=== PATIENT | female | born 1965 | race Caucasian/White ===

== ENCOUNTER → 2016-04-08 | Outpatient (CLI) | payer MEDICAID | LOC: RAD 12:34 | PROVIDERS: ATTEND Family Medicine | DX: M25.561 Pain in right knee (principal); M54.5 Low back pain | CPT/HCPCS: 72110 ==

== ENCOUNTER 2016-05-07 12:35 | Inpatient (IN) | payer MEDICAID ==
[2016-05-07] MEDS ORDERED: ASPIRIN 81 MG TABLET, CHEWABLE PO ONE (12:56)
[2016-05-07] MEDS ORDERED: DILTIAZEM HCL INJ 25 MG/5 ML VIAL IV ONE ×2 (13:10→14:11)
[2016-05-07] MEDS ORDERED: DILTIAZEM HCL/D5W 125 ML IV PRN (13:10)
[2016-05-07 13:40] LABS: HEMATOCRIT 40.9 % (36.0-47.0); HEMOGLOBIN 13.2 g/dL (12.0-15.5); HGB HCT DIFFERENCE -1.3; MEAN CORPUSCULAR HEMOGLOBIN 30.8 pg (27.0-33.4); MEAN CORPUSCULAR HGB CONC 32.4 g/dL (32.0-36.0); MEAN CORPUSCULAR VOLUME 95 fl (80-97); RED CELL DISTRIBUTION WIDTH 12.9 % (11.5-14.0); WHITE BLOOD COUNT 7.9 10^3/uL (4.0-10.5)
--- NOTE | 2016-05-07 13:47 | EKG REPORT ---
SEVERITY:- ABNORMAL ECG - ATRIAL FIBRILLATION WITH RVR. REPOLARIZATION ABNORMALITY, PROB RATE RELATED : Confirmed by: Jeramie Quevedo MD 07-May-2016 13:46:54
[2016-05-07 13:48] LABS: ALANINE AMINOTRANSFERASE 28 U/L (9-52); ALBUMIN 3.9 g/dL (3.5-5.0); ALKALINE PHOSPHATASE 105 U/L (38-126); ANION GAP 14 (5-19); ASPARTATE AMINO TRANSFERASE 31 U/L (14-36); BILIRUBIN,TOTAL 0.5 mg/dL (0.2-1.3); BLOOD UREA NITROGEN 6 mg/dL (7-20); CALCIUM 9.5 mg/dL (8.4-10.2); CARBON DIOXIDE 23 mmol/L (22-30); CHLORIDE 103 mmol/L (98-107); CREATINE KINASE 110 U/L (30-135); CREATININE RESULT 0.87 mg/dL (0.52-1.25); GLUCOSE 185 mg/dL (75-110); MAGNESIUM 1.4 mg/dL (1.6-2.3); POTASSIUM 3.9 mmol/L (3.6-5.0); SODIUM 139.9 mmol/L (137-145); TOTAL PROTEIN 7.1 g/dL (6.3-8.2)
[2016-05-07 14:04] LABS: CREATINE KINASE MB 0.56 ng/mL (<4.55)
[2016-05-07 14:05] LABS: BASOPHILS % (MANUAL) 0 % (0-2); EOSINOPHILS % (MANUAL) 0 % (0-6); HYPOCHROMASIA SLIGHT; LYMPHOCYTES % (MANUAL) 46 % (13-45); POLYCHROMASIA SLIGHT; TOTAL CELLS COUNTED 100
[2016-05-07 14:09] LABS: TROPONIN I < 0.012 ng/mL
[2016-05-07] MEDS ORDERED: NORMAL SALINE 1000 ML 1,000 ML IV ONE (14:17)
[2016-05-07 14:28] LABS: THYROID STIMULATING HORMONE 4.29 uIU/mL (0.47-4.68)
[2016-05-07] MEDS ORDERED: ENOXAPARIN SODIUM INJ 100 MG/1 ML DISP.SYRIN SUBCUT SCH (15:30)
[2016-05-07 16:36] LABS: APPEARANCE,URINE CLEAR; BILIRUBIN,URINE NEGATIVE (NEGATIVE); GLUCOSE, URINE NEGATIVE (NEGATIVE); KETONES,URINE NEGATIVE (NEGATIVE); LEUKOCYTE ESTERASE,URINE NEGATIVE (NEGATIVE); NITRITE,URINE NEGATIVE (NEGATIVE); PROTEIN,URINE NEGATIVE (NEGATIVE); URINE SPECIFIC GRAVITY 1.002; UROBILINOGEN,URINE NEGATIVE mg/dL (<2.0)
[2016-05-07 16:43] LABS: URINE BARBITURATES SCREEN NEGATIVE; URINE METHADONE SCREEN NEGATIVE; URINE OPIATES LOW NEGATIVE; URINE PHENCYCLIDINE SCREEN NEGATIVE
[2016-05-07] MEDS ORDERED: MAGNESIUM SULFATE/D5W 100 ML IV ONE (16:44)
--- NOTE | 2016-05-07 16:45 | ER Document Report ---
ED General - General Chief Complaint: Chest Pain Stated Complaint: CHEST PAIN TRAVEL OUTSIDE OF THE [place] IN LAST 30 DAYS: No - HPI Patient complains to provider of: chest pain palpitations weakness Notes: Patient coming in for evaluation of chest pain weakness ongoing for last 2 weeks. Patient also complains of right knee swelling and pain. Denies any trauma. Patient states no history diabetes states history of hypertension. Denies any recent travel denies any recent antibiotics. Upon triage patient was found to have a heart rate of 170. Patient denies any dizziness or blurred vision feeling faint denies any syncopal episode recently - Related Data Allergies/Adverse Reactions: tramadol Allergy (Intermediate, Verified 05/07/16 13:42) AMS Penicillins Allergy (Mild, Verified 05/07/16 13:42) rash Sulfa (Sulfonamide Antibiotics) Allergy (Mild, Verified 05/07/16 13:42) rash aspirin Allergy (Verified 05/07/16 13:42) Home Medications: Current Home Medications Albuterol Sulfate [Ventolin HFA MDI 18 GM] 2 puff IH TIDP PRN 05/07/16 [History] Alprazolam [Xanax] 1 mg PO TIDP PRN 05/07/16 [History] Amitriptyline HCl [Elavil 25 mg Tablet] 50 mg PO QHS 05/07/16 [History] Ammonium Lactate [Lac-Hydrin 12% Lotion 225Gm/Bottle] 1 applic TOP BIDP PRN 11/13 [History] Brexpiprazole [Rexulti] 3 mg PO QHS 05/07/16 [History] Clobetasol Propionate [Temovate 0.05% Cream 15 gm] 1 applic TOP BIDP PRN [History] Cyclobenzaprine HCl [Flexeril 10 mg Tablet] 10 mg PO TID 05/07/16 [History] Desvenlafaxine Succinate [Pristiq ER 100 mg Tab.sr] 100 mg PO DAILY 05/07/16 [ History] Dexlansoprazole [Dexilant 60 mg Capsule] 60 mg PO DAILY 05/07/16 [History] Diphenhydramine HCl [Benadryl 25 mg Capsule] 50 mg PO QHS 05/07/16 [History] Fluticasone/Salmeterol [Advair 250-50 Diskus 28 dose] 1 puff IH DAILY 05/07/16 [ History] Levothyroxine Sodium [Synthroid 0.05 mg Tablet] 50 mcg PO DAILY 05/07/16 [ History] Metformin HCl [Glucophage] 500 mg PO BID 05/07/16 [History] Simvastatin [Zocor 40 mg Tablet] 40 mg PO QPM 05/07/16 [History] Zolpidem Tartrate [Ambien] 10 mg PO QHS 05/07/16 [History] Past Medical History - Social History Smoking Status: Unknown if Ever Smoked Family History: CAD, CVA, DM, Hyperlipidemia, Hypertension, Malignancy, Thyroid Disfunction, Other - asthma Patient has suicidal ideation: No Patient has homicidal ideation: No - Past Medical History Cardiac Medical History: Reports: Hx Hypercholesterolemia Denies: Hx Coronary Artery Disease, Hx Heart Attack, Hx Hypertension Pulmonary Medical History: Reports: Hx Asthma, Hx Bronchitis Denies: Hx COPD, Hx Pneumonia Neurological Medical History: Denies: Hx Cerebrovascular Accident, Hx Seizures Endocrine Medical History: Reports: Hx Diabetes Mellitus Type 2 - borderline, Hx Hypothyroidism Renal/ Medical History: Denies: Hx Peritoneal Dialysis GI Medical History: Reports: Hx Gastritis, Hx Gastroesophageal Reflux Disease Musculoskeltal Medical History: Reports Hx Arthritis, Reports Hx Musculoskeletal Trauma Psychiatric Medical History: Reports: Hx Anxiety, Hx Depression - anxiety, Hx Schizophrenia Past Surgical History: Reports: Hx Cholecystectomy, Hx Tubal Ligation. Denies: Hx Hysterectomy - Immunizations Immunizations up to date: Yes Hx Diphtheria, Pertussis, Tetanus Vaccination: Yes Review of Systems - Review of Systems Constitutional: No symptoms reported EENT: No symptoms reported Cardiovascular: Chest pain Respiratory: Cough Gastrointestinal: No symptoms reported Genitourinary: No symptoms reported Female Genitourinary: No symptoms reported Musculoskeletal: No symptoms reported Skin: No symptoms reported Hematologic/Lymphatic: No symptoms reported Neurological/Psychological: No symptoms reported -: Yes All other systems reviewed and negative Physical Exam - Vital signs Vitals: Pulse Ox 98 05/07/16 13:05 Interpretation: Tachycardic - General General appearance: Appears well, Alert - HEENT Head: Normocephalic, Atraumatic Eyes: Normal Pupils: PERRL - Respiratory Respiratory status: No respiratory distress Chest status: Nontender Breath sounds: Normal Chest palpation: Normal - Cardiovascular Rhythm: Irregularly irregular, Tachycardia Heart sounds: Normal auscultation Murmur: No - Abdominal Inspection: Normal Distension: No distension Bowel sounds: Normal Tenderness: Nontender Organomegaly: No organomegaly - Back Back: Normal, Nontender - Extremities General upper extremity: Normal inspection, Nontender, Normal color, Normal ROM , Normal temperature General lower extremity: Normal inspection, Tender - Right knee, Edema - Right knee, Normal color, Normal ROM, Normal temperature, Normal weight bearing. No: Ysabel's sign - Neurological Neuro grossly intact: Yes Cognition: Normal Orientation: AAOx4 [place] Coma Scale Eye Opening: Spontaneous [place] Coma Scale Verbal: Oriented [place] Coma Scale Motor: Obeys Commands [place] Coma Scale Total: 15 Speech: Normal Motor strength normal: LUE, RUE, LLE, RLE Sensory: Normal - Psychological Associated symptoms: Normal affect, Normal mood - Skin Skin Temperature: Warm Skin Moisture: Dry Skin Color: Normal Course - Re-evaluation Re-evalutation: 05/07/16 19:06 Patient coming in for evaluation of atrial evaluation. Patient was started on Cardizem and did have a good response improve her A. fib with RVR. Patient also underwent a CTA no PE. Patient's lab work showed no acute etiology except for have a magnesium. Patient will be referred to hospitals for further evaluation and admission. - Vital Signs Vital signs: Temp Pulse Resp BP Pulse Ox 98.2 F 17 115/91 H 96 05/07/16 14:42 05/07/16 18:46 05/07/16 18:46 05/07/16 18:46 - Laboratory Result Diagrams: 05/07/16 13:10 05/07/16 13:10 Laboratory results interpreted by me: 05/07/16 05/07/16 05/07/16 13:10 13:10 13:10 Lymphocytes % (Manual) 46 H BUN 6 L Glucose 185 H Magnesium 1.4 L Free T4 0.64 L Critical Care Note - Critical Care Note Total time excluding time spent on procedures (mins): 35 Comments: Patient with A. fib RVR time spent managing drip Discharge - Discharge Clinical Impression: New onset a-fib, Hypomagnesemia Chest pain Qualifiers: Chest pain type: unspecified Qualified Code(s): R07.9 - Chest pain, unspecified Right knee pain Qualifiers: Chronicity: acute Qualified Code(s): M25.561 - Pain in right knee Diabetes Qualifiers: Diabetes mellitus type: type 2 Diabetes mellitus complication status: without complication Diabetes mellitus ferry terminal agent insulin use: without usp use Qualified Code(s): E11.9 - Type 2 diabetes mellitus without complications Disposition: ADMITTED INPATIENT Admitting Provider: Valeria Sousa Gregor Unit Admitted: [facility]
[2016-05-07] MEDS ORDERED: ACETAMINOPHEN 325 MG TABLET PO PRN (17:25)
[2016-05-07] MEDS ORDERED: ONDANSETRON HCL INJ/PF 4 MG/2 ML SDV IV PRN (17:35)
[2016-05-07] MEDS ORDERED: DEXTROSE 40% GEL 15 GM TUBE PO PRN ×2 (18:02)
[2016-05-07] MEDS ORDERED: DEXTROSE 50%-WATER 25 GM/50 ML DISP.SYRIN IV PRN ×2 (18:02)
[2016-05-07] MEDS ORDERED: GLUCAGON,HUMAN RECOMB 1 MG INJ IM PRN (18:02)
[2016-05-07] MEDS ORDERED: INSULIN LISPRO 100 UNIT/ML 3 ML VIAL SUBCUT PRN (18:02)
--- NOTE | 2016-05-07 18:13 | PDOC H&P ---
History of Present Illness Admission Date/PCP: 05/07/16 16:50 GEORGE SORTO MD Patient complains of: Chest pain History of Present Illness: SHOSHANA BOWMAN is a 50 year old female with several month history of palpitations/heart racing and associated chest and right arm pain. Patient has also noted over the same period of time swelling in her legs and weight gain. Patient drinks excessive amounts of fluids and seems to fixate on this when I talk about a fluid restriction. In addition patient complains of several day history of right knee pain. She has no injury to this area. She has no history of arthritis or gout. Medications have not been verified at the time of this dictation. Patient states that she gets medications filled at [facility] pharmacy on [address]. She states that she takes metformin, "a fluid pill", and other medications that she does not recall. Patient was noted to be in atrial fibrillation with rapid ventricular response in the emergency department. She has now converted to a sinus rhythm after being administer Cardizem. She is currently on Cardizem drip at 10 mg per hour. Past Medical History Cardiac Medical History: Reports: Hyperlipidema Denies: Coronary Artery Disease, Myocardial Infarction, Hypertension Pulmonary Medical History: Reports: Asthma, Bronchitis Denies: Chronic Obstructive Pulmonary Disease (COPD), Pneumonia Neurological Medical History: Denies: Seizures Endocrine Medical History: Reports: Diabetes Mellitus Type 2 - borderline, Hypothyroidism GI Medical History: Reports: Gastroesophageal Reflux Disease Musculoskeltal Medical History: Reports: Arthritis Psychiatric Medical History: Reports: Depression - anxiety Hematology: Denies: Anemia Past Surgical History Past Surgical History: Reports: Cholecystectomy, Tubal Ligation Denies: Hysterectomy Social History Information Source: Patient Smoking Status: Unknown if Ever Smoked Frequency of Alcohol Use: None Hx Recreational Drug Use: No Hx Prescription Drug Abuse: No - Advance Directive Resuscitation Status: Full Code Family History Family History: CAD, CVA, DM, Hyperlipidemia, Hypertension, Malignancy, Thyroid Disfunction, Other - asthma Parental Family History Reviewed: Yes Children Family History Reviewed: Yes Sibling(s) Family History Reviewed.: Yes Medication/Allergy Home Medications: Albuterol Sulfate [Ventolin HFA MDI 18 GM] 2 puff IH TIDP PRN 05/07/16 Alprazolam [Xanax] 1 mg PO TIDP PRN 05/07/16 Amitriptyline HCl [Elavil 25 mg Tablet] 50 mg PO QHS 05/07/16 Ammonium Lactate [Lac-Hydrin 12% Lotion 225Gm/Bottle] 1 applic TOP BIDP PRN 11/13 Brexpiprazole [Rexulti] 3 mg PO QHS 05/07/16 Clobetasol Propionate [Temovate 0.05% Cream 15 gm] 1 applic TOP BIDP PRN Cyclobenzaprine HCl [Flexeril 10 mg Tablet] 10 mg PO TID 05/07/16 Desvenlafaxine Succinate [Pristiq ER 100 mg Tab.sr] 100 mg PO DAILY 05/07/16 Dexlansoprazole [Dexilant 60 mg Capsule] 60 mg PO DAILY 05/07/16 Diphenhydramine HCl [Benadryl 25 mg Capsule] 50 mg PO QHS 05/07/16 Fluticasone/Salmeterol [Advair 250-50 Diskus 28 dose] 1 puff IH DAILY 05/07/16 Levothyroxine Sodium [Synthroid 0.05 mg Tablet] 50 mcg PO DAILY 05/07/16 Metformin HCl [Glucophage] 500 mg PO BID 05/07/16 Simvastatin [Zocor 40 mg Tablet] 40 mg PO QPM 05/07/16 Zolpidem Tartrate [Ambien] 10 mg PO QHS 05/07/16 Allergies/Adverse Reactions: tramadol Allergy (Intermediate, Verified 05/07/16 13:42) AMS Penicillins Allergy (Mild, Verified 05/07/16 13:42) rash Sulfa (Sulfonamide Antibiotics) Allergy (Mild, Verified 05/07/16 13:42) rash aspirin Allergy (Verified 05/07/16 13:42) Review of Systems Constitutional: PRESENT: fatigue, weight gain. ABSENT: chills, fever(s), headache(s), weight loss Eyes: ABSENT: visual disturbances Ears: ABSENT: hearing changes Cardiovascular: PRESENT: chest pain, edema. ABSENT: dyspnea on exertion, orthropnea, palpitations Respiratory: ABSENT: cough, hemoptysis Gastrointestinal: ABSENT: abdominal pain, constipation, diarrhea, hematemesis, hematochezia, nausea, vomiting Genitourinary: ABSENT: dysuria, hematuria Musculoskeletal: ABSENT: joint swelling Integumentary: ABSENT: rash, wounds Neurological: ABSENT: abnormal gait, abnormal speech, confusion, dizziness, focal weakness, syncope Psychiatric: ABSENT: anxiety, depression, homidical ideation, suicidal ideation Endocrine: PRESENT: polydipsia. ABSENT: cold intolerance, heat intolerance, polyuria Hematologic/Lymphatic: ABSENT: easy bleeding, easy bruising Physical Exam Vital Signs: Temp Pulse Resp BP Pulse Ox 98.2 F 21 H 138/80 H 99 05/07/16 14:42 05/07/16 16:31 05/07/16 16:31 05/07/16 16:31 PHYSICAL EXAM: GENERAL: Appears well, no acute distress HEENT: Normocephalic, no scleral icterus, conjunctiva clear, EOEM intact, PERRLA , moist mucous membranes, edentulous NECK: trachea midline, no thyromegally RESPIRATORY: Clear to auscultation, no wheezes/rhonchi CARDIAC: Regular rate and rhythm, no murmur/rakesh/rub ABDOMEN: Soft, no distension, no tenderness, no guarding, normal bowel sounds, negative Butler sign RECTAL: deferred : deferred EXTREMITIES: 1+ bilateral lower extremity edema MUSCULOSKELETAL: No joint swelling or deformity VASCULAR: normal peripheral pulses NEUROLOGIC: Alert, oriented to person/place/time, normal speech, cranial nerves grossly intact, 5/5 strength in all extremities, tactile sensation intact in all extremities SKIN: No rash, no wounds, no worrisome skin lesions PSYCHIATRIC: Normal mood, unusual affect Results Laboratory Results: Labs- All tests 24 hr 05/07/16 05/07/16 05/07/16 13:10 13:10 13:10 WBC 7.9 RBC 4.30 Hgb 13.2 Hct 40.9 MCV 95 MCH 30.8 MCHC 32.4 RDW 12.9 Plt Count 338 Total Counted 100 Seg Neutrophils % Not Reportable Seg Neuts % (Manual) 45 Lymphocytes % Not Reportable Lymphocytes % (Manual) 46 H Atypical Lymphs % 1 Monocytes % Not Reportable Monocytes % (Manual) 8 Eosinophils % Not Reportable Eosinophils % (Manual) 0 Basophils % Not Reportable Basophils % (Manual) 0 Absolute Neutrophils Not Reportable Abs Neuts (Manual) 3.6 Absolute Lymphocytes Not Reportable Abs Lymphs (Manual) 3.7 Absolute Monocytes Not Reportable Abs Monocytes (Manual) 0.6 Absolute Eosinophils Not Reportable Absolute Eos (Manual) 0.0 Absolute Basophils Not Reportable Abs Basophils (Manual) 0.0 Platelet Comment ADEQUATE Polychromasia SLIGHT Hypochromasia SLIGHT PT 12.0 INR 0.86 Sodium 139.9 Potassium 3.9 Chloride 103 Carbon Dioxide 23 Anion Gap 14 BUN 6 L Creatinine 0.87 Est GFR ( Amer) > 60 Est GFR (Non-Af Amer) > 60 Glucose 185 H Calcium 9.5 Magnesium 1.4 L Total Bilirubin 0.5 Direct Bilirubin 0.0 AST 31 ALT 28 Alkaline Phosphatase 105 Creatine Kinase 110 CK-MB (CK-2) Troponin I Total Protein 7.1 Albumin 3.9 TSH Free T4 Urine Color Urine Appearance Urine pH Ur Specific Chancellor Urine Protein Urine Glucose (UA) Urine Ketones Urine Blood Urine Nitrite Urine Bilirubin Urine Urobilinogen Ur Leukocyte Esterase Urine WBC (Auto) Urine Bacteria (Auto) Squamous Epi Cells Auto Urine Ascorbic Acid Urine Opiates Screen Urine Methadone Screen Ur Barbiturates Screen Ur Phencyclidine Scrn Ur Amphetamines Screen U Benzodiazepines Scrn Urine Cocaine Screen U Marijuana (THC) Screen 05/07/16 05/07/16 05/07/16 13:10 13:10 16:00 WBC RBC Hgb Hct MCV MCH MCHC RDW Plt Count Total Counted Seg Neutrophils % Seg Neuts % (Manual) Lymphocytes % Lymphocytes % (Manual) Atypical Lymphs % Monocytes % Monocytes % (Manual) Eosinophils % Eosinophils % (Manual) Basophils % Basophils % (Manual) Absolute Neutrophils Abs Neuts (Manual) Absolute Lymphocytes Abs Lymphs (Manual) Absolute Monocytes Abs Monocytes (Manual) Absolute Eosinophils Absolute Eos (Manual) Absolute Basophils Abs Basophils (Manual) Platelet Comment Polychromasia Hypochromasia PT INR Sodium Potassium Chloride Carbon Dioxide Anion Gap BUN Creatinine Est GFR ( Amer) Est GFR (Non-Af Amer) Glucose Calcium Magnesium Total Bilirubin Direct Bilirubin AST ALT Alkaline Phosphatase Creatine Kinase CK-MB (CK-2) 0.56 Troponin I < 0.012 Total Protein Albumin TSH 4.29 Free T4 0.64 L Urine Color STRAW Urine Appearance CLEAR Urine pH 6.0 Ur Specific Chancellor 1.002 Urine Protein NEGATIVE Urine Glucose (UA) NEGATIVE Urine Ketones NEGATIVE Urine Blood NEGATIVE Urine Nitrite NEGATIVE Urine Bilirubin NEGATIVE Urine Urobilinogen NEGATIVE Ur Leukocyte Esterase NEGATIVE Urine WBC (Auto) 1 Urine Bacteria (Auto) TRACE Squamous Epi Cells Auto 3 Urine Ascorbic Acid NEGATIVE Urine Opiates Screen Urine Methadone Screen Ur Barbiturates Screen Ur Phencyclidine Scrn Ur Amphetamines Screen U Benzodiazepines Scrn Urine Cocaine Screen U Marijuana (THC) Screen 05/07/16 16:00 WBC RBC Hgb Hct MCV MCH MCHC RDW Plt Count Total Counted Seg Neutrophils % Seg Neuts % (Manual) Lymphocytes % Lymphocytes % (Manual) Atypical Lymphs % Monocytes % Monocytes % (Manual) Eosinophils % Eosinophils % (Manual) Basophils % Basophils % (Manual) Absolute Neutrophils Abs Neuts (Manual) Absolute Lymphocytes Abs Lymphs (Manual) Absolute Monocytes Abs Monocytes (Manual) Absolute Eosinophils Absolute Eos (Manual) Absolute Basophils Abs Basophils (Manual) Platelet Comment Polychromasia Hypochromasia PT INR Sodium Potassium Chloride Carbon Dioxide Anion Gap BUN Creatinine Est GFR ( Amer) Est GFR (Non-Af Amer) Glucose Calcium Magnesium Total Bilirubin Direct Bilirubin AST ALT Alkaline Phosphatase Creatine Kinase CK-MB (CK-2) Troponin I Total Protein Albumin TSH Free T4 Urine Color Urine Appearance Urine pH Ur Specific Chancellor Urine Protein Urine Glucose (UA) Urine Ketones Urine Blood Urine Nitrite Urine Bilirubin Urine Urobilinogen Ur Leukocyte Esterase Urine WBC (Auto) Urine Bacteria (Auto) Squamous Epi Cells Auto Urine Ascorbic Acid Urine Opiates Screen NEGATIVE Urine Methadone Screen NEGATIVE Ur Barbiturates Screen NEGATIVE Ur Phencyclidine Scrn NEGATIVE Ur Amphetamines Screen NEGATIVE U Benzodiazepines Scrn UNCONFIRMED POSITIVE Urine Cocaine Screen NEGATIVE U Marijuana (THC) Screen NEGATIVE EKG Comments: Initial EKG showed atrial fibrillation with rapid ventricular response. Second EKG shows sinus rhythm. Impressions: Chest X-Ray 05/07/16 12:56 IMPRESSION: NO ACUTE RADIOGRAPHIC FINDING IN THE CHEST. Knee X-Ray 05/07/16 12:58 IMPRESSION: NEGATIVE STUDY OF THE RIGHT KNEE. NO EXPLANATION FOR PAIN. Chest/Abdomen CTA 05/07/16 14:17 IMPRESSION: No acute consolidations or pleural effusions are identified. NO PULMONARY EMBOLI. Other findings as noted above Assessment & Plan - Diagnosis (1) New onset a-fib Is this a current diagnosis for this admission?: YesPlan: Admit to the hospital on telemetry monitoring. Start Toprol-XL 25 mg twice daily. Discontinue Cardizem drip now the patient is in sinus rhythm. Check echocardiogram. Serial cardiac enzymes to rule out DC. CTA of chest negative for pulmonary embolism. Stress test in the morning. Consult Dr. Sweeney of cardiology. Continue Lovenox initiated in the emergency department. (2) Chest pain Qualifiers: Chest pain type: unspecified Qualified Code(s): R07.9 - Chest pain, unspecified Is this a current diagnosis for this admission?: YesPlan: Serial cardiac enzymes to rule out DC. Stress test in the morning. Consult cardiology. (3) Diabetes Qualifiers: Diabetes mellitus type: type 2 Diabetes mellitus complication status: without complication Diabetes mellitus chcf insulin use: without chcf use Qualified Code(s): E11.9 - Type 2 diabetes mellitus without complications Is this a current diagnosis for this admission?: YesPlan: Verify home dose of metformin and resume. Sliding scale insulin coverage. (4) Hypothyroidism Is this a current diagnosis for this admission?: YesPlan: Verify home medication. (5) Edema Is this a current diagnosis for this admission?: YesPlan: Check proBNP level and echocardiogram. Start Lasix 20 mg. Start 1500 mL fluid restriction. (6) Right knee pain Qualifiers: Chronicity: acute Qualified Code(s): M25.561 - Pain in right knee Is this a current diagnosis for this admission?: YesPlan: X-ray negative. Exam unremarkable with no inflammatory findings. (7) Schizoaffective disorder Is this a current diagnosis for this admission?: Yes (8) Anxiety Is this a current diagnosis for this admission?: Yes (9) Hypomagnesemia Is this a current diagnosis for this admission?: Yes - Time Time Spent: Greater than 70 Minutes - Inpatient Certification Based on my medical assessment, after consideration of the patient's comorbidities, presenting symptoms, or acuity I expect that the services needed warrant INPATIENT care.: Yes I certify that my determination is in accordance with my understanding of Medicare's requirements for reasonable and necessary INPATIENT services [42 CFR 412.3e].: Yes Medical Necessity: Need For Continuous Telemetry Monitoring
[2016-05-07] MEDS ORDERED: METOPROLOL SUCCINATE 25 MG TAB.SR.24H PO ONE (19:00)
--- NOTE | 2016-05-07 20:32 | PDOC CONSULTATION ---
Consultation Consult Date: 05/07/16 Attending physician:: RANJIT ECKERT Consult reason:: Atrial fibrillation, chest pain History of Present Illness Admission Date/PCP: 05/07/16 17:26 GEORGE SORTO MD Patient complains of: Palpitations and chest pains History of Present Illness: SHOSHANA BOWMAN is a 50 year old female with several month history of palpitations/heart racing and associated chest and right arm pain. Patient has also noted over the same period of time swelling in her legs and weight gain. In addition patient complains of several day history of right knee pain. She has no history of injury to this area. She has no history of arthritis or gout. Patient describes the chest discomfort as sharp, central chest, radiating to the right arm. The discomfort is rather constant. There is no aggravating factor that she has noted. There are no other associated symptoms such as nausea vomiting diaphoresis. Patient does feel palpitations when she has chest pain. The discomfort is acute in onset. The discomfort has improved since hospitalization. Patient was noted to be in atrial fibrillation with rapid ventricular response in the emergency department. She has now converted to a sinus rhythm after being administer Cardizem. She is currently on Cardizem drip at 10 mg per hour. Patient denied any history of prior heart problems but does give strong family history of premature coronary artery disease. Her mother apparently in hospital at the age of 53 of sudden cardiac . Patient does give history of loud snoring, daytime fatigue and sleepiness. Patient also has difficulty falling asleep and staying asleep. Past Medical History Cardiac Medical History: Reports: Hyperlipidema Denies: Coronary Artery Disease, Myocardial Infarction, Hypertension Pulmonary Medical History: Reports: Asthma, Bronchitis Denies: Chronic Obstructive Pulmonary Disease (COPD), Pneumonia Neurological Medical History: Denies: Seizures Endocrine Medical History: Reports: Diabetes Mellitus Type 2 - borderline, Hypothyroidism GI Medical History: Reports: Gastroesophageal Reflux Disease Musculoskeltal Medical History: Reports: Arthritis Psychiatric Medical History: Reports: Depression - anxiety Hematology: Denies: Anemia Past Surgical History Past Surgical History: Reports: Cholecystectomy, Tubal Ligation Denies: Hysterectomy Social History Information Source: Patient Smoking Status: Unknown if Ever Smoked Frequency of Alcohol Use: None Hx Recreational Drug Use: No Hx Prescription Drug Abuse: No - Advance Directive Resuscitation Status: Full Code Surrogate healthcare decision maker:: Patient eldest son by the name of [place] Family History Family History: CAD, CVA, DM, Hyperlipidemia, Hypertension, Malignancy, Thyroid Disfunction, Other - asthma Parental Family History Reviewed: Yes Children Family History Reviewed: Yes Sibling(s) Family History Reviewed.: Yes - Positive for premature CAD in the family Medication/Allergy Home Medications: Alprazolam [Xanax] 1 mg PO TIDP PRN 05/07/16 Amitriptyline HCl [Elavil 25 mg Tablet] 50 mg PO QHS 05/07/16 Ammonium Lactate [Lac-Hydrin 12% Lotion 225Gm/Bottle] 1 applic TOP BIDP PRN 11/13 Brexpiprazole [Rexulti] 3 mg PO QHS 05/07/16 Clobetasol Propionate [Temovate 0.05% Cream 15 gm] 1 applic TOP BIDP PRN Dexlansoprazole [Dexilant 60 mg Capsule] 60 mg PO DAILY 05/07/16 Diphenhydramine HCl [Benadryl 25 mg Capsule] 50 mg PO QHS 05/07/16 Fluticasone/Salmeterol [Advair 250-50 Diskus 28 dose] 1 puff IH BID 05/07/16 Levothyroxine Sodium [Synthroid 0.05 mg Tablet] 50 mcg PO QAM 05/07/16 Metformin HCl [Glucophage] 500 mg PO BID 05/07/16 Simvastatin [Zocor 40 mg Tablet] 40 mg PO QPM 05/07/16 Zolpidem Tartrate [Ambien] 10 mg PO QHS 05/07/16 Desvenlafaxine Succinate [Pristiq ER 100 mg Tab.sr] 100 mg PO DAILY 05/08/16 Allergies/Adverse Reactions: tramadol Allergy (Intermediate, Verified 05/07/16 13:42) AMS Penicillins Allergy (Mild, Verified 05/07/16 13:42) rash Sulfa (Sulfonamide Antibiotics) Allergy (Mild, Verified 05/07/16 13:42) rash aspirin Allergy (Verified 05/07/16 13:42) Review of Systems Review of Systems: Please see history of present illness and past medical history as wall. Constitutional: No fever or chills reported. Head : No recent chronic headaches, recent head injury. Eyes: No recent eye pain, diplopia, redness, discharge, acute visual changes. Ears: No recent chronic ear pain, acute hearing loss, ear discharge. Oral cavity: No recent ulcerations, bleeding, oral cavity discomfort. Neck: No recent acute neck pain reported. Hematologic: No recent easy bruising or bleeding or hematologic malignancy reported. Lymphatic: No recent lymphatic malignancy, chronic lymphadenopathy reported yet Cardiovascular system review: See history of present illness. Respiratory system review: No recent chronic cough, hemoptysis, blood clots in the lungs reported. Mild Shortness of breath on exertion Gastrointestinal system review: Negative for any recent acute or chronic abdominal pain, hematemesis, melena, recent change in bowel habits. Genitourinary system review: No recent acute or chronic hematuria, flank pain, UTI etc. reported. Skin system review: Negative for any recent abnormal bruising, no rash, no pruritus reported. Neurologic: No prior history of strokes, mini strokes, seizure disorder. Psychologic: No history of major psychosis or major depression reported. Patient gives history of minor depression Musculoskeletal: Minor aches and pains reported. No acute joint swelling reported. Endocrine: No recent polyuria, polydipsia, recent heat or cold intolerance. Physical Exam Vital Signs: Temp Pulse Resp BP Pulse Ox 98.2 F 17 115/91 H 96 05/07/16 14:42 05/07/16 18:46 05/07/16 18:46 05/07/16 18:46 Exam: GENERAL: well-nourished and in no acute distress. Alert and oriented x3 HEAD: Atraumatic, normocephalic. EYES: Pupils equal round and reactive to light, extraocular movements intact, sclera anicteric, conjunctiva are normal. ENT: TMs normal, nares patent, oropharynx clear without exudates. Moist mucous membranes. No oral ulcerations or bleeding gums noted NECK: supple without lymphadenopathy. Trachea is central. No cervical or axillary lymphadenopathy noted. Carotids are 2+, JVD WNL LUNGS: Respiration seems nonlabored, no significant accessory muscle action noted. Breath sounds clear to auscultation bilaterally and equal. No wheezes rales or rhonchi. No significant dullness noted on percussion. CHEST: Palpation of the chest wall shows no significant chest wall tenderness or abnormalities. HEART: [place] [employer], No PSH, 1/6 YA aortic area, 1/6 nguyen systolic murmur mitral area, no rubs, no gallops. ABDOMEN: Soft, no significant tenderness appreciated, normoactive bowel sounds. No guarding, no rebound. No rigidity noted . No masses appreciated. EXTREMITIES: Pedal pulses are 1-2+, no calf tenderness noted. No clubbing or cyanosis.trace to 1+ pedal edema noted NEUROLOGICAL: Focused neurological exam showed no significant neurologic deficit. Normal speech, no focal weakness appreciated. PSYCH: Normal mood, normal affect. Judgment and insight within normal limits. SKIN: No significant ecchymosis, rash, ulcerations or signs of pruritus noted. MUSCULOSKELETAL EXAM: No significant joint swelling noted. Results EKG Comments: Initial EKG showed atrial fibrillation with rapid ventricular response at 170 bpm. Subsequent EKG shows sinus rhythm and nonspecific T-wave inversion inferior and lateral chest leads. Impressions: Chest X-Ray 05/07/16 12:56 IMPRESSION: NO ACUTE RADIOGRAPHIC FINDING IN THE CHEST. Knee X-Ray 05/07/16 12:58 IMPRESSION: NEGATIVE STUDY OF THE RIGHT KNEE. NO EXPLANATION FOR PAIN. Chest/Abdomen CTA 05/07/16 14:17 IMPRESSION: No acute consolidations or pleural effusions are identified. NO PULMONARY EMBOLI. Other findings as noted above Assessment & Plan - Diagnosis (1) Paroxysmal atrial fibrillation Is this a current diagnosis for this admission?: Yes (2) Obesity Qualifiers: Obesity severity: unspecified obesity severity Is this a current diagnosis for this admission?: Yes (3) Sleep disorder breathing Is this a current diagnosis for this admission?: Yes (4) Chest pain Qualifiers: Chest pain type: unspecified Qualified Code(s): R07.9 - Chest pain, unspecified Is this a current diagnosis for this admission?: Yes (5) Diabetes Qualifiers: Diabetes mellitus type: type 2 Diabetes mellitus complication status: without complication Diabetes mellitus correction insulin use: without correction use Qualified Code(s): E11.9 - Type 2 diabetes mellitus without complications Is this a current diagnosis for this admission?: Yes - Notes Notes: Paroxysmal atrial fibrillation: Patient gives history of intermittent irregular heartbeat. This is most likely related to obesity, sleep apnea syndrome. Discussed association of both obesity and sleep apnea syndrome with atrial fibrillation. Patient encouraged in weight loss. Patient will also benefit from scheduling a sleep study. Do not feel chronic long-term anticoagulation is needed at this point but patient will be considered for ablation therapy should patient has recurrence of atrial fibrillation. Patient Aly score is noted to be 1. Obesity Discussed adverse effect of overweight/obesity on cardiovascular event rate, sleep apnea, diabetes and hypertension et cetera. Patient has been recommended weight loss. Sleep disordered breathing: Based on patient's symptoms, oropharyngeal exam, body habitus, comorbid diagnosis etc., there is high probability of underlying sleep apnea syndrome. Evaluation is recommended for sleep apnea as treatment of this condition if found is likely to benefit patient and reduce patient's future cardiovascular risk. Chest pain: Patient has some typical and atypical features of chest pain. Cardiac enzymes so far has been negative. Electrocardiogram did not show any definitive ST segment changes. Multiple differential diagnoses exist in this patient. In descending order of probability this includes underlying coronary artery disease, gastroesophageal reflux, musculoskeletal pain, referred pain from elsewhere, anxiety panic disorder etc.Patient has significant cardiac risk factors, which indicates that there is a intermediate probability of chest discomfort coming from underlying CAD. Feel that it would need to be evaluated further. Discussed evaluation to assess this. In this regard risk benefits of nuclear stress test and other alternative processes were discussed in detail. The patient prefers to undergo nuclear stress test. The small risk of radiation , myocardial infarction, , cardiac arrhythmias, respiratory distress etc. were discussed. Patient understood the risks and gave informed consent. Nuclear stress test was therefore scheduled. For risk evaluation, patient is also being scheduled for a 2-D echocardiogram. Patient questions were answered. Diabetes:Recommend good control of blood sugar. However should avoid any hypoglycemia. Patient being expertly managed by primary care M.D. - Time Time Spent: 30 to 50 Minutes - CODE STATUS was discussed, patient remains full code. Surrogate decision-maker patient's eldest son. Multiple medical problems were addressed.More than 50% of the time spent coordinating care, discussing management plans with involved caregivers. Management plans discussed with involved personnels. Medical decision making was of moderate complexity.
[2016-05-07 21:18] LABS: TROPONIN I < 0.012 ng/mL
[2016-05-08 02:08] LABS: TROPONIN I < 0.012 ng/mL
[2016-05-08 07:58] LABS: ABSOLUTE BASOPHILS # (AUTO) 0.1 10^3/uL (0.0-0.2); ABSOLUTE LYMPHOCYTES (AUTO) 2.8 10^3/uL (0.5-4.7); ABSOLUTE MONOCYTES (AUTO) 0.4 10^3/uL (0.1-1.4); ABSOLUTE NEUT (AUTO) 3.7 10^3/uL (1.7-8.2); BASOPHILS % (AUTO) 0.7 % (0-2); EOSINOPHILS % (AUTO) 0.4 % (0-6); HEMATOCRIT 37.9 % (36.0-47.0); HEMOGLOBIN 12.5 g/dL (12.0-15.5); HGB HCT DIFFERENCE -0.4; LYMPHOCYTES % (AUTO) 39.5 % (13-45); MEAN CORPUSCULAR HEMOGLOBIN 31.5 pg (27.0-33.4); MEAN CORPUSCULAR HGB CONC 32.9 g/dL (32.0-36.0); MEAN CORPUSCULAR VOLUME 96 fl (80-97); MONOCYTES % (AUTO) 6.3 % (3-13); RED BLOOD COUNT 3.96 10^6/uL (3.72-5.28); RED CELL DISTRIBUTION WIDTH 13.1 % (11.5-14.0); SEGMENTED NEUTROPHILS % (AUTO) 53.1 % (42-78)
--- NOTE | 2016-05-08 08:28 | EKG REPORT ---
SEVERITY:- ABNORMAL ECG - SINUS RHYTHM NONSPECIFIC T ABNORMALITIES, DIFFUSE LEADS BORDERLINE PROLONGED QT INTERVAL : Confirmed by: Jeramie Quevedo MD 08-May-2016 08:28:35
--- NOTE | 2016-05-08 08:28 | EKG REPORT ---
SEVERITY:- ABNORMAL ECG - SINUS RHYTHM NONSPECIFIC T ABNORMALITIES, DIFFUSE LEADS BORDERLINE PROLONGED QT INTERVAL : Confirmed by: Jeramie Quevedo MD 08-May-2016 08:28:27
--- NOTE | 2016-05-08 08:29 | EKG REPORT ---
SEVERITY:- ABNORMAL ECG - SINUS OR ECTOPIC ATRIAL RHYTHM NONSPECIFIC T ABNORMALITIES, DIFFUSE LEADS : Confirmed by: Jeramie Quevedo MD 08-May-2016 08:28:55
[2016-05-08] MEDS ORDERED: FUROSEMIDE 20 MG TABLET PO SCH (10:00)
[2016-05-08] MEDS ORDERED: METOPROLOL SUCCINATE 25 MG TAB.SR.24H PO SCH (10:00)
[2016-05-08] MEDS ORDERED: ASPIRIN 81 MG TABLET, ENT COATED PO SCH (10:00)
[2016-05-08] MEDS ORDERED: CLOPIDOGREL BISULFATE 75 MG TABLET PO SCH (10:00)
[2016-05-08 10:45] LABS: ANION GAP 13 (5-19); BLOOD UREA NITROGEN 6 mg/dL (7-20); CALCIUM 10.2 mg/dL (8.4-10.2); CARBON DIOXIDE 25 mmol/L (22-30); CHLORIDE 103 mmol/L (98-107); CHOLESTEROL 200.31 mg/dL (0-200); CREATINE KINASE 137 U/L (30-135); CREATININE RESULT 0.85 mg/dL (0.52-1.25); Direct HDL 56 mg/dL (>40); GLUCOSE 150 mg/dL (75-110); MAGNESIUM 1.7 mg/dL (1.6-2.3); POTASSIUM 4.5 mmol/L (3.6-5.0); SODIUM 141.4 mmol/L (137-145); TRIGLYCERIDES 344 mg/dL (<150)
[2016-05-08 10:55] LABS: DIRECT LDL 81 mg/dL (<100)
[2016-05-08 10:56] LABS: VLDL CHOLESTEROL 68.8 mg/dL (10-31)
[2016-05-08 10:59] LABS: CREATINE KINASE MB 0.93 ng/mL (<4.55)
[2016-05-08 11:00] LABS: TROPONIN I < 0.012 ng/mL
[2016-05-08] MEDS ORDERED: ALPRAZOLAM 0.5 MG TABLET PO PRN (13:05)
--- NOTE | 2016-05-08 14:33 | DRAGON STRESS TEST REPORT ---
INTRAVENOUS LEXISCAN CARDIOLITE STRESS TEST USING SINGLE PHOTON EMMISION COMPUTERIZED TOMOGRAPHIC. DATE OF PROCEDURE: May 08, 2016 INDICATION : Chest pain CARDIAC RISK FACTORS: Diabetes, hypertension, dyslipidemia, family history of CAD and CVA RESTING EKG: Chest pain STRESS EKG: No significant changes noted with LexiScan bolus REASON FOR TERMINATION: Protocol. PROCEDURE REPORT: Baseline heart rate 90 beats per minute with blood pressure of 133/68. Patient had no significant complaints. Heart rate at 2 minutes post bolus 115 with a blood pressure of 108/77. 3 minutes post bolus heart rate 98 with blood pressure of 110/60. No significant EKG changes were noted. Patient had no significant complaints during the procedure or postprocedure. CONCLUSIONS: Normal EKG and hemodynamic response to IV LexiScan. NUCLEAR DATA: At rest the patient was given 14.35 millicuries of technetium 99 sestamibi injected intravenously. As per protocol rest gated SPECT images were obtained. Subsequently the patient was given intravenous LexiScan at a dose of 0.4 mg in 5 mL intravenously, followed by flush with normal saline. Subsequently the stress dose of 43.4 millicuries of technetium 99 sestamibi was injected intravenously. As per protocol stress gated images were obtained. NUCLEAR INTERPRETATION: Both raw and processed data were used for interpretation. Visual, qualitative, computer-generated quantitative data was used. There was good myocardial uptake of technetium compound. Motion artifact and soft tissue attenuations were noted. Increased visceral uptake was noted. No definitive areas of transient perfusion defect noted. No definitive areas of fixed perfusion defect or scars noted. EKG gated imaging showed LV EF at 53 %, rest and stress gated EF similar visually. T. I D. ratio was 0.91. Lung heart ratio noted to be within normal limits 0.28. No significant extracardiac and abnormal radiotracer activities were noted. RV free wall uptake was noted to be borderline increased. IMPRESSION: Also refer to comments under nuclear interpretation. Also test results needs to be interpreted in the context of pretest probability. 1. There is no definitive scintigraphic evidence of LexiScan induced myocardial ischemia. 2. There is no definitive scintigraphic evidence of myocardial infarction/scar. 3. EKG gated imaging shows left ejection fraction of approximately 53 %. 4. Clinical correlation requested as occasionally single vessel disease or balanced ischemia could be missed. In approximately 10% of the cases Lexiscan may not cause adequate vasodilatory stress. RECOMMENDATIONS: Aggressive risk factor modification, medical therapy. Clinical correlation with echocardiogram derived ejection fraction. Inability to exercise by itself can lead to increased cardiovascular event risks. Consider cardiology consultation if clinically indicated. I AM AVAILABLE FOR CARDIOLOGY CONSULTATION AND FOLLOWUP IF REQUESTED BY PMD Randell Sweeney M.D., MRCP [employer] founder and chief executive officer, Board certified in cardiovascular diseases, Nuclear cardiology, Echocardiography Cardiac CT and cardiac MRI Ph. [phone] [facility]
[2016-05-08] MEDS ORDERED: REGADENOSON INJ 0.4 MG/5 ML DISP.SYRIN IV ONE (14:54)
--- NOTE | 2016-05-08 16:11 | PDOC DISCHARGE SUMMARY ---
General - Admit/Disc Date/PCP Admission Date/Primary Care Provider: 05/07/16 17:26 GEORGE SORTO MD Discharge Date: 05/08/16 - Discharge Diagnosis (1) New onset a-fib Is this a current diagnosis for this admission?: Yes (2) Chest pain Is this a current diagnosis for this admission?: Yes (3) Diabetes Is this a current diagnosis for this admission?: Yes (4) Hypothyroidism Is this a current diagnosis for this admission?: Yes (5) Edema Is this a current diagnosis for this admission?: Yes (6) Right knee pain Is this a current diagnosis for this admission?: Yes (7) Schizoaffective disorder Is this a current diagnosis for this admission?: Yes (8) Anxiety Is this a current diagnosis for this admission?: Yes (9) Hypomagnesemia Is this a current diagnosis for this admission?: Yes - Additional Information Resuscitation Status: Full Code Discharge Diet: Cardiac - 1500ml daily fluid restriction Discharge Activity: Activity As Tolerated Home Medications: Alprazolam [Xanax] 1 mg PO TIDP PRN 05/07/16 Amitriptyline HCl [Elavil 25 mg Tablet] 50 mg PO QHS 05/07/16 Ammonium Lactate [Lac-Hydrin 12% Lotion 225Gm/Bottle] 1 applic TOP BIDP PRN 11/13 Brexpiprazole [Rexulti] 3 mg PO QHS 05/07/16 Clobetasol Propionate [Temovate 0.05% Cream 15 gm] 1 applic TOP BIDP PRN Dexlansoprazole [Dexilant 60 mg Capsule] 60 mg PO DAILY 05/07/16 Diphenhydramine HCl [Benadryl 25 mg Capsule] 50 mg PO QHS 05/07/16 Fluticasone/Salmeterol [Advair 250-50 Diskus 28 dose] 1 puff IH BID 05/07/16 Levothyroxine Sodium [Synthroid 0.05 mg Tablet] 50 mcg PO QAM 05/07/16 Metformin HCl [Glucophage] 500 mg PO BID 05/07/16 Simvastatin [Zocor 40 mg Tablet] 40 mg PO QPM 05/07/16 Zolpidem Tartrate [Ambien] 10 mg PO QHS 05/07/16 Apixaban [Eliquis 5 mg Tablet] 5 mg PO BID #60 tablet 05/08/16 Desvenlafaxine Succinate [Pristiq ER 100 mg Tab.sr] 100 mg PO DAILY 05/08/16 Furosemide [Lasix] 20 mg PO DAILY #30 tablet 05/08/16 Metoprolol Succinate [Toprol Xl 25 mg Tab.sr] 25 mg PO Q12 #60 tab.sr.24h History of Present Illness Patient complains of: Chest pain History of Present Illness: SHOSHANA BOWMAN is a 50 year old female with several month history of palpitations/heart racing and associated chest and right arm pain. Patient has also noted over the same period of time swelling in her legs and weight gain. Patient drinks excessive amounts of fluids and seems to fixate on this when I talk about a fluid restriction. In addition patient complains of several day history of right knee pain. She has no injury to this area. She has no history of arthritis or gout. Medications have not been verified at the time of this dictation. Patient states that she gets medications filled at [facility] pharmacy on [facility]. She states that she takes metformin, "a fluid pill", and other medications that she does not recall. Patient was noted to be in atrial fibrillation with rapid ventricular response in the emergency department. She has now converted to a sinus rhythm after being administer Cardizem. She is currently on Cardizem drip at 10 mg per hour. Hospital Course Hospital Course: Patient was admitted for chest pain and new onset atrial fibrillation. She converted to sinus rhythm in the emergency department with Cardizem. She was started on Toprol-XL for heart rate control. She was initially started on Lovenox but will be transitioned to oral Eliquis on discharge. She was evaluated by Dr. Sweeney of cardiology. She underwent stress test that showed no evidence of ischemia. Echocardiogram was performed but results are pending at time of this dictation. Patient was in sinus rhythm at time of discharge. She was chest pain-free. She will need to follow-up with Dr. Sweeney as an outpatient. Patient does have some sleep apnea symptoms and these will be addressed by Dr. Sweeney as an outpatient as well. Physical Exam Vital Signs: Temp Pulse Resp BP Pulse Ox 97.9 F 91 20 136/56 H 97 05/08/16 13:04 05/08/16 14:00 05/08/16 13:04 05/08/16 13:04 05/08/16 13:04 Intake & Output 05/07/16 05/08/16 05/09/16 06:59 06:59 06:59 Intake Total 139 640 Output Total 400 400 Balance -261 240 Weight 103.4 kg GENERAL: No acute distress HEENT: Conjunctiva clear, nonicteric, moist mucous membranes, no JVD, midline trachea RESPIRATORY: Clear to auscultation bilaterally, no wheezes, no rhonchi CARDIAC: Regular rate and rhythm, no murmurs/gallops/rubs ABDOMEN: Soft, nondistended, nontender, positive bowel sounds, no rebound, no guarding EXTREMETIES: No edema, cyanosis, clubbing NEUROLOGIC: Alert, oriented to person/place/time, CN's grossly intact, no focal deficits SKIN: No rash, wounds PSYCH: Normal mood, unusual affect Results Laboratory Results: 05/08/16 07:38 05/08/16 10:05 05/08/16 05/08/16 05/08/16 07:38 07:38 10:05 WBC 7.0 RBC 3.96 Hgb 12.5 Hct 37.9 MCV 96 MCH 31.5 MCHC 32.9 RDW 13.1 Plt Count 287 Seg Neutrophils % 53.1 Lymphocytes % 39.5 Monocytes % 6.3 Eosinophils % 0.4 Basophils % 0.7 Absolute Neutrophils 3.7 Absolute Lymphocytes 2.8 Absolute Monocytes 0.4 Absolute Eosinophils 0.0 Absolute Basophils 0.1 Sodium Cancelled 141.4 Potassium Cancelled 4.5 Chloride Cancelled 103 Carbon Dioxide Cancelled 25 Anion Gap Cancelled 13 BUN Cancelled 6 L Creatinine Cancelled 0.85 Est GFR ( Amer) Cancelled > 60 Est GFR (Non-Af Amer) Cancelled > 60 Glucose Cancelled 150 H Calcium Cancelled 10.2 Magnesium Cancelled 1.7 Triglycerides Cancelled 344 H Cholesterol Cancelled 200.31 H LDL Cholesterol Direct Cancelled 81 VLDL Cholesterol Cancelled 68.8 H HDL Cholesterol Cancelled 56 05/07/16 05/07/16 05/08/16 19:00 19:00 01:07 Creatine Kinase 111 108 CK-MB (CK-2) 0.70 Troponin I < 0.012 05/08/16 05/08/16 05/08/16 01:07 05:17 07:38 Creatine Kinase Cancelled CK-MB (CK-2) 0.70 Troponin I < 0.012 < 0.012 05/08/16 05/08/16 05/08/16 07:38 10:05 10:05 Creatine Kinase 137 H CK-MB (CK-2) Cancelled 0.93 Troponin I Cancelled < 0.012 Labs- Last Values WBC 7.0 10^3/uL (4.0-10.5) 05/08/16 07:38 RBC 3.96 10^6/uL (3.72-5.28) 05/08/16 07:38 Hgb 12.5 g/dL (12.0-15.5) 05/08/16 07:38 Hct 37.9 % (36.0-47.0) 05/08/16 07:38 MCV 96 fl (80-97) 05/08/16 07:38 MCH 31.5 pg (27.0-33.4) 05/08/16 07:38 MCHC 32.9 g/dL (32.0-36.0) 05/08/16 07:38 RDW 13.1 % (11.5-14.0) 05/08/16 07:38 Plt Count 287 10^3/uL (150-450) 05/08/16 07:38 Total Counted 100 05/07/16 13:10 Seg Neutrophils % 53.1 % (42-78) 05/08/16 07:38 Seg Neuts % (Manual) 45 % (42-78) 05/07/16 13:10 Lymphocytes % 39.5 % (13-45) 05/08/16 07:38 Lymphocytes % (Manual) 46 % (13-45) H 05/07/16 13:10 Atypical Lymphs % 1 % (0) 05/07/16 13:10 Monocytes % 6.3 % (3-13) 05/08/16 07:38 Monocytes % (Manual) 8 % (3-13) 05/07/16 13:10 Eosinophils % 0.4 % (0-6) 05/08/16 07:38 Eosinophils % (Manual) 0 % (0-6) 05/07/16 13:10 Basophils % 0.7 % (0-2) 05/08/16 07:38 Basophils % (Manual) 0 % (0-2) 05/07/16 13:10 Absolute Neutrophils 3.7 10^3/uL (1.7-8.2) 05/08/16 07:38 Abs Neuts (Manual) 3.6 10^3/uL (1.7-8.2) 05/07/16 13:10 Absolute Lymphocytes 2.8 10^3/uL (0.5-4.7) 05/08/16 07:38 Abs Lymphs (Manual) 3.7 10^3/uL (0.5-4.7) 05/07/16 13:10 Absolute Monocytes 0.4 10^3/uL (0.1-1.4) 05/08/16 07:38 Abs Monocytes (Manual) 0.6 10^3/uL (0.1-1.4) 05/07/16 13:10 Absolute Eosinophils 0.0 10^3/uL (0.0-0.6) 05/08/16 07:38 Absolute Eos (Manual) 0.0 10^3/uL (0.0-0.6) 05/07/16 13:10 Absolute Basophils 0.1 10^3/uL (0.0-0.2) 05/08/16 07:38 Abs Basophils (Manual) 0.0 10^3/uL (0.0-0.2) 05/07/16 13:10 Platelet Comment ADEQUATE 05/07/16 13:10 Polychromasia SLIGHT 05/07/16 13:10 Hypochromasia SLIGHT 05/07/16 13:10 PT 12.0 SEC (11.4-15.4) 05/07/16 13:10 INR 0.86 05/07/16 13:10 Sodium 141.4 mmol/L (137-145) 05/08/16 10:05 Potassium 4.5 mmol/L (3.6-5.0) 05/08/16 10:05 Chloride 103 mmol/L (98-107) 05/08/16 10:05 Carbon Dioxide 25 mmol/L (22-30) 05/08/16 10:05 Anion Gap 13 (5-19) 05/08/16 10:05 BUN 6 mg/dL (7-20) L 05/08/16 10:05 Creatinine 0.85 mg/dL (0.52-1.25) 05/08/16 10:05 Est GFR ( Amer) > 60 (>60) 05/08/16 10:05 Est GFR (Non-Af Amer) > 60 (>60) 05/08/16 10:05 Glucose 150 mg/dL (75-110) H 05/08/16 10:05 POC Glucose 119 mg/dL (70-110) H 05/08/16 05:40 Hemoglobin A1c % 6.2 % (4.7-6.0) H 05/08/16 07:38 Calcium 10.2 mg/dL (8.4-10.2) 05/08/16 10:05 Magnesium 1.7 mg/dL (1.6-2.3) 05/08/16 10:05 Total Bilirubin 0.5 mg/dL (0.2-1.3) 05/07/16 13:10 Direct Bilirubin 0.0 mg/dL (0.0-0.3) 05/07/16 13:10 AST 31 U/L (14-36) 05/07/16 13:10 ALT 28 U/L (9-52) 05/07/16 13:10 Alkaline Phosphatase 105 U/L (38-126) 05/07/16 13:10 Creatine Kinase 137 U/L (30-135) H 05/08/16 10:05 CK-MB (CK-2) 0.93 ng/mL (<4.55) 05/08/16 10:05 Troponin I < 0.012 ng/mL 05/08/16 10:05 NT-Pro-B Natriuret Pep 625 pg/mL (5-900) 05/07/16 13:10 Total Protein 7.1 g/dL (6.3-8.2) 05/07/16 13:10 Albumin 3.9 g/dL (3.5-5.0) 05/07/16 13:10 Triglycerides 344 mg/dL (<150) H 05/08/16 10:05 Cholesterol 200.31 mg/dL (0-200) H 05/08/16 10:05 LDL Cholesterol Direct 81 mg/dL (<100) 05/08/16 10:05 VLDL Cholesterol 68.8 mg/dL (10-31) H 05/08/16 10:05 HDL Cholesterol 56 mg/dL (>40) 05/08/16 10:05 TSH 4.29 uIU/mL (0.47-4.68) 05/07/16 13:10 Free T4 0.64 ng/dL (0.78-2.19) L 05/07/16 13:10 Urine Color STRAW 05/07/16 16:00 Urine Appearance CLEAR 05/07/16 16:00 Urine pH 6.0 (5.0-9.0) 05/07/16 16:00 Ur Specific Chemult 1.002 05/07/16 16:00 Urine Protein NEGATIVE mg/dL (NEGATIVE) 05/07/16 16:00 Urine Glucose (UA) NEGATIVE mg/dL (NEGATIVE) 05/07/16 16:00 Urine Ketones NEGATIVE mg/dL (NEGATIVE) 05/07/16 16:00 Urine Blood NEGATIVE (NEGATIVE) 05/07/16 16:00 Urine Nitrite NEGATIVE (NEGATIVE) 05/07/16 16:00 Urine Bilirubin NEGATIVE (NEGATIVE) 05/07/16 16:00 Urine Urobilinogen NEGATIVE mg/dL (<2.0) 05/07/16 16:00 Ur Leukocyte Esterase NEGATIVE (NEGATIVE) 05/07/16 16:00 Urine WBC (Auto) 1 /HPF 05/07/16 16:00 Urine Bacteria (Auto) TRACE /HPF 05/07/16 16:00 Squamous Epi Cells Auto 3 /HPF 05/07/16 16:00 Urine Ascorbic Acid NEGATIVE (NEGATIVE) 05/07/16 16:00 Urine Opiates Screen NEGATIVE 05/07/16 16:00 Urine Methadone Screen NEGATIVE 05/07/16 16:00 Ur Barbiturates Screen NEGATIVE 05/07/16 16:00 Ur Phencyclidine Scrn NEGATIVE 05/07/16 16:00 Ur Amphetamines Screen NEGATIVE 05/07/16 16:00 U Benzodiazepines Scrn UNCONFIRMED POSITIVE 05/07/16 16:00 Urine Cocaine Screen NEGATIVE 05/07/16 16:00 U Marijuana (THC) Screen NEGATIVE 05/07/16 16:00 Impressions: Chest X-Ray 05/07/16 12:56 IMPRESSION: NO ACUTE RADIOGRAPHIC FINDING IN THE CHEST. Knee X-Ray 05/07/16 12:58 IMPRESSION: NEGATIVE STUDY OF THE RIGHT KNEE. NO EXPLANATION FOR PAIN. Chest/Abdomen CTA 05/07/16 14:17 IMPRESSION: No acute consolidations or pleural effusions are identified. NO PULMONARY EMBOLI. Other findings as noted above Qualifiers PATEINT BEING DISCHARGED WITH ANY OF THE FOLLOWING DIAGNOSIS?: No Plan Discharge Plan: Follow-up with primary care. Follow-up Dr. Sweeney of cardiology. Time Spent: Less than 30 Minutes
[2016-05-08 16:29] VITALS: BP 135/74
[2016-05-08] MEDS ORDERED: METFORMIN HCL 500 MG TABLET PO SCH (18:00)
--- NOTE | 2016-05-08 19:00 | XCELERA REPORT ---
[address] [address] Transthoracic Echocardiogram Report Name: SHOSHANA BOWMAN Age: 50 yrs Gender: Female : 1965 Patient Status: Inpatient Patient Location: [id number]\S\324\[id number]\A Study Date: 05/08/2016 08:56 AM Height: 63 in Weight: 216 lb BSA: 2.0 m2 Procedure: A complete two-dimensional transthoracic echocardiogram was performed (2D, M-mode, spectral and color flow Doppler). The study was technically adequate with some images being suboptimal in quality. Reason For Study: billy SPANGLER Ordering Physician: RANJIT ECKERT Performed By: Sandra Joiner Interpretation Summary The left ventricular ejection fraction is within normal limits. There is borderline concentric left ventricular hypertrophy. The left ventricle is grossly normal size. LV diastolic function could not be adequately assessed. No regional wall motion abnormalities noted. The right ventricular systolic function is normal. The left atrium is mildly dilated. The right atrium is normal. There is a trace amount of mitral regurgitation There is no mitral valve stenosis. No aortic regurgitation is present. There is no aortic valve stenosis There is a trace or physiologic amount of tricuspid regurgitation Right ventricular systolic pressure is at the upper limits of normal The aortic root is not well visualized but is probably normal size. The inferior vena cava appeared normal and decreased > 50% with respiration (RAP 5-10 mmHg) There is no pericardial effusion. MMode/2D Measurements \T\ Calculations RVDd: 3.0 cm LVIDd: 4.5 cm FS: 36.7 % Ao root diam: 2.7 cm IVSd: 1.0 cm LVIDs: 2.9 cm EDV(Teich): 94.1 ml LVPWd: 0.98 cm ESV(Teich): 31.4 ml Ao root area: 5.8 cm2 EF(Teich): 66.7 % LA dimension: 4.0 cm Doppler Measurements \T\ Calculations MV E max sergei: MV P1/2t max segrei: Ao V2 max: LV V1 max P.9 cm/sec 83.9 cm/sec 105.7 cm/sec 3.2 mmHg MV A max sergei: MV P1/2t: 58.4 msec Ao max PG: LV V1 max: 59.2 cm/sec 4.5 mmHg 88.8 cm/sec MV E/A: 1.4 MVA(P1/2t): 3.8 cm2 MV dec slope: 420.5 cm/sec2 MV dec time: 0.20 sec PA V2 max: TR max sergei: 81.9 cm/sec 270.1 cm/sec PA max PG: TR max P.2 mmHg 2.7 mmHg Left Ventricle The left ventricle is grossly normal size. There is borderline concentric left ventricular hypertrophy. The left ventricular ejection fraction is within normal limits. LV diastolic function could not be adequately assessed. No regional wall motion abnormalities noted. Right Ventricle The right ventricle is grossly normal size. The right ventricular free wall is thin. The right ventricular systolic function is normal. Atria The right atrium is normal. The left atrium is mildly dilated. Interarterial septum not well visualized and not well dopplered. Cannot comment on ASD/PFO presence. Mitral Valve The mitral valve is grossly normal. There is no mitral valve stenosis. There is a trace amount of mitral regurgitation. Aortic Valve The aortic valve is grossly normal. There is no aortic valve stenosis. No aortic regurgitation is present. Tricuspid Valve The tricuspid valve is not well visualized, but is grossly normal. There is no tricuspid stenosis. There is a trace or physiologic amount of tricuspid regurgitation. Right ventricular systolic pressure is at the upper limits of normal. Pulmonic Valve The pulmonic valve is not well visualized. Great Vessels The aortic root is not well visualized but is probably normal size. The inferior vena cava appeared normal and decreased > 50% with respiration (RAP 5-10 mmHg). Effusions There is no pericardial effusion. : RANJIT ECKERT > Randell Sweeney
--- NOTE | 2016-05-08 20:09 | PDOC PROGRESS REPORT ---
Subjective Progress Note for:: 05/08/16 Subjective:: Patient seems to be doing better with significant improvement. Pt is denying any chest arm or neck discomfort. Patient denying any PND, orthopnea. Patient denied any sustained palpitations, dizziness, syncope, near syncope. Patient denying any fever chills. Patient denying any other significant discomfort. Patient is maintaining sinus rhythm. Review of systems: Rest review of systems negative. Medications: Medications have been reviewed. Physical Exam Vital Signs: Temp Pulse Resp BP Pulse Ox 98.4 F 91 18 135/74 H 98 05/08/16 16:27 05/08/16 16:27 05/08/16 16:27 05/08/16 16:27 05/08/16 16:27 Intake & Output 05/07/16 05/08/16 05/09/16 06:59 06:59 06:59 Intake Total 139 640 Output Total 400 400 Balance -261 240 Weight 103.4 kg Exam: GENERAL: well-nourished and in no acute distress. Alert and oriented x3 HEAD: Atraumatic, normocephalic. EYES: Pupils equal round and reactive to light, extraocular movements intact, sclera anicteric, conjunctiva are normal. ENT: TMs normal, nares patent, oropharynx clear without exudates. Moist mucous membranes. No oral ulcerations or bleeding gums noted NECK: supple without lymphadenopathy. Trachea is central. No cervical or axillary lymphadenopathy noted. Carotids are 2+, JVD WNL LUNGS: Respiration seems nonlabored, no significant accessory muscle action noted. Breath sounds clear to auscultation bilaterally and equal. No wheezes rales or rhonchi. No significant dullness noted on percussion. CHEST: Palpation of the chest wall shows no significant chest wall tenderness or abnormalities. 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 ABDOMEN: Soft, no significant tenderness appreciated, normoactive bowel sounds. No guarding, no rebound. No rigidity noted . No masses appreciated. EXTREMITIES: Pedal pulses are 1-2+, no calf tenderness noted. No clubbing or cyanosis.trace to 1+ pedal edema noted NEUROLOGICAL: Focused neurological exam showed no significant neurologic deficit. Normal speech, no focal weakness appreciated. PSYCH: Normal mood, normal affect. Judgment and insight within normal limits. SKIN: No significant ecchymosis, rash, ulcerations or signs of pruritus noted. MUSCULOSKELETAL EXAM: No significant joint swelling noted. Results Laboratory Results: 05/08/16 07:38 05/08/16 10:05 05/08/16 05/08/16 05/08/16 07:38 07:38 10:05 WBC 7.0 RBC 3.96 Hgb 12.5 Hct 37.9 MCV 96 MCH 31.5 MCHC 32.9 RDW 13.1 Plt Count 287 Seg Neutrophils % 53.1 Lymphocytes % 39.5 Monocytes % 6.3 Eosinophils % 0.4 Basophils % 0.7 Absolute Neutrophils 3.7 Absolute Lymphocytes 2.8 Absolute Monocytes 0.4 Absolute Eosinophils 0.0 Absolute Basophils 0.1 Sodium Cancelled 141.4 Potassium Cancelled 4.5 Chloride Cancelled 103 Carbon Dioxide Cancelled 25 Anion Gap Cancelled 13 BUN Cancelled 6 L Creatinine Cancelled 0.85 Est GFR ( Amer) Cancelled > 60 Est GFR (Non-Af Amer) Cancelled > 60 Glucose Cancelled 150 H Calcium Cancelled 10.2 Magnesium Cancelled 1.7 Triglycerides Cancelled 344 H Cholesterol Cancelled 200.31 H LDL Cholesterol Direct Cancelled 81 VLDL Cholesterol Cancelled 68.8 H HDL Cholesterol Cancelled 56 05/07/16 05/07/16 05/08/16 19:00 19:00 01:07 Creatine Kinase 111 108 CK-MB (CK-2) 0.70 Troponin I < 0.012 05/08/16 05/08/16 05/08/16 01:07 05:17 07:38 Creatine Kinase Cancelled CK-MB (CK-2) 0.70 Troponin I < 0.012 < 0.012 05/08/16 05/08/16 05/08/16 07:38 10:05 10:05 Creatine Kinase 137 H CK-MB (CK-2) Cancelled 0.93 Troponin I Cancelled < 0.012 EKG Comments: Sinus rhythm with minor nonspecific T wave changes Impressions: Chest X-Ray 05/07/16 12:56 IMPRESSION: NO ACUTE RADIOGRAPHIC FINDING IN THE CHEST. Knee X-Ray 05/07/16 12:58 IMPRESSION: NEGATIVE STUDY OF THE RIGHT KNEE. NO EXPLANATION FOR PAIN. Chest/Abdomen CTA 05/07/16 14:17 IMPRESSION: No acute consolidations or pleural effusions are identified. NO PULMONARY EMBOLI. Other findings as noted above Assessment & Plan - Diagnosis (1) Paroxysmal atrial fibrillation Is this a current diagnosis for this admission?: Yes (2) Obesity Qualifiers: Obesity severity: unspecified obesity severity Is this a current diagnosis for this admission?: Yes (3) Sleep disorder breathing Is this a current diagnosis for this admission?: Yes (4) Chest pain Qualifiers: Chest pain type: unspecified Qualified Code(s): R07.9 - Chest pain, unspecified Is this a current diagnosis for this admission?: Yes (5) Diabetes Qualifiers: Diabetes mellitus type: type 2 Diabetes mellitus complication status: without complication 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 Discussed association of obesity and sleep apnea with atrial fibrillation. Patient's chads score is 1. Discussed anticoagulation. It may be worthwhile to consider her for one month of chronic anticoagulation and then decide whether to continue it or not. This was discussed with hospitalist. Obesity:Discussed adverse effect of overweight/obesity on cardiovascular event rate, sleep apnea, diabetes and hypertension et cetera. Patient has been recommended weight loss. Patient advised in weight loss. In this regard portion control, substitution, calorie restriction and regular exercise plan discussed. Patient informed that I would be happy to help for outpatient management of weight loss. Risk associated with being overweight and obesity discussed. This included both mechanical and metabolic complications. Sleep disorder: This is suspect that based on patient's symptoms of snoring, daytime fatigue and somnolence. Patient also has difficulty falling asleep and staying asleep. Patient has obesity and oropharyngeal exams suggest high probability of underlying sleep apnea syndrome. Have discussed this with the patient. Discussed increased risk of cardiovascular event rate, cerebrovascular accident, cardiac arrhythmias, uncontrolled hypertension etc. as being associated with untreated sleep apnea. Discussed that we'll be happy to schedule this as an outpatient. Patient has been recommended weight loss, sleep hygiene. Chest pain: Patient claims chest pain is improved. This was evaluated with a nuclear stress test. Nuclear stress test was negative for any significant areas of ischemia or any significant areas of scar. The nuclear stress test is felt to be relatively low risk. Patient informed that occasionally single- vessel disease and balanced ischemia could be missed. Patient advised aggressive risk factor modification and medical therapy. Patient informed that further evaluation may become necessary if symptoms worsens or there is a development of new symptoms indicative of angina or angina equivalent symptom. Diabetes:Recommend good control of blood sugar. However should avoid any hypoglycemia. Patient being expertly managed by primary care M.D. - Time Time with patient: Greater than 35 minutes - CODE STATUS was discussed, patient remains full code. Surrogate decision-maker unchanged. Multiple medical problems were addressed.More than 50% of the time spent coordinating care, discussing management plans with involved caregivers. Management plans discussed with involved personnels. Medical decision making was of moderate complexity.Patient was seen multiple times. Total time exceeds 40 minutes. In the morning nuclear stress test procedure, risks benefits, alternatives were discussed. Patient seen during the stress test. Patient also seen after stress test when results were discussed with the patient in detail. Patient's questions were answered. Nuclear stress test results were discussed with the patient. Patient was informed that no definitive evidence of pharmacologic stress-induced ischemia noted. No definite fixed defects were noted. Patient informed that occasionally significant single vessel disease or balanced ischemia could be missed. However based on the current study results, would recommend aggressive risk factor modification and medical therapy. It may also be worthwhile to consider evaluation or empiric management of other causes of chest pain. Should no other cause be found and if persistent in having chest pain, then cardiac catheterization should be considered. Right now, recommendations are for aggressive risk factor modification and medical management.
[2016-05-08] MEDS ORDERED: SIMVASTATIN 40 MG TABLET PO SCH (22:00)
[2016-05-08] MEDS ORDERED: AMITRIPTYLINE HCL 50 MG TABLET PO SCH (22:00)
[2016-05-08] MEDS ORDERED: ZOLPIDEM TARTRATE 5 MG TABLET PO SCH (22:00)
[2016-05-08] MEDS ORDERED: DIPHENHYDRAMINE HCL 25 MG CAPSULE PO SCH (22:00)
[2016-05-08] MEDS ORDERED: FLUTICASONE/SALMETEROL DISKUS 250-50 MCG/DOSE IH SCH (22:00)
[2016-05-08] MEDS ORDERED: (PENDING PHARMACY ID) (Zolpidem Tartrate [Ambien] 10 MG) PO SCH (22:00)
[2016-05-09] MEDS ORDERED: LEVOTHYROXINE SODIUM 0.05 MG TABLET PO SCH (06:00)
[2016-05-09] MEDS ORDERED: LANSOPRAZOLE 30 MG TAB.RAP.DR PO SCH (06:00)
[2016-05-09] MEDS ORDERED: (PENDING PHARMACY ID) (Desvenlafaxine Succinate 100 MG) PO SCH (10:00)
== END 2016-05-08 18:00 | disposition home or self-care (01) | DRG 309 ==
LOC: ER 12:35 → UNDOADMIN 16:50 → EH 16:50 → 3W 20:22
PROVIDERS: ADMIT Family Medicine; ATTEND Family Medicine
DX: I48.0 Paroxysmal atrial fibrillation (principal); Z68.41 Body mass index [BMI] 40.0-44.9, adult; E83.42 Hypomagnesemia; E03.9 Hypothyroidism, unspecified; R07.9 Chest pain, unspecified; E78.5 Hyperlipidemia, unspecified; E11.9 Type 2 diabetes mellitus without complications; K21.9 Gastro-esophageal reflux disease without esophagitis; F41.8 Other specified anxiety disorders; F20.9 Schizophrenia, unspecified; M25.561 Pain in right knee; G47.30 Sleep apnea, unspecified; E66.9 Obesity, unspecified; Z79.84 Long term (current) use of oral hypoglycemic drugs; Z79.51 Long term (current) use of inhaled steroids; Z79.899 Other long term (current) drug therapy; Z88.6 Allergy status to analgesic agent; Z88.0 Allergy status to penicillin; Z88.2 Allergy status to sulfonamides
CPT/HCPCS: 36415; 71010; 71275; 78452; 80048; 80053; 80061; 80307; 81001; 82550; 82553; 82962; 83036; 83735; 83880; 84439; 84443; 84484; 85025; 85610; 93005; 93010; 93017; 93306; 96365; 96366; 99291; A9500; J1650; J2785; J3475; J3490; J7030; Q9969

== ENCOUNTER 2016-07-03 18:57 | Emergency (ER) | payer MEDICAID ==
--- NOTE | 2016-07-03 21:58 | ER Document Report ---
ED Eye Complaint - General Chief Complaint: Eye Problem Stated Complaint: LEFT EYE PROBLEM Mode of Arrival: Ambulatory Information source: Patient Notes: 50 y/o F presents to ED c/o left eye redness, crusting with yellow-whitish drainage over the last 2 days. Pt reports had symptoms in right eye earlier this week and now has it in left eye. Denies fever, eye injury or foreign body, vision changes, or eye pain. TRAVEL OUTSIDE OF THE [place] IN LAST 30 DAYS: No - HPI Eye location: Left Injury: No Quality of pain: No pain Severity: Mild Contact lenses worn: No Associated symptoms: Redness, Matting. denies: Pain, Photophobia, Eyelid swelling, Orbital swelling, Foreign body sensation, Blurred vision, Double vision, Decreased vision, Loss of vision - Related Data Allergies/Adverse Reactions: tramadol Allergy (Intermediate, Verified 07/03/16 20:26) AMS Penicillins Allergy (Mild, Verified 07/03/16 20:26) rash Sulfa (Sulfonamide Antibiotics) Allergy (Mild, Verified 07/03/16 20:26) rash aspirin Allergy (Verified 07/03/16 20:26) Past Medical History - General Information source: Patient - Social History Smoking Status: Never Smoker Frequency of alcohol use: None Drug Abuse: None Lives with: Family Family History: CAD, CVA, DM, Hyperlipidemia, Hypertension, Malignancy, Thyroid Disfunction, Other - asthma Patient has suicidal ideation: No Patient has homicidal ideation: No - Past Medical History Cardiac Medical History: Reports: Hx Hypercholesterolemia Denies: Hx Coronary Artery Disease, Hx Heart Attack, Hx Hypertension Pulmonary Medical History: Reports: Hx Asthma, Hx Bronchitis Denies: Hx COPD, Hx Pneumonia Neurological Medical History: Denies: Hx Cerebrovascular Accident, Hx Seizures Endocrine Medical History: Reports: Hx Diabetes Mellitus Type 2 - borderline, Hx Hypothyroidism Renal/ Medical History: Denies: Hx Peritoneal Dialysis GI Medical History: Reports: Hx Gastritis, Hx Gastroesophageal Reflux Disease Musculoskeltal Medical History: Reports Hx Arthritis, Reports Hx Musculoskeletal Trauma Psychiatric Medical History: Reports: Hx Anxiety, Hx Depression - anxiety, Hx Schizophrenia Past Surgical History: Reports: Hx Cholecystectomy, Hx Tubal Ligation. Denies: Hx Hysterectomy - Immunizations Immunizations up to date: Yes Hx Diphtheria, Pertussis, Tetanus Vaccination: Yes Review of Systems - Review of Systems Constitutional: No symptoms reported EENT: See HPI Cardiovascular: No symptoms reported Respiratory: No symptoms reported Gastrointestinal: No symptoms reported Genitourinary: No symptoms reported Female Genitourinary: No symptoms reported Musculoskeletal: No symptoms reported Skin: No symptoms reported Hematologic/Lymphatic: No symptoms reported Neurological/Psychological: No symptoms reported -: Yes All other systems reviewed and negative Physical Exam - Vital signs Vitals: Temp Pulse Resp BP Pulse Ox 97.9 F 90 20 127/74 H 96 07/03/16 20:21 07/03/16 20:21 07/03/16 20:21 07/03/16 20:21 07/03/16 20:21 Interpretation: Normal - General General appearance: Appears well, Alert In distress: None - HEENT Head: Normocephalic, Atraumatic. No: Worrell's sign, Ecchymosis, Open wounds Eyes: Normal. No: Periorbital ecchymosis, Periorbital edema Conjunctiva: Injected - left. No: Purulent discharge Cornea: Normal. No: Corneal abrasion, Corneal ulcer, Dendrite, Embedded foreign body, Flourescein stain uptake, Opacified, Superficial foreign body Extraocular movements intact: Yes Eyelashes: Normal Pupils: PERRL Lids everted for exam: bilateral: Normal Anterior chamber: Normal Fundascopic: Normal Nerve palsy: No Visual metzger normal: Yes Ears: Normal External canal: Normal Tympanic membrane: Normal Sinus: Normal Nasal: Normal Mouth/Lips: Normal Mucous membranes: Normal, Moist Pharynx: Normal. No: Blood in hypopharynx, Erythema, Exudate, Peritonsillar abscess, Post nasal drainage, Retropharyngeal abscess, Tonsillar hypertrophy, Uvular edema, Potential airway comprom., Other Neck: Normal. No: Anterior cervical chain, Posterior cervical chain, Lymphadenopathy, Meningismus, Subcutaneous emphysema - Respiratory Respiratory status: No respiratory distress Chest status: Nontender Breath sounds: Normal Chest palpation: Normal - Cardiovascular Rhythm: Regular Heart sounds: Normal auscultation Murmur: No - Neurological Neuro grossly intact: Yes Cognition: Normal Orientation: AAOx4 [place]cca Coma Scale Eye Opening: Spontaneous [place] Coma Scale Verbal: Oriented [place] Coma Scale Motor: Obeys Commands [place] Coma Scale Total: 15 Speech: Normal Motor strength normal: LUE, RUE, LLE, RLE Sensory: Normal - Skin Skin Temperature: Warm Skin Moisture: Dry Skin Color: Normal Course - Re-evaluation Re-evalutation: 07/03/16 22:05 Patient hemodynamically stable, in no distress, afebrile. Physical exam unremarkable with findings suggestive of mild conjunctivitis at this time. Patient appears stable for discharge and agrees with home care, follow-up, and ED return precautions. - Vital Signs Vital signs: Temp Pulse Resp BP Pulse Ox 97.6 F 83 18 112/62 96 07/03/16 23:25 07/03/16 23:25 07/03/16 23:25 07/03/16 23:25 07/03/16 23:25 Discharge - Discharge Clinical Impression: Conjunctivitis Qualifiers: Conjunctivitis type: unspecified Laterality: left Qualified Code(s): H10.9 - Unspecified conjunctivitis Condition: Stable Disposition: HOME, SELF-CARE Additional Instructions: CONJUNCTIVITIS: You have an infection in your eye, commonly known as "pink eye." Conjunctivitis causes redness, mild discomfort, itching, and mattering on the eyelids. It is very contagious, so you must be careful to wash your hands after touching your face so you don't pass the infection on to others. Conjunctivitis is caused by both viruses and bacteria. It usually responds quickly to treatment with antibiotic drops. These should be placed in the eye as prescribed (usually every three to four hours while you're awake). If you wear contact lenses, don't put them in your eyes until the infection is cleared and you are no longer using the drops (unless your doctor advises you otherwise). Should you develop increasing eye pain, severe swelling, decreased vision, or fail to improve as expected, please return for re-examination. EYEDROP USE: Eyedrops are most easily applied by pulling down on the cheek just below the lower eyelid. The lower lid will pop out to form a pouch into which you can drop the medicine. A small brief sting is not unusual, especially if the eye is reddened and irritated already. Use the drops exactly as recommended. You should see the doctor at once if there is a decrease in vision, swelling of the eye, or an increase in discomfort. ANTIBIOTIC THERAPY: You have been given an antibiotic prescription. It's important that you take all the medication, unless instructed otherwise by your physician. Failure to complete the entire course can result in relapse of your condition. Common side effects of antibiotics include nausea, intestinal cramping, or diarrhea. Women may develop vaginal yeast infections, and babies can get yeast (thrush) in the mouth following the use of antibiotics. Contact your physician if you develop significant side effects from this medication. Allergy to this antibiotic can result in hives, wheezing, faintness, or itching. If symptoms of allergy occur, stop the medication and call the doctor. FOLLOW-UP CARE: Follow-up with your primary care provider and Ophthalmology this week. Return to the Emergency Department for any worsening symptoms or concerns. Prescriptions: Polymyxin B Sulf/Trimethoprim [Polytrim Eye Drops] 1 drop OS QID 7 Days Referrals: GEORGE SORTO MD [Primary Care Provider] - Follow up tomorrow SONDRA HORNE MD [ACTIVE STAFF] - Follow up tomorrow
[2016-07-04 01:04] VITALS: BP 112/62
== END 2016-07-03 23:50 | disposition home or self-care (01) ==
LOC: ER 18:57
DX: H10.9 Unspecified conjunctivitis (principal); J45.909 Unspecified asthma, uncomplicated; Z88.5 Allergy status to narcotic agent; Z88.0 Allergy status to penicillin; Z88.2 Allergy status to sulfonamides; Z88.6 Allergy status to analgesic agent
CPT/HCPCS: 99282

== ENCOUNTER 2016-09-06 16:12 | Emergency (ER) | payer MEDICAID ==
--- NOTE | 2016-09-06 16:39 | ER Document Report ---
ED Medical Screen (RME) - General Chief Complaint: Diarrhea Stated Complaint: DIARHHEA,LIGHTHEADED Time Seen by Provider: 09/06/16 16:30 Mode of Arrival: Wheelchair Information source: Patient Notes: This is a 51-year-old female with multiple medical problems (obesity, paroxysmal afib on Eliquis, hyperlipidemia, DM, GERD, schizoaffective DO) who presents with diarrhea for 2 days and also difficulty urinating. She states that she is not urinating very much in the past 24 hours. No vomiting but she has had nausea. No fevers or chills. She does report some upper abdominal discomfort but no chest pain. Of note she states that her primary care physician increase her Lasix to 80 mg once a day just a few days ago. Denies recent antibiotics. I have greeted and performed a rapid initial assessment of this patient. A comprehensive ED assessment and evaluation of the patient, analysis of test results and completion of the medical decision making process will be conducted by additional ED providers. TRAVEL OUTSIDE OF THE [place] IN LAST 30 DAYS: No - Related Data Allergies/Adverse Reactions: tramadol Allergy (Intermediate, Verified 09/06/16 16:17) AMS Penicillins Allergy (Mild, Verified 09/06/16 16:17) rash Sulfa (Sulfonamide Antibiotics) Allergy (Mild, Verified 09/06/16 16:17) rash aspirin Allergy (Verified 09/06/16 16:17) Past Medical History - Social History Chew tobacco use (# tins/day): No Frequency of alcohol use: None Drug Abuse: None - Past Medical History Cardiac Medical History: Reports: Hx Atrial Fibrillation, Hx Hypercholesterolemia Denies: Hx Coronary Artery Disease, Hx Heart Attack, Hx Hypertension Pulmonary Medical History: Reports: Hx Asthma, Hx Bronchitis Denies: Hx COPD, Hx Pneumonia Neurological Medical History: Denies: Hx Cerebrovascular Accident, Hx Seizures Endocrine Medical History: Reports: Hx Diabetes Mellitus Type 2 - borderline, Hx Hypothyroidism Renal/ Medical History: Denies: Hx Peritoneal Dialysis GI Medical History: Reports: Hx Gastritis, Hx Gastroesophageal Reflux Disease Musculoskeltal Medical History: Reports Hx Arthritis, Reports Hx Musculoskeletal Trauma Psychiatric Medical History: Reports: Hx Anxiety, Hx Depression - anxiety, Hx Schizophrenia Past Surgical History: Reports: Hx Cholecystectomy, Hx Tubal Ligation. Denies: Hx Hysterectomy - Immunizations Immunizations up to date: Yes Hx Diphtheria, Pertussis, Tetanus Vaccination: Yes Physical Exam - Vital signs Vitals: Temp Pulse Resp BP Pulse Ox 97.9 F 81 22 H 132/99 H 96 09/06/16 16:17 09/06/16 16:17 09/06/16 16:17 09/06/16 16:17 09/06/16 16:17 Course - Vital Signs Vital signs: Temp Pulse Resp BP Pulse Ox 97.9 F 81 22 H 132/99 H 96 09/06/16 16:17 09/06/16 16:17 09/06/16 16:17 09/06/16 16:17 09/06/16 16:17
[2016-09-06 17:16] LABS: ABSOLUTE BASOPHILS # (AUTO) 0.1 10^3/uL (0.0-0.2); ABSOLUTE LYMPHOCYTES (AUTO) 2.4 10^3/uL (0.5-4.7); ABSOLUTE MONOCYTES (AUTO) 0.6 10^3/uL (0.1-1.4); ABSOLUTE NEUT (AUTO) 5.9 10^3/uL (1.7-8.2); BASOPHILS % (AUTO) 0.9 % (0-2); EOSINOPHILS % (AUTO) 0.1 % (0-6); HEMATOCRIT 40.3 % (36.0-47.0); HEMOGLOBIN 13.4 g/dL (12.0-15.5); HGB HCT DIFFERENCE -0.1; LYMPHOCYTES % (AUTO) 26.8 % (13-45); MEAN CORPUSCULAR HEMOGLOBIN 31.3 pg (27.0-33.4); MEAN CORPUSCULAR HGB CONC 33.2 g/dL (32.0-36.0); MEAN CORPUSCULAR VOLUME 94 fl (80-97); MONOCYTES % (AUTO) 6.5 % (3-13); RED BLOOD COUNT 4.28 10^6/uL (3.72-5.28); RED CELL DISTRIBUTION WIDTH 13.4 % (11.5-14.0); SEGMENTED NEUTROPHILS % (AUTO) 65.7 % (42-78); WHITE BLOOD COUNT 8.9 10^3/uL (4.0-10.5)
--- NOTE | 2016-09-06 17:20 | ER Document Report ---
ED GI/ - General Mode of Arrival: Wheelchair Information source: Patient TRAVEL OUTSIDE OF THE [place] IN LAST 30 DAYS: No - HPI Patient complains to provider of: Diarrhea Associated symptoms: Other - See above <LEDA MOORE - Last Filed: 09/06/16 20:27> <IGLESIA ALVAREZ - Last Filed: 09/06/16 22:08> - General Chief Complaint: Diarrhea Stated Complaint: DIARHHEA,LIGHTHEADED Time Seen by Provider: 09/06/16 16:30 Notes: Patient is a 51 year old female, with a past medical history including diabetes and cholecystectomy, who presents to the emergency department complaining of diarrhea onset yesterday. Patient states that the diarrhea is green colored and has not been worsening or getting better. Patient also complains of upper abdominal pain. Patient denies vomiting, bad food, recent travel, recent antibiotic use, or eating fatty foods before the diarrhea began. Patient states she did eat pizza after it started. Patient had an endoscopy performed somewhat recently and was told she had diverticulitis. (LEDA MOORE) - Related Data Allergies/Adverse Reactions: tramadol Allergy (Intermediate, Verified 09/06/16 16:17) AMS Penicillins Allergy (Mild, Verified 09/06/16 16:17) rash Sulfa (Sulfonamide Antibiotics) Allergy (Mild, Verified 09/06/16 16:17) rash aspirin Allergy (Verified 09/06/16 16:17) Past Medical History - General Information source: Patient - Social History Smoking Status: Never Smoker Chew tobacco use (# tins/day): No Frequency of alcohol use: None Drug Abuse: None Family History: Reviewed & Not Pertinent, CAD, CVA, DM, Hyperlipidemia, Hypertension, Malignancy, Thyroid Disfunction, Other - asthma Patient has suicidal ideation: No Patient has homicidal ideation: No - Past Medical History Cardiac Medical History: Reports: Hx Atrial Fibrillation, Hx Hypercholesterolemia Pulmonary Medical History: Reports: Hx Asthma, Hx Bronchitis Endocrine Medical History: Reports: Hx Diabetes Mellitus Type 2 - borderline, Hx Hypothyroidism GI Medical History: Reports: Hx Gastritis, Hx Gastroesophageal Reflux Disease Musculoskeltal Medical History: Reports Hx Arthritis, Reports Hx Musculoskeletal Trauma Psychiatric Medical History: Reports: Hx Anxiety, Hx Depression - anxiety, Hx Schizophrenia Past Surgical History: Reports: Hx Cholecystectomy, Hx Tubal Ligation - Immunizations Immunizations up to date: Yes Hx Diphtheria, Pertussis, Tetanus Vaccination: Yes <TERESALEDA - Last Filed: 09/06/16 20:27> Review of Systems - Review of Systems Constitutional: No symptoms reported EENT: No symptoms reported Cardiovascular: No symptoms reported Respiratory: No symptoms reported Gastrointestinal: See HPI, Abdominal pain, Diarrhea. denies: Vomiting Genitourinary: No symptoms reported Female Genitourinary: No symptoms reported Musculoskeletal: No symptoms reported Skin: No symptoms reported Hematologic/Lymphatic: No symptoms reported Neurological/Psychological: No symptoms reported -: Yes All other systems reviewed and negative <MOORELEDA - Last Filed: 09/06/16 20:27> Physical Exam - Vital signs Interpretation: Normal - General General appearance: Alert In distress: None - appears uncomfortable - HEENT Head: Normocephalic, Atraumatic Eyes: Normal Pupils: PERRL - Respiratory Respiratory status: No respiratory distress Chest status: Nontender Breath sounds: Normal Chest palpation: Normal - Cardiovascular Rhythm: Regular Heart sounds: Normal auscultation Murmur: No - Abdominal Inspection: Normal Distension: Distended - Mild Bowel sounds: Normal Tenderness: Tender - Bilateral upper quadrant tenderness to palpation, Guarding. No: Rebound Organomegaly: No organomegaly - Back Back: Normal, Nontender - Extremities General upper extremity: Normal inspection, Nontender, Normal color, Normal ROM , Normal temperature General lower extremity: Normal inspection, Nontender, Normal color, Normal ROM , Normal temperature, Normal weight bearing. No: Ysabel's sign - Neurological Neuro grossly intact: Yes Cognition: Normal Orientation: AAOx4 [place] Coma Scale Eye Opening: Spontaneous [place] Coma Scale Verbal: Oriented [place] Coma Scale Motor: Obeys Commands Becca Coma Scale Total: 15 Speech: Normal Motor strength normal: LUE, RUE, LLE, RLE Sensory: Normal - Psychological Associated symptoms: Normal affect, Normal mood - Skin Skin Temperature: Warm Skin Moisture: Dry Skin Color: Normal <IGLESIA ALVAREZ - Last Filed: 09/06/16 22:08> - Vital signs Vitals: Temp Pulse Resp BP Pulse Ox 97.9 F 81 22 H 132/99 H 96 09/06/16 16:17 09/06/16 16:17 09/06/16 16:17 09/06/16 16:17 09/06/16 16:17 Course - Laboratory Result Diagrams: 09/06/16 16:40 09/06/16 16:40 <LEDA MOORE - Last Filed: 09/06/16 20:27> - Laboratory Result Diagrams: 09/06/16 16:40 09/06/16 16:40 - Diagnostic Test Radiology reviewed: Reports reviewed <IGLESIA ALVAREZ - Last Filed: 09/06/16 22:08> - Re-evaluation Re-evalutation: 09/06/16 18:35 No acute findings on blood work or CT. Patient is taking p.o. and is feeling better. She will be discharged home is to follow-up with her doctor. Stable for discharge. No further diarrhea in the emergency department. (IGLESIA ALVAREZ) - Vital Signs Vital signs: Temp Pulse Resp BP Pulse Ox 97.9 F 85 20 120/75 95 09/06/16 16:17 09/06/16 21:38 09/06/16 21:38 09/06/16 21:38 09/06/16 21:38 - Laboratory Laboratory results interpreted by me: 09/06/16 09/06/16 16:40 16:50 Chloride 97 L Glucose 203 H AST 39 H Alkaline Phosphatase 130 H Urine Blood SMALL H Discharge <LEDA MOORE - Last Filed: 09/06/16 20:27> <IGLESIA ALVAREZ - Last Filed: 09/06/16 22:08> - Discharge Clinical Impression: Diarrhea Qualifiers: Diarrhea type: unspecified type Qualified Code(s): R19.7 - Diarrhea, unspecified Abdominal pain Qualifiers: Abdominal location: unspecified location Qualified Code(s): R10.9 - Unspecified abdominal pain Condition: Stable Disposition: HOME, SELF-CARE Instructions: Abdominal Pain ([facility]), Diarrhea, Nonspecific ([facility]) Scribe Attestation: 09/06/16 22:08 I personally performed the services described in the documentation, reviewed and edited the documentation which was dictated to the scribe in my presence, and it accurately records my words and actions. (IGLESIA ALVAREZ) Scribe Documentation - Scribe Written by Scribe:: ani Beltran, 09/06/162026 acting as scribe for :: Elvira <LEDA MOORE - Last Filed: 09/06/16 20:27>
[2016-09-06] MEDS ORDERED: MORPHINE SULFATE 10 MG/ML INJ IV ONE (17:21)
[2016-09-06] MEDS ORDERED: NORMAL SALINE 1000 ML 1,000 ML IV ONE (17:21)
[2016-09-06] MEDS ORDERED: ONDANSETRON HCL INJ/PF 4 MG/2 ML SDV IV ONE (17:21)
[2016-09-06 17:26] LABS: ALANINE AMINOTRANSFERASE 38 U/L (9-52); ALBUMIN 4.4 g/dL (3.5-5.0); ALKALINE PHOSPHATASE 130 U/L (38-126); ANION GAP 17 (5-19); ASPARTATE AMINO TRANSFERASE 39 U/L (14-36); BILIRUBIN,DIRECT 0.3 mg/dL (0.0-0.4); BILIRUBIN,TOTAL 0.6 mg/dL (0.2-1.3); BLOOD UREA NITROGEN 8 mg/dL (7-20); CALCIUM 9.9 mg/dL (8.4-10.2); CARBON DIOXIDE 27 mmol/L (22-30); CHLORIDE 97 mmol/L (98-107); CREATININE RESULT 0.76 mg/dL (0.52-1.25); GLUCOSE 203 mg/dL (75-110); POTASSIUM 3.9 mmol/L (3.6-5.0); SODIUM 140.6 mmol/L (137-145); TOTAL PROTEIN 7.3 g/dL (6.3-8.2)
[2016-09-06 18:26] LABS: APPEARANCE,URINE SLIGHTLY-CLOUDY; BILIRUBIN,URINE NEGATIVE (NEGATIVE); GLUCOSE, URINE NEGATIVE (NEGATIVE); KETONES,URINE NEGATIVE (NEGATIVE); LEUKOCYTE ESTERASE,URINE NEGATIVE (NEGATIVE); NITRITE,URINE NEGATIVE (NEGATIVE); PROTEIN,URINE NEGATIVE (NEGATIVE); URINE SPECIFIC GRAVITY 1.004; UROBILINOGEN,URINE NEGATIVE mg/dL (<2.0)
--- NOTE | 2016-09-06 20:27 | RADIOLOGY REPORT (SQ) ---
EXAM DESCRIPTION: CT ABD/PELVIS WITH IV ORAL COMPLETED DATE/TIME: 09/06/2016 8:08 pm REASON FOR STUDY: abd pain, nausea, diarrhea COMPARISON: None. TECHNIQUE: CT scan of the abdomen and pelvis performed using helical scanning technique with dynamic intravenous contrast injection. No oral contrast. Images reviewed with lung, soft tissue, and bone windows. Reconstructed coronal and sagittal MPR images reviewed. Delayed images for evaluation of the urinary system also acquired. All images stored on PACS. All CT scanners at this facility use dose modulation, iterative reconstruction, and/or weight based d osing when appropriate to reduce radiation dose to as low as reasonably achievable (ALARA). [facility]: Dose Right [facility]: CareDose [facility]: Dose Right [facility]: Teradose 4D [facility]: Algolux CONTRAST TYPE AND DOSE: 100 mL Isovue 370- low osmolar. RENAL FUNCTION: BUN 8; creatinine 0.76 RADIATION DOSE: 41.00mGy. LIMITATIONS: None. FINDINGS: LOWER CHEST: No significant findings. No nodules or infiltrates. LIVER: Normal size and attenuation of the liver. Trace prominence of the central intrahepatic biliar y system. SPLEEN: Normal size. No focal lesions. PANCREAS: No masses. No significant calcifications. No adjacent inflammation or peripancreatic fluid collections. Pancreatic duct not dilated. GALLBLADDER: Status postcholecystectomy. The common bile duct is prominent, measuring on the order o f 8 to 9 mm; this is not an unexpected finding in the setting of cholecystectomy. ADRENAL GLANDS: No significant masses or asymmetry. RIGHT KIDNEY AND URETER: The right kidney is located within the pelvis ; the right renal artery arise s from the aortic bifurcation. No solid masses. No significant calcifications. No hydronephrosis or hydroureter. LEFT KIDNEY AND URETER: No solid masses. No significant calcifications. No hydronephrosis or hydr oureter. AORTA AND VESSELS: No aneurysm. No dissection. Renal arteries, SMA, celiac without stenosis. RETROPERITONEUM: No retroperitoneal adenopathy, hemorrhage or masses. BOWEL AND PERITONEAL CAVITY: The colon is largely decompressed; the appearance of circumferential mur al thickening is favored to be on the basis of nondistention. Enteric contrast is seen to the level of the terminal ileum. No masses or inflammatory changes. No free fluid or peritoneal masses. APPENDIX: Not visualized. PELVIS: No mass or free fluid. Normal bladder. ABDOMINAL WALL: No masses. No hernias. BONES: No significant or acute findings. OTHER: No other significant finding. IMPRESSION: 1. No overt infectious/ inflammatory abnormalities identified. 2. Incidental finding of renal ectopia. The right kidney is located within the bony pelvis, with th e right renal artery arising from the aortic bifurcation. 3. Status post cholecystectomy, noting mild central intrahepatic biliary dilatation and prominence o f the common bile duct. TECHNICAL DOCUMENTATION: JOB ID: [id number] Quality ID # [id number]: Final reports with documentation of one or more dose reduction techniques (e.g., Au tomated exposure control, adjustment of the mA and/or kV according to patient size, use of iterative reconstruction technique) 2010 [employer]- All Rights Reserved
[2016-09-06] MEDS ORDERED: ONDANSETRON ODT 4 MG TAB (6 TAB/DSPK) PO PRN (20:56)
[2016-09-06 21:40] VITALS: BP 120/75
== END 2016-09-06 21:38 | disposition home or self-care (01) ==
LOC: ER 16:12
DX: R19.7 Diarrhea, unspecified (principal); R19.5 Other fecal abnormalities; R10.10 Upper abdominal pain, unspecified; R14.0 Abdominal distension (gaseous); Z90.49 Acquired absence of other specified parts of digestive tract; Z87.19 Personal history of other diseases of the digestive system; Z98.890 Other specified postprocedural states; Z88.5 Allergy status to narcotic agent; Z88.0 Allergy status to penicillin; Z88.2 Allergy status to sulfonamides; Z88.6 Allergy status to analgesic agent; J45.909 Unspecified asthma, uncomplicated; Z98.51 Tubal ligation status
CPT/HCPCS: 99284; 96361; 96374; 96375; 36415; 85025; 80053; 81001; 74177; J2270; J2405; J7030

== ENCOUNTER 2017-01-17 14:44 | Emergency (ER) | payer SELFPAY ==
[2017-01-17 14:50] VITALS: BP 129/82
[2017-01-17] MEDS ORDERED: ONDANSETRON 4 MG TAB.RAPDIS PO ONE ×2 (15:24→16:42)
--- NOTE | 2017-01-17 15:31 | ER Document Report ---
ED Medical Screen (RME) - General Mode of Arrival: Ambulatory Information source: Patient TRAVEL OUTSIDE OF THE [place] IN LAST 30 DAYS: No - General Chief Complaint: Abdominal Pain Stated Complaint: ABDOMINAL PAIN Time Seen by Provider: 01/17/17 15:19 Notes: Patient is a 51-year-old female presented emergency department for abdominal pain. Patient's pain is still present for the past 2-3 days and is located in her left upper and lower quadrants. Patient states that she is also has some nausea and green diarrhea. Patient denies any vomiting, fever, hematemesis, or bloody stools. Patient states she previously had this abdominal pain one time in the past and received CT scan; this was 3-5 months ago. Patient has a history of a tubal ligation and a cholecystectomy. Patient denies any history of diverticulitis. (SEPIDEH HERRMANN) - Related Data Allergies/Adverse Reactions: tramadol Allergy (Intermediate, Verified 01/17/17 14:51) AMS Penicillins Allergy (Mild, Verified 01/17/17 14:51) rash Sulfa (Sulfonamide Antibiotics) Allergy (Mild, Verified 01/17/17 14:51) rash aspirin Allergy (Verified 01/17/17 14:51) Past Medical History - Social History Chew tobacco use (# tins/day): No Frequency of alcohol use: None Drug Abuse: None - Past Medical History Cardiac Medical History: Reports: Hx Atrial Fibrillation, Hx Hypercholesterolemia Denies: Hx Coronary Artery Disease, Hx Heart Attack, Hx Hypertension Pulmonary Medical History: Reports: Hx Asthma, Hx Bronchitis Denies: Hx COPD, Hx Pneumonia Neurological Medical History: Denies: Hx Cerebrovascular Accident, Hx Seizures Endocrine Medical History: Reports: Hx Diabetes Mellitus Type 2 - borderline, Hx Hypothyroidism Renal/ Medical History: Denies: Hx Peritoneal Dialysis GI Medical History: Reports: Hx Gastritis, Hx Gastroesophageal Reflux Disease Musculoskeltal Medical History: Reports Hx Arthritis, Reports Hx Musculoskeletal Trauma Psychiatric Medical History: Reports: Hx Anxiety, Hx Depression - anxiety, Hx Schizophrenia Past Surgical History: Reports: Hx Cholecystectomy, Hx Tubal Ligation. Denies: Hx Hysterectomy - Immunizations Immunizations up to date: Yes Hx Diphtheria, Pertussis, Tetanus Vaccination: Yes - 2012 Physical Exam - Vital signs Vitals: Temp Pulse Resp BP Pulse Ox 97.7 F 97 16 129/82 H 96 01/17/17 14:49 01/17/17 14:49 10/21/17 14:49 01/17/17 14:49 01/17/17 14:49 - Notes Notes: GENERAL: Alert, interacts well. No acute distress. LUNGS: Clear to auscultation bilaterally, no wheezes, rales, or rhonchi. No respiratory distress. HEART: Regular rate and rhythm. No murmurs, gallops, or rubs. ABDOMEN: Soft, tenderness to palpation over the epigastric, LLQ, and LUQ; pain is mostly located in the LUQ. Non-distended. Bowel sounds present in all 4 quadrants. (SEPIDEH HERRMANN) - Vital Signs Vital signs: Temp Pulse Resp BP Pulse Ox 97.7 F 97 16 129/82 H 96 01/17/17 14:49 01/17/17 14:49 01/17/17 14:49 01/17/17 14:49 01/17/17 14:49 Scribe Documentation - Scribe Written by Scribe:: Sepideh Herrmann, Mann, 01/17/2017 1530 acting as scribe for :: Jocelyn
[2017-01-17 16:03] LABS: ABSOLUTE BASOPHILS # (AUTO) 0.1 10^3/uL (0.0-0.2); ABSOLUTE LYMPHOCYTES (AUTO) 2.4 10^3/uL (0.5-4.7); ABSOLUTE MONOCYTES (AUTO) 0.5 10^3/uL (0.1-1.4); ABSOLUTE NEUT (AUTO) 5.1 10^3/uL (1.7-8.2); BASOPHILS % (AUTO) 0.8 % (0-2); EOSINOPHILS % (AUTO) 0.1 % (0-6); HEMATOCRIT 38.2 % (36.0-47.0); HEMOGLOBIN 13.2 g/dL (12.0-15.5); HGB HCT DIFFERENCE 1.4; LYMPHOCYTES % (AUTO) 29.4 % (13-45); MEAN CORPUSCULAR HEMOGLOBIN 31.7 pg (27.0-33.4); MEAN CORPUSCULAR HGB CONC 34.4 g/dL (32.0-36.0); MEAN CORPUSCULAR VOLUME 92 fl (80-97); MONOCYTES % (AUTO) 6.4 % (3-13); RED BLOOD COUNT 4.15 10^6/uL (3.72-5.28); RED CELL DISTRIBUTION WIDTH 13.3 % (11.5-14.0); SEGMENTED NEUTROPHILS % (AUTO) 63.3 % (42-78)
[2017-01-17 16:15] LABS: APPEARANCE,URINE SLIGHTLY-CLOUDY; BILIRUBIN,URINE NEGATIVE (NEGATIVE); GLUCOSE, URINE NEGATIVE (NEGATIVE); KETONES,URINE NEGATIVE (NEGATIVE); LEUKOCYTE ESTERASE,URINE MODERATE (NEGATIVE); NITRITE,URINE NEGATIVE (NEGATIVE); PROTEIN,URINE NEGATIVE (NEGATIVE); URINE SPECIFIC GRAVITY 1.013; UROBILINOGEN,URINE NEGATIVE mg/dL (<2.0)
[2017-01-17 16:17] LABS: ALANINE AMINOTRANSFERASE 44 U/L (9-52); ALBUMIN 4.8 g/dL (3.5-5.0); ALKALINE PHOSPHATASE 151 U/L (38-126); ANION GAP 18 (5-19); ASPARTATE AMINO TRANSFERASE 41 U/L (14-36); BILIRUBIN,DIRECT 0.4 mg/dL (0.0-0.4); BILIRUBIN,TOTAL 0.8 mg/dL (0.2-1.3); BLOOD UREA NITROGEN 15 mg/dL (7-20); CALCIUM 9.7 mg/dL (8.4-10.2); CARBON DIOXIDE 28 mmol/L (22-30); CHLORIDE 97 mmol/L (98-107); CREATININE RESULT 1.25 mg/dL (0.52-1.25); GLUCOSE 89 mg/dL (75-110); LIPASE 90.5 U/L (23-300); POTASSIUM 3.6 mmol/L (3.6-5.0); SODIUM 143.2 mmol/L (137-145); TOTAL PROTEIN 7.4 g/dL (6.3-8.2)
--- NOTE | 2017-01-17 16:36 | ER Document Report ---
ED General - General Chief Complaint: Abdominal Pain Stated Complaint: ABDOMINAL PAIN Time Seen by Provider: 01/17/17 15:19 Mode of Arrival: Ambulatory Information source: Patient Notes: Patient presents emergency department with complaints of abdominal pain left upper and lower quadrant for the past few days. Patient reports that her last good bowel movement was 1 week ago. She reports green diarrhea days ago and the last few days she has had chunky brown stools. Denies fever vomiting. Denies pain with void but reports urinary frequency. TRAVEL OUTSIDE OF THE [place] IN LAST 30 DAYS: No - HPI Onset: Other Onset/Duration: Persistent Quality of pain: Achy Pain Level: 5 Associated symptoms: Nausea Exacerbated by: Movement Relieved by: Denies Similar symptoms previously: No Recently seen / treated by doctor: No - Related Data Allergies/Adverse Reactions: tramadol Allergy (Intermediate, Verified 01/17/17 14:51) AMS Penicillins Allergy (Mild, Verified 01/17/17 14:51) rash Sulfa (Sulfonamide Antibiotics) Allergy (Mild, Verified 01/17/17 14:51) rash aspirin Allergy (Verified 01/17/17 14:51) Past Medical History - General Information source: Patient Last Menstrual Period: may - Social History Smoking Status: Former Smoker Cigarette use (# per day): No Chew tobacco use (# tins/day): No Frequency of alcohol use: None Drug Abuse: None Occupation: none Lives with: Family Family History: CAD, CVA, DM, Hyperlipidemia, Hypertension, Malignancy, Thyroid Disfunction, Other - Past Medical History Cardiac Medical History: Reports: Hx Atrial Fibrillation, Hx Hypercholesterolemia Denies: Hx Coronary Artery Disease, Hx Heart Attack, Hx Hypertension Pulmonary Medical History: Reports: Hx Asthma, Hx Bronchitis Denies: Hx COPD, Hx Pneumonia Neurological Medical History: Denies: Hx Cerebrovascular Accident, Hx Seizures Endocrine Medical History: Reports: Hx Diabetes Mellitus Type 2 - borderline, Hx Hypothyroidism Renal/ Medical History: Denies: Hx Peritoneal Dialysis GI Medical History: Reports: Hx Gastritis, Hx Gastroesophageal Reflux Disease Musculoskeltal Medical History: Reports Hx Arthritis, Reports Hx Musculoskeletal Trauma Psychiatric Medical History: Reports: Hx Anxiety, Hx Depression - anxiety, Hx Schizophrenia Past Surgical History: Reports: Hx Cholecystectomy, Hx Tubal Ligation. Denies: Hx Hysterectomy - Immunizations Immunizations up to date: Yes Hx Diphtheria, Pertussis, Tetanus Vaccination: Yes - 2013 Review of Systems - Review of Systems Notes: Review HPI for review of systems., All other systems negative Physical Exam - Vital signs Vitals: Temp Pulse Resp BP Pulse Ox 97.7 F 97 16 129/82 H 96 01/17/17 14:49 01/17/17 14:49 01/17/17 14:49 01/17/17 14:49 01/17/17 14:49 - Notes Notes: PHYSICAL EXAMINATION: GENERAL: Non toxic looking, in no acute distress HEAD: Atraumatic, normocephalic. EYES: Pupils equal round extraocular movements intact, sclera anicteric, conjunctiva are normal. ENT: nares patent, Moist mucous membranes. NECK: Normal range of motion, supple without lymphadenopathy LUNGS: CTAB and equal. No wheezes rales or rhonchi. HEART: Regular rate and rhythm without murmurs ABDOMEN: Soft, left upper/lower ttp, +[id number],No guarding, no rebound BACK: Denies pain EXTREMITIES: Normal range of motion, no pitting edema. No cyanosis. NEUROLOGICAL: Cranial nerves grossly intact. Normal sensory/motor exams. PSYCH: Normal mood, normal affect. SKIN: Warm, Dry, normal turgor, no rashes or lesions noted Course - Re-evaluation Re-evalutation: 01/17/17 17:44 Labs unremarkable KUB negative - Vital Signs Vital signs: Temp Pulse Resp BP Pulse Ox 97.7 F 97 16 129/82 H 96 01/17/17 14:49 01/17/17 14:49 01/17/17 14:49 01/17/17 14:49 01/17/17 14:49 - Laboratory Result Diagrams: 01/17/17 15:43 01/17/17 15:43 Laboratory results interpreted by me: 01/17/17 01/17/17 15:43 15:43 Chloride 97 L Est GFR ( Amer) 55 L Est GFR (Non-Af Amer) 45 L AST 41 H Alkaline Phosphatase 151 H Ur Leukocyte Esterase MODERATE H - Diagnostic Test Radiology reviewed: Image reviewed, Reports reviewed - neg KUB Discharge - Discharge Clinical Impression: Abdominal pain Qualifiers: Abdominal location: unspecified location Qualified Code(s): R10.9 - Unspecified abdominal pain Condition: Stable Disposition: HOME, SELF-CARE Instructions: Abdominal Pain ([facility]) Additional Instructions: *You have been evaluated for abdominal pain, nausea *Take medication as prescribed *Follow up with a primary care provider within 5 days *Return to ED for worsening condition, changes, needs *Return to ED if not better in 24 hours Monitor your blood pressure. Your blood pressure was elevated today. This may be because you were anxious, in pain or because you need medication. It is important to follow up with your primary care provider for full evaluation. Forms: Elevated Blood Pressure
--- NOTE | 2017-01-17 17:33 | RADIOLOGY REPORT (SQ) ---
EXAM DESCRIPTION: KUB/ABDOMEN (SINGLE VIEW) COMPLETED DATE/TIME: 01/17/2017 5:21 pm REASON FOR STUDY: abd pain COMPARISON: None. NUMBER OF VIEWS: One view. TECHNIQUE: Supine radiographic image of the abdomen acquired. LIMITATIONS: None. FINDINGS: BOWEL GAS PATTERN: Normal bowel gas pattern. No dilated loops. CALCIFICATIONS: No suspicious calcifications. SOFT TISSUES: No gross mass or suggestion of organomegaly. HARDWARE: Incidental note is made of cholecystectomy clips. BONES: No acute fracture. No worrisome bone lesions. OTHER: No other significant finding. IMPRESSION: NO RADIOGRAPHIC EVIDENCE FOR ACUTE ABDOMINAL DISEASE. TECHNICAL DOCUMENTATION: JOB ID: [id number] [employer]- All Rights Reserved
[2017-01-17] MEDS ORDERED: ONDANSETRON ODT 4 MG TAB (6 TAB/DSPK) PO PRN (17:59)
== END 2017-01-17 18:13 | disposition home or self-care (01) ==
LOC: ER 14:44
DX: R10.9 Unspecified abdominal pain (principal); R10.12 Left upper quadrant pain; R10.32 Left lower quadrant pain; R19.7 Diarrhea, unspecified; Z87.891 Personal history of nicotine dependence
CPT/HCPCS: 99284; 36415; 83690; 84703; 85025; 80053; 81001; 74000; S0119

== ENCOUNTER 2017-02-07 17:32 | Emergency (ER) | payer SELFPAY ==
[2017-02-07] MEDS ORDERED: ONDANSETRON HCL INJ/PF 4 MG/2 ML SDV IV ONE ×2 (18:03→20:38)
[2017-02-07] MEDS ORDERED: NORMAL SALINE 1000 ML 1,000 ML IV ONE (18:03)
--- NOTE | 2017-02-07 18:04 | ER Document Report ---
ED General - General Chief Complaint: Vomiting Stated Complaint: VOMITING Time Seen by Provider: 02/07/17 18:00 Mode of Arrival: Wheelchair Information source: Patient Notes: 51-year-old female presents with 3 day duration nausea vomiting diarrhea. Patient denies any fevers or chills notes she has had cramping in her abdomen Patient notes more vomiting rather than diarrhea. Patient has had partial hysterectomy and cholecystectomy TRAVEL OUTSIDE OF THE [place] IN LAST 30 DAYS: No - HPI Onset: Other Onset/Duration: Persistent Quality of pain: Cramping Severity: Mild Pain Level: 1 Associated symptoms: Diarrhea, Nausea, Vomiting Exacerbated by: Denies Relieved by: Denies Similar symptoms previously: No Recently seen / treated by doctor: No - Related Data Allergies/Adverse Reactions: tramadol Allergy (Intermediate, Verified 02/07/17 17:40) AMS Penicillins Allergy (Mild, Verified 02/07/17 17:40) rash Sulfa (Sulfonamide Antibiotics) Allergy (Mild, Verified 02/07/17 17:40) rash aspirin Allergy (Verified 02/07/17 17:40) Past Medical History - Social History Smoking Status: Current Every Day Smoker Cigarette use (# per day): Yes Chew tobacco use (# tins/day): No Smoking Education Provided: No Family History: CAD, CVA, DM, Hyperlipidemia, Hypertension, Malignancy, Thyroid Disfunction, Other Patient has suicidal ideation: No Patient has homicidal ideation: No - Past Medical History Cardiac Medical History: Reports: Hx Atrial Fibrillation, Hx Hypercholesterolemia Denies: Hx Coronary Artery Disease, Hx Heart Attack, Hx Hypertension Pulmonary Medical History: Reports: Hx Asthma, Hx Bronchitis Denies: Hx COPD, Hx Pneumonia Neurological Medical History: Denies: Hx Cerebrovascular Accident, Hx Seizures Endocrine Medical History: Reports: Hx Diabetes Mellitus Type 2 - borderline, Hx Hypothyroidism Renal/ Medical History: Denies: Hx Peritoneal Dialysis GI Medical History: Reports: Hx Gastritis, Hx Gastroesophageal Reflux Disease Musculoskeltal Medical History: Reports Hx Arthritis, Reports Hx Musculoskeletal Trauma Psychiatric Medical History: Reports: Hx Anxiety, Hx Depression - anxiety, Hx Schizophrenia Past Surgical History: Reports: Hx Cholecystectomy, Hx Tubal Ligation. Denies: Hx Hysterectomy - Immunizations Immunizations up to date: Yes Hx Diphtheria, Pertussis, Tetanus Vaccination: Yes - 2012 Review of Systems - Review of Systems Notes: REVIEW OF SYSTEMS: CONSTITUTIONAL : Denies fever, chills, or sweats. Denies recent illness. EENT: Denies eye, ear, throat, or mouth pain or symptoms. Denies nasal or sinus congestion or discharge. Denies throat, tongue, or mouth swelling or difficulty swallowing. CARDIOVASCULAR: Denies chest pain. Denies palpitations or racing or irregular heart beat. Denies ankle edema. RESPIRATORY: Denies cough, cold, or chest congestion. Denies shortness of breath, difficulty breathing, or wheezing. GASTROINTESTINAL: admits to nausea vomiting diarrhea GENITOURINARY: Denies difficulty urinating, painful urination, burning, frequency, blood in urine, or discharge. FEMALE GENITOURINARY: Denies vaginal bleeding, heavy or abnormal periods, irregular periods. Denies vaginal discharge or odor. MUSCULOSKELETAL: Denies back or neck pain or stiffness. Denies joint pain or swelling. SKIN: Denies rash, lesions or sores. HEMATOLOGIC : Denies easy bruising or bleeding. LYMPHATIC: Denies swollen, enlarged glands. NEUROLOGICAL: Denies confusion or altered mental status. Denies passing out or loss of consciousness. Denies dizziness or lightheadedness. Denies headache. Denies weakness or paralysis or loss of use of either side. Denies problems with gait or speech. Denies sensory loss, numbness, or tingling. Denies seizures. PSYCHIATRIC: Denies anxiety or stress. Denies depression, suicidal ideation, or homicidal ideation. ALL OTHER SYSTEMS REVIEWED AND NEGATIVE. PHYSICAL EXAMINATION: GENERAL: Well-appearing, well-nourished and in no acute distress. HEAD: Atraumatic, normocephalic. EYES: Pupils equal round and reactive to light, extraocular movements intact, conjunctiva are normal. ENT: Nares patent, oropharynx clear without exudates. Moist mucous membranes. NECK: Normal range of motion, supple without lymphadenopathy LUNGS: Breath sounds clear to auscultation bilaterally and equal. No wheezes rales or rhonchi. HEART: Regular rate and rhythm without murmurs ABDOMEN: Soft, nontender, nondistended abdomen. No guarding, no rebound. No masses appreciated. Female : deferred Musculoskeletal: Normal range of motion, no pitting or edema. No cyanosis. NEUROLOGICAL: Cranial nerves grossly intact. Normal speech, normal gait. Normal sensory, motor exams PSYCH: Normal mood, normal affect. SKIN: Warm, Dry, normal turgor, no rashes or lesions noted. Dictation was performed using [employer] voice recognition software Physical Exam - Vital signs Vitals: Temp Pulse Resp BP Pulse Ox 97.8 F 93 18 141/53 H 98 02/07/17 17:40 02/07/17 17:40 02/07/17 17:40 02/07/17 17:40 02/07/17 17:40 Course - Re-evaluation Re-evalutation: 02/07/17 18:43 pts exam was extremely benign, she will have lab work and iv fluids and nausea control 02/07/17 20:38 Patient wishes to be discharged prior to CMP resulting, she will be given another dose of Zofran here and given a dispensed pack for home She otherwise looks well is in no distress After performing a Medical Screening Examination, I estimate there is LOW risk for ACUTE APPENDICITIS, BOWEL OBSTRUCTION, ACUTE CHOLECYSTITIS, PERFORATED DIVERTICULITIS, INCARCERATED HERNIA, PANCREATITIS, PELVIC INFLAMMATORY DISEASE, PERFORATED ULCER, ECTOPIC , or TUBO-OVARIAN ABSCESS, thus I consider the discharge disposition reasonable. Also, there is no evidence or peritonitis , sepsis, or toxicity. I have reevaluated this patient multiple times and no significant life threatening changes are noted. The patient and I have discussed the diagnosis and risks, and we agree with discharging home with close follow-up with the understanding that symptoms and presentations can change. We also discussed returning to the Emergency Department immediately if new or worsening symptoms occur. We have discussed the symptoms which are most concerning (e.g., bloody stool, fever, changing or worsening pain, vomiting) that necessitate immediate return. - Vital Signs Vital signs: Temp Pulse Resp BP Pulse Ox 97.8 F 93 18 141/53 H 98 02/07/17 17:40 02/07/17 17:40 02/07/17 17:40 02/07/17 17:40 02/07/17 17:40 - Laboratory Result Diagrams: 02/07/17 18:40 02/07/17 18:40 Discharge - Discharge Clinical Impression: Nausea vomiting and diarrhea Condition: Stable Disposition: HOME, SELF-CARE Instructions: Vomiting ([facility]) Additional Instructions: Follow up with your physician tomorrow for further care or return to the ED IMMEDIATELY if symptoms worsen or new concerns occur. If you cannot afford to follow up with your primary care physician a list of low cost clinics have been provided at the end of your discharge papers as well.
[2017-02-07 19:11] LABS: ABSOLUTE BASOPHILS # (AUTO) 0.1 10^3/uL (0.0-0.2); ABSOLUTE LYMPHOCYTES (AUTO) 2.3 10^3/uL (0.5-4.7); ABSOLUTE MONOCYTES (AUTO) 0.6 10^3/uL (0.1-1.4); ABSOLUTE NEUT (AUTO) 6.4 10^3/uL (1.7-8.2); BASOPHILS % (AUTO) 1.1 % (0-2); EOSINOPHILS % (AUTO) 0.1 % (0-6); HEMATOCRIT 40.2 % (36.0-47.0); HEMOGLOBIN 13.8 g/dL (12.0-15.5); HGB HCT DIFFERENCE 1.2; LYMPHOCYTES % (AUTO) 24.7 % (13-45); MEAN CORPUSCULAR HEMOGLOBIN 31.4 pg (27.0-33.4); MEAN CORPUSCULAR HGB CONC 34.4 g/dL (32.0-36.0); MEAN CORPUSCULAR VOLUME 91 fl (80-97); MONOCYTES % (AUTO) 6.1 % (3-13); RED BLOOD COUNT 4.41 10^6/uL (3.72-5.28); RED CELL DISTRIBUTION WIDTH 13.2 % (11.5-14.0); WHITE BLOOD COUNT 9.5 10^3/uL (4.0-10.5)
[2017-02-07] MEDS ORDERED: ONDANSETRON ODT 4 MG TAB (6 TAB/DSPK) PO PRN (20:09)
[2017-02-07 20:45] LABS: ALANINE AMINOTRANSFERASE 37 U/L (9-52); ALBUMIN 4.5 g/dL (3.5-5.0); ALKALINE PHOSPHATASE 111 U/L (38-126); ANION GAP 18 (5-19); ASPARTATE AMINO TRANSFERASE 49 U/L (14-36); BILIRUBIN,DIRECT 0.6 mg/dL (0.0-0.4); BILIRUBIN,TOTAL 0.9 mg/dL (0.2-1.3); BLOOD UREA NITROGEN 37 mg/dL (7-20); CALCIUM 8.7 mg/dL (8.4-10.2); CARBON DIOXIDE 26 mmol/L (22-30); CHLORIDE 98 mmol/L (98-107); GLUCOSE 108 mg/dL (75-110); LIPASE 56.2 U/L (23-300); POTASSIUM 3.7 mmol/L (3.6-5.0); SODIUM 141.6 mmol/L (137-145); TOTAL PROTEIN 7.3 g/dL (6.3-8.2)
[2017-02-07 21:08] VITALS: BP 123/78
== END 2017-02-07 21:08 | disposition home or self-care (01) ==
LOC: ER 17:32
DX: R11.2 Nausea with vomiting, unspecified (principal); R19.7 Diarrhea, unspecified; N17.9 Acute kidney failure, unspecified; F17.210 Nicotine dependence, cigarettes, uncomplicated; Z90.49 Acquired absence of other specified parts of digestive tract; Z88.5 Allergy status to narcotic agent; Z88.0 Allergy status to penicillin; Z88.2 Allergy status to sulfonamides; Z88.6 Allergy status to analgesic agent; Z87.19 Personal history of other diseases of the digestive system
CPT/HCPCS: 96376; 99283; 96361; 96374; 36415; 84702; 83690; 85025; 80053; J2405; J7030

== ENCOUNTER 2017-02-08 11:37 | Inpatient (IN) | payer SELFPAY ==
--- NOTE | 2017-02-08 12:13 | ER Document Report ---
ED General - General Chief Complaint: Vomiting Stated Complaint: VOMITING Time Seen by Provider: 02/08/17 11:41 Mode of Arrival: Ambulatory Information source: Patient Notes: 51 yr old female presents with day 4 of nausea and vomtiing, pt was seen by myself yesterday, given iv fluids felt better and left before cmp result. pt noted on lab review this morning to have elevated creatinine. Pt was called multiple times and then boardmarker sent to do a well check. pt admits she has not drank since she left last night but does not want to be admitted TRAVEL OUTSIDE OF THE [place] IN LAST 30 DAYS: No - HPI Onset: Last week Onset/Duration: Persistent Quality of pain: Achy Severity: Mild Pain Level: 1 Associated symptoms: Diarrhea, Nausea, Vomiting Exacerbated by: Denies Relieved by: Denies Similar symptoms previously: Yes Recently seen / treated by doctor: Yes - Related Data Allergies/Adverse Reactions: tramadol Allergy (Intermediate, Verified 02/08/17 11:44) AMS Penicillins Allergy (Mild, Verified 02/08/17 11:44) rash Sulfa (Sulfonamide Antibiotics) Allergy (Mild, Verified 02/08/17 11:44) rash aspirin Allergy (Verified 02/08/17 11:44) Home Medications: Current Home Medications Amitriptyline HCl [Elavil 25 mg Tablet] 50 mg PO QHS 02/08/17 [History] Furosemide [Lasix 40 mg Tablet] 80 mg PO DAILY 02/08/17 [History] Metformin HCl [Glucophage] 1,000 mg PO BID 02/08/17 [History] Zolpidem Tartrate [Ambien] 10 mg PO QHS 02/08/17 [History] Past Medical History - Social History Smoking Status: Current Every Day Smoker Cigarette use (# per day): Yes Chew tobacco use (# tins/day): No Smoking Education Provided: No Family History: CAD, CVA, DM, Hyperlipidemia, Hypertension, Malignancy, Thyroid Disfunction, Other Patient has suicidal ideation: No Patient has homicidal ideation: No - Past Medical History Cardiac Medical History: Reports: Hx Atrial Fibrillation, Hx Hypercholesterolemia Denies: Hx Coronary Artery Disease, Hx Heart Attack, Hx Hypertension Pulmonary Medical History: Reports: Hx Asthma, Hx Bronchitis Denies: Hx COPD, Hx Pneumonia Neurological Medical History: Denies: Hx Cerebrovascular Accident, Hx Seizures Endocrine Medical History: Reports: Hx Diabetes Mellitus Type 2 - borderline, Hx Hypothyroidism Renal/ Medical History: Denies: Hx Peritoneal Dialysis GI Medical History: Reports: Hx Gastritis, Hx Gastroesophageal Reflux Disease Musculoskeltal Medical History: Reports Hx Arthritis, Reports Hx Musculoskeletal Trauma Psychiatric Medical History: Reports: Hx Anxiety, Hx Depression - anxiety, Hx Schizophrenia Past Surgical History: Reports: Hx Cholecystectomy, Hx Tubal Ligation. Denies: Hx Hysterectomy - Immunizations Immunizations up to date: Yes Hx Diphtheria, Pertussis, Tetanus Vaccination: Yes - 2012 Review of Systems - Review of Systems Notes: REVIEW OF SYSTEMS: CONSTITUTIONAL : Denies fever, chills, or sweats. Denies recent illness. EENT: Denies eye, ear, throat, or mouth pain or symptoms. Denies nasal or sinus congestion or discharge. Denies throat, tongue, or mouth swelling or difficulty swallowing. CARDIOVASCULAR: Denies chest pain. Denies palpitations or racing or irregular heart beat. Denies ankle edema. RESPIRATORY: Denies cough, cold, or chest congestion. Denies shortness of breath, difficulty breathing, or wheezing. GASTROINTESTINAL: Admits to nausea vomiting diarrhea GENITOURINARY: Denies difficulty urinating, painful urination, burning, frequency, blood in urine, or discharge. FEMALE GENITOURINARY: Denies vaginal bleeding, heavy or abnormal periods, irregular periods. Denies vaginal discharge or odor. MUSCULOSKELETAL: Denies back or neck pain or stiffness. Denies joint pain or swelling. SKIN: Denies rash, lesions or sores. HEMATOLOGIC : Denies easy bruising or bleeding. LYMPHATIC: Denies swollen, enlarged glands. NEUROLOGICAL: Denies confusion or altered mental status. Denies passing out or loss of consciousness. Denies dizziness or lightheadedness. Denies headache. Denies weakness or paralysis or loss of use of either side. Denies problems with gait or speech. Denies sensory loss, numbness, or tingling. Denies seizures. PSYCHIATRIC: Denies anxiety or stress. Denies depression, suicidal ideation, or homicidal ideation. ALL OTHER SYSTEMS REVIEWED AND NEGATIVE. PHYSICAL EXAMINATION: GENERAL: Well-appearing, well-nourished and in no acute distress. HEAD: Atraumatic, normocephalic. EYES: Pupils equal round and reactive to light, extraocular movements intact, conjunctiva are normal. ENT: Nares patent, oropharynx clear without exudates. Moist mucous membranes. NECK: Normal range of motion, supple without lymphadenopathy LUNGS: Breath sounds clear to auscultation bilaterally and equal. No wheezes rales or rhonchi. HEART: Regular rate and rhythm without murmurs ABDOMEN: Soft, nontender, nondistended abdomen. No guarding, no rebound. No masses appreciated. Female : deferred Musculoskeletal: Normal range of motion, no pitting or edema. No cyanosis. NEUROLOGICAL: Cranial nerves grossly intact. Normal speech, normal gait. Normal sensory, motor exams PSYCH: Normal mood, normal affect. SKIN: Warm, Dry, normal turgor, no rashes or lesions noted. Dictation was performed using [employer] voice recognition software Physical Exam - Vital signs Vitals: Temp Pulse Resp BP Pulse Ox 98.1 F 98 16 127/63 H 95 02/08/17 11:44 02/08/17 11:44 02/08/17 11:44 02/08/17 11:44 02/08/17 11:44 Course - Re-evaluation Re-evalutation: 02/08/17 12:12 Patient again overall looks quite well however her creatinine yesterday was 5.4 therefore I did request she come back for further evaluation IV fluids will be started 02/08/17 15:09 Creatinine today was 4.6, patient will be admitted for acute renal failure and will be given IV fluids, ultrasound-guided IV was placed in left antecubital 02/08/17 15:09 Patient is noted to have urinary tract infection IV antibiotics have been ordered - Vital Signs Vital signs: Temp Pulse Resp BP Pulse Ox 98.1 F 98 16 127/63 H 95 02/08/17 11:44 02/08/17 11:44 02/08/17 11:44 02/08/17 11:44 02/08/17 11:44 - Laboratory Result Diagrams: 02/08/17 13:03 02/08/17 13:03 Laboratory results interpreted by me: 02/08/17 02/08/17 02/08/17 13:03 13:03 13:15 Hct 35.9 L Potassium 3.2 L BUN 37 H Creatinine 4.60 H Est GFR ( Amer) 12 L Est GFR (Non-Af Amer) 10 L Urine Protein 30 H Urine Ketones TRACE H Urine Blood SMALL H Ur Leukocyte Esterase LARGE H Critical Care Note - Critical Care Note Total time excluding time spent on procedures (mins): 40 Comments: 40 minutes of critical care time spent in direct contact evaluating and reevaluating the patient, treating symptoms, reviewing labs and studies and speaking with family and consultants excluding any procedures Discharge - Discharge Clinical Impression: Nausea vomiting and diarrhea Acute renal failure Qualifiers: Acute renal failure type: unspecified Qualified Code(s): N17.9 - Acute kidney failure, unspecified UTI (urinary tract infection) Qualifiers: Urinary tract infection type: acute cystitis Hematuria presence: without hematuria Qualified Code(s): N30.00 - Acute cystitis without hematuria Condition: Fair Disposition: ADMITTED INPATIENT Admitting Provider: Hospitalist Unit Admitted: Telemetry
[2017-02-08] MEDS ORDERED: ONDANSETRON HCL INJ/PF 4 MG/2 ML SDV IV ONE (12:36)
[2017-02-08] MEDS: NORMAL SALINE 1000 ML 1,000 ML IV PRN ×2 (12:40→13:01)
[2017-02-08 13:14] LABS: ABSOLUTE BASOPHILS # (AUTO) 0.1 10^3/uL (0.0-0.2); ABSOLUTE LYMPHOCYTES (AUTO) 2.1 10^3/uL (0.5-4.7); ABSOLUTE MONOCYTES (AUTO) 0.5 10^3/uL (0.1-1.4); ABSOLUTE NEUT (AUTO) 3.5 10^3/uL (1.7-8.2); BASOPHILS % (AUTO) 1.2 % (0-2); EOSINOPHILS % (AUTO) 0.1 % (0-6); HEMATOCRIT 35.9 % (36.0-47.0); HEMOGLOBIN 12.1 g/dL (12.0-15.5); HGB HCT DIFFERENCE 0.4; LYMPHOCYTES % (AUTO) 33.8 % (13-45); MEAN CORPUSCULAR HGB CONC 33.8 g/dL (32.0-36.0); MEAN CORPUSCULAR VOLUME 92 fl (80-97); MONOCYTES % (AUTO) 7.7 % (3-13); RED CELL DISTRIBUTION WIDTH 13.1 % (11.5-14.0); SEGMENTED NEUTROPHILS % (AUTO) 57.2 % (42-78); WHITE BLOOD COUNT 6.1 10^3/uL (4.0-10.5)
[2017-02-08 13:26] LABS: ALANINE AMINOTRANSFERASE 37 U/L (9-52); ALBUMIN 4.4 g/dL (3.5-5.0); ALKALINE PHOSPHATASE 112 U/L (38-126); ANION GAP 18 (5-19); ASPARTATE AMINO TRANSFERASE 36 U/L (14-36); BILIRUBIN,DIRECT 0.4 mg/dL (0.0-0.4); BILIRUBIN,TOTAL 0.7 mg/dL (0.2-1.3); BLOOD UREA NITROGEN 37 mg/dL (7-20); CALCIUM 8.6 mg/dL (8.4-10.2); CARBON DIOXIDE 25 mmol/L (22-30); CHLORIDE 100 mmol/L (98-107); GLUCOSE 101 mg/dL (75-110); POTASSIUM 3.2 mmol/L (3.6-5.0); SODIUM 143.1 mmol/L (137-145); TOTAL PROTEIN 6.7 g/dL (6.3-8.2)
[2017-02-08 13:56] LABS: APPEARANCE,URINE CLOUDY; BILIRUBIN,URINE NEGATIVE (NEGATIVE); GLUCOSE, URINE NEGATIVE (NEGATIVE); KETONES,URINE TRACE mg/dL (NEGATIVE); LEUKOCYTE ESTERASE,URINE LARGE (NEGATIVE); NITRITE,URINE NEGATIVE (NEGATIVE); PROTEIN,URINE 30 mg/dL (NEGATIVE); URINE SPECIFIC GRAVITY 1.013; UROBILINOGEN,URINE NEGATIVE mg/dL (<2.0)
[2017-02-08] MEDS ORDERED: CEFTRIAXONE INJ 1000 MG VIAL IV ONE (13:58)
[2017-02-08] MEDS ORDERED: IPRATROPIUM/ALBUTEROL 0.5-2.5 MG/3 ML AMPUL NEB PRN (14:30)
[2017-02-08] MEDS ORDERED: NORMAL SALINE 1000 ML 1,000 ML IV PRN (14:30)
[2017-02-08] MEDS ORDERED: DEXTROSE 40% GEL 15 GM TUBE PO PRN ×2 (14:37)
[2017-02-08] MEDS ORDERED: INSULIN REG, HUMAN 100 UNIT/ML 3 ML VIAL (PYX) SUBCUT PRN (14:37)
[2017-02-08] MEDS ORDERED: GLUCAGON,HUMAN RECOMB 1 MG INJ IM PRN (14:37)
[2017-02-08] MEDS ORDERED: DEXTROSE 50%-WATER 25 GM/50 ML DISP.SYRIN IV PRN ×2 (14:37)
--- NOTE | 2017-02-08 15:04 | PDOC H&P ---
History of Present Illness Admission Date/PCP: 02/08/17 14:24 Patient complains of: Nausea vomiting and diarrhea for 4 days History of Present Illness: Patient is a 51-year-old woman with history of diabetes type 2, hypertension, COPD and hypertension presented to the hospital with complaint of nausea, vomiting and diarrhea that started since last week. She presented to the ER on 02/07/17 and she was given IV fluid, she left before the labs results. Her labs revealed BUN of 37 and creatinine of 5.4. Therefore she was called back today to be admitted. She reports having 4-5 episodes of non- bloody loose diarrhea along with 4 episodes of vomiting, and crampy mid abdominal pain. She takes Lasix 40 mg twice a day and states to have not been able to keep anything down. She denies having any fever but reports chills. No recent antibiotic use, no sick contact and no changes in diet either. She has not had any diarrhea no vomiting since yesterday but feeling nauseous. She has not been able to eat and she denies having any similar episodes. She has no evidence of leukocytosis. Hospitalist consulted for admission for acute kidney injury. Past Medical History Cardiac Medical History: Reports: Atrial Fibrillation, Hyperlipidema Denies: Coronary Artery Disease, Myocardial Infarction, Hypertension Pulmonary Medical History: Reports: Asthma, Bronchitis Denies: Chronic Obstructive Pulmonary Disease (COPD), Pneumonia Neurological Medical History: Denies: Seizures Endocrine Medical History: Reports: Diabetes Mellitus Type 2 - borderline, Hypothyroidism GI Medical History: Reports: Gastroesophageal Reflux Disease Musculoskeltal Medical History: Reports: Arthritis Psychiatric Medical History: Reports: Depression - anxiety Hematology: Denies: Anemia Past Surgical History Past Surgical History: Reports: Cholecystectomy, Tubal Ligation Denies: Hysterectomy Social History Information Source: Patient Smoking Status: Former Smoker Frequency of Alcohol Use: None Hx Recreational Drug Use: No Drugs: None Hx Prescription Drug Abuse: No - Advance Directive Resuscitation Status: Full Code Family History Family History: CAD, CVA, DM, Hyperlipidemia, Hypertension, Malignancy, Thyroid Disfunction, Other Parental Family History Reviewed: Yes Children Family History Reviewed: Yes Sibling(s) Family History Reviewed.: Yes Medication/Allergy Home Medications: Amitriptyline HCl [Elavil 25 mg Tablet] 50 mg PO QHS 02/08/17 Furosemide [Lasix 40 mg Tablet] 80 mg PO DAILY 02/08/17 Metformin HCl [Glucophage] 1,000 mg PO BID 02/08/17 Zolpidem Tartrate [Ambien] 10 mg PO QHS 02/08/17 Allergies/Adverse Reactions: tramadol Allergy (Intermediate, Verified 02/08/17 11:44) AMS Penicillins Allergy (Mild, Verified 02/08/17 11:44) rash Sulfa (Sulfonamide Antibiotics) Allergy (Mild, Verified 02/08/17 11:44) rash aspirin Allergy (Verified 02/08/17 11:44) Review of Systems Constitutional: PRESENT: chills. ABSENT: fever(s), headache(s), weight gain, weight loss Eyes: ABSENT: visual disturbances Ears: ABSENT: hearing changes Cardiovascular: ABSENT: chest pain, dyspnea on exertion, edema, orthropnea, palpitations Respiratory: ABSENT: cough, hemoptysis Gastrointestinal: PRESENT: as per HPI, abdominal pain, nausea, vomiting. ABSENT : constipation, diarrhea, hematemesis, hematochezia Genitourinary: ABSENT: dysuria, hematuria Musculoskeletal: ABSENT: joint swelling Integumentary: ABSENT: rash, wounds Neurological: ABSENT: abnormal gait, abnormal speech, confusion, dizziness, focal weakness, syncope Psychiatric: ABSENT: anxiety, depression, homidical ideation, suicidal ideation Endocrine: ABSENT: cold intolerance, heat intolerance, polydipsia, polyuria Hematologic/Lymphatic: ABSENT: easy bleeding, easy bruising Physical Exam Vital Signs: Temp Pulse Resp BP Pulse Ox 98.1 F 98 16 127/63 H 95 02/08/17 11:44 02/08/17 11:44 02/08/17 11:44 02/08/17 11:44 02/08/17 11:44 General appearance: PRESENT: no acute distress, morbidly obese, other - Looks older than stated age Head exam: PRESENT: atraumatic, normocephalic Eye exam: PRESENT: conjunctiva pink, EOMI, PERRLA. ABSENT: scleral icterus Mouth exam: PRESENT: dry mucosa, tongue midline Neck exam: ABSENT: JVD, lymphadenopathy, thyromegaly Respiratory exam: PRESENT: clear to auscultation denis. ABSENT: rales, rhonchi, wheezes Cardiovascular exam: PRESENT: RRR. ABSENT: diastolic murmur, rubs, systolic murmur Vascular exam: PRESENT: normal capillary refill GI/Abdominal exam: PRESENT: normal bowel sounds, soft, tenderness - mid abdomen. ABSENT: distended, guarding, mass, organolmegaly, rebound Rectal exam: PRESENT: deferred Extremities exam: PRESENT: full ROM. ABSENT: calf tenderness, clubbing, pedal edema Neurological exam: PRESENT: alert, awake, oriented to person, oriented to place , oriented to time, oriented to situation. ABSENT: motor sensory deficit Psychiatric exam: PRESENT: appropriate affect, normal mood. ABSENT: homicidal ideation, suicidal ideation Skin exam: PRESENT: dry, intact, warm. ABSENT: cyanosis, rash Results Laboratory Results: 02/08/17 02/08/17 13:03 13:03 WBC 6.1 RBC 3.90 Hgb 12.1 Hct 35.9 L MCV 92 Plt Count 279 Sodium 143.1 Potassium 3.2 L Chloride 100 Carbon Dioxide 25 Anion Gap 18 BUN 37 H Creatinine 4.60 H Est GFR ( Amer) 12 L Est GFR (Non-Af Amer) 10 L Glucose 101 Calcium 8.6 Assessment & Plan - Diagnosis (1) Acute kidney injury Is this a current diagnosis for this admission?: Yes Plan: This is likely secondary to dehydration exacerbated by diuretics Hold Lasix Creatinine 5.4 and BUN 37 on the day prior She was given some IV fluid with improvement Therefore at this time continue IV fluid and will hold on renal imaging (2) Gastroenteritis Is this a current diagnosis for this admission?: Yes Plan: Likely viral No evidence of fever no leukocytosis Supportive care If any further episode of diarrhea will culture stools (3) Nausea vomiting and diarrhea Is this a current diagnosis for this admission?: Yes Plan: Antiemetics as needed IV fluid hydration (4) Hypokalemia Is this a current diagnosis for this admission?: Yes Plan: Add potassium supplement and check mag level (5) Hypertension Is this a current diagnosis for this admission?: Yes Plan: Hold diuretics (6) Type 2 diabetes mellitus Qualifiers: Chronic kidney disease stage: unspecified stage Is this a current diagnosis for this admission?: Yes Plan: Hold metformin Monitor blood sugar and add sliding scale (7) Possible urinary tract infection Is this a current diagnosis for this admission?: Yes Plan: Given ceftriaxone in the ED and urine culture sent Continue antibiotics pending cultures (8) DVT prophylaxis Is this a current diagnosis for this admission?: Yes Plan: Heparin SQ - Time Time Spent: 50 to 70 Minutes Within: Other - Per improvement of her renal function - Inpatient Certification Medical Necessity: Need For IV Fluids
[2017-02-08] MEDS: ONDANSETRON HCL INJ/PF 4 MG/2 ML SDV IV PRN (19:21)
[2017-02-08] MEDS ORDERED: POTASSIUM CHLORIDE 10 MEQ TABLET.SA PO ONE (20:15)
[2017-02-08] MEDS: CIPROFLOXACIN HCL 500 MG TABLET PO SCH (21:25)
[2017-02-08] MEDS: AMITRIPTYLINE HCL 25 MG TABLET PO SCH (21:25)
[2017-02-08] MEDS: MAGNESIUM SULFATE/D5W 1 GM/100 ML RTUPB IV SCH ×3 (21:25→23:54)
[2017-02-08] MEDS: FAMOTIDINE 20 MG TABLET PO SCH (21:25)
[2017-02-08] MEDS: ZOLPIDEM TARTRATE 5 MG TABLET PO PRN (21:25)
[2017-02-08] MEDS: HEPARIN SOD (PORCINE) 5,000 UNIT/ML 1 ML SYRINGE SUBCUT SCH (21:26)
[2017-02-09] MEDS: HEPARIN SOD (PORCINE) 5,000 UNIT/ML 1 ML SYRINGE SUBCUT SCH ×3 (06:10→21:17)
[2017-02-09] MEDS: ONDANSETRON HCL INJ/PF 4 MG/2 ML SDV IV PRN (06:13)
[2017-02-09] MEDS: FAMOTIDINE 20 MG TABLET PO SCH ×2 (09:27→21:17)
[2017-02-09] MEDS: CIPROFLOXACIN HCL 500 MG TABLET PO SCH ×2 (09:27→21:17)
[2017-02-09 11:21] LABS: ABSOLUTE LYMPHOCYTES (AUTO) 1.6 10^3/uL (0.5-4.7); ABSOLUTE MONOCYTES (AUTO) 0.4 10^3/uL (0.1-1.4); ABSOLUTE NEUT (AUTO) 2.7 10^3/uL (1.7-8.2); EOSINOPHILS % (AUTO) 0.2 % (0-6); HEMATOCRIT 30.7 % (36.0-47.0); HEMOGLOBIN 10.3 g/dL (12.0-15.5); HGB HCT DIFFERENCE 0.2; LYMPHOCYTES % (AUTO) 34.5 % (13-45); MEAN CORPUSCULAR HEMOGLOBIN 30.8 pg (27.0-33.4); MEAN CORPUSCULAR HGB CONC 33.4 g/dL (32.0-36.0); MEAN CORPUSCULAR VOLUME 92 fl (80-97); MONOCYTES % (AUTO) 8.4 % (3-13); RED BLOOD COUNT 3.33 10^6/uL (3.72-5.28); RED CELL DISTRIBUTION WIDTH 13.3 % (11.5-14.0); SEGMENTED NEUTROPHILS % (AUTO) 55.9 % (42-78); WHITE BLOOD COUNT 4.7 10^3/uL (4.0-10.5)
[2017-02-09 11:44] LABS: ANION GAP 12 (5-19); BLOOD UREA NITROGEN 22 mg/dL (7-20); CALCIUM 8.2 mg/dL (8.4-10.2); CARBON DIOXIDE 22 mmol/L (22-30); CHLORIDE 110 mmol/L (98-107); CREATININE RESULT 2.18 mg/dL (0.52-1.25); GLUCOSE 96 mg/dL (75-110); MAGNESIUM 1.7 mg/dL (1.6-2.3)
[2017-02-09 11:56] LABS: POTASSIUM 4.3 mmol/L (3.6-5.0)
--- NOTE | 2017-02-09 13:14 | PDOC PROGRESS REPORT ---
Subjective Progress Note for:: 02/09/17 Subjective:: Patient is a 51-year-old woman with history of diabetes type 2, hypertension, COPD and hypertension presented to the hospital with complaint of nausea, vomiting and diarrhea that started since last week. She presented to the ER on 02/07/17 and she was given IV fluid, she left before the labs results. Her labs revealed BUN of 37 and creatinine of 5.4. Therefore she was called back on 02/08/17 to be admitted. She reports having 4-5 episodes of non-bloody loose diarrhea along with 4 episodes of vomiting, and crampy mid abdominal pain. She takes Lasix 40 mg twice a day and states to have not been able to keep anything down. She denies having any fever but reports chills. No recent antibiotic use, no sick contact and no changes in diet either. She has not had any diarrhea no vomiting since the day before admission but feeling nauseous. She has not been able to eat and she denies having any similar episodes. She has no evidence of leukocytosis. Hospitalist consulted for admission for acute kidney injury. Seen and examined this am, she reports feeling better no reports of vomiting no diarrhea. Abdominal pain much better. She was sitting eating breakfast. Physical Exam Vital Signs: Temp Pulse Resp BP Pulse Ox 98.1 F 82 20 104/50 L 96 02/09/17 07:26 02/09/17 07:26 02/09/17 07:26 02/09/17 07:26 02/09/17 07:26 Intake & Output 02/08/17 02/09/17 02/10/17 06:59 06:59 06:59 Intake Total 2824 Output Total 600 Balance 2224 Weight 104.5 kg General appearance: PRESENT: no acute distress, obese, other - looks older than stated Head exam: PRESENT: atraumatic, normocephalic Eye exam: PRESENT: conjunctiva pink, EOMI. ABSENT: scleral icterus Mouth exam: PRESENT: moist, tongue midline Teeth exam: PRESENT: edentulous Neck exam: ABSENT: JVD Respiratory exam: PRESENT: clear to auscultation denis. ABSENT: rales, rhonchi, wheezes Cardiovascular exam: PRESENT: RRR. ABSENT: diastolic murmur, rubs, systolic murmur Vascular exam: PRESENT: normal capillary refill GI/Abdominal exam: PRESENT: normal bowel sounds, soft. ABSENT: distended, guarding, mass, organolmegaly, rebound, tenderness Rectal exam: PRESENT: deferred Extremities exam: PRESENT: full ROM. ABSENT: calf tenderness, clubbing, pedal edema Neurological exam: PRESENT: alert, awake, oriented to person, oriented to place , oriented to time, oriented to situation. ABSENT: motor sensory deficit Psychiatric exam: PRESENT: appropriate affect, normal mood. ABSENT: homicidal ideation, suicidal ideation Skin exam: PRESENT: dry, intact, warm. ABSENT: cyanosis, rash Results Laboratory Results: 02/09/17 10:41 02/09/17 10:41 02/09/17 02/09/17 02/09/17 08:31 08:31 10:41 WBC Cancelled RBC Cancelled Hgb Cancelled Hct Cancelled MCV Cancelled MCH Cancelled MCHC Cancelled RDW Cancelled Plt Count Cancelled Seg Neutrophils % Cancelled Lymphocytes % Cancelled Monocytes % Cancelled Eosinophils % Cancelled Basophils % Cancelled Absolute Neutrophils Cancelled Absolute Lymphocytes Cancelled Absolute Monocytes Cancelled Absolute Eosinophils Cancelled Absolute Basophils Cancelled Sodium Cancelled 144.0 Potassium Cancelled 4.3 D Chloride Cancelled 110 H Carbon Dioxide Cancelled 22 Anion Gap Cancelled 12 BUN Cancelled 22 H Creatinine Cancelled 2.18 H Est GFR ( Amer) Cancelled 29 L Est GFR (Non-Af Amer) Cancelled 24 L Glucose Cancelled 96 Calcium Cancelled 8.2 L Magnesium Cancelled 1.7 02/09/17 10:41 WBC 4.7 RBC 3.33 L Hgb 10.3 L Hct 30.7 L MCV 92 MCH 30.8 MCHC 33.4 RDW 13.3 Plt Count 240 Seg Neutrophils % 55.9 Lymphocytes % 34.5 Monocytes % 8.4 Eosinophils % 0.2 Basophils % 1.0 Absolute Neutrophils 2.7 Absolute Lymphocytes 1.6 Absolute Monocytes 0.4 Absolute Eosinophils 0.0 Absolute Basophils 0.0 Sodium Potassium Chloride Carbon Dioxide Anion Gap BUN Creatinine Est GFR ( Amer) Est GFR (Non-Af Amer) Glucose Calcium Magnesium Assessment & Plan - Diagnosis (1) Acute kidney injury Is this a current diagnosis for this admission?: Yes Plan: This is likely secondary to dehydration exacerbated by diuretics Continue to hold Lasix Creatinine 2.2 and BUN 22 Continue IV fluid hydration and strict intake and output Renally dosed all medications (2) Gastroenteritis Is this a current diagnosis for this admission?: Yes Plan: Likely viral IV fluid and supportive care (3) Nausea vomiting and diarrhea Is this a current diagnosis for this admission?: Yes Plan: Antiemetics as needed IV fluid hydration (4) Hypokalemia Is this a current diagnosis for this admission?: Yes Plan: Resolved (5) Hypertension Is this a current diagnosis for this admission?: Yes Plan: Hold diuretics (6) Type 2 diabetes mellitus Qualifiers: Chronic kidney disease stage: unspecified stage Is this a current diagnosis for this admission?: Yes Plan: Hold metformin BS at goal Monitor blood sugar and add sliding scale (7) Possible urinary tract infection Is this a current diagnosis for this admission?: Yes Plan: Given ceftriaxone in the ED and urine culture sent and pending Continue antibiotics pending cultures. On PO cipro (8) Paroxysmal A-fib Is this a current diagnosis for this admission?: Yes Plan: Seen cards last month Commended sleep study and anticoagulation She states that she could not afford Currently NSR on monitor technician (9) Hypomagnesemia Is this a current diagnosis for this admission?: Yes Plan: Resolved (10) DVT prophylaxis Is this a current diagnosis for this admission?: Yes Plan: Heparin SQ - Time Time Spent with patient: 25-34 minutes Within: Other - Depending on her renal function
[2017-02-09] MEDS: ZOLPIDEM TARTRATE 5 MG TABLET PO PRN (21:17)
[2017-02-09] MEDS: AMITRIPTYLINE HCL 25 MG TABLET PO SCH (21:17)
[2017-02-10] MEDS: HEPARIN SOD (PORCINE) 5,000 UNIT/ML 1 ML SYRINGE SUBCUT SCH ×3 (05:12→22:39)
[2017-02-10 07:39] LABS: HEMATOCRIT 28.4 % (36.0-47.0); HEMOGLOBIN 9.5 g/dL (12.0-15.5); HGB HCT DIFFERENCE 0.1; MEAN CORPUSCULAR HEMOGLOBIN 31.2 pg (27.0-33.4); MEAN CORPUSCULAR HGB CONC 33.4 g/dL (32.0-36.0); MEAN CORPUSCULAR VOLUME 94 fl (80-97); RED BLOOD COUNT 3.04 10^6/uL (3.72-5.28); RED CELL DISTRIBUTION WIDTH 13.4 % (11.5-14.0); WHITE BLOOD COUNT 5.2 10^3/uL (4.0-10.5)
[2017-02-10 07:48] LABS: ANION GAP 11 (5-19); BLOOD UREA NITROGEN 12 mg/dL (7-20); CALCIUM 8.4 mg/dL (8.4-10.2); CARBON DIOXIDE 22 mmol/L (22-30); CHLORIDE 112 mmol/L (98-107); CREATININE RESULT 1.45 mg/dL (0.52-1.25); GLUCOSE 83 mg/dL (75-110); MAGNESIUM 1.3 mg/dL (1.6-2.3); POTASSIUM 3.8 mmol/L (3.6-5.0); SODIUM 144.9 mmol/L (137-145)
[2017-02-10] MEDS: ONDANSETRON HCL INJ/PF 4 MG/2 ML SDV IV PRN (09:45)
[2017-02-10] MEDS: FAMOTIDINE 20 MG TABLET PO SCH ×2 (09:45→22:39)
[2017-02-10] MEDS: CIPROFLOXACIN HCL 500 MG TABLET PO SCH ×2 (09:46→22:39)
[2017-02-10] MEDS ORDERED: ACETAMINOPHEN 325 MG TABLET PO PRN (10:34)
[2017-02-10] MEDS: POLYETHYLENE GLYCOL 3350 POWDER 17 GM/1 PACKET PO PRN (11:41)
--- NOTE | 2017-02-10 16:03 | PDOC PROGRESS REPORT ---
Subjective Subjective:: 51-year-old female who presented to the ED with nausea, vomiting, diarrhea found to have acute renal failure. She is doing much better. Appetite is better and she is drinking well. She is making lots of urine and would like trial of discontinuing IV fluid. No further nausea or vomiting, no abdominal pain, denies fever or chills, no chest pain or shortness of breath or palpitations. Physical Exam Vital Signs: Temp Pulse Resp BP Pulse Ox 98.0 F 88 18 124/73 96 02/10/17 11:21 02/10/17 11:21 02/10/17 11:21 02/10/17 11:21 02/10/17 11:21 Intake & Output 02/09/17 02/10/17 02/11/17 06:59 06:59 06:59 Intake Total 2824 3295 Output Total 600 150 Balance 2224 3145 Weight 104.5 kg 107 kg 107 kg Exam: GENERAL: Well-developed, no acute distress CARDIOVASCULAR: RRR, normal S1-S2 LUNGS: CTA bilaterally ABDOMEN: Soft, NT, NL bowel sounds EXTREMITIES: No edema, clubbing, cyanosis NEUROLOGICAL: Alert, oriented x 3 Results Laboratory Results: 02/10/17 06:25 02/10/17 07:04 02/10/17 02/10/17 06:25 07:04 WBC 5.2 RBC 3.04 L Hgb 9.5 L Hct 28.4 L MCV 94 MCH 31.2 MCHC 33.4 RDW 13.4 Plt Count 200 Sodium 144.9 Potassium 3.8 Chloride 112 H Carbon Dioxide 22 Anion Gap 11 BUN 12 Creatinine 1.45 H Est GFR ( Amer) 46 L Est GFR (Non-Af Amer) 38 L Glucose 83 Calcium 8.4 Magnesium 1.3 L Assessment & Plan - Plan Summary Plan Summary: (1) Acute kidney injury Significantly improved. Likely secondary to dehydration and exacerbated by diuretics Will continue to hold Lasix DC IV fluid and encourage good fluid intake Follow-up Chem-7 in a.m. Likely DC home if continues to improve/normalize. (2) Gastroenteritis Likely viral. Improved. (3) Nausea vomiting and diarrhea Improved Continue antiemetics as needed Advance diet as tolerated (4) Hypokalemia Resolved (5) Hypertension Hold diuretics (6) Type 2 diabetes mellitus Hold metformin BS at goal Monitor blood sugar, sliding scale insulin as needed (7) Possible urinary tract infection Plan: Given ceftriaxone and Cipro Follow urine culture results (8) Paroxysmal A-fib Saw cards last month Recommended sleep study and anticoagulation She states that she could not afford Currently NSR on wellness rn (9) Hypomagnesemia Resolved (10) DVT prophylaxis Heparin SQ
[2017-02-10] MEDS: ZOLPIDEM TARTRATE 5 MG TABLET PO PRN (22:39)
[2017-02-10] MEDS: AMITRIPTYLINE HCL 25 MG TABLET PO SCH (22:40)
[2017-02-11] MEDS: HEPARIN SOD (PORCINE) 5,000 UNIT/ML 1 ML SYRINGE SUBCUT SCH ×3 (06:40→22:03)
[2017-02-11 07:33] LABS: ABSOLUTE BASOPHILS # (AUTO) 0.1 10^3/uL (0.0-0.2); ABSOLUTE LYMPHOCYTES (AUTO) 2.4 10^3/uL (0.5-4.7); ABSOLUTE MONOCYTES (AUTO) 0.4 10^3/uL (0.1-1.4); ABSOLUTE NEUT (AUTO) 3.4 10^3/uL (1.7-8.2); BASOPHILS % (AUTO) 1.8 % (0-2); EOSINOPHILS % (AUTO) 0.3 % (0-6); HEMOGLOBIN 9.6 g/dL (12.0-15.5); HGB HCT DIFFERENCE -0.2; LYMPHOCYTES % (AUTO) 38.9 % (13-45); MEAN CORPUSCULAR HEMOGLOBIN 30.9 pg (27.0-33.4); MEAN CORPUSCULAR HGB CONC 33.3 g/dL (32.0-36.0); MEAN CORPUSCULAR VOLUME 93 fl (80-97); MONOCYTES % (AUTO) 5.7 % (3-13); RED BLOOD COUNT 3.12 10^6/uL (3.72-5.28); RED CELL DISTRIBUTION WIDTH 13.2 % (11.5-14.0); SEGMENTED NEUTROPHILS % (AUTO) 53.3 % (42-78); WHITE BLOOD COUNT 6.3 10^3/uL (4.0-10.5)
[2017-02-11 08:17] LABS: ANION GAP 13 (5-19); BLOOD UREA NITROGEN 12 mg/dL (7-20); CALCIUM 9.5 mg/dL (8.4-10.2); CARBON DIOXIDE 22 mmol/L (22-30); CHLORIDE 112 mmol/L (98-107); CREATININE RESULT 1.37 mg/dL (0.52-1.25); GLUCOSE 94 mg/dL (75-110); POTASSIUM 3.7 mmol/L (3.6-5.0); SODIUM 147.3 mmol/L (137-145)
[2017-02-11] MEDS: FAMOTIDINE 20 MG TABLET PO SCH ×2 (10:24→22:04)
[2017-02-11] MEDS: CIPROFLOXACIN HCL 500 MG TABLET PO SCH ×2 (10:24→22:04)
--- NOTE | 2017-02-11 16:32 | PDOC PROGRESS REPORT ---
Subjective Progress Note for:: 02/11/17 Subjective:: Follow-up visit for acute kidney injury due to gastroenteritis with significant nausea vomiting and diarrhea, in the patient with history of hypertension diabetes mellitus type 2 and A. fibrillation The patient is a 51-year-old lady with history of diabetes mellitus type 2, hypertension, COPD who presented to the hospital with complaints of nausea vomiting and diarrhea that started 1 week before. She was initially seen on the emergency room on 02/07/17 and was given IV fluids and left the ER before the lab results. She noted to have significant acute kidney injury on admission with a BUN of 37 and creatinine of 5.4. She was called back on 2016 to be admitted of note the patient had been having 4-5 episodes of nonbloody loose stools with about 4 episodes of vomiting associated with crampy mid abdominal pain. Additionally she was on Lasix 40 mg twice daily. She was admitted and started on IV fluids. Stool for C. difficile was negative. Renal function has improved significantly. Overnight events noted. She reports significant improvement. She still has some loose stools. Denies chest pain, shortness of breath. She has been afebrile. Physical Exam Vital Signs: Temp Pulse Resp BP Pulse Ox 98.1 F 91 18 135/72 H 98 02/11/17 07:37 02/11/17 07:37 02/11/17 07:37 02/11/17 07:37 02/11/17 07:37 Intake & Output 02/10/17 02/11/17 02/12/17 06:59 06:59 06:59 Intake Total 3295 1080 Output Total 150 1770 Balance 3145 -690 Weight 107 kg 110.1 kg General appearance: PRESENT: no acute distress, cooperative, morbidly obese Head exam: PRESENT: atraumatic, normocephalic Respiratory exam: PRESENT: clear to auscultation denis, symmetrical, unlabored Cardiovascular exam: PRESENT: RRR, +S1, +S2 GI/Abdominal exam: PRESENT: normal bowel sounds, soft Neurological exam: PRESENT: alert, awake, oriented to person, oriented to place , oriented to time, oriented to situation Results Laboratory Results: 02/11/17 06:43 02/11/17 06:43 02/11/17 02/11/17 06:43 06:43 WBC 6.3 RBC 3.12 L Hgb 9.6 L Hct 29.0 L MCV 93 MCH 30.9 MCHC 33.3 RDW 13.2 Plt Count 216 Seg Neutrophils % 53.3 Lymphocytes % 38.9 Monocytes % 5.7 Eosinophils % 0.3 Basophils % 1.8 Absolute Neutrophils 3.4 Absolute Lymphocytes 2.4 Absolute Monocytes 0.4 Absolute Eosinophils 0.0 Absolute Basophils 0.1 Sodium 147.3 H Potassium 3.7 Chloride 112 H Carbon Dioxide 22 Anion Gap 13 BUN 12 Creatinine 1.37 H Est GFR ( Amer) 49 L Est GFR (Non-Af Amer) 41 L Glucose 94 Calcium 9.5 02/10/17 02/11/17 02/11/17 07:04 06:43 06:43 WBC 6.3 Hgb 9.6 L Plt Count 216 Sodium 144.9 147.3 H Chloride 112 H 112 H Creatinine 1.45 H 1.37 H Magnesium 1.3 L Assessment & Plan - Diagnosis (1) Acute kidney injury Is this a current diagnosis for this admission?: Yes Plan: Due to dehydration secondary to gastroenteritis, and furosemide usage. Continue to hold furosemide. Continue IV fluids, D5 water, follow BMP. (2) Gastroenteritis Is this a current diagnosis for this admission?: Yes Plan: Possibly viral. C. difficile negative. Continue IV fluids as above, continue supportive care (3) Hypertension Qualifiers: Hypertension type: essential hypertension Qualified Code(s): I10 - Essential (primary) hypertension Is this a current diagnosis for this admission?: Yes Plan: Blood pressure at goal. Continue holding Lasix (4) Hypokalemia Is this a current diagnosis for this admission?: Yes Plan: Replete and recheck (5) Hypomagnesemia Is this a current diagnosis for this admission?: Yes Plan: Replete and recheck (6) Paroxysmal A-fib Is this a current diagnosis for this admission?: Yes Plan: Has not been taking Apixaban due to lack of insurance. [employer] utility worker consulted for financial assistance (7) Possible urinary tract infection Is this a current diagnosis for this admission?: Yes Plan: Improved. Remains afebrile. Continue oral ciprofloxacin (8) Type 2 diabetes mellitus Qualifiers: Chronic kidney disease stage: unspecified stage Is this a current diagnosis for this admission?: Yes Plan: Not requiring insulin for control. Home Metformin held. Capillary glucose stable. Continue sliding scale Novolog - Time Time Spent with patient: 35 or more minutes Anticipated discharge: Home with Homehealth - Inpatient Certification Medical Necessity: Risk of Complication if Not Cared For in Hospital
[2017-02-11] MEDS: DEXTROSE 5%-WATER 1000 ML 1,000 ML IV PRN (16:35)
[2017-02-11] MEDS: POLYETHYLENE GLYCOL 3350 POWDER 17 GM/1 PACKET PO PRN (16:35)
[2017-02-11] MEDS: AMITRIPTYLINE HCL 25 MG TABLET PO SCH (22:04)
[2017-02-11] MEDS: ZOLPIDEM TARTRATE 5 MG TABLET PO PRN (22:05)
[2017-02-12 05:57] LABS: HEMATOCRIT 31.4 % (36.0-47.0); HEMOGLOBIN 10.7 g/dL (12.0-15.5); HGB HCT DIFFERENCE 0.7; MEAN CORPUSCULAR HEMOGLOBIN 31.4 pg (27.0-33.4); MEAN CORPUSCULAR VOLUME 92 fl (80-97); RED CELL DISTRIBUTION WIDTH 13.7 % (11.5-14.0); WHITE BLOOD COUNT 5.8 10^3/uL (4.0-10.5)
[2017-02-12] MEDS: HEPARIN SOD (PORCINE) 5,000 UNIT/ML 1 ML SYRINGE SUBCUT SCH ×3 (06:04→22:07)
[2017-02-12] MEDS: DEXTROSE 5%-WATER 1000 ML 1,000 ML IV PRN (06:05)
[2017-02-12 06:16] LABS: ALANINE AMINOTRANSFERASE 41 U/L (9-52); ALBUMIN 3.9 g/dL (3.5-5.0); ALKALINE PHOSPHATASE 98 U/L (38-126); ASPARTATE AMINO TRANSFERASE 40 U/L (14-36); BILIRUBIN,DIRECT 0.3 mg/dL (0.0-0.4); BILIRUBIN,TOTAL 0.6 mg/dL (0.2-1.3); BLOOD UREA NITROGEN 10 mg/dL (7-20); CALCIUM 9.7 mg/dL (8.4-10.2); CARBON DIOXIDE 23 mmol/L (22-30); CHLORIDE 108 mmol/L (98-107); CREATININE RESULT 1.27 mg/dL (0.52-1.25); GLUCOSE 93 mg/dL (75-110); POTASSIUM 3.8 mmol/L (3.6-5.0)
[2017-02-12 06:18] LABS: ANION GAP 14 (5-19); SODIUM 145.2 mmol/L (137-145)
[2017-02-12 06:23] LABS: MAGNESIUM 1.1 mg/dL (1.6-2.3)
[2017-02-12] MEDS: MAGNESIUM SULFATE/D5W 1 GM/100 ML RTUPB IV SCH ×3 (08:01→12:12)
[2017-02-12] MEDS ORDERED: MAGNESIUM SULFATE/D5W 1 GM/100 ML RTUPB IV SCH (09:00)
[2017-02-12] MEDS: CIPROFLOXACIN HCL 500 MG TABLET PO SCH ×2 (09:47→22:07)
[2017-02-12] MEDS: FAMOTIDINE 20 MG TABLET PO SCH ×2 (09:47→22:08)
[2017-02-12] MEDS ORDERED: ZOLPIDEM TARTRATE 5 MG TABLET PO PRN (10:30)
[2017-02-12] MEDS ORDERED: ONDANSETRON HCL INJ/PF 4 MG/2 ML SDV IV PRN (10:30)
--- NOTE | 2017-02-12 12:47 | PDOC PROGRESS REPORT ---
Subjective Progress Note for:: 02/12/17 Subjective:: Follow-up visit for acute kidney injury due to gastroenteritis with significant nausea vomiting and diarrhea, in the patient with history of hypertension diabetes mellitus type 2 and A. fibrillation The patient is a 51-year-old lady with history of diabetes mellitus type 2, hypertension, COPD who presented to the hospital with complaints of nausea vomiting and diarrhea that started 1 week before. She was initially seen on the emergency room on 02/07/17 and was given IV fluids and left the ER before the lab results. She noted to have significant acute kidney injury on admission with a BUN of 37 and creatinine of 5.4. She was called back on 2016 to be admitted of note the patient had been having 4-5 episodes of nonbloody loose stools with about 4 episodes of vomiting associated with crampy mid abdominal pain. Additionally she was on Lasix 40 mg twice daily. She was admitted and started on IV fluids. Stool for C. difficile was negative. Renal function has improved significantly. Overnight events noted. She reports significant improvement. She still has some loose stools. Denies chest pain, shortness of breath. She has been afebrile. Physical Exam Vital Signs: Temp Pulse Resp BP Pulse Ox 98.3 F 84 20 116/69 95 02/12/17 07:50 02/12/17 07:50 02/12/17 07:50 02/12/17 07:50 02/12/17 07:50 Intake & Output 02/11/17 02/12/17 02/13/17 06:59 06:59 06:59 Intake Total 1080 3450 Output Total 1770 3400 Balance -690 50 Weight 110.1 kg 110.3 kg General appearance: PRESENT: no acute distress, cooperative, morbidly obese Head exam: PRESENT: atraumatic, normocephalic Respiratory exam: PRESENT: clear to auscultation denis, symmetrical, unlabored. ABSENT: accessory muscle use, chest wall tenderness, crackles, decreased breath sounds, prolonged expiratory phas, rales, retraction, rhonchi, stridor, tachypnea, wheezes, other Cardiovascular exam: PRESENT: RRR, +S1, +S2. ABSENT: bradycardia, clicks, diastolic murmur, gallop, irregular rhythm, rubs, systolic murmur, tachycardia, other GI/Abdominal exam: PRESENT: normal bowel sounds, soft. ABSENT: ascites, diminished bowel sounds, distended, firm, guarding, hernia, hyperactive bowel sounds, hypoactive bowel sounds, mass, Butler's sign, organolmegaly, rebound, rigid, tenderness, other Extremities exam: PRESENT: pedal edema, +2 edema Musculoskeletal exam: PRESENT: ambulatory, full ROM. ABSENT: deformity, dislocation, normal inspection, tenderness, other Neurological exam: PRESENT: alert, awake, oriented to person, oriented to place , oriented to time, oriented to situation, reflexes normal, CN II-XII grossly intact Psychiatric exam: PRESENT: depressed, flat affect Results Laboratory Results: 02/12/17 05:28 02/12/17 05:28 02/12/17 02/12/17 05:28 05:28 WBC 5.8 RBC 3.40 L Hgb 10.7 L Hct 31.4 L MCV 92 MCH 31.4 MCHC 34.0 RDW 13.7 Plt Count 263 Sodium 145.2 H Potassium 3.8 Chloride 108 H Carbon Dioxide 23 Anion Gap 14 BUN 10 Creatinine 1.27 H Est GFR ( Amer) 54 L Est GFR (Non-Af Amer) 44 L Glucose 93 Calcium 9.7 Magnesium 1.1 L* Total Bilirubin 0.6 AST 40 H ALT 41 Alkaline Phosphatase 98 Total Protein 6.0 L Albumin 3.9 02/08/17 02/12/17 13:03 05:28 Creatinine 4.60 H 1.27 H Assessment & Plan - Diagnosis (1) Acute kidney injury Is this a current diagnosis for this admission?: Yes Plan: Due to dehydration secondary to gastroenteritis, and furosemide usage. Significantly improved with IV fluids. Will discontinue IV fluids and restart home furosemide (2) Gastroenteritis Is this a current diagnosis for this admission?: Yes Plan: Possibly viral. C. difficile negative. Improved with supportive care (3) Hypertension Qualifiers: Hypertension type: essential hypertension Qualified Code(s): I10 - Essential (primary) hypertension Is this a current diagnosis for this admission?: Yes (4) Paroxysmal A-fib Is this a current diagnosis for this admission?: Yes Plan: Currently normal sinus rhythm. She follows with Dr. Sweeney as an outpatient. Has not been taking Apixaban due to lack of insurance. utility service worker consulted for financial assistance (5) Hypomagnesemia Is this a current diagnosis for this admission?: Yes Plan: Replete and recheck (6) Possible urinary tract infection Is this a current diagnosis for this admission?: Yes Plan: Improved. Remains afebrile. Continue oral ciprofloxacin (7) Type 2 diabetes mellitus Qualifiers: Chronic kidney disease stage: unspecified stage Is this a current diagnosis for this admission?: Yes Plan: Not requiring insulin for control. Home Metformin held. Capillary glucose stable. Continue sliding scale Novolog (8) Hypokalemia Is this a current diagnosis for this admission?: Yes Plan: Repleted - Time Time Spent with patient: 35 or more minutes Anticipated discharge: Home - Inpatient Certification Medical Necessity: Risk of Complication if Not Cared For in Hospital - Plan for discharge home in a.m.
[2017-02-12] MEDS ORDERED: FUROSEMIDE INJ/PF 40 MG/4 ML SDV IV ONE (13:30)
[2017-02-12] MEDS ORDERED: AMITRIPTYLINE HCL 50 MG TABLET PO SCH (22:00)
[2017-02-13] MEDS: HEPARIN SOD (PORCINE) 5,000 UNIT/ML 1 ML SYRINGE SUBCUT SCH ×2 (05:55→14:17)
[2017-02-13 06:11] LABS: HEMATOCRIT 31.1 % (36.0-47.0); HEMOGLOBIN 10.4 g/dL (12.0-15.5); HGB HCT DIFFERENCE 0.1; MEAN CORPUSCULAR HEMOGLOBIN 30.9 pg (27.0-33.4); MEAN CORPUSCULAR HGB CONC 33.4 g/dL (32.0-36.0); MEAN CORPUSCULAR VOLUME 92 fl (80-97); RED BLOOD COUNT 3.37 10^6/uL (3.72-5.28); RED CELL DISTRIBUTION WIDTH 13.4 % (11.5-14.0); WHITE BLOOD COUNT 5.9 10^3/uL (4.0-10.5)
[2017-02-13 06:36] LABS: ANION GAP 12 (5-19); BLOOD UREA NITROGEN 13 mg/dL (7-20); CALCIUM 9.7 mg/dL (8.4-10.2); CARBON DIOXIDE 26 mmol/L (22-30); CHLORIDE 105 mmol/L (98-107); GLUCOSE 105 mg/dL (75-110); MAGNESIUM 1.6 mg/dL (1.6-2.3); POTASSIUM 3.5 mmol/L (3.6-5.0); SODIUM 142.5 mmol/L (137-145)
[2017-02-13] MEDS: FAMOTIDINE 20 MG TABLET PO SCH (09:49)
[2017-02-13] MEDS: CIPROFLOXACIN HCL 500 MG TABLET PO SCH (09:49)
--- NOTE | 2017-02-13 14:50 | PDOC DISCHARGE SUMMARY ---
General - Admit/Disc Date/PCP Admission Date/Primary Care Provider: 02/08/17 14:31 Discharge Date: 02/13/17 - Discharge Diagnosis (1) Acute kidney injury Is this a current diagnosis for this admission?: Yes (2) Gastroenteritis Is this a current diagnosis for this admission?: Yes (3) Hypertension Is this a current diagnosis for this admission?: Yes (4) Paroxysmal A-fib Is this a current diagnosis for this admission?: Yes (5) Hypomagnesemia Is this a current diagnosis for this admission?: Yes (6) Possible urinary tract infection Is this a current diagnosis for this admission?: Yes (7) Type 2 diabetes mellitus Is this a current diagnosis for this admission?: Yes (8) Hypokalemia Is this a current diagnosis for this admission?: Yes - Additional Information Resuscitation Status: Full Code Discharge Diet: As Tolerated, Cardiac Discharge Activity: Activity As Tolerated Home Medications: Amitriptyline HCl [Elavil 25 mg Tablet] 50 mg PO QHS 02/08/17 Furosemide [Lasix 40 mg Tablet] 80 mg PO DAILY 02/08/17 Metformin HCl [Glucophage] 1,000 mg PO BID 02/08/17 Zolpidem Tartrate [Ambien] 10 mg PO QHS 02/08/17 History of Present Illness Patient complains of: Abnormal labs History of Present Illness: SHOSHANA BOWMAN is a 51 year old female with history of diabetes mellitus type 2 , hypertension, COPD who presented to the hospital with complaints of nausea vomiting and diarrhea that started 1 week before. She was initially seen in the emergency room on 02/07/2017 and was given IV fluids and then left the ER for the lab results. She was noted to have significant acute kidney injury with a BUN of 37 and creatinine of 5.4. She was called back on 02/08/2017 and was admitted. Of note the patient reports having been getting about 4-5 episodes of nonbloody loose stools with about 4 episodes of nausea and vomiting associated with crampy mid abdominal pain. Additionally she was on Lasix. Hospital Course Hospital Course: She was admitted and started on IV fluids. Stool for C. difficile was negative. Renal function has improved significantly. Creatinine on admission was 5.7, creatinine on discharge is 1.3. At this point patient is requesting to be discharged home to follow up as an outpatient. Of note the patient does not have a primary care physician and does not have private insurance. [employer] worker was consulted and arranged [facility] Additionally a coupon for 1 months treatment with Eliquis was given to the patient Physical Exam Vital Signs: Temp Pulse Resp BP Pulse Ox 97.3 F 90 12 108/74 97 02/13/17 11:16 02/13/17 11:16 02/13/17 11:16 02/13/17 11:16 02/13/17 11:16 Intake & Output 02/12/17 02/13/17 02/14/17 06:59 06:59 06:59 Intake Total 3450 1030 Output Total 3400 1700 Balance 50 -670 Weight 110.3 kg 110.6 kg General appearance: PRESENT: no acute distress, cooperative, morbidly obese Head exam: PRESENT: atraumatic, normocephalic Eye exam: PRESENT: conjunctiva pink, EOMI Respiratory exam: PRESENT: clear to auscultation denis, symmetrical, unlabored Cardiovascular exam: PRESENT: RRR, +S1, +S2 GI/Abdominal exam: PRESENT: normal bowel sounds, soft. ABSENT: ascites, diminished bowel sounds, distended, firm, guarding, hernia, hyperactive bowel sounds, hypoactive bowel sounds, mass, Butler's sign, organolmegaly, rebound, rigid, tenderness, other Extremities exam: PRESENT: +1 edema Neurological exam: PRESENT: alert, awake, oriented to person, oriented to place , oriented to time, oriented to situation, reflexes normal, CN II-XII grossly intact Psychiatric exam: PRESENT: depressed Results Laboratory Results: 02/13/17 05:40 02/13/17 05:40 02/13/17 02/13/17 05:40 05:40 WBC 5.9 RBC 3.37 L Hgb 10.4 L Hct 31.1 L MCV 92 MCH 30.9 MCHC 33.4 RDW 13.4 Plt Count 254 Sodium 142.5 Potassium 3.5 L Chloride 105 Carbon Dioxide 26 Anion Gap 12 BUN 13 Creatinine 1.30 H Est GFR ( Amer) 52 L Est GFR (Non-Af Amer) 43 L Glucose 105 Calcium 9.7 Magnesium 1.6 02/10/17 14:30 Stool - Stool - Final 02/10/17 14:30 Stool - Stool Stool Culture - Final Qualifiers PATEINT BEING DISCHARGED WITH ANY OF THE FOLLOWING DIAGNOSIS?: No Plan Time Spent: Greater than 30 Minutes
[2017-02-13 16:57] VITALS: BP 129/69
== END 2017-02-13 17:25 | disposition home or self-care (01) | DRG 683 ==
LOC: ER 11:37 → EH 14:24 → UNDOADMIN 14:24 → EH 14:31 → 5 15:15
PROVIDERS: ADMIT Internal Medicine; ATTEND Internal Medicine
PROC: 3E0F73Z Introduction of Anti-inflammatory into Respiratory Tract, Via Natural or Artificial Opening (ICD-10-PCS; principal; 2017-02-08)
DX: N17.9 Acute kidney failure, unspecified (principal); Z68.41 Body mass index [BMI] 40.0-44.9, adult; N39.0 Urinary tract infection, site not specified; E83.42 Hypomagnesemia; A08.4 Viral intestinal infection, unspecified; I48.91 Unspecified atrial fibrillation; E66.01 Morbid (severe) obesity due to excess calories; E11.9 Type 2 diabetes mellitus without complications; I10 Essential (primary) hypertension; M19.90 Unspecified osteoarthritis, unspecified site; I48.0 Paroxysmal atrial fibrillation; F41.9 Anxiety disorder, unspecified; J44.9 Chronic obstructive pulmonary disease, unspecified; E86.0 Dehydration; F17.210 Nicotine dependence, cigarettes, uncomplicated; E87.6 Hypokalemia; E78.5 Hyperlipidemia, unspecified; E03.9 Hypothyroidism, unspecified; Z90.49 Acquired absence of other specified parts of digestive tract; Z98.51 Tubal ligation status; Z79.899 Other long term (current) drug therapy; Z87.891 Personal history of nicotine dependence; Z83.3 Family history of diabetes mellitus; Z79.84 Long term (current) use of oral hypoglycemic drugs; Z88.0 Allergy status to penicillin; Z88.2 Allergy status to sulfonamides; Z88.6 Allergy status to analgesic agent; Z59.7 Insufficient social insurance and welfare support; Z79.02 Long term (current) use of antithrombotics/antiplatelets
CPT/HCPCS: 36415; 80048; 80053; 81001; 82962; 83735; 85025; 85027; 87040; 87045; 87086; 87205; 96361; 96374; 99291; J1644; J1940; J2405; J3475; J3490; J7030; J7060

== ENCOUNTER 2017-03-17 22:59 | Inpatient (IN) | payer SELFPAY ==
[2017-03-18] MEDS ORDERED: NORMAL SALINE 1000 ML 1,000 ML IV ONE ×2 (00:26→03:42)
[2017-03-18] MEDS ORDERED: ONDANSETRON HCL INJ/PF 4 MG/2 ML SDV IV ONE ×2 (00:27→04:51)
[2017-03-18 01:17] LABS: APPEARANCE,URINE CLOUDY; BILIRUBIN,URINE NEGATIVE (NEGATIVE); GLUCOSE, URINE NEGATIVE (NEGATIVE); KETONES,URINE NEGATIVE (NEGATIVE); LEUKOCYTE ESTERASE,URINE LARGE (NEGATIVE); NITRITE,URINE NEGATIVE (NEGATIVE); PROTEIN,URINE 30 mg/dL (NEGATIVE); URINE SPECIFIC GRAVITY 1.005; UROBILINOGEN,URINE NEGATIVE mg/dL (<2.0)
[2017-03-18 01:32] LABS: ABSOLUTE BASOPHILS # (AUTO) 0.1 10^3/uL (0.0-0.2); ABSOLUTE EOSINOPHILS # (AUTO) 0.1 10^3/uL (0.0-0.6); ABSOLUTE LYMPHOCYTES (AUTO) 3.3 10^3/uL (0.5-4.7); ABSOLUTE MONOCYTES (AUTO) 0.5 10^3/uL (0.1-1.4); ABSOLUTE NEUT (AUTO) 5.9 10^3/uL (1.7-8.2); BASOPHILS % (AUTO) 0.9 % (0-2); EOSINOPHILS % (AUTO) 0.6 % (0-6); HEMATOCRIT 32.3 % (36.0-47.0); HEMOGLOBIN 11.4 g/dL (12.0-15.5); HGB HCT DIFFERENCE 1.9; LYMPHOCYTES % (AUTO) 33.5 % (13-45); MEAN CORPUSCULAR HEMOGLOBIN 32.6 pg (27.0-33.4); MEAN CORPUSCULAR HGB CONC 35.2 g/dL (32.0-36.0); MEAN CORPUSCULAR VOLUME 93 fl (80-97); MONOCYTES % (AUTO) 5.1 % (3-13); RED BLOOD COUNT 3.49 10^6/uL (3.72-5.28); RED CELL DISTRIBUTION WIDTH 13.7 % (11.5-14.0); SEGMENTED NEUTROPHILS % (AUTO) 59.9 % (42-78); WHITE BLOOD COUNT 9.8 10^3/uL (4.0-10.5)
--- NOTE | 2017-03-18 02:00 | ER Document Report ---
ED General - General Chief Complaint: Nausea/Vomiting/Diarrhea Stated Complaint: VOMITING Time Seen by Provider: 03/18/17 00:19 Notes: Patient is 51-year-old female with a history of vomiting and diarrhea. She was admitted just over a month ago for vomiting diarrhea and dehydration acute kidney injury. Creatinine returned back to normal and she was discharged home. She said for last several weeks she has had no issues but then over last 3 days she is having vomiting diarrhea again. She says that she is making very small amounts of urine. No fevers. No blood in her stool. No blood or emesis. No associated pain. No pain in her abdomen. No other complaints this time. During her last admission her C. difficile test was negative. She has not been on any recent antibiotics. TRAVEL OUTSIDE OF THE [place] IN LAST 30 DAYS: No - Related Data Allergies/Adverse Reactions: tramadol Allergy (Intermediate, Verified 03/18/17 01:09) AMS Penicillins Allergy (Mild, Verified 03/18/17 01:09) rash Sulfa (Sulfonamide Antibiotics) Allergy (Mild, Verified 03/18/17 01:09) rash aspirin Allergy (Verified 03/18/17 01:09) Home Medications: Current Home Medications Alprazolam [Xanax Xr 1 mg Tablet Extended Release] 1 tab PO TID 03/18/17 [ History] Levothyroxine Sodium [Synthroid 50 Mcg Tablet] 1 tab PO DAILY 03/18/17 [History] Past Medical History - Social History Smoking Status: Unknown if Ever Smoked Frequency of alcohol use: None Drug Abuse: None Family History: CAD, CVA, DM, Hyperlipidemia, Hypertension, Malignancy, Thyroid Disfunction, Other Patient has suicidal ideation: No Patient has homicidal ideation: No - Past Medical History Cardiac Medical History: Reports: Hx Atrial Fibrillation, Hx Hypercholesterolemia Denies: Hx Coronary Artery Disease, Hx Heart Attack, Hx Hypertension Pulmonary Medical History: Reports: Hx Asthma, Hx Bronchitis Denies: Hx COPD, Hx Pneumonia Neurological Medical History: Denies: Hx Cerebrovascular Accident, Hx Seizures Endocrine Medical History: Reports: Hx Diabetes Mellitus Type 2 - borderline, Hx Hypothyroidism Renal/ Medical History: Denies: Hx Peritoneal Dialysis GI Medical History: Reports: Hx Gastritis, Hx Gastroesophageal Reflux Disease Musculoskeltal Medical History: Reports Hx Arthritis, Reports Hx Musculoskeletal Trauma Psychiatric Medical History: Reports: Hx Anxiety, Hx Depression, Hx Schizophrenia Past Surgical History: Reports: Hx Cholecystectomy, Hx Tubal Ligation. Denies: Hx Hysterectomy - Immunizations Immunizations up to date: Yes Hx Diphtheria, Pertussis, Tetanus Vaccination: Yes - 2012 Review of Systems - Review of Systems Notes: My Normal Review Basic REVIEW OF SYSTEMS: CONSTITUTIONAL : Denies fever, chills, or sweats. Denies recent illness. EENT: Denies eye, ear, throat, or mouth pain or symptoms. Denies nasal or sinus congestion. CARDIOVASCULAR: Denies chest pain. RESPIRATORY: Denies cough, cold, or chest congestion. Denies shortness of breath, difficulty breathing, or wheezing. GASTROINTESTINAL: Denies abdominal pain. Vomiting and diarrhea GENITOURINARY: Decreased urination MUSCULOSKELETAL: Denies neck or back pain or joint pain or swelling. SKIN: Denies rash or skin lesions. NEUROLOGICAL: Denies altered mental status or loss of consciousness. Denies headache. Denies weakness or paralysis or loss of use of either side. Denies problems with gait or speech. Denies sensory or motor loss. ALL OTHER SYSTEMS REVIEWED AND NEGATIVE. Physical Exam - Vital signs Vitals: Temp Pulse Resp BP Pulse Ox 97.7 F 108 H 16 136/78 H 108 H 03/17/17 23:10 03/17/17 23:10 03/17/17 23:10 03/17/17 23:10 03/17/17 23:10 - Notes Notes: General Appearance: Well nourished, alert, cooperative, no acute distress, no obvious discomfort. Vitals: reviewed, See vital signs table. Head: no swelling or tenderness to the head Eyes: PERRL, EOMI, Conjuctiva clear Mouth: No decreasd moisture Throat: No tonsillar inflammation, No airway obstruction, No lymphadenopathy Lungs: No wheezing, No rales, No rhonci, No accessory muscle use, good air exchange bilaterally. Heart: Normal rate, Regular rythm, No murmur, no rub Abdomen: Normal BS, soft, No rigidity, No abdominal tenderness, No guarding, no rebound, no abdominal masses, no organomegaly Extremities: strength 5/5 in all extremities, good pulses in all extremities, no swelling or tenderness in the extremities, no edema. Skin: warm, dry, appropriate color, no rash Neuro: speech clear, oriented x 3, normal affect, responds appropriately to questions. Course - Re-evaluation Re-evalutation: 03/18/17 05:12 Patient does have recurrent nausea. I did speak with Dr. Aly, hospitalist, who requested CT scan. CT scan shows diffuse colitis. She does have acute renal failure. She does need admission. She has no leukocytosis and no fevers. I do not see indication for antibiotics at this time. I do not quite understand why the patient is having this happen as a second time with such significant increase in her creatinine. I have ordered more IV fluids and also order replacement potassium and magnesium. Jermain agrees to accept the patient for further workup and treatment of her vomiting diarrhea and acute renal failure. Dictation of this chart was performed using voice recognition software; therefore, there may be some unintended grammatical errors. - Vital Signs Vital signs: Temp Pulse Resp BP Pulse Ox 98.5 F 108 H 16 125/72 99 03/18/17 03:00 03/17/17 23:10 03/18/17 05:00 03/18/17 05:00 03/18/17 05:01 - Laboratory Result Diagrams: 03/18/17 01:15 03/18/17 02:15 Laboratory results interpreted by me: 03/18/17 03/18/17 03/18/17 01:00 01:15 02:15 RBC 3.49 L Hgb 11.4 L Hct 32.3 L Potassium 3.3 L Chloride 97 L BUN 28 H Creatinine 6.03 H Est GFR ( Amer) 9 L Est GFR (Non-Af Amer) 7 L Glucose 111 H Magnesium 1.0 L* Urine Protein 30 H Urine Blood MODERATE H Ur Leukocyte Esterase LARGE H Discharge - Discharge Clinical Impression: Hypomagnesemia, Hypokalemia, Nausea vomiting and diarrhea Acute renal failure Qualifiers: Acute renal failure type: unspecified Qualified Code(s): N17.9 - Acute kidney failure, unspecified Condition: Stable Disposition: ADMITTED OBSERVATION Admitting Provider: Hospitalist Unit Admitted: Telemetry
[2017-03-18 02:43] LABS: ALANINE AMINOTRANSFERASE 41 U/L (9-52); ALBUMIN 4.2 g/dL (3.5-5.0); ALKALINE PHOSPHATASE 96 U/L (38-126); ANION GAP 18 (5-19); ASPARTATE AMINO TRANSFERASE 32 U/L (14-36); BILIRUBIN,DIRECT 0.2 mg/dL (0.0-0.4); BILIRUBIN,TOTAL 0.7 mg/dL (0.2-1.3); BLOOD UREA NITROGEN 28 mg/dL (7-20); CALCIUM 8.9 mg/dL (8.4-10.2); CARBON DIOXIDE 23 mmol/L (22-30); CHLORIDE 97 mmol/L (98-107); CREATININE RESULT 6.03 mg/dL (0.52-1.25); GLUCOSE 111 mg/dL (75-110); POTASSIUM 3.3 mmol/L (3.6-5.0); SODIUM 137.5 mmol/L (137-145); TOTAL PROTEIN 6.3 g/dL (6.3-8.2)
[2017-03-18] MEDS ORDERED: PROMETHAZINE HCL INJ 25 MG/1 ML VIAL IM ONE (02:43)
[2017-03-18] MEDS ORDERED: POTASSIUM CHLORIDE 10 MEQ TABLET.SA PO ONE (03:42)
[2017-03-18] MEDS: MAGNESIUM SULFATE/D5W 1 GM/100 ML RTUPB IV SCH ×2 (03:54→05:08)
--- NOTE | 2017-03-18 04:06 | RADIOLOGY REPORT (SQ) ---
EXAM DESCRIPTION: ACUTE ABDOMEN SERIES CLINICAL HISTORY: 51 years, Female, recurrent vomiting COMPARISON: None. FINDINGS: Adequate lung volumes, clear parenchyma, normal cardiac silhouette, right upper abdominal clips, paucity of bowel gas, no obstruction, and intact bony structures. IMPRESSION: No acute findings. 2011 [employer]- All Rights Reserved
--- NOTE | 2017-03-18 04:53 | RADIOLOGY REPORT (SQ) ---
EXAM DESCRIPTION: CT ABD/PELVIS NO ORAL OR IV CLINICAL HISTORY: 51 years Female, vomiting, diarrhea COMPARISON: 09/06/2016. CR, same day. TECHNIQUE: No contrast. This exam was performed according to our departmental dose-optimization program, which includes automated exposure control, adjustment of the mA and/or kV according to patient size and/or use of iterative reconstruction technique. FINDINGS: Moderate diffuse bowel wall thickening and nondistention extends from the hepatic flexure to the proximal sigmoid consistent with moderate colitis. No significant free fluid. Cholecystectomy clips. Right pelvic kidney. No evidence of appendicitis; appendix is not discerned. Lung bases, unenhanced [id number] structures, and musculoskeletal appear otherwise grossly intact. IMPRESSION: Moderate diffuse colitis pattern. Infectious, inflammatory, neoplastic processes are in the differential diagnosis.
[2017-03-18] MEDS ORDERED: PROMETHAZINE HCL 25 MG TABLET PO PRN (05:14)
[2017-03-18] MEDS ORDERED: ACETAMINOPHEN 325 MG TABLET PO PRN (05:14)
[2017-03-18] MEDS ORDERED: LEVOTHYROXINE SODIUM 0.05 MG TABLET PO SCH (06:00)
[2017-03-18] MEDS ORDERED: METRONIDAZOLE 500 MG TABLET PO ONE (07:00)
--- NOTE | 2017-03-18 07:21 | PDOC H&P ---
History of Present Illness Admission Date/PCP: 03/18/17 05:20 Patient complains of: Abdominal pain and diarrhea History of Present Illness: SHOSHANA BOWMAN is a 51 year old female with a past medical history of schizophrenia, diabetes, hypertension and recent acute renal failure with gastroenteritis 1 month ago. She presents with abdominal pain and nonbloody diarrhea similar to previous presentation. She denies fever chills but has had nausea without vomiting. She believes she returned to baseline when was hydrated and taken off of Lasix and metformin. In the emergency room she is found to have a creatinine of [address] of the abdomen pelvis with pancolitis. She receives IV fluids, symptomatic management and referred to the hospitalist for admission. Past Medical History Cardiac Medical History: Reports: Atrial Fibrillation, Hyperlipidema Denies: Coronary Artery Disease, Myocardial Infarction, Hypertension Pulmonary Medical History: Reports: Asthma, Bronchitis Denies: Chronic Obstructive Pulmonary Disease (COPD), Pneumonia Neurological Medical History: Denies: Seizures Endocrine Medical History: Reports: Diabetes Mellitus Type 2 - borderline, Hypothyroidism GI Medical History: Reports: Gastroesophageal Reflux Disease Musculoskeltal Medical History: Reports: Arthritis Psychiatric Medical History: Reports: Depression, Schizoaffective Disorder Hematology: Denies: Anemia Past Surgical History Past Surgical History: Reports: Cholecystectomy, Tubal Ligation Denies: Hysterectomy Social History Information Source: Patient, [facility] Records Lives with: Family Smoking Status: Unknown if Ever Smoked Frequency of Alcohol Use: None Hx Recreational Drug Use: No Drugs: None Hx Prescription Drug Abuse: No - Advance Directive Resuscitation Status: Full Code Family History Family History: CAD, CVA, DM, Hyperlipidemia, Hypertension, Malignancy, Thyroid Disfunction, Other Parental Family History Reviewed: Yes Children Family History Reviewed: Yes Sibling(s) Family History Reviewed.: Yes Medication/Allergy Home Medications: Amitriptyline HCl [Elavil 25 mg Tablet] 2 tab PO QHS 02/08/17 Furosemide [Lasix 40 mg Tablet] 1 tab PO DAILY 02/08/17 Metformin HCl [Glucophage] 1 tab PO BID 02/08/17 Zolpidem Tartrate [Ambien] 1 tab PO QHS 02/08/17 Alprazolam [Xanax Xr 1 mg Tablet Extended Release] 1 tab PO TID 03/18/17 Levothyroxine Sodium [Synthroid 50 Mcg Tablet] 1 tab PO DAILY 12/20/17 Allergies/Adverse Reactions: tramadol Allergy (Intermediate, Verified 03/18/17 01:09) AMS Penicillins Allergy (Mild, Verified 03/18/17 01:09) rash Sulfa (Sulfonamide Antibiotics) Allergy (Mild, Verified 03/18/17 01:09) rash aspirin Allergy (Verified 03/18/17 01:09) Review of Systems Constitutional: PRESENT: as per HPI, anorexia, fatigue. ABSENT: fever(s), headache(s), night sweats, weakness Eyes: ABSENT: visual disturbances Ears: ABSENT: hearing changes Cardiovascular: ABSENT: chest pain, dyspnea on exertion, edema, orthropnea, palpitations Respiratory: ABSENT: cough, hemoptysis Gastrointestinal: PRESENT: as per HPI, abdominal pain, bloating, diarrhea, nausea. ABSENT: coffee ground emesis, constipation, heartburn, hematemesis, hematochezia, melena, vomiting Genitourinary: ABSENT: dysuria, hematuria Musculoskeletal: ABSENT: joint swelling Integumentary: ABSENT: rash, wounds Neurological: ABSENT: abnormal gait, abnormal speech, confusion, dizziness, focal weakness, syncope Psychiatric: ABSENT: anxiety, depression, homidical ideation, suicidal ideation Endocrine: ABSENT: cold intolerance, heat intolerance, polydipsia, polyuria Hematologic/Lymphatic: ABSENT: easy bleeding, easy bruising Physical Exam Vital Signs: Temp Pulse Resp BP Pulse Ox 97.3 F 90 16 131/70 H 95 03/18/17 06:00 03/18/17 06:00 03/18/17 06:00 03/18/17 06:00 03/18/17 06:00 Intake & Output 03/16/17 03/17/17 03/18/17 11:59 11:59 11:59 Weight 100 kg General appearance: PRESENT: mild distress, obese, well-developed, well- nourished Head exam: PRESENT: atraumatic, normocephalic Eye exam: PRESENT: conjunctiva pink, EOMI, PERRLA. ABSENT: scleral icterus Ear exam: PRESENT: normal external ear exam Mouth exam: PRESENT: moist, tongue midline Neck exam: ABSENT: carotid bruit, JVD, lymphadenopathy, thyromegaly Respiratory exam: PRESENT: clear to auscultation denis. ABSENT: rales, rhonchi, wheezes Cardiovascular exam: PRESENT: RRR. ABSENT: diastolic murmur, rubs, systolic murmur Pulses: PRESENT: normal dorsalis pedis pul Vascular exam: PRESENT: normal capillary refill GI/Abdominal exam: PRESENT: distended, hyperactive bowel sounds, normal bowel sounds, soft, tenderness. ABSENT: ascites, firm, guarding, mass, organolmegaly , rebound Rectal exam: PRESENT: deferred Extremities exam: PRESENT: full ROM. ABSENT: calf tenderness, clubbing, pedal edema Neurological exam: PRESENT: alert, awake, oriented to person, oriented to place , oriented to time, oriented to situation, CN II-XII grossly intact. ABSENT: motor sensory deficit Psychiatric exam: PRESENT: appropriate affect, normal mood. ABSENT: homicidal ideation, suicidal ideation Skin exam: PRESENT: dry, intact, warm. ABSENT: cyanosis, rash Results Laboratory Results: 03/18/17 05:30 Creatine Kinase 595 H Impressions: Acute Abdomen Series 03/18/17 00:27 IMPRESSION: No acute findings. 2010 [employer]- All Rights Reserved Abdomen/Pelvis CT 03/18/17 03:59 IMPRESSION: Moderate diffuse colitis pattern. Infectious, inflammatory, neoplastic processes are in the differential diagnosis. Assessment & Plan - Diagnosis (1) Colitis Is this a current diagnosis for this admission?: Yes Plan: Malignant versus infectious versus ulcerative. Empiric Flagyl consider inpatient GI consult. Follow-up CBC and ESR (2) Acute renal failure Qualifiers: Acute renal failure type: unspecified Qualified Code(s): N17.9 - Acute kidney failure, unspecified Is this a current diagnosis for this admission?: Yes Plan: Nonoliguric, complicated hypovolemia with diarrhea, diuretic and metformin. Patient responded previously to volume resuscitation and discontinuation of Lasix and metformin. IV fluid challenge initiated , avoiding nephrotoxic meds and doses. No evidence for obstruction consider nephrology consult (3) Hypokalemia Is this a current diagnosis for this admission?: Yes Plan: Secondary to diarrhea repletion and reevaluation of chemistry (4) Hypomagnesemia Is this a current diagnosis for this admission?: Yes Plan: Secondary to diarrhea repletion and reevaluation chemistry (5) Nausea vomiting and diarrhea Is this a current diagnosis for this admission?: Yes Plan: Secondary to colitis, symptomatic management (6) Diabetes Qualifiers: Is this a current diagnosis for this admission?: Yes Plan: Hold metformin sliding scale insulin - Time Time Spent: 50 to 70 Minutes - Inpatient Certification Medical Necessity: Need Close Monitoring Due to Risk of Patient Decompensation
[2017-03-18] MEDS: HEPARIN SOD (PORCINE) 5,000 UNIT/ML 1 ML SYRINGE SUBCUT SCH ×3 (08:53→21:32)
[2017-03-18] MEDS ORDERED: (PENDING PHARMACY ID) (Alprazolam [Xanax Xr 1 Mg Tablet Extended Release] 1 TAB) PO SCH (10:00)
--- NOTE | 2017-03-18 12:31 | PDOC PROGRESS REPORT ---
Subjective Progress Note for:: 03/18/17 Subjective:: Complains of some nausea. Reason For Visit: ARF, COLITIS Physical Exam Vital Signs: Temp Pulse Resp BP Pulse Ox 98.4 F 87 18 116/52 L 97 03/18/17 11:51 03/18/17 11:51 03/18/17 11:51 03/18/17 11:51 03/18/17 11:51 Intake & Output 03/17/17 03/18/17 03/19/17 06:59 06:59 06:59 Weight 100 kg General appearance: PRESENT: no acute distress Eye exam: PRESENT: conjunctiva pink. ABSENT: scleral icterus Mouth exam: PRESENT: moist, tongue midline Neck exam: ABSENT: JVD Respiratory exam: PRESENT: clear to auscultation denis. ABSENT: rales, rhonchi, wheezes Cardiovascular exam: PRESENT: RRR. ABSENT: diastolic murmur, rubs, systolic murmur GI/Abdominal exam: PRESENT: normal bowel sounds, soft, tenderness - Mild diffuse tenderness.. ABSENT: distended, guarding, mass, organolmegaly, rebound Extremities exam: ABSENT: calf tenderness, clubbing, pedal edema Neurological exam: PRESENT: alert, awake, oriented to person, oriented to place , oriented to time, oriented to situation, CN II-XII grossly intact. ABSENT: motor sensory deficit Psychiatric exam: PRESENT: appropriate affect Skin exam: PRESENT: dry, intact, warm. ABSENT: cyanosis, rash Results Laboratory Results: 03/18/17 05:30 Creatine Kinase 595 H Impressions: Acute Abdomen Series 03/18/17 00:27 IMPRESSION: No acute findings. 2010 [employer]- All Rights Reserved Abdomen/Pelvis CT 03/18/17 03:59 IMPRESSION: Moderate diffuse colitis pattern. Infectious, inflammatory, neoplastic processes are in the differential diagnosis. Assessment & Plan - Diagnosis (1) Acute renal failure Qualifiers: Acute renal failure type: unspecified Qualified Code(s): N17.9 - Acute kidney failure, unspecified Is this a current diagnosis for this admission?: Yes Plan: Most likely secondary to decreased p.o. intake related to her abdominal symptoms. We will continue with IV fluids. (2) Colitis Is this a current diagnosis for this admission?: Yes Plan: Has been started on Flagyl. (3) Anxiety Is this a current diagnosis for this admission?: Yes Plan: Continue with Elavil and Xanax. (4) Hypertension Qualifiers: Hypertension type: essential hypertension Qualified Code(s): I10 - Essential (primary) hypertension Is this a current diagnosis for this admission?: Yes (5) Hypothyroidism Is this a current diagnosis for this admission?: Yes Plan: Patient has not been compliant with her Synthroid. It has been restarted. (6) Paroxysmal atrial fibrillation Is this a current diagnosis for this admission?: Yes Plan: Patient is currently in a normal sinus rhythm. (7) Schizoaffective disorder Is this a current diagnosis for this admission?: Yes Plan: Continue with Xanax and Elavil. (8) Type 2 diabetes mellitus Qualifiers: Chronic kidney disease stage: unspecified stage Is this a current diagnosis for this admission?: Yes Plan: Cover with sliding scale insulin. - Time Time Spent with patient: 25-34 minutes - Inpatient Certification Medical Necessity: Need For IV Fluids
[2017-03-18] MEDS: METRONIDAZOLE 500 MG TABLET PO SCH ×3 (16:06→23:45)
[2017-03-18] MEDS: NORMAL SALINE 1000 ML 1,000 ML IV SCH ×3 (16:07→23:42)
[2017-03-18] MEDS ORDERED: ONDANSETRON HCL INJ/PF 4 MG/2 ML SDV IV PRN (18:33)
[2017-03-18] MEDS ORDERED: ALBUTEROL SULFATE HFA (90 MCG/PUFF) 8 GM MDI (1 MDI/ER DISP) IH PRN (18:36)
[2017-03-18] MEDS ORDERED: ALBUTEROL SULFATE HFA (90 MCG/PUFF) 200 PUFF/8.5 GM MDI IH PRN (18:43)
[2017-03-18] MEDS: ZOLPIDEM TARTRATE 5 MG TABLET PO SCH (21:22)
[2017-03-18] MEDS: METOPROLOL SUCCINATE 25 MG TAB.SR.24H PO SCH (21:23)
[2017-03-18] MEDS: ALPRAZOLAM 0.5 MG TABLET PO SCH (21:23)
[2017-03-18] MEDS: AMITRIPTYLINE HCL 25 MG TABLET PO SCH (21:24)
[2017-03-18] MEDS: TIZANIDINE HCL 4 MG TABLET PO SCH (21:25)
[2017-03-18] MEDS: FLUTICASONE/SALMETEROL DISKUS 250-50 MCG/DOSE IH SCH (21:33)
[2017-03-18] MEDS ORDERED: AMITRIPTYLINE HCL 25 MG TABLET PO SCH (22:00)
[2017-03-18] MEDS ORDERED: APIXABAN 5 MG TABLET PO SCH (22:00)
[2017-03-18] MEDS ORDERED: (PENDING PHARMACY ID) (Zolpidem Tartrate [Ambien] 10 MG) PO SCH (22:00)
[2017-03-19] MEDS: TIZANIDINE HCL 4 MG TABLET PO SCH ×3 (05:34→21:44)
[2017-03-19] MEDS: ALPRAZOLAM 0.5 MG TABLET PO SCH ×3 (05:34→21:44)
[2017-03-19] MEDS: METRONIDAZOLE 500 MG TABLET PO SCH ×4 (05:35→23:50)
[2017-03-19] MEDS: LEVOTHYROXINE SODIUM 0.112 MG TABLET PO SCH (05:35)
[2017-03-19] MEDS: LEVOTHYROXINE SODIUM 0.025 MG TABLET PO SCH (05:35)
[2017-03-19] MEDS: HEPARIN SOD (PORCINE) 5,000 UNIT/ML 1 ML SYRINGE SUBCUT SCH ×3 (05:43→21:39)
[2017-03-19] MEDS ORDERED: LEVOTHYROXINE SODIUM 137 MCG PO SCH (06:00)
[2017-03-19 06:06] LABS: ABSOLUTE BASOPHILS # (AUTO) 0.1 10^3/uL (0.0-0.2); ABSOLUTE LYMPHOCYTES (AUTO) 2.1 10^3/uL (0.5-4.7); ABSOLUTE MONOCYTES (AUTO) 0.3 10^3/uL (0.1-1.4); ABSOLUTE NEUT (AUTO) 2.4 10^3/uL (1.7-8.2); BASOPHILS % (AUTO) 1.2 % (0-2); EOSINOPHILS % (AUTO) 0.4 % (0-6); HEMATOCRIT 30.9 % (36.0-47.0); HEMOGLOBIN 10.3 g/dL (12.0-15.5); LYMPHOCYTES % (AUTO) 42.3 % (13-45); MEAN CORPUSCULAR HEMOGLOBIN 31.6 pg (27.0-33.4); MEAN CORPUSCULAR HGB CONC 33.4 g/dL (32.0-36.0); MEAN CORPUSCULAR VOLUME 94 fl (80-97); MONOCYTES % (AUTO) 6.5 % (3-13); RED BLOOD COUNT 3.28 10^6/uL (3.72-5.28); SEGMENTED NEUTROPHILS % (AUTO) 49.6 % (42-78); WHITE BLOOD COUNT 4.9 10^3/uL (4.0-10.5)
[2017-03-19 06:11] LABS: ANION GAP 10 (5-19); BLOOD UREA NITROGEN 21 mg/dL (7-20); CALCIUM 8.2 mg/dL (8.4-10.2); CARBON DIOXIDE 24 mmol/L (22-30); CHLORIDE 106 mmol/L (98-107); CREATININE RESULT 3.68 mg/dL (0.52-1.25); GLUCOSE 104 mg/dL (75-110); POTASSIUM 3.6 mmol/L (3.6-5.0)
[2017-03-19] MEDS ORDERED: FUROSEMIDE 40 MG TABLET PO SCH (08:00)
[2017-03-19] MEDS ORDERED: NORMAL SALINE 1000 ML 1,000 ML IV PRN (09:37)
[2017-03-19] MEDS ORDERED: METFORMIN HCL 500 MG TABLET PO SCH (10:00)
[2017-03-19] MEDS ORDERED: SPIRONOLACTONE 25 MG TABLET PO SCH (10:00)
[2017-03-19] MEDS ORDERED: METOPROLOL SUCCINATE 25 MG TAB.SR.24H PO SCH (10:00)
[2017-03-19] MEDS ORDERED: (PENDING PHARMACY ID) (Desvenlafaxine Succinate 100 MG) PO SCH (10:00)
[2017-03-19] MEDS ORDERED: (PENDING PHARMACY ID) (Tizanidine Hcl [Zanaflex] 6 MG) PO SCH (10:00)
[2017-03-19] MEDS: METOPROLOL SUCCINATE 25 MG TAB.SR.24H PO SCH ×2 (10:35→21:44)
[2017-03-19] MEDS: FLUTICASONE/SALMETEROL DISKUS 250-50 MCG/DOSE IH SCH ×2 (10:46→21:40)
[2017-03-19] MEDS: LAMOTRIGINE 25 MG TAB.CHEW PO SCH (10:46)
[2017-03-19] MEDS: NORMAL SALINE 1000 ML 1,000 ML IV PRN ×2 (10:46→17:15)
--- NOTE | 2017-03-19 13:16 | PDOC PROGRESS REPORT ---
Subjective Progress Note for:: 03/19/17 Subjective:: Denies any complaints. Reason For Visit: ARF, COLITIS Physical Exam Vital Signs: Temp Pulse Resp BP Pulse Ox 97.8 F 72 16 100/52 L 94 03/19/17 08:00 03/19/17 08:00 03/19/17 08:00 03/19/17 08:00 03/19/17 08:00 Intake & Output 03/18/17 03/19/17 03/20/17 06:59 06:59 06:59 Intake Total 4900 Output Total 2350 Balance 2550 Weight 100 kg 105 kg General appearance: PRESENT: no acute distress Eye exam: PRESENT: conjunctiva pink. ABSENT: scleral icterus Mouth exam: PRESENT: moist, tongue midline Neck exam: ABSENT: JVD Respiratory exam: PRESENT: clear to auscultation denis. ABSENT: rales, rhonchi, wheezes Cardiovascular exam: PRESENT: RRR. ABSENT: diastolic murmur, rubs, systolic murmur GI/Abdominal exam: PRESENT: normal bowel sounds, soft. ABSENT: distended, guarding, mass, organolmegaly, rebound, tenderness Extremities exam: ABSENT: calf tenderness, clubbing, pedal edema Neurological exam: PRESENT: alert, awake, oriented to person, oriented to place , oriented to time, oriented to situation, CN II-XII grossly intact. ABSENT: motor sensory deficit Psychiatric exam: PRESENT: appropriate affect Skin exam: PRESENT: dry, intact, warm. ABSENT: cyanosis, rash Results Laboratory Results: 03/19/17 04:53 03/19/17 04:58 03/19/17 03/19/17 04:53 04:58 WBC 4.9 RBC 3.28 L Hgb 10.3 L Hct 30.9 L MCV 94 MCH 31.6 MCHC 33.4 RDW 14.0 Plt Count 246 Seg Neutrophils % 49.6 Lymphocytes % 42.3 Monocytes % 6.5 Eosinophils % 0.4 Basophils % 1.2 Absolute Neutrophils 2.4 Absolute Lymphocytes 2.1 Absolute Monocytes 0.3 Absolute Eosinophils 0.0 Absolute Basophils 0.1 Sodium 140.0 Potassium 3.6 Chloride 106 Carbon Dioxide 24 Anion Gap 10 BUN 21 H Creatinine 3.68 H Est GFR ( Amer) 16 L Est GFR (Non-Af Amer) 13 L Glucose 104 Calcium 8.2 L 03/18/17 05:30 Creatine Kinase 595 H Impressions: Acute Abdomen Series 03/18/17 00:27 IMPRESSION: No acute findings. 2010 [employer]- All Rights Reserved Abdomen/Pelvis CT 03/18/17 03:59 IMPRESSION: Moderate diffuse colitis pattern. Infectious, inflammatory, neoplastic processes are in the differential diagnosis. Assessment & Plan - Diagnosis (1) Acute renal failure Qualifiers: Acute renal failure type: unspecified Qualified Code(s): N17.9 - Acute kidney failure, unspecified Is this a current diagnosis for this admission?: Yes Plan: Creatinine continues to improve. Most likely secondary to decreased p.o. intake related to her abdominal symptoms. We will continue with IV fluids. (2) Colitis Is this a current diagnosis for this admission?: Yes Plan: Continue with Flagyl. Will advance her diet today. (3) Anxiety Is this a current diagnosis for this admission?: Yes Plan: Continue with Elavil and Xanax. (4) Hypertension Qualifiers: Hypertension type: essential hypertension Qualified Code(s): I10 - Essential (primary) hypertension Is this a current diagnosis for this admission?: Yes (5) Hypothyroidism Is this a current diagnosis for this admission?: Yes Plan: Patient has not been compliant with her Synthroid. It has been restarted. (6) Paroxysmal atrial fibrillation Is this a current diagnosis for this admission?: Yes Plan: Patient is currently in a normal sinus rhythm. (7) Schizoaffective disorder Is this a current diagnosis for this admission?: Yes Plan: Continue with Xanax and Elavil. (8) Type 2 diabetes mellitus Qualifiers: Chronic kidney disease stage: unspecified stage Is this a current diagnosis for this admission?: Yes Plan: Cover with sliding scale insulin. - Time Time Spent with patient: 25-34 minutes - Inpatient Certification Medical Necessity: Need Close Monitoring Due to Risk of Patient Decompensation
[2017-03-19] MEDS: SIMVASTATIN 40 MG TABLET PO SCH (17:18)
[2017-03-19] MEDS: ZOLPIDEM TARTRATE 5 MG TABLET PO SCH (21:44)
[2017-03-19] MEDS: AMITRIPTYLINE HCL 25 MG TABLET PO SCH (21:44)
[2017-03-20] MEDS ORDERED: NORMAL SALINE 1000 ML 1,000 ML IV ONE (02:45)
[2017-03-20 05:09] LABS: HEMATOCRIT 25.1 % (36.0-47.0); HEMOGLOBIN 8.6 g/dL (12.0-15.5); HGB HCT DIFFERENCE 0.7; MEAN CORPUSCULAR HGB CONC 34.2 g/dL (32.0-36.0); MEAN CORPUSCULAR VOLUME 94 fl (80-97); RED BLOOD COUNT 2.69 10^6/uL (3.72-5.28); RED CELL DISTRIBUTION WIDTH 13.9 % (11.5-14.0); WHITE BLOOD COUNT 4.5 10^3/uL (4.0-10.5)
[2017-03-20 05:18] LABS: ANION GAP 10 (5-19); BLOOD UREA NITROGEN 23 mg/dL (7-20); CALCIUM 8.6 mg/dL (8.4-10.2); CARBON DIOXIDE 22 mmol/L (22-30); CHLORIDE 109 mmol/L (98-107); CREATININE RESULT 2.35 mg/dL (0.52-1.25); GLUCOSE 104 mg/dL (75-110); POTASSIUM 3.7 mmol/L (3.6-5.0); SODIUM 141.3 mmol/L (137-145)
[2017-03-20] MEDS: TIZANIDINE HCL 4 MG TABLET PO SCH ×3 (05:23→21:10)
[2017-03-20] MEDS: HEPARIN SOD (PORCINE) 5,000 UNIT/ML 1 ML SYRINGE SUBCUT SCH ×3 (05:29→21:10)
[2017-03-20] MEDS: METRONIDAZOLE 500 MG TABLET PO SCH ×4 (05:29→23:44)
[2017-03-20] MEDS: ALPRAZOLAM 0.5 MG TABLET PO SCH ×3 (05:29→21:11)
[2017-03-20] MEDS: LEVOTHYROXINE SODIUM 0.112 MG TABLET PO SCH (05:29)
[2017-03-20] MEDS: LEVOTHYROXINE SODIUM 0.025 MG TABLET PO SCH (05:29)
[2017-03-20 05:39] LABS: BASOPHILS % (MANUAL) 0 % (0-2); EOSINOPHILS % (MANUAL) 1 % (0-6); LYMPHOCYTES % (MANUAL) 33 % (13-45); RBC MORPHOLOGY COMMENT NORMO-CYTIC/CHROMIC; TOTAL CELLS COUNTED 100; TOXIC GRANULATION SLIGHT
[2017-03-20] MEDS: LAMOTRIGINE 25 MG TAB.CHEW PO SCH (10:10)
[2017-03-20] MEDS: FLUTICASONE/SALMETEROL DISKUS 250-50 MCG/DOSE IH SCH ×2 (10:11→21:11)
[2017-03-20] MEDS: METOPROLOL SUCCINATE 25 MG TAB.SR.24H PO SCH ×2 (10:12→21:14)
--- NOTE | 2017-03-20 10:29 | PDOC PROGRESS REPORT ---
Subjective Progress Note for:: 03/20/17 Subjective:: Denies any complaints. Had some urinary incontinence earlier this morning Reason For Visit: ARF, COLITIS Physical Exam Vital Signs: Temp Pulse Resp BP Pulse Ox 98.1 F 67 17 103/48 L 97 03/20/17 04:30 03/20/17 07:00 03/20/17 04:30 03/20/17 04:30 03/20/17 04:30 Intake & Output 03/19/17 03/20/17 03/21/17 06:59 06:59 06:59 Intake Total 4900 8712 Output Total 2350 2510 Balance 2550 6202 Weight 105 kg 105 kg General appearance: PRESENT: no acute distress Eye exam: PRESENT: conjunctiva pink. ABSENT: scleral icterus Mouth exam: PRESENT: moist, tongue midline Neck exam: ABSENT: JVD Respiratory exam: PRESENT: clear to auscultation denis. ABSENT: rales, rhonchi, wheezes Cardiovascular exam: PRESENT: RRR. ABSENT: diastolic murmur, rubs, systolic murmur GI/Abdominal exam: PRESENT: normal bowel sounds, soft. ABSENT: distended, guarding, mass, organolmegaly, rebound, tenderness Extremities exam: ABSENT: calf tenderness, clubbing, pedal edema Neurological exam: PRESENT: alert, awake, oriented to person, oriented to place , oriented to time, oriented to situation, CN II-XII grossly intact. ABSENT: motor sensory deficit Psychiatric exam: PRESENT: flat affect Skin exam: PRESENT: dry, intact, warm. ABSENT: cyanosis, rash Results Laboratory Results: 03/20/17 04:48 03/20/17 04:48 03/20/17 03/20/17 04:48 04:48 WBC 4.5 RBC 2.69 L Hgb 8.6 L Hct 25.1 L MCV 94 MCH 32.0 MCHC 34.2 RDW 13.9 Plt Count 220 Seg Neutrophils % Not Reportable Lymphocytes % Not Reportable Monocytes % Not Reportable Eosinophils % Not Reportable Basophils % Not Reportable Absolute Neutrophils Not Reportable Absolute Lymphocytes Not Reportable Absolute Monocytes Not Reportable Absolute Eosinophils Not Reportable Absolute Basophils Not Reportable Sodium 141.3 Potassium 3.7 Chloride 109 H Carbon Dioxide 22 Anion Gap 10 BUN 23 H Creatinine 2.35 H Est GFR ( Amer) 26 L Est GFR (Non-Af Amer) 22 L Glucose 104 Calcium 8.6 03/18/17 05:30 Creatine Kinase 595 H Impressions: Acute Abdomen Series 03/18/17 00:27 IMPRESSION: No acute findings. 2010 [email or web address]- All Rights Reserved Abdomen/Pelvis CT 03/18/17 03:59 IMPRESSION: Moderate diffuse colitis pattern. Infectious, inflammatory, neoplastic processes are in the differential diagnosis. Assessment & Plan - Diagnosis (1) Acute renal failure Qualifiers: Acute renal failure type: unspecified Qualified Code(s): N17.9 - Acute kidney failure, unspecified Is this a current diagnosis for this admission?: Yes Plan: Creatinine continues to improve. Most likely secondary to decreased p.o. intake related to her abdominal symptoms. We will continue with IV fluids. (2) Colitis Is this a current diagnosis for this admission?: Yes Plan: Continue with Flagyl. (3) Anxiety Is this a current diagnosis for this admission?: Yes Plan: Continue with Elavil and Xanax. (4) Hypertension Qualifiers: Hypertension type: essential hypertension Qualified Code(s): I10 - Essential (primary) hypertension Is this a current diagnosis for this admission?: Yes (5) Hypothyroidism Is this a current diagnosis for this admission?: Yes Plan: Continue Synthroid (6) Paroxysmal atrial fibrillation Is this a current diagnosis for this admission?: Yes Plan: Patient is currently in a normal sinus rhythm. (7) Schizoaffective disorder Is this a current diagnosis for this admission?: Yes Plan: Continue with Xanax and Elavil. (8) Type 2 diabetes mellitus Qualifiers: Chronic kidney disease stage: unspecified stage Is this a current diagnosis for this admission?: Yes Plan: Cover with sliding scale insulin. - Time Time Spent with patient: 15-24 minutes - Inpatient Certification Medical Necessity: Need For IV Fluids
[2017-03-20] MEDS: SIMVASTATIN 40 MG TABLET PO SCH (17:02)
[2017-03-20] MEDS: AMITRIPTYLINE HCL 25 MG TABLET PO SCH (21:11)
[2017-03-20] MEDS: ZOLPIDEM TARTRATE 5 MG TABLET PO SCH (21:12)
[2017-03-21] MEDS: METRONIDAZOLE 500 MG TABLET PO SCH ×2 (05:00→11:18)
[2017-03-21] MEDS: LEVOTHYROXINE SODIUM 0.025 MG TABLET PO SCH (05:00)
[2017-03-21] MEDS: HEPARIN SOD (PORCINE) 5,000 UNIT/ML 1 ML SYRINGE SUBCUT SCH (05:00)
[2017-03-21] MEDS: LEVOTHYROXINE SODIUM 0.112 MG TABLET PO SCH (05:00)
[2017-03-21] MEDS: ALPRAZOLAM 0.5 MG TABLET PO SCH (05:00)
[2017-03-21] MEDS: TIZANIDINE HCL 4 MG TABLET PO SCH (05:01)
[2017-03-21 06:25] LABS: ANION GAP 10 (5-19); BLOOD UREA NITROGEN 17 mg/dL (7-20); CALCIUM 8.9 mg/dL (8.4-10.2); CARBON DIOXIDE 20 mmol/L (22-30); CHLORIDE 111 mmol/L (98-107); CREATININE RESULT 1.61 mg/dL (0.52-1.25); GLUCOSE 97 mg/dL (75-110); POTASSIUM 3.7 mmol/L (3.6-5.0); SODIUM 141.2 mmol/L (137-145)
[2017-03-21] MEDS: FLUTICASONE/SALMETEROL DISKUS 250-50 MCG/DOSE IH SCH (10:44)
[2017-03-21] MEDS: LAMOTRIGINE 25 MG TAB.CHEW PO SCH (10:45)
[2017-03-21] MEDS: METOPROLOL SUCCINATE 25 MG TAB.SR.24H PO SCH (10:46)
[2017-03-21 11:59] VITALS: BP 111/65
--- NOTE | 2017-03-21 13:40 | PDOC DISCHARGE SUMMARY ---
General - Admit/Disc Date/PCP Admission Date/Primary Care Provider: 03/18/17 05:20 Discharge Date: 03/21/17 - Discharge Diagnosis (1) Acute renal failure Is this a current diagnosis for this admission?: Yes Summary: Most likely secondary to dehydration. (2) Colitis Is this a current diagnosis for this admission?: Yes Summary: Resolving with Flagyl. (3) Anxiety Is this a current diagnosis for this admission?: Yes (4) Hypertension Is this a current diagnosis for this admission?: Yes (5) Hypothyroidism Is this a current diagnosis for this admission?: Yes (6) Paroxysmal atrial fibrillation Is this a current diagnosis for this admission?: Yes (7) Schizoaffective disorder Is this a current diagnosis for this admission?: Yes (8) Type 2 diabetes mellitus Is this a current diagnosis for this admission?: Yes - Additional Information Resuscitation Status: Full Code Discharge Diet: Cardiac Discharge Activity: Activity As Tolerated Prescriptions: Metronidazole [Flagyl 500 mg Tablet] 500 mg PO Q6 #20 tablet Home Medications: Albuterol Sulfate [Ventolin Hfa] 1 puff IH Q4HP PRN 03/18/17 Alprazolam [Xanax] 1 mg PO TID 03/18/17 Amitriptyline HCl [Elavil 25 mg Tablet] 50 mg PO QHS 03/18/17 Apixaban [Eliquis 5 mg Tablet] 5 mg PO Q12 03/18/17 Desvenlafaxine Succinate [Pristiq ER 100 mg Tab.sr] 100 mg PO DAILY 03/18/17 Fluticasone/Salmeterol [Advair 250-50 Diskus 14 Dose/Diskus] 1 puff IH Q12 03/18 Lamotrigine [Lamictal] 75 mg PO DAILY 03/18/17 Levothyroxine Sodium [Tirosint] 137 mcg PO Q6AM 03/18/17 Metformin HCl [Glucophage 500 mg Tablet] 1,000 mg PO BID 03/18/17 Metoprolol Succinate [Toprol Xl 25 mg Tab.sr] 25 mg PO BID 03/18/17 Simvastatin [Zocor 40 mg Tablet] 40 mg PO QPM 03/18/17 Spironolactone [Aldactone 25 mg Tablet] 25 mg PO DAILY 03/18/17 Tizanidine HCl [Zanaflex] 6 mg PO TID 03/18/17 Zolpidem Tartrate [Ambien] 10 mg PO QHS 03/18/17 Metronidazole [Flagyl 500 mg Tablet] 500 mg PO Q6 #20 tablet 03/21/17 History of Present Illness History of Present Illness: SHOSHANA BOWMAN is a 51 year old female who has a history of diabetes, hypertension and recent acute renal failure after gastroenteritis who presented with abdominal pain and nonbloody diarrhea that was similar to her previous presentation. The patient had a CT scan which showed findings suggestive of acute colitis. The patient also was found to have an elevated creatinine of 6. The patient did not have any fevers or chills. Patient is admitted for treatment of acute renal failure. Hospital Course Hospital Course: 51-year-old female who presented with acute renal failure felt to be secondary to decreased p.o. intake with dehydration. The patient had evidence for colitis and was started on Flagyl. The patient's creatinine when she presented with 6. With IV fluids it was down to 1.6 on the day of discharge. She was started on Flagyl for treatment of her colitis and she tolerated this well and had resolution of her abdominal pain. The patient also has diabetes and had been on metformin. Metformin was stopped because of her elevated creatinine. She may be able to go up on that again once her renal failure has completely resolved. The patient was tolerating a diet without difficulty and was felt that she was stable for discharge home. Physical Exam Vital Signs: Temp Pulse Resp BP Pulse Ox 97.7 F 97 16 111/65 93 03/21/17 11:09 03/21/17 11:58 03/21/17 11:09 03/21/17 11:58 03/21/17 11:09 Intake & Output 03/20/17 03/21/17 03/22/17 06:59 06:59 06:59 Intake Total 8712 5130 Output Total 2510 3000 Balance 6202 2130 Weight 105 kg 105 kg General appearance: PRESENT: no acute distress Eye exam: PRESENT: conjunctiva pink. ABSENT: scleral icterus Mouth exam: PRESENT: moist, tongue midline Neck exam: ABSENT: JVD Respiratory exam: PRESENT: clear to auscultation denis. ABSENT: rales, rhonchi, wheezes Cardiovascular exam: PRESENT: RRR. ABSENT: diastolic murmur, rubs, systolic murmur GI/Abdominal exam: PRESENT: normal bowel sounds, soft. ABSENT: distended, guarding, mass, organolmegaly, rebound, tenderness Extremities exam: ABSENT: calf tenderness, clubbing, pedal edema Neurological exam: PRESENT: alert, awake, oriented to person, oriented to place , oriented to time, oriented to situation, CN II-XII grossly intact. ABSENT: motor sensory deficit Psychiatric exam: PRESENT: appropriate affect Skin exam: PRESENT: dry, intact, warm. ABSENT: cyanosis, rash Results Laboratory Results: 03/20/17 04:48 03/21/17 05:15 03/21/17 05:15 Sodium 141.2 Potassium 3.7 Chloride 111 H Carbon Dioxide 20 L Anion Gap 10 BUN 17 Creatinine 1.61 H Est GFR ( Amer) 41 L Est GFR (Non-Af Amer) 34 L Glucose 97 Calcium 8.9 03/18/17 05:30 Creatine Kinase 595 H Impressions: Acute Abdomen Series 03/18/17 00:27 IMPRESSION: No acute findings. 2010 [employer]- All Rights Reserved Abdomen/Pelvis CT 03/18/17 03:59 IMPRESSION: Moderate diffuse colitis pattern. Infectious, inflammatory, neoplastic processes are in the differential diagnosis. Qualifiers PATEINT BEING DISCHARGED WITH ANY OF THE FOLLOWING DIAGNOSIS?: No Plan Discharge Plan: Patient is discharged to home. Follow-up with primary care in 2 weeks. She is instructed to hold metformin until she has follow-up blood work shows resolution of her renal failure. Time Spent: Greater than 30 Minutes
== END 2017-03-21 12:38 | disposition home or self-care (01) | DRG 684 ==
LOC: ER 22:59 → EH 03-18 05:20 → OBSVTOIN 03-18 05:20 → 4S 03-18 06:16
PROVIDERS: ADMIT Internal Medicine; ATTEND Internal Medicine
DX: N17.9 Acute kidney failure, unspecified (principal); E86.0 Dehydration; K52.9 Noninfective gastroenteritis and colitis, unspecified; F41.9 Anxiety disorder, unspecified; I10 Essential (primary) hypertension; E03.9 Hypothyroidism, unspecified; I48.0 Paroxysmal atrial fibrillation; F25.9 Schizoaffective disorder, unspecified; E11.9 Type 2 diabetes mellitus without complications; J45.909 Unspecified asthma, uncomplicated; K21.9 Gastro-esophageal reflux disease without esophagitis; M19.90 Unspecified osteoarthritis, unspecified site; F32.9 Major depressive disorder, single episode, unspecified; E87.6 Hypokalemia; E78.00 Pure hypercholesterolemia, unspecified; E83.42 Hypomagnesemia; Z79.899 Other long term (current) drug therapy; Z90.49 Acquired absence of other specified parts of digestive tract; Z82.3 Family history of stroke; Z83.3 Family history of diabetes mellitus; Z80.9 Family history of malignant neoplasm, unspecified; Z82.49 Family history of ischemic heart disease and other diseases of the circulatory system; Z88.6 Allergy status to analgesic agent; Z88.0 Allergy status to penicillin; Z88.2 Allergy status to sulfonamides
CPT/HCPCS: 36415; 74022; 74176; 80048; 80053; 81001; 82550; 82962; 83735; 84443; 85025; 85652; 87086; 87088; 87186; 96361; 96374; 96375; 99285; J1644; J2405; J2550; J3475; J3490; J7030

== ENCOUNTER → 2017-04-01 | Outpatient (CLI) | payer OTHER ==
[2017-04-01 12:45] LABS: ANION GAP 12 (5-19); BLOOD UREA NITROGEN 8 mg/dL (7-20); CALCIUM 10.2 mg/dL (8.4-10.2); CARBON DIOXIDE 28 mmol/L (22-30); CHLORIDE 101 mmol/L (98-107); CHOLESTEROL 219.75 mg/dL (0-200); GLUCOSE 110 mg/dL (75-110); POTASSIUM 4.1 mmol/L (3.6-5.0); TRIGLYCERIDES 189 mg/dL (<150)
[2017-04-01 12:56] LABS: DIRECT LDL 115 mg/dL (<100)
[2017-04-01 12:59] LABS: VLDL CHOLESTEROL 37.8 mg/dL (10-31)
== END ==
LOC: CCC 11:25
DX: I48.91 Unspecified atrial fibrillation (principal); E11.8 Type 2 diabetes mellitus with unspecified complications; E03.9 Hypothyroidism, unspecified
CPT/HCPCS: 36415; 80048; 80061; 83036; 84443

== ENCOUNTER → 2017-04-28 | Outpatient (CLI) | payer OTHER ==
--- NOTE | 2017-04-28 20:43 | XCELERA REPORT ---
[address] [address] Transthoracic Echocardiogram Report Name: SHOSHANA BOWMAN Age: 51 yrs Gender: Female : 1965 Patient Status: Outpatient Patient Location: Study Date: 04/28/2017 11:05 AM Height: 63 in Weight: 222 lb BSA: 2.0 m2 Reason For Study: AFIB Ordering Physician: RO CHEN Performed By: Elsy Beth Interpretation Summary Min post. pericardial effusion AV sclerosis mild, no , no AR. Mild Mild annular calcification, no MS, no MVP, no MR, but mild/mod LA enlargement, ANNE not measured. LV grossly normal LVEF, may be mild Inferoseptal hypokinesis, stage I LV diastolic dysfunction. Mild TR with RVSP 24 and normal. No R heart enlargement. No ASD MMode/2D Measurements & Calculations RVDd: 2.8 cm LVIDd: 5.1 cm FS: 38.0 % Ao root diam: 2.6 cm IVSd: 0.93 cm LVIDs: 3.1 cm EDV(Teich): 122.2 ml LVPWd: 0.94 cmESV(Teich): 39.3 ml Ao root area: 5.2 cm2 EF(Teich): 67.9 % LA dimension: 4.0 cm LVOT diam: 2.3 cm LVOT area: 4.0 cm2 Doppler Measurements & Calculations MV E max sergei: MV P1/2t max sergei: Ao V2 max: LV V1 max P.4 cm/sec 87.9 cm/sec 97.7 cm/sec 1.9 mmHg MV A max sergei: MV P1/2t: 51.1 msec Ao max PG: LV V1 max: 72.6 cm/sec MVA(P1/2t): 4.3 cm2 3.8 mmHg 68.6 cm/sec MV E/A: 1.2 MV dec slope: KODI(V,D): 2.8 cm2 503.5 cm/sec2 TV V2 max: PA V2 max: PI end-d sergei: TR max sergei: 207.7 cm/sec 78.0 cm/sec 93.7 cm/sec 228.0 cm/sec TV max PG: PA max P.4 mmHg TR max P.3 mmHg 20.8 mmHg Left Ventricle The left ventricle is normal in size. There is normal left ventricular wall thickness. LV EF is 65%. Doppler measurements suggest normal left ventricular diastolic function. There is inferoseptal wall moderate hypokinesis. There is no thrombus. Right Ventricle The right ventricle is grossly normal size. The right ventricular systolic function is normal. Atria The right atrium is normal. The left atrium is moderately dilated. The interatrial septum is intact with no evidence for an atrial septal defect. Mitral Valve The mitral valve is grossly normal. There is no evidence of mitral valve prolapse. There is no mitral valve stenosis. There is no mitral regurgitation noted. Aortic Valve The aortic valve is sclerotic and shows some degree of functional abnormality. The aortic valve is trileaflet. The aortic valve opens well. There is no aortic valvular vegetation. There is no aortic valve stenosis. No aortic regurgitation is present. Tricuspid Valve There is a mild amount of tricuspid regurgitation. Best estimated RVSP is approximately 24 mm/Hg. Pulmonic Valve There is a trace or physiologic amount of pulmonic regurgitation. Great Vessels The aortic root is normal size. Effusions Minimal pericardial effusion. I WMSI = 1.13 % Normal = 88 Segments Size X - Cannot 1 - Normal 2 - 3 - Akinetic4 - 1-2 small Interpret Hypokinetic Dyskinetic 3-5 moderate 5 - 6-14 large Aneurysmal 15-16 diffuse : RO CHEN > Jeramie Quevedo
== END ==
LOC: SP 10:50
PROVIDERS: ATTEND Family Medicine
DX: I48.91 Unspecified atrial fibrillation (principal)
CPT/HCPCS: 93306

== ENCOUNTER 2017-08-19 20:31 | Emergency (ER) | payer OTHER ==
[2017-08-19 22:50] LABS: ABSOLUTE BASOPHILS # (AUTO) 0.1 10^3/uL (0.0-0.2); ABSOLUTE EOSINOPHILS # (AUTO) 0.1 10^3/uL (0.0-0.6); ABSOLUTE LYMPHOCYTES (AUTO) 3.4 10^3/uL (0.5-4.7); ABSOLUTE MONOCYTES (AUTO) 0.4 10^3/uL (0.1-1.4); ABSOLUTE NEUT (AUTO) 4.9 10^3/uL (1.7-8.2); EOSINOPHILS % (AUTO) 0.7 % (0-6); HEMATOCRIT 36.1 % (36.0-47.0); HEMOGLOBIN 11.9 g/dL (12.0-15.5); LYMPHOCYTES % (AUTO) 38.8 % (13-45); MEAN CORPUSCULAR HEMOGLOBIN 31.7 pg (27.0-33.4); MEAN CORPUSCULAR HGB CONC 32.9 g/dL (32.0-36.0); MEAN CORPUSCULAR VOLUME 97 fl (80-97); MONOCYTES % (AUTO) 4.5 % (3-13); PLATELET COUNT 312 10^3/uL (150-450); RED BLOOD COUNT 3.74 10^6/uL (3.72-5.28); RED CELL DISTRIBUTION WIDTH 14.2 % (11.5-14.0); TOTAL CELLS COUNTED % (AUTO) 100 %; WHITE BLOOD COUNT 8.9 10^3/uL (4.0-10.5)
[2017-08-19 23:01] LABS: APPEARANCE,URINE CLEAR; BILIRUBIN,URINE NEGATIVE (NEGATIVE); COLOR,URINE STRAW; GLUCOSE, URINE 50 mg/dL (NEGATIVE); KETONES,URINE NEGATIVE (NEGATIVE); LEUKOCYTE ESTERASE,URINE NEGATIVE (NEGATIVE); NITRITE,URINE NEGATIVE (NEGATIVE); PROTEIN,URINE NEGATIVE (NEGATIVE); URINE SPECIFIC GRAVITY 1.006; UROBILINOGEN,URINE NEGATIVE mg/dL (<2.0)
[2017-08-19 23:12] LABS: ALANINE AMINOTRANSFERASE 24 U/L (9-52); ALBUMIN 4.4 g/dL (3.5-5.0); ALKALINE PHOSPHATASE 106 U/L (38-126); ANION GAP 14 (5-19); ASPARTATE AMINO TRANSFERASE 21 U/L (14-36); BILIRUBIN,DIRECT 0.3 mg/dL (0.0-0.4); BILIRUBIN,TOTAL 0.4 mg/dL (0.2-1.3); BLOOD UREA NITROGEN 14 mg/dL (7-20); CARBON DIOXIDE 26 mmol/L (22-30); CHLORIDE 103 mmol/L (98-107); GLUCOSE 185 mg/dL (75-110); LIPASE 105.8 U/L (23-300); POTASSIUM 4.1 mmol/L (3.6-5.0); SODIUM 142.5 mmol/L (137-145)
--- NOTE | 2017-08-20 00:47 | ER Document Report ---
ED GI/ - General Chief Complaint: Urinary Problem Stated Complaint: URINARY PROBLEM Time Seen by Provider: 08/19/17 23:58 Notes: Patient is a 52-year-old female that comes emergency department for chief complaint of possible problem with her kidneys and bladder. She states that she always gets no warning and when she has to urinate she urinates very quickly and at times has not even made it across the house to get into the bathroom and has urinated on herself. She states she has had worsening problems with this at least over the past couple of weeks. She denies fever chills, nausea or vomiting, dysuria. She states she does have some pain in her lower back, she denies injury. TRAVEL OUTSIDE OF THE [place] IN LAST 30 DAYS: No - Related Data Allergies/Adverse Reactions: tramadol Allergy (Intermediate, Verified 03/18/17 01:09) AMS Penicillins Allergy (Mild, Verified 03/18/17 01:09) rash Sulfa (Sulfonamide Antibiotics) Allergy (Mild, Verified 03/18/17 01:09) rash aspirin Allergy (Verified 03/18/17 01:09) Past Medical History - General Information source: Patient - Social History Smoking Status: Former Smoker Chew tobacco use (# tins/day): No Frequency of alcohol use: Occasional Drug Abuse: None Family History: CAD, CVA, DM, Hyperlipidemia, Hypertension, Malignancy, Thyroid Disfunction, Other Patient has suicidal ideation: No Patient has homicidal ideation: No - Past Medical History Cardiac Medical History: Reports: Hx Atrial Fibrillation, Hx Hypercholesterolemia Denies: Hx Coronary Artery Disease, Hx Heart Attack, Hx Hypertension Pulmonary Medical History: Reports: Hx Asthma, Hx Bronchitis Denies: Hx COPD, Hx Pneumonia Neurological Medical History: Denies: Hx Cerebrovascular Accident, Hx Seizures Endocrine Medical History: Reports: Hx Diabetes Mellitus Type 2 - borderline, Hx Hypothyroidism Renal/ Medical History: Denies: Hx Peritoneal Dialysis GI Medical History: Reports: Hx Gastritis, Hx Gastroesophageal Reflux Disease Musculoskeltal Medical History: Reports Hx Arthritis, Reports Hx Musculoskeletal Trauma Psychiatric Medical History: Reports: Hx Anxiety, Hx Depression, Hx Schizoaffective Disorder, Hx Schizophrenia Past Surgical History: Reports: Hx Cholecystectomy, Hx Tubal Ligation. Denies: Hx Hysterectomy - Immunizations Immunizations up to date: Yes Hx Diphtheria, Pertussis, Tetanus Vaccination: Yes - 2013 Review of Systems - Review of Systems Constitutional: No symptoms reported EENT: No symptoms reported Cardiovascular: No symptoms reported Respiratory: No symptoms reported Gastrointestinal: No symptoms reported Genitourinary: See HPI Female Genitourinary: No symptoms reported Musculoskeletal: No symptoms reported Skin: No symptoms reported Hematologic/Lymphatic: No symptoms reported Neurological/Psychological: No symptoms reported Physical Exam - Vital signs Vitals: Temp Pulse Resp BP Pulse Ox 98.1 F 89 22 H 138/80 H 97 08/19/17 21:01 08/19/17 21:01 08/19/17 21:01 08/19/17 21:01 08/19/17 21:01 Interpretation: Normal - General General appearance: Appears well, Alert - HEENT Head: Normocephalic, Atraumatic Eyes: Normal Pupils: PERRL - Respiratory Respiratory status: No respiratory distress Chest status: Nontender Breath sounds: Normal Chest palpation: Normal - Cardiovascular Rhythm: Regular Heart sounds: Normal auscultation Murmur: No - Abdominal Inspection: Normal Distension: No distension Bowel sounds: Normal Tenderness: Nontender. No: Tender, Guarding Organomegaly: No organomegaly - Back Back: Normal, Nontender - Extremities General upper extremity: Normal inspection, Nontender, Normal color, Normal ROM , Normal temperature General lower extremity: Normal inspection, Nontender, Normal color, Normal ROM , Normal temperature, Normal weight bearing. No: Ysabel's sign - Neurological Neuro grossly intact: Yes Cognition: Normal Orientation: AAOx4 Becca Coma Scale Eye Opening: Spontaneous [place] Coma Scale Verbal: Oriented [place] Coma Scale Motor: Obeys Commands Becca Coma Scale Total: 15 Speech: Normal Motor strength normal: LUE, RUE, LLE, RLE Sensory: Normal - Psychological Associated symptoms: Normal affect, Normal mood - Skin Skin Temperature: Warm Skin Moisture: Dry Skin Color: Normal Course - Re-evaluation Re-evalutation: Patient with no CVA tenderness, soft abdomen, CBC unremarkable, chemistry unremarkable including renal functioning, urinalysis unremarkable. Patient with description of symptoms consistent with urge incontinence. Patient is on multiple psychiatric medications including Aime, Trental X, Latuda, multiple ones of these are new. Concerned that she might have symptoms secondary to this , she has also had multiple children. No concerning symptoms reported otherwise. Discussed workup with patient. After discussion patient requests both Vistaril and oxybutynin which had been discussed, I discussed medication adjustments with her provider, Jack cummins, and she was provided with handout description of recommendations and instructions regarding urge incontinence. Discussed with patient and family in detail, discussed follow-up and return precautions, they state understanding and agreement. - Vital Signs Vital signs: Temp Pulse Resp BP Pulse Ox 97.4 F 89 22 H 124/67 98 08/20/17 01:32 08/20/17 01:32 08/19/17 21:01 08/20/17 01:32 08/20/17 01:32 - Laboratory Result Diagrams: 08/19/17 22:25 08/19/17 22:25 Laboratory results interpreted by me: 08/19/17 08/19/17 08/19/17 22:25 22:25 22:25 Hgb 11.9 L RDW 14.2 H Est GFR (Non-Af Amer) 50 L Glucose 185 H Urine Glucose (UA) 50 H Discharge - Discharge Clinical Impression: Urge incontinence Condition: Stable Disposition: HOME, SELF-CARE Additional Instructions: Your workup does not show any concerning a normality's. Your symptoms are consistent with urge incontinence. Because of your worsening symptoms and recent medication change, please talk to your provider for possible adjustments of your medications for improvement. You have been prescribed Vistaril and oxybutynin, both of these can help reduce your urinary symptoms. Return for any concerning symptoms including fever, vomiting, abdominal pain, or any other concerning or worsening symptoms. Prescriptions: Hydroxyzine Pamoate [Vistaril 25 mg Capsule] 1 - 2 cap PO Q6 PRN #30 capsule PRN Reason: Oxybutynin Chloride 5 mg PO ASDIR PRN #30 tablet PRN Reason: Referrals: CHLOÉ CAMPBELL MD [Primary Care Provider] - Follow up as needed
[2017-08-20] MEDS ORDERED: HYDROXYZINE PAMOATE 25 MG CAPSULE PO ONE (01:03)
[2017-08-20] MEDS ORDERED: HYDROXYZINE PAMOATE 25 MG CAPSULE (4 CAP/ER DISP) PO PRN (01:08)
[2017-08-20 01:38] VITALS: BP 124/67
== END 2017-08-20 02:11 | disposition home or self-care (01) ==
LOC: ER 20:31
DX: N39.41 Urge incontinence (principal); R39.198 Other difficulties with micturition; Z87.891 Personal history of nicotine dependence; J45.909 Unspecified asthma, uncomplicated; E11.9 Type 2 diabetes mellitus without complications
CPT/HCPCS: 99283; 36415; 83690; 85025; 80053; 81001; J3490

== ENCOUNTER → 2017-08-19 | Outpatient (CLI) | payer OTHER ==
[2017-08-19 13:36] LABS: HEMATOCRIT 34.8 % (36.0-47.0); HEMOGLOBIN 11.7 g/dL (12.0-15.5); MEAN CORPUSCULAR HGB CONC 33.5 g/dL (32.0-36.0); MEAN CORPUSCULAR VOLUME 95 fl (80-97); PLATELET COUNT 300 10^3/uL (150-450); RED BLOOD COUNT 3.65 10^6/uL (3.72-5.28); RED CELL DISTRIBUTION WIDTH 14.2 % (11.5-14.0); WHITE BLOOD COUNT 5.3 10^3/uL (4.0-10.5)
[2017-08-19 13:55] LABS: ANION GAP 11 (5-19); BLOOD UREA NITROGEN 13 mg/dL (7-20); CALCIUM 9.8 mg/dL (8.4-10.2); CARBON DIOXIDE 26 mmol/L (22-30); CHLORIDE 104 mmol/L (98-107); GLUCOSE 84 mg/dL (75-110); POTASSIUM 4.4 mmol/L (3.6-5.0); SODIUM 141.3 mmol/L (137-145)
[2017-08-19 14:09] LABS: CHOLESTEROL 215.38 mg/dL (0-200); DIRECT LDL 87 mg/dL (<100); TRIGLYCERIDES 300 mg/dL (<150)
[2017-08-19 15:01] LABS: APPEARANCE,URINE CLEAR; BILIRUBIN,URINE NEGATIVE (NEGATIVE); COLOR,URINE COLORLESS; GLUCOSE, URINE NEGATIVE (NEGATIVE); KETONES,URINE NEGATIVE (NEGATIVE); LEUKOCYTE ESTERASE,URINE NEGATIVE (NEGATIVE); NITRITE,URINE NEGATIVE (NEGATIVE); PROTEIN,URINE NEGATIVE (NEGATIVE); URINE SPECIFIC GRAVITY 1.002; UROBILINOGEN,URINE NEGATIVE mg/dL (<2.0)
== END ==
LOC: OD 12:05
PROVIDERS: ATTEND Obstetrics & Gynecology Gynecology
DX: F33.1 Major depressive disorder, recurrent, moderate (principal)
CPT/HCPCS: 36415; 80048; 80061; 81001; 83036; 84443; 85027

== ENCOUNTER → 2017-08-19 | Outpatient (CLI) | payer OTHER ==
[2017-08-19 13:15] LABS: ABSOLUTE EOSINOPHILS # (AUTO) 0.1 10^3/uL (0.0-0.6); ABSOLUTE LYMPHOCYTES (AUTO) 2.4 10^3/uL (0.5-4.7); ABSOLUTE MONOCYTES (AUTO) 0.3 10^3/uL (0.1-1.4); ABSOLUTE NEUT (AUTO) 2.6 10^3/uL (1.7-8.2); BASOPHILS % (AUTO) 0.6 % (0-2); EOSINOPHILS % (AUTO) 1.2 % (0-6); HEMATOCRIT 34.8 % (36.0-47.0); HEMOGLOBIN 11.7 g/dL (12.0-15.5); LYMPHOCYTES % (AUTO) 44.4 % (13-45); MEAN CORPUSCULAR HGB CONC 33.5 g/dL (32.0-36.0); MEAN CORPUSCULAR VOLUME 95 fl (80-97); MONOCYTES % (AUTO) 5.3 % (3-13); PLATELET COUNT 300 10^3/uL (150-450); RED BLOOD COUNT 3.65 10^6/uL (3.72-5.28); RED CELL DISTRIBUTION WIDTH 14.2 % (11.5-14.0); SEGMENTED NEUTROPHILS % (AUTO) 48.5 % (42-78); TOTAL CELLS COUNTED % (AUTO) 100 %; WHITE BLOOD COUNT 5.3 10^3/uL (4.0-10.5)
[2017-08-19 13:19] LABS: APPEARANCE,URINE CLEAR; BILIRUBIN,URINE NEGATIVE (NEGATIVE); COLOR,URINE COLORLESS; GLUCOSE, URINE NEGATIVE (NEGATIVE); KETONES,URINE NEGATIVE (NEGATIVE); LEUKOCYTE ESTERASE,URINE NEGATIVE (NEGATIVE); NITRITE,URINE NEGATIVE (NEGATIVE); PROTEIN,URINE NEGATIVE (NEGATIVE); URINE SPECIFIC GRAVITY 1.002; UROBILINOGEN,URINE NEGATIVE mg/dL (<2.0)
[2017-08-19 13:34] LABS: ALANINE AMINOTRANSFERASE 25 U/L (9-52); ALBUMIN 4.1 g/dL (3.5-5.0); ALKALINE PHOSPHATASE 98 U/L (38-126); ANION GAP 11 (5-19); ASPARTATE AMINO TRANSFERASE 21 U/L (14-36); BILIRUBIN,DIRECT 0.3 mg/dL (0.0-0.4); BILIRUBIN,TOTAL 0.6 mg/dL (0.2-1.3); BLOOD UREA NITROGEN 13 mg/dL (7-20); CALCIUM 9.8 mg/dL (8.4-10.2); CARBON DIOXIDE 26 mmol/L (22-30); CHLORIDE 104 mmol/L (98-107); GLUCOSE 84 mg/dL (75-110); POTASSIUM 4.4 mmol/L (3.6-5.0); SODIUM 141.3 mmol/L (137-145); TOTAL PROTEIN 6.7 g/dL (6.3-8.2)
== END ==
LOC: CCC 11:46
DX: Z00.00 Encounter for general adult medical examination without abnormal findings (principal)
CPT/HCPCS: 36415; 80053; 81001; 83036; 84443; 85025; 87086

== ENCOUNTER 2017-12-15 00:29 | Emergency (ER) | payer MEDICAID, OTHER ==
[2017-12-15 01:28] LABS: ABSOLUTE EOSINOPHILS # (AUTO) 0.2 10^3/uL (0.0-0.6); ABSOLUTE LYMPHOCYTES (AUTO) 3.2 10^3/uL (0.5-4.7); ABSOLUTE MONOCYTES (AUTO) 0.4 10^3/uL (0.1-1.4); ABSOLUTE NEUT (AUTO) 4.8 10^3/uL (1.7-8.2); BASOPHILS % (AUTO) 0.1 % (0-2); HEMATOCRIT 35.9 % (36.0-47.0); HEMOGLOBIN 11.9 g/dL (12.0-15.5); LYMPHOCYTES % (AUTO) 37.4 % (13-45); MEAN CORPUSCULAR HEMOGLOBIN 31.2 pg (27.0-33.4); MEAN CORPUSCULAR HGB CONC 33.2 g/dL (32.0-36.0); MEAN CORPUSCULAR VOLUME 94 fl (80-97); MONOCYTES % (AUTO) 4.7 % (3-13); PLATELET COUNT 312 10^3/uL (150-450); RED BLOOD COUNT 3.82 10^6/uL (3.72-5.28); SEGMENTED NEUTROPHILS % (AUTO) 55.8 % (42-78); TOTAL CELLS COUNTED % (AUTO) 100 %; WHITE BLOOD COUNT 8.6 10^3/uL (4.0-10.5)
[2017-12-15 01:34] LABS: INTERNATIONAL RATION (INR) 0.85
[2017-12-15 02:47] LABS: ALANINE AMINOTRANSFERASE 13 U/L (9-52); ALKALINE PHOSPHATASE 121 U/L (38-126); ANION GAP 10 (5-19); ASPARTATE AMINO TRANSFERASE 29 U/L (14-36); BILIRUBIN,DIRECT 0.6 mg/dL (0.0-0.4); BILIRUBIN,TOTAL 0.6 mg/dL (0.2-1.3); BLOOD UREA NITROGEN 15 mg/dL (7-20); CALCIUM 9.4 mg/dL (8.4-10.2); CARBON DIOXIDE 24 mmol/L (22-30); CHLORIDE 106 mmol/L (98-107); CREATINE KINASE 190 U/L (30-135); GLUCOSE 173 mg/dL (75-110); POTASSIUM 4.3 mmol/L (3.6-5.0); SODIUM 139.9 mmol/L (137-145)
[2017-12-15 03:11] LABS: CREATINE KINASE MB 1.69 ng/mL (<4.55)
[2017-12-15 03:12] LABS: TROPONIN I < 0.012 ng/mL
[2017-12-15] MEDS ORDERED: MORPHINE SULFATE 10 MG/ML INJ IV ONE (03:25)
--- NOTE | 2017-12-15 03:25 | ER Document Report ---
ED Cardiac - General Chief Complaint: Chest Pain Stated Complaint: CHEST PAIN Time Seen by Provider: 12/15/17 03:12 Notes: Patient is a 52-year-old female comes emergency department for chief complaint of chest pain, she states the pain is a sharp pain across her chest on both sides that goes down into her ribs. Pain is reproducible by movement. No cough , injury, fever, nausea, vomiting reported. She comes by EMS, declined aspirin in route, again declines it here, states that she takes Eliquis and she refuses to mix them. She is on Eliquis for atrial fibrillation, history of history of hyperlipidemia, anxiety, depression, bipolar. She denies smoking, alcohol, recreational drugs. TRAVEL OUTSIDE OF THE [place] IN LAST 30 DAYS: No - Related Data Allergies/Adverse Reactions: tramadol Allergy (Intermediate, Verified 03/18/17 01:09) AMS Penicillins Allergy (Mild, Verified 03/18/17 01:09) rash Sulfa (Sulfonamide Antibiotics) Allergy (Mild, Verified 03/18/17 01:09) rash aspirin Allergy (Verified 03/18/17 01:09) Past Medical History - General Information source: Patient - Social History Smoking Status: Never Smoker Frequency of alcohol use: None Drug Abuse: None Lives with: Family Family History: CAD, CVA, DM, Hyperlipidemia, Hypertension, Malignancy, Thyroid Disfunction, Other Patient has suicidal ideation: No Patient has homicidal ideation: No - Past Medical History Cardiac Medical History: Reports: Hx Atrial Fibrillation, Hx Hypercholesterolemia Denies: Hx Coronary Artery Disease, Hx Heart Attack, Hx Hypertension Pulmonary Medical History: Reports: Hx Asthma, Hx Bronchitis Denies: Hx COPD, Hx Pneumonia Neurological Medical History: Denies: Hx Cerebrovascular Accident, Hx Seizures Endocrine Medical History: Reports: Hx Diabetes Mellitus Type 2 - borderline, Hx Hypothyroidism Renal/ Medical History: Denies: Hx Peritoneal Dialysis GI Medical History: Reports: Hx Gastritis, Hx Gastroesophageal Reflux Disease Musculoskeletal Medical History: Reports Hx Arthritis, Reports Hx Musculoskeletal Trauma Psychiatric Medical History: Reports: Hx Anxiety, Hx Depression, Hx Schizoaffective Disorder, Hx Schizophrenia Past Surgical History: Reports: Hx Cholecystectomy, Hx Tubal Ligation. Denies: Hx Hysterectomy - Immunizations Immunizations up to date: Yes Hx Diphtheria, Pertussis, Tetanus Vaccination: Yes - 2012 Review of Systems - Review of Systems Constitutional: No symptoms reported EENT: No symptoms reported Cardiovascular: See HPI Respiratory: No symptoms reported Gastrointestinal: No symptoms reported Genitourinary: No symptoms reported Female Genitourinary: No symptoms reported Musculoskeletal: See HPI Skin: No symptoms reported Hematologic/Lymphatic: No symptoms reported Neurological/Psychological: No symptoms reported Physical Exam - Vital signs Vitals: Temp Pulse Resp BP Pulse Ox 98.0 F 94 18 108/54 L 96 12/15/17 00:42 12/15/17 00:42 12/15/17 00:42 12/15/17 00:42 12/15/17 00:42 - Notes Notes: GENERAL: Alert, interacts well. No acute distress. HEAD: Normocephalic, atraumatic. EYES: Pupils equal, round, and reactive to light. Extraocular movements intact. ENT: Oral mucosa moist, tongue midline. NECK: Full range of motion. Supple. Trachea midline. LUNGS: Clear to auscultation bilaterally, no wheezes, rales, or rhonchi. No respiratory distress. Specific and reproducible bilateral parasternal chest pain specifically in between the ribs. Pain with movement. HEART: Regular rate and rhythm. No murmur ABDOMEN: Soft, non-tender. Non-distended. Bowel sounds present in all 4 quadrants. EXTREMITIES: Moves all 4 extremities spontaneously. No edema, normal radial and dorsalis pedis pulses bilaterally. No cyanosis. BACK: no cervical, thoracic, lumbar midline tenderness. No saddle anesthesia, normal distal neurovascular exam. NEUROLOGICAL: Alert and oriented x3. Normal speech. [cranial nerves II through XII grossly intact]. PSYCH: Normal affect, normal mood. SKIN: Warm, dry, normal turgor. No rashes or lesions noted. Course - Re-evaluation Re-evalutation: EKG shows sinus rhythm at a rate of 94, QTc 461, NC 164. No T-wave inversions or ST segment changes some artifact noted. Normal axis. Chest x-ray unremarkable. CBC, chemistry unremarkable. Initial troponin is negative. We will cycle. Patient continues to have very specific reproducible chest wall pain on evaluation. Second troponin cycled and negative. I discussed with patient. Patient states she actually gets "this pain a lot", states she has discussed this with her primary provider. She has had a negative stress test in the past. She is not tachycardic, has no shortness of breath, no lower extremity swelling, no previous blood clot, and she is on Eliquis. Low suspicion of ACS, pulmonary embolism, aortic dissection. Appears to be chest wall pain specifically. Discussed with patient. Provided her with dexamethasone for treatment of this, discussed follow-up with primary care, discussed return precautions. Patient states satisfaction and agreement with plan. - Vital Signs Vital signs: Temp Pulse Resp BP Pulse Ox 98.0 F 94 20 107/59 L 100 12/15/17 00:42 12/15/17 00:42 12/15/17 05:01 12/15/17 05:01 12/15/17 05:01 - Laboratory Result Diagrams: 12/15/17 01:15 12/15/17 02:10 Laboratory results interpreted by me: 12/15/17 12/15/17 01:15 02:10 Hgb 11.9 L Hct 35.9 L Est GFR (Non-Af Amer) 53 L Glucose 173 H Direct Bilirubin 0.6 H Creatine Kinase 190 H Discharge - Discharge Clinical Impression: Chest wall pain Chest pain Qualifiers: Chest pain type: unspecified Qualified Code(s): R07.9 - Chest pain, unspecified Condition: Stable Disposition: HOME, SELF-CARE Additional Instructions: You have been medicated tonight for chest wall pain. Apply heat to the area, rest, follow-up with your primary care for additional management. Return for any concerning symptoms including difficulty breathing, severe pain, fever of 100.4 or greater, vomiting, passing out, or any other concerning symptoms. Referrals: CHLOÉ CAMPBELL MD [Primary Care Provider] - Follow up as needed
--- NOTE | 2017-12-15 05:28 | RADIOLOGY REPORT (SQ) ---
EXAM DESCRIPTION: X-ray single view chest CLINICAL HISTORY: 52 years Female, chest pain COMPARISON: Prior chest x-ray performed on 05/10/2015. TECHNIQUE: Single portable view of the chest performed on 12/15/2017 at 5:07 AM FINDINGS: The lungs are well expanded and are clear. There is no evidence of a pneumothorax. The cardiac silhouette is normal in size and configuration. The mediastinal contours are normal. No acute osseous abnormality is identified. No focal soft tissue abnormalities are seen. There are multiple overlying phone operator leads. IMPRESSION: No evidence of acute intrathoracic disease.
[2017-12-15 05:31] VITALS: BP 107/59
[2017-12-15] MEDS ORDERED: DEXAMETHASONE SOD PHOS INJ 10 MG/1 ML VIAL IM ONE (06:35)
--- NOTE | 2017-12-15 15:31 | EKG REPORT ---
SEVERITY:- BORDERLINE ECG - SINUS RHYTHM ABERRANT COMPLEX, POSSIBLY SUPRAVENTRICULAR BORDERLINE T ABNORMALITIES, DIFFUSE LEADS : Confirmed by: Lesley Jacome MD 15-Dec-2017 15:30:48
== END 2017-12-15 05:01 | disposition home or self-care (01) ==
LOC: ER 00:29
DX: R07.89 Other chest pain (principal); J45.909 Unspecified asthma, uncomplicated; I48.91 Unspecified atrial fibrillation; Z79.01 Long term (current) use of anticoagulants; Z88.5 Allergy status to narcotic agent; Z88.0 Allergy status to penicillin; Z88.2 Allergy status to sulfonamides; Z88.6 Allergy status to analgesic agent
CPT/HCPCS: 93005; 99285; 96372; 96374; 36415; 82553; 82550; 85025; 85610; 80053; 84484; 71045; 93010; J2270; J1100

== ENCOUNTER 2018-01-12 15:43 | Emergency (ER) | payer MEDICAID, OTHER ==
[2018-01-12] MEDS ORDERED: DEXAMETHASONE SOD PHOS INJ 10 MG/1 ML VIAL IM ONE (16:27)
--- NOTE | 2018-01-12 16:31 | ER Document Report ---
HPI - HPI Pain Level: 5 Notes: Patient is a 52-year-old female who presents to the ED complaining of acute on chronic left shoulder pain over the last week. Patient states that she has chronic intermittent pain to her left shoulders from a previous injury. She has not been seen by a specialist. Patient is not sure if she reaggravated it with an overhead activity or not, but is having more pain with overhead activities. Pain does not radiate. She is eating and drinking without difficulties. No other concerns or complaints. Denies any headache, fever, neck pain, URI, sore throat, chest pain, palpitations, syncope, cough, shortness of breath, wheeze, dyspnea, abdominal pain, nausea/vomiting/diarrhea, urinary retention, dysuria, hematuria, numbness/tingling, muscle paralysis/ weakness, or rash. - ROS Systems Reviewed and Negative: Yes All other systems reviewed and negative - REPRODUCTIVE Reproductive: DENIES: : Past Medical History - Social History Smoking Status: Unknown if Ever Smoked Family History: CAD, CVA, DM, Hyperlipidemia, Hypertension, Malignancy, Thyroid Disfunction, Other - Past Medical History Cardiac Medical History: Reports: Hx Atrial Fibrillation, Hx Hypercholesterolemia Denies: Hx Coronary Artery Disease, Hx Heart Attack, Hx Hypertension Pulmonary Medical History: Reports: Hx Asthma, Hx Bronchitis Denies: Hx COPD, Hx Pneumonia Neurological Medical History: Denies: Hx Cerebrovascular Accident, Hx Seizures Endocrine Medical History: Reports: Hx Diabetes Mellitus Type 2 - borderline, Hx Hypothyroidism Renal/ Medical History: Denies: Hx Peritoneal Dialysis GI Medical History: Reports: Hx Gastritis, Hx Gastroesophageal Reflux Disease Musculoskeletal Medical History: Reports Hx Arthritis, Reports Hx Musculoskeletal Trauma Psychiatric Medical History: Reports: Hx Anxiety, Hx Depression, Hx Schizoaffective Disorder, Hx Schizophrenia Past Surgical History: Reports: Hx Cholecystectomy, Hx Tubal Ligation. Denies: Hx Hysterectomy - Immunizations Immunizations up to date: Yes Hx Diphtheria, Pertussis, Tetanus Vaccination: Yes - 2012 [facility] Provider Document - CONSTITUTIONAL Agree With Documented VS: Yes Notes: PHYSICAL EXAMINATION: GENERAL: Well-appearing, well-nourished and in no acute distress. NECK: Normal range of motion, supple without lymphadenopathy. Non-tender. Spurling negative. No rigidity/meningismus. LUNGS: Breath sounds clear to auscultation bilaterally and equal. No wheezes rales or rhonchi. HEART: Regular rate and rhythm without murmurs, rubs, gallops. Musculoskeletal: Lt shoulder: FROM to passive. LROM to active due to pain. Strength 4+/5 due to pain. + impingement test. Neg speed test. No crepitus. No erythema or warmth. No deformity or ecchymosis. RC intact 5+/5 strength. Extremities: No cyanosis, clubbing, or edema b/l. Peripheral pulses 2+. Capillary refill less than 3 seconds. NEUROLOGICAL: Normal speech, normal gait. Normal sensory, motor exams PSYCH: Normal mood, normal affect. SKIN: Warm, Dry, normal turgor, no rashes or lesions noted. - INFECTION CONTROL TRAVEL OUTSIDE OF THE [place] IN LAST 30 DAYS: No Course - Re-evaluation Re-evalutation: 01/12/18 16:30 Patient is an afebrile, well-hydrated, 52-year-old female who presents to the ED with left shoulder pain which I suspect to be impingement/inflammatory. Vitals are acceptable without any significant tachycardia, tachypnea, or hypoxia. PE is otherwise unremarkable for any neurovascular compromise, obvious tendon/ligament rupture, obvious fracture/dislocation, septic joint. Patient declined any Tylenol or ice. Decadron given IM. Patient is nontoxic- appearing. No other labs or imaging warranted at this time based on H&P. Conservative measures otherwise for symptoms. Recheck with your PCM in 3-5 days. Consider consult orthopedics. Return to the ED with any worsening/ concerning symptoms otherwise as reviewed in discharge. Patient is in agreement. - Vital Signs Vital signs: Temp Pulse Resp BP Pulse Ox 98.6 F 94 20 138/73 H 97 01/12/18 15:57 01/12/18 15:57 01/12/18 15:57 01/12/18 15:57 01/12/18 15:57 Discharge - Discharge Clinical Impression: Left shoulder pain Qualifiers: Chronicity: acute Qualified Code(s): M25.512 - Pain in left shoulder Condition: Stable Disposition: HOME, SELF-CARE Instructions: Exercise Program for the Shoulder ([facility]) Additional Instructions: Rest, Ice, Compression, Elevation Tylenol as needed Light stretches daily Strength exercises as able Moist heat and massage may help F/u with your PCP in 3-5 days for a recheck Consider consult(s) with Orthopedics/physical therapy for ongoing/worsening symptoms Return to the ED with any worsening symptoms and/or development of fever, headache, chest pain, palpitations, syncope, shortness of breath, trouble breathing, abdominal pain, n/v/d, muscle weakness/paralysis, numbness/tingling, swelling, redness, or other worsening symptoms that are concerning to you. Forms: Elevated Blood Pressure Referrals: CHLOÉ CAMPBELL MD [Primary Care Provider] - Follow up as needed [facility] [Provider Group] - Follow up in 1 week
[2018-01-12 16:55] VITALS: BP 114/60
== END 2018-01-12 17:12 | disposition home or self-care (01) ==
LOC: ER 15:43
DX: M25.512 Pain in left shoulder (principal); J45.909 Unspecified asthma, uncomplicated
CPT/HCPCS: 99283; J1100

== ENCOUNTER 2018-02-15 09:30 | Day surgery (SDC) | payer MEDICAID, OTHER ==
[~2018-02-15 09:30] MED LIST: PROPOFOL INJ 200 MG/20 ML VIAL IV ONE
[2018-02-15] MEDS ORDERED: METOPROLOL SUCCINATE 25 MG TAB.SR.24H PO ONE (11:28)
[2018-02-15] MEDS ORDERED: RINGERS SOLUTION,LACTATED 1,000 ML IV PRN (11:34)
[2018-02-15] MEDS ORDERED: PROPOFOL INJ 200 MG/20 ML VIAL IV ONE ×2 (12:39→12:54)
--- NOTE | 2018-02-15 13:51 | Operative Report ---
Operative Report DATE OF SURGERY: 02/15/18 Operative Report: The risks, benefits and alternatives of the procedure including the risks of bleeding, perforation requiring surgery are explained to the patient in detail and informed consent is obtained. The patient is brought back to the endoscopy suite and placed in the left, lateral decubital position. Timeout was called. Propofol medication is administered. A rectal examination is done which did not reveal any masses, tears or fissures. An Olympus videoscope was introduced into the patient's rectum. The scope was then carefully advanced all the way to the cecum. Deep intubation of the cecum could not be done. Prep is relatively good. The scope was then sequentially pulled back via the various segments of the colon including the ascending colon, hepatic flexure, transverse colon, splenic flexure, descending colon and finally into the rectosigmoid portions of the colon. Retroflexion maneuver is performed. The risks benefits and alternatives of the procedure explained to the patient in detail and informed consent is obtained.A GIF Olympus video scope was inserted into the patient's mouth and hypopharynx, the esophagus is identified intubated and insufflated ,the scope was then advanced through the esophagus stomach and duodenum, retroflexion maneuver is done the esophagus stomach and first and second portions of the duodenum examined PREOPERATIVE DIAGNOSIS: Rectal bleeding. Epigastric pain POSTOPERATIVE DIAGNOSIS: Right side colon inflammation status post biopsy. Gastritis status post biopsy rule out Helicobacter pylori. Internal hemorrhoids OPERATION: Colonoscopy with biopsy. EGD with biopsy SURGEON: HEATHER DAN ANESTHESIA: LMAC TISSUE REMOVED OR ALTERED: As noted above. COMPLICATIONS: None. ESTIMATED BLOOD LOSS: None. INTRAOPERATIVE FINDINGS: As noted above. PROCEDURE: Patient tolerated the procedure well. No immediate postprocedure complications are noted. Patient discharged in good condition. Discharge date 02/15/2018. Discharge diet: Regular. Discharge activity: Regular. 2-3-week follow-up to discuss findings. Patient is instructed to call the office or proceed to the emergency room should there be any further problems or questions. Wait on the pathology.
[2018-02-15 14:04] VITALS: BP 112/56
--- NOTE | 2018-02-15 21:59 | EKG REPORT ---
SEVERITY:- ABNORMAL ECG - ATRIAL FIBRILLATION WITH RAPID V-RATE REPOLARIZATION ABNORMALITY, PROB RATE RELATED : Confirmed by: Lesley Jacome MD 15-Feb-2018 21:58:34
== END 2018-02-15 13:40 | disposition home or self-care (01) ==
LOC: END 09:30
PROVIDERS: ATTEND Internal Medicine Gastroenterology
DX: K29.50 Unspecified chronic gastritis without bleeding (principal); K52.9 Noninfective gastroenteritis and colitis, unspecified; K64.8 Other hemorrhoids; K62.5 Hemorrhage of anus and rectum; J45.909 Unspecified asthma, uncomplicated; Z87.891 Personal history of nicotine dependence; Z79.899 Other long term (current) drug therapy; Z79.01 Long term (current) use of anticoagulants; Z79.51 Long term (current) use of inhaled steroids; Z88.2 Allergy status to sulfonamides; R73.03 Prediabetes
CPT/HCPCS: 43239; 45380; 88342 ×2; 88305 ×2; 93005; 93010; J3490; J2704; 813

== ENCOUNTER 2018-02-17 14:23 | Emergency (ER) | payer MEDICAID, OTHER ==
[2018-02-17] MEDS ORDERED: ALBUTEROL SULFATE 0.083% NEB 2.5 MG/3 ML AMPUL NEB ONE (15:04)
[2018-02-17] MEDS ORDERED: IPRATROPIUM/ALBUTEROL 0.5-2.5 MG/3 ML AMPUL NEB ONE (15:04)
--- NOTE | 2018-02-17 15:15 | ER Document Report ---
ED Medical Screen (RME) - General Chief Complaint: Breathing Difficulty Stated Complaint: DIFFICULTY BREATHING Time Seen by Provider: 02/17/18 15:01 TRAVEL OUTSIDE OF THE [place] IN LAST 30 DAYS: No - HPI Notes: 02/17/18 15:14 Patient is a 52-year-old female that presents to the emergency department for chief complaint of shortness of breath and cough. Patient has been coughing, wheezing and short of breath for the last week. Her symptoms are getting worse. She states she should be getting Ventolin but the pharmacy will only give her a generic which does not work as well. She also reports a chest pain across the front of her chest.. ROS: GENERAL: Denies fever of chills CV: chest pain PHYSICAL EXAMINATION: GENERAL: Well-appearing, well-nourished and in no acute distress. HEAD: Atraumatic, normocephalic. EYES: Pupils equal round extraocular movements intact, conjunctiva are normal. ENT: Nares patent NECK: Normal range of motion LUNGS: No respiratory distress, diffuse wheezing Musculoskeletal: Normal range of motion NEUROLOGICAL: Normal speech, normal gait. PSYCH: Normal mood, normal affect. MDM: Patient seen and examined for rapid initial assessment. Vital signs reviewed. A comprehensive ED assessment and evaluation of the patient, analysis of test results and completion of the medical decision making process will be conducted by additional ED providers. - Related Data Allergies/Adverse Reactions: tramadol Allergy (Intermediate, Verified 02/17/18 14:26) AMS Penicillins Allergy (Mild, Verified 02/17/18 14:26) rash Sulfa (Sulfonamide Antibiotics) Allergy (Mild, Verified 02/17/18 14:26) rash aspirin Allergy (Verified 02/17/18 14:26) NO ASA Past Medical History - Social History Chew tobacco use (# tins/day): No Frequency of alcohol use: Occasional Drug Abuse: None - Past Medical History Cardiac Medical History: Reports: Hx Atrial Fibrillation, Hx Heart Attack - A- FIB, Hx Hypercholesterolemia, Hx Hypertension Denies: Hx Coronary Artery Disease Pulmonary Medical History: Reports: Hx Asthma, Hx Bronchitis Denies: Hx COPD, Hx Pneumonia Neurological Medical History: Denies: Hx Cerebrovascular Accident, Hx Seizures Endocrine Medical History: Reports: Hx Diabetes Mellitus Type 2, Hx Hypothyroidism Renal/ Medical History: Denies: Hx Peritoneal Dialysis GI Medical History: Reports: Hx Gastritis, Hx Gastroesophageal Reflux Disease Musculoskeltal Medical History: Reports Hx Arthritis, Reports Hx Musculoskeletal Trauma Psychiatric Medical History: Reports: Hx Anxiety, Hx Depression, Hx Schizoaffective Disorder, Hx Schizophrenia - schizo affective Past Surgical History: Reports: Hx Cholecystectomy, Hx Tubal Ligation. Denies: Hx Hysterectomy - Immunizations Immunizations up to date: Yes Hx Diphtheria, Pertussis, Tetanus Vaccination: Yes - 2012 History of Influenza Vaccine for 12/2016 - 05/2017 Season: Refused Physical Exam - Vital signs Vitals: Temp Pulse Resp BP Pulse Ox 98.2 F 86 22 H 111/55 L 96 02/17/18 14:36 02/17/18 14:36 02/17/18 14:36 02/17/18 14:36 02/17/18 14:36 Course - Vital Signs Vital signs: Temp Pulse Resp BP Pulse Ox 98.2 F 86 22 H 111/55 L 96 02/17/18 14:36 02/17/18 14:36 02/17/18 14:36 02/17/18 14:36 02/17/18 14:36 Doctor's Discharge - Discharge Referrals: CHLOÉ CAMPBELL MD [Primary Care Provider] - Follow up as needed
--- NOTE | 2018-02-17 15:48 | EKG REPORT ---
SEVERITY:- BORDERLINE ECG - SINUS RHYTHM BORDERLINE T WAVE ABNORMALITIES : Confirmed by: Lesley Jacome MD 17-Feb-2018 15:47:25
[2018-02-17 15:53] LABS: ABSOLUTE EOSINOPHILS # (AUTO) 0.3 10^3/uL (0.0-0.6); ABSOLUTE LYMPHOCYTES (AUTO) 1.9 10^3/uL (0.5-4.7); ABSOLUTE MONOCYTES (AUTO) 0.7 10^3/uL (0.1-1.4); ABSOLUTE NEUT (AUTO) 8.2 10^3/uL (1.7-8.2); BASOPHILS % (AUTO) 0.4 % (0-2); EOSINOPHILS % (AUTO) 2.9 % (0-6); HEMATOCRIT 37.9 % (36.0-47.0); HEMOGLOBIN 12.4 g/dL (12.0-15.5); LYMPHOCYTES % (AUTO) 17.3 % (13-45); MEAN CORPUSCULAR HEMOGLOBIN 30.5 pg (27.0-33.4); MEAN CORPUSCULAR HGB CONC 32.6 g/dL (32.0-36.0); MEAN CORPUSCULAR VOLUME 94 fl (80-97); MONOCYTES % (AUTO) 6.1 % (3-13); PLATELET COUNT 312 10^3/uL (150-450); RED BLOOD COUNT 4.05 10^6/uL (3.72-5.28); SEGMENTED NEUTROPHILS % (AUTO) 73.3 % (42-78); TOTAL CELLS COUNTED % (AUTO) 100 %; WHITE BLOOD COUNT 11.2 10^3/uL (4.0-10.5)
[2018-02-17 16:09] LABS: ANION GAP 12 (5-19); BLOOD UREA NITROGEN 12 mg/dL (7-20); CALCIUM 9.8 mg/dL (8.4-10.2); CARBON DIOXIDE 27 mmol/L (22-30); CHLORIDE 102 mmol/L (98-107); GLUCOSE 101 mg/dL (75-110); SODIUM 140.8 mmol/L (137-145)
--- NOTE | 2018-02-17 16:14 | RADIOLOGY REPORT (SQ) ---
EXAM DESCRIPTION: CHEST SINGLE VIEW COMPLETED DATE/TIME: 02/17/2018 4:06 pm REASON FOR STUDY: chest pain COMPARISON: 05/10/2015 EXAM PARAMETERS: NUMBER OF VIEWS: One view. TECHNIQUE: Single frontal radiographic view of the chest acquired. RADIATION DOSE: NA LIMITATIONS: None. FINDINGS: LUNGS AND PLEURA: No opacities, masses or pneumothorax. No pleural effusion. MEDIASTINUM AND HILAR STRUCTURES: No masses. Contour normal. HEART AND VASCULAR STRUCTURES: Heart normal in size. Normal vasculature. BONES: No acute findings. HARDWARE: None in the chest. OTHER: No other significant finding. IMPRESSION: NO ACUTE RADIOGRAPHIC FINDING IN THE CHEST. TECHNICAL DOCUMENTATION: JOB ID: [id number] [employer]- All Rights Reserved Reading location - IP/workstation name: [email or web address]
[2018-02-17] MEDS ORDERED: LORAZEPAM INJ 2 MG/1 ML VIAL IV ONE ×2 (16:21→19:02)
[2018-02-17] MEDS ORDERED: METHYLPREDNISOLONE INJ 125 MG/2 ML SDV IV ONE (17:47)
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
[2018-02-17] MEDS ORDERED: NORMAL SALINE 500 ML IV ONE (19:00)
[2018-02-17 19:16] LABS: APPEARANCE,URINE SLIGHTLY-CLOUDY; BILIRUBIN,URINE NEGATIVE (NEGATIVE); COLOR,URINE YELLOW; GLUCOSE, URINE NEGATIVE (NEGATIVE); KETONES,URINE NEGATIVE (NEGATIVE); LEUKOCYTE ESTERASE,URINE MODERATE (NEGATIVE); NITRITE,URINE NEGATIVE (NEGATIVE); PROTEIN,URINE 30 mg/dL (NEGATIVE); URINE SPECIFIC GRAVITY 1.021
--- NOTE | 2018-02-17 20:32 | RADIOLOGY REPORT (SQ) ---
EXAM DESCRIPTION: CTA CHEST COMPLETED DATE/TIME: 02/17/2018 8:04 pm REASON FOR STUDY: Rule out PE PERC score of 4 and Wells of 7.5 COMPARISON: Chest x-ray 02/17/2018 TECHNIQUE: CT scan of the chest performed using helical scanning technique with dynamic intravenous contrast injection. Images reviewed with lung, soft tissue and bone windows. Reconstructed coronal and sagittal MPR images reviewed. Additional 3 dimensional post-processing performed to develop Maximal Intensity Projection images (UT P). All images stored on PACS. All CT scanners at this facility use dose modulation, iterative reconstruction, and/or weight based d osing when appropriate to reduce radiation dose to as low as reasonably achievable (ALARA). [facility]: Dose Right [facility]: CareDose [facility]: Dose Right [facility]: Teradose 4D [facility]: Work[employer] CONTRAST TYPE AND DOSE: contrast/concentration: Isovue 350.00 mg/ml; Total Contrast Delivered: 85.0 ml; Total Saline Delivered: 110.0 ml Contrast bolus optimized for the pulmonary arteries. Not diagnostic for the aorta. RENAL FUNCTION: BUN 12 creatinine 1 RADIATION DOSE: CT Rad equipment meets quality standard of care and radiation dose reduction techniq ues were employed. CTDIvol: 38.0 - 56.2 mGy. DLP: 1341 mGy-cm. . LIMITATIONS: None. FINDINGS: LUNGS AND PLEURA: There is limited opacification in the lingula and in the right middle lo be. Likely atelectatic. Ground-glass infiltrates present in both lungs. AORTA AND GREAT VESSELS: No aneurysm. Contrast bolus not optimized for the aorta. HEART: No pericardial effusion. No significant coronary artery calcifications. PULMONARY ARTERIES: No emboli visualized in the main pulmonary arteries or the segmental branches. HILAR AND MEDIASTINAL STRUCTURES: No identified masses or abnormal nodes. HARDWARE: None in the chest. UPPER ABDOMEN: No significant findings. Limited exam. THYROID AND OTHER SOFT TISSUES: No masses. No adenopathy. BONES: No acute or significant finding. 3D MIPS: Confirm above findings. OTHER: No other significant finding. IMPRESSION: 1. There is no evidence of pulmonary embolus. 2. Ground-glass infiltrates in both lungs may relate to chronic interstitial changes or mild interst itial edema. Seems less likely to relate to atypical infectious process. 3. There is limited opacification in the right middle lobe and in the lingula likely related to atel ectasis. Cannot entirely lateral multicentric pneumonia. COMMENT: Quality ID # [id number]: Final reports with documentation of one or more dose reduction techniques (e.g., Automated exposure control, adjustment of the mA and/or kV according to patient size, use of iterative reconstruction technique) TECHNICAL DOCUMENTATION: JOB ID: [id number] [employer]- All Rights Reserved Reading location - IP/workstation name: [email or web address]
[2018-02-17] MEDS ORDERED: DOXYCYCLINE HYCLATE 100 MG TABLET PO ONE (21:03)
[2018-02-17] MEDS ORDERED: ALBUTEROL SULFATE HFA (90 MCG/PUFF) 8 GM MDI (1 MDI/ER DISP) IH ONE (21:03)
[2018-02-17 21:39] VITALS: BP 151/68
== END 2018-02-17 21:39 | disposition home or self-care (01) ==
LOC: ER 14:23
DX: J45.21 Mild intermittent asthma with (acute) exacerbation (principal); R06.02 Shortness of breath; R05 Cough; R09.81 Nasal congestion; J34.89 Other specified disorders of nose and nasal sinuses; R07.1 Chest pain on breathing; I48.91 Unspecified atrial fibrillation; E66.01 Morbid (severe) obesity due to excess calories; I10 Essential (primary) hypertension; E11.9 Type 2 diabetes mellitus without complications; Z98.890 Other specified postprocedural states; Z88.5 Allergy status to narcotic agent; Z88.0 Allergy status to penicillin; Z88.2 Allergy status to sulfonamides; Z87.891 Personal history of nicotine dependence
CPT/HCPCS: 93005; 96376; 94640 ×2; 99285; 96361; 96374; 96375; 36415; 85025; 80048; 81001; 84484; 85379; 71045; 71275; 93010; J3490 ×2; J2930; J2060; J7040; J7620

== ENCOUNTER 2018-03-08 10:37 | Emergency (ER) | payer MEDICAID, OTHER ==
[2018-03-08] MEDS ORDERED: ONDANSETRON HCL INJ/PF 4 MG/2 ML SDV IV ONE (11:10)
[2018-03-08] MEDS ORDERED: PROCHLORPERAZINE EDISYLATE INJ 10 MG/2 ML VIAL IV ONE (11:10)
[2018-03-08] MEDS ORDERED: NORMAL SALINE 1000 ML 1,000 ML IV ONE (11:10)
--- NOTE | 2018-03-08 11:15 | ER Document Report ---
ED General - General Chief Complaint: Headache Stated Complaint: HEADACHE Time Seen by Provider: 03/08/18 11:03 TRAVEL OUTSIDE OF THE [place] IN LAST 30 DAYS: No - HPI Patient complains to provider of: Headache Notes: Patient coming in for complaint of frontal headache with photophobia ongoing for approximately 1 month states she saw her PCP was started on a headache medication however no relief therefore came to the ER today is that her PCP was unavailable. Patient denies any fever chills nausea vomiting diarrhea denies any trauma. Patient otherwise is wearing sunglasses upon my evaluation looks to be no obvious distress. - Related Data Allergies/Adverse Reactions: tramadol Allergy (Intermediate, Verified 03/08/18 10:39) AMS Penicillins Allergy (Mild, Verified 03/08/18 10:39) rash Sulfa (Sulfonamide Antibiotics) Allergy (Mild, Verified 03/08/18 10:39) rash aspirin Allergy (Verified 03/08/18 10:39) NO ASA Past Medical History - Social History Smoking Status: Former Smoker Family History: Reviewed & Not Pertinent, CAD, CVA, DM, Hyperlipidemia, Hypertension, Malignancy, Thyroid Disfunction, Other Patient has suicidal ideation: No Patient has homicidal ideation: No - Past Medical History Cardiac Medical History: Reports: Hx Atrial Fibrillation, Hx Heart Attack - A- FIB, Hx Hypercholesterolemia, Hx Hypertension Denies: Hx Coronary Artery Disease Pulmonary Medical History: Reports: Hx Asthma, Hx Bronchitis Denies: Hx COPD, Hx Pneumonia Neurological Medical History: Denies: Hx Cerebrovascular Accident, Hx Seizures Endocrine Medical History: Reports: Hx Diabetes Mellitus Type 2, Hx Hypothyroidism Renal/ Medical History: Denies: Hx Peritoneal Dialysis GI Medical History: Reports: Hx Gastritis, Hx Gastroesophageal Reflux Disease Musculoskeletal Medical History: Reports Hx Arthritis, Reports Hx Musculoskeletal Trauma Psychiatric Medical History: Reports: Hx Anxiety, Hx Depression, Hx Schizoaffective Disorder, Hx Schizophrenia - schizo affective Past Surgical History: Reports: Hx Cholecystectomy, Hx Tubal Ligation. Denies: Hx Hysterectomy - Immunizations Immunizations up to date: Yes Hx Diphtheria, Pertussis, Tetanus Vaccination: Yes - 2012 Review of Systems - Review of Systems Constitutional: No symptoms reported EENT: No symptoms reported Cardiovascular: No symptoms reported Respiratory: No symptoms reported Gastrointestinal: No symptoms reported Genitourinary: No symptoms reported Female Genitourinary: No symptoms reported Musculoskeletal: No symptoms reported Skin: No symptoms reported Hematologic/Lymphatic: No symptoms reported Neurological/Psychological: Headaches -: Yes All other systems reviewed and negative Physical Exam - Vital signs Vitals: Temp Pulse Resp BP Pulse Ox 97.4 F 90 16 127/67 H 99 03/08/18 10:42 03/08/18 10:42 03/08/18 10:42 03/08/18 10:42 03/08/18 10:42 Interpretation: Normal - General General appearance: Appears well, Alert - HEENT Head: Normocephalic, Atraumatic Eyes: Normal Conjunctiva: Normal Cornea: Normal Extraocular movements intact: Yes Eyelashes: Normal Pupils: PERRL Neck: Normal - Respiratory Respiratory status: No respiratory distress Chest status: Nontender Breath sounds: Normal Chest palpation: Normal - Cardiovascular Rhythm: Regular Heart sounds: Normal auscultation Murmur: No - Abdominal Inspection: Normal Distension: No distension Bowel sounds: Normal Tenderness: Nontender Organomegaly: No organomegaly - Back Back: Normal, Nontender - Extremities General upper extremity: Normal inspection, Nontender, Normal color, Normal ROM , Normal temperature General lower extremity: Normal inspection, Nontender, Normal color, Normal ROM , Normal temperature, Normal weight bearing. No: Ysabel's sign - Neurological Neuro grossly intact: Yes Cognition: Normal Orientation: AAOx4 Franklin Coma Scale Eye Opening: Spontaneous Becca Coma Scale Verbal: Oriented Franklin Coma Scale Motor: Obeys Commands Becca Coma Scale Total: 15 Speech: Normal Motor strength normal: LUE, RUE, LLE, RLE Sensory: Normal - Psychological Associated symptoms: Normal affect, Normal mood - Skin Skin Temperature: Warm Skin Moisture: Dry Skin Color: Normal Course - Re-evaluation Re-evalutation: 03/08/18 20:27 The patient presents with headache without signs of STAFF DEVELOPER bleed, stroke, infection , or other serious etiology. The patient is neurologically intact. Given the extremely low risk of these diagnoses further testing and evaluation for these possibilities does not appear to be indicated at this time. The patient has been instructed to return if the symptoms worsen or change in any way.. Sinus disease seen on CT scan we will start the patient on Z-Joselito encouraged patient to continue with Tylenol Motrin Compazine Zofran therapy for headache to follow- up with her primary care physician in 5-7 days for reevaluation. - Vital Signs Vital signs: Temp Pulse Resp BP Pulse Ox 98.2 F 78 18 119/68 98 03/08/18 14:05 03/08/18 14:05 03/08/18 14:05 03/08/18 14:05 03/08/18 14:05 Discharge - Discharge Clinical Impression: Sinusitis Qualifiers: Chronicity: unspecified Headache Qualifiers: Headache type: unspecified Headache chronicity pattern: unspecified pattern Intractability: not intractable Qualified Code(s): R51 - Headache Condition: Good Disposition: HOME, SELF-CARE Instructions: Headache ([facility]), Sinusitis ([facility]) Additional Instructions: CAT scan shows signs of sinus disease we will start you on antibiotic azithromycin. I will highly recommend she follow-up with your primary care physician approximate 5-7 days. Take the Compazine Zofran as provided to see if this would aid in your headache you may also take [id number] anti- inflammatories along with Tylenol. Return to ER symptoms worsen. Prescriptions: Azithromycin [Zithromax] 250 mg PO DAILY #4 tablet Ondansetron HCl [Zofran 4 mg Tablet] 1 - 2 tab PO Q6 #30 tablet Prochlorperazine Maleate [Compazine] 5 mg PO Q6 #30 tablet Referrals: GEORGE SORTO MD [Primary Care Provider] - Follow up in 3-5 days
--- NOTE | 2018-03-08 11:46 | RADIOLOGY REPORT (SQ) ---
EXAM DESCRIPTION: CT HEAD WITHOUT COMPLETED DATE/TIME: 03/08/2018 11:34 am REASON FOR STUDY: frontal pain COMPARISON: None. TECHNIQUE: Axial images acquired through the brain without intravenous contrast. Images reviewed wi th bone, brain and subdural windows. Additional sagittal and coronal reconstructions were generated. Images stored on PACS. All CT scanners at this facility use dose modulation, iterative reconstruction, and/or weight based d osing when appropriate to reduce radiation dose to as low as reasonably achievable (ALARA). [facility]: Dose Right [facility]: CareDose [facility]: Dose Right [facility]: Teradose 4D [facility]: [employer] RADIATION DOSE: CT Rad equipment meets quality standard of care and radiation dose reduction techniq ues were employed. CTDIvol: 53.2 mGy. DLP: 937 mGy-cm. mGy. LIMITATIONS: None. FINDINGS: VENTRICLES: Normal size and contour. CEREBRUM: No masses. No hemorrhage. No midline shift. No evidence for acute infarction. Normal gra y/white matter differentiation. No areas of low density in the white matter. CEREBELLUM: No masses. No hemorrhage. No alteration of density. No evidence for acute infarction. EXTRAAXIAL SPACES: No fluid collections. No masses. ORBITS AND GLOBE: No intra- or extraconal masses. Normal contour of globe without masses. CALVARIUM: No fracture. PARANASAL SINUSES: There is fluid opacification of the unicameral sphenoid sinus. SOFT TISSUES: No mass or hematoma. OTHER: No other significant finding. IMPRESSION: 1. No acute intracranial pathology. 2. Sphenoid sinus disease. EVIDENCE OF ACUTE STROKE: NO. COMMENT: Quality ID # [id number]: Final reports with documentation of one or more dose reduction techniques (e.g., Automated exposure control, adjustment of the mA and/or kV according to patient size, use of iterative reconstruction technique) TECHNICAL DOCUMENTATION: JOB ID: [id number] [employer]- All Rights Reserved Reading location - IP/workstation name: [email or web address]
[2018-03-08] MEDS ORDERED: AZITHROMYCIN 250 MG TABLET PO ONE (12:15)
[2018-03-08] MEDS ORDERED: ACETAMINOPHEN 325 MG TABLET PO ONE (13:41)
[2018-03-08 14:06] VITALS: BP 119/68
== END 2018-03-08 14:08 | disposition home or self-care (01) ==
LOC: ER 10:37
DX: J32.9 Chronic sinusitis, unspecified (principal); R51 Headache; I48.91 Unspecified atrial fibrillation; E78.00 Pure hypercholesterolemia, unspecified; I10 Essential (primary) hypertension; Z88.0 Allergy status to penicillin; Z88.2 Allergy status to sulfonamides; Z88.6 Allergy status to analgesic agent; Z87.891 Personal history of nicotine dependence; Z98.51 Tubal ligation status; Z90.49 Acquired absence of other specified parts of digestive tract; I25.2 Old myocardial infarction
CPT/HCPCS: 99284; 96361; 96374; 96375; 70450; J3490; Q0144; J0780; J2405; J7030

== ENCOUNTER 2018-03-12 18:09 | Emergency (ER) | payer MEDICAID, OTHER ==
[2018-03-12] MEDS ORDERED: HYDROCODONE/ACETAMINOPHEN 5-325 MG TABLET PO ONE (18:23)
--- NOTE | 2018-03-12 18:24 | ER Document Report ---
ED Medical Screen (RME) - General Chief Complaint: Headache Stated Complaint: HEADACHE Time Seen by Provider: 03/12/18 18:19 Notes: 52 years old female who is on Eliquis due to A. fib, presents today with left- sided headache for the last few days. Persistent pain nauseous no vomiting. Has neck pain but no neck stiffness. Diffuse paraspinal muscular tenderness noted over the neck. TRAVEL OUTSIDE OF THE [place] IN LAST 30 DAYS: No - Related Data Allergies/Adverse Reactions: tramadol Allergy (Intermediate, Verified 03/12/18 18:11) AMS Penicillins Allergy (Mild, Verified 03/12/18 18:11) rash Sulfa (Sulfonamide Antibiotics) Allergy (Mild, Verified 03/12/18 18:11) rash aspirin Allergy (Verified 03/12/18 18:11) NO ASA Past Medical History - Social History Frequency of alcohol use: None Drug Abuse: None - Past Medical History Cardiac Medical History: Reports: Hx Atrial Fibrillation, Hx Heart Attack - A- FIB, Hx Hypercholesterolemia, Hx Hypertension Denies: Hx Coronary Artery Disease Pulmonary Medical History: Reports: Hx Asthma, Hx Bronchitis Denies: Hx COPD, Hx Pneumonia Neurological Medical History: Reports: Hx Migraine. Denies: Hx Cerebrovascular Accident, Hx Seizures Endocrine Medical History: Reports: Hx Diabetes Mellitus Type 2, Hx Hypothyroidism Renal/ Medical History: Denies: Hx Peritoneal Dialysis GI Medical History: Reports: Hx Gastritis, Hx Gastroesophageal Reflux Disease Musculoskeltal Medical History: Reports Hx Arthritis, Reports Hx Musculoskeletal Trauma Psychiatric Medical History: Reports: Hx Anxiety, Hx Depression, Hx Schizoaffective Disorder, Hx Schizophrenia - schizo affective Past Surgical History: Reports: Hx Cholecystectomy, Hx Tubal Ligation. Denies: Hx Hysterectomy - Immunizations Immunizations up to date: Yes Hx Diphtheria, Pertussis, Tetanus Vaccination: Yes - 2013 History of Influenza Vaccine for 12/2016 - 05/2017 Season: Refused Physical Exam - Vital signs Vitals: Temp Pulse BP Pulse Ox 98.9 F 85 119/88 H 96 03/12/18 18:12 03/12/18 18:12 03/12/18 18:12 03/12/18 18:12 Course - Vital Signs Vital signs: Temp Pulse Resp BP Pulse Ox 98.9 F 85 119/88 H 96 03/12/18 18:12 03/12/18 18:12 03/12/18 18:12 03/12/18 18:12 Doctor's Discharge - Discharge Referrals: GEORGE SORTO MD [Primary Care Provider] - Follow up as needed
[2018-03-12] MEDS ORDERED: PROCHLORPERAZINE EDISYLATE INJ 10 MG/2 ML VIAL IV ONE (18:34)
[2018-03-12] MEDS ORDERED: DIPHENHYDRAMINE HCL 50 MG/ML VIAL IV ONE (18:34)
[2018-03-12] MEDS ORDERED: KETOROLAC TROMETHAMINE INJ/PF 30 MG/1 ML SDV IV ONE (18:51)
--- NOTE | 2018-03-12 18:57 | ER Document Report ---
HPI - HPI Time Seen by Provider: 03/12/18 18:19 Pain Level: 5 Notes: Patient is a 52-year-old female with a history of hypertension, type 2 diabetes , hypothyroidism, anxiety, depression, migraine headaches, A. fib (on Eliquis) who presents to the ED complaining of a continued left-sided frontal headache that will wrap around to the right side of the forehead x1mo. patient states that she did have a fall initially in the grass and hit the left side of her head which precipitated the headache. Patient states that this headache does mimic previous migraine headaches, but is lasting longer than usual. Patient states that the headache is the same as it has been since initial onset. Patient states that pushing on her head does make the pain worse. She is still eating and drinking without any difficulties. She is urinating normally and having normal bowel movements. Patient is accompanied by her significant other who states that she is otherwise at baseline with mentation, speech, and behavior. Patient states that she was here 4 days ago as well and did have some improvement in her headache, but was placed on antibiotic for sinus infection which she does not believe that she had. Patient states that she has not been able to get in with her primary care doctor so she presented here as her Topamax has not been working well for her. She has no other concerns or complaints. Denies any fever, head injury, neck stiffness, changes in vision/ speech/mentation/hearing, URI, sore throat, chest pain, palpitations, syncope, cough, shortness of breath, wheeze, dyspnea, abdominal pain, nausea/vomiting/ diarrhea, urinary retention, dysuria, hematuria, loss of control of bowel or bladder, numbness/tingling, saddle anesthesia, muscle paralysis/weakness, or rash. - ROS Systems Reviewed and Negative: Yes All other systems reviewed and negative - REPRODUCTIVE Reproductive: DENIES: : - DERM Skin Color: Normal Past Medical History - Social History Smoking Status: Never Smoker Frequency of alcohol use: None Drug Abuse: None Family History: Reviewed & Not Pertinent, CAD, CVA, DM, Hyperlipidemia, Hypertension, Malignancy, Thyroid Disfunction, Other Patient has suicidal ideation: No Patient has homicidal ideation: No - Past Medical History Cardiac Medical History: Reports: Hx Atrial Fibrillation, Hx Heart Attack - A- FIB, Hx Hypercholesterolemia, Hx Hypertension Denies: Hx Coronary Artery Disease Pulmonary Medical History: Reports: Hx Asthma, Hx Bronchitis Denies: Hx COPD, Hx Pneumonia Neurological Medical History: Reports: Hx Migraine. Denies: Hx Cerebrovascular Accident, Hx Seizures Endocrine Medical History: Reports: Hx Diabetes Mellitus Type 2, Hx Hypothyroidism Renal/ Medical History: Denies: Hx Peritoneal Dialysis GI Medical History: Reports: Hx Gastritis, Hx Gastroesophageal Reflux Disease Musculoskeletal Medical History: Reports Hx Arthritis, Reports Hx Musculoskeletal Trauma Psychiatric Medical History: Reports: Hx Anxiety, Hx Depression, Hx Schizoaffective Disorder, Hx Schizophrenia - schizo affective Past Surgical History: Reports: Hx Cholecystectomy, Hx Tubal Ligation. Denies: Hx Hysterectomy - Immunizations Immunizations up to date: Yes Hx Diphtheria, Pertussis, Tetanus Vaccination: Yes - 2012 Vertical Provider Document - CONSTITUTIONAL Agree With Documented VS: Yes Notes: PHYSICAL EXAMINATION: GENERAL: Well-appearing, well-nourished and in no acute distress. A&Ox4. Answers questions appropriately. HEAD: Atraumatic, normocephalic. + mild tenderness to the temporalis muscles b/ l and to the forehead w/o ecchymosis, hematoma, or step-offs. EYES: Pupils equal round and reactive to light, extraocular movements intact, sclera anicteric, conjunctiva are normal. No nystagmus. vis metzger intact. ENT: EAC clear b/l. TM's intact b/l without erythema, fluid, or perforation. Nares patent and without discharge. oropharynx clear without exudates. No tonsilar hypertrophy or erythema. Moist mucous membranes. No sinus tenderness. NECK: Normal range of motion, supple without lymphadenopathy. No rigidity/ meningismus. No midline tenderness. LUNGS: Breath sounds clear to auscultation bilaterally and equal. No wheezes rales or rhonchi. HEART: Regular rate and rhythm without murmurs, rubs, gallops. ABDOMEN: Soft, nontender, nondistended abdomen. No guarding, no rebound. Normal bowel sounds present. No CVA tenderness bilaterally. Musculoskeletal: Ext's b/l: FROM to passive/active. Strength 5+/5. No deficits noted. No bony tenderness of extremities. Extremities: No cyanosis, clubbing, or edema b/l. Peripheral pulses 2+. Capillary refill less than 2 seconds. NEUROLOGICAL: NIH 0. GCS 15. Cranial nerves grossly intact. Normal speech, normal gait. Normal sensory, motor exams. Reflexes 2+ b/l. MICHAEL's negative. Pronator drift negative. Heel/tom, finger/nose wnl. Rhomberg neg. PSYCH: Normal mood, normal affect. SKIN: Warm, Dry, normal turgor, no rashes or lesions noted. - INFECTION CONTROL TRAVEL OUTSIDE OF THE [place] IN LAST 30 DAYS: No Course - Re-evaluation Re-evalutation: 03/12/18 18:55 Patient is currently neurologically intact with acceptable vital signs. Patient had a negative CT scan 4 days ago[address] Reviewed with Dr. Pope that another CT scan is not warranted at this time. Pt has not had any acute changes since that last visit. 03/12/18 21:25 Patient is an afebrile, well-hydrated, 52-year-old female who presents to the ED with a headache, suspect migrainous. Vitals are acceptable without any significant tachycardia, tachypnea, or hypoxia. PE is otherwise unremarkable for any focal neurological deficits. NIH 0, GCS 15, cranial nerves grossly intact. Patient has had headaches like this in the past. No labs or imaging warranted at this time based on H&P. Neg CT scan 4 days ago. Patient was given Toradol, Compazine, and benadryl which has resolved her headache. Patient states that she is feeling much better and would like to go home. She is nontoxic-appearing and is tolerating p.o. without any difficulties. Low suspicion for any sepsis, acute glaucoma, temporal arteritis, meningitis, intracranial hemorrhage, ischemic stroke, or fracture at this time. Patient is aware that this condition can change from initial presentation and that she needs to monitor symptoms closely for any acute changes. Recheck with your PCM/ neurologist in 3-5 days. Return to the ED with any worsening/concerning symptoms otherwise as reviewed in discharge. Patient is in agreement. - Vital Signs Vital signs: Temp Pulse Resp BP Pulse Ox 98.9 F 85 119/88 H 96 03/12/18 18:12 03/12/18 18:12 03/12/18 18:12 03/12/18 18:12 Discharge - Discharge Clinical Impression: Headache Qualifiers: Headache type: unspecified Headache chronicity pattern: acute headache Intractability: not intractable Qualified Code(s): R51 - Headache Condition: Stable Disposition: HOME, SELF-CARE Instructions: Headache ([facility]) Additional Instructions: Rest, Ice/cool compress Tylenol/ibuprofen as needed Light stretches daily Strength exercises as able Moist heat and massage may help F/u with your PCP in 3-5 days for a recheck Consider consult(s) with Neurology for ongoing/worsening symptoms Return to the ED with any worsening symptoms and/or development of fever, headache, changes in behavior/mentation/vision/speech, chest pain, palpitations , syncope, shortness of breath, trouble breathing, abdominal pain, n/v/d, blood in stool/urine, loss of control of bowel/bladder, urinary retention, muscle weakness/paralysis, saddle anesthesia, numbness/tingling, or other worsening symptoms that are concerning to you. Forms: Elevated Blood Pressure Referrals: GEORGE SORTO MD [Primary Care Provider] - Follow up in 3-5 days ANGELA MARIA MD [NO LOCAL MD] - Follow up as needed
[2018-03-12 23:05] VITALS: BP 111/65
== END 2018-03-12 22:30 | disposition home or self-care (01) ==
LOC: ER 18:09
DX: R51 Headache (principal); E11.9 Type 2 diabetes mellitus without complications; E03.9 Hypothyroidism, unspecified; I10 Essential (primary) hypertension; I48.91 Unspecified atrial fibrillation; I25.2 Old myocardial infarction; E78.00 Pure hypercholesterolemia, unspecified; Z90.49 Acquired absence of other specified parts of digestive tract; Z98.51 Tubal ligation status
CPT/HCPCS: 99283; 96374; 96375; J1200; J1885; J0780

== ENCOUNTER 2018-07-04 21:54 | Emergency (ER) | payer MEDICAID ==
[2018-07-05 00:34] VITALS: BP 129/49
[2018-07-05] MEDS ORDERED: KETOROLAC TROMETHAMINE INJ/PF 30 MG/1 ML SDV IM ONE (00:41)
[2018-07-05] MEDS ORDERED: DIPHENHYDRAMINE HCL 50 MG/ML VIAL IM ONE (00:41)
[2018-07-05] MEDS ORDERED: METOCLOPRAMIDE HCL INJ/PF 10 MG/2 ML SDV IM ONE (00:41)
--- NOTE | 2018-07-05 00:47 | ER Document Report ---
ED Headache - General Chief Complaint: Headache Stated Complaint: HEADACHE Time Seen by Provider: 07/05/18 00:35 Primary Care Provider: GEORGE SORTO MD [Primary Care Provider] - Follow up as needed Mode of Arrival: Ambulatory TRAVEL OUTSIDE OF THE [place] IN LAST 30 DAYS: No - HPI Patient complains to provider of: Headache, "Migraine" Notes: Patient is here with complaints of headache. The patient has a long history of chronic migraines. She states that she has been having this headache for 6-10 months. Headache is been intermittent, feels like her typical migraine type headaches, but her Imitrex has not been helping. She is in the process of getting referred to pain management due to her chronic headaches. She denies this being a sudden onset, thunderclap headache. It was not due to head injury. She denies any fevers or neck stiffness. No blurred or loss vision. No numbness, tingling, weakness. No chest pain or shortness of breath. She does complain of nausea, but denies any vomiting or diarrhea. Patient also states she has had left eye irritation and drainage for the last 2 days. She denies any severe pain. No injury. She does not wear contacts. She denies any blurred or loss vision to the eye. She denies any pain surrounding the eye. She denies any known specific sick contacts. No rashes. No other specific complaints at this time. - Related Data Allergies/Adverse Reactions: tramadol Allergy (Intermediate, Verified 07/05/18 00:26) AMS Penicillins Allergy (Mild, Verified 07/05/18 00:26) rash Sulfa (Sulfonamide Antibiotics) Allergy (Mild, Verified 07/05/18 00:26) rash aspirin Allergy (Verified 07/05/18 00:26) NO ASA Past Medical History - Social History Smoking Status: Former Smoker Frequency of alcohol use: None Drug Abuse: None Family History: Reviewed & Not Pertinent, CAD, CVA, DM, Hyperlipidemia, Hypertension, Malignancy, Thyroid Disfunction, Other Patient has suicidal ideation: No Patient has homicidal ideation: No - Past Medical History Cardiac Medical History: Reports: Hx Atrial Fibrillation, Hx Heart Attack - A- FIB, Hx Hypercholesterolemia, Hx Hypertension Denies: Hx Coronary Artery Disease Pulmonary Medical History: Reports: Hx Asthma, Hx Bronchitis Denies: Hx COPD, Hx Pneumonia Neurological Medical History: Reports: Hx Migraine. Denies: Hx Cerebrovascular Accident, Hx Seizures Endocrine Medical History: Reports: Hx Diabetes Mellitus Type 2, Hx Hypothyroidism Renal/ Medical History: Denies: Hx Peritoneal Dialysis GI Medical History: Reports: Hx Gastritis, Hx Gastroesophageal Reflux Disease Musculoskeletal Medical History: Reports Hx Arthritis, Reports Hx Musculoskeletal Trauma Psychiatric Medical History: Reports: Hx Anxiety, Hx Depression, Hx Schizoaffective Disorder, Hx Schizophrenia - schizo affective Past Surgical History: Reports: Hx Cholecystectomy, Hx Tubal Ligation. Denies: Hx Hysterectomy - Immunizations Immunizations up to date: Yes Hx Diphtheria, Pertussis, Tetanus Vaccination: Yes - 2012 Review of Systems - Review of Systems -: Yes All other systems reviewed and negative Physical Exam - Vital signs Vitals: Temp Pulse Resp BP Pulse Ox 98.2 F 81 18 122/78 94 07/04/18 22:02 07/04/18 22:02 07/04/18 22:02 07/04/18 22:02 07/04/18 22:02 - Notes Notes: GENERAL: alert, cooperative, nontoxic, no distress. HEAD: normocephalic, atraumatic EYES: Left conjunctive with mild injection and yellow drainage present. No external redness or swelling. Pupils are equal, round, reactive to light. Extraocular muscles are intact bilaterally. EARS: no external swelling, no external redness NOSE: atraumatic, no external swelling MOUTH/THROAT: mucous membranes moist and pink, posterior pharynx without erythema, swelling, exudate. No trismus or drooling. NECK: soft, supple, full range of motion, no meningismus. CHEST: no distress, lungs clear and equal throughout. No wheezing, rales, rhonchi. CARDIAC: regular rate and rhythm, no murmur, normal capillary refill, normal pulses. No peripheral edema noted. BACK: full range of motion, no CVA tenderness. EXTREMITIES: full range of motion of all extremities. No redness, no swelling. NEURO: alert and oriented x 3, cranial nerves II through XII are grossly intact. Upper and lower extremities are equal throughout. Normal sensation. No focal deficits, full range of motion of all extremities. normal finger to nose. PYSCH: appropriate mood, affect. Patient is cooperative. SKIN: pink, warm, dry, no rash. Course - Re-evaluation Re-evalutation: 07/05/18 00:43 Patient is nontoxic-appearing with stable vitals. Patient is here with complaints of headache for the last 6-10 months. She has a history of chronic migraines, sees neurology is in the process of being referred to pain management. This is the same headache that she always has. She states that it actually feels better now than it was earlier today. She denies any head injury. No fevers. She has no neck stiffness. She has no signs of meningitis. No concern for subarachnoid hemorrhage or intracranial hemorrhage. Headache was not sudden onset in nature. She also noted to have some left eye redness and drainage consistent with conjunctivitis. She denies any injury to this area. She does not wear contacts. She denies any visual complaints. She is no signs of periorbital cellulitis. At this point the patient will be given a dose of Toradol, Benadryl, Reglan in the emergency department and can be discharged home with instructions to follow-up with her neurologist. She will be given a prescription for Ciloxan to take for her conjunctivitis with a referral to ophthalmology if this does not improve in the next few days. She should follow- up sooner if she develops any worsening pain, high fever, neck stiffness, persistent vomiting, numbness, tingling, weakness, any further concerns. The patient's emergency department workup and current diagnosis were explained to the patient and or family. Follow-up instructions were provided. Medications if prescribed were discussed. Instructions for when to return to the emergency department including specific worrisome symptoms were discussed with the patient and/or family. - Vital Signs Vital signs: Temp Pulse Resp BP Pulse Ox 98.2 F 52 L 17 129/49 H 99 07/04/18 22:02 07/05/18 00:26 07/05/18 00:26 07/05/18 00:26 07/05/18 00:26 Discharge - Discharge Clinical Impression: Migraine Qualifiers: Migraine type: unspecified Status migrainosus presence: without status migrainosus Intractability: not intractable Qualified Code(s): G43.909 - Migraine, unspecified, not intractable, without status migrainosus Conjunctivitis, left eye Qualifiers: Conjunctivitis type: acute Acute conjunctivitis type: unspecified Qualified Code(s): H10.32 - Unspecified acute conjunctivitis, left eye Condition: Stable Disposition: HOME, SELF-CARE Instructions: Headache ([facility]), Conjunctivitis ([facility]) Additional Instructions: Take medications as prescribed. Wash hands frequently. Follow-up with your doctor at the next available appointment. Follow-up with ophthalmology if your eyes not better in the next 2-3 days, sooner for worsening symptoms, high fever, persistent vomiting, numbness, tingling, weakness, persistent vomiting, or for any further concerns. Prescriptions: Ciprofloxacin HCl [Ciloxan 0.3% Oph Soln 2.5 ml] 1 drop OP Q4H 7 Days #1 bottle Forms: Smoking Cessation Education Referrals: GEORGE SORTO MD [Primary Care Provider] - Follow up as needed RANJIT ZHANG MD [ACTIVE STAFF] - Follow up as needed NATALY MOSLEY OT [OPTHALMIC VASCULAR ULTRASOUND TECHNOLOGIST] - Follow up as needed HENOK RAMIREZ DO [ACTIVE STAFF] - Follow up as needed ALLYSON BRO MD [NO LOCAL MD] - Follow up as needed HEATHER HUFFMAN MD [NO LOCAL MD] - Follow up as needed SLOAN KING MD [NO LOCAL MD] - Follow up as needed RINA MASSEY MD [NO LOCAL MD] - Follow up as needed
== END 2018-07-05 01:13 | disposition home or self-care (01) ==
LOC: ER 21:54
DX: G43.909 Migraine, unspecified, not intractable, without status migrainosus (principal); H10.32 Unspecified acute conjunctivitis, left eye; R11.0 Nausea; I48.91 Unspecified atrial fibrillation; E78.00 Pure hypercholesterolemia, unspecified; I10 Essential (primary) hypertension; E11.9 Type 2 diabetes mellitus without complications; Z88.6 Allergy status to analgesic agent; Z88.0 Allergy status to penicillin; Z88.2 Allergy status to sulfonamides; Z90.49 Acquired absence of other specified parts of digestive tract; Z98.51 Tubal ligation status; I25.2 Old myocardial infarction
CPT/HCPCS: 99283; 96372; J1200; J1885; J2765

== ENCOUNTER → 2018-07-08 | Outpatient (CLI) | payer MEDICAID ==
[2018-07-08 12:54] LABS: FREE T3 3.31 pg/mL (2.77-5.27); FREE T4 (FREE THYROXINE) 1.23 ng/dL (0.78-2.19)
--- NOTE | 2018-07-08 12:57 | RADIOLOGY REPORT (SQ) ---
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 NUMBER OF VIEWS: Five views including obliques. TECHNIQUE: AP, lateral, oblique, and sacral radiographic images acquired of the lumbar spine. LIMITATIONS: None. FINDINGS: MINERALIZATION: Normal. SEGMENTATION: Normal. No transitional anatomy. ALIGNMENT: Normal. VERTEBRAE: Maintained height. No fracture or worrisome bone lesion. DISCS: Preserved height. No significant osteophytes or end plate irregularity. POSTERIOR ELEMENTS: Pedicles and facets are intact. No pars defect or posterior arch defects. HARDWARE: None in the spine. PARASPINAL SOFT TISSUES: Normal. PELVIS: Intact as visualized. No fractures or worrisome bone lesions. SI joints intact. OTHER: No other significant finding. IMPRESSION: NORMAL 5 VIEW LUMBAR SPINE. TECHNICAL DOCUMENTATION: JOB ID: [id number] [employer]- All Rights Reserved Reading location - IP/workstation name: [email or web address]
[2018-07-08 13:11] LABS: THYROID STIMULATING HORMONE < 0.01 uIU/mL (0.47-4.68)
== END ==
LOC: OD 11:04
PROVIDERS: ATTEND Family Medicine
DX: E03.9 Hypothyroidism, unspecified (principal); M54.5 Low back pain; R68.2 Dry mouth, unspecified
CPT/HCPCS: 36415; 72110; 84439; 84443; 84481; 86235

== ENCOUNTER 2018-09-26 22:32 | Emergency (ER) | payer MEDICAID ==
[2018-09-26 23:03] VITALS: BP 145/60
[2018-09-26 23:03] LABS: APPEARANCE,URINE CLOUDY; BILIRUBIN,URINE NEGATIVE (NEGATIVE); COLOR,URINE AMBER; GLUCOSE, URINE 50 mg/dL (NEGATIVE); KETONES,URINE NEGATIVE (NEGATIVE); LEUKOCYTE ESTERASE,URINE LARGE (NEGATIVE); NITRITE,URINE NEGATIVE (NEGATIVE); PROTEIN,URINE 100 mg/dL (NEGATIVE); URINE SPECIFIC GRAVITY 1.003; UROBILINOGEN,URINE NEGATIVE mg/dL (<2.0)
[2018-09-26] MEDS ORDERED: OXYCODONE-ACETAMINOPHEN 5-325 MG TABLET PO ONE (23:32)
[2018-09-26] MEDS ORDERED: PHENAZOPYRIDINE HCL 200 MG TABLET PO ONE (23:32)
--- NOTE | 2018-09-26 23:35 | ER Document Report ---
ED Medical Screen (RME) - General Chief Complaint: Urinary Problem Stated Complaint: URINARY PROBLEM Time Seen by Provider: 09/26/18 23:31 Primary Care Provider: RENALDO DAMON DO [Primary Care Provider] - Follow up as needed Mode of Arrival: Ambulatory Information source: Patient Notes: 53-year-old female coming in today with suprapubic pressure, frequency of urination, dysuria, and hesitancy. Symptoms started this evening. No fevers or chills. No flank pain. I have treated and performed a rapid initial assessment of this patient. A comprehensive ED assessment and evaluation of the patient, analysis of test results and completion of medical decision making process will be conducted by additional ED providers. PHYSICAL EXAMINATION: GENERAL: Well-appearing, well-nourished and in no acute distress. A&Ox4. Answers questions appropriately. LUNGS: Breath sounds clear to auscultation bilaterally and equal. No wheezes rales or rhonchi. HEART: Regular rate and rhythm without murmurs, rubs, gallops. Abdomen: Suprapubic tenderness Extremities: No cyanosis, clubbing, or edema b/l. NEUROLOGICAL: Normal speech, normal gait. PSYCH: Normal mood, normal affect. TRAVEL OUTSIDE OF THE [place] IN LAST 30 DAYS: No - Related Data Allergies/Adverse Reactions: tramadol Allergy (Intermediate, Verified 07/05/18 00:26) AMS Penicillins Allergy (Mild, Verified 07/05/18 00:26) rash Sulfa (Sulfonamide Antibiotics) Allergy (Mild, Verified 07/05/18 00:26) rash aspirin Allergy (Verified 07/05/18 00:26) NO ASA Past Medical History - Past Medical History Cardiac Medical History: Reports: Hx Atrial Fibrillation, Hx Heart Attack - A- FIB, Hx Hypercholesterolemia, Hx Hypertension Denies: Hx Coronary Artery Disease Pulmonary Medical History: Reports: Hx Asthma, Hx Bronchitis Denies: Hx COPD, Hx Pneumonia Neurological Medical History: Reports: Hx Migraine. Denies: Hx Cerebrovascular Accident, Hx Seizures Endocrine Medical History: Reports: Hx Diabetes Mellitus Type 2, Hx Hypothyroidism Renal/ Medical History: Denies: Hx Peritoneal Dialysis GI Medical History: Reports: Hx Gastritis, Hx Gastroesophageal Reflux Disease Musculoskeltal Medical History: Reports Hx Arthritis, Reports Hx Musculoskeletal Trauma Psychiatric Medical History: Reports: Hx Anxiety, Hx Depression, Hx Schizoaffective Disorder, Hx Schizophrenia - schizo affective Past Surgical History: Reports: Hx Cholecystectomy, Hx Tubal Ligation. Denies: Hx Hysterectomy - Immunizations Immunizations up to date: Yes Hx Diphtheria, Pertussis, Tetanus Vaccination: Yes - 2012 History of Influenza Vaccine for 12/2016 - 05/2017 Season: Refused Physical Exam - Vital signs Vitals: Temp Pulse Resp BP Pulse Ox 98.2 F 86 16 145/60 H 96 09/26/18 22:47 09/26/18 22:47 09/26/18 22:47 09/26/18 22:47 09/26/18 22:47 Course - Vital Signs Vital signs: Temp Pulse Resp BP Pulse Ox 98.2 F 86 16 145/60 H 96 09/26/18 22:47 09/26/18 22:47 09/26/18 22:47 09/26/18 22:47 09/26/18 22:47 - Laboratory Laboratory results interpreted by me: 09/26/18 22:45 Urine Protein 100 H Urine Glucose (UA) 50 H Urine Blood LARGE H Ur Leukocyte Esterase LARGE H Doctor's Discharge - Discharge Referrals: RENALDO DAMON DO [Primary Care Provider] - Follow up as needed
--- NOTE | 2018-09-26 23:57 | ER Document Report ---
Addendum entered and electronically signed by CORNELIUS YAN PA-C 09/27/18 00:08: Discharge - Discharge Clinical Impression: UTI (urinary tract infection) Qualifiers: Urinary tract infection type: site unspecified Hematuria presence: without hematuria Qualified Code(s): N39.0 - Urinary tract infection, site not specified Condition: Good Disposition: HOME, SELF-CARE Instructions: Nitrofurantoin ([facility]), Urinary Tract Infection ([facility]) Prescriptions: Nitrofurantoin Macrocrystal [Macrodantin] 100 mg PO BID #14 capsule Referrals: RENALDO DAMON DO [Primary Care Provider] - Follow up as needed Original Note: ED General - General Chief Complaint: Urinary Problem Stated Complaint: URINARY PROBLEM Time Seen by Provider: 09/26/18 23:31 Primary Care Provider: RENALDO DAMON DO [Primary Care Provider] - Follow up as needed Mode of Arrival: Ambulatory Information source: Patient TRAVEL OUTSIDE OF THE [place] IN LAST 30 DAYS: No - HPI Patient complains to provider of: Dysuria, frequency of urination Onset: This evening Onset/Duration: Sudden Quality of pain: Burning Severity: Moderate Pain Level: 4 Associated symptoms: denies: Chills, Fever Exacerbated by: Denies Relieved by: Denies Similar symptoms previously: No Recently seen / treated by doctor: No - Related Data Allergies/Adverse Reactions: tramadol Allergy (Intermediate, Verified 07/05/18 00:26) AMS Penicillins Allergy (Mild, Verified 07/05/18 00:26) rash Sulfa (Sulfonamide Antibiotics) Allergy (Mild, Verified 07/05/18 00:26) rash aspirin Allergy (Verified 07/05/18 00:26) NO ASA Past Medical History - General Information source: Patient - Social History Smoking Status: Never Smoker Drug Abuse: None Lives with: Alone Family History: Reviewed & Not Pertinent, CAD, CVA, DM, Hyperlipidemia, Hypertension, Malignancy, Thyroid Disfunction, Other - Past Medical History Cardiac Medical History: Reports: Hx Atrial Fibrillation, Hx Heart Attack - A- FIB, Hx Hypercholesterolemia, Hx Hypertension Denies: Hx Coronary Artery Disease Pulmonary Medical History: Reports: Hx Asthma, Hx Bronchitis Denies: Hx COPD, Hx Pneumonia Neurological Medical History: Reports: Hx Migraine. Denies: Hx Cerebrovascular Accident, Hx Seizures Endocrine Medical History: Reports: Hx Diabetes Mellitus Type 2, Hx Hypothyroidism Renal/ Medical History: Denies: Hx Peritoneal Dialysis GI Medical History: Reports: Hx Gastritis, Hx Gastroesophageal Reflux Disease Musculoskeletal Medical History: Reports Hx Arthritis, Reports Hx Musculoskeletal Trauma Psychiatric Medical History: Reports: Hx Anxiety, Hx Depression, Hx Schizoaffective Disorder, Hx Schizophrenia - schizo affective Past Surgical History: Reports: Hx Cholecystectomy, Hx Tubal Ligation. Denies: Hx Hysterectomy - Immunizations Immunizations up to date: Yes Hx Diphtheria, Pertussis, Tetanus Vaccination: Yes - 2012 Review of Systems - Review of Systems Notes: Constitutional: No fevers. No chills. EENT: No eye redness. No eye pain. No ear pain. No sore throat. Cardiovascular: No chest pain. No palpitations. Respiratory: No cough. No shortness of breath. No respiratory distress. Gastrointestinal: No abdominal pain. No nausea, vomiting, or diarrhea. Genitourinary: Positive for dysuria and frequency of urination Musculoskeletal: Atraumatic. No swelling. No deformities. Skin: No rash or lesions. Lymphatic: No swollen lymph nodes. Neurologic: No headache. No syncope. Psychiatric: No suicidal or homicidal ideation. Physical Exam - Vital signs Vitals: Temp Pulse Resp BP Pulse Ox 98.2 F 86 16 145/60 H 96 09/26/18 22:47 09/26/18 22:47 09/26/18 22:47 09/26/18 22:47 09/26/18 22:47 - Notes Notes: General: Well-developed, well-nourished. In no acute distress. Non-toxic appearing. Cardiac: Well-perfused. Regular rate and rhythm. No murmurs, rubs, or gallops. Pulmonary: No respiratory distress. No cyanosis. Bilateral lung fiels are clear to auscultation. Abdominal: Suprapubic tenderness to palpation. Negative for CVA tenderness bilaterally.. HEENT: Head is atraumatic. Conjunctivae not reddened. No tearing. PERRL. EOMI. Orbits atraumatic. No periorbital swelling or erythema. Oropharynx is without erythema, swelling, or exudates. Neck: Supple. No adenopathy. No meningismus. Dermatologic: Warm with good turgor. No rash. Atraumatic. Chest: Atraumatic. No chest wall tenderness to palpation. Musculoskeletal: Moves all extremities well. No range of motion deficits. no muscular or joint tenderness. No paraspinal muscle tenderness. no midline spinal tenderness or step-off. Genitourinary: Examination deferred Neurologic: No gross neurologic deficits. Psychiatric: Normal mood. Course - Re-evaluation Re-evalutation: 09/26/18 23:55 UA shows UTI. Will discharge with antibiotics - Vital Signs Vital signs: Temp Pulse Resp BP Pulse Ox 98.2 F 86 16 145/60 H 96 09/26/18 22:47 09/26/18 22:47 09/26/18 22:47 09/26/18 22:47 09/26/18 22:47 - Laboratory Laboratory results interpreted by me: 09/26/18 22:45 Urine Protein 100 H Urine Glucose (UA) 50 H Urine Blood LARGE H Ur Leukocyte Esterase LARGE H Discharge - Discharge Clinical Impression: UTI (urinary tract infection) Qualifiers: Urinary tract infection type: site unspecified Hematuria presence: without hematuria Qualified Code(s): N39.0 - Urinary tract infection, site not specified Condition: Good Disposition: HOME, SELF-CARE Instructions: Urinary Tract Infection ([facility]), Nitrofurantoin ([facility]) Prescriptions: Nitrofurantoin Macrocrystal [Macrodantin] 100 mg PO BID #14 capsule Referrals: RENALDO DAMON DO [Primary Care Provider] - Follow up as needed
== END 2018-09-27 00:16 | disposition home or self-care (01) ==
LOC: ER 22:32
DX: N39.0 Urinary tract infection, site not specified (principal); I10 Essential (primary) hypertension; J45.909 Unspecified asthma, uncomplicated; E11.9 Type 2 diabetes mellitus without complications; Z88.5 Allergy status to narcotic agent; Z88.0 Allergy status to penicillin; Z88.2 Allergy status to sulfonamides; Z88.8 Allergy status to other drugs, medicaments and biological substances
CPT/HCPCS: 99283; 81001; J3490

== ENCOUNTER 2018-12-25 20:35 | Emergency (ER) | payer MEDICAID ==
[2018-12-25] MEDS ORDERED: ACETAMINOPHEN 325 MG TABLET ONE (22:57)
[2018-12-25] MEDS ORDERED: ACETAMINOPHEN 325 MG TABLET PO ONE (22:57)
--- NOTE | 2018-12-25 23:40 | RADIOLOGY REPORT (SQ) ---
EXAM DESCRIPTION: Left hand RadLex: XR HAND 3 OR MORE VIEWS Views: 3 CLINICAL HISTORY: 53 years Female, pain and swelling COMPARISON: None. FINDINGS: No acute fracture or dislocation. Ring is noted on the 3rd finger. No lytic bone changes or periosteal reaction. No soft tissue air. IMPRESSION: 1. No acute findings.
--- NOTE | 2018-12-26 00:59 | ER Document Report ---
ED Hand/Wrist Injury - General Chief Complaint: Hand Swelling Stated Complaint: LEFT HAND NUMBNESS Time Seen by Provider: 12/26/18 00:29 Primary Care Provider: RENALDO DAMON DO [Primary Care Provider] - Follow up as needed TRAVEL OUTSIDE OF THE [place] IN LAST 30 DAYS: No - HPI Notes: This is a 53-year-old female who presents to the complaint of left hand swelling and pain that started today. She denies any trauma. She describes arthralgias of her left and joints. Pain is worse with palpation. No cardiopulmonary symptoms. No trauma. Describes symptoms as mild. She denies any rash. - Related Data Allergies/Adverse Reactions: tramadol Allergy (Intermediate, Verified 10/18/18 14:36) AMS Penicillins Allergy (Mild, Verified 10/18/18 14:36) rash Sulfa (Sulfonamide Antibiotics) Allergy (Mild, Verified 10/18/18 14:36) rash aspirin Allergy (Verified 10/18/18 14:36) NO ASA Past Medical History - Social History Smoking Status: Unknown if Ever Smoked Family History: Reviewed & Not Pertinent, CAD, CVA, DM, Hyperlipidemia, Hypertension, Malignancy, Thyroid Disfunction, Other Patient has suicidal ideation: No Patient has homicidal ideation: No - Past Medical History Cardiac Medical History: Reports: Hx Atrial Fibrillation, Hx Heart Attack - A- FIB, Hx Hypercholesterolemia, Hx Hypertension Denies: Hx Coronary Artery Disease Pulmonary Medical History: Reports: Hx Asthma, Hx Bronchitis Denies: Hx COPD, Hx Pneumonia Neurological Medical History: Reports: Hx Migraine. Denies: Hx Cerebrovascular Accident, Hx Seizures Endocrine Medical History: Reports: Hx Diabetes Mellitus Type 2, Hx Hypothyroidism Renal/ Medical History: Denies: Hx Peritoneal Dialysis GI Medical History: Reports: Hx Gastritis, Hx Gastroesophageal Reflux Disease Musculoskeletal Medical History: Reports Hx Arthritis, Reports Hx Musculoskeletal Trauma Psychiatric Medical History: Reports: Hx Anxiety, Hx Depression, Hx Schizoaffective Disorder, Hx Schizophrenia - schizo affective Past Surgical History: Reports: Hx Cholecystectomy, Hx Tubal Ligation. Denies: Hx Hysterectomy - Immunizations Immunizations up to date: Yes Hx Diphtheria, Pertussis, Tetanus Vaccination: Yes - 2012 Review of Systems - Review of Systems Musculoskeletal: Joint swelling, Muscle pain. denies: Muscle stiffness, Deformity -: Yes All other systems reviewed and negative Physical Exam - Vital signs Vitals: Temp Pulse Resp BP Pulse Ox 97.9 F 78 16 140/86 H 95 12/25/18 20:54 12/25/18 20:54 12/25/18 20:54 12/25/18 20:54 12/25/18 20:54 - HEENT Head: Normocephalic, Atraumatic Eyes: Normal Pupils: PERRL - Respiratory Respiratory status: No respiratory distress Chest status: Nontender Breath sounds: Normal Chest palpation: Normal - Cardiovascular Rhythm: Regular Heart sounds: Normal auscultation Murmur: No - Extremities General upper extremity: Nontender, Normal color, Normal ROM, Normal temperature General lower extremity: Normal inspection, Nontender, Normal color, Normal ROM, Normal temperature, Normal weight bearing. No: Ysabel's sign Hand: Other - There is slight soft tissue tenderness of the dorsum of the hand. I do not appreciate any significant swelling. There is maybe slight nonpitting edema. Both hands appear the same to me but patient thinks the left hand is swollen. Normal distal neurovascular exam of the left upper extremity. No erythema. No pitting edema.. No: Deformity - Skin Skin Temperature: Warm Skin Moisture: Dry Skin Color: Normal Course - Re-evaluation Re-evalutation: 12/26/18 00:56 Differential diagnosis includes arthritis versus nonspecific arthralgia versus inflammation. X-ray done in triage reviewed and is unremarkable. There is no clinical suspicion for infection. There is no indication for further work-up. Patient has multiple drug allergies. Will give her Tylenol for her pain. She is stable for discharge. - Vital Signs Vital signs: Temp Pulse Resp BP Pulse Ox 97.9 F 78 16 140/86 H 95 12/25/18 20:54 12/25/18 20:54 12/25/18 20:54 12/25/18 20:54 12/25/18 20:54 - Diagnostic Test Radiology reviewed: Reports reviewed Discharge - Discharge Clinical Impression: Arthralgia Qualifiers: Joint pain location: hand Laterality: left Qualified Code(s): M25.542 - Pain in joints of left hand Condition: Good Disposition: HOME, SELF-CARE Instructions: Arthralgia ([facility]) Additional Instructions: Take Tylenol as needed for pain. Referrals: RENALDO DAMON DO [Primary Care Provider] - Follow up tomorrow
[2018-12-26 01:30] VITALS: BP 148/79
== END 2018-12-26 01:30 | disposition home or self-care (01) ==
LOC: ER 20:35
DX: M25.542 Pain in joints of left hand (principal); M79.10 Myalgia, unspecified site; M25.40 Effusion, unspecified joint; I10 Essential (primary) hypertension; J45.909 Unspecified asthma, uncomplicated; E11.9 Type 2 diabetes mellitus without complications; Z88.5 Allergy status to narcotic agent; Z88.0 Allergy status to penicillin; Z88.2 Allergy status to sulfonamides; Z88.8 Allergy status to other drugs, medicaments and biological substances
CPT/HCPCS: 99283; 73130; J3490

== ENCOUNTER 2019-01-17 17:51 | Emergency (ER) | payer MEDICAID ==
--- NOTE | 2019-01-17 18:19 | ER Document Report ---
ED Medical Screen (RME) - General Chief Complaint: Toe Injury Stated Complaint: HEADACHE Time Seen by Provider: 01/17/19 18:16 Primary Care Provider: RENALDO DAMON DO [Primary Care Provider] - Follow up as needed Mode of Arrival: Ambulatory Information source: Patient Notes: 53-year-old female presented to ED for complaint of headache for 2 weeks and with nausea. She also is here for a toe injury. She states she hit her toe on a rolling chair metal just before she came during her great toe just behind the toenail. Patient is alert oriented respirations regular and unlabored. She has a history of high blood pressure cholesterol diabetes A. fib. States is been a while since she had a menstrual cycle. I have greeted and performed a rapid initial assessment of this patient. A comprehensive ED assessment and evaluation of the patient, analysis of test results and completion of medical decision making process will be conducted by an additional ED providers. TRAVEL OUTSIDE OF THE [place] IN LAST 30 DAYS: No - Related Data Allergies/Adverse Reactions: tramadol Allergy (Intermediate, Verified 10/18/18 14:36) AMS Penicillins Allergy (Mild, Verified 10/18/18 14:36) rash Sulfa (Sulfonamide Antibiotics) Allergy (Mild, Verified 10/18/18 14:36) rash aspirin Allergy (Verified 10/18/18 14:36) NO ASA Past Medical History - Past Medical History Cardiac Medical History: Reports: Hx Atrial Fibrillation, Hx Heart Attack - A- FIB, Hx Hypercholesterolemia, Hx Hypertension Denies: Hx Coronary Artery Disease Pulmonary Medical History: Reports: Hx Asthma, Hx Bronchitis Denies: Hx COPD, Hx Pneumonia Neurological Medical History: Reports: Hx Migraine. Denies: Hx Cerebrovascular Accident, Hx Seizures Endocrine Medical History: Reports: Hx Diabetes Mellitus Type 2, Hx Hypothyroidism Renal/ Medical History: Denies: Hx Peritoneal Dialysis GI Medical History: Reports: Hx Gastritis, Hx Gastroesophageal Reflux Disease Musculoskeltal Medical History: Reports Hx Arthritis, Reports Hx Musculoskeletal Trauma Psychiatric Medical History: Reports: Hx Anxiety, Hx Depression, Hx Schizoaffective Disorder, Hx Schizophrenia - schizo affective Past Surgical History: Reports: Hx Cholecystectomy, Hx Tubal Ligation. Denies: Hx Hysterectomy - Immunizations Immunizations up to date: Yes Hx Diphtheria, Pertussis, Tetanus Vaccination: Yes - 2012 Physical Exam - Vital signs Vitals: Temp Pulse Resp BP Pulse Ox 98.0 F 115 H 17 156/92 H 95 01/17/19 17:56 01/17/19 17:56 01/17/19 17:56 01/17/19 17:56 01/17/19 17:56 Course - Vital Signs Vital signs: Temp Pulse Resp BP Pulse Ox 98.0 F 115 H 17 156/92 H 95 01/17/19 17:56 01/17/19 17:56 01/17/19 17:56 01/17/19 17:56 01/17/19 17:56 Doctor's Discharge - Discharge Referrals: RENALDO DAMON DO [Primary Care Provider] - Follow up as needed
[2019-01-17] MEDS ORDERED: ACETAMINOPHEN 325 MG TABLET PO ONE (18:20)
--- NOTE | 2019-01-17 19:35 | RADIOLOGY REPORT (SQ) ---
EXAM DESCRIPTION: FOOT LEFT COMPLETE COMPLETED DATE/TIME: 01/17/2019 6:54 pm REASON FOR STUDY: pain and injury COMPARISON: None. NUMBER OF VIEWS: Three views. TECHNIQUE: AP, lateral and oblique radiographic images acquired of the left foot. LIMITATIONS: None. FINDINGS: MINERALIZATION: Normal. BONES: No acute fracture or dislocation. No worrisome bone lesions. JOINTS: No effusions. SOFT TISSUES: No soft tissue swelling. No foreign body. OTHER: No other significant finding. IMPRESSION: NO RADIOGRAPHIC EVIDENCE OF ACUTE INJURY. TECHNICAL DOCUMENTATION: JOB ID: [id number] [employer]- All Rights Reserved Reading location - IP/workstation name: [email or web address]
[2019-01-17] MEDS ORDERED: BUTALB/ACETAMINOPHEN/CAFFEINE 1 TAB EACH PO ONE (19:36)
--- NOTE | 2019-01-17 19:37 | ER Document Report ---
ED Extremity Problem, Lower - General Chief Complaint: Headache <24 hrs old Stated Complaint: HEADACHE Time Seen by Provider: 01/17/19 18:16 Primary Care Provider: RENALDO DAMON DO [Primary Care Provider] - Follow up as needed Mode of Arrival: Ambulatory Information source: Patient TRAVEL OUTSIDE OF THE [place] IN LAST 30 DAYS: No - HPI Notes: Patient presents with 2 complaints. She states she has had a headache for 2 to 3 days. It is diffuse and throbbing. It feels like her previous migraine headaches. No trauma. No fever. No cough cold or congestion. This headache is described as moderate to severe. It is throbbing. It is constant. She states she just takes Tylenol Motrin for the pain but this is not relieved it. The pain does radiate throughout her head. No sinus congestion. She also states that approximately 3 hours before arrival she hit her left toe on a chair and it is now throbbing and painful. - Related Data Allergies/Adverse Reactions: tramadol Allergy (Intermediate, Verified 10/18/18 14:36) AMS Penicillins Allergy (Mild, Verified 10/18/18 14:36) rash Sulfa (Sulfonamide Antibiotics) Allergy (Mild, Verified 10/18/18 14:36) rash aspirin Allergy (Verified 10/18/18 14:36) NO ASA Home Medications: diabetes, cholesterol, and others "hard to recall" Past Medical History - General Information source: Patient - Social History Smoking Status: Former Smoker Frequency of alcohol use: Occasional Drug Abuse: None Family History: Reviewed & Not Pertinent, CAD, CVA, DM, Hyperlipidemia, Hypertension, Malignancy, Thyroid Disfunction, Other Patient has suicidal ideation: No Patient has homicidal ideation: No - Past Medical History Cardiac Medical History: Reports: Hx Atrial Fibrillation, Hx Heart Attack - A- FIB, Hx Hypercholesterolemia, Hx Hypertension Denies: Hx Coronary Artery Disease Pulmonary Medical History: Reports: Hx Asthma, Hx Bronchitis Denies: Hx COPD, Hx Pneumonia Neurological Medical History: Reports: Hx Migraine. Denies: Hx Cerebrovascular Accident, Hx Seizures Endocrine Medical History: Reports: Hx Diabetes Mellitus Type 2, Hx Hypothyroidism Renal/ Medical History: Denies: Hx Peritoneal Dialysis GI Medical History: Reports: Hx Gastritis, Hx Gastroesophageal Reflux Disease Musculoskeletal Medical History: Reports Hx Arthritis, Reports Hx Musculoskeletal Trauma Psychiatric Medical History: Reports: Hx Anxiety, Hx Depression, Hx Schizoaffective Disorder, Hx Schizophrenia - schizo affective Past Surgical History: Reports: Hx Cholecystectomy, Hx Tubal Ligation. Denies: Hx Hysterectomy - Immunizations Immunizations up to date: Yes Hx Diphtheria, Pertussis, Tetanus Vaccination: Yes - 2012 Review of Systems - Review of Systems Constitutional: denies: Chills, Fever Cardiovascular: denies: Chest pain, Palpitations Respiratory: denies: Cough, Short of breath -: Yes All other systems reviewed and negative Physical Exam - Vital signs Vitals: Temp Pulse Resp BP Pulse Ox 98.0 F 115 H 17 156/92 H 95 01/17/19 17:56 01/17/19 17:56 01/17/19 17:56 01/17/19 17:56 01/17/19 17:56 Interpretation: Tachycardic - General General appearance: Appears well, Alert - HEENT Head: Normocephalic, Atraumatic Eyes: Normal Pupils: PERRL - Respiratory Respiratory status: No respiratory distress Chest status: Nontender Breath sounds: Normal Chest palpation: Normal - Cardiovascular Rhythm: Tachycardia Heart sounds: Normal auscultation Murmur: No - Abdominal Inspection: Normal Distension: No distension Bowel sounds: Normal Tenderness: Nontender Organomegaly: No organomegaly - Back Back: Normal, Nontender - Extremities General upper extremity: Normal inspection, Nontender, Normal color, Normal ROM, Normal temperature General lower extremity: Tender - Left great toe is erythematous and diffusely tender., Normal temperature. No: Ysabel's sign - Neurological Neuro grossly intact: Yes Cognition: Normal Orientation: AAOx4 [place] Coma Scale Eye Opening: Spontaneous Becca Coma Scale Verbal: Oriented [place] Coma Scale Motor: Obeys Commands Becca Coma Scale Total: 15 Speech: Normal Cranial nerves: Normal Cerebellar coordination: No: Finger-nose rhombey Motor strength normal: LUE, RUE, LLE, RLE Additional motor exam normals: Equal clinical nursing assistant. No: Pronator drift Sensory: Normal - Psychological Associated symptoms: Normal affect, Normal mood - Skin Skin Temperature: Warm Skin Moisture: Dry Skin Color: Normal Course - Re-evaluation Re-evalutation: 01/17/19 21:10 Patient presents with 2 complaints. She presents with toe pain after an injury. She has no evidence of fracture. Patient also presents with headache neurological exam is unremarkable and this is consistent with patient's usual migraine headache. She received relief with Fioricet and will be discharged home without medication. Upon discharge her heart rate is 90, she is no longer tachycardic. - Vital Signs Vital signs: Temp Pulse Resp BP Pulse Ox 98.0 F 115 H 17 156/92 H 95 01/17/19 17:56 01/17/19 17:56 01/17/19 17:56 01/17/19 17:56 01/17/19 17:56 - Diagnostic Test Radiology reviewed: Image reviewed, Reports reviewed Discharge - Discharge Clinical Impression: Headache Qualifiers: Headache type: unspecified Headache chronicity pattern: acute headache Intractability: intractable Qualified Code(s): R51 - Headache Contusion of great toe, left Qualifiers: Encounter type: initial encounter Damage to nail status: without damage Qualified Code(s): S90.112A - Contusion of left great toe without damage to nail, initial encounter Condition: Stable Disposition: HOME, SELF-CARE Instructions: Headache ([facility]), Contusion ([facility]) Prescriptions: Butalb/Acetaminophen/Caffeine [Fioricet (50-325-40 mg) Tablet] 1 tab PO Q4HP PRN #30 tab PRN Reason: Referrals: RENALDO DAMON DO [Primary Care Provider] - Follow up as needed
[2019-01-17 21:19] VITALS: BP 148/71
== END 2019-01-17 21:20 | disposition home or self-care (01) ==
LOC: ER 17:51
DX: R51 Headache (principal); S90.112A Contusion of left great toe without damage to nail, initial encounter; W22.03XA Walked into furniture, initial encounter; R00.0 Tachycardia, unspecified; J45.909 Unspecified asthma, uncomplicated; E78.00 Pure hypercholesterolemia, unspecified; I10 Essential (primary) hypertension; E11.9 Type 2 diabetes mellitus without complications; Z79.899 Other long term (current) drug therapy; Z87.891 Personal history of nicotine dependence; Z88.5 Allergy status to narcotic agent; Z88.0 Allergy status to penicillin; Z88.2 Allergy status to sulfonamides; Z88.8 Allergy status to other drugs, medicaments and biological substances
CPT/HCPCS: 73630; J3490 ×2; 99284

== ENCOUNTER 2019-01-22 21:06 | Emergency (ER) | payer MEDICAID ==
[2019-01-22] MEDS ORDERED: ACETAMINOPHEN 325 MG TABLET PO ONE (21:49)
[2019-01-22] MEDS ORDERED: DOXYCYCLINE HYCLATE 100 MG TABLET PO ONE (21:51)
--- NOTE | 2019-01-22 21:55 | ER Document Report ---
ED General - General Chief Complaint: infected toe Stated Complaint: LEFT TOE PAIN Time Seen by Provider: 01/22/19 21:43 Primary Care Provider: RENALDO DAMON DO [Primary Care Provider] - Follow up in 3-5 days TRAVEL OUTSIDE OF THE [place] IN LAST 30 DAYS: No - HPI Notes: Patient is a 53-year-old female that presents to the emergency department for chief complaint of toe infection. Patient reports redness and swelling around her left big toe for the last 2 days. She denies spontaneous drainage from the area. She has not been putting anything on the area. She states she has not taken any medicine at home for pain. States the pain is worse with movement and ambulation. She does report stopping that toe and having negative x-rays about 1 week ago. Past Medical History: Diabetes Past Surgical History: Reviewed in chart Social History: Reviewed in chart Family History: Reviewed and noncontributory for presenting illness Allergies: Reviewed, see documented allergy list. REVIEW OF SYSTEMS: CONSTITUTIONAL : No fever No chills No diaphoresis No recent illness EENT: No vision changes No congestion No sore throat CARDIOVASCULAR: No chest pain No palpitations RESPIRATORY: No shortness of breath No cough No difficulty breathing GASTROINTESTINAL: No abdominal pain No nausea No vomiting No diarrhea GENITOURINARY: No dysuria No hematuria No difficulty urinating MUSCULOSKELETAL: No back pain No leg pain No arm pain SKIN: No rashes toe lesions LYMPHATIC: No swollen, enlarged glands. NEUROLOGICAL: No lightheadedness No headache No weakness No paresthesias PSYCHIATRIC: No anxiety No depression PHYSICAL EXAMINATION: Vital signs reviewed, nursing noted reviewed. GENERAL: Well-appearing, overweight and in no acute distress. HEAD: Atraumatic, normocephalic. EYES: Eyes appear normal, extraocular movements intact, sclera anicteric, conjunctiva are normal. ENT: nares patent, oropharynx clear without exudates. Moist mucous membranes. NECK: Normal range of motion, supple without lymphadenopathy LUNGS: Breath sounds clear to auscultation bilaterally and equal. No wheezes rales or rhonchi. HEART: Regular rate and rhythm without murmurs ABDOMEN: Soft, nontender, normoactive bowel sounds. No rebound, guarding, or rigidity. No masses appreciated. EXTREMITIES: Nontender, good range of motion, no pitting or edema. NEUROLOGICAL: No focal neurological deficits. Moves all extremities spontaneously Motor and sensory grossly intact on exam. PSYCH: Normal mood, normal affect. SKIN: Warm, Dry, normal turgor, left great toe paronychia with mild surrounding erythema and no spontaneous drainage - Related Data Allergies/Adverse Reactions: tramadol Allergy (Intermediate, Verified 10/18/18 14:36) AMS Penicillins Allergy (Mild, Verified 10/18/18 14:36) rash Sulfa (Sulfonamide Antibiotics) Allergy (Mild, Verified 10/18/18 14:36) rash aspirin Allergy (Verified 10/18/18 14:36) NO ASA Home Medications: do not have meds with pt Past Medical History - Social History Smoking Status: Never Smoker Frequency of alcohol use: Occasional Drug Abuse: None Family History: Reviewed & Not Pertinent, CAD, CVA, DM, Hyperlipidemia, Hypertension, Malignancy, Thyroid Disfunction, Other Patient has suicidal ideation: No Patient has homicidal ideation: No - Past Medical History Cardiac Medical History: Reports: Hx Atrial Fibrillation, Hx Heart Attack - A- FIB, Hx Hypercholesterolemia, Hx Hypertension Denies: Hx Coronary Artery Disease Pulmonary Medical History: Reports: Hx Asthma, Hx Bronchitis Denies: Hx COPD, Hx Pneumonia Neurological Medical History: Reports: Hx Migraine. Denies: Hx Cerebrovascular Accident, Hx Seizures Endocrine Medical History: Reports: Hx Diabetes Mellitus Type 2, Hx Hypothyroidism Renal/ Medical History: Denies: Hx Peritoneal Dialysis GI Medical History: Reports: Hx Gastritis, Hx Gastroesophageal Reflux Disease Musculoskeletal Medical History: Reports Hx Arthritis, Reports Hx Musculoskeletal Trauma Psychiatric Medical History: Reports: Hx Anxiety, Hx Depression, Hx Schizoaffective Disorder, Hx Schizophrenia - schizo affective Past Surgical History: Reports: Hx Cholecystectomy, Hx Tubal Ligation. Denies: Hx Hysterectomy - Immunizations Immunizations up to date: Yes Hx Diphtheria, Pertussis, Tetanus Vaccination: Yes - 2012 Physical Exam - Vital signs Vitals: Temp Pulse Resp BP Pulse Ox 98.8 F 97 20 143/86 H 95 01/22/19 21:24 01/22/19 21:24 01/22/19 21:24 01/22/19 21:24 01/22/19 21:24 Course - Re-evaluation Re-evalutation: 01/22/19 22:27 Vitals reviewed. Nursing notes reviewed. Patient has a small paronychia on her right great toe. She soaked her foot in warm water with Shur-Clens for 20 minutes. The paronychia was drained with moderate amount of purulent discharge. Patient does have surrounding erythema it is diabetic. She will be started on doxycycline. She will follow early next week at her primary care doctors for wound reevaluation. She will return for new or worsening symptoms. - Vital Signs Vital signs: Temp Pulse Resp BP Pulse Ox 98.8 F 97 20 143/86 H 95 01/22/19 21:24 01/22/19 21:24 01/22/19 21:24 01/22/19 21:24 01/22/19 21:24 Procedures - Incision and Drainage Left Great toe Time completed: 22:28 Type: Simple Needle Size: 18 Incision Method: Incision made with needle Notes: 01/22/19 22:28 Left great toe soaked in Shur-Clens and warm water for 20 minutes. An 18-gauge needle was used to gently lift and separate skin surrounding the nail to allow for drainage. Moderate amount of purulent drainage was expressed. Patient tolerated well without immediate complication. Discharge - Discharge Clinical Impression: Paronychia of toe of left foot Condition: Stable Disposition: HOME, SELF-CARE Instructions: Paronychia ([facility]) Additional Instructions: Please return to the emergency department if you have any worsening, or concern of your symptoms. Please return to the emergency department if you develop crease redness swelling or pain at the affected site or fevers. Please follow-up with your primary care physician in 2-3 days and any other recommended physicians. If prescribed, take all medications as directed. If you have any questions or concerns do not hesitate to return the emergency department for evaluation. Soak your foot in warm water for 15 minutes at a time twice a day to help with drainage of your paronychia Prescriptions: Doxycycline Hyclate 100 mg PO BID #10 capsule Referrals: RENALDO DAMON DO [Primary Care Provider] - Follow up in 3-5 days
[2019-01-22 23:12] VITALS: BP 163/82
== END 2019-01-22 23:11 | disposition home or self-care (01) ==
LOC: ER 21:06
PROC: 0H9NXZZ Drainage of Left Foot Skin, External Approach (ICD-10-PCS; principal; 2019-01-22)
DX: L03.032 Cellulitis of left toe (principal); M79.675 Pain in left toe(s); L08.9 Local infection of the skin and subcutaneous tissue, unspecified; E11.9 Type 2 diabetes mellitus without complications; I25.2 Old myocardial infarction; I10 Essential (primary) hypertension; J45.909 Unspecified asthma, uncomplicated
CPT/HCPCS: 99283; 10060; J3490 ×2

== ENCOUNTER 2019-01-31 19:41 | Emergency (ER) | payer MEDICAID ==
--- NOTE | 2019-01-31 20:02 | ER Document Report ---
HPI - HPI Patient complains to provider of: sprained ankle Time Seen by Provider: 01/31/19 19:51 Context: 53-year-old female with diabetes presents to the emergency department with chief complaint of a sprained left ankle sustained last week. Patient states that she sprained her ankle 2 months ago and came here and had a negative x-ray. Patient states that she twisted her foot last week and "was able to catch her ride with my daughter" to the emergency department because she is being seen for another reason. That is what prompted the patient to seek emergency care. Patient has not seen her primary doctor about this. Patient is able to bear weight on it. Patient does complain of pain radiates up to her proximal fibula, denies any loss of sensation, denies any color changes in her skin. - REPRODUCTIVE Reproductive: DENIES: : Past Medical History - Social History Smoking Status: Unknown if Ever Smoked Family History: Reviewed & Not Pertinent, CAD, CVA, DM, Hyperlipidemia, Hypertension, Malignancy, Thyroid Disfunction, Other - Past Medical History Cardiac Medical History: Reports: Hx Atrial Fibrillation, Hx Heart Attack - A- FIB, Hx Hypercholesterolemia, Hx Hypertension Denies: Hx Coronary Artery Disease Pulmonary Medical History: Reports: Hx Asthma, Hx Bronchitis Denies: Hx COPD, Hx Pneumonia Neurological Medical History: Reports: Hx Migraine. Denies: Hx Cerebrovascular Accident, Hx Seizures Endocrine Medical History: Reports: Hx Diabetes Mellitus Type 2, Hx Hypothyroidism Renal/ Medical History: Denies: Hx Peritoneal Dialysis GI Medical History: Reports: Hx Gastritis, Hx Gastroesophageal Reflux Disease Musculoskeletal Medical History: Reports Hx Arthritis, Reports Hx Musculoskeletal Trauma Psychiatric Medical History: Reports: Hx Anxiety, Hx Depression, Hx Schizoaffective Disorder, Hx Schizophrenia - schizo affective Past Surgical History: Reports: Hx Cholecystectomy, Hx Tubal Ligation. Denies: Hx Hysterectomy - Immunizations Immunizations up to date: Yes Hx Diphtheria, Pertussis, Tetanus Vaccination: Yes - 2012 Vertical Provider Document - CONSTITUTIONAL Notes: PHYSICAL EXAMINATION: Reviewed vital signs and charting by RN GENERAL: Alert, interacts well. No acute distress. HEAD: Normocephalic, atraumatic. EYES: Pupils equal and round. Extraocular movements intact. ENT: Oral mucosa moist, tongue midline. NECK: Full range of motion. Trachea midline. EXTREMITIES: Moves all 4 extremities spontaneously. Mild edema over the anterior left lateral malleolus, DP pulse palpated, normal range of motion, tenderness to palpation over the anterior talofibular ligament, No cyanosis. PSYCH: Normal affect, normal mood. SKIN: Warm, dry, normal turgor. No rashes or lesions noted. - INFECTION CONTROL TRAVEL OUTSIDE OF THE [place] IN LAST 30 DAYS: No Course - Re-evaluation Re-evalutation: 01/31/19 20:04 Well-appearing in no acute distress. I am going to obtain imaging because patient does have proximal fibula pain and I want to ensure we are not missing a fracture.. 01/31/19 20:16 01/31/19 21:36 X-rays were negative for any fracture to include the proximal fibula and the lateral malleolus. Patient again with a recurrent sprain and she will be placed in an Jairo wrap and discharged with follow-up. - Vital Signs Vital signs: Temp Pulse Resp BP Pulse Ox 98.3 F 81 16 151/87 H 91 L 01/31/19 19:46 01/31/19 19:46 01/31/19 19:46 01/31/19 19:46 01/31/19 19:46 Discharge - Discharge Clinical Impression: Left ankle sprain Qualifiers: Encounter type: subsequent encounter Involved ligament of ankle: anterior talofibular ligament Qualified Code(s): S93.492D - Sprain of other ligament of left ankle, subsequent encounter Condition: Good Disposition: HOME, SELF-CARE Additional Instructions: You have a recurrent sprain ankle of your right foot. Keep your foot elevated, apply ice 20 minutes every 2 hours, and use the Jairo wrap to help reduce the swelling. You should take Tylenol 1000 mg every 6 hours as needed for pain. Please return if you have worsening pain and swelling, fever greater than 101, you notice spreading redness from the area, or have any other symptoms that are concerning to you. Please follow-up with orthopedic surgery if your symptoms have not improved in the next 2-3 weeks. Referrals: RENALDO DAMON, [Primary Care Provider] - Follow up as needed
--- NOTE | 2019-01-31 21:26 | RADIOLOGY REPORT (SQ) ---
2 VIEWS OF LEFT LEG EXAM DATE: 01/31/2019 8:10 PM [employer] HISTORY: fall, pain proximal fibula. COMPARISON: None. FINDINGS: No acute fracture or dislocation is seen. The joint spaces are preserved. No radiopaque foreign body is identified. IMPRESSION: No acute fracture or malalignment.
[2019-01-31] MEDS ORDERED: ACETAMINOPHEN 325 MG TABLET PO ONE (21:42)
[2019-01-31 22:15] VITALS: BP 143/69
== END 2019-01-31 22:14 | disposition home or self-care (01) ==
LOC: ER 19:41
DX: S93.402A Sprain of unspecified ligament of left ankle, initial encounter (principal); M89.8X6 Other specified disorders of bone, lower leg; X50.1XXA Overexertion from prolonged static or awkward postures, initial encounter; E11.9 Type 2 diabetes mellitus without complications; I10 Essential (primary) hypertension; J45.909 Unspecified asthma, uncomplicated
CPT/HCPCS: 73590; J3490; 99283

== ENCOUNTER 2019-03-13 16:51 | Emergency (ER) | payer MEDICAID ==
[2019-03-13] MEDS ORDERED: ONDANSETRON 4 MG TAB.RAPDIS PO ONE (17:08)
[2019-03-13] MEDS ORDERED: MORPHINE SULFATE 10 MG/ML INJ IV ONE (17:08)
[2019-03-13] MEDS ORDERED: NORMAL SALINE 1000 ML 1,000 ML IV ONE (17:08)
--- NOTE | 2019-03-13 17:12 | ER Document Report ---
ED Medical Screen (RME) - General Chief Complaint: Flank Pain Stated Complaint: LEFT FLANK PAIN,VOMITING Time Seen by Provider: 03/13/19 17:06 Primary Care Provider: RENALDO DAMON DO [Primary Care Provider] - Follow up as needed TRAVEL OUTSIDE OF THE [place] IN LAST 30 DAYS: No - HPI Notes: 03/13/19 17:11 53 year old female to the ED with C/O left flank pain that began this morning. She admits to associated NV. Admits to chills. Denies hx of kidney stones. Denies any urinary frequency or dysuria. She has not taken anything for her pain. I performed a brief medical screening exam on the patient and determined that the patient will need further management by mainside provider. I have placed initial orders to help expedite the patient's care today. - Related Data Allergies/Adverse Reactions: tramadol Allergy (Intermediate, Verified 03/13/19 17:06) AMS Penicillins Allergy (Mild, Verified 03/13/19 17:06) rash Sulfa (Sulfonamide Antibiotics) Allergy (Mild, Verified 03/13/19 17:06) rash aspirin Allergy (Verified 03/13/19 17:06) NO ASA Past Medical History - Past Medical History Cardiac Medical History: Reports: Hx Atrial Fibrillation, Hx Heart Attack - A- FIB, Hx Hypercholesterolemia, Hx Hypertension Denies: Hx Coronary Artery Disease Pulmonary Medical History: Reports: Hx Asthma, Hx Bronchitis Denies: Hx COPD, Hx Pneumonia Neurological Medical History: Reports: Hx Migraine. Denies: Hx Cerebrovascular Accident, Hx Seizures Endocrine Medical History: Reports: Hx Diabetes Mellitus Type 2, Hx Hypothyroidism Renal/ Medical History: Denies: Hx Peritoneal Dialysis GI Medical History: Reports: Hx Gastritis, Hx Gastroesophageal Reflux Disease Musculoskeltal Medical History: Reports Hx Arthritis, Reports Hx Musculoskeletal Trauma Psychiatric Medical History: Reports: Hx Anxiety, Hx Depression, Hx Schizoaffective Disorder, Hx Schizophrenia - schizo affective Past Surgical History: Reports: Hx Cholecystectomy, Hx Tubal Ligation. Denies: Hx Hysterectomy - Immunizations Immunizations up to date: Yes Hx Diphtheria, Pertussis, Tetanus Vaccination: Yes - 2012 Physical Exam - Vital signs Vitals: Temp Pulse Resp BP Pulse Ox 98.5 F 95 18 151/94 H 96 03/13/19 16:57 03/13/19 16:57 03/13/19 16:57 03/13/19 16:57 03/13/19 16:57 Course - Vital Signs Vital signs: Temp Pulse Resp BP Pulse Ox 98.5 F 95 18 151/94 H 96 03/13/19 16:57 03/13/19 16:57 03/13/19 16:57 03/13/19 16:57 03/13/19 16:57 Doctor's Discharge - Discharge Referrals: RENALDO DAMON DO [Primary Care Provider] - Follow up as needed
--- NOTE | 2019-03-13 18:08 | RADIOLOGY REPORT (SQ) ---
EXAM DESCRIPTION: CT ABD/PELVIS NO ORAL OR IV COMPLETED DATE/TIME: 03/13/2019 5:34 pm REASON FOR STUDY: flank pain COMPARISON: 03/18/2017 TECHNIQUE: CT scan of the abdomen and pelvis performed without intravenous or oral contrast. Images reviewed with lung, soft tissue, and bone windows. Reconstructed coronal and sagittal MPR images revi ewed. All images stored on PACS. All CT scanners at this facility use dose modulation, iterative reconstruction, and/or weight based d osing when appropriate to reduce radiation dose to as low as reasonably achievable (ALARA). [facility]: Dose Right [facility]: CareDose [facility]: Dose Right [facility]: Teradose 4D [facility]: ViaBill RADIATION DOSE: CT Rad equipment meets quality standard of care and radiation dose reduction techniq ues were employed. CTDIvol: 19.8 mGy. DLP: 1041 mGy-cm.mGy. LIMITATIONS: None. FINDINGS: LOWER CHEST: No significant findings. No nodules or infiltrates. NON-CONTRASTED LIVER, SPLEEN, ADRENALS: Evaluation limited by lack of IV contrast. No identified sign ificant masses. PANCREAS: No masses. No peripancreatic inflammatory changes. GALLBLADDER: Surgically absent. RIGHT KIDNEY AND URETER: Pelvic location. No cysts identified. No solid masses. No calcified stones . No hydronephrosis or hydroureter. LEFT KIDNEY AND URETER: No cysts identified. No solid masses. No calcified stones. No hydronephrosis or hydroureter. AORTA AND RETROPERITONEUM: No aneurysm. No retroperitoneal masses or adenopathy. BOWEL AND PERITONEAL CAVITY: No obvious masses or inflammatory changes. No free fluid. APPENDIX: Normal. PELVIS, BLADDER, AND ABDOMINAL WALL:No abnormal masses. No free fluid. Unremarkable bladder. BONES: No acute findings. OTHER: No other significant finding. IMPRESSION: NO ACUTE FINDINGS. TECHNICAL DOCUMENTATION: JOB ID: [id number] [id number] Quality ID # [id number]: Final reports with documentation of one or more dose reduction techniques (e.g., Au tomated exposure control, adjustment of the mA and/or kV according to patient size, use of iterative reconstruction technique) 2010 [employer]- All Rights Reserved Reading location - IP/workstation name: [email or web address]
[2019-03-13 18:34] LABS: ABSOLUTE BASOPHILS # (AUTO) 0.1 10^3/uL (0.0-0.2); ABSOLUTE EOSINOPHILS # (AUTO) 0.1 10^3/uL (0.0-0.6); ABSOLUTE LYMPHOCYTES (AUTO) 2.2 10^3/uL (0.5-4.7); ABSOLUTE MONOCYTES (AUTO) 0.5 10^3/uL (0.1-1.4); ABSOLUTE NEUT (AUTO) 5.9 10^3/uL (1.7-8.2); HEMATOCRIT 44.5 % (36.0-47.0); HEMOGLOBIN 14.5 g/dL (12.0-15.5); MEAN CORPUSCULAR HEMOGLOBIN 31.5 pg (27.0-33.4); MEAN CORPUSCULAR HGB CONC 32.7 g/dL (32.0-36.0); MEAN CORPUSCULAR VOLUME 96 fl (80-97); MONOCYTES % (AUTO) 5.2 % (3-13); PLATELET COUNT 322 10^3/uL (150-450); RED BLOOD COUNT 4.61 10^6/uL (3.72-5.28); RED CELL DISTRIBUTION WIDTH 13.7 % (11.5-14.0); SEGMENTED NEUTROPHILS % (AUTO) 67.8 % (42-78); TOTAL CELLS COUNTED % (AUTO) 100 %; WHITE BLOOD COUNT 8.7 10^3/uL (4.0-10.5)
[2019-03-13 18:37] LABS: APPEARANCE,URINE SLIGHTLY-CLOUDY; BILIRUBIN,URINE NEGATIVE (NEGATIVE); COLOR,URINE YELLOW; GLUCOSE, URINE NEGATIVE (NEGATIVE); KETONES,URINE TRACE mg/dL (NEGATIVE); LEUKOCYTE ESTERASE,URINE TRACE (NEGATIVE); NITRITE,URINE NEGATIVE (NEGATIVE); PROTEIN,URINE NEGATIVE (NEGATIVE); URINE SPECIFIC GRAVITY 1.012; UROBILINOGEN,URINE NEGATIVE mg/dL (<2.0)
[2019-03-13 18:52] LABS: ALBUMIN 4.6 g/dL (3.5-5.0); ALKALINE PHOSPHATASE 160 U/L (38-126); ANION GAP 18 (5-19); ASPARTATE AMINO TRANSFERASE 41 U/L (14-36); BILIRUBIN,DIRECT 0.2 mg/dL (0.0-0.4); BILIRUBIN,TOTAL 0.8 mg/dL (0.2-1.3); BLOOD UREA NITROGEN 6 mg/dL (7-20); CALCIUM 10.4 mg/dL (8.4-10.2); CARBON DIOXIDE 23 mmol/L (22-30); CHLORIDE 99 mmol/L (98-107); GLUCOSE 194 mg/dL (75-110); POTASSIUM 4.7 mmol/L (3.6-5.0); TOTAL PROTEIN 7.8 g/dL (6.3-8.2)
--- NOTE | 2019-03-13 21:05 | ER Document Report ---
ED General - General Chief Complaint: Flank Pain Stated Complaint: LEFT FLANK PAIN,VOMITING Time Seen by Provider: 03/13/19 17:06 Primary Care Provider: RENALDO DAMON DO [Primary Care Provider] - Follow up as needed Notes: 53-year-old female with past medical history of kidney failure, UTI, pyelonephritis presents with left flank pain nausea/vomiting, and chills that started this morning. Patient also states she has been having some urinary frequency. Patient states she does get UTIs pretty often. Patient states that the left flank pain comes and goes. Nothing seems to make it better, nothing seems to make it worse. Patient denies any fevers, chest pain, diarrhea, abdominal pain. TRAVEL OUTSIDE OF THE [place] IN LAST 30 DAYS: No - Related Data Allergies/Adverse Reactions: tramadol Allergy (Intermediate, Verified 03/13/19 17:06) AMS Penicillins Allergy (Mild, Verified 03/13/19 17:06) rash Sulfa (Sulfonamide Antibiotics) Allergy (Mild, Verified 03/13/19 17:06) rash aspirin Allergy (Verified 03/13/19 17:06) NO ASA Past Medical History - Social History Smoking Status: Never Smoker Family History: Reviewed & Not Pertinent, CAD, CVA, DM, Hyperlipidemia, Hypertension, Malignancy, Thyroid Disfunction, Other Patient has suicidal ideation: No Patient has homicidal ideation: No - Past Medical History Cardiac Medical History: Reports: Hx Atrial Fibrillation, Hx Heart Attack - A- FIB, Hx Hypercholesterolemia, Hx Hypertension Denies: Hx Coronary Artery Disease Pulmonary Medical History: Reports: Hx Asthma, Hx Bronchitis Denies: Hx COPD, Hx Pneumonia Neurological Medical History: Reports: Hx Migraine. Denies: Hx Cerebrovascular Accident, Hx Seizures Endocrine Medical History: Reports: Hx Diabetes Mellitus Type 2, Hx Hypothyroidism Renal/ Medical History: Denies: Hx Peritoneal Dialysis GI Medical History: Reports: Hx Gastritis, Hx Gastroesophageal Reflux Disease Musculoskeletal Medical History: Reports Hx Arthritis, Reports Hx Musculoskeletal Trauma Psychiatric Medical History: Reports: Hx Anxiety, Hx Depression, Hx Schizoaffective Disorder, Hx Schizophrenia - schizo affective Past Surgical History: Reports: Hx Cholecystectomy, Hx Tubal Ligation. Denies: Hx Hysterectomy - Immunizations Immunizations up to date: Yes Hx Diphtheria, Pertussis, Tetanus Vaccination: Yes - 2012 Review of Systems - Review of Systems Notes: Constitutional: Positive for chills. Negative for fever. HENT: Negative for sore throat. Eyes: Negative for visual changes. Cardiovascular: Negative for chest pain. Respiratory: Negative for shortness of breath. Gastrointestinal: Positive for left flank pain. Negative for abdominal pain, vomiting or diarrhea. Genitourinary: Positive for frequency. Negative for dysuria. Musculoskeletal: Negative for back pain. Skin: Negative for rash. Neurological: Negative for headaches, weakness or numbness. 10 point ROS negative except as marked above and in HPI. Physical Exam - Vital signs Vitals: Temp Pulse Resp BP Pulse Ox 98.5 F 95 18 151/94 H 96 03/13/19 16:57 03/13/19 16:57 03/13/19 16:57 03/13/19 16:57 03/13/19 16:57 - Notes Notes: GENERAL: Well-appearing, well-nourished and in no acute distress. HEAD: Atraumatic, normocephalic. EYES: Extraocular movements intact, sclera anicteric, conjunctiva are normal. NECK: Normal range of motion, supple without lymphadenopathy or JVD. LUNGS: Breath sounds clear to auscultation bilaterally and equal. No wheezes rales or rhonchi. HEART: Regular rate and rhythm without murmurs, rubs or gallops. ABDOMEN: Soft, nontender. Mild left CVA tenderness. No guarding, no rebound. No masses appreciated. EXTREMITIES: Normal range of motion, no pitting or edema. No clubbing or cyanosis. NEUROLOGICAL: Cranial nerves II through XII grossly intact. Normal speech, normal gait. PSYCH: Normal mood, normal affect. SKIN: Warm, Dry, normal turgor, no rashes or lesions noted. Course - Re-evaluation Re-evalutation: 03/13/19 53-year-old female presents with left flank pain, nausea/vomiting, chills, urinary frequency since this morning. Patient has a history of kidney failure, kidney infection, UTIs. Patient denies any history of kidney stones. UA does show trace ketones and trace leukocyte Estrace. Lab work is otherwise unremarkable, AST is mildly elevated as is alk phos. CT abdomen/pelvis without contrast shows no acute findings. Discussed all results with patient. Printed out copy of CT results and discussed them with the patient. We will treat patient for possible UTI/possible pyelo with Keflex. Patient sent home with Zofrasha and Pyridium for pain control. Patient instructed that Pyridium will make urine red/orange. Strict return precautions given. All questions/concerns addressed prior to discharge. - Vital Signs Vital signs: Temp Pulse Resp BP Pulse Ox 98.5 F 95 18 151/94 H 96 03/13/19 17:06 03/13/19 17:06 03/13/19 17:06 03/13/19 17:06 03/13/19 17:06 - Laboratory Result Diagrams: 03/13/19 18:05 03/13/19 18:05 Laboratory results interpreted by me: 03/13/19 03/13/19 18:00 18:05 BUN 6 L Glucose 194 H Calcium 10.4 H AST 41 H Alkaline Phosphatase 160 H Urine Ketones TRACE H Ur Leukocyte Esterase TRACE H Discharge - Discharge Clinical Impression: Left flank pain UTI (urinary tract infection) Qualifiers: Urinary tract infection type: acute cystitis Hematuria presence: without hematuria Qualified Code(s): N30.00 - Acute cystitis without hematuria Nausea & vomiting Qualifiers: Vomiting type: unspecified Vomiting Intractability: unspecified Qualified Code(s): R11.2 - Nausea with vomiting, unspecified Condition: Stable Disposition: HOME, SELF-CARE Instructions: Antinausea Medication ([facility]), Urinary Tract Infection ([facility]) Additional Instructions: Please take Keflex as prescribed and finish all doses unless we call you to change the antibiotic based off your urine culture. Please take Pyridium as prescribed. Please note that it will turn your urine red/orange. Please take Zofran as needed for nausea/vomiting. Please follow-up with your primary care doctors in 3 to 5 days. Return to ER immediately if you start having any worsening symptoms, including vomiting not controlled by medication, fever, abdominal pain, worsening pain, burning with pain, difficulty with urinating, or any other symptoms that are concerning to you. Prescriptions: Cephalexin Monohydrate [Keflex 500 mg Capsule] 500 mg PO Q6H 10 Days #40 capsule Phenazopyridine HCl [Pyridium 200 mg Tablet] 200 mg PO TID #15 tablet Referrals: RENALDO DAMON DO [Primary Care Provider] - Follow up in 3-5 days
[2019-03-13] MEDS ORDERED: ONDANSETRON ODT 4 MG TAB (6 TAB/ER DISP) PO PRN (21:14)
[2019-03-13 21:28] VITALS: BP 149/83
== END 2019-03-13 21:40 | disposition home or self-care (01) ==
LOC: ER 16:51
DX: N30.00 Acute cystitis without hematuria (principal); R10.9 Unspecified abdominal pain; R11.2 Nausea with vomiting, unspecified; R35.0 Frequency of micturition; I48.91 Unspecified atrial fibrillation; I25.2 Old myocardial infarction; I10 Essential (primary) hypertension; J45.909 Unspecified asthma, uncomplicated; E11.9 Type 2 diabetes mellitus without complications
CPT/HCPCS: 99284; 96361; 96374; 36415; 87086; 85025; 87088; 80053; 81001; 74176; S0119; J2270; J7030

== ENCOUNTER 2019-06-18 21:09 | Inpatient (IN) | payer MEDICAID ==
[2019-06-18] MEDS ORDERED: METOPROLOL TARTRATE PF/INJ 5 MG/5 ML SDV IV ONE ×2 (21:21→21:53)
[2019-06-18 21:33] LABS: INTERNATIONAL RATION (INR) 0.99; PROTHROMBIN TIME 13.1 SEC (11.4-15.4)
[2019-06-18 21:34] LABS: ABSOLUTE EOSINOPHILS # (AUTO) 0.2 10^3/uL (0.0-0.6); ABSOLUTE LYMPHOCYTES (AUTO) 2.2 10^3/uL (0.5-4.7); ABSOLUTE MONOCYTES (AUTO) 0.8 10^3/uL (0.1-1.4); ABSOLUTE NEUT (AUTO) 10.7 10^3/uL (1.7-8.2); BASOPHILS % (AUTO) 0.3 % (0-2); EOSINOPHILS % (AUTO) 1.6 % (0-6); HEMATOCRIT 43.4 % (36.0-47.0); HEMOGLOBIN 14.4 g/dL (12.0-15.5); LYMPHOCYTES % (AUTO) 15.7 % (13-45); MEAN CORPUSCULAR HEMOGLOBIN 32.3 pg (27.0-33.4); MEAN CORPUSCULAR HGB CONC 33.2 g/dL (32.0-36.0); MEAN CORPUSCULAR VOLUME 97 fl (80-97); MONOCYTES % (AUTO) 5.5 % (3-13); PLATELET COUNT 316 10^3/uL (150-450); RED BLOOD COUNT 4.47 10^6/uL (3.72-5.28); RED CELL DISTRIBUTION WIDTH 13.9 % (11.5-14.0); SEGMENTED NEUTROPHILS % (AUTO) 76.9 % (42-78); TOTAL CELLS COUNTED % (AUTO) 100 %; WHITE BLOOD COUNT 13.9 10^3/uL (4.0-10.5)
--- NOTE | 2019-06-18 21:51 | RADIOLOGY REPORT (SQ) ---
EXAM DESCRIPTION: X-RAY CHEST- One View CLINICAL HISTORY: Shortness of breath COMPARISON: February 17, 2018 TECHNIQUE: Single view of the chest. FINDINGS: There are overlying EKG leads. There are mild patchy bibasilar opacities, similar to prior study. The pulmonary vascularity is prominent in appearance. The cardiomediastinal silhouette is stable in size. Osseous structures are stable. IMPRESSION: Mild patchy basilar opacities are similar in appearance to prior study. Clinical correlation is advised. The possibility of infection is not excluded.
--- NOTE | 2019-06-18 21:54 | ER Document Report ---
Entered by PAOLA KINGSLEY SCRIBE 06/18/192116 Acting as scribe for:BYRON PAGE IV, MD ED General - General Chief Complaint: Breathing Difficulty Stated Complaint: DIFFICULTY BREATHING Time Seen by Provider: 06/18/19 21:17 Primary Care Provider: RENALDO DAMON DO [Primary Care Provider] - Follow up as needed Mode of Arrival: Medic Information source: Patient Notes: This 53 year old female patient with a history of A fib with RVR brought in by EMS presents to the ED today with complaints of dyspnea and cough that started prior to arrival. Patient states that her chest started hurting around 1700 today because she was coughing so hard. Patient reports a "rattling" sound in her chest and swelling to her face, hands, and feet. Patient states that "I think my ribs are inflamed too." Patient notes that she has had flu exposure fro m someone who was admitted x3-4 days ago. TRAVEL OUTSIDE OF THE [place] IN LAST 30 DAYS: No - Related Data Allergies/Adverse Reactions: tramadol Allergy (Intermediate, Verified 03/13/19 17:06) AMS Penicillins Allergy (Mild, Verified 03/13/19 17:06) rash Sulfa (Sulfonamide Antibiotics) Allergy (Mild, Verified 03/13/19 17:06) rash aspirin Allergy (Verified 03/13/19 17:06) NO ASA Past Medical History - General Information source: Patient, [facility] Records - Social History Smoking Status: Former Smoker Cigarette use (# per day): No Chew tobacco use (# tins/day): No Smoking Education Provided: No Frequency of alcohol use: Occasional Drug Abuse: None Family History: Reviewed & Not Pertinent, CAD, CVA, DM, Hyperlipidemia, Hypertension, Malignancy, Thyroid Disfunction, Other Patient has suicidal ideation: No Patient has homicidal ideation: No - Past Medical History Cardiac Medical History: Reports: Hx Atrial Fibrillation, Hx Heart Attack - A- FIB, Hx Hypercholesterolemia, Hx Hypertension Pulmonary Medical History: Reports: Hx Asthma, Hx Bronchitis Neurological Medical History: Reports: Hx Migraine Endocrine Medical History: Reports: Hx Diabetes Mellitus Type 2, Hx Hypothyroidism GI Medical History: Reports: Hx Gastritis, Hx Gastroesophageal Reflux Disease Musculoskeletal Medical History: Reports Hx Arthritis, Reports Hx Musculoskeletal Trauma Psychiatric Medical History: Reports: Hx Anxiety, Hx Depression, Hx Schizoaffective Disorder, Hx Schizophrenia - schizo affective Past Surgical History: Reports: Hx Cholecystectomy, Hx Tubal Ligation - Immunizations Immunizations up to date: Yes Hx Diphtheria, Pertussis, Tetanus Vaccination: Yes - 2012 Review of Systems - Review of Systems Constitutional: See HPI. denies: Fever EENT: No symptoms reported Cardiovascular: See HPI, Chest pain - reproducible, Dyspnea Respiratory: See HPI, Cough Gastrointestinal: No symptoms reported Genitourinary: No symptoms reported Female Genitourinary: No symptoms reported Musculoskeletal: See HPI, Leg swelling, Other - Face and hand swelling Skin: No symptoms reported Hematologic/Lymphatic: No symptoms reported Neurological/Psychological: No symptoms reported -: Yes All other systems reviewed and negative Physical Exam - Vital signs Vitals: Temp Pulse Resp Pulse Ox 98.3 F 147 H 29 H 91 L 06/18/19 21:09 06/18/19 21:09 06/18/19 21:09 06/18/19 21:09 - General General appearance: Alert - HEENT Head: Normocephalic, Atraumatic Eyes: Normal Pupils: PERRL - Respiratory Respiratory status: No respiratory distress Chest status: Nontender Breath sounds: Rhonchi - Diffusely rhonchorous Chest palpation: Normal - Cardiovascular Rhythm: Regular, Tachycardia. No: Irregularly irregular Heart sounds: Normal auscultation Murmur: No Friction rub: No Gallop: None auscultated - Abdominal Inspection: Normal Distension: No distension Bowel sounds: Normal Tenderness: Nontender - Abdomen soft Organomegaly: No organomegaly - Back Back: Normal, Nontender - Extremities General upper extremity: Normal inspection General lower extremity: Normal inspection. No: Edema - Neurological Neuro grossly intact: Yes - Psychological Associated symptoms: Normal affect, Normal mood - Skin Skin Temperature: Warm Skin Moisture: Dry Skin Color: Normal Course - Re-evaluation Re-evalutation: 06/19/19 02:03 Results of ED MSE discussed with patient. All questions were answered. - Vital Signs Vital signs: Temp Pulse Resp BP Pulse Ox 99.2 F 147 H 29 H 97 06/19/19 02:03 06/18/19 21:09 06/18/19 21:09 06/18/19 21:14 - Laboratory Result Diagrams: 06/18/19 21:18 06/18/19 22:48 Laboratory results interpreted by me: 06/18/19 06/18/19 06/18/19 21:18 21:42 22:48 WBC 13.9 H Absolute Neuts (auto) 10.7 H Sodium 135.0 L Chloride 97 L Glucose 247 H Lactic Acid 2.5 H Magnesium 1.4 L Alkaline Phosphatase 146 H NT-Pro-B Natriuret Pep TSH Urine Protein Urine Glucose (UA) Urine Blood Leukocyte Esterase Rfl 06/18/19 06/18/19 06/19/19 22:48 22:48 01:21 WBC Absolute Neuts (auto) Sodium Chloride Glucose Lactic Acid Magnesium Alkaline Phosphatase NT-Pro-B Natriuret Pep 831 H TSH 7.75 H Urine Protein 100 H Urine Glucose (UA) 150 H Urine Blood SMALL H Leukocyte Esterase Rfl MODERATE H - Diagnostic Test Radiology reviewed: Reports reviewed - EKG Interpretation by Me Additional EKG results interpreted by me: 06/19/19 02:04 EKG obtained on 06/18/2019 at 2107 hrs. was interpreted by this MD. Findings: Atrial fibrillation with a rate of 155, no obvious P waves are seen, QRScomplex l appears narrow, there are no obvious visible patterns of ST segment elevation or depression to suggest acute myocardial ischemia or infarction. Impression A. fib with RVR - Consults Dr. Kota Velásquez Time consulted: 02:00 Reason for consultation: 06/19/19 02:06 a fib with rvr, leukocytosis Consulted provider: will see as inpatient Critical Care Note - Critical Care Note Total time excluding time spent on procedures (mins): 120 - a fib with rvr Discharge - Discharge Clinical Impression: Atrial fibrillation with RVR Leukocytosis, unspecified Qualifiers: Leukocytosis type: unspecified Qualified Code(s): D72.829 - Elevated white blood cell count, unspecified Condition: Good Disposition: ADMITTED INPATIENT Unit Admitted: Medical Floor Referrals: RENALDO DAMON DO [Primary Care Provider] - Follow up as needed I personally performed the services described in the documentation, reviewed and edited the documentation which was dictated to the scribe in my presence, and it accurately records my words and actions.
[2019-06-18 22:06] LABS: CREATINE KINASE MB 1.61 ng/mL (<4.55); TROPONIN I < 0.012 ng/mL
[2019-06-18 22:06] LABS: A TYPE INFLUENZA AG NEGATIVE (NEGATIVE); B INFLUENZA AG NEGATIVE (NEGATIVE)
[2019-06-18] MEDS ORDERED: DILTIAZEM HCL INJ 25 MG/5 ML VIAL IV ONE (22:32)
[2019-06-18] MEDS ORDERED: DILTIAZEM HCL/D5W 125 MG/125 ML RTUINJ IV PRN (23:17)
[2019-06-18 23:27] LABS: VENOUS BLOOD BASE EXCESS -2.3 mmol/L; VENOUS BLOOD HCO3 24.5 mmol/L (20-32); VENOUS BLOOD PH 7.31 (7.30-7.42)
[2019-06-18 23:29] LABS: ALBUMIN 4.1 g/dL (3.5-5.0); ALKALINE PHOSPHATASE 146 U/L (38-126); ANION GAP 11 (5-19); ASPARTATE AMINO TRANSFERASE 29 U/L (14-36); BILIRUBIN,DIRECT 0.3 mg/dL (0.0-0.4); BILIRUBIN,TOTAL 0.5 mg/dL (0.2-1.3); BLOOD UREA NITROGEN 11 mg/dL (7-20); CALCIUM 9.1 mg/dL (8.4-10.2); CARBON DIOXIDE 27 mmol/L (22-30); CHLORIDE 97 mmol/L (98-107); CREATINE KINASE 120 U/L (30-135); GLUCOSE 247 mg/dL (75-110); POTASSIUM 4.8 mmol/L (3.6-5.0)
--- NOTE | 2019-06-19 00:25 | RADIOLOGY REPORT (SQ) ---
CLINICAL HISTORY: a fib with rvr, dyspnea, chest pain COMPARISON: 02/17/2018. TECHNIQUE: CT CHEST ANGIOGRAPHY WITHOUT THEN WITH IV CONTRAST on 06/18/2019 10:09 PM CDT. MIPS reconstructions were generated. This exam was performed according to our departmental dose-optimization program, which includes automated exposure control, adjustment of the mA and/or kV according to patient size and/or use of iterative reconstruction technique. MIP images were generated. FINDINGS: Thoracic aorta is normal in course and caliber without aneurysm or dissection. Pulmonary arteries are adequately opacified without acute or chronic filling defects. The heart is enlarged. There is no pericardial effusion. Intrathoracic lymph nodes are not enlarged. There is no pleural effusion, pleural thickening or pneumothorax. Central airways are patent. There is mild atelectasis and scarring in the right middle lobe, lingula and anterior left lower lobe. There are no acute abnormalities within the limited images of the upper abdomen. There are no acute osseous findings. No suspicious bony lesions. IMPRESSION: No aortic dissection or aneurysm. No pulmonary embolus. No definite pneumonia.
[2019-06-19] MEDS: MAGNESIUM SULFATE/D5W 1 GM/100 ML RTUPB IV SCH ×2 (00:52→01:34)
[2019-06-19] MEDS ORDERED: NORMAL SALINE IV ONE (01:52)
[2019-06-19 01:54] LABS: APPEARANCE,URINE SLIGHTLY-CLOUDY; BILIRUBIN,URINE NEGATIVE (NEGATIVE); COLOR,URINE YELLOW; GLUCOSE, URINE 150 mg/dL (NEGATIVE); KETONES,URINE NEGATIVE (NEGATIVE); PROTEIN,URINE 100 mg/dL (NEGATIVE); UROBILINOGEN,URINE NEGATIVE mg/dL (<2.0)
[2019-06-19 01:57] LABS: URINE SPECIFIC GRAVITY > 1.060
[2019-06-19] MEDS ORDERED: AZITHROMYCIN INJ 500 MG VIAL IV ONE (01:58)
[2019-06-19] MEDS ORDERED: LEVOFLOXACIN 750 MG/D5W RTU 750 MG/150 ML RTUPB IV ONE (02:30)
[2019-06-19] MEDS ORDERED: MAGNESIUM HYDROXIDE SUSP 30 ML UDCUP PO PRN (03:47)
[2019-06-19] MEDS ORDERED: PROMETHAZINE HCL INJ 25 MG/1 ML VIAL IV PRN (03:47)
[2019-06-19] MEDS ORDERED: MAG HYDROX/AL HYDROX/SIMETH SUSP 30 ML UDCUP PO PRN (03:47)
[2019-06-19] MEDS ORDERED: GLUCAGON,HUMAN RECOMB 1 MG INJ IM PRN (03:54)
[2019-06-19] MEDS ORDERED: DEXTROSE 40% GEL 15 GM TUBE PO PRN ×2 (03:54)
[2019-06-19] MEDS ORDERED: DEXTROSE 50%-WATER 25 GM/50 ML DISP.SYRIN IV PRN ×2 (03:54)
[2019-06-19] MEDS ORDERED: DIGOXIN INJ 0.5 MG/2 ML AMPULE IV ONE (04:30)
--- NOTE | 2019-06-19 05:34 | PDOC H&P ---
History of Present Illness Admission Date/PCP: 06/19/19 02:20 RENALDO DAMON DO Patient complains of: Cough History of Present Illness: SHOSHANA BOWMAN is a 53 year old female who presented to the emergency room with an acute cough. She admits the sudden development of a severe paroxysmal cough at approximately 5 PM on the day prior to admission. Her cough caused her to have severe pain in her ribs/chest bilaterally. Her cough was accompanied by moderate to severe dyspnea and associated with mild swelling in her hands and feet. She denies other associated or accompanying signs and symptoms. She denies prior similar episodes. She admits exposure to a person who had active influenza 72 to 96 hours prior to her presentation. She has not identified any aggravating or ameliorating factors for her cough. In the emergency room she was found to have an elevated white blood count at 13,900 and a elevated lactic acid of 2.5. She was noted to be tachypneic, tachycardic (A. fib with RVR) and hypoxic on evaluation. She was treated with IV diltiazem using a bolus and continuous infusion for her tachycardia without significant improvement. He was subsequently given IV metoprolol also with a less than desired response. She also received initial antibiotic therapy in the emergency room for a possible pneumonia although no pneumonia was noted on her pulmonary evaluations including a CT scan. A coronavirus screening was administered in the ER. Patient was subsequently admitted to the hospital for further evaluation and treatment. Past Medical History Cardiac Medical History: Reports: Atrial Fibrillation, Hyperlipidema, Hypertension Denies: Congestive Heart Failure, Coronary Artery Disease, DVT, Myocardial Infarction, Pulmonary Embolism Pulmonary Medical History: Reports: Asthma, Bronchitis Denies: Chronic Obstructive Pulmonary Disease (COPD), Pneumonia EENT Medical History: Denies: Cataracts, Ears - Hearing aids Neurological Medical History: Reports: Migraine Denies: Hemorrhagic CVA, Ischemic CVA, Seizures Endocrine Medical History: Reports: Diabetes Mellitus Type 2, Hypothyroidism, Obesity Denies: Diabetes Mellitus Type 1, Hyperthyroidism Renal/ Medical History: Denies: Chronic Kidney Disease, Nephrolithiasis Malignancy Medical History: Reports: None GI Medical History: Reports: Gastroesophageal Reflux Disease Denies: Cirrhosis, Crohn's Disease, Hepatitis, Ulcerative Colitis Musculoskeltal Medical History: Reports: Arthritis Denies: Gout Skin Medical History: Denies: Eczema, Psoriasis Psychiatric Medical History: Reports: Depression, General Anxiety Disorder, Schizoaffective Disorder Denies: Alcohol Dependency, Substance Abuse, Tobacco Dependency Traumatic Medical History: Reports: None Hematology: Denies: Anemia, Bleeding Tendencies Infectious Medical History: Reports: None Past Surgical History Past Surgical History: Reports: Cholecystectomy, Tubal Ligation Social History Information Source: Patient Lives with: Spouse/Significant other Smoking Status: Former Smoker Electronic Cigarette use?: No Frequency of Alcohol Use: None Hx Recreational Drug Use: No Drugs: None Hx Prescription Drug Abuse: No - Advance Directive Resuscitation Status: Full Code Surrogate healthcare decision maker:: Salvador Campbell Family History Family History: CAD, CVA, DM, Hyperlipidemia, Hypertension, Malignancy, Thyroid Disfunction, Other - Asthma Parental Family History Reviewed: Yes Children Family History Reviewed: No Sibling(s) Family History Reviewed.: Yes Medication/Allergy Home Medications: Albuterol Sulfate [Ventolin Hfa] 1 puff IH Q4HP PRN 03/18/17 Alprazolam [Xanax] 1 mg PO TID PRN 03/18/17 Amitriptyline HCl [Elavil 25 mg Tablet] 50 mg PO QHS 03/18/17 Apixaban [Eliquis 5 mg Tablet] 5 mg PO Q12 03/18/17 Levothyroxine Sodium [Tirosint] 125 mcg PO DAILY 03/18/17 Metoprolol Succinate [Toprol Xl 25 mg Tab.sr] 25 mg PO BID 03/18/17 Tizanidine HCl [Zanaflex] 6 mg PO QID 03/18/17 Zolpidem Tartrate [Ambien] 10 mg PO QHS 03/18/17 Atorvastatin Calcium [Lipitor 40 mg Tablet] 40 mg PO DAILY 02/12/18 Brexpiprazole [Rexulti] 1 mg PO DAILY 02/12/18 Desvenlafaxine [Desvenlafaxine ER] 50 mg PO DAILY 02/12/18 Diphenhydramine HCl [Benadryl 50 mg Capsule] 50 mg PO QHS 02/12/18 Glyburide [Diabeta 2.5 Mg Tablet] 2.5 mg PO DAILY 02/12/18 Pregabalin [Lyrica 75 mg Capsule] 2 cap PO DAILY 02/12/18 Solifenacin Succinate [Vesicare] 5 mg PO DAILY 02/12/18 Dexlansoprazole [Dexilant 60 mg Capsule] 60 mg PO DAILY 02/15/18 Albuterol Sulfate [Proventil 0.5% Neb 2.5 mg/0.5 ml Vial.neb] 2.5 mg NEB Q4HP PRN #30 vial.neb 02/17/18 Doxycycline Hyclate 100 mg PO BID #14 capsule 02/17/18 Prednisone [Deltasone 20 mg Tablet] 2 tab PO DAILY 5 Days #10 tablet 02/17/18 Azithromycin [Zithromax] 250 mg PO DAILY #4 tablet 03/08/18 Ondansetron HCl [Zofran 4 mg Tablet] 1 - 2 tab PO Q6 #30 tablet 03/08/18 Prochlorperazine Maleate [Compazine] 5 mg PO Q6 #30 tablet 03/08/18 Ciprofloxacin HCl [Ciloxan 0.3% Oph Soln 2.5 ml] 1 drop OP Q4H 7 Days #1 bottle 07/05/18 Nitrofurantoin Macrocrystal [Macrodantin] 100 mg PO BID #14 capsule 09/26/18 Prochlorperazine Maleate [Compazine 10 mg Tablet] 10 mg PO Q6HP PRN #10 tablet 10/18/18 Butalb/Acetaminophen/Caffeine [Fioricet (50-325-40 mg) Tablet] 1 tab PO Q4HP PRN #30 tab 01/17/19 Doxycycline Hyclate 100 mg PO BID #10 capsule 01/22/19 Cephalexin Monohydrate [Keflex 500 mg Capsule] 500 mg PO Q6H 10 Days #40 capsule 03/13/19 Phenazopyridine HCl [Pyridium 200 mg Tablet] 200 mg PO TID #15 tablet 03/13/19 Allergies/Adverse Reactions: tramadol Allergy (Intermediate, Verified 03/13/19 17:06) AMS Penicillins Allergy (Mild, Verified 03/13/19 17:06) rash Sulfa (Sulfonamide Antibiotics) Allergy (Mild, Verified 03/13/19 17:06) rash aspirin Allergy (Verified 03/13/19 17:06) NO ASA Review of Systems Constitutional: ABSENT: chills, fever(s) Eyes: ABSENT: visual disturbances, other - Eye pain Ears: ABSENT: hearing changes, other - Ear pain Nose, Mouth, and Throat: ABSENT: headache(s), sore throat Cardiovascular: PRESENT: as per HPI, chest pain - Severe pleuritic chest pain bilaterally with cough, dyspnea on exertion, edema - Face, hands and feet. ABSENT: orthropnea, palpitations Respiratory: PRESENT: as per HPI, cough - Severe paroxysmal cough, dyspnea. ABSENT: sputum Gastrointestinal: ABSENT: abdominal pain, constipation, diarrhea, nausea, vomiting Genitourinary: ABSENT: dysuria, hematuria Musculoskeletal: ABSENT: back pain, joint swelling Integumentary: ABSENT: pruritus, rash Neurological: ABSENT: confusion, convulsions, focal weakness, memory loss, syncope Endocrine: ABSENT: cold intolerance, heat intolerance, polydipsia, polyphagia, polyuria Hematologic/Lymphatic: ABSENT: easy bleeding, easy bruising Allergic/Immunologic: ABSENT: seasonal rhinorrhea Physical Exam Vital Signs: Temp Pulse Resp BP Pulse Ox 99.2 F 147 H 38 H 133/101 H 93 06/19/19 02:03 06/18/19 21:09 06/19/19 02:46 06/19/19 02:46 06/19/19 02:46 Intake & Output 06/17/19 06/18/19 06/19/19 23:59 23:59 23:59 Intake Total 182 Balance 182 Weight 113.398 kg General appearance: PRESENT: cooperative, mild distress - Secondary to cough, obese Head exam: PRESENT: atraumatic, normocephalic Eye exam: PRESENT: conjunctiva pink. ABSENT: conjunctival injection, scleral icterus Ear exam: PRESENT: normal external ear exam. ABSENT: bleeding, drainage Mouth exam: PRESENT: dry mucosa, neck supple Neck exam: ABSENT: thyromegaly, tracheal deviation Respiratory exam: PRESENT: clear to auscultation denis, symmetrical, unlabored Cardiovascular exam: PRESENT: irregular rhythm - Irregularly irregular rate and rhythm, tachycardia. ABSENT: clicks, gallop, rubs Pulses: PRESENT: normal radial pulses, normal dorsalis pedis pul Vascular exam: PRESENT: normal capillary refill. ABSENT: pallor GI/Abdominal exam: PRESENT: normal bowel sounds, soft. ABSENT: tenderness Rectal exam: PRESENT: deferred Extremities exam: PRESENT: pedal edema - Trace to 1+ bilaterally. ABSENT: joint swelling Musculoskeletal exam: ABSENT: deformity, dislocation Neurological exam: PRESENT: alert, oriented to person, oriented to place, oriented to time, oriented to situation, CN II-XII grossly intact. ABSENT: motor sensory deficit Psychiatric exam: PRESENT: anxious, normal mood Skin exam: PRESENT: dry, intact, warm. ABSENT: jaundice, rash, urticaria Results Laboratory Results: 06/18/19 21:18 06/18/19 22:48 06/18/19 06/18/19 06/18/19 21:18 21:18 21:42 WBC 13.9 H RBC 4.47 Hgb 14.4 Hct 43.4 MCV 97 MCH 32.3 MCHC 33.2 RDW 13.9 Plt Count 316 Seg Neutrophils % 76.9 VBG pH VBG pCO2 VBG HCO3 VBG Base Excess Sodium Cancelled Potassium Cancelled Chloride Cancelled Carbon Dioxide Cancelled Anion Gap Cancelled BUN Cancelled Creatinine Cancelled Est GFR ( Amer) Cancelled Est GFR (Non-Af Amer) Cancelled Glucose Cancelled Lactic Acid 2.5 H Calcium Cancelled Magnesium Cancelled Total Bilirubin Cancelled AST Cancelled Alkaline Phosphatase Cancelled Total Protein Cancelled Albumin Cancelled TSH Urine Color Urine Appearance Urine pH Ur Specific [place] Urine Protein Urine Glucose (UA) Urine Ketones Urine Blood Urine RBC (Auto) 06/18/19 06/18/19 06/18/19 21:42 22:48 22:48 WBC RBC Hgb Hct MCV MCH MCHC RDW Plt Count Seg Neutrophils % VBG pH Cancelled VBG pCO2 Cancelled VBG HCO3 Cancelled VBG Base Excess Cancelled Sodium 135.0 L Potassium 4.8 Chloride 97 L Carbon Dioxide 27 Anion Gap 11 BUN 11 Creatinine 0.90 Est GFR ( Amer) > 60 Est GFR (Non-Af Amer) Glucose 247 H Lactic Acid Calcium 9.1 Magnesium 1.4 L Total Bilirubin 0.5 AST 29 Alkaline Phosphatase 146 H Total Protein 7.0 Albumin 4.1 TSH 7.75 H Urine Color Urine Appearance Urine pH Ur Specific [place] Urine Protein Urine Glucose (UA) Urine Ketones Urine Blood Urine RBC (Auto) 06/18/19 06/19/19 23:25 01:21 WBC RBC Hgb Hct MCV MCH MCHC RDW Plt Count Seg Neutrophils % VBG pH 7.31 VBG pCO2 50.0 VBG HCO3 24.5 VBG Base Excess -2.3 Sodium Potassium Chloride Carbon Dioxide Anion Gap BUN Creatinine Est GFR ( Amer) Est GFR (Non-Af Amer) Glucose Lactic Acid Calcium Magnesium Total Bilirubin AST Alkaline Phosphatase Total Protein Albumin TSH Urine Color YELLOW Urine Appearance SLIGHTLY-CLOUDY Urine pH 5.0 Ur Specific [place] > 1.060 Urine Protein 100 H Urine Glucose (UA) 150 H Urine Ketones NEGATIVE Urine Blood SMALL H Urine RBC (Auto) 34 06/18/19 06/18/19 06/18/19 21:18 21:18 22:48 Creatine Kinase Cancelled 120 CK-MB (CK-2) 1.61 Troponin I < 0.012 NT-Pro-B Natriuret Pep 06/18/19 06/19/19 22:48 00:35 Creatine Kinase CK-MB (CK-2) Troponin I < 0.012 NT-Pro-B Natriuret Pep 831 H Impressions: Chest X-Ray 06/18/19 21:15 IMPRESSION: Mild patchy basilar opacities are similar in appearance to prior study. Clinical correlation is advised. The possibility of infection is not excluded. Chest/Abdomen CTA 06/18/19 22:09 IMPRESSION: No aortic dissection or aneurysm. No pulmonary embolus. No definite pneumonia. Assessment and Plan - Diagnosis (1) Paroxysmal cough Is this a current diagnosis for this admission?: Yes (2) Acute respiratory failure with hypoxia Is this a current diagnosis for this admission?: Yes (3) Pleuritic chest pain Is this a current diagnosis for this admission?: Yes (4) Hypothyroidism Qualifiers: Hypothyroidism type: unspecified Qualified Code(s): E03.9 - Hypothyroidism, unspecified Is this a current diagnosis for this admission?: Yes (5) Paroxysmal A-fib Is this a current diagnosis for this admission?: Yes (6) Atrial fibrillation with RVR Is this a current diagnosis for this admission?: Yes (7) Leukocytosis, unspecified Qualifiers: Leukocytosis type: unspecified Qualified Code(s): D72.829 - Elevated white blood cell count, unspecified Is this a current diagnosis for this admission?: Yes (8) Diabetes mellitus type 2 in obese Is this a current diagnosis for this admission?: Yes (9) Hypertension Qualifiers: Hypertension type: essential hypertension Qualified Code(s): I10 - [place] l (primary) hypertension Is this a current diagnosis for this admission?: Yes (10) Schizoaffective disorder Qualifiers: Schizoaffective disorder type: unspecified Qualified Code(s): F25.9 - Schizoaffective disorder, unspecified Is this a current diagnosis for this admission?: Yes (11) Obesity Is this a current diagnosis for this admission?: Yes - Plan Summary Summary: Patient is admitted to the medical floor in a telemetry bed where she will receive routine supportive and symptomatic cares. She will be treated with IV fluids and supplemental oxygen via nasal cannula and/or BiPAP if required to maintain adequate oxygen saturation. She will also receive adequate analgesia for her chest pain using both nonnarcotic and narcotic treatments. A cardiology consultation will be obtained if her atrial fibrillation cannot be controlled with conversion to oral medications. Patient was placed on Rocephin and Zithromax prophylactically/empirically in the emergency room though no obvious source of infection was noted. Serial lactic acids will be obtained. Serial troponin I levels will also be obtained. A hemoglobin A1c, lipid profile and thyroid profile will be obtained. CBCs, metabolic profiles and magnesium levels will be obtained as appropriate. Patient will use morphine sulfate 2 to 4 mg IV every 2 hours as needed for severe pain. An effort will be made to withdraw the patient from the diltiazem infusion as soon as possible. Before meals and at bedtime Accu-Cheks to be obtained with sliding scale insulin available for hyperglycemia and a hypoglycemic protocol in place. Patient be continued on her usual medications as appropriate once her medication list has been verified and reconciled. Physical Security Engineer consultation will be obtained for dietary evaluation and treatment of her obesity and diabetes. - Time Time Spent with patient: 15-24 minutes Medications reviewed and adjusted accordingly: Yes Anticipated discharge: Home - Inpatient Certification Based on my medical assessment, after consideration of the patient's comorbidities, presenting symptoms, or acuity I expect that the services needed warrant INPATIENT care.: Yes I certify that my determination is in accordance with my understanding of Medicare's requirements for reasonable and necessary INPATIENT services [42 CFR 412.3e].: Yes Medical Necessity: Significant Comorbidiites Make Outpatient Treatment Too Risky, Need Close Monitoring Due to Risk of Patient Decompensation, Need For IV Fluids, Need For Continuous Telemetry Monitoring, Need for Pain Control, Risk of Complication if Not Cared For in Hospital
[2019-06-19] MEDS: PANTOPRAZOLE SODIUM 40 MG TABLET.DR PO SCH ×2 (05:48→17:08)
[2019-06-19] MEDS: RINGERS SOLUTION,LACTATED 1,000 ML IV PRN ×2 (05:51→08:36)
[2019-06-19] MEDS: INSULIN REG, HUMAN 100 UNIT/ML 3 ML VIAL (PYX) SUBCUT SCH ×4 (08:40→21:20)
[2019-06-19] MEDS ORDERED: MAGNESIUM SULFATE/D5W 1 GM/100 ML RTUPB IV ONE (09:00)
[2019-06-19] MEDS: MAGNESIUM OXIDE 400 MG TABLET PO SCH ×2 (09:13→17:08)
[2019-06-19] MEDS: DOCUSATE SODIUM 100 MG CAPSULE PO SCH ×2 (09:13→17:08)
[2019-06-19] MEDS: APIXABAN 5 MG TABLET PO SCH ×2 (09:13→17:08)
[2019-06-19] MEDS: DIGOXIN 0.25 MG TABLET PO SCH (10:14)
[2019-06-19] MEDS: METOPROLOL SUCCINATE 25 MG TAB.SR.24H PO SCH ×2 (10:14→21:13)
[2019-06-19] MEDS ORDERED: LEVALBUTEROL HCL NEB 1.25 MG/3 ML AMPUL NEB PRN (12:11)
[2019-06-19] MEDS ORDERED: IPRATROPIUM BROMIDE 0.02% NEB 0.5 MG/2.5 ML AMPUL NEB PRN (12:11)
--- NOTE | 2019-06-19 12:19 | PDOC PROGRESS REPORT ---
Subjective Progress Note for:: 06/19/19 Subjective:: The patient is short of breath. She feels gurgling breath sounds. She looks quite uncomfortable. Reason For Visit: PAROXYSMAL AFIB WITH RVR,PAROXYSMAL COUGH,SEVERE Physical Exam Vital Signs: Temp Pulse Resp BP Pulse Ox 98.7 F 95 20 147/65 H 93 06/19/19 07:44 06/19/19 10:00 06/19/19 07:44 06/19/19 10:00 06/19/19 07:44 Intake & Output 06/18/19 06/19/19 06/20/19 06:59 06:59 06:59 Intake Total 1708 1609 Balance 1708 1609 Weight 112.3 kg General appearance: PRESENT: cooperative, morbidly obese, well-developed Exam: Morbidly obese 53-year-old female sitting in the chair. Clearly with respiratory distress. Breath sounds are gurgling. Head exam: PRESENT: atraumatic, normocephalic Ear exam: PRESENT: normal external ear exam. ABSENT: bleeding, drainage Respiratory exam: PRESENT: prolonged expiratory phas, rhonchi, symmetrical, tachypnea. ABSENT: accessory muscle use, wheezes Cardiovascular exam: PRESENT: irregular rhythm, +S1, +S2 GI/Abdominal exam: PRESENT: normal bowel sounds, soft, other - Protuberant abdomen. ABSENT: guarding, tenderness Rectal exam: PRESENT: deferred Gentrourinary exam: ABSENT: indwelling catheter Extremities exam: PRESENT: pedal edema Musculoskeletal exam: PRESENT: ambulatory. ABSENT: deformity Neurological exam: PRESENT: alert, awake, oriented to person, oriented to place, oriented to time, oriented to situation, CN II-XII grossly intact Psychiatric exam: PRESENT: flat affect. ABSENT: agitated, anxious Focused psych exam: ABSENT: delusional, paranoid, restlessness Skin exam: PRESENT: dry, normal color, warm. ABSENT: rash Results Laboratory Results: 06/18/19 21:18 06/18/19 22:48 06/18/19 06/18/19 06/18/19 21:18 21:18 21:42 WBC 13.9 H RBC 4.47 Hgb 14.4 Hct 43.4 MCV 97 MCH 32.3 MCHC 33.2 RDW 13.9 Plt Count 316 Seg Neutrophils % 76.9 VBG pH VBG pCO2 VBG HCO3 VBG Base Excess Sodium Cancelled Potassium Cancelled Chloride Cancelled Carbon Dioxide Cancelled Anion Gap Cancelled BUN Cancelled Creatinine Cancelled Est GFR ( Amer) Cancelled Est GFR (Non-Af Amer) Cancelled Glucose Cancelled Lactic Acid 2.5 H Calcium Cancelled Magnesium Cancelled Total Bilirubin Cancelled AST Cancelled Alkaline Phosphatase Cancelled Total Protein Cancelled Albumin Cancelled TSH Urine Color Urine Appearance Urine pH Ur Specific [place] Urine Protein Urine Glucose (UA) Urine Ketones Urine Blood Urine RBC (Auto) 06/18/19 06/18/19 06/18/19 21:42 22:48 22:48 WBC RBC Hgb Hct MCV MCH MCHC RDW Plt Count Seg Neutrophils % VBG pH Cancelled VBG pCO2 Cancelled VBG HCO3 Cancelled VBG Base Excess Cancelled Sodium 135.0 L Potassium 4.8 Chloride 97 L Carbon Dioxide 27 Anion Gap 11 BUN 11 Creatinine 0.90 Est GFR ( Amer) > 60 Est GFR (Non-Af Amer) Glucose 247 H Lactic Acid Calcium 9.1 Magnesium 1.4 L Total Bilirubin 0.5 AST 29 Alkaline Phosphatase 146 H Total Protein 7.0 Albumin 4.1 TSH 7.75 H Urine Color Urine Appearance Urine pH Ur Specific [place] Urine Protein Urine Glucose (UA) Urine Ketones Urine Blood Urine RBC (Auto) 06/18/19 06/19/19 06/19/19 23:25 01:21 04:31 WBC RBC Hgb Hct MCV MCH MCHC RDW Plt Count Seg Neutrophils % VBG pH 7.31 VBG pCO2 50.0 VBG HCO3 24.5 VBG Base Excess -2.3 Sodium Potassium Chloride Carbon Dioxide Anion Gap BUN Creatinine Est GFR ( Amer) Est GFR (Non-Af Amer) Glucose Lactic Acid 1.8 Calcium Magnesium Total Bilirubin AST Alkaline Phosphatase Total Protein Albumin TSH Urine Color YELLOW Urine Appearance SLIGHTLY-CLOUDY Urine pH 5.0 Ur Specific [place] > 1.060 Urine Protein 100 H Urine Glucose (UA) 150 H Urine Ketones NEGATIVE Urine Blood SMALL H Urine RBC (Auto) 34 06/19/19 08:23 WBC RBC Hgb Hct MCV MCH MCHC RDW Plt Count Seg Neutrophils % VBG pH VBG pCO2 VBG HCO3 VBG Base Excess Sodium Potassium Chloride Carbon Dioxide Anion Gap BUN Creatinine Est GFR ( Amer) Est GFR (Non-Af Amer) Glucose Lactic Acid 1.9 Calcium Magnesium Total Bilirubin AST Alkaline Phosphatase Total Protein Albumin TSH Urine Color Urine Appearance Urine pH Ur Specific [place] Urine Protein Urine Glucose (UA) Urine Ketones Urine Blood Urine RBC (Auto) 06/18/19 06/18/19 06/18/19 21:18 21:18 22:48 Creatine Kinase Cancelled 120 CK-MB (CK-2) 1.61 Troponin I < 0.012 NT-Pro-B Natriuret Pep 06/18/19 06/19/19 06/19/19 22:48 00:35 04:31 Creatine Kinase CK-MB (CK-2) Troponin I < 0.012 < 0.012 NT-Pro-B Natriuret Pep 831 H 06/19/19 08:23 Creatine Kinase CK-MB (CK-2) Troponin I < 0.012 NT-Pro-B Natriuret Pep Impressions: Chest X-Ray 06/18/19 21:15 IMPRESSION: Mild patchy basilar opacities are similar in appearance to prior study. Clinical correlation is advised. The possibility of infection is not excluded. Chest/Abdomen CTA 06/18/19 22:09 IMPRESSION: No aortic dissection or aneurysm. No pulmonary embolus. No definite pneumonia. Assessment and Plan - Diagnosis (1) Acute respiratory failure with hypoxia Is this a current diagnosis for this admission?: Yes Plan: 06/19/2019 Currently requiring 6 L nasal cannula. Normally she does not wear oxygen at home. Likely combination of chronic diastolic heart failure exacerbated by the atrial fibrillation. (2) Paroxysmal atrial fibrillation Is this a current diagnosis for this admission?: Yes Plan: 06/19/2019 Patient has a history of paroxysmal atrial fibrillation. She has been on metoprolol with reasonable control. It is possible that pneumonia has caused a burst of rapid ventricular rate. She was on diltiazem infusion. Digoxin seems to be most effective. I will add this to her metoprolol regimen. Continue monitoring on telemetry. (3) Atrial fibrillation with RVR Is this a current diagnosis for this admission?: Yes Plan: 06/19/2019 See above (4) Acute on chronic diastolic heart failure Is this a current diagnosis for this admission?: Yes Plan: 06/19/2019 The patient likely has acute on chronic heart failure due to a 3.3 L net positive fluid balance, the rapid atrial fibrillation and her furosemide is listed as dosing as needed. I will give her 40 mg of IV Lasix today and start 40 mg p.o. daily tomorrow. We will need to monitor electrolytes as well as intake and output. I expect when her heart failure improves her oxygen requirements will decrease. (5) Pneumonia Qualifiers: Pneumonia type: due to unspecified organism Laterality: bilateral Lung location: lower lobe of lung Qualified Code(s): J18.9 - Pneumonia, unspecified organism Is this a current diagnosis for this admission?: Yes Plan: 06/19/2019 The patient has bilateral lower lobe opacities. It is similar to previous exam. It is difficult to know if this is part of her heart failure, atelectatic changes or infection. She did have an elevated white blood cell count. She will be treated with empiric antibiotic therapy in addition to treating her comorbidities of heart failure and atrial fibrillation as well as a history of asthma (6) Paroxysmal cough Is this a current diagnosis for this admission?: Yes Plan: 06/19/2019 Still with cough (7) Diabetes mellitus type 2 in obese Is this a current diagnosis for this admission?: Yes Plan: 06/19/2019 We will continue home diabetic regimen. Accu-Cheks with sliding scale coverage as well. Hemoglobin A1c was 11. She does not exhibit good control at this ti me. We will try and keep Accu-Cheks less than 150. (8) Leukocytosis, unspecified Qualifiers: Leukocytosis type: unspecified Qualified Code(s): D72.829 - Elevated white blood cell count, unspecified Is this a current diagnosis for this admission?: Yes Plan: 06/19/2019 Likely secondary to infection and stress of current exacerbation of heart failure and atrial fibrillation. Continue to monitor white blood cell count. (9) Hypothyroidism Qualifiers: Hypothyroidism type: unspecified Qualified Code(s): E03.9 - Hypothyroidism, unspecified Is this a current diagnosis for this admission?: Yes Plan: 06/19/2019 Currently not on thyroid replacement therapy. Once atrial fibrillation is under better control consider adding levothyroxine. This certainly can be followed up as an outpatient. (10) Pleuritic chest pain Is this a current diagnosis for this admission?: Yes Plan: 06/19/2019 Conservative symptom management (11) Hypertension Qualifiers: Hypertension type: essential hypertension Qualified Code(s): I10 - Essential (primary) hypertension Is this a current diagnosis for this admission?: Yes Plan: 06/19/2019 Will be on metoprolol and furosemide. Monitor on telemetry and monitor with regular vital signs. (12) Schizoaffective disorder Qualifiers: Schizoaffective disorder type: unspecified Qualified Code(s): F25.9 - Schizoaffective disorder, unspecified Is this a current diagnosis for this admission?: Yes Plan: 06/19/2019 Continue home medication regimen (13) Morbid obesity with BMI of 40.0-44.9, adult Is this a current diagnosis for this admission?: Yes Plan: 06/19/2019 BMI is 43.9. It is my believe that a good cardiac diabetic diet as well as correction of her hypothyroidism will help. She will still need aggressive weight management by diet and exercise. - Plan Summary Summary: Patient is admitted to the medical floor in a telemetry bed where she will receive routine supportive and symptomatic cares. She will be treated with IV fluids and supplemental oxygen via nasal cannula and/or BiPAP if required to maintain adequate oxygen saturation. She will also receive adequate analgesia f or her chest pain using both nonnarcotic and narcotic treatments. A cardiology consultation will be obtained if her atrial fibrillation cannot be controlled with conversion to oral medications. Patient was placed on Rocephin and Zithromax prophylactically/empirically in the emergency room though no obvious source of infection was noted. Serial lactic acids will be obtained. Serial troponin I levels will also be obtained. A hemoglobin A1c, lipid profile and thyroid profile will be obtained. CBCs, metabolic profiles and magnesium levels will be obtained as appropriate. Patient will use morphine sulfate 2 to 4 mg IV every 2 hours as needed for severe pain. An effort will be made to withdraw the patient from the diltiazem infusion as soon as possible. Before meals and at bedtime Accu-Cheks to be obtained with sliding scale insulin available for hyperglycemia and a hypoglycemic protocol in place. Patient be continued on her usual medications as appropriate once her medication list has been verified and reconciled. [employer] consultation will be obtained for dietary evaluation and treatment of her obesity and diabetes.
[2019-06-19] MEDS ORDERED: FUROSEMIDE INJ/PF 40 MG/4 ML SDV IV ONE (12:30)
--- NOTE | 2019-06-19 12:34 | EKG REPORT ---
SEVERITY:- ABNORMAL ECG - ATRIAL FILUTTER NONSPECIFIC T ABNORMALITIES, DIFFUSE LEADS BORDERLINE PROLONGED QT INTERVAL : Confirmed by: Lesley Jacome MD 19-Jun-2019 12:33:11
[2019-06-19] MEDS: IPRATROPIUM BROMIDE 0.02% NEB 0.5 MG/2.5 ML AMPUL NEB SCH ×2 (14:07→20:24)
[2019-06-19] MEDS: LEVALBUTEROL HCL NEB 1.25 MG/3 ML AMPUL NEB SCH ×2 (14:07→20:24)
[2019-06-19] MEDS ORDERED: GLYBURIDE 2.5 MG TABLET PO SCH (18:00)
[2019-06-19] MEDS: HYDROCODONE/ACETAMINOPHEN 5-325 MG TABLET PO PRN (20:16)
[2019-06-19] MEDS: BUDESONIDE NEB 0.5 MG/2 ML AMPUL NEB SCH (20:23)
[2019-06-19] MEDS: TOLTERODINE TARTRATE 1 MG TABLET PO SCH (21:14)
[2019-06-19] MEDS ORDERED: DIPHENHYDRAMINE HCL 25 MG CAPSULE PO SCH (22:00)
[2019-06-19] MEDS ORDERED: ZOLPIDEM TARTRATE 5 MG TABLET PO SCH (22:00)
[2019-06-19] MEDS ORDERED: AMITRIPTYLINE HCL 25 MG TABLET PO SCH (22:00)
[2019-06-19] MEDS ORDERED: (PENDING PHARMACY ID) (Brexpiprazole [Rexulti] 2 MG) PO SCH (22:00)
[2019-06-19] MEDS ORDERED: (PENDING PHARMACY ID) (Zolpidem Tartrate [Ambien] 10 MG) PO SCH (22:00)
[2019-06-19] MEDS ORDERED: (PENDING PHARMACY ID) (Prazosin Hcl [Minipress] 2 MG) PO SCH (22:00)
[2019-06-19] MEDS ORDERED: METOPROLOL TARTRATE 25 MG TABLET PO ONE (23:45)
[2019-06-20] MEDS ORDERED: MEROPENEM 1 GM in NORMAL SALINE 50 ML IV SCH (01:00)
[2019-06-20] MEDS: LEVALBUTEROL HCL NEB 1.25 MG/3 ML AMPUL NEB SCH ×3 (02:11→14:00)
[2019-06-20] MEDS: IPRATROPIUM BROMIDE 0.02% NEB 0.5 MG/2.5 ML AMPUL NEB SCH ×3 (02:11→14:00)
[2019-06-20] MEDS ORDERED: MEROPENEM 1 GM VIAL ONE (02:15)
[2019-06-20] MEDS: PANTOPRAZOLE SODIUM 40 MG TABLET.DR PO SCH ×2 (05:33→17:07)
[2019-06-20 06:13] LABS: ABSOLUTE EOSINOPHILS # (AUTO) 0.2 10^3/uL (0.0-0.6); ABSOLUTE LYMPHOCYTES (AUTO) 1.5 10^3/uL (0.5-4.7); ABSOLUTE MONOCYTES (AUTO) 0.5 10^3/uL (0.1-1.4); ABSOLUTE NEUT (AUTO) 2.9 10^3/uL (1.7-8.2); BASOPHILS % (AUTO) 0.9 % (0-2); HEMATOCRIT 38.8 % (36.0-47.0); HEMOGLOBIN 12.9 g/dL (12.0-15.5); LYMPHOCYTES % (AUTO) 29.4 % (13-45); MEAN CORPUSCULAR HEMOGLOBIN 32.1 pg (27.0-33.4); MEAN CORPUSCULAR HGB CONC 33.3 g/dL (32.0-36.0); MEAN CORPUSCULAR VOLUME 96 fl (80-97); MONOCYTES % (AUTO) 10.3 % (3-13); PLATELET COUNT 252 10^3/uL (150-450); RED BLOOD COUNT 4.03 10^6/uL (3.72-5.28); RED CELL DISTRIBUTION WIDTH 13.9 % (11.5-14.0); SEGMENTED NEUTROPHILS % (AUTO) 56.4 % (42-78); TOTAL CELLS COUNTED % (AUTO) 100 %; WHITE BLOOD COUNT 5.1 10^3/uL (4.0-10.5)
[2019-06-20 07:38] LABS: ANION GAP 5 (5-19); BLOOD UREA NITROGEN 8 mg/dL (7-20); CALCIUM 8.4 mg/dL (8.4-10.2); CARBON DIOXIDE 30 mmol/L (22-30); CHLORIDE 100 mmol/L (98-107); DIGOXIN 0.97 ng/mL (0.8-2.0); GLUCOSE 174 mg/dL (75-110); POTASSIUM 4.2 mmol/L (3.6-5.0)
[2019-06-20 07:51] LABS: FREE T3 2.68 pg/mL (2.77-5.27)
[2019-06-20 08:05] LABS: THYROID STIMULATING HORMONE 12.2 uIU/mL (0.47-4.68)
[2019-06-20] MEDS: INSULIN REG, HUMAN 100 UNIT/ML 3 ML VIAL (PYX) SUBCUT SCH ×4 (08:18→22:01)
[2019-06-20] MEDS: SITAGLIPTIN PHOSPHATE 50 MG TABLET PO SCH (09:11)
[2019-06-20] MEDS: APIXABAN 5 MG TABLET PO SCH ×2 (09:11→17:07)
[2019-06-20] MEDS: DOCUSATE SODIUM 100 MG CAPSULE PO SCH ×2 (09:11→17:07)
[2019-06-20] MEDS: VENLAFAXINE HCL 75 MG CAP.SR.24H PO SCH (09:11)
[2019-06-20] MEDS: TOLTERODINE TARTRATE 1 MG TABLET PO SCH ×2 (09:11→21:16)
[2019-06-20] MEDS: GLIPIZIDE XL 5 MG TAB.ER.24 PO SCH (09:11)
[2019-06-20] MEDS: MAGNESIUM OXIDE 400 MG TABLET PO SCH ×2 (09:12→17:07)
[2019-06-20] MEDS: FUROSEMIDE 40 MG TABLET PO SCH (09:12)
[2019-06-20] MEDS: MEROPENEM 1 GM in NORMAL SALINE 50 ML IV SCH ×2 (09:12→17:07)
[2019-06-20] MEDS: DIGOXIN 0.25 MG TABLET PO SCH (09:12)
[2019-06-20] MEDS: HYDROCODONE/ACETAMINOPHEN 5-325 MG TABLET PO PRN ×3 (09:13→20:03)
[2019-06-20] MEDS: METOPROLOL SUCCINATE 25 MG TAB.SR.24H PO SCH (09:13)
[2019-06-20] MEDS: BUDESONIDE NEB 0.5 MG/2 ML AMPUL NEB SCH (09:32)
[2019-06-20] MEDS ORDERED: (PENDING PHARMACY ID) (Solifenacin Succinate [Vesicare] 5 MG) PO SCH (10:00)
[2019-06-20] MEDS ORDERED: DESVENLAFAXINE 50 MG PO SCH (10:00)
[2019-06-20] MEDS ORDERED: DIGOXIN 0.25 MG TABLET PO SCH (10:00)
[2019-06-20] MEDS ORDERED: PROMETHAZINE HCL INJ 25 MG/1 ML VIAL IV PRN (11:30)
--- NOTE | 2019-06-20 14:29 | PDOC PROGRESS REPORT ---
Subjective Progress Note for:: 06/20/19 Reason For Visit: PAROXYSMAL AFIB WITH RVR,PAROXYSMAL COUGH,SEVERE Physical Exam Vital Signs: Temp Pulse Resp BP Pulse Ox 98.0 F 97 18 132/56 H 92 06/20/19 11:17 06/20/19 14:01 06/20/19 14:01 06/20/19 11:17 06/20/19 14:01 Intake & Output 06/19/19 06/20/19 06/21/19 06:59 06:59 06:59 Intake Total 1708 2429 100 Output Total 1000 Balance 1708 1429 100 Weight 112.3 kg 112.3 kg Results Laboratory Results: 06/20/19 05:40 06/20/19 06:45 06/20/19 06/20/19 06/20/19 05:40 05:40 05:40 WBC 5.1 RBC 4.03 Hgb 12.9 Hct 38.8 MCV 96 MCH 32.1 MCHC 33.3 RDW 13.9 Plt Count 252 Seg Neutrophils % 56.4 Sodium Cancelled Potassium Cancelled Chloride Cancelled Carbon Dioxide Cancelled Anion Gap Cancelled BUN Cancelled Creatinine Cancelled Est GFR ( Amer) Cancelled Est GFR (Non-Af Amer) Cancelled Glucose Cancelled Calcium Cancelled Magnesium Cancelled TSH Cancelled Free T3 pg/mL Cancelled 06/20/19 06/20/19 06:45 06:45 WBC RBC Hgb Hct MCV MCH MCHC RDW Plt Count Seg Neutrophils % Sodium 135.2 L Potassium 4.2 Chloride 100 Carbon Dioxide 30 Anion Gap 5 BUN 8 Creatinine 0.78 Est GFR ( Amer) > 60 Est GFR (Non-Af Amer) Glucose 174 H Calcium 8.4 Magnesium 1.9 TSH 12.20 H Free T3 pg/mL 2.68 L 06/18/19 06/18/19 06/18/19 21:18 21:18 22:48 Creatine Kinase Cancelled 120 CK-MB (CK-2) 1.61 Troponin I < 0.012 NT-Pro-B Natriuret Pep 06/18/19 06/19/19 06/19/19 22:48 00:35 04:31 Creatine Kinase CK-MB (CK-2) Troponin I < 0.012 < 0.012 NT-Pro-B Natriuret Pep 831 H 03/06/19/19 06/19/19 08:23 12:30 16:00 Creatine Kinase CK-MB (CK-2) Troponin I < 0.012 < 0.012 < 0.012 NT-Pro-B Natriuret Pep 06/19/19 20:20 Creatine Kinase CK-MB (CK-2) Troponin I < 0.012 NT-Pro-B Natriuret Pep Impressions: Chest X-Ray 06/18/19 21:15 IMPRESSION: Mild patchy basilar opacities are similar in appearance to prior study. Clinical correlation is advised. The possibility of infection is not excluded. Chest/Abdomen CTA 06/18/19 22:09 IMPRESSION: No aortic dissection or aneurysm. No pulmonary embolus. No definite pneumonia. Assessment and Plan - Diagnosis (1) Acute respiratory failure with hypoxia Is this a current diagnosis for this admission?: Yes Plan: 06/19/2019 Currently requiring 6 L nasal cannula. Normally she does not wear oxygen at home. Likely combination of chronic diastolic heart failure exacerbated by the atrial fibrillation. 06/20/2019 Currently down to 4 L nasal cannula. Have initiated diuresis. She still is gurgly. There is a significant drop in her net fluid balance today. This shoul d help. (2) Paroxysmal atrial fibrillation Is this a current diagnosis for this admission?: Yes Plan: 06/19/2019 Patient has a history of paroxysmal atrial fibrillation. She has been on metoprolol with reasonable control. It is possible that pneumonia has caused a burst of rapid ventricular rate. She was on diltiazem infusion. Digoxin seems to be most effective. I will add this to her metoprolol regimen. Continue monitoring on telemetry. 06/20/2019 Still sees pulse rates greater than 100 with exertion. I will increase the metoprolol to 50 mg twice daily. Continue digoxin. (3) Atrial fibrillation with RVR Is this a current diagnosis for this admission?: Yes Plan: 06/19/2019 See above (4) Acute on chronic diastolic heart failure Is this a current diagnosis for this admission?: Yes Plan: 06/19/2019 The patient likely has acute on chronic heart failure due to a 3.3 L net positive fluid balance, the rapid atrial fibrillation and her furosemide is listed as dosing as needed. I will give her 40 mg of IV Lasix today and start 40 mg p.o. daily tomorrow. We will need to monitor electrolytes as well as intake and output. I expect when her heart failure improves her oxygen requir ements will decrease. 06/20/2019 Continue current treatment plan as outlined above (5) Pneumonia Qualifiers: Pneumonia type: due to unspecified organism Laterality: bilateral Lung location: lower lobe of lung Qualified Code(s): J18.9 - Pneumonia, unspecified organism Is this a current diagnosis for this admission?: Yes Plan: 06/19/2019 The patient has bilateral lower lobe opacities. It is similar to previous exam. It is difficult to know if this is part of her heart failure, atelectatic changes or infection. She did have an elevated white blood cell count. She will be treated with empiric antibiotic therapy in addition to treating her comorbidities of heart failure and atrial fibrillation as well as a history of asthma 06/20/2019 We will continue antibiotics. Added vancomycin for reasons outlined above. Covid-19 testing results still unavailable. (6) Paroxysmal cough Is this a current diagnosis for this admission?: Yes Plan: 06/19/2019 Still with cough 06/20/2019 Coughing is definitely less. Continue regimen outlined above. (7) Diabetes mellitus type 2 in obese Is this a current diagnosis for this admission?: Yes Plan: 06/19/2019 We will continue home diabetic regimen. Accu-Cheks with sliding scale coverage as well. Hemoglobin A1c was 11. She does not exhibit good control at this time. We will try and keep Accu-Cheks less than 150. 06/20/2019 Unfortunately Accu-Cheks are usually greater than 150. If this continues through tomorrow then I will make adjustments in her regimen. (8) Hypothyroidism Qualifiers: Hypothyroidism type: unspecified Qualified Code(s): E03.9 - Hypothyroidism, unspecified Is this a current diagnosis for this admission?: Yes Plan: 06/19/2019 Currently not on thyroid replacement therapy. Once atrial fibrillation is under better control consider adding levothyroxine. This certainly can be followed up as an outpatient. 06/20/2019 Due to the patient's presentation (decreased energy and morbid obesity) I am going to initiate a trial of levothyroxine. This may cause a problem with her heart rate. We will monitor on telemetry. (9) Pleuritic chest pain Is this a current diagnosis for this admission?: Yes Plan: 06/19/2019 Conservative symptom management 06/20/2019 Improved (10) Hypertension Qualifiers: Hypertension type: essential hypertension Qualified Code(s): I10 - Essential (primary) hypertension Is this a current diagnosis for this admission?: Yes Plan: 06/19/2019 Will be on metoprolol and furosemide. Monitor on telemetry and monitor with regular vital signs. 06/20/2019 I will increase the metoprolol today. Blood pressures are improved. We will continue to monitor. (11) Schizoaffective disorder Qualifiers: Schizoaffective disorder type: unspecified Qualified Code(s): F25.9 - Schizoaffective disorder, unspecified Is this a current diagnosis for this admission?: Yes Plan: 06/19/2019 Continue home medication regimen 06/20/2019 The patient is on multiple medications. If her somnolence continues I will consult with psychiatry and consider decreasing some of her medications. I have decreased her Ambien already. (12) Morbid obesity with BMI of 40.0-44.9, adult Is this a current diagnosis for this admission?: Yes Plan: 06/19/2019 BMI is 43.9. It is my believe that a good cardiac diabetic diet as well as correction of her hypothyroidism will help. She will still need aggressive weight management by diet and exercise. (13) Cystitis Is this a current diagnosis for this admission?: Yes Plan: 06/20/2019 Gram-negative bacilli isolated in the urine. Sensitivity and identification pending. Beta-hemolytic strep group B also isolated. The patient is on's imipenem which will cover the gram-negative's. There is also gram-positive cocci in clusters and one blood culture bottle. If this confirms as a coagulase-negative staph then I will discontinue the vancomycin and use something milder for the group B strep. The group B strep in the urine may not even be pathologic. (14) Group B streptococcal infection Is this a current diagnosis for this admission?: Yes Plan: 06/20/2019 I have added vancomycin more for the gram-positive cocci in clusters in the blood culture. If the gram-positive cocci in clusters is a coagulase-negative staph then it is likely a contaminant. The patient is allergic to penicillins and sulfa antibiotics and so I will need to decide if the group B strep is pathologic or just present. (15) Leukocytosis, unspecified Qualifiers: Leukocytosis type: unspecified Qualified Code(s): D72.829 - Elevated white blood cell count, unspecified Is this a current diagnosis for this admission?: Yes Plan: 06/19/2019 Likely secondary to infection and stress of current exacerbation of heart failure and atrial fibrillation. Continue to monitor white blood cell count. 06/20/2019 Resolved - Plan Summary Summary: Patient is admitted in a imcu/telemetry bed where she will receive routine supportive and symptomatic cares. She will be treated with IV fluids and s upplemental oxygen via nasal cannula and/or BiPAP if required to maintain adequate oxygen saturation. She will also receive adequate analgesia for her chest pain using both nonnarcotic and narcotic treatments. A cardiology consultation will be obtained if her atrial fibrillation cannot be controlled with conversion to oral medications. Patient was placed on Rocephin and Zithromax prophylactically/empirically in the emergency room though no obvious source of infection was noted. Serial lactic acids will be obtained. Serial troponin I levels will also be obtained. A hemoglobin A1c, lipid profile and thyroid profile will be obtained. CBCs, metabolic profiles and magnesium levels will be obtained as appropriate. Patient will use morphine sulfate 2 to 4 mg IV every 2 hours as needed for severe pain. An effort will be made to withdraw the patient from the diltiazem infusion as soon as possible. Before meals and at bedtime Accu-Cheks to be obtained with sliding scale insulin available for hyperglycemia and a hypoglycemic protocol in place. Patient be continued on her usual medications as appropriate once her medication list has been verified and reconciled. [employer] consultation will be obtained for dietary evaluation and treatment of her obesity and diabetes. - Time Time Spent with patient: 15-24 minutes Medications reviewed and adjusted accordingly: Yes
[2019-06-20] MEDS ORDERED: VANCOMYCIN HCL 0 MG in DEXTROSE 5%-WATER 250 ML IV NR (14:30)
[2019-06-20] MEDS: VANCOMYCIN HCL 750 MG in DEXTROSE 5%-WATER 250 ML IV SCH ×2 (15:48→21:17)
[2019-06-20] MEDS: FLUTICASONE/UMECLIDIN/VILANTER 100-62.5-25 MCG/DOSE IH SCH (17:07)
[2019-06-20] MEDS: AMITRIPTYLINE HCL 50 MG TABLET PO SCH (21:16)
[2019-06-20] MEDS: METOPROLOL SUCCINATE 50 MG TAB.SR.24H PO SCH (21:17)
[2019-06-20] MEDS: ZOLPIDEM TARTRATE 5 MG TABLET PO SCH (21:19)
[2019-06-21] MEDS: HYDROCODONE/ACETAMINOPHEN 5-325 MG TABLET PO PRN ×5 (01:15→23:32)
[2019-06-21] MEDS: MEROPENEM 1 GM in NORMAL SALINE 50 ML IV SCH ×3 (01:16→17:40)
[2019-06-21] MEDS: ALPRAZOLAM 0.5 MG TABLET PO PRN ×2 (01:41→14:49)
[2019-06-21] MEDS: LEVOTHYROXINE SODIUM 0.05 MG TABLET PO SCH (05:32)
[2019-06-21] MEDS: PANTOPRAZOLE SODIUM 40 MG TABLET.DR PO SCH ×2 (05:32→17:41)
[2019-06-21] MEDS: VANCOMYCIN HCL 750 MG in DEXTROSE 5%-WATER 250 ML IV SCH ×2 (05:32→13:20)
[2019-06-21 06:47] LABS: VANCOMYCIN,TROUGH 10.3 ug/mL (5.0-20.0)
[2019-06-21] MEDS: SITAGLIPTIN PHOSPHATE 50 MG TABLET PO SCH (09:39)
[2019-06-21] MEDS: INSULIN REG, HUMAN 100 UNIT/ML 3 ML VIAL (PYX) SUBCUT SCH ×4 (09:39→23:49)
[2019-06-21] MEDS: DIGOXIN 0.25 MG TABLET PO SCH (09:40)
[2019-06-21] MEDS: FLUTICASONE/UMECLIDIN/VILANTER 100-62.5-25 MCG/DOSE IH SCH (09:40)
[2019-06-21] MEDS: METOPROLOL SUCCINATE 50 MG TAB.SR.24H PO SCH ×2 (09:40→23:34)
[2019-06-21] MEDS: APIXABAN 5 MG TABLET PO SCH ×2 (09:42→17:41)
[2019-06-21] MEDS: FUROSEMIDE 40 MG TABLET PO SCH (09:42)
[2019-06-21] MEDS: VENLAFAXINE HCL 75 MG CAP.SR.24H PO SCH (09:42)
[2019-06-21] MEDS: DOCUSATE SODIUM 100 MG CAPSULE PO SCH ×2 (09:42→17:41)
[2019-06-21] MEDS: MAGNESIUM OXIDE 400 MG TABLET PO SCH ×2 (09:42→17:41)
[2019-06-21] MEDS: TOLTERODINE TARTRATE 1 MG TABLET PO SCH ×2 (09:43→23:33)
[2019-06-21] MEDS: GLIPIZIDE XL 5 MG TAB.ER.24 PO SCH (09:43)
--- NOTE | 2019-06-21 16:36 | PDOC PROGRESS REPORT ---
Subjective Progress Note for:: 06/21/19 Subjective:: No adverse events overnight. Feels fatigued. Not short of breath at rest but has not tried to get up and walk. No cough. No fevers. Heart rate is in the 80s in the 90s on monitor. Reason For Visit: PAROXYSMAL AFIB WITH RVR,PAROXYSMAL COUGH,SEVERE Physical Exam Vital Signs: Temp Pulse Resp BP Pulse Ox 98.6 F 97 16 149/64 H 94 06/21/19 12:47 06/21/19 14:00 06/21/19 12:47 06/21/19 12:47 06/21/19 12:47 Intake & Output 06/20/19 06/21/19 06/22/19 06:59 06:59 06:59 Intake Total 2429 1626 790 Output Total 1000 6000 Balance 1429 -9584 790 Weight 112.3 kg 112.3 kg General appearance: PRESENT: no acute distress, cooperative, disheveled, morbidly obese, other - Looks very fatigued Respiratory exam: PRESENT: crackles - Bibasilar, symmetrical, unlabored. ABSENT: accessory muscle use, chest wall tenderness, prolonged expiratory phas, retraction, rhonchi, tachypnea, wheezes Cardiovascular exam: PRESENT: irregular rhythm - Regular rate Pulses: PRESENT: normal carotid pulses Vascular exam: PRESENT: normal capillary refill GI/Abdominal exam: PRESENT: normal bowel sounds, soft. ABSENT: distended, guarding, rebound, tenderness Extremities exam: PRESENT: +1 edema - Bilateral lower extremities. ABSENT: clubbing, pedal edema Musculoskeletal exam: PRESENT: normal inspection. ABSENT: deformity Neurological exam: PRESENT: awake, oriented to person, oriented to place, oriented to situation Psychiatric exam: PRESENT: flat affect Skin exam: PRESENT: dry, warm Results Laboratory Results: 06/20/19 05:40 06/21/19 04:47 06/21/19 04:47 Creatinine 0.87 Est GFR ( Amer) > 60 06/19/19 00:35 Blood Blood Culture - Final Staphylococcus Epidermidis 06/18/19 06/18/19 06/18/19 21:18 21:18 22:48 Creatine Kinase Cancelled 120 CK-MB (CK-2) 1.61 Troponin I < 0.012 NT-Pro-B Natriuret Pep 06/18/19 06/19/19 06/19/19 22:48 00:35 04:31 Creatine Kinase CK-MB (CK-2) Troponin I < 0.012 < 0.012 NT-Pro-B Natriuret Pep 831 H 06/19/19 06/19/19 06/19/19 08:23 12:30 16:00 Creatine Kinase CK-MB (CK-2) Troponin I < 0.012 < 0.012 < 0.012 NT-Pro-B Natriuret Pep 06/19/19 20:20 Creatine Kinase CK-MB (CK-2) Troponin I < 0.012 NT-Pro-B Natriuret Pep Impressions: Chest X-Ray 06/18/19 21:15 IMPRESSION: Mild patchy basilar opacities are similar in appearance to prior study. Clinical correlation is advised. The possibility of infection is not excluded. Chest/Abdomen CTA 06/18/19 22:09 IMPRESSION: No aortic dissection or aneurysm. No pulmonary embolus. No definite pneumonia. Assessment and Plan - Diagnosis (1) Acute on chronic diastolic heart failure Is this a current diagnosis for this admission?: Yes Plan: She is getting oral Lasix once a day, but she still sounds a little fluid overloaded someone give her an extra dose of IV Lasix today (2) Acute respiratory failure with hypoxia Is this a current diagnosis for this admission?: Yes Plan: Currently stable on oxygen per nasal cannula, breathing comfortably. She was also on vancomycin but I think that the edema is from heart failure and fluid overload and not from a pneumonia. (3) Atrial fibrillation with RVR Is this a current diagnosis for this admission?: Yes Plan: Rate is controlled with metoprolol and digoxin, appears like it might be a flutter pattern on the monitor, she is anticoagulated (4) Cystitis Is this a current diagnosis for this admission?: Yes Plan: She is growing a Citrobacter out of the urine. Currently on meropenem, will consider switching to an oral agent (5) Diabetes mellitus type 2 in obese Is this a current diagnosis for this admission?: Yes Plan: We will continue a consistent carbohydrate diet and insulin sliding scale (6) Morbid obesity with BMI of 40.0-44.9, adult Is this a current diagnosis for this admission?: Yes Plan: Strongly encouraged lifestyle modification - Plan Summary Summary: Patient is admitted in a imcu/telemetry bed where she will receive routine supportive and symptomatic cares. She will be treated with IV fluids and supplemental oxygen via nasal cannula and/or BiPAP if required to maintain adequate oxygen saturation. She will also receive adequate analgesia for her chest pain using both nonnarcotic and narcotic treatments. A cardiology consultation will be obtained if her atrial fibrillation cannot be controlled with conversion to oral medications. Patient was placed on Rocephin and Zithromax prophylactically/empirically in the emergency room though no obvious source of infection was noted. Serial lactic acids will be obtained. Serial troponin I levels will also be obtained. A hemoglobin A1c, lipid profile and thyroid profile will be obtained. CBCs, metabolic profiles and magnesium levels will be obtained as appropriate. Patient will use morphine sulfate 2 to 4 mg IV every 2 hours as needed for severe pain. An effort will be made to withdraw the patient from the diltiazem infusion as soon as possible. Before meals and at bedtime Accu-Cheks to be obtained with sliding scale insulin available for hyperglycemia and a hypoglycemic protocol in place. Patient be continued on her usual medications as appropriate once her medication list has been verified and reconciled. Department Coordinator consultation will be obtained for dietary evaluation and treatment of her obesity and diabetes. - Time Time Spent with patient: 15-24 minutes
[2019-06-21] MEDS ORDERED: FUROSEMIDE INJ/PF 40 MG/4 ML SDV IV ONE (17:30)
[2019-06-21] MEDS: AMITRIPTYLINE HCL 50 MG TABLET PO SCH (23:34)
[2019-06-21] MEDS: ZOLPIDEM TARTRATE 5 MG TABLET PO SCH (23:34)
[2019-06-22] MEDS: MEROPENEM 1 GM in NORMAL SALINE 50 ML IV SCH ×3 (02:34→17:34)
[2019-06-22] MEDS: PANTOPRAZOLE SODIUM 40 MG TABLET.DR PO SCH ×2 (05:51→17:34)
[2019-06-22] MEDS: LEVOTHYROXINE SODIUM 0.05 MG TABLET PO SCH (05:52)
[2019-06-22 09:09] LABS: ANION GAP 11 (5-19); BLOOD UREA NITROGEN 14 mg/dL (7-20); CALCIUM 8.9 mg/dL (8.4-10.2); CARBON DIOXIDE 28 mmol/L (22-30); CHLORIDE 94 mmol/L (98-107); GLUCOSE 173 mg/dL (75-110); POTASSIUM 4.7 mmol/L (3.6-5.0)
[2019-06-22] MEDS: SITAGLIPTIN PHOSPHATE 50 MG TABLET PO SCH (09:48)
[2019-06-22] MEDS: INSULIN REG, HUMAN 100 UNIT/ML 3 ML VIAL (PYX) SUBCUT SCH ×4 (09:48→21:30)
[2019-06-22] MEDS: FUROSEMIDE 40 MG TABLET PO SCH (09:49)
[2019-06-22] MEDS: TOLTERODINE TARTRATE 1 MG TABLET PO SCH ×2 (09:49→21:10)
[2019-06-22] MEDS: METOPROLOL SUCCINATE 50 MG TAB.SR.24H PO SCH ×2 (09:49→21:10)
[2019-06-22] MEDS: APIXABAN 5 MG TABLET PO SCH ×2 (09:49→17:34)
[2019-06-22] MEDS: GLIPIZIDE XL 5 MG TAB.ER.24 PO SCH (09:49)
[2019-06-22] MEDS: MAGNESIUM OXIDE 400 MG TABLET PO SCH ×2 (09:49→17:34)
[2019-06-22] MEDS: DOCUSATE SODIUM 100 MG CAPSULE PO SCH ×2 (09:49→17:34)
[2019-06-22] MEDS: DIGOXIN 0.25 MG TABLET PO SCH (09:49)
[2019-06-22] MEDS: VENLAFAXINE HCL 75 MG CAP.SR.24H PO SCH (09:49)
[2019-06-22] MEDS: FLUTICASONE/UMECLIDIN/VILANTER 100-62.5-25 MCG/DOSE IH SCH (09:50)
--- NOTE | 2019-06-22 16:34 | PDOC PROGRESS REPORT ---
Subjective Progress Note for:: 06/22/19 Subjective:: No adverse events overnight. Good urine output yesterday. Breathing feels better. Heart rate is in a good range. Reason For Visit: PAROXYSMAL AFIB WITH RVR,PAROXYSMAL COUGH,SEVERE Physical Exam Vital Signs: Temp Pulse Resp BP Pulse Ox 97.7 F 73 20 114/55 L 95 06/22/19 12:23 06/22/19 14:00 06/22/19 12:23 06/22/19 12:23 06/22/19 12:23 Intake & Output 06/21/19 06/22/19 06/23/19 06:59 06:59 06:59 Intake Total 1626 1850 50 Output Total 6000 1200 Balance -4374 650 50 Weight 112.3 kg General appearance: PRESENT: no acute distress, cooperative, disheveled, morbidly obese Respiratory exam: PRESENT: Decreased breath sounds, symmetrical, unlabored. ABSENT: accessory muscle use, chest wall tenderness, prolonged expiratory phas, retraction, rhonchi, tachypnea, wheezes, crackles Cardiovascular exam: PRESENT: irregular rhythm - Regular rate Pulses: PRESENT: normal carotid pulses Vascular exam: PRESENT: normal capillary refill GI/Abdominal exam: PRESENT: normal bowel sounds, soft. ABSENT: distended, guarding, rebound, tenderness Extremities exam: PRESENT: +1 edema - Bilateral lower extremities. ABSENT: clubbing, pedal edema Musculoskeletal exam: PRESENT: normal inspection. ABSENT: deformity Neurological exam: PRESENT: awake, oriented to person, oriented to place, oriented to situation Psychiatric exam: PRESENT: flat affect Skin exam: PRESENT: dry, warm Results Laboratory Results: 06/20/19 05:40 06/22/19 07:07 06/22/19 07:07 Sodium 132.9 L Potassium 4.7 Chloride 94 L Carbon Dioxide 28 Anion Gap 11 BUN 14 Creatinine 0.92 Est GFR ( Amer) > 60 Glucose 173 H Calcium 8.9 06/19/19 12:50 Clean Catch Midstream Urine Culture - Final Citrobacter Freundii Streptococcus Bovis Grp Group B Beta Streptococcus 06/18/19 06/18/19 06/18/19 21:18 21:18 22:48 Creatine Kinase Cancelled 120 CK-MB (CK-2) 1.61 Troponin I < 0.012 NT-Pro-B Natriuret Pep 06/18/19 06/19/19 06/19/19 22:48 00:35 04:31 Creatine Kinase CK-MB (CK-2) Troponin I < 0.012 < 0.012 NT-Pro-B Natriuret Pep 831 H 06/19/19 06/19/19 06/19/19 08:23 12:30 16:00 Creatine Kinase CK-MB (CK-2) Troponin I < 0.012 < 0.012 < 0.012 NT-Pro-B Natriuret Pep 06/19/19 20:20 Creatine Kinase CK-MB (CK-2) Troponin I < 0.012 NT-Pro-B Natriuret Pep Impressions: Chest X-Ray 06/18/19 21:15 IMPRESSION: Mild patchy basilar opacities are similar in appearance to prior study. Clinical correlation is advised. The possibility of infection is not excluded. Chest/Abdomen CTA 06/18/19 22:09 IMPRESSION: No aortic dissection or aneurysm. No pulmonary embolus. No definite pneumonia. Assessment and Plan - Diagnosis (1) Acute on chronic diastolic heart failure Is this a current diagnosis for this admission?: Yes Plan: She is getting oral Lasix once a day, responding well to fluid restriction. She got a single dose of IV Lasix yesterday and that has removed a lot of the excess fluid. (2) Acute respiratory failure with hypoxia Is this a current diagnosis for this admission?: Yes Plan: Currently stable on oxygen per nasal cannula, breathing comfortably. She was also on vancomycin but I think that the edema is from heart failure and fluid overload and not from a pneumonia. (3) Atrial fibrillation with RVR Is this a current diagnosis for this admission?: Yes Plan: Rate is controlled with metoprolol and digoxin, appears like it might be a flutter pattern on the monitor, she is anticoagulated (4) Cystitis Is this a current diagnosis for this admission?: Yes Plan: She is growing a Citrobacter out of the urine. Currently on meropenem, will consider switching to an oral agent at discharge (5) Diabetes mellitus type 2 in obese Is this a current diagnosis for this admission?: Yes Plan: We will continue a consistent carbohydrate diet and insulin sliding scale (6) Morbid obesity with BMI of 40.0-44.9, adult Is this a current diagnosis for this admission?: Yes Plan: Strongly encouraged lifestyle modification - Plan Summary Summary: Patient is admitted in a imcu/telemetry bed where she will receive routine supportive and symptomatic cares. She will be treated with IV fluids and supplemental oxygen via nasal cannula and/or BiPAP if required to maintain adequate oxygen saturation. She will also receive adequate analgesia for her chest pain using both nonnarcotic and narcotic treatments. A cardiology consultation will be obtained if her atrial fibrillation cannot be controlled with conversion to oral medications. Patient was placed on Rocephin and Zithromax prophylactically/empirically in the emergency room though no obvious source of infection was noted. Serial lactic acids will be obtained. Serial troponin I levels will also be obtained. A hemoglobin A1c, lipid profile and thyroid profile will be obtained. CBCs, metabolic profiles and magnesium levels will be obtained as appropriate. Patient will use morphine sulfate 2 to 4 mg IV every 2 hours as needed for severe pain. An effort will be made to withdraw the patient from the diltiazem infusion as soon as possible. Before meals and at bedtime Accu-Cheks to be obtained with sliding scale insulin available for hyperglycemia and a hypoglycemic protocol in place. Patient be continued on her usual medications as appropriate once her medication list has been verified and reconciled. Frozen Yogurt Maker consultation will be obtained for dietary evaluation and treatment of her obesity and diabetes. - Time Time Spent with patient: 15-24 minutes
[2019-06-22] MEDS: ALPRAZOLAM 0.5 MG TABLET PO PRN (21:10)
[2019-06-22] MEDS: AMITRIPTYLINE HCL 50 MG TABLET PO SCH (21:10)
[2019-06-22] MEDS: ZOLPIDEM TARTRATE 5 MG TABLET PO SCH (21:10)
[2019-06-23] MEDS: MEROPENEM 1 GM in NORMAL SALINE 50 ML IV SCH ×3 (02:39→18:00)
[2019-06-23] MEDS: LEVOTHYROXINE SODIUM 0.05 MG TABLET PO SCH (06:15)
[2019-06-23] MEDS: PANTOPRAZOLE SODIUM 40 MG TABLET.DR PO SCH (06:15)
[2019-06-23 06:21] LABS: ANION GAP 7 (5-19); BLOOD UREA NITROGEN 13 mg/dL (7-20); CALCIUM 8.8 mg/dL (8.4-10.2); CARBON DIOXIDE 33 mmol/L (22-30); CHLORIDE 95 mmol/L (98-107); GLUCOSE 141 mg/dL (75-110); POTASSIUM 4.2 mmol/L (3.6-5.0)
[2019-06-23] MEDS: FUROSEMIDE 40 MG TABLET PO SCH (10:58)
[2019-06-23] MEDS: GLIPIZIDE XL 5 MG TAB.ER.24 PO SCH (10:58)
[2019-06-23] MEDS: DOCUSATE SODIUM 100 MG CAPSULE PO SCH ×2 (10:59→18:01)
[2019-06-23] MEDS: SITAGLIPTIN PHOSPHATE 50 MG TABLET PO SCH (10:59)
[2019-06-23] MEDS: VENLAFAXINE HCL 75 MG CAP.SR.24H PO SCH (10:59)
[2019-06-23] MEDS: TOLTERODINE TARTRATE 1 MG TABLET PO SCH ×2 (11:00→21:35)
[2019-06-23] MEDS: MAGNESIUM OXIDE 400 MG TABLET PO SCH ×2 (11:00→18:01)
[2019-06-23] MEDS: METOPROLOL SUCCINATE 50 MG TAB.SR.24H PO SCH ×2 (11:00→21:34)
[2019-06-23] MEDS: INSULIN REG, HUMAN 100 UNIT/ML 3 ML VIAL (PYX) SUBCUT SCH ×3 (11:01→21:36)
[2019-06-23] MEDS: DIGOXIN 0.25 MG TABLET PO SCH (11:01)
[2019-06-23] MEDS: APIXABAN 5 MG TABLET PO SCH ×2 (11:09→18:01)
[2019-06-23] MEDS: FLUTICASONE/UMECLIDIN/VILANTER 100-62.5-25 MCG/DOSE IH SCH (11:10)
--- NOTE | 2019-06-23 11:53 | PDOC PROGRESS REPORT ---
Subjective Progress Note for:: 06/23/19 Subjective:: 53 year old female who presented to the emergency room with an acute cough. She admits the sudden development of a severe paroxysmal cough at approximately 5 PM on the day prior to admission. Her cough caused her to have severe pain in her ribs/chest bilaterally. Her cough was accompanied by moderate to severe dyspnea and associated with mild swelling in her hands and feet. She denies other associated or accompanying signs and symptoms. She denies prior similar episodes. She admits exposure to a person who had active influenza 72 to 96 hours prior to her presentation. She has not identified any aggravating or ameliorating factors for her cough. In the emergency room she was found to have an elevated white blood count at 13,900 and a elevated lactic acid of 2.5. She was noted to be tachypneic, tachycardic (A. fib with RVR) and hypoxic on evaluation. She was treated with IV diltiazem using a bolus and continuous infusion for her tachycardia without significant improvement. He was subsequently given IV metoprolol also with a less than desired response. She also received initial antibiotic therapy in the emergency room for a possible pneumonia although no pneumonia was noted on her pulmonary evaluations including a CT scan. A coronavirus screening was administered in the ER. Patient was subsequently admitted to the hospital for further evaluation and treatment. 06/18/19-The patient is short of breath. She feels gurgling breath sounds. She looks quite uncomfortable. 06/20/19-No adverse events overnight. Feels fatigued. Not short of breath at rest but has not tried to get up and walk. No cough. No fevers. Heart rate is in the 80s in the 90s on monitor. 06/22/19-No adverse events overnight. Good urine output yesterday. Breathing feels better. Heart rate is in a good range. 06/23/2019-patient is comfortable in the bed denies any problems. No acute events in the last 24 hours. Pulse ox is 95% 2 L. Flu is negative. Urine culture is positive for Citrobacter on meropenem. For A. fib she is on metoprolol and digoxin. Reason For Visit: PAROXYSMAL AFIB WITH RVR,PAROXYSMAL COUGH,SEVERE Physical Exam Vital Signs: Temp Pulse Resp BP Pulse Ox 97.8 F 68 20 125/57 L 98 06/23/19 07:52 06/23/19 07:52 06/23/19 07:52 06/23/19 07:52 06/23/19 07:52 Intake & Output 06/22/19 06/23/19 06/24/19 06:59 06:59 06:59 Intake Total 1850 660 Output Total 1200 1000 Balance 650 -340 Weight 109.5 kg General appearance: PRESENT: no acute distress, obese, well-developed Head exam: PRESENT: atraumatic Eye exam: PRESENT: PERRLA Mouth exam: PRESENT: moist, tongue midline Neck exam: ABSENT: carotid bruit, JVD, lymphadenopathy, thyromegaly Respiratory exam: PRESENT: decreased breath sounds Cardiovascular exam: PRESENT: RRR. ABSENT: diastolic murmur, rubs, systolic murmur Pulses: PRESENT: normal dorsalis pedis pul GI/Abdominal exam: PRESENT: normal bowel sounds, soft. ABSENT: distended, guarding, mass, organolmegaly, rebound, tenderness Rectal exam: PRESENT: deferred Extremities exam: PRESENT: full ROM. ABSENT: calf tenderness, clubbing, pedal edema Neurological exam: PRESENT: alert, awake, oriented to person, oriented to place, oriented to time, oriented to situation, CN II-XII grossly intact. ABSENT: motor sensory deficit Psychiatric exam: PRESENT: appropriate affect, normal mood. ABSENT: homicidal ideation, suicidal ideation Results Laboratory Results: 06/20/19 05:40 06/23/19 05:28 06/23/19 05:28 Sodium 134.5 L Potassium 4.2 Chloride 95 L Carbon Dioxide 33 H Anion Gap 7 BUN 13 Creatinine 0.83 Est GFR ( Amer) > 60 Glucose 141 H Calcium 8.8 06/19/19 12:50 Clean Catch Midstream Urine Culture - Final Citrobacter Freundii Streptococcus Bovis Grp Group B Beta Streptococcus 06/18/19 06/18/19 06/18/19 21:18 21:18 22:48 Creatine Kinase Cancelled 120 CK-MB (CK-2) 1.61 Troponin I < 0.012 NT-Pro-B Natriuret Pep 06/18/19 06/19/19 06/19/19 22:48 00:35 04:31 Creatine Kinase CK-MB (CK-2) Troponin I < 0.012 < 0.012 NT-Pro-B Natriuret Pep 831 H 06/19/19 06/19/19 06/19/19 08:23 12:30 16:00 Creatine Kinase CK-MB (CK-2) Troponin I < 0.012 < 0.012 < 0.012 NT-Pro-B Natriuret Pep 06/19/19 20:20 Creatine Kinase CK-MB (CK-2) Troponin I < 0.012 NT-Pro-B Natriuret Pep Impressions: Chest X-Ray 06/18/19 21:15 IMPRESSION: Mild patchy basilar opacities are similar in appearance to prior study. Clinical correlation is advised. The possibility of infection is not excluded. Chest/Abdomen CTA 06/18/19 22:09 IMPRESSION: No aortic dissection or aneurysm. No pulmonary embolus. No definite pneumonia. Assessment and Plan - Diagnosis (1) Acute on chronic diastolic heart failure Is this a current diagnosis for this admission?: Yes Plan: She is getting oral Lasix once a day, responding well to fluid restriction. She got a single dose of IV Lasix yesterday and that has removed a lot of the excess fluid. 06/23/2019-on examination patient is euvolemic. Receiving p.o. Lasix 40 mg d aily.. (2) Acute respiratory failure with hypoxia Is this a current diagnosis for this admission?: Yes Plan: Currently stable on oxygen per nasal cannula, breathing comfortably. She was also on vancomycin but I think that the edema is from heart failure and fluid overload and not from a pneumonia. 06/23/2019-pulse ox is 95% on 2 L. Comfortable in the bed communicating well. On examination bilateral entry was decreased no wheezing no crepitations present. covid testing is pending. Flu is negative. (3) Atrial fibrillation with RVR Is this a current diagnosis for this admission?: Yes Plan: Rate is controlled with metoprolol and digoxin, appears like it might be a flutter pattern on the monitor, she is anticoagulated 06/23/2019-patient is on a fixed band for atrial fibrillation and for rate control she is on digoxin and metoprolol. Heart rates in the 90s. In sinus rhythm. (4) Cystitis Is this a current diagnosis for this admission?: Yes Plan: She is growing a Citrobacter out of the urine. Currently on meropenem, will consider switching to an oral agent at discharge 06/23/2019-urine culture is growing Citrobacter, Streptococcus bovis group, group B streptococcus. Presently on meropenem. Afebrile. Plan is to continue the present management. (5) Diabetes mellitus type 2 in obese Is this a current diagnosis for this admission?: No Plan: We will continue a consistent carbohydrate diet and insulin sliding scale 06/23/2019-latest blood sugar is 143. hemoGlobin A1c is 11.3. Diet exercise weight loss lifestyle modifications discussed with the patient. (6) Morbid obesity with BMI of 40.0-44.9, adult Is this a current diagnosis for this admission?: No Plan: Strongly encouraged lifestyle modification - Plan Summary Summary: Patient is admitted in a imcu/telemetry bed where she will receive routine supportive and symptomatic cares. She will be treated with IV fluids and supplemental oxygen via nasal cannula and/or BiPAP if required to maintain adequate oxygen saturation. She will also receive adequate analgesia for her chest pain using both nonnarcotic and narcotic treatments. A cardiology consultation will be obtained if her atrial fibrillation cannot be controlled with conversion to oral medications. Patient was placed on Rocephin and Zithromax prophylactically/empirically in the emergency room though no obvious source of infection was noted. Serial lactic acids will be obtained. Serial troponin I levels will also be obtained. A hemoglobin A1c, lipid profile and t hyroid profile will be obtained. CBCs, metabolic profiles and magnesium levels will be obtained as appropriate. Patient will use morphine sulfate 2 to 4 mg IV every 2 hours as needed for severe pain. An effort will be made to withdraw the patient from the diltiazem infusion as soon as possible. Before meals and at bedtime Accu-Cheks to be obtained with sliding scale insulin available for hyper glycemia and a hypoglycemic protocol in place. Patient be continued on her usual medications as appropriate once her medication list has been verified and reconciled. Panel Machine Operator consultation will be obtained for dietary evaluation and treatment of her obesity and diabetes.
[2019-06-23] MEDS: ZOLPIDEM TARTRATE 5 MG TABLET PO SCH (21:34)
[2019-06-23] MEDS: AMITRIPTYLINE HCL 50 MG TABLET PO SCH (21:34)
[2019-06-23] MEDS: ALPRAZOLAM 0.5 MG TABLET PO PRN (21:34)
[2019-06-24] MEDS: MEROPENEM 1 GM in NORMAL SALINE 50 ML IV SCH ×3 (02:36→17:56)
[2019-06-24] MEDS: HYDROCODONE/ACETAMINOPHEN 5-325 MG TABLET PO PRN ×2 (02:36→09:46)
[2019-06-24] MEDS ORDERED: PANTOPRAZOLE SODIUM 40 MG TABLET.DR PO ONE (04:56)
[2019-06-24] MEDS: PANTOPRAZOLE SODIUM 40 MG TABLET.DR PO SCH (05:07)
[2019-06-24] MEDS: LEVOTHYROXINE SODIUM 0.05 MG TABLET PO SCH (05:08)
[2019-06-24 06:04] LABS: ABSOLUTE BASOPHILS # (AUTO) 0.1 10^3/uL (0.0-0.2); ABSOLUTE EOSINOPHILS # (AUTO) 0.2 10^3/uL (0.0-0.6); ABSOLUTE LYMPHOCYTES (AUTO) 2.7 10^3/uL (0.5-4.7); ABSOLUTE MONOCYTES (AUTO) 0.4 10^3/uL (0.1-1.4); ABSOLUTE NEUT (AUTO) 4.3 10^3/uL (1.7-8.2); BASOPHILS % (AUTO) 0.9 % (0-2); EOSINOPHILS % (AUTO) 2.3 % (0-6); HEMATOCRIT 39.9 % (36.0-47.0); HEMOGLOBIN 13.3 g/dL (12.0-15.5); LYMPHOCYTES % (AUTO) 35.1 % (13-45); MEAN CORPUSCULAR HGB CONC 33.4 g/dL (32.0-36.0); MEAN CORPUSCULAR VOLUME 96 fl (80-97); MONOCYTES % (AUTO) 5.8 % (3-13); PLATELET COUNT 306 10^3/uL (150-450); RED BLOOD COUNT 4.17 10^6/uL (3.72-5.28); RED CELL DISTRIBUTION WIDTH 13.7 % (11.5-14.0); SEGMENTED NEUTROPHILS % (AUTO) 55.9 % (42-78); TOTAL CELLS COUNTED % (AUTO) 100 %; WHITE BLOOD COUNT 7.6 10^3/uL (4.0-10.5)
[2019-06-24 06:19] LABS: ANION GAP 7 (5-19); BLOOD UREA NITROGEN 11 mg/dL (7-20); CALCIUM 9.1 mg/dL (8.4-10.2); CARBON DIOXIDE 32 mmol/L (22-30); CHLORIDE 96 mmol/L (98-107); GLUCOSE 141 mg/dL (75-110); POTASSIUM 4.2 mmol/L (3.6-5.0)
[2019-06-24] MEDS: INSULIN REG, HUMAN 100 UNIT/ML 3 ML VIAL (PYX) SUBCUT SCH ×4 (08:51→21:24)
[2019-06-24] MEDS: FUROSEMIDE 40 MG TABLET PO SCH (09:39)
[2019-06-24] MEDS: DOCUSATE SODIUM 100 MG CAPSULE PO SCH ×2 (09:39→17:55)
[2019-06-24] MEDS: APIXABAN 5 MG TABLET PO SCH ×2 (09:39→17:55)
[2019-06-24] MEDS: MAGNESIUM OXIDE 400 MG TABLET PO SCH ×2 (09:39→17:55)
[2019-06-24] MEDS: VENLAFAXINE HCL 75 MG CAP.SR.24H PO SCH (09:40)
[2019-06-24] MEDS: GLIPIZIDE XL 5 MG TAB.ER.24 PO SCH (09:40)
[2019-06-24] MEDS: TOLTERODINE TARTRATE 1 MG TABLET PO SCH ×2 (09:40→21:22)
[2019-06-24] MEDS: SITAGLIPTIN PHOSPHATE 50 MG TABLET PO SCH (09:40)
[2019-06-24] MEDS: METOPROLOL SUCCINATE 50 MG TAB.SR.24H PO SCH ×2 (09:40→21:23)
[2019-06-24] MEDS: DIGOXIN 0.25 MG TABLET PO SCH (09:41)
[2019-06-24] MEDS: FLUTICASONE/UMECLIDIN/VILANTER 100-62.5-25 MCG/DOSE IH SCH (09:44)
--- NOTE | 2019-06-24 10:04 | PDOC PROGRESS REPORT ---
Subjective Progress Note for:: 06/24/19 Subjective:: 53 year old female who presented to the emergency room with an acute cough. She admits the sudden development of a severe paroxysmal cough at approximately 5 PM on the day prior to admission. Her cough caused her to have severe pain in her ribs/chest bilaterally. Her cough was accompanied by moderate to severe dyspnea and associated with mild swelling in her hands and feet. She denies other associated or accompanying signs and symptoms. She denies prior similar episodes. She admits exposure to a person who had active influenza 72 to 96 hours prior to her presentation. She has not identified any aggravating or ameliorating factors for her cough. In the emergency room she was found to have an elevated white blood count at 13,900 and a elevated lactic acid of 2.5. She was noted to be tachypneic, tachycardic (A. fib with RVR) and hypoxic on evaluation. She was treated with IV diltiazem using a bolus and continuous infusion for her tachycardia without significant improvement. He was subsequently given IV metoprolol also with a less than desired response. She also received initial antibiotic therapy in the emergency room for a possible pneumonia although no pneumonia was noted on her pulmonary evaluations including a CT scan. A coronavirus screening was administered in the ER. Patient was subsequently admitted to the hospital for further evaluation and treatment. 06/18/19-The patient is short of breath. She feels gurgling breath sounds. She looks quite uncomfortable. 06/20/19-No adverse events overnight. Feels fatigued. Not short of breath at rest but has not tried to get up and walk. No cough. No fevers. Heart rate is in the 80s in the 90s on monitor. 06/22/19-No adverse events overnight. Good urine output yesterday. Breathing feels better. Heart rate is in a good range. 06/23/2019-patient is comfortable in the bed denies any problems. No acute events in the last 24 hours. Pulse ox is 95% 2 L. Flu is negative. Urine culture is positive for Citrobacter on meropenem. For A. fib she is on metoprolol and digoxin. 06/24/2019-comfortably in the bed communicating well. Not in distress. Receiving meropenem IV for Citrobacter in the urine. Plan is to switch the antibiotics to p.o. from today if possible and possible discharge tomorrow. Reason For Visit: PAROXYSMAL AFIB WITH RVR,PAROXYSMAL COUGH,SEVERE Physical Exam Vital Signs: Temp Pulse Resp BP Pulse Ox 98.7 F 71 18 133/96 H 90 L 06/24/19 06:07 06/24/19 06:07 06/24/19 06:07 06/24/19 06:07 06/24/19 06:07 Intake & Output 06/23/19 06/24/19 06/25/19 06:59 06:59 06:59 Intake Total 660 1720 Output Total 1000 2875 Balance -340 -1155 Weight 109.5 kg 108.5 kg General appearance: PRESENT: no acute distress, morbidly obese Head exam: PRESENT: atraumatic Eye exam: PRESENT: PERRLA Mouth exam: PRESENT: moist, tongue midline Teeth exam: PRESENT: poor dentation Neck exam: ABSENT: carotid bruit, JVD, lymphadenopathy, thyromegaly Respiratory exam: PRESENT: decreased breath sounds Cardiovascular exam: PRESENT: tachycardia GI/Abdominal exam: PRESENT: normal bowel sounds, soft. ABSENT: distended, guarding, mass, organolmegaly, rebound, tenderness Rectal exam: PRESENT: deferred Extremities exam: PRESENT: full ROM. ABSENT: calf tenderness, clubbing, pedal edema Neurological exam: PRESENT: alert, awake, oriented to person, oriented to place, oriented to time, oriented to situation, CN II-XII grossly intact. ABSENT: motor sensory deficit Psychiatric exam: PRESENT: appropriate affect, normal mood. ABSENT: homicidal ideation, suicidal ideation Results Laboratory Results: 06/24/19 05:27 06/24/19 05:27 06/24/19 06/24/19 05:27 05:27 WBC 7.6 RBC 4.17 Hgb 13.3 Hct 39.9 MCV 96 MCH 32.0 MCHC 33.4 RDW 13.7 Plt Count 306 Seg Neutrophils % 55.9 Sodium 135.1 L Potassium 4.2 Chloride 96 L Carbon Dioxide 32 H Anion Gap 7 BUN 11 Creatinine 0.76 Est GFR ( Amer) > 60 Glucose 141 H Calcium 9.1 Magnesium 1.8 06/18/19 21:42 Blood Blood Culture - Final NO GROWTH IN 5 DAYS 06/18/19 06/18/19 06/18/19 21:18 21:18 22:48 Creatine Kinase Cancelled 120 CK-MB (CK-2) 1.61 Troponin I < 0.012 NT-Pro-B Natriuret Pep 06/18/19 06/19/19 06/19/19 22:48 00:35 04:31 Creatine Kinase CK-MB (CK-2) Troponin I < 0.012 < 0.012 NT-Pro-B Natriuret Pep 831 H 06/19/19 06/19/19 06/19/19 08:23 12:30 16:00 Creatine Kinase CK-MB (CK-2) Troponin I < 0.012 < 0.012 < 0.012 NT-Pro-B Natriuret Pep 06/19/19 20:20 Creatine Kinase CK-MB (CK-2) Troponin I < 0.012 NT-Pro-B Natriuret Pep Impressions: Chest X-Ray 06/18/19 21:15 IMPRESSION: Mild patchy basilar opacities are similar in appearance to prior study. Clinical correlation is advised. The possibility of infection is not excluded. Chest/Abdomen CTA 06/18/19 22:09 IMPRESSION: No aortic dissection or aneurysm. No pulmonary embolus. No definite pneumonia. Assessment and Plan - Diagnosis (1) Acute on chronic diastolic heart failure Is this a current diagnosis for this admission?: Yes Plan: She is getting oral Lasix once a day, responding well to fluid restriction. She got a single dose of IV Lasix yesterday and that has removed a lot of the excess fluid. 06/23/2019-on examination patient is euvolemic. Receiving p.o. Lasix 40 mg daily.. 06/24/2019-patient has history of chronic diastolic heart failure not in fluid overload. Plan is to continue Lasix 40 mg p.o. daily. (2) Acute respiratory failure with hypoxia Is this a current diagnosis for this admission?: Yes Plan: Currently stable on oxygen per nasal cannula, breathing comfortably. She was also on vancomycin but I think that the edema is from heart failure and fluid overload and not from a pneumonia. 06/23/2019-pulse ox is 95% on 2 L. Comfortable in the bed communicating well. On examination bilateral entry was decreased no wheezing no crepitations present. covid testing is pending. Flu is negative. 06/24/2019-ox is 90% on room air this morning. Comfortable in the bed communicating well. On examination chest bilateral entry was decreased no wheezing no crepitations. Coronavirus testing is pending. (3) Atrial fibrillation with RVR Is this a current diagnosis for this admission?: Yes Plan: Rate is controlled with metoprolol and digoxin, appears like it might be a flu tter pattern on the monitor, she is anticoagulated 06/23/2019-patient is on a aphixaban for atrial fibrillation and for rate control she is on digoxin and metoprolol. Heart rates in the 90s. In sinus rhythm. 06/24/19-patient has history of chronic atrial fibrillation on apixaban. Heart is controlled and presently on digoxin and metoprolol. The heart rate this morning 72. (4) Cystitis Is this a current diagnosis for this admission?: Yes Plan: She is growing a Citrobacter out of the urine. Currently on meropenem, will consider switching to an oral agent at discharge 06/23/2019-urine culture is growing Citrobacter, Streptococcus bovis group, group B streptococcus. Presently on meropenem. Afebrile. Plan is to continue the present management. (5) Diabetes mellitus type 2 in obese Is this a current diagnosis for this admission?: No Plan: We will continue a consistent carbohydrate diet and insulin sliding scale 06/23/2019-latest blood sugar is 143. hemoGlobin A1c is 11.3. Diet exercise weight loss lifestyle modifications discussed with the patient. 06/24/2019-blood sugar today 141. Stable. Plan is to continue insulin sliding scale. (6) Morbid obesity with BMI of 40.0-44.9, adult Is this a current diagnosis for this admission?: No - Plan Summary Summary: Patient is admitted in a imcu/telemetry bed where she will receive routine supportive and symptomatic cares. She will be treated with IV fluids and supplemental oxygen via nasal cannula and/or BiPAP if required to maintain adequate oxygen saturation. She will also receive adequate analgesia for her chest pain using both nonnarcotic and narcotic treatments. A cardiology consultation will be obtained if her atrial fibrillation cannot be controlled with conversion to oral medications. Patient was placed on Rocephin and Zithromax prophylactically/empirically in the emergency room though no obvious source of infection was noted. Serial lactic acids will be obtained. Serial troponin I levels will also be obtained. A hemoglobin A1c, lipid profile and thyroid profile will be obtained. CBCs, metabolic profiles and magnesium levels will be obtained as appropriate. Patient will use morphine sulfate 2 to 4 mg IV every 2 hours as needed for severe pain. An effort will be made to withdraw the patient from the diltiazem infusion as soon as possible. Before meals and at bedtime Accu-Cheks to be obtained with sliding scale insulin available for hyperglycemia and a hypoglycemic protocol in place. Patient be continued on her usual medications as appropriate once her medication list has been verified and reconciled. Tile Trimmer consultation will be obtained for dietary evaluation and treatment of her obesity and diabetes.
[2019-06-24] MEDS: AMITRIPTYLINE HCL 50 MG TABLET PO SCH (21:22)
[2019-06-24] MEDS: ALPRAZOLAM 0.5 MG TABLET PO PRN (21:23)
[2019-06-24] MEDS: ZOLPIDEM TARTRATE 5 MG TABLET PO SCH (21:23)
[2019-06-25] MEDS: MEROPENEM 1 GM in NORMAL SALINE 50 ML IV SCH ×2 (01:23→09:28)
[2019-06-25] MEDS: PANTOPRAZOLE SODIUM 40 MG TABLET.DR PO SCH (05:42)
[2019-06-25] MEDS: LEVOTHYROXINE SODIUM 0.05 MG TABLET PO SCH (05:43)
[2019-06-25 06:26] LABS: ANION GAP 9 (5-19); BLOOD UREA NITROGEN 10 mg/dL (7-20); CALCIUM 9.4 mg/dL (8.4-10.2); CARBON DIOXIDE 29 mmol/L (22-30); CHLORIDE 97 mmol/L (98-107); GLUCOSE 143 mg/dL (75-110); POTASSIUM 4.3 mmol/L (3.6-5.0)
[2019-06-25] MEDS: INSULIN REG, HUMAN 100 UNIT/ML 3 ML VIAL (PYX) SUBCUT SCH ×4 (08:54→21:39)
[2019-06-25] MEDS: MAGNESIUM OXIDE 400 MG TABLET PO SCH ×2 (09:28→17:06)
[2019-06-25] MEDS: FUROSEMIDE 40 MG TABLET PO SCH (09:28)
[2019-06-25] MEDS: SITAGLIPTIN PHOSPHATE 50 MG TABLET PO SCH (09:28)
[2019-06-25] MEDS: VENLAFAXINE HCL 75 MG CAP.SR.24H PO SCH (09:28)
[2019-06-25] MEDS: TOLTERODINE TARTRATE 1 MG TABLET PO SCH ×2 (09:28→21:39)
[2019-06-25] MEDS: APIXABAN 5 MG TABLET PO SCH ×2 (09:28→17:06)
[2019-06-25] MEDS: METOPROLOL SUCCINATE 50 MG TAB.SR.24H PO SCH ×2 (09:28→21:38)
[2019-06-25] MEDS: GLIPIZIDE XL 5 MG TAB.ER.24 PO SCH (09:28)
[2019-06-25] MEDS: DOCUSATE SODIUM 100 MG CAPSULE PO SCH ×2 (09:28→17:06)
[2019-06-25] MEDS: DIGOXIN 0.25 MG TABLET PO SCH (09:28)
[2019-06-25] MEDS: FLUTICASONE/UMECLIDIN/VILANTER 100-62.5-25 MCG/DOSE IH SCH (09:29)
--- NOTE | 2019-06-25 12:56 | PDOC PROGRESS REPORT ---
Subjective Progress Note for:: 06/25/19 Subjective:: 53 year old female who presented to the emergency room with an acute cough. She admits the sudden development of a severe paroxysmal cough at approximately 5 PM on the day prior to admission. Her cough caused her to have severe pain in her ribs/chest bilaterally. Her cough was accompanied by moderate to severe dyspnea and associated with mild swelling in her hands and feet. She denies other associated or accompanying signs and symptoms. She denies prior similar episodes. She admits exposure to a person who had active influenza 72 to 96 hours prior to her presentation. She has not identified any aggravating or ameliorating factors for her cough. In the emergency room she was found to have an elevated white blood count at 13,900 and a elevated lactic acid of 2.5. She was noted to be tachypneic, tachycardic (A. fib with RVR) and hypoxic on evaluation. She was treated with IV diltiazem using a bolus and continuous infusion for her tachycardia without significant improvement. He was subsequently given IV metoprolol also with a less than desired response. She also received initial antibiotic therapy in the emergency room for a possible pneumonia although no pneumonia was noted on her pulmonary evaluations including a CT scan. A coronavirus screening was administered in the ER. Patient was subsequently admitted to the hospital for further evaluation and treatment. 06/18/19-The patient is short of breath. She feels gurgling breath sounds. She looks quite uncomfortable. 06/20/19-No adverse events overnight. Feels fatigued. Not short of breath at rest but has not tried to get up and walk. No cough. No fevers. Heart rate is in the 80s in the 90s on monitor. 06/22/19-No adverse events overnight. Good urine output yesterday. Breathing feels better. Heart rate is in a good range. 06/23/2019-patient is comfortable in the bed denies any problems. No acute events in the last 24 hours. Pulse ox is 95% 2 L. Flu is negative. Urine culture is positive for Citrobacter on meropenem. For A. fib she is on metoprolol and digoxin. 06/24/2019-comfortably in the bed communicating well. Not in distress. Receiving meropenem IV for Citrobacter in the urine. Plan is to switch the antibiotics to p.o. from today if possible and possible discharge tomorrow. 06/25/2019-no acute events in the last 24 hours. Patient is receiving IV meropenem for Citrobacter in the urine. Afebrile. I called pharmacy to discuss about changing the antibiotics to p.o. version. Pharmacy is going to call me back. Patient agreed to stay until tomorrow waiting for coronavirus test results. Reason For Visit: PAROXYSMAL AFIB WITH RVR,PAROXYSMAL COUGH,SEVERE Physical Exam Vital Signs: Temp Pulse Resp BP Pulse Ox 99.1 F 68 17 132/57 H 93 06/25/19 11:18 06/25/19 11:18 06/25/19 11:18 06/25/19 11:18 06/25/19 11:18 Intake & Output 06/24/19 06/25/19 06/26/19 06:59 06:59 06:59 Intake Total 1720 1336 170 Output Total 2875 Balance -1155 1336 170 Weight 108.5 kg 108.8 kg General appearance: PRESENT: no acute distress, obese Head exam: PRESENT: atraumatic Eye exam: PRESENT: PERRLA Mouth exam: PRESENT: moist, tongue midline Teeth exam: PRESENT: poor dentation Neck exam: ABSENT: carotid bruit, JVD, lymphadenopathy, thyromegaly Respiratory exam: PRESENT: decreased breath sounds Cardiovascular exam: PRESENT: RRR. ABSENT: diastolic murmur, rubs, systolic murmur GI/Abdominal exam: PRESENT: normal bowel sounds, soft. ABSENT: distended, guarding, mass, organolmegaly, rebound, tenderness Rectal exam: PRESENT: deferred Extremities exam: PRESENT: full ROM. ABSENT: calf tenderness, clubbing, pedal edema Neurological exam: PRESENT: alert, awake, oriented to person, oriented to place, oriented to time, oriented to situation, CN II-XII grossly intact. ABSENT: motor sensory deficit Psychiatric exam: PRESENT: appropriate affect, normal mood. ABSENT: homicidal ideation, suicidal ideation Results Laboratory Results: 06/24/19 05:27 06/25/19 05:55 06/25/19 05:55 Sodium 134.8 L Potassium 4.3 Chloride 97 L Carbon Dioxide 29 Anion Gap 9 BUN 10 Creatinine 0.79 Est GFR ( Amer) > 60 Glucose 143 H Calcium 9.4 06/18/19 06/18/19 06/18/19 21:18 21:18 22:48 Creatine Kinase Cancelled 120 CK-MB (CK-2) 1.61 Troponin I < 0.012 NT-Pro-B Natriuret Pep 06/18/19 06/19/19 06/19/19 22:48 00:35 04:31 Creatine Kinase CK-MB (CK-2) Troponin I < 0.012 < 0.012 NT-Pro-B Natriuret Pep 831 H 06/19/19 06/19/19 06/19/19 08:23 12:30 16:00 Creatine Kinase CK-MB (CK-2) Troponin I < 0.012 < 0.012 < 0.012 NT-Pro-B Natriuret Pep 06/19/19 20:20 Creatine Kinase CK-MB (CK-2) Troponin I < 0.012 NT-Pro-B Natriuret Pep Impressions: Chest X-Ray 06/18/19 21:15 IMPRESSION: Mild patchy basilar opacities are similar in appearance to prior study. Clinical correlation is advised. The possibility of infection is not excluded. Chest/Abdomen CTA 06/18/19 22:09 IMPRESSION: No aortic dissection or aneurysm. No pulmonary embolus. No definite pneumonia. Assessment and Plan - Diagnosis (1) Acute on chronic diastolic heart failure Is this a current diagnosis for this admission?: Yes Plan: She is getting oral Lasix once a day, responding well to fluid restriction. She got a single dose of IV Lasix yesterday and that has removed a lot of the excess fluid. 06/23/2019-on examination patient is euvolemic. Receiving p.o. Lasix 40 mg daily.. 06/24/2019-patient has history of chronic diastolic heart failure not in fluid overload. Plan is to continue Lasix 40 mg p.o. daily. 06/25/2019-patient has history of acute on chronic heart failure, diastolic heart failure plan is to continue Lasix 40 mg p.o. daily.3 (2) Acute respiratory failure with hypoxia Is this a current diagnosis for this admission?: Yes Plan: Currently stable on oxygen per nasal cannula, breathing comfortably. She was also on vancomycin but I think that the edema is from heart failure and fluid overload and not from a pneumonia. 06/23/2019-pulse ox is 95% on 2 L. Comfortable in the bed communicating well. On examination bilateral entry was decreased no wheezing no crepitations pr esent. covid testing is pending. Flu is negative. 06/24/2019-ox is 90% on room air this morning. Comfortable in the bed communicating well. On examination chest bilateral entry was decreased no wh eezing no crepitations. Coronavirus testing is pending. 06/25/19-pulse ox is 92 % on 1 1/2 lt oxygen .. not in distress (3) Atrial fibrillation with RVR Is this a current diagnosis for this admission?: Yes Plan: Rate is controlled with metoprolol and digoxin, appears like it might be a flutter pattern on the monitor, she is anticoagulated 06/23/2019-patient is on a aphixaban for atrial fibrillation and for rate control she is on digoxin and metoprolol. Heart rates in the 90s. In sinus rhythm. 06/24/19-patient has history of chronic atrial fibrillation on apixaban. Heart is controlled and presently on digoxin and metoprolol. The heart rate this morning 72. 06/25/2019-patient has history of chronic atrial fibrillation on aphiban. For rate control she is on digoxin and metoprolol. The heart rate today is 66 in sinus rhythm. (4) Cystitis Is this a current diagnosis for this admission?: Yes Plan: She is growing a Citrobacter out of the urine. Currently on meropenem, will consider switching to an oral agent at discharge 06/23/2019-urine culture is growing Citrobacter, Streptococcus bovis group, group B streptococcus. Presently on meropenem. Afebrile. Plan is to continue the present management. 06/25/2019-urine culture is positive for Citrobacter on meropenem I spoke to the pharmacy the recommendation is to change the antibiotic Cipro 250 twice daily. (5) Diabetes mellitus type 2 in obese Is this a current diagnosis for this admission?: No (6) Morbid obesity with BMI of 40.0-44.9, adult Is this a current diagnosis for this admission?: No - Plan Summary Summary: Patient is admitted in a imcu/telemetry bed where she will receive routine supportive and symptomatic cares. She will be treated with IV fluids and supplemental oxygen via nasal cannula and/or BiPAP if required to maintain adequate oxygen saturation. She will also receive adequate analgesia for her chest pain using both nonnarcotic and narcotic treatments. A cardiology consultation will be obtained if her atrial fibrillation cannot be controlled with conversion to oral medications. Patient was placed on Rocephin and Zithromax prophylactically/empirically in the emergency room though no obvious source of infection was noted. Serial lactic acids will be obtained. Serial troponin I levels will also be obtained. A hemoglobin A1c, lipid profile and thyroid profile will be obtained. CBCs, metabolic profiles and magnesium levels will be obtained as appropriate. Patient will use morphine sulfate 2 to 4 mg IV every 2 hours as needed for severe pain. An effort will be made to withdraw the patient from the diltiazem infusion as soon as possible. Before meals and at bedtime Accu-Cheks to be obtained with sliding scale insulin available for hyperglycemia and a hypoglycemic protocol in place. Patient be continued on her usual medications as appropriate once her medication list has been verified and reconciled. [employer] Missile [employer]man consultation will be obtained for dietary evaluation and treatment of her obesity and diabetes.
[2019-06-25] MEDS: TIZANIDINE HCL 4 MG TABLET PO SCH ×2 (14:06→21:39)
[2019-06-25] MEDS: NITROFURANTOIN MONOHYD/M-CRYST 100 MG CAPSULE PO SCH (17:06)
[2019-06-25] MEDS: ZOLPIDEM TARTRATE 5 MG TABLET PO SCH (21:39)
[2019-06-25] MEDS: AMITRIPTYLINE HCL 50 MG TABLET PO SCH (21:39)
[2019-06-25] MEDS ORDERED: (PENDING PHARMACY ID) (Fluticasone/Salmeterol 1 INH) IH SCH (22:00)
[2019-06-25] MEDS ORDERED: CIPROFLOXACIN HCL 500 MG TABLET PO SCH (22:00)
[2019-06-26] MEDS: TIZANIDINE HCL 4 MG TABLET PO SCH ×3 (05:54→21:22)
[2019-06-26] MEDS: LEVOTHYROXINE SODIUM 0.05 MG TABLET PO SCH (05:54)
[2019-06-26] MEDS: PANTOPRAZOLE SODIUM 40 MG TABLET.DR PO SCH (05:54)
[2019-06-26 06:23] LABS: ABSOLUTE BASOPHILS # (AUTO) 0.1 10^3/uL (0.0-0.2); ABSOLUTE EOSINOPHILS # (AUTO) 0.2 10^3/uL (0.0-0.6); ABSOLUTE LYMPHOCYTES (AUTO) 2.7 10^3/uL (0.5-4.7); ABSOLUTE MONOCYTES (AUTO) 0.5 10^3/uL (0.1-1.4); TOTAL CELLS COUNTED % (AUTO) 100 %
[2019-06-26 06:33] LABS: ABSOLUTE NEUT (AUTO) 5.3 10^3/uL (1.7-8.2); BASOPHILS % (AUTO) 1.1 % (0-2); EOSINOPHILS % (AUTO) 2.3 % (0-6); HEMATOCRIT 40.9 % (36.0-47.0); HEMOGLOBIN 13.9 g/dL (12.0-15.5); LYMPHOCYTES % (AUTO) 31.2 % (13-45); MEAN CORPUSCULAR HEMOGLOBIN 32.3 pg (27.0-33.4); MEAN CORPUSCULAR HGB CONC 33.9 g/dL (32.0-36.0); MEAN CORPUSCULAR VOLUME 95 fl (80-97); MONOCYTES % (AUTO) 5.6 % (3-13); PLATELET COUNT 335 10^3/uL (150-450); RED BLOOD COUNT 4.29 10^6/uL (3.72-5.28); RED CELL DISTRIBUTION WIDTH 13.8 % (11.5-14.0); SEGMENTED NEUTROPHILS % (AUTO) 59.8 % (42-78); WHITE BLOOD COUNT 8.8 10^3/uL (4.0-10.5)
[2019-06-26 06:44] LABS: ALBUMIN 3.7 g/dL (3.5-5.0); ALKALINE PHOSPHATASE 136 U/L (38-126); ANION GAP 9 (5-19); ASPARTATE AMINO TRANSFERASE 38 U/L (14-36); BILIRUBIN,TOTAL 0.7 mg/dL (0.2-1.3); BLOOD UREA NITROGEN 10 mg/dL (7-20); CALCIUM 9.3 mg/dL (8.4-10.2); CARBON DIOXIDE 29 mmol/L (22-30); CHLORIDE 96 mmol/L (98-107); GLUCOSE 137 mg/dL (75-110); POTASSIUM 4.2 mmol/L (3.6-5.0); TOTAL PROTEIN 6.4 g/dL (6.3-8.2)
[2019-06-26] MEDS: INSULIN REG, HUMAN 100 UNIT/ML 3 ML VIAL (PYX) SUBCUT SCH ×4 (07:59→21:22)
[2019-06-26] MEDS: GLIPIZIDE XL 5 MG TAB.ER.24 PO SCH (07:59)
[2019-06-26] MEDS: SITAGLIPTIN PHOSPHATE 50 MG TABLET PO SCH (09:22)
[2019-06-26] MEDS: DIGOXIN 0.25 MG TABLET PO SCH (09:22)
[2019-06-26] MEDS: TOLTERODINE TARTRATE 1 MG TABLET PO SCH ×2 (09:22→21:22)
[2019-06-26] MEDS: DOCUSATE SODIUM 100 MG CAPSULE PO SCH ×2 (09:22→17:00)
[2019-06-26] MEDS: MAGNESIUM OXIDE 400 MG TABLET PO SCH ×2 (09:22→17:00)
[2019-06-26] MEDS: VENLAFAXINE HCL 75 MG CAP.SR.24H PO SCH (09:22)
[2019-06-26] MEDS: NITROFURANTOIN MONOHYD/M-CRYST 100 MG CAPSULE PO SCH ×2 (09:23→17:00)
[2019-06-26] MEDS: FLUTICASONE/UMECLIDIN/VILANTER 100-62.5-25 MCG/DOSE IH SCH (09:23)
[2019-06-26] MEDS: FUROSEMIDE 40 MG TABLET PO SCH (09:23)
[2019-06-26] MEDS: METOPROLOL SUCCINATE 50 MG TAB.SR.24H PO SCH ×2 (09:23→21:22)
[2019-06-26] MEDS: APIXABAN 5 MG TABLET PO SCH ×2 (09:23→17:01)
--- NOTE | 2019-06-26 09:26 | PDOC PROGRESS REPORT ---
Subjective Progress Note for:: 06/26/19 Subjective:: 53 year old female who presented to the emergency room with an acute cough. She admits the sudden development of a severe paroxysmal cough at approximately 5 PM on the day prior to admission. Her cough caused her to have severe pain in her ribs/chest bilaterally. Her cough was accompanied by moderate to severe dyspnea and associated with mild swelling in her hands and feet. She denies other associated or accompanying signs and symptoms. She denies prior similar episodes. She admits exposure to a person who had active influenza 72 to 96 hours prior to her presentation. She has not identified any aggravating or ameliorating factors for her cough. In the emergency room she was found to have an elevated white blood count at 13,900 and a elevated lactic acid of 2.5. She was noted to be tachypneic, tachycardic (A. fib with RVR) and hypoxic on evaluation. She was treated with IV diltiazem using a bolus and continuous infusion for her tachycardia without significant improvement. He was subsequently given IV metoprolol also with a less than desired response. She also received initial antibiotic therapy in the emergency room for a possible pneumonia although no pneumonia was noted on her pulmonary evaluations including a CT scan. A coronavirus screening was administered in the ER. Patient was subsequently admitted to the hospital for further evaluation and treatment. 06/18/19-The patient is short of breath. She feels gurgling breath sounds. She looks quite uncomfortable. 06/20/19-No adverse events overnight. Feels fatigued. Not short of breath at rest but has not tried to get up and walk. No cough. No fevers. Heart rate is in the 80s in the 90s on monitor. 06/22/19-No adverse events overnight. Good urine output yesterday. Breathing feels better. Heart rate is in a good range. 06/23/2019-patient is comfortable in the bed denies any problems. No acute events in the last 24 hours. Pulse ox is 95% 2 L. Flu is negative. Urine culture is positive for Citrobacter on meropenem. For A. fib she is on metoprolol and digoxin. 06/24/2019-comfortably in the bed communicating well. Not in distress. Receiving meropenem IV for Citrobacter in the urine. Plan is to switch the antibiotics to p.o. from today if possible and possible discharge tomorrow. 06/25/2019-no acute events in the last 24 hours. Patient is receiving IV meropenem for Citrobacter in the urine. Afebrile. I called pharmacy to discuss about changing the antibiotics to p.o. version. Pharmacy is going to call me back. Patient agreed to stay until tomorrow waiting for coronavirus test results. 06/26/19-no acute events in the last 24 hours. Patient become hypoxic this morning with oxygen supplementation pulse ox is back to 98%. Denies any chest pains denies any palpitations. Covid testing is still pending. Reason For Visit: PAROXYSMAL AFIB WITH RVR,PAROXYSMAL COUGH,SEVERE Physical Exam Vital Signs: Temp Pulse Resp BP Pulse Ox 98.6 F 60 15 131/46 H 95 06/26/19 07:31 06/26/19 07:31 06/26/19 07:31 06/26/19 07:31 06/26/19 07:31 Intake & Output 06/25/19 06/26/19 06/27/19 06:59 06:59 06:59 Intake Total 1336 1570 Balance 1336 1570 Weight 108.8 kg 104.9 kg General appearance: PRESENT: no acute distress, obese Head exam: PRESENT: atraumatic Eye exam: PRESENT: PERRLA Mouth exam: PRESENT: neck supple Teeth exam: PRESENT: poor dentation Neck exam: ABSENT: carotid bruit, JVD, lymphadenopathy, thyromegaly Respiratory exam: PRESENT: decreased breath sounds Pulses: PRESENT: normal dorsalis pedis pul GI/Abdominal exam: PRESENT: normal bowel sounds, soft. ABSENT: distended, guarding, mass, organolmegaly, rebound, tenderness Rectal exam: PRESENT: deferred Extremities exam: PRESENT: full ROM. ABSENT: calf tenderness, clubbing, pedal edema Neurological exam: PRESENT: alert, awake, oriented to person, oriented to place, oriented to time, oriented to situation, CN II-XII grossly intact. ABSENT: motor sensory deficit Psychiatric exam: PRESENT: appropriate affect, normal mood. ABSENT: homicidal ideation, suicidal ideation Results Laboratory Results: 06/26/19 06:04 06/26/19 06:04 06/26/19 06/26/19 06:04 06:04 WBC 8.8 RBC 4.29 Hgb 13.9 Hct 40.9 MCV 95 MCH 32.3 MCHC 33.9 RDW 13.8 Plt Count 335 Seg Neutrophils % 59.8 Sodium 134.2 L Potassium 4.2 Chloride 96 L Carbon Dioxide 29 Anion Gap 9 BUN 10 Creatinine 0.83 Est GFR ( Amer) > 60 Glucose 137 H Calcium 9.3 Magnesium 1.9 Total Bilirubin 0.7 AST 38 H Alkaline Phosphatase 136 H Total Protein 6.4 Albumin 3.7 06/18/19 06/18/19 06/18/19 21:18 21:18 22:48 Creatine Kinase Cancelled 120 CK-MB (CK-2) 1.61 Troponin I < 0.012 NT-Pro-B Natriuret Pep 06/18/19 06/19/19 06/19/19 22:48 00:35 04:31 Creatine Kinase CK-MB (CK-2) Troponin I < 0.012 < 0.012 NT-Pro-B Natriuret Pep 831 H 06/19/19 06/19/19 06/19/19 08:23 12:30 16:00 Creatine Kinase CK-MB (CK-2) Troponin I < 0.012 < 0.012 < 0.012 NT-Pro-B Natriuret Pep 06/19/19 20:20 Creatine Kinase CK-MB (CK-2) Troponin I < 0.012 NT-Pro-B Natriuret Pep Impressions: Chest X-Ray 06/18/19 21:15 IMPRESSION: Mild patchy basilar opacities are similar in appearance to prior study. Clinical correlation is advised. The possibility of infection is not excluded. Chest/Abdomen CTA 06/18/19 22:09 IMPRESSION: No aortic dissection or aneurysm. No pulmonary embolus. No definite pneumonia. Assessment and Plan - Diagnosis (1) Acute on chronic diastolic heart failure Is this a current diagnosis for this admission?: Yes Plan: She is getting oral Lasix once a day, responding well to fluid restriction. She got a single dose of IV Lasix yesterday and that has removed a lot of the excess fluid. 06/23/2019-on examination patient is euvolemic. Receiving p.o. Lasix 40 mg daily.. 06/24/2019-patient has history of chronic diastolic heart failure not in fluid overload. Plan is to continue Lasix 40 mg p.o. daily. 06/25/2019-patient has history of acute on chronic heart failure, diastolic heart failure plan is to continue Lasix 40 mg p.o. daily.3 06/26/2019-patient is on Lasix 40 mg p.o. daily euvolemic. Patient has history of chronic diastolic heart failure. (2) Acute respiratory failure with hypoxia Is this a current diagnosis for this admission?: Yes Plan: Currently stable on oxygen per nasal cannula, breathing comfortably. She was also on vancomycin but I think that the edema is from heart failure and fluid overload and not from a pneumonia. 06/23/2019-pulse ox is 95% on 2 L. Comfortable in the bed communicating well. On examination bilateral entry was decreased no wheezing no crepitations present. covid testing is pending. Flu is negative. 06/24/2019-ox is 90% on room air this morning. Comfortable in the bed communicating well. On examination chest bilateral entry was decreased no wheezing no crepitations. Coronavirus testing is pending. 06/25/19-pulse ox is 92 % on 1 1/2 lt oxygen .. not in distress 06/26/2019-pulse ox is 98% on 2 L today. Stable. No complaints of shortness of breath no wheezing. covid testing is pending. (3) Atrial fibrillation with RVR Is this a current diagnosis for this admission?: Yes Plan: Rate is controlled with metoprolol and digoxin, appears like it might be a flutter pattern on the monitor, she is anticoagulated 06/23/2019-patient is on a aphixaban for atrial fibrillation and for rate control she is on digoxin and metoprolol. Heart rates in the 90s. In sinus rhythm. 06/24/19-patient has history of chronic atrial fibrillation on apixaban. Heart is controlled and presently on digoxin and metoprolol. The heart rate this morning 72. 06/25/2019-patient has history of chronic atrial fibrillation on apixaban. For rate control she is on digoxin and metoprolol. The heart rate today is 66 in sinus rhythm. 06/26/2019 heart rate today is 60. Patient is on aphixaban. Plan is to continue digoxin and metoprolol. (4) Cystitis Is this a current diagnosis for this admission?: Yes Plan: She is growing a Citrobacter out of the urine. Currently on meropenem, will consider switching to an oral agent at discharge 06/23/2019-urine culture is growing Citrobacter, Streptococcus bovis group, group B streptococcus. Presently on meropenem. Afebrile. Plan is to continue the present management. 06/25/2019-urine culture is positive for Citrobacter on meropenem I spoke to the pharmacy the recommendation is to change the antibiotic Cipro 250 twice daily. 06/26/2019-urine culture is positive for Citrobacter and Cipro floxacillin. Afebrile. Plan is to continue the present management. (5) Diabetes mellitus type 2 in obese Is this a current diagnosis for this admission?: No (6) Morbid obesity with BMI of 40.0-44.9, adult Is this a current diagnosis for this admission?: No - Plan Summary Summary: Patient is admitted in a imcu/telemetry bed where she will receive routine supportive and symptomatic cares. She will be treated with IV fluids and supplemental oxygen via nasal cannula and/or BiPAP if required to maintain a dequate oxygen saturation. She will also receive adequate analgesia for her chest pain using both nonnarcotic and narcotic treatments. A cardiology consultation will be obtained if her atrial fibrillation cannot be controlled with conversion to oral medications. Patient was placed on Rocephin and Zithromax prophylactically/empirically in the emergency room though no obvious source of infection was noted. Serial lactic acids will be obtained. Serial troponin I levels will also be obtained. A hemoglobin A1c, lipid profile and thyroid profile will be obtained. CBCs, metabolic profiles and magnesium levels will be obtained as appropriate. Patient will use morphine sulfate 2 to 4 mg IV every 2 hours as needed for severe pain. An effort will be made to withdraw the patient from the diltiazem infusion as soon as possible. Before meals and at bedtime Accu-Cheks to be obtained with sliding scale insulin available for hyperglycemia and a hypoglycemic protocol in place. Patient be continued on her usual medications as appropriate once her medication list has been verified and reconciled. [employer] consultation will be obtained for dietary evaluation and treatment of her obesity and diabetes.
[2019-06-26] MEDS ORDERED: FLUTICASONE/VILANTEROL 200-25 MCG/DOSE IH SCH (10:00)
[2019-06-26] MEDS ORDERED: GUAIFENESIN 600 MG TABLET.SA PO PRN (10:22)
[2019-06-26] MEDS: AMITRIPTYLINE HCL 50 MG TABLET PO SCH (21:21)
[2019-06-26] MEDS: ZOLPIDEM TARTRATE 5 MG TABLET PO SCH (22:05)
[2019-06-26] MEDS: ALPRAZOLAM 0.5 MG TABLET PO PRN (23:16)
[2019-06-27] MEDS: TIZANIDINE HCL 4 MG TABLET PO SCH ×3 (05:25→22:02)
[2019-06-27] MEDS: PANTOPRAZOLE SODIUM 40 MG TABLET.DR PO SCH (05:25)
[2019-06-27] MEDS: LEVOTHYROXINE SODIUM 0.05 MG TABLET PO SCH (05:25)
[2019-06-27 06:20] LABS: ABSOLUTE BASOPHILS # (AUTO) 0.1 10^3/uL (0.0-0.2); ABSOLUTE EOSINOPHILS # (AUTO) 0.2 10^3/uL (0.0-0.6); ABSOLUTE LYMPHOCYTES (AUTO) 2.8 10^3/uL (0.5-4.7); ABSOLUTE MONOCYTES (AUTO) 0.6 10^3/uL (0.1-1.4); ABSOLUTE NEUT (AUTO) 5.1 10^3/uL (1.7-8.2); BASOPHILS % (AUTO) 0.9 % (0-2); EOSINOPHILS % (AUTO) 2.3 % (0-6); HEMATOCRIT 42.8 % (36.0-47.0); HEMOGLOBIN 14.4 g/dL (12.0-15.5); LYMPHOCYTES % (AUTO) 31.6 % (13-45); MEAN CORPUSCULAR HEMOGLOBIN 32.1 pg (27.0-33.4); MEAN CORPUSCULAR HGB CONC 33.6 g/dL (32.0-36.0); MEAN CORPUSCULAR VOLUME 96 fl (80-97); MONOCYTES % (AUTO) 7.2 % (3-13); PLATELET COUNT 337 10^3/uL (150-450); RED BLOOD COUNT 4.48 10^6/uL (3.72-5.28); RED CELL DISTRIBUTION WIDTH 13.5 % (11.5-14.0); TOTAL CELLS COUNTED % (AUTO) 100 %; WHITE BLOOD COUNT 8.8 10^3/uL (4.0-10.5)
[2019-06-27 06:39] LABS: ALBUMIN 3.9 g/dL (3.5-5.0); ALKALINE PHOSPHATASE 142 U/L (38-126); ANION GAP 9 (5-19); ASPARTATE AMINO TRANSFERASE 41 U/L (14-36); BILIRUBIN,TOTAL 0.9 mg/dL (0.2-1.3); BLOOD UREA NITROGEN 12 mg/dL (7-20); CALCIUM 9.4 mg/dL (8.4-10.2); CARBON DIOXIDE 29 mmol/L (22-30); CHLORIDE 96 mmol/L (98-107); GLUCOSE 142 mg/dL (75-110); POTASSIUM 4.2 mmol/L (3.6-5.0); TOTAL PROTEIN 6.6 g/dL (6.3-8.2)
[2019-06-27] MEDS: DIGOXIN 0.25 MG TABLET PO SCH (09:47)
[2019-06-27] MEDS: GLIPIZIDE XL 5 MG TAB.ER.24 PO SCH (09:50)
[2019-06-27] MEDS: DOCUSATE SODIUM 100 MG CAPSULE PO SCH ×2 (09:51→18:00)
[2019-06-27] MEDS: INSULIN REG, HUMAN 100 UNIT/ML 3 ML VIAL (PYX) SUBCUT SCH ×4 (09:51→21:14)
[2019-06-27] MEDS: FUROSEMIDE 40 MG TABLET PO SCH (09:51)
[2019-06-27] MEDS: APIXABAN 5 MG TABLET PO SCH ×2 (09:52→17:33)
[2019-06-27] MEDS: NITROFURANTOIN MONOHYD/M-CRYST 100 MG CAPSULE PO SCH ×2 (09:52→18:02)
--- NOTE | 2019-06-27 09:54 | PDOC PROGRESS REPORT ---
Subjective Progress Note for:: 06/27/19 Subjective:: 53 year old female who presented to the emergency room with an acute cough. She admits the sudden development of a severe paroxysmal cough at approximately 5 PM on the day prior to admission. Her cough caused her to have severe pain in her ribs/chest bilaterally. Her cough was accompanied by moderate to severe dyspnea and associated with mild swelling in her hands and feet. She denies other associated or accompanying signs and symptoms. She denies prior similar episodes. She admits exposure to a person who had active influenza 72 to 96 hours prior to her presentation. She has not identified any aggravating or ameliorating factors for her cough. In the emergency room she was found to have an elevated white blood count at 13,900 and a elevated lactic acid of 2.5. She was noted to be tachypneic, tachycardic (A. fib with RVR) and hypoxic on evaluation. She was treated with IV diltiazem using a bolus and continuous infusion for her tachycardia without significant improvement. He was subsequently given IV metoprolol also with a less than desired response. She also received initial antibiotic therapy in the emergency room for a possible pneumonia although no pneumonia was noted on her pulmonary evaluations including a CT scan. A coronavirus screening was administered in the ER. Patient was subsequently admitted to the hospital for further evaluation and treatment. 06/18/19-The patient is short of breath. She feels gurgling breath sounds. She looks quite uncomfortable. 06/20/19-No adverse events overnight. Feels fatigued. Not short of breath at rest but has not tried to get up and walk. No cough. No fevers. Heart rate is in the 80s in the 90s on monitor. 06/22/19-No adverse events overnight. Good urine output yesterday. Breathing feels better. Heart rate is in a good range. 06/23/2019-patient is comfortable in the bed denies any problems. No acute events in the last 24 hours. Pulse ox is 95% 2 L. Flu is negative. Urine culture is positive for Citrobacter on meropenem. For A. fib she is on metoprolol and digoxin. 06/24/2019-comfortably in the bed communicating well. Not in distress. Receiving meropenem IV for Citrobacter in the urine. Plan is to switch the antibiotics to p.o. from today if possible and possible discharge tomorrow. 06/25/2019-no acute events in the last 24 hours. Patient is receiving IV meropenem for Citrobacter in the urine. Afebrile. I called pharmacy to discuss about changing the antibiotics to p.o. version. Pharmacy is going to call me back. Patient agreed to stay until tomorrow waiting for coronavirus test results. 06/26/19-no acute events in the last 24 hours. Patient become hypoxic this morning with oxygen supplementation pulse ox is back to 98%. Denies any chest pains denies any palpitations. Covid testing is still pending. 06/27/2019-rhinovirus test is still pending. Hopefully we get the report today. No acute events in the last 24 hours. Afebrile. Plan is to continue the present management. Reason For Visit: PAROXYSMAL AFIB WITH RVR,PAROXYSMAL COUGH,SEVERE Physical Exam Vital Signs: Temp Pulse Resp BP Pulse Ox 98.6 F 59 L 15 125/55 L 90 L 06/27/19 07:41 06/27/19 07:41 06/27/19 07:41 06/27/19 07:41 06/27/19 07:41 Intake & Output 06/26/19 06/27/19 06/28/19 06:59 06:59 06:59 Intake Total 1570 1030 Output Total 1450 Balance 1570 -420 Weight 104.9 kg 109.1 kg General appearance: PRESENT: no acute distress, obese Head exam: PRESENT: atraumatic Eye exam: PRESENT: PERRLA Mouth exam: PRESENT: neck supple Teeth exam: PRESENT: poor dentation Neck exam: ABSENT: carotid bruit, JVD, lymphadenopathy, thyromegaly Respiratory exam: PRESENT: decreased breath sounds Cardiovascular exam: PRESENT: RRR. ABSENT: diastolic murmur, rubs, systolic murmur Vascular exam: PRESENT: normal capillary refill GI/Abdominal exam: PRESENT: normal bowel sounds, soft. ABSENT: distended, guarding, mass, organolmegaly, rebound, tenderness Rectal exam: PRESENT: deferred Extremities exam: PRESENT: full ROM. ABSENT: calf tenderness, clubbing, pedal edema Neurological exam: PRESENT: alert, awake, oriented to person, oriented to place, oriented to time, oriented to situation, CN II-XII grossly intact. ABSENT: motor sensory deficit Psychiatric exam: PRESENT: appropriate affect, normal mood. ABSENT: homicidal ideation, suicidal ideation Results Laboratory Results: 06/27/19 06:00 06/27/19 06:00 06/27/19 06/27/19 06:00 06:00 WBC 8.8 RBC 4.48 Hgb 14.4 Hct 42.8 MCV 96 MCH 32.1 MCHC 33.6 RDW 13.5 Plt Count 337 Seg Neutrophils % 58.0 Sodium 133.7 L Potassium 4.2 Chloride 96 L Carbon Dioxide 29 Anion Gap 9 BUN 12 Creatinine 0.89 Est GFR ( Amer) > 60 Glucose 142 H Calcium 9.4 Magnesium 2.0 Total Bilirubin 0.9 AST 41 H Alkaline Phosphatase 142 H Total Protein 6.6 Albumin 3.9 06/18/19 06/18/19 06/18/19 21:18 21:18 22:48 Creatine Kinase Cancelled 120 CK-MB (CK-2) 1.61 Troponin I < 0.012 NT-Pro-B Natriuret Pep 06/18/19 06/19/19 06/19/19 22:48 00:35 04:31 Creatine Kinase CK-MB (CK-2) Troponin I < 0.012 < 0.012 NT-Pro-B Natriuret Pep 831 H 06/19/19 06/19/19 06/19/19 08:23 12:30 16:00 Creatine Kinase CK-MB (CK-2) Troponin I < 0.012 < 0.012 < 0.012 NT-Pro-B Natriuret Pep 06/19/19 20:20 Creatine Kinase CK-MB (CK-2) Troponin I < 0.012 NT-Pro-B Natriuret Pep Impressions: Chest X-Ray 06/18/19 21:15 IMPRESSION: Mild patchy basilar opacities are similar in appearance to prior study. Clinical correlation is advised. The possibility of infection is not excluded. Chest/Abdomen CTA 06/18/19 22:09 IMPRESSION: No aortic dissection or aneurysm. No pulmonary embolus. No definite pneumonia. Assessment and Plan - Diagnosis (1) Acute on chronic diastolic heart failure Is this a current diagnosis for this admission?: Yes Plan: She is getting oral Lasix once a day, responding well to fluid restriction. She got a single dose of IV Lasix yesterday and that has removed a lot of the excess fluid. 06/23/2019-on examination patient is euvolemic. Receiving p.o. Lasix 40 mg daily.. 06/24/2019-patient has history of chronic diastolic heart failure not in fluid overload. Plan is to continue Lasix 40 mg p.o. daily. 06/25/2019-patient has history of acute on chronic heart failure, diastolic heart failure plan is to continue Lasix 40 mg p.o. daily.3 06/26/2019-patient is on Lasix 40 mg p.o. daily euvolemic. Patient has history of chronic diastolic heart failure. 06/27/2019-plan is to continue Lasix 40 mg p.o. daily. Patient has history of chronic diastolic heart failure. On examination today patient is euvolemic. (2) Acute respiratory failure with hypoxia Is this a current diagnosis for this admission?: Yes Plan: Currently stable on oxygen per nasal cannula, breathing comfortably. She was also on vancomycin but I think that the edema is from heart failure and fluid overload and not from a pneumonia. 06/23/2019-pulse ox is 95% on 2 L. Comfortable in the bed communicating well. On examination bilateral entry was decreased no wheezing no crepitations present. covid testing is pending. Flu is negative. 06/24/2019-ox is 90% on room air this morning. Comfortable in the bed communicating well. On examination chest bilateral entry was decreased no wheezing no crepitations. Coronavirus testing is pending. 06/25/19-pulse ox is 92 % on 1 1/2 lt oxygen .. not in distress 06/26/2019-pulse ox is 98% on 2 L today. Stable. No complaints of shortness of breath no wheezing. covid testing is pending. 06/27/2019-covid test done 06/17/2019-waiting for the report. Pulse ox today's 94% on room air. Acute respiratory failure with hypoxia resolved. (3) Atrial fibrillation with RVR Is this a current diagnosis for this admission?: Yes Plan: Rate is controlled with metoprolol and digoxin, appears like it might be a flutter pattern on the monitor, she is anticoagulated 06/23/2019-patient is on a aphixaban for atrial fibrillation and for rate control she is on digoxin and metoprolol. Heart rates in the 90s. In sinus rhythm. 06/24/19-patient has history of chronic atrial fibrillation on apixaban. Heart is controlled and presently on digoxin and metoprolol. The heart rate this morning 72. 06/25/2019-patient has history of chronic atrial fibrillation on apixaban. For rate control she is on digoxin and metoprolol. The heart rate today is 66 in sinus rhythm. 06/26/2019 heart rate today is 60. Patient is on aphixaban. Plan is to continue digoxin and metoprolol. (4) Cystitis Is this a current diagnosis for this admission?: Yes Plan: She is growing a Citrobacter out of the urine. Currently on meropenem, will consider switching to an oral agent at discharge 06/23/2019-urine culture is growing Citrobacter, Streptococcus bovis group, group B streptococcus. Presently on meropenem. Afebrile. Plan is to continue the present management. 06/25/2019-urine culture is positive for Citrobacter on meropenem I spoke to the pharmacy the recommendation is to change the antibiotic Cipro 250 twice daily. 06/26/2019-urine culture is positive for Citrobacter and Ciprofloxacillin. Afe brile. Plan is to continue the present management. 06/27/2019-urine culture is positive for Citrobacter on Cipro floxacillin afebrile. Plan is to continue the antibiotic therapy. (5) Diabetes mellitus type 2 in obese Is this a current diagnosis for this admission?: No Plan: We will continue a consistent carbohydrate diet and insulin sliding scale 06/23/2019-latest blood sugar is 143. hemoGlobin A1c is 11.3. Diet exercise we ight loss lifestyle modifications discussed with the patient. 06/24/2019-blood sugar today 141. Stable. Plan is to continue insulin sliding scale. (6) Morbid obesity with BMI of 40.0-44.9, adult Is this a current diagnosis for this admission?: No - Plan Summary Summary: Patient is admitted in a imcu/telemetry bed where she will receive routine supportive and symptomatic cares. She will be treated with IV fluids and supplemental oxygen via nasal cannula and/or BiPAP if required to maintain adequate oxygen saturation. She will also receive adequate analgesia for her chest pain using both nonnarcotic and narcotic treatments. A cardiology consultation will be obtained if her atrial fibrillation cannot be controlled with conversion to oral medications. Patient was placed on Rocephin and Zithromax prophylactically/empirically in the emergency room though no obvious source of infection was noted. Serial lactic acids will be obtained. Serial troponin I levels will also be obtained. A hemoglobin A1c, lipid profile and thyroid profile will be obtained. CBCs, metabolic profiles and magnesium levels will be obtained as appropriate. Patient will use morphine sulfate 2 to 4 mg IV every 2 hours as needed for severe pain. An effort will be made to withdraw the patient from the diltiazem infusion as soon as possible. Before meals and at bedtime Accu-Cheks to be obtained with sliding scale insulin available for hyperglycemia and a hypoglycemic protocol in place. Patient be continued on her usual medications as appropriate once her medication list has been verified and reconciled. [employer] consultation will be obtained for dietary evaluation and treatment of her obesity and diabetes.
[2019-06-27] MEDS: MAGNESIUM OXIDE 400 MG TABLET PO SCH ×2 (09:56→17:33)
[2019-06-27] MEDS: METOPROLOL SUCCINATE 50 MG TAB.SR.24H PO SCH ×2 (09:56→22:03)
[2019-06-27] MEDS: VENLAFAXINE HCL 75 MG CAP.SR.24H PO SCH (09:57)
[2019-06-27] MEDS: SITAGLIPTIN PHOSPHATE 50 MG TABLET PO SCH (09:57)
[2019-06-27] MEDS: TOLTERODINE TARTRATE 1 MG TABLET PO SCH ×2 (09:59→22:02)
[2019-06-27] MEDS: FLUTICASONE/UMECLIDIN/VILANTER 100-62.5-25 MCG/DOSE IH SCH (13:22)
[2019-06-27] MEDS: ALPRAZOLAM 0.5 MG TABLET PO PRN (22:02)
[2019-06-27] MEDS: ZOLPIDEM TARTRATE 5 MG TABLET PO SCH (22:03)
[2019-06-27] MEDS: AMITRIPTYLINE HCL 50 MG TABLET PO SCH (22:03)
[2019-06-28] MEDS: LEVOTHYROXINE SODIUM 0.05 MG TABLET PO SCH (06:21)
[2019-06-28] MEDS: TIZANIDINE HCL 4 MG TABLET PO SCH (06:21)
[2019-06-28] MEDS: PANTOPRAZOLE SODIUM 40 MG TABLET.DR PO SCH (06:21)
[2019-06-28] MEDS: DOCUSATE SODIUM 100 MG CAPSULE PO SCH (09:00)
[2019-06-28] MEDS: INSULIN REG, HUMAN 100 UNIT/ML 3 ML VIAL (PYX) SUBCUT SCH ×2 (09:00→11:56)
[2019-06-28] MEDS: GLIPIZIDE XL 5 MG TAB.ER.24 PO SCH (09:09)
[2019-06-28] MEDS: VENLAFAXINE HCL 75 MG CAP.SR.24H PO SCH (09:10)
[2019-06-28] MEDS: NITROFURANTOIN MONOHYD/M-CRYST 100 MG CAPSULE PO SCH (09:10)
[2019-06-28] MEDS: MAGNESIUM OXIDE 400 MG TABLET PO SCH (09:10)
[2019-06-28] MEDS: SITAGLIPTIN PHOSPHATE 50 MG TABLET PO SCH (09:10)
[2019-06-28] MEDS: DIGOXIN 0.25 MG TABLET PO SCH (09:10)
[2019-06-28] MEDS: FUROSEMIDE 40 MG TABLET PO SCH (09:10)
[2019-06-28] MEDS: APIXABAN 5 MG TABLET PO SCH (09:10)
[2019-06-28] MEDS: TOLTERODINE TARTRATE 1 MG TABLET PO SCH (09:10)
[2019-06-28] MEDS: METOPROLOL SUCCINATE 50 MG TAB.SR.24H PO SCH (09:10)
[2019-06-28] MEDS: FLUTICASONE/UMECLIDIN/VILANTER 100-62.5-25 MCG/DOSE IH SCH (11:26)
--- NOTE | 2019-06-28 12:19 | PDOC DISCHARGE SUMMARY ---
Impression - Admit/DC Date/PCP Admission Date/Primary Care Provider: 06/19/19 02:20 RENALDO DAMON DO Discharge Date: 06/28/19 - Discharge Diagnosis (1) Acute respiratory failure with hypoxia Is this a current diagnosis for this admission?: Yes (2) Acute on chronic diastolic heart failure Is this a current diagnosis for this admission?: Yes (3) Atrial fibrillation with RVR Is this a current diagnosis for this admission?: Yes (4) Cystitis Is this a current diagnosis for this admission?: Yes (5) Diabetes mellitus type 2 in obese Is this a current diagnosis for this admission?: No (6) Morbid obesity with BMI of 40.0-44.9, adult Is this a current diagnosis for this admission?: No (7) Pleuritic chest pain Is this a current diagnosis for this admission?: Yes (8) Hypothyroidism Is this a current diagnosis for this admission?: Yes - Additional Information Resuscitation Status: Full Code Discharge Diet: Cardiac, Diabetic Discharge Activity: Activity As Tolerated, Balance Activity w/Rest, Weigh Daily Referrals: [facility] [Outside] (PATIENT TO BE FOLLOWED BY HEALTH DEPT. ON SELF QUARANTINE AT HOME. ONCE THE HEALTH DEPT. RELEASES PATIENT THEN PATIENT MAY SCHEDULE A FOLLOW UP APPT. WITH PCP.) RENALDO DAMON DO [Primary Care Provider] - Prescriptions: Furosemide [Lasix 40 mg Tablet] 40 mg PO DAILY #30 tablet Magnesium Oxide [Mag-Ox 400 mg Tablet] 400 mg PO DAILY 15 Days tablet Levothyroxine Sodium [Synthroid 0.15 mg Tablet] 0.15 mg PO DAILY #30 tablet Metoprolol Succinate [Toprol Xl 25 mg Tab.sr] 50 mg PO Q12 30 Days Home Medications: Alprazolam [Xanax] 1 mg PO TIDP PRN MDD 4 MG 03/18/17 Amitriptyline HCl [Elavil 25 mg Tablet] 50 mg PO QHS 03/18/17 Apixaban [Eliquis 5 mg Tablet] 5 mg PO Q12 03/18/17 Zolpidem Tartrate [Ambien] 10 mg PO QHS 03/18/17 Brexpiprazole [Rexulti] 2 mg PO QHS 02/12/18 Desvenlafaxine [Desvenlafaxine ER] 50 mg PO DAILY 02/12/18 Solifenacin Succinate [Vesicare] 5 mg PO DAILY 02/12/18 Fluticasone Propionate [Flovent Hfa] 1 puff IH Q12 06/19/19 Fluticasone/Salmeterol [Advair 250-50 Diskus 14 Dose/Diskus] 1 inh IH Q12 06/19/19 Glipizide [Glipizide Xl] 10 mg PO [id number] 06/19/19 Oxycodone HCl/Acetaminophen [Percocet 5-325 mg Tablet] 1 tab PO Q8HP PRN 06/19/19 Prazosin HCl [Minipress] 2 mg PO QHS 06/19/19 Sitagliptin Phosphate [Januvia 50 mg Tablet] 100 mg PO DAILY 06/19/19 Tizanidine HCl 4 mg PO Q8 06/19/19 Furosemide [Lasix 40 mg Tablet] 40 mg PO DAILY #30 tablet 06/28/19 Levothyroxine Sodium [Synthroid 0.15 mg Tablet] 0.15 mg PO DAILY #30 tablet 06/28/19 Magnesium Oxide [Mag-Ox 400 mg Tablet] 400 mg PO DAILY 15 Days tablet 06/28/19 Metoprolol Succinate [Toprol Xl 25 mg Tab.sr] 50 mg PO Q12 30 Days 06/28/19 History of Present Illiness History of Present Illness: SHOSHANA BOWMAN is a 53 year old female who presented to the emergency room with an acute cough. She admits the sudden development of a severe paroxysmal cough at approximately 5 PM on the day prior to admission. Her cough caused her to have severe pain in her ribs/chest bilaterally. Her cough was accompanied by moderate to severe dyspnea and associated with mild swelling in her hands and feet. She denies other associated or accompanying signs and symptoms. She denies prior similar episodes. She admits exposure to a person who had active influenza 72 to 96 hours prior to her presentation. She has not identified any aggravating or ameliorating factors for her cough. In the emergency room she was found to have an elevated white blood count at 13,900 and a elevated lactic acid of 2.5. She was noted to be tachypneic, tachycardic (A. fib with RVR) and hypoxic on evaluation. She was treated with IV diltiazem using a bolus and continuous infusion for her tachycardia without significant improvement. He was subsequently given IV metoprolol also with a less than desired response. She also received initial antibiotic therapy in the emergency room for a possible pneumonia although no pneumonia was noted on her pulmonary evaluations including a CT scan. A coronavirus screening was administered in the ER. Patient was subsequently admitted to the hospital for further evaluation and treatment. Hospital Course Hospital Course: Patient was admitted for acute hypoxic respiratory failure requiring 6 L nasal cannula. BNP on admission was 831. CTA of the chest was done which showed no PE, no dissection, no definite pneumonia. Patient was suspected to be having acute on chronic diastolic heart failure and was started on IV diuretics. Patient was also noted to have paroxysmal atrial fibrillation with rapid ventricular response. She was started on treatment with beta-cesar. Her Top rol-XL dose was increased. Patient's hypoxia improved and was gradually able to be weaned off all oxygen and has been tolerating with SPO2 in the low 90s to mid 90s on room air. Of note, given patient's respiratory symptoms and hypoxic respiratory failure, patient was tested for COVID-19 on admission. Unfortunately, at the time of discharge today, the results of this test are still pending. Patient has been advised to self isolate at home and that she will be contacted by Department of Health for the results of her coronavirus test. Patient has been stable for the past few days from a respiratory standpoint and is safe for discharge at this time. Patient is being discharged on Lasix and an increased dose of Toprol-XL. Of note thyroid function studies revealed patient is hypothyroid but patient is not on thyroid replacement therapy. As a result I have started patient on Synthroid 0.15 mg daily given her weight and recommended repeat thyroid function test in 4 to 6 weeks. Also c ompleted antibiotic treatment for urinary tract infection/acute cystitis. Physical Exam Vital Signs: Temp Pulse Resp BP Pulse Ox 97.3 F 61 21 H 111/47 L 91 L 06/28/19 03:17 06/28/19 07:00 06/28/19 03:17 06/28/19 03:17 06/28/19 03:17 Intake & Output 06/27/19 06/28/19 06/29/19 06:59 06:59 06:59 Intake Total 1030 600 Output Total 1450 1100 Balance -420 -500 Weight 109.1 kg 106.6 kg General appearance: PRESENT: no acute distress, cooperative, morbidly obese. ABSENT: mild distress, severe distress Neck exam: ABSENT: JVD Respiratory exam: PRESENT: clear to auscultation denis, symmetrical, unlabored. ABSENT: accessory muscle use, chest wall tenderness, decreased breath sounds, retraction, stridor Neurological exam: PRESENT: alert, awake, oriented to person, oriented to place, oriented to time Results Laboratory Results: WBC 8.8 10^3/uL (4.0-10.5) 06/27/19 06:00 RBC 4.48 10^6/uL (3.72-5.28) 06/27/19 06:00 Hgb 14.4 g/dL (12.0-15.5) 06/27/19 06:00 Hct 42.8 % (36.0-47.0) 06/27/19 06:00 MCV 96 fl (80-97) 06/27/19 06:00 MCH 32.1 pg (27.0-33.4) 06/27/19 06:00 MCHC 33.6 g/dL (32.0-36.0) 06/27/19 06:00 RDW 13.5 % (11.5-14.0) 06/27/19 06:00 Plt Count 337 10^3/uL (150-450) 06/27/19 06:00 Lymph % (Auto) 31.6 % (13-45) 06/27/19 06:00 [place] % (Auto) 7.2 % (3-13) 06/27/19 06:00 Eos % (Auto) 2.3 % (0-6) 06/27/19 06:00 Baso % (Auto) 0.9 % (0-2) 06/27/19 06:00 Absolute Neuts (auto) 5.1 10^3/uL (1.7-8.2) 06/27/19 06:00 Absolute Lymphs (auto) 2.8 10^3/uL (0.5-4.7) 06/27/19 06:00 Absolute Monos (auto) 0.6 10^3/uL (0.1-1.4) 06/27/19 06:00 Absolute Eos (auto) 0.2 10^3/uL (0.0-0.6) 06/27/19 06:00 Absolute Basos (auto) 0.1 10^3/uL (0.0-0.2) 06/27/19 06:00 Seg Neutrophils % 58.0 % (42-78) 06/27/19 06:00 PT 13.1 SEC (11.4-15.4) 06/18/19 21:18 PT Cancelled 06/18/19 21:18 INR 0.99 06/18/19 21:18 INR Cancelled 06/18/19 21:18 INR (Anticoag Therapy) Cancelled 06/18/19 21:18 APTT 28.2 SEC (23.5-35.8) 06/18/19 21:18 VBG pH 7.31 (7.30-7.42) 06/18/19 23:25 VBG pCO2 50.0 mmHg (35-63) 06/18/19 23:25 VBG HCO3 24.5 mmol/L (20-32) 06/18/19 23:25 VBG Base Excess -2.3 mmol/L 06/18/19 23:25 Sodium 133.7 mmol/L (137-145) L 06/27/19 06:00 Potassium 4.2 mmol/L (3.6-5.0) 06/27/19 06:00 Chloride 96 mmol/L (98-107) L 06/27/19 06:00 Carbon Dioxide 29 mmol/L (22-30) 06/27/19 06:00 Anion Gap 9 (5-19) 06/27/19 06:00 BUN 12 mg/dL (7-20) 06/27/19 06:00 Creatinine 0.89 mg/dL (0.52-1.25) 06/27/19 06:00 Est GFR ( Amer) > 60 (>60) 06/27/19 06:00 Est GFR (Non-Af Amer) Cancelled 06/20/19 05:40 Est GFR (MDRD) Non-Af > 60 (>60) 06/27/19 06:00 Glucose 142 mg/dL (75-110) H 06/27/19 06:00 POC Glucose 236 mg/dL (70-110) H 06/28/19 11:28 Hemoglobin A1c % 11.3 % (4.7-6.0) H 06/19/19 04:31 Lactic Acid 1.6 mmol/L (0.7-2.1) 06/19/19 12:30 Calcium 9.4 mg/dL (8.4-10.2) 06/27/19 06:00 Magnesium 2.0 mg/dL (1.6-2.3) 06/27/19 06:00 Total Bilirubin 0.9 mg/dL (0.2-1.3) 06/27/19 06:00 Direct Bilirubin 0.0 mg/dL (0.0-0.4) 06/27/19 06:00 Neonat Total Bilirubin Not Reportable 06/27/19 06:00 Neonat Direct Bilirubin Not Reportable 06/27/19 06:00 Neonat Indirect Bili Not Reportable 06/27/19 06:00 AST 41 U/L (14-36) H 06/27/19 06:00 ALT 26 U/L (<35) 06/27/19 06:00 Alkaline Phosphatase 142 U/L (38-126) H 06/27/19 06:00 Creatine Kinase 120 U/L (30-135) 06/18/19 22:48 CK-MB (CK-2) 1.61 ng/mL (<4.55) 06/18/19 21:18 Troponin I < 0.012 ng/mL 06/19/19 20:20 NT-Pro-B Natriuret Pep 831 pg/mL (<125) H 06/18/19 22:48 Total Protein 6.6 g/dL (6.3-8.2) 06/27/19 06:00 Albumin 3.9 g/dL (3.5-5.0) 06/27/19 06:00 EGFR Cancelled 06/20/19 05:40 TSH 12.20 uIU/mL (0.47-4.68) H 06/20/19 06:45 Free T3 pg/mL 2.68 pg/mL (2.77-5.27) L 06/20/19 06:45 Urine Color YELLOW 06/19/19 01:21 Urine Appearance SLIGHTLY-CLOUDY 06/19/19 01:21 Urine pH 5.0 (5.0-9.0) 06/19/19 01:21 Ur Specific [place] > 1.060 06/19/19 01:21 Urine Protein 100 mg/dL (NEGATIVE) H 06/19/19 01:21 Urine Glucose (UA) 150 mg/dL (NEGATIVE) H 06/19/19 01:21 Urine Ketones NEGATIVE mg/dL (NEGATIVE) 06/19/19 01:21 Urine Blood SMALL (NEGATIVE) H 06/19/19 01:21 Urine Nitrite (Reflex) NEGATIVE (NEGATIVE) 06/19/19 01:21 Urine Bilirubin NEGATIVE (NEGATIVE) 06/19/19 01:21 Urine Urobilinogen NEGATIVE mg/dL (<2.0) 06/19/19 01:21 Leukocyte Esterase Rfl MODERATE (NEGATIVE) H 06/19/19 01:21 Urine RBC (Auto) 34 /HPF 06/19/19 01:21 Urine Bacteria (Auto) TRACE /HPF 06/19/19 01:21 Urine WBC (Reflex) 21 /HPF 06/19/19 01:21 Squamous Epi Cells Auto 28 /HPF 06/19/19 01:21 Urine Mucus (Auto) RARE /LPF 06/19/19 01:21 Urine Ascorbic Acid NEGATIVE (NEGATIVE) 06/19/19 01:21 Time Trough Drawn 0447 06/21/19 04:47 Vancomycin Trough 10.3 ug/mL (5.0-20.0) 06/21/19 04:47 Digoxin 1.33 ng/mL (0.8-2.0) 06/22/19 07:07 COVID-19 Source NASAL WASHING 06/18/19 21:15 Influenza A (Rapid) NEGATIVE (NEGATIVE) 06/18/19 21:15 Influenza B (Rapid) NEGATIVE (NEGATIVE) 06/18/19 21:15 06/18/19 06/18/19 06/19/19 21:18 22:48 00:35 CK-MB (CK-2) 1.61 Troponin I < 0.012 < 0.012 NT-Pro-B Natriuret Pep 831 H 06/19/19 06/19/19 06/19/19 04:31 08:23 12:30 CK-MB (CK-2) Troponin I < 0.012 < 0.012 < 0.012 NT-Pro-B Natriuret Pep 06/19/19 06/19/19 16:00 20:20 CK-MB (CK-2) Troponin I < 0.012 < 0.012 NT-Pro-B Natriuret Pep Impressions: Chest X-Ray 06/18/19 21:15 IMPRESSION: Mild patchy basilar opacities are similar in appearance to prior study. Clinical correlation is advised. The possibility of infection is not excluded. Chest/Abdomen CTA 06/18/19 22:09 IMPRESSION: No aortic dissection or aneurysm. No pulmonary embolus. No definite pneumonia. Plan Time Spent: Greater than 30 Minutes Stroke Is this a Stroke Patient?: No Acute Heart Failure - Is this a Heart Failure Patient?: Yes Documentation of LVEF assessment?: Planned for after discharge LVEF < 40%?: No- if no continue to question #3 3. Anticoagulant therapy for permanect/persistent/paraoxysmal Afib or Aflutter: Yes
[2019-06-28 12:41] VITALS: BP 110/59
== END 2019-06-28 14:00 | disposition home or self-care (01) | DRG 189 ==
LOC: ER 21:09 → EH 06-19 02:20 → 5 06-19 03:13
PROVIDERS: ADMIT Emergency Medicine; ATTEND Internal Medicine
PROC: 5A09557 Assistance with Respiratory Ventilation, Greater than 96 Consecutive Hours, Continuous Positive Airway Pressure (ICD-10-PCS; principal; 2019-06-19)
DX: J96.01 Acute respiratory failure with hypoxia (principal); I50.33 Acute on chronic diastolic (congestive) heart failure; Z68.41 Body mass index [BMI] 40.0-44.9, adult; N30.00 Acute cystitis without hematuria; E78.5 Hyperlipidemia, unspecified; I11.0 Hypertensive heart disease with heart failure; I48.0 Paroxysmal atrial fibrillation; E11.9 Type 2 diabetes mellitus without complications; E66.01 Morbid (severe) obesity due to excess calories; R07.81 Pleurodynia; K21.9 Gastro-esophageal reflux disease without esophagitis; F32.9 Major depressive disorder, single episode, unspecified; F41.1 Generalized anxiety disorder; F25.9 Schizoaffective disorder, unspecified; E03.9 Hypothyroidism, unspecified; B95.1 Streptococcus, group B, as the cause of diseases classified elsewhere; I25.2 Old myocardial infarction; E78.00 Pure hypercholesterolemia, unspecified; Z79.01 Long term (current) use of anticoagulants; Z79.890 Hormone replacement therapy; Z79.899 Other long term (current) drug therapy; Z87.891 Personal history of nicotine dependence; Z83.3 Family history of diabetes mellitus; Z82.3 Family history of stroke; Z80.9 Family history of malignant neoplasm, unspecified; Z88.6 Allergy status to analgesic agent; Z88.0 Allergy status to penicillin; Z88.2 Allergy status to sulfonamides; Z03.818 Encounter for observation for suspected exposure to other biological agents ruled out
CPT/HCPCS: 36415; 71045; 71275; 80048; 80053; 80162; 80202; 81001; 82550; 82553; 82565; 82803; 82962; 83036; 83605; 83735; 83880; 84443; 84481; 84484; 85025; 85610; 85730; 87040; 87070; 87077; 87086; 87088; 87186; 87635; 87804; 93005; 93010; 94660; 96365; 96375; 96376; 99291; 99292; J0456; J1160; J1815; J1940; J2185; J2550; J3370; J3475; J3490; J7030; J7060; J7120; J8499

== ENCOUNTER 2019-08-09 20:25 | Emergency (ER) | payer MEDICAID ==
[2019-08-09] MEDS ORDERED: NORMAL SALINE IV ONE (21:34)
[2019-08-09 22:02] LABS: ABSOLUTE BASOPHILS # (AUTO) 0.2 10^3/uL (0.0-0.2); ABSOLUTE EOSINOPHILS # (AUTO) 0.1 10^3/uL (0.0-0.6); ABSOLUTE LYMPHOCYTES (AUTO) 2.9 10^3/uL (0.5-4.7); ABSOLUTE MONOCYTES (AUTO) 0.6 10^3/uL (0.1-1.4); ABSOLUTE NEUT (AUTO) 10.6 10^3/uL (1.7-8.2); BASOPHILS % (AUTO) 1.1 % (0-2); EOSINOPHILS % (AUTO) 0.4 % (0-6); HEMATOCRIT 43.3 % (36.0-47.0); HEMOGLOBIN 14.5 g/dL (12.0-15.5); LYMPHOCYTES % (AUTO) 20.5 % (13-45); MEAN CORPUSCULAR HEMOGLOBIN 31.9 pg (27.0-33.4); MEAN CORPUSCULAR HGB CONC 33.6 g/dL (32.0-36.0); MEAN CORPUSCULAR VOLUME 95 fl (80-97); MONOCYTES % (AUTO) 4.2 % (3-13); PLATELET COUNT 388 10^3/uL (150-450); RED BLOOD COUNT 4.56 10^6/uL (3.72-5.28); RED CELL DISTRIBUTION WIDTH 13.7 % (11.5-14.0); SEGMENTED NEUTROPHILS % (AUTO) 73.8 % (42-78); TOTAL CELLS COUNTED % (AUTO) 100 %; WHITE BLOOD COUNT 14.3 10^3/uL (4.0-10.5)
[2019-08-09 22:05] LABS: VENOUS BLOOD HCO3 25.4 mmol/L (20-32); VENOUS BLOOD PH 7.42 (7.30-7.42)
[2019-08-09 22:23] LABS: ALKALINE PHOSPHATASE 177 U/L (38-126); ANION GAP 10 (5-19); ASPARTATE AMINO TRANSFERASE 21 U/L (14-36); BILIRUBIN,TOTAL 0.8 mg/dL (0.2-1.3); BLOOD UREA NITROGEN 17 mg/dL (7-20); CALCIUM 9.4 mg/dL (8.4-10.2); CARBON DIOXIDE 26 mmol/L (22-30); CHLORIDE 95 mmol/L (98-107); GLUCOSE 343 mg/dL (75-110); POTASSIUM 4.2 mmol/L (3.6-5.0); TOTAL PROTEIN 6.6 g/dL (6.3-8.2)
[2019-08-09 22:27] LABS: INTERNATIONAL RATION (INR) 1.16; PROTHROMBIN TIME 14.9 SEC (11.4-15.4)
[2019-08-09] MEDS ORDERED: ONDANSETRON HCL INJ/PF 4 MG/2 ML SDV IV ONE (22:33)
--- NOTE | 2019-08-09 22:35 | RADIOLOGY REPORT (SQ) ---
EXAM DESCRIPTION: XR CHEST 1 VIEW COMPLETED DATE/TME: 08/09/2019 21:34 CLINICAL HISTORY: 53 years Female shortness of breath COMPARISON: 06/18/2019. FINDINGS: Cardiac size appears prominent but unchanged. No acute consolidation. No pneumothorax. No pleural fluid. Overlying monitoring devices are present. IMPRESSION: No acute abnormality is identified.
[2019-08-09 22:50] LABS: APPEARANCE,URINE CLEAR; BILIRUBIN,URINE NEGATIVE (NEGATIVE); COLOR,URINE ORANGE; GLUCOSE, URINE 500 mg/dL (NEGATIVE); KETONES,URINE NEGATIVE (NEGATIVE); PROTEIN,URINE NEGATIVE (NEGATIVE); URINE SPECIFIC GRAVITY 1.024
[2019-08-09 22:51] LABS: BACTERIA,URINE TRACE /HPF
[2019-08-09 23:47] VITALS: BP 134/78
[2019-08-10] MEDS ORDERED: LEVOFLOXACIN 750 MG TABLET PO ONE (00:14)
--- NOTE | 2019-08-10 01:16 | ER Document Report ---
ED General - General Chief Complaint: Nausea/Vomiting Stated Complaint: VOMITING Primary Care Provider: RENALDO DAMON DO [Primary Care Provider] - Follow up as needed TRAVEL OUTSIDE OF THE [place] IN LAST 30 DAYS: No - HPI Notes: 53-year-old female history of diabetes, hypertension, A. fib, CHF presents with approximately 3 days of bilateral flank pain and suprapubic discomfort associated with subjective fever, dysuria, frequency, and several episodes of nonbloody nonbilious emesis. Patient denies any INDUSTRIAL HYGIENIST symptoms, measured fever, other abdominal pain other than mild suprapubic discomfort, diarrhea, constipation, melena/bright red blood per rectum, recent antibiotics - Related Data Allergies/Adverse Reactions: tramadol Allergy (Intermediate, Verified 03/13/19 17:06) AMS Penicillins Allergy (Mild, Verified 03/13/19 17:06) rash Sulfa (Sulfonamide Antibiotics) Allergy (Mild, Verified 03/13/19 17:06) rash aspirin Allergy (Verified 03/13/19 17:06) NO ASA Past Medical History - General Information source: Patient - Social History Smoking Status: Former Smoker Family History: CAD, CVA, DM, Hyperlipidemia, Hypertension, Malignancy, Thyroid Disfunction, Other - Asthma Patient has homicidal ideation: No - Past Medical History Cardiac Medical History: Reports: Hx Atrial Fibrillation, Hx Congestive Heart Failure, Hx Hypercholesterolemia, Hx Hypertension Denies: Hx Coronary Artery Disease, Hx DVT, Hx Heart Attack, Hx Pulmonary Embolism Pulmonary Medical History: Reports: Hx Asthma, Hx Bronchitis Denies: Hx COPD, Hx Pneumonia Neurological Medical History: Reports: Hx Migraine. Denies: Hx Cerebrovascular Accident, Hx Seizures Endocrine Medical History: Reports: Hx Diabetes Mellitus Type 2, Hx Hypothyroidism. Denies: Hx Diabetes Mellitus Type 1, Hx Hyperthyroidism Renal/ Medical History: Denies: Hx Peritoneal Dialysis GI Medical History: Reports: Hx Gastritis, Hx Gastroesophageal Reflux Disease. Denies: Hx Cirrhosis, Hx Crohn's Disease, Hx Hepatitis, Hx Ulcerative Colitis Musculoskeletal Medical History: Reports Hx Arthritis, Denies Hx Gout, Reports Hx Musculoskeletal Trauma Skin Medical History: Denies Hx Eczema, Denies Hx Psoriasis Psychiatric Medical History: Reports: Hx Anxiety, Hx Depression, Hx Schizoaffective Disorder, Hx Schizophrenia - schizo affective Infectious Medical History: Denies: Hx Hepatitis Past Surgical History: Reports: Hx Cholecystectomy, Hx Tubal Ligation. Denies: Hx Hysterectomy - Immunizations Immunizations up to date: Yes Hx Diphtheria, Pertussis, Tetanus Vaccination: Yes - 2012 Review of Systems - Review of Systems Notes: REVIEW OF SYSTEMS: CONSTITUTIONAL : +fever, +chills EENT: Denies recent cold/sinus symptoms, denies throat pain CARDIOVASCULAR: Denies chest pain, OSMAR RESPIRATORY: Denies cough, denies shortness of breath. GASTROINTESTINAL: Denies abdominal pain, +nausea/vomiting. GENITOURINARY: Denies difficulty urinating, painful urination. FEMALE GENITOURINARY: Denies abnormal vaginal bleeding, vaginal discharge. MUSCULOSKELETAL: Denies neck pain, back pain. SKIN: Denies rash or skin lesions. HEMATOLOGIC : Denies easy bruising or bleeding. LYMPHATIC: Denies swollen, enlarged glands. NEUROLOGICAL: Denies headache, denies change in gait. PSYCHIATRIC: Denies anxiety or stress or depression. Physical Exam - Vital signs Vitals: Temp 98.7 F 08/09/19 20:25 - Notes Notes: PHYSICAL EXAMINATION: GENERAL: Well-appearing and in no acute distress. HEAD: Atraumatic, normocephalic. EYES: Pupils equal round and appropriate constriction, sclera anicteric, conjunctiva are normal. ENT: nares patent, moist mucous membranes. NECK: Normal range of motion, supple without lymphadenopathy LUNGS: Breath sounds clear to auscultation bilaterally and equal. No wheezes rales or rhonchi. HEART: Regular rate and rhythm without murmurs ABDOMEN: Soft, nontender, no guarding, no masses, +CVAT b/l EXTREMITIES: Normal range of motion, no pitting or edema. No cyanosis. NEUROLOGICAL: Awake, alert, conversing appropriately, moves all extremities spontaneously. PSYCH: Normal mood, normal affect. SKIN: Warm, Dry, normal turgor, no rashes or lesions noted. Course - Re-evaluation Re-evalutation: 08/10/19 01:12 Patient with symptoms consistent with pyelonephritis. No signs symptoms or physical exam findings suggestive of kidney stones or INDUSTRIAL HYGIENIST etiology. Patient with several episodes of vomiting but intermittently tolerating p.o. for many hours. Hyperglycemic with no anion gap, not consistent with DKA or HONK. After Zofran patient tolerating p.o. in ED without any difficulty, feels improved, gave first dose of Levaquin as patient's insurance unlikely to cover secondary third-generation p.o. cephalosporin and concern for patient noncompliance with schedule for penicillin. Patient's lactate borderline likely secondary to mild dehydration from vomiting and hyperglycemia, will discharge if repeat lactate has normalized. Given that patient tolerating p.o., symptoms controlled, samantha goodson appropriate for outpatient treatment trial but gave extensive return to ED precautions which patient demonstrated understanding of. 08/10/19 01:45 Lactate normalized on repeat, hyperglycemia has improved, patient feels improved, patient ready for discharge on p.o. antibiotics with close outpatient PCP follow-up. - Vital Signs Vital signs: Temp Pulse Resp BP Pulse Ox 98.7 F 21 H 134/78 H 95 08/09/19 20:25 08/09/19 22:01 08/09/19 22:00 08/09/19 23:00 - Laboratory Result Diagrams: 08/09/19 21:47 08/09/19 21:47 Laboratory results interpreted by me: 08/09/19 08/09/19 08/09/19 21:18 21:47 21:47 WBC 14.3 H Absolute Neuts (auto) 10.6 H Sodium 131.3 L Chloride 95 L Est GFR (MDRD) Non-Af 55 L Glucose 343 H POC Glucose Alkaline Phosphatase 177 H Urine Glucose (UA) 500 H Urine Blood SMALL H Urine Nitrite (Reflex) POSITIVE H Urine Urobilinogen 4.0 H Leukocyte Esterase Rfl TRACE H 08/10/19 00:55 WBC Absolute Neuts (auto) Sodium Chloride Est GFR (MDRD) Non-Af Glucose POC Glucose 309 H Alkaline Phosphatase Urine Glucose (UA) Urine Blood Urine Nitrite (Reflex) Urine Urobilinogen Leukocyte Esterase Rfl Discharge - Discharge Clinical Impression: Pyelonephritis Type 2 diabetes mellitus Qualifiers: Diabetes mellitus detention insulin use: with detention use Diabetes mellitus complication status: without complication Qualified Code(s): E11.9 - Type 2 diabetes mellitus without complications; Z79.4 - intermediate manager (current) use of insulin Condition: Good Disposition: HOME, SELF-CARE Additional Instructions: Pyelonephritis Your evaluation shows evidence of pyelonephritis. This is an infection in the kidney. Typical symptoms are fever, pain in the flank, pain on urination, and frequent urination. Many cases of pyelonephritis can be treated at home. Hospital care may be necessary for patients who are very ill, or elderly or . Pyelonephritis is treated with antibiotics. Be sure to take all the medication as prescribed. Drink plenty of liquids (about three quarts per day). You may take acetaminophen for fever. You should feel significantly improved w ithin two days. Return for a re-examination if your symptoms worsen in any way -- such as high fever, shaking chills, severe weakness or dizziness, severe pain, or inability to pass your urine. Hyperglycemia (High Blood Sugar) You have an abnormally high blood sugar. Uncontrolled high blood sugar leads to early heart disease, strokes, nerve damage, eye damage, and kidney damage. Call the physician if there is faintness, excess sleepiness, or very rapid breathing. Follow-up with primary doctor within 1 week. Prescriptions: Levofloxacin [Levaquin 750 mg Tablet] 750 mg PO DAILY #4 tablet Referrals: RENALDO DAMON DO [Primary Care Provider] - Follow up as needed
--- NOTE | 2019-08-10 08:39 | EKG REPORT ---
SEVERITY:- ABNORMAL ECG - SINUS RHYTHM LEFT ATRIAL ABNORMALITY NONSPECIFIC T ABNORMALITIES, DIFFUSE LEADS : Confirmed by: Randell Sweeney 10-Aug-2019 08:38:49
== END 2019-08-10 02:39 | disposition home or self-care (01) ==
LOC: ER 20:25
DX: N12 Tubulo-interstitial nephritis, not specified as acute or chronic (principal); R11.2 Nausea with vomiting, unspecified; R10.30 Lower abdominal pain, unspecified; R10.9 Unspecified abdominal pain; R30.0 Dysuria; R35.0 Frequency of micturition; E11.9 Type 2 diabetes mellitus without complications; I48.91 Unspecified atrial fibrillation; I50.9 Heart failure, unspecified; I11.0 Hypertensive heart disease with heart failure; R50.9 Fever, unspecified; Z88.0 Allergy status to penicillin; Z88.2 Allergy status to sulfonamides; Z88.8 Allergy status to other drugs, medicaments and biological substances; Z79.4 Long term (current) use of insulin
CPT/HCPCS: 93005; 99284; 96361; 96374; 36415; 87040; 82962; 83605; 85025; 85610; 80053; 81001; 84484; 82803; 71045; 93010; J2405; J7030; J3490

== ENCOUNTER 2019-08-31 20:25 | Emergency (ER) | payer MEDICAID ==
[2019-08-31] MEDS ORDERED: APIXABAN 5 MG TABLET PO ONE (21:39)
[2019-08-31] MEDS ORDERED: HYDROCODONE/ACETAMINOPHEN 5-325 MG TABLET PO ONE (21:39)
--- NOTE | 2019-08-31 21:41 | ER Document Report ---
ED Medical Screen (RME) - General TRAVEL OUTSIDE OF THE [place] IN LAST 30 DAYS: No - General Chief Complaint: Knee Pain Stated Complaint: RIGHT KNEE PAIN Time Seen by Provider: 08/31/19 21:34 Primary Care Provider: RENALDO DAMON DO [Primary Care Provider] - Follow up as needed Notes: HPI: 54-year-old female who is on Eliquis for atrial fibrillation history presenting with right knee pain in the anterior and posterior knee for 3 days. No trauma. Hurts to walk and move. Patient states she also missed a dose of Eliquis this morning. PHYSICAL EXAMINATION: There is no visible effusion over the anterior right knee. There is tenderness on palpation of the anterior and posterior right knee. No visible bruising. There is tenderness midline through the right calf on palpat ion. I have greeted and performed a rapid initial assessment of this patient. A comprehensive ED assessment and evaluation of the patient, analysis of test results and completion of medical decision making process will be conducted by an additional ED providers. (HECTOR PA) - Related Data Allergies/Adverse Reactions: tramadol Allergy (Intermediate, Verified 03/13/19 17:06) AMS Penicillins Allergy (Mild, Verified 03/13/19 17:06) rash Sulfa (Sulfonamide Antibiotics) Allergy (Mild, Verified 03/13/19 17:06) rash aspirin Allergy (Verified 03/13/19 17:06) NO ASA Past Medical History - Past Medical History Cardiac Medical History: Reports: Hx Atrial Fibrillation, Hx Congestive Heart Failure, Hx Hypercholesterolemia, Hx Hypertension Denies: Hx Coronary Artery Disease, Hx DVT, Hx Heart Attack, Hx Pulmonary Embolism Pulmonary Medical History: Reports: Hx Asthma, Hx Bronchitis Denies: Hx COPD, Hx Pneumonia Neurological Medical History: Reports: Hx Migraine. Denies: Hx Cerebrovascular Accident, Hx Seizures Endocrine Medical History: Reports: Hx Diabetes Mellitus Type 2, Hx Hypothyroidism. Denies: Hx Diabetes Mellitus Type 1, Hx Hyperthyroidism Renal/ Medical History: Denies: Hx Peritoneal Dialysis GI Medical History: Reports: Hx Gastritis, Hx Gastroesophageal Reflux Disease. Denies: Hx Cirrhosis, Hx Crohn's Disease, Hx Hepatitis, Hx Ulcerative Colitis Musculoskeltal Medical History: Reports Hx Arthritis, Denies Hx Gout, Reports Hx Musculoskeletal Trauma Skin Medical History: Denies Hx Eczema, Denies Hx Psoriasis Psychiatric Medical History: Reports: Hx Anxiety, Hx Depression, Hx Schizoaffective Disorder, Hx Schizophrenia - schizo affective Infectious Medical History: Denies: Hx Hepatitis Past Surgical History: Reports: Hx Cholecystectomy, Hx Tubal Ligation. Denies: Hx Hysterectomy - Immunizations Immunizations up to date: Yes Hx Diphtheria, Pertussis, Tetanus Vaccination: Yes - 2012 Physical Exam - Vital signs Vitals: Temp Pulse Resp BP Pulse Ox 98.7 F 109 H 16 129/67 H 94 08/31/19 20:29 08/31/19 20:29 08/31/19 20:29 08/31/19 20:29 08/31/19 20:29 Course - Vital Signs Vital signs: Temp Pulse Resp BP Pulse Ox 98.7 F 109 H 16 129/67 H 94 08/31/19 21:31 08/31/19 20:29 08/31/19 20:29 08/31/19 20:29 08/31/19 20:29 Doctor's Discharge - Discharge Referrals: RENALDO DAMON DO [Primary Care Provider] - Follow up as needed
--- NOTE | 2019-08-31 22:11 | RADIOLOGY REPORT (SQ) ---
EXAM DESCRIPTION: X-rays, four views of the right knee CLINICAL HISTORY: 54 years Female, pain 3 days COMPARISON: None. FINDINGS: Medial joint space compartment narrowing is identified. A small knee effusion is seen. No osteophyte formation. No erosions or periostitis. No fracture. IMPRESSION: Medial joint space compartment narrowing. No fracture.
--- NOTE | 2019-08-31 23:11 | RADIOLOGY REPORT (SQ) ---
INDICATION: right knee/calf pain. PROCEDURE: Real-time grayscale, color, and pulse Doppler ultrasound imaging of the right lower extremity deep venous system was performed. 37 images. COMPARISON: None FINDINGS: The common femoral, superficial femoral, and popliteal veins demonstrate normal compressibility, phasic flow, augmentation and kat scale evaluation. There is no evidence of intraluminal thrombus . The visualized deep calf veins appear patent. IMPRESSION: No evidence for acute deep venous thrombus from the common femoral to the popliteal veins.
--- NOTE | 2019-09-01 00:09 | ER Document Report ---
ED General - General Chief Complaint: Knee Pain Stated Complaint: RIGHT KNEE PAIN Time Seen by Provider: 08/31/19 21:34 Primary Care Provider: RENALDO DAMON DO [Primary Care Provider] - Follow up as needed Mode of Arrival: Ambulatory Information source: Patient Notes: triage notes 08/31/19 21:40 - ED Nursing Note by DOMINGA RODRIGUEZ Accsnow Num: [id number] : 1965 Patient Age: 54 pt w/pain in rt knee for 3 days. denies injury/trauma to area. pt also w/pain in rt calf. cms to foot good. Initialized on 08/31/19 21:40 - END OF NOTE DIGITAL ASSISTANT Michele notes HPI: 54-year-old female who is on Eliquis for atrial fibrillation history presenting with right knee pain in the anterior and posterior knee for 3 days. No trauma. Hurts to walk and move. Patient states she also missed a dose of Eliquis this morning. PHYSICAL EXAMINATION: There is no visible effusion over the anterior right knee. There is tenderness on palpation of the anterior and posterior right knee. No visible bruising. There is tenderness midline through the right calf on palpation. my notes 54-year-old female arrives with 3-day history of right knee pain in both the anterior and posterior knee. Patient reports it hurts to walk and move her right knee. Patient missed her 1 dose of Eliquis this morning. Ultrasound for DVT were negative today and x-ray was positive for no he is got dialysis on a right space narrowing. Patient reports she had a clot in her left brain which caused a problem.. But says she does not have a stroke around 6 months ago. She has weakness of her right knee and is able to use her right hand. She has some problems with speech. She denies any headache at this time. She reports she tried to move her right knee up on the bed and it was quite painful today. TRAVEL OUTSIDE OF THE [place] IN LAST 30 DAYS: No - HPI Onset: This morning Onset/Duration: Sudden, Persistent, Worse Quality of pain: Achy Severity: Moderate Pain Level: 2 Associated symptoms: None Exacerbated by: Movement, Walking Relieved by: Denies Similar symptoms previously: No Recently seen / treated by doctor: No - Related Data Allergies/Adverse Reactions: tramadol Allergy (Intermediate, Verified 03/13/19 17:06) AMS Penicillins Allergy (Mild, Verified 03/13/19 17:06) rash Sulfa (Sulfonamide Antibiotics) Allergy (Mild, Verified 03/13/19 17:06) rash aspirin Allergy (Verified 03/13/19 17:06) NO ASA Home Medications: pt doesn't have list Past Medical History - General Information source: Patient - Social History Smoking Status: Never Smoker Cigarette use (# per day): No Chew tobacco use (# tins/day): No Smoking Education Provided: No Frequency of alcohol use: None Drug Abuse: None Lives with: Family Family History: CAD, CVA, DM, Hyperlipidemia, Hypertension, Malignancy, Thyroid Disfunction, Other - Asthma Patient has homicidal ideation: No - Past Medical History Cardiac Medical History: Reports: Hx Atrial Fibrillation, Hx Congestive Heart Failure, Hx Hypercholesterolemia, Hx Hypertension Denies: Hx Coronary Artery Disease, Hx DVT, Hx Heart Attack, Hx Pulmonary Embolism Pulmonary Medical History: Reports: Hx Asthma, Hx Bronchitis Denies: Hx COPD, Hx Pneumonia Neurological Medical History: Reports: Hx Migraine. Denies: Hx Cerebrovascular Accident, Hx Seizures Endocrine Medical History: Reports: Hx Diabetes Mellitus Type 2, Hx Hypothyroidism. Denies: Hx Diabetes Mellitus Type 1, Hx Hyperthyroidism Renal/ Medical History: Denies: Hx Peritoneal Dialysis GI Medical History: Reports: Hx Gastritis, Hx Gastroesophageal Reflux Disease. Denies: Hx Cirrhosis, Hx Crohn's Disease, Hx Hepatitis, Hx Ulcerative Colitis Musculoskeletal Medical History: Reports Hx Arthritis, Denies Hx Gout, Reports Hx Musculoskeletal Trauma Skin Medical History: Denies Hx Eczema, Denies Hx Psoriasis Psychiatric Medical History: Reports: Hx Anxiety, Hx Depression, Hx Schizoaffective Disorder, Hx Schizophrenia - schizo affective Infectious Medical History: Denies: Hx Hepatitis Past Surgical History: Reports: Hx Cholecystectomy, Hx Tubal Ligation. Denies: Hx Hysterectomy - Immunizations Immunizations up to date: Yes Hx Diphtheria, Pertussis, Tetanus Vaccination: Yes - 2012 Review of Systems - Review of Systems Constitutional: No symptoms reported EENT: No symptoms reported Cardiovascular: No symptoms reported Respiratory: No symptoms reported Gastrointestinal: No symptoms reported Genitourinary: No symptoms reported Female Genitourinary: No symptoms reported Musculoskeletal: See HPI, Joint pain - right knee only, Joint swelling, Muscle stiffness Skin: No symptoms reported Hematologic/Lymphatic: No symptoms reported Neurological/Psychological: No symptoms reported Physical Exam - Vital signs Vitals: Temp Pulse Resp BP Pulse Ox 98.7 F 109 H 16 129/67 H 94 08/31/19 20:29 08/31/19 20:29 08/31/19 20:29 08/31/19 20:29 08/31/19 20:29 Interpretation: Tachycardic - General General appearance: Alert - HEENT Head: Normocephalic, Atraumatic Eyes: Normal Pupils: PERRL - Respiratory Respiratory status: No respiratory distress Chest status: Nontender Breath sounds: Normal Chest palpation: Normal - Cardiovascular Rhythm: Regular Heart sounds: Normal auscultation Murmur: No - Abdominal Inspection: Normal Distension: No distension Bowel sounds: Normal Tenderness: Nontender Organomegaly: No organomegaly - Rectal Hemorrhoids: Other - deferred - Genitourinary Speculum exam: Other - deferred - Back Back: Normal - Extremities General upper extremity: Normal inspection General lower extremity: Tender - right knee - Neurological Neuro grossly intact: Yes Cognition: Normal Orientation: AAOx4 Becca Coma Scale Eye Opening: Spontaneous Forsyth Coma Scale Verbal: Oriented Forsyth Coma Scale Motor: Obeys Commands Becca Coma Scale Total: 15 Speech: Normal Motor strength normal: LUE, LLE. No: RUE - RLE with pain on rom right knee;pos edema no cellulitis pos dp pulses denis, RLE Sensory: Normal - Psychological Associated symptoms: Normal affect - Skin Skin Temperature: Warm Skin Moisture: Dry Course - Vital Signs Vital signs: Temp Pulse Resp BP Pulse Ox 98.7 F 109 H 16 129/67 H 94 08/31/19 21:31 08/31/19 20:29 08/31/19 20:29 08/31/19 20:29 08/31/19 20:29 - Laboratory Result Diagrams: 09/01/19 00:05 09/01/19 00:05 - Diagnostic Test Radiology reviewed: Reports reviewed Critical Care Note - Critical Care Note Total time excluding time spent on procedures (mins): 90 Discharge - Discharge Clinical Impression: Knee pain, right Qualifiers: Chronicity: acute Qualified Code(s): M25.561 - Pain in right knee Condition: Good Disposition: HOME, SELF-CARE Additional Instructions: Follow-up with orthopedics Dr. Amrik Hernandez. Call his office tomorrow take medicines as directed encourage fluids Prescriptions: Dexamethasone [Decadron 4 Mg Tablet] 4 mg PO DAILY #3 tablet Lidocaine [Lidoderm 5% (700 mg) Transdermal Patch] 1 patch TP DAILY #30 adh..patch Referrals: RENALDO DAMON DO [Primary Care Provider] - Follow up as needed
[2019-09-01] MEDS ORDERED: APIXABAN 5 MG TABLET PO ONE (00:30)
[2019-09-01] MEDS ORDERED: HYDROCODONE/ACETAMINOPHEN 5-325 MG TABLET PO ONE (00:30)
[2019-09-01 00:36] LABS: ABSOLUTE BASOPHILS # (AUTO) 0.1 10^3/uL (0.0-0.2); ABSOLUTE EOSINOPHILS # (AUTO) 0.2 10^3/uL (0.0-0.6); ABSOLUTE LYMPHOCYTES (AUTO) 3.3 10^3/uL (0.5-4.7); ABSOLUTE MONOCYTES (AUTO) 0.5 10^3/uL (0.1-1.4); BASOPHILS % (AUTO) 1.2 % (0-2); EOSINOPHILS % (AUTO) 1.9 % (0-6); HEMATOCRIT 41.9 % (36.0-47.0); HEMOGLOBIN 13.6 g/dL (12.0-15.5); LYMPHOCYTES % (AUTO) 29.3 % (13-45); MEAN CORPUSCULAR HEMOGLOBIN 30.8 pg (27.0-33.4); MEAN CORPUSCULAR HGB CONC 32.4 g/dL (32.0-36.0); MEAN CORPUSCULAR VOLUME 95 fl (80-97); MONOCYTES % (AUTO) 4.3 % (3-13); PLATELET COUNT 371 10^3/uL (150-450); RED BLOOD COUNT 4.41 10^6/uL (3.72-5.28); RED CELL DISTRIBUTION WIDTH 14.4 % (11.5-14.0); SEGMENTED NEUTROPHILS % (AUTO) 63.3 % (42-78); TOTAL CELLS COUNTED % (AUTO) 100 %; WHITE BLOOD COUNT 11.1 10^3/uL (4.0-10.5)
[2019-09-01] MEDS ORDERED: HYDROCODONE/ACETAMINOPHEN 5-325 MG (6 TAB/ER DISP) PO PRN (00:40)
[2019-09-01 00:51] LABS: ALKALINE PHOSPHATASE 186 U/L (38-126); ANION GAP 11 (5-19); ASPARTATE AMINO TRANSFERASE 18 U/L (14-36); BILIRUBIN,TOTAL 0.3 mg/dL (0.2-1.3); BLOOD UREA NITROGEN 15 mg/dL (7-20); CALCIUM 9.5 mg/dL (8.4-10.2); CARBON DIOXIDE 25 mmol/L (22-30); CHLORIDE 96 mmol/L (98-107); GLUCOSE 324 mg/dL (75-110); POTASSIUM 4.5 mmol/L (3.6-5.0); TOTAL PROTEIN 6.7 g/dL (6.3-8.2)
[2019-09-01 02:09] VITALS: BP 126/88
== END 2019-09-01 00:50 | disposition home or self-care (01) ==
LOC: ER 20:25
DX: M25.561 Pain in right knee (principal); I48.91 Unspecified atrial fibrillation; I50.9 Heart failure, unspecified; I11.0 Hypertensive heart disease with heart failure; E78.00 Pure hypercholesterolemia, unspecified; E11.9 Type 2 diabetes mellitus without complications; Z90.49 Acquired absence of other specified parts of digestive tract; Z98.51 Tubal ligation status; Z88.0 Allergy status to penicillin; Z88.6 Allergy status to analgesic agent; Z79.02 Long term (current) use of antithrombotics/antiplatelets
CPT/HCPCS: 36415; 80053; 85025; 93971; 99285

== ENCOUNTER 2019-09-15 21:14 | Emergency (ER) | payer MEDICAID ==
[2019-09-15 21:24] VITALS: BP 143/72
[2019-09-15] MEDS ORDERED: ACETAMINOPHEN 325 MG TABLET PO ONE (22:29)
--- NOTE | 2019-09-15 22:29 | ER Document Report ---
ED Medical Screen (RME) - General Chief Complaint: Skin Problem Stated Complaint: SKIN GROWTHS Time Seen by Provider: 09/15/19 22:23 Primary Care Provider: RNEALDO DAMON DO [Primary Care Provider] - Follow up as needed Mode of Arrival: Ambulatory Information source: Patient Notes: HPI; 54-year-old female presents to the emergency room with multiple lesions noted today. States she has one on her left wrist, left axillary region and vaginal area. Unsure how long she is on the ones in the vagina. States the one on her left wrist started draining some yellow pus earlier today. She denies any fevers. No history of previous abscesses. No medications for symptoms. PE: Alert and oriented x3. Lungs clear to auscultation without rales, rhonchi, wheezes. Heart regular rate rhythm without murmurs, rubs, gallops. She has a 1/2 cm lesion on her left dorsal wrist that is erythematous and tender to palpation no active discharge or draining noted. Unable to do full exam in triage. I have greeted and performed a rapid initial assessment of this patient. A comprehensive ED assessment and evaluation of the patient, analysis of test results and completion of the medical decision making process will be conducted by additional ED providers. I have specifically instructed the patient or family members with the patient to immediately return to any nursing staff should anything change in the patient's condition or with their chief complaint. TRAVEL OUTSIDE OF THE [place] IN LAST 30 DAYS: No - Related Data Allergies/Adverse Reactions: tramadol Allergy (Intermediate, Verified 03/13/19 17:06) AMS Penicillins Allergy (Mild, Verified 03/13/19 17:06) rash Sulfa (Sulfonamide Antibiotics) Allergy (Mild, Verified 03/13/19 17:06) rash aspirin Allergy (Verified 03/13/19 17:06) NO ASA Past Medical History - Past Medical History Cardiac Medical History: Reports: Hx Atrial Fibrillation, Hx Congestive Heart Failure, Hx Hypercholesterolemia, Hx Hypertension Denies: Hx Coronary Artery Disease, Hx DVT, Hx Heart Attack, Hx Pulmonary Embolism Pulmonary Medical History: Reports: Hx Asthma, Hx Bronchitis Denies: Hx COPD, Hx Pneumonia Neurological Medical History: Reports: Hx Migraine. Denies: Hx Cerebrovascular Accident, Hx Seizures Endocrine Medical History: Reports: Hx Diabetes Mellitus Type 2, Hx Hypothyroidism. Denies: Hx Diabetes Mellitus Type 1, Hx Hyperthyroidism Renal/ Medical History: Denies: Hx Peritoneal Dialysis GI Medical History: Reports: Hx Gastritis, Hx Gastroesophageal Reflux Disease. Denies: Hx Cirrhosis, Hx Crohn's Disease, Hx Hepatitis, Hx Ulcerative Colitis Musculoskeltal Medical History: Reports Hx Arthritis, Denies Hx Gout, Reports Hx Musculoskeletal Trauma Skin Medical History: Denies Hx Eczema, Denies Hx Psoriasis Psychiatric Medical History: Reports: Hx Anxiety, Hx Depression, Hx Schizoaffective Disorder, Hx Schizophrenia - schizo affective Infectious Medical History: Denies: Hx Hepatitis Past Surgical History: Reports: Hx Cholecystectomy, Hx Tubal Ligation. Denies: Hx Hysterectomy - Immunizations Immunizations up to date: Yes Hx Diphtheria, Pertussis, Tetanus Vaccination: Yes - 2012 Physical Exam - Vital signs Vitals: Temp Pulse Resp BP Pulse Ox 97.6 F 60 16 143/72 H 99 09/15/19 21:20 09/15/19 21:20 09/15/19 21:20 09/15/19 21:20 09/15/19 21:20 Course - Vital Signs Vital signs: Temp Pulse Resp BP Pulse Ox 97.6 F 60 16 143/72 H 99 09/15/19 21:20 09/15/19 21:20 09/15/19 21:20 09/15/19 21:20 09/15/19 21:20 Doctor's Discharge - Discharge Referrals: RENALDO DAMON DO [Primary Care Provider] - Follow up as needed
[2019-09-15 23:38] LABS: APPEARANCE,URINE CLEAR; BILIRUBIN,URINE NEGATIVE (NEGATIVE); COLOR,URINE COLORLESS; GLUCOSE, URINE >=500 mg/dL (NEGATIVE); KETONES,URINE NEGATIVE (NEGATIVE); LEUKOCYTE ESTERASE,URINE TRACE (NEGATIVE); NITRITE,URINE NEGATIVE (NEGATIVE); PROTEIN,URINE NEGATIVE (NEGATIVE); URINE SPECIFIC GRAVITY 1.003; UROBILINOGEN,URINE NEGATIVE mg/dL (<2.0)
== END 2019-09-16 00:50 | disposition left against medical advice (07) ==
LOC: ER 21:14
DX: L98.9 Disorder of the skin and subcutaneous tissue, unspecified (principal); E11.9 Type 2 diabetes mellitus without complications; J45.909 Unspecified asthma, uncomplicated; I10 Essential (primary) hypertension; Z88.8 Allergy status to other drugs, medicaments and biological substances; Z88.6 Allergy status to analgesic agent; Z88.0 Allergy status to penicillin; Z88.2 Allergy status to sulfonamides; Z53.20 Procedure and treatment not carried out because of patient's decision for unspecified reasons
CPT/HCPCS: 81001; 99281

== ENCOUNTER 2019-09-17 15:07 | Inpatient (IN) | payer MEDICAID ==
[2019-09-17] MEDS ORDERED: ACETAMINOPHEN 325 MG TABLET PO ONE (15:27)
--- NOTE | 2019-09-17 15:30 | ER Document Report ---
ED Medical Screen (RME) - General Chief Complaint: Skin Problem Stated Complaint: SKIN SORES Time Seen by Provider: 09/17/19 15:15 Primary Care Provider: RENALDO DAMON DO [Primary Care Provider] - Follow up as needed Notes: Patient is a 54-year-old female who presents emergency department with a chief complaint of abscesses. Patient reports a couple days ago developing an abscess to the abdomen, left forearm as well as underneath her left arm. Patient denies a history of MRSA. Patient reports she is a diabetic but is not currently checking her blood sugars at home and is not currently on any medication. Emerson goodson reports over the past few days she is also felt very unsteady when she walks and off balance. Patient denies fall or head injury. TRAVEL OUTSIDE OF THE [place] IN LAST 30 DAYS: No - Related Data Allergies/Adverse Reactions: tramadol Allergy (Intermediate, Verified 03/13/19 17:06) AMS Penicillins Allergy (Mild, Verified 03/13/19 17:06) rash Sulfa (Sulfonamide Antibiotics) Allergy (Mild, Verified 03/13/19 17:06) rash aspirin Allergy (Verified 03/13/19 17:06) NO ASA Past Medical History - Past Medical History Cardiac Medical History: Reports: Hx Atrial Fibrillation, Hx Congestive Heart Failure, Hx Hypercholesterolemia, Hx Hypertension Denies: Hx Coronary Artery Disease, Hx DVT, Hx Heart Attack, Hx Pulmonary Embolism Pulmonary Medical History: Reports: Hx Asthma, Hx Bronchitis Denies: Hx COPD, Hx Pneumonia Neurological Medical History: Reports: Hx Migraine. Denies: Hx Cerebrovascular Accident, Hx Seizures Endocrine Medical History: Reports: Hx Diabetes Mellitus Type 2, Hx Hypothyroidism. Denies: Hx Diabetes Mellitus Type 1, Hx Hyperthyroidism Renal/ Medical History: Denies: Hx Peritoneal Dialysis GI Medical History: Reports: Hx Gastritis, Hx Gastroesophageal Reflux Disease. Denies: Hx Cirrhosis, Hx Crohn's Disease, Hx Hepatitis, Hx Ulcerative Colitis Musculoskeltal Medical History: Reports Hx Arthritis, Denies Hx Gout, Reports Hx Musculoskeletal Trauma Skin Medical History: Denies Hx Eczema, Denies Hx Psoriasis Psychiatric Medical History: Reports: Hx Anxiety, Hx Depression, Hx Schizoaffective Disorder, Hx Schizophrenia - schizo affective Infectious Medical History: Denies: Hx Hepatitis Past Surgical History: Reports: Hx Cholecystectomy, Hx Tubal Ligation. Denies: Hx Hysterectomy - Immunizations Immunizations up to date: Yes Hx Diphtheria, Pertussis, Tetanus Vaccination: Yes - 2012 Physical Exam - Vital signs Vitals: Temp Pulse Resp BP Pulse Ox 98.5 F 92 16 102/48 L 95 09/17/19 15:12 09/17/19 15:12 09/17/19 15:12 09/17/19 15:12 09/17/19 15:12 Course - Re-evaluation Re-evalutation: 09/17/19 15:29 Patient has an abscess to the abdomen and underneath the left axilla. The left axilla will require incision and drainage. Will obtain basic labs as well as a urinalysis as the patient reports feeling off balance over the past few days. This will include a glucose as the patient reports being diabetic but not currently checking or taking medication. I have greeted and performed a rapid initial assessment of this patient. A comprehensive ED assessment and evaluation of the patient, analysis of test results and completion of the medical decision making process will be conducted by additional ED providers. - Vital Signs Vital signs: Temp Pulse Resp BP Pulse Ox 98.5 F 92 16 102/48 L 95 09/17/19 15:12 09/17/19 15:12 09/17/19 15:12 09/17/19 15:12 09/17/19 15:12 Doctor's Discharge - Discharge Referrals: RENALDO DAMON DO [Primary Care Provider] - Follow up as needed
[2019-09-17 15:54] LABS: ABSOLUTE EOSINOPHILS # (AUTO) 0.1 10^3/uL (0.0-0.6); ABSOLUTE LYMPHOCYTES (AUTO) 2.1 10^3/uL (0.5-4.7); ABSOLUTE MONOCYTES (AUTO) 0.6 10^3/uL (0.1-1.4); ABSOLUTE NEUT (AUTO) 10.5 10^3/uL (1.7-8.2); BASOPHILS % (AUTO) 0.2 % (0-2); EOSINOPHILS % (AUTO) 0.9 % (0-6); HEMATOCRIT 41.9 % (36.0-47.0); HEMOGLOBIN 13.4 g/dL (12.0-15.5); LYMPHOCYTES % (AUTO) 15.9 % (13-45); MEAN CORPUSCULAR VOLUME 97 fl (80-97); MONOCYTES % (AUTO) 4.3 % (3-13); PLATELET COUNT 352 10^3/uL (150-450); RED BLOOD COUNT 4.33 10^6/uL (3.72-5.28); RED CELL DISTRIBUTION WIDTH 14.4 % (11.5-14.0); SEGMENTED NEUTROPHILS % (AUTO) 78.7 % (42-78); TOTAL CELLS COUNTED % (AUTO) 100 %; WHITE BLOOD COUNT 13.3 10^3/uL (4.0-10.5)
[2019-09-17 16:10] LABS: ALBUMIN 3.6 g/dL (3.5-5.0); ALKALINE PHOSPHATASE 167 U/L (38-126); ANION GAP 11 (5-19); ASPARTATE AMINO TRANSFERASE 23 U/L (14-36); BILIRUBIN,DIRECT 0.1 mg/dL (0.0-0.4); BILIRUBIN,TOTAL 1.1 mg/dL (0.2-1.3); BLOOD UREA NITROGEN 30 mg/dL (7-20); CALCIUM 9.2 mg/dL (8.4-10.2); CARBON DIOXIDE 24 mmol/L (22-30); CHLORIDE 95 mmol/L (98-107); POTASSIUM 4.2 mmol/L (3.6-5.0); TOTAL PROTEIN 6.3 g/dL (6.3-8.2)
[2019-09-17 16:18] LABS: GLUCOSE 449 mg/dL (75-110)
[2019-09-17 16:50] LABS: APPEARANCE,URINE SLIGHTLY-CLOUDY; BILIRUBIN,URINE NEGATIVE (NEGATIVE); COLOR,URINE YELLOW; GLUCOSE, URINE >=500 mg/dL (NEGATIVE); KETONES,URINE NEGATIVE (NEGATIVE); LEUKOCYTE ESTERASE,URINE MODERATE (NEGATIVE); NITRITE,URINE NEGATIVE (NEGATIVE); PROTEIN,URINE NEGATIVE (NEGATIVE); URINE SPECIFIC GRAVITY 1.014; UROBILINOGEN,URINE NEGATIVE mg/dL (<2.0)
[2019-09-17] MEDS ORDERED: LIDOCAINE 2% INJ (20 MG/ML) 20 ML MDV INJ ONE (17:00)
[2019-09-17] MEDS ORDERED: NORMAL SALINE 1000 ML 1,000 ML IV ONE ×2 (17:01→18:41)
[2019-09-17] MEDS ORDERED: INSULIN REG, HUMAN 100 UNIT/ML 3 ML VIAL (PYX) IV ONE (17:02)
[2019-09-17] MEDS ORDERED: CLINDAMYCIN PHOSPHATE INJ 300 MG/2 ML SDV IV ONE (17:03)
--- NOTE | 2019-09-17 18:46 | ER Document Report ---
ED Skin Rash/Insect Bite/Abscs - General Chief Complaint: Skin Problem Stated Complaint: SKIN SORES Time Seen by Provider: 09/17/19 15:15 Primary Care Provider: RENALDO DAMON DO [Primary Care Provider] - Follow up as needed Notes: This 54-year-old woman presents to the emergency department with complaint of areas of skin lesions which have become more painful and swollen. She has an area on the left lower abdominal abdominal wall fold with a center which is firm and indurated and a surrounding large area of redness and tenderness. She also has an open lesion on the right medial thigh which is firm and draining purulent material. She also has erythema and irritation in the inguinal area with redness which extends into the medial thigh and onto the labia bilaterally. She is a diabetic, denies fever, has been poorly compliant with medications. She states that she had been on metformin at one point but it caused some problems with her kidneys. She is not sure which medication she is taking at this time. TRAVEL OUTSIDE OF THE [place] IN LAST 30 DAYS: No - Related Data Allergies/Adverse Reactions: tramadol Allergy (Intermediate, Verified 03/13/19 17:06) AMS Penicillins Allergy (Mild, Verified 03/13/19 17:06) rash Sulfa (Sulfonamide Antibiotics) Allergy (Mild, Verified 03/13/19 17:06) rash aspirin Allergy (Verified 03/13/19 17:06) NO ASA Past Medical History - Social History Smoking Status: Former Smoker Family History: CAD, CVA, DM, Hyperlipidemia, Hypertension, Malignancy, Thyroid Disfunction, Other - Asthma - Past Medical History Cardiac Medical History: Reports: Hx Atrial Fibrillation, Hx Congestive Heart Failure, Hx Hypercholesterolemia, Hx Hypertension Denies: Hx Coronary Artery Disease, Hx DVT, Hx Heart Attack, Hx Pulmonary Embolism Pulmonary Medical History: Reports: Hx Asthma, Hx Bronchitis Denies: Hx COPD, Hx Pneumonia Neurological Medical History: Reports: Hx Migraine. Denies: Hx Cerebrovascular Accident, Hx Seizures Endocrine Medical History: Reports: Hx Diabetes Mellitus Type 2, Hx Hypothyro idism. Denies: Hx Diabetes Mellitus Type 1, Hx Hyperthyroidism Renal/ Medical History: Denies: Hx Peritoneal Dialysis GI Medical History: Reports: Hx Gastritis, Hx Gastroesophageal Reflux Disease. Denies: Hx Cirrhosis, Hx Crohn's Disease, Hx Hepatitis, Hx Ulcerative Colitis Musculoskeletal Medical History: Reports Hx Arthritis, Denies Hx Gout, Reports Hx Musculoskeletal Trauma Skin Medical History: Denies Hx Eczema, Denies Hx Psoriasis Psychiatric Medical History: Reports: Hx Anxiety, Hx Depression, Hx Schizoaffective Disorder, Hx Schizophrenia - schizo affective Infectious Medical History: Denies: Hx Hepatitis Past Surgical History: Reports: Hx Cholecystectomy, Hx Tubal Ligation. Denies: Hx Hysterectomy - Immunizations Immunizations up to date: Yes Hx Diphtheria, Pertussis, Tetanus Vaccination: Yes - 2012 Review of Systems - Review of Systems Notes: Constitutional: Negative for fever. HENT: Negative for sore throat. Eyes: Negative for visual changes. Cardiovascular: Negative for chest pain. Respiratory: Negative for shortness of breath. Gastrointestinal: Negative for abdominal pain, vomiting or diarrhea. Genitourinary: Negative for dysuria. Musculoskeletal: Negative for back pain. Skin: + Skin sores Neurological: Negative for headaches, weakness or numbness. 10 point ROS negative except as marked above and in HPI. Physical Exam - Vital signs Vitals: Temp Pulse Resp BP Pulse Ox 98.5 F 92 16 102/48 L 95 09/17/19 15:12 09/17/19 15:12 09/17/19 15:12 09/17/19 15:12 09/17/19 15:12 - Notes Notes: PHYSICAL EXAMINATION: Physical Exam: General: Well-nourished well-developed 54-year-old woman complaining of pain in the abdomen and right thigh. HEENT: NC/AT, pupils equal round and reactive to light, MM moist,nares clear, oropharynx clear, airway patent Neck: supple, no adenopathy, no masses. Good range of motion Lungs: Cear, no wheezing, no rales no rhonchi CVS: Regular rate and rhythm no murmur gallop or rub Abdomen: Soft, active, nontender, no masses, no hepatosplenomegaly, left lower abdominal wall skin infection (see below) Ext: No edema, clubbing or cyanosis. Neuro: Alert and responsive, moving all 4 extremities on command, cranial nerves intact, no focal findings Skin: Left lower abdominal wall with a 12 x 6 cm area of erythema with a central area of firmness and tenderness., Right thigh with an open 3 x 3 cm area of firmness with purulent drainage noted. PSYCH: Normal mood, normal affect. Course - Re-evaluation Re-evalutation: 09/17/19 18:49 An incision and drainage procedure was performed on the abdominal wall abscess, cultures were obtained and quarter-inch packing was placed in the wound site. A CT of the abdomen and pelvis noncontrast was performed. Blood cultures x2, IV clindamycin, fluids x2 L, regular Humulin 10 units IV was given in the emergency department. 09/17/19 19:30 I have discussed the patient with the hospitalist, , he has agreed to bring the patient in as an obvious for continued IV antibiotics and closer monitoring of her cellulitis. Given the poor control of diabetes and poor compliance with medications it is felt to be in the patient's best interest to be treated with IV antibiotics and then switch to orals with clear education on treatment. - Vital Signs Vital signs: Temp Pulse Resp BP Pulse Ox 98.5 F 92 16 102/48 L 95 09/17/19 15:12 09/17/19 15:12 09/17/19 15:12 09/17/19 15:12 09/17/19 15:12 - Laboratory Result Diagrams: 09/17/19 15:35 09/17/19 15:35 Laboratory results interpreted by me: 09/17/19 09/17/19 09/17/19 15:35 15:35 16:29 WBC 13.3 H RDW 14.4 H Absolute Neuts (auto) 10.5 H Seg Neutrophils % 78.7 H Sodium 130.0 L Chloride 95 L BUN 30 H Creatinine 1.64 H Est GFR ( Amer) 40 L Est GFR (MDRD) Non-Af 33 L Glucose 449 H* Alkaline Phosphatase 167 H Urine Glucose (UA) >=500 H Urine Blood LARGE H Ur Leukocyte Esterase MODERATE H 09/17/19 18:50 I have reviewed laboratory data and used this information for the treatment decisions regarding the patient. - Diagnostic Test Radiology reviewed: Image reviewed, Reports reviewed Radiology results interpreted by me: 09/17/19 19:33 CT abdomen and pelvis without contrast. Left pannus soft tissue lesion with subcutaneous fat stranding and hyperdense material noted within the soft tissue area of inflammation without abscess. Discharge - Discharge Clinical Impression: Cutaneous abscess of abdominal wall, Cellulitis of left abdominal wall, Abscess of right thigh, Intertrigo labialis, Poorly controlled diabetes mellitus, Non- compliant behavior Obesity Qualifiers: Obesity type: unspecified obesity type Obesity classification: adult class 3 (BMI >= 40) Serious obesity comorbidity presence: with serious comorbidity Body mass index: BMI 40.0-44.9 Qualified Code(s): E66.01 - Morbid (severe) obesity due to excess calories UTI (urinary tract infection) Qualifiers: Urinary tract infection type: site unspecified Hematuria presence: without hematuria Qualified Code(s): N39.0 - Urinary tract infection, site not specified Condition: Good Disposition: ADMITTED OBSERVATION Admitting Provider: Christen (Hospitalist) Unit Admitted: Medical Floor Referrals: RENALDO DAMON DO [Primary Care Provider] - Follow up as needed
--- NOTE | 2019-09-17 18:51 | EKG REPORT ---
SEVERITY:- ABNORMAL ECG - SINUS RHYTHM PROBABLE LEFT ATRIAL ABNORMALITY NONSPECIFIC ST-T CHANGES- INFERIOR LEADS : Confirmed by: Jeramie Quevedo MD 17-Sep-2019 18:51:13
--- NOTE | 2019-09-17 19:15 | RADIOLOGY REPORT (SQ) ---
EXAM DESCRIPTION: CT ABD/PELVIS NO ORAL OR IV IMAGES COMPLETED DATE/TIME: 09/17/2019 6:57 pm REASON FOR STUDY: abscess inguinal/abdominal wall COMPARISON: 03/13/2019 TECHNIQUE: CT scan of the abdomen and pelvis performed without intravenous or oral contrast. Images reviewed with lung, soft tissue, and bone windows. Reconstructed coronal and sagittal MPR images revi ewed. All images stored on PACS. All CT scanners at this facility use dose modulation, iterative reconstruction, and/or weight based d osing when appropriate to reduce radiation dose to as low as reasonably achievable (ALARA). [facility]: Dose Right [facility]: CareDose [facility]: Dose Right [facility]: Teradose 4D [facility]: Smart [email or web address] RADIATION DOSE: CT Rad equipment meets quality standard of care and radiation dose reduction techniq ues were employed. CTDIvol: 18.3 mGy. DLP: 1044 mGy-cm.mGy. LIMITATIONS: None. FINDINGS: LOWER CHEST: No significant findings. No nodules or infiltrates. NON-CONTRASTED LIVER, SPLEEN, ADRENALS: Evaluation limited by lack of IV contrast. No identified sign ificant masses. PANCREAS: Fatty atrophy of the pancreatic head. No masses. No peripancreatic inflammatory changes. GALLBLADDER: Surgically absent. RIGHT KIDNEY AND URETER: Ectopic position within the pelvis. No suspicious masses. Assessment limite d by lack of IV contrast. No significant calcifications. No hydronephrosis or hydroureter. LEFT KIDNEY AND URETER: No suspicious masses. Assessment limited by lack of IV contrast. No signifi cant calcifications. No hydronephrosis or hydroureter. AORTA AND RETROPERITONEUM: No aneurysm. No retroperitoneal masses or adenopathy. BOWEL AND PERITONEAL CAVITY: No obvious masses or inflammatory changes. No free fluid. APPENDIX: Normal. PELVIS, BLADDER, AND ABDOMINAL WALL:No abnormal masses. No free fluid. Bladder normal. BONES: No significant findings. OTHER: A small soft tissue defect is seen of the left pannus noting hyperdense material at the defect which is of uncertain etiology or significance, may represent hyperdense ointment or other wound eleazar atment. Subcutaneous fat stranding is seen associated with this finding. There is no focal fluid co llection or abscess. IMPRESSION: Left pannus soft tissue injury with nonspecific radiodense material seen at the defect s ite. Surrounding inflammatory changes without abscess. Chronic and incidental intra-abdominal findi ngs as above. COMMENT: Quality ID # [id number]: Final reports with documentation of one or more dose reduction techniques (e.g., Automated exposure control, adjustment of the mA and/or kV according to patient size, use of iterative reconstruction technique) TECHNICAL DOCUMENTATION: JOB ID: [id number] 2010 [employer]- All Rights Reserved Reading location - IP/workstation name: [email or web address]
[2019-09-17] MEDS ORDERED: HYDROCODONE/ACETAMINOPHEN 5-325 MG TABLET PO ONE (19:54)
[2019-09-17] MEDS ORDERED: MAGNESIUM HYDROXIDE SUSP 30 ML UDCUP PO PRN (20:06)
[2019-09-17] MEDS ORDERED: GUAIFENESIN SYRP 200 MG/10 ML UDC PO PRN (20:06)
[2019-09-17] MEDS ORDERED: MAG HYDROX/AL HYDROX/SIMETH SUSP 30 ML UDCUP PO PRN (20:06)
[2019-09-17] MEDS ORDERED: ACETAMINOPHEN 325 MG TABLET PO PRN (20:06)
[2019-09-17] MEDS ORDERED: LORAZEPAM INJ 2 MG/1 ML VIAL IV PRN (20:06)
[2019-09-17] MEDS ORDERED: HYDRALAZINE HCL INJ/PF 20 MG/1 ML SDV IV PRN (20:06)
[2019-09-17] MEDS ORDERED: MORPHINE SULFATE 10 MG/ML INJ IV PRN ×3 (20:06→20:59)
[2019-09-17] MEDS ORDERED: PROMETHAZINE HCL INJ 25 MG/1 ML VIAL IV PRN (20:06)
[2019-09-17] MEDS ORDERED: DEXTROSE 50%-WATER 25 GM/50 ML DISP.SYRIN IV PRN ×2 (20:12)
[2019-09-17] MEDS ORDERED: DEXTROSE 40% GEL 15 GM TUBE PO PRN ×2 (20:12)
[2019-09-17] MEDS ORDERED: GLUCAGON,HUMAN RECOMB 1 MG INJ IM PRN (20:12)
[2019-09-17] MEDS ORDERED: APIXABAN 5 MG TABLET PO ONE (21:00)
[2019-09-17] MEDS ORDERED: LEVOFLOXACIN 750 MG TABLET PO ONE (21:00)
[2019-09-17] MEDS: RINGERS SOLUTION,LACTATED 1,000 ML IV PRN (22:29)
[2019-09-17] MEDS: INSULIN REG, HUMAN 100 UNIT/ML 3 ML VIAL (PYX) SUBCUT SCH (22:32)
[2019-09-17] MEDS ORDERED: LINEZOLID 600 MG TABLET ONE (22:36)
--- NOTE | 2019-09-17 22:42 | PDOC H&P ---
History of Present Illness Admission Date/PCP: 09/17/2019 19:30 RENALDO DAMON DO Patient complains of: Skin sores History of Present Illness: SHOSHANA BOWMAN is a 54 year old female who presented to the emergency room with a 2-week history of "skin sores". She admits to the gradual development of 3 areas of "skin sores" over the last 2 weeks. The first area erupted on her right thigh with redness being present constantly and gradually spreading becoming more tender and eventually opening to drain pus. The second area began on her left abdominal pannus region 1 week ago and has gradually increased in redness and tenderness. The third area is in her jean-labial groin and has been gradually developing over the last 2 days. She denies associated or accompanying signs and symptoms. She admits prior similar episodes of lesser degree. She has not identified any aggravating or ameliorating factors for her "skin sores". In the emergency room she was found to have a draining abscess of the right thigh and a new abscess of the left abdominal pannus which was incised and drained with packing placed. Her groin was evaluated and no abscess or obvious cellulitis was found, however intertrigo was noted. Patient's white blood count was 13,000 and her blood sugar was 449. She was started on IV antibiotic therapy with clindamycin and treated with insulin. She was subsequently admitted observation status for further evaluation and treatment. Past Medical History Cardiac Medical History: Reports: Atrial Fibrillation, Congestive Heart Failure, Hyperlipidema, Hypertension Denies: Coronary Artery Disease, DVT, Myocardial Infarction, Pulmonary Embolism Pulmonary Medical History: Reports: Asthma, Bronchitis Denies: Chronic Obstructive Pulmonary Disease (COPD), Pneumonia EENT Medical History: Denies: Cataracts, Ears - Hearing aids Neurological Medical History: Reports: Migraine Denies: Seizures Endocrine Medical History: Reports: Diabetes Mellitus Type 2 - Poorly compliant with medications and diet, Hypothyroidism, Obesity Denies: Diabetes Mellitus Type 1, Hyperthyroidism Renal/ Medical History: Reports: Chronic Kidney Disease Denies: Nephrolithiasis Malignancy Medical History: Reports: None GI Medical History: Reports: Gastroesophageal Reflux Disease Denies: Cirrhosis, Crohn's Disease, Hepatitis, Peptic Ulcer Disease, Ulcerative Colitis Musculoskeltal Medical History: Reports: Arthritis Denies: Gout Skin Medical History: Denies: Eczema, Psoriasis Psychiatric Medical History: Reports: Depression, Schizoaffective Disorder Denies: Alcohol Dependency, Substance Abuse, Tobacco Dependency Traumatic Medical History: Reports: None Hematology: Denies: Anemia, Bleeding Tendencies Infectious Medical History: Reports: None Past Surgical History Past Surgical History: Reports: Cholecystectomy, Tubal Ligation Social History Information Source: Patient Lives with: Spouse/Significant other Smoking Status: Former Smoker Electronic Cigarette use?: No Frequency of Alcohol Use: None Hx Recreational Drug Use: No Drugs: None Hx Prescription Drug Abuse: No - Advance Directive Resuscitation Status: Full Code Surrogate healthcare decision maker:: Salvador Campbell Family History Family History: CAD, CVA, DM, Hyperlipidemia, Hypertension, Malignancy, Thyroid Disfunction, Other - Asthma Parental Family History Reviewed: Yes Children Family History Reviewed: No Sibling(s) Family History Reviewed.: Yes Medication/Allergy Home Medications: Alprazolam [Xanax] 1 mg PO TIDP PRN MDD 4 MG 03/18/17 Amitriptyline HCl [Elavil 25 mg Tablet] 50 mg PO QHS 03/18/17 Apixaban [Eliquis 5 mg Tablet] 5 mg PO Q12 03/18/17 Zolpidem Tartrate [Ambien] 10 mg PO QHS 03/18/17 Brexpiprazole [Rexulti] 2 mg PO QHS 02/12/18 Desvenlafaxine [Desvenlafaxine ER] 50 mg PO DAILY 02/12/18 Solifenacin Succinate [Vesicare] 5 mg PO DAILY 02/12/18 Fluticasone Propionate [Flovent Hfa] 1 puff IH Q12 06/19/19 Fluticasone/Salmeterol [Advair 250-50 Diskus 14 Dose/Diskus] 1 inh IH Q12 06/19/19 Glipizide [Glipizide Xl] 10 mg PO [id number] 06/19/19 Oxycodone HCl/Acetaminophen [Percocet 5-325 mg Tablet] 1 tab PO Q8HP PRN 06/19/19 Prazosin HCl [Minipress] 2 mg PO QHS 06/19/19 Sitagliptin Phosphate [Januvia 50 mg Tablet] 100 mg PO DAILY 06/19/19 Tizanidine HCl 4 mg PO Q8 06/19/19 Furosemide [Lasix 40 mg Tablet] 40 mg PO DAILY #30 tablet 06/28/19 Levothyroxine Sodium [Synthroid 0.15 mg Tablet] 0.15 mg PO DAILY #30 tablet 06/28/19 Magnesium Oxide [Mag-Ox 400 mg Tablet] 400 mg PO DAILY 15 Days tablet 06/28/19 Metoprolol Succinate [Toprol Xl 25 mg Tab.sr] 50 mg PO Q12 30 Days 06/28/19 Levofloxacin [Levaquin 750 mg Tablet] 750 mg PO DAILY #4 tablet 08/10/19 Dexamethasone [Decadron 4 Mg Tablet] 4 mg PO DAILY #3 tablet 09/01/19 Lidocaine [Lidoderm 5% (700 mg) Transdermal Patch] 1 patch TP DAILY #30 adh..patch 09/01/19 Allergies/Adverse Reactions: tramadol Allergy (Intermediate, Verified 03/13/19 17:06) AMS Penicillins Allergy (Mild, Verified 03/13/19 17:06) rash Sulfa (Sulfonamide Antibiotics) Allergy (Mild, Verified 03/13/19 17:06) rash aspirin Allergy (Verified 03/13/19 17:06) NO ASA Review of Systems Constitutional: ABSENT: chills, fever(s) Eyes: ABSENT: visual disturbances, other - Eye pain Ears: ABSENT: hearing changes, other - Ear pain Nose, Mouth, and Throat: ABSENT: headache(s), sore throat Cardiovascular: ABSENT: chest pain, palpitations Respiratory: ABSENT: cough, dyspnea Gastrointestinal: ABSENT: abdominal pain, constipation, diarrhea, nausea, vomiting Genitourinary: ABSENT: dysuria, hematuria Musculoskeletal: ABSENT: back pain, joint swelling Integumentary: PRESENT: as per HPI, erythema, wounds. ABSENT: pruritus, rash Neurological: PRESENT: other - Feels off balance or unsteady with walking at times. ABSENT: confusion, convulsions, focal weakness, memory loss, syncope Psychiatric: ABSENT: anxiety, depression Endocrine: ABSENT: cold intolerance, heat intolerance, polydipsia, polyphagia, polyuria Hematologic/Lymphatic: ABSENT: easy bleeding, easy bruising Allergic/Immunologic: ABSENT: seasonal rhinorrhea Physical Exam Vital Signs: Temp Pulse Resp BP Pulse Ox 98.5 F 92 16 102/48 L 95 09/17/19 15:12 09/17/19 15:12 09/17/19 15:12 09/17/19 15:12 09/17/19 15:12 Intake & Output 09/15/19 09/16/19 09/17/19 23:59 23:59 23:59 Intake Total 1000 Balance 1000 Weight 113.398 kg General appearance: PRESENT: cooperative, mild distress - Secondary to pain in her left abdominal pannus, morbidly obese Head exam: PRESENT: atraumatic, normocephalic Eye exam: PRESENT: conjunctiva pink. ABSENT: conjunctival injection, scleral icterus Ear exam: PRESENT: normal external ear exam. ABSENT: bleeding, drainage Mouth exam: PRESENT: dry mucosa, neck supple Neck exam: ABSENT: thyromegaly, tracheal deviation Respiratory exam: PRESENT: clear to auscultation denis, symmetrical, unlabored Cardiovascular exam: PRESENT: RRR. ABSENT: clicks, gallop, rubs Pulses: PRESENT: normal radial pulses, normal dorsalis pedis pul Vascular exam: PRESENT: normal capillary refill. ABSENT: pallor GI/Abdominal exam: PRESENT: normal bowel sounds, soft, tenderness - Moderate tenderness in the left lower abdomen superficial area of the pannus at site of cellulitis with abscess and recent incision and drainage with packing and dressing in place. Torso Front/Back Image: 1 - Cellulitis with abscess 2 - Cellulitis with purulent drainage Rectal exam: PRESENT: deferred Extremities exam: ABSENT: joint swelling, pedal edema Musculoskeletal exam: ABSENT: deformity, dislocation Neurological exam: PRESENT: alert, oriented to person, oriented to place, oriented to time, oriented to situation, CN II-XII grossly intact. ABSENT: motor sensory deficit Psychiatric exam: PRESENT: appropriate affect, normal mood Skin exam: PRESENT: dry, erythema - Erythema and edema with induration noted on the left abdominal pannus with a 8 x 15 cm area of erythema noted. Erythema and edema with mild induration of the right medial thigh with a 5 x 5 cm area of erythema., rash - There is an erythematous intertriginous rash in the bilateral groins involving the external genitalia consistent with intertrigo., warm. ABSENT: jaundice, urticaria Results Laboratory Results: 09/17/19 15:35 09/17/19 15:35 09/17/19 09/17/19 09/17/19 15:35 15:35 16:29 WBC 13.3 H RBC 4.33 Hgb 13.4 Hct 41.9 MCV 97 MCH 31.0 MCHC 32.0 RDW 14.4 H Plt Count 352 Seg Neutrophils % 78.7 H Sodium 130.0 L Potassium 4.2 Chloride 95 L Carbon Dioxide 24 Anion Gap 11 BUN 30 H Creatinine 1.64 H Est GFR ( Amer) 40 L Glucose 449 H* Calcium 9.2 Total Bilirubin 1.1 AST 23 Alkaline Phosphatase 167 H Total Protein 6.3 Albumin 3.6 Urine Color YELLOW Urine Appearance SLIGHTLY-CLOUDY Urine pH 5.0 Ur Specific [place] 1.014 Urine Protein NEGATIVE Urine Glucose (UA) >=500 H Urine Ketones NEGATIVE Urine Blood LARGE H Urine Nitrite NEGATIVE Ur Leukocyte Esterase MODERATE H Urine WBC (Auto) 3 Urine RBC (Auto) 10 09/17/19 15:35 Troponin I < 0.012 Impressions: Abdomen/Pelvis CT 09/17/19 18:43 IMPRESSION: Left pannus soft tissue injury with nonspecific radiodense material seen at the defect site. Surrounding inflammatory changes without abscess. Chronic and incidental intra-abdominal findings as above. Assessment and Plan - Diagnosis (1) Acute kidney injury (nontraumatic) Is this a current diagnosis for this admission?: Yes (2) Cutaneous abscess of abdominal wall Is this a current diagnosis for this admission?: Yes (3) Abscess of right thigh Is this a current diagnosis for this admission?: Yes (4) Intertrigo labialis Is this a current diagnosis for this admission?: Yes (5) Leukocytosis, unspecified Qualifiers: Leukocytosis type: unspecified Qualified Code(s): D72.829 - Elevated white blood cell count, unspecified Is this a current diagnosis for this admission?: Yes (6) Diabetes mellitus type 2 in obese Is this a current diagnosis for this admission?: Yes (7) Morbid obesity with BMI of 40.0-44.9, adult Is this a current diagnosis for this admission?: Yes (8) Hypertension Qualifiers: Hypertension type: essential hypertension Qualified Code(s): I10 - Essential (primary) hypertension Is this a current diagnosis for this admission?: Yes (9) Non-compliant behavior Is this a current diagnosis for this admission?: Yes (10) Schizoaffective disorder Qualifiers: Schizoaffective disorder type: unspecified Qualified Code(s): F25.9 - Schizoaffective disorder, unspecified Is this a current diagnosis for this admission?: Yes - Plan Summary Summary: Patient is admitted to observation status on the medical floor where she will receive routine supportive and symptomatic cares. She will be treated with oral Levaquin and Zyvox. An initial dose of intravenous insulin will be given to normalize her blood sugar. She will receive IV fluids using lactated Ringer's at 250 mL/h x 12 hours. Before meals and at bedtime Accu-Cheks will be performed and sliding scale insulin will be used for hyperglycemia with a hypoglycemic protocol in place. She will use morphine sulfate 2 to 4 mg IV every 2 hours as needed for pain. She will use Ativan 1 mg IV every 4 hours as needed for anxiety or restlessness. She will be placed on a cardiac and diabetic restricted diet. A CBC, metabolic profile, magnesium level, hemoglobin A1c, thyroid profile, BNP and lipid profile will be obtained in the morning. The patient's home medications will be resumed, as appropriate, once her medication list has been verified and reconciled. - Time Time Spent with patient: 15-24 minutes Medications reviewed and adjusted accordingly: Yes Anticipated discharge: Home with Homehealth Within: within 36 hours - Inpatient Certification Based on my medical assessment, after consideration of the patient's comorbidities, presenting symptoms, or acuity I expect that the services needed warrant INPATIENT care.: No I certify that my determination is in accordance with my understanding of Medicare's requirements for reasonable and necessary INPATIENT services [42 CFR 412.3e].: No
[2019-09-17] MEDS ORDERED: DOXAZOSIN MESYLATE 2 MG TABLET PO ONE (23:00)
[2019-09-17] MEDS ORDERED: NYSTATIN/TRIAMCIN OINTMENT 15 GM TP ONE (23:00)
[2019-09-17] MEDS: LINEZOLID 600 MG TABLET PO SCH (23:01)
[2019-09-17] MEDS: MORPHINE SULFATE 10 MG/ML INJ IV PRN (23:28)
[2019-09-17] MEDS: MELATONIN 5 MG TABLET PO PRN (23:40)
[2019-09-18] MEDS: PANTOPRAZOLE SODIUM 40 MG TABLET.DR PO SCH (06:06)
[2019-09-18] MEDS: MORPHINE SULFATE 10 MG/ML INJ IV PRN ×2 (06:07→15:27)
[2019-09-18 06:35] LABS: HEMATOCRIT 37.1 % (36.0-47.0); HEMOGLOBIN 12.2 g/dL (12.0-15.5); MEAN CORPUSCULAR HGB CONC 32.8 g/dL (32.0-36.0); MEAN CORPUSCULAR VOLUME 95 fl (80-97); PLATELET COUNT 277 10^3/uL (150-450); RED BLOOD COUNT 3.92 10^6/uL (3.72-5.28); RED CELL DISTRIBUTION WIDTH 14.2 % (11.5-14.0)
[2019-09-18 06:57] LABS: ANION GAP 7 (5-19); BLOOD UREA NITROGEN 22 mg/dL (7-20); CALCIUM 8.9 mg/dL (8.4-10.2); CARBON DIOXIDE 23 mmol/L (22-30); CHLORIDE 103 mmol/L (98-107); CHOLESTEROL 183.45 mg/dL (0-200); GLUCOSE 186 mg/dL (75-110); POTASSIUM 4.4 mmol/L (3.6-5.0); TRIGLYCERIDES 175 mg/dL (<150)
[2019-09-18 07:07] LABS: DIRECT LDL 104 mg/dL (<100)
--- NOTE | 2019-09-18 09:53 | PDOC PROGRESS REPORT ---
Subjective Progress Note for:: 09/17/19 Subjective:: 54 year old female who presented to the emergency room with a 2-week history of "skin sores". She admits to the gradual development of 3 areas of "skin sores" over the last 2 weeks. The first area erupted on her right thigh with redness being present constantly and gradually spreading becoming more tender and eventually opening to drain pus. The second area began on her left abdominal pannus region 1 week ago and has gradually increased in redness and tenderness. The third area is in her jean-labial groin and has been gradually developing over the last 2 days. She denies associated or accompanying signs and symptoms. She admits prior similar episodes of lesser degree. She has not identified any aggravating or ameliorating factors for her "skin sores". In the emergency room she was found to have a draining abscess of the right thigh and a new abscess of the left abdominal pannus which was incised and drained with packing placed. Her groin was evaluated and no abscess or obvious cellulitis was found, however intertrigo was noted. Patient's white blood count was 13,000 and her blood sugar was 449. She was started on IV antibiotic therapy with clindamycin and treated with insulin. She was subsequently admitted observation status for further evaluation and treatment. 09/18/19-no acute events the last 24 hours. WBC count improved to 12,000. On examination for me looks like patient has abdominal wall abscess. Dr. Floyd is going to see the patient today for further recommendations. Plan is to continue the IV antibiotic therapy and waiting for the blood cultures and wound cultures at this time. Reason For Visit: ACUTE KIDNEY INJURY, CELLULITIS WITH ABSCESS Physical Exam Vital Signs: Temp Pulse Resp BP Pulse Ox 98.4 F 60 17 82/51 L 91 L 09/18/19 08:00 09/18/19 08:00 09/18/19 08:00 09/18/19 08:00 09/18/19 08:00 Intake & Output 09/17/19 09/18/19 09/19/19 06:59 06:59 06:59 Intake Total 1120 Balance 1120 Weight 112.1 kg General appearance: PRESENT: no acute distress, morbidly obese Head exam: PRESENT: atraumatic Eye exam: PRESENT: PERRLA Mouth exam: PRESENT: dry mucosa Teeth exam: PRESENT: poor dentation Neck exam: ABSENT: carotid bruit, JVD, lymphadenopathy, thyromegaly Respiratory exam: PRESENT: clear to auscultation denis. ABSENT: rales, rhonchi, wheezes Cardiovascular exam: PRESENT: RRR. ABSENT: diastolic murmur, rubs, systolic murmur Pulses: PRESENT: normal dorsalis pedis pul GI/Abdominal exam: PRESENT: mass, normal bowel sounds, soft, other - On examination of the left lower abdominal wall erythema present associated with significant tissue hard in consistency on palpation. She may have an abscess.. ABSENT: distended, guarding, organolmegaly, rebound, tenderness Rectal exam: PRESENT: deferred Extremities exam: PRESENT: full ROM. ABSENT: calf tenderness, clubbing, pedal edema Neurological exam: PRESENT: alert, awake, oriented to person, oriented to place, oriented to time, oriented to situation, CN II-XII grossly intact. ABSENT: motor sensory deficit Psychiatric exam: PRESENT: appropriate affect, normal mood. ABSENT: homicidal ideation, suicidal ideation Skin exam: PRESENT: dry, intact, warm. ABSENT: cyanosis, rash Results Laboratory Results: 09/18/19 06:27 09/18/19 06:27 09/17/19 09/17/19 09/17/19 15:35 15:35 16:29 WBC 13.3 H RBC 4.33 Hgb 13.4 Hct 41.9 MCV 97 MCH 31.0 MCHC 32.0 RDW 14.4 H Plt Count 352 Seg Neutrophils % 78.7 H Sodium 130.0 L Potassium 4.2 Chloride 95 L Carbon Dioxide 24 Anion Gap 11 BUN 30 H Creatinine 1.64 H Est GFR ( Amer) 40 L Glucose 449 H* Calcium 9.2 Magnesium Total Bilirubin 1.1 AST 23 Alkaline Phosphatase 167 H Total Protein 6.3 Albumin 3.6 Triglycerides Cholesterol LDL Cholesterol Direct VLDL Cholesterol HDL Cholesterol TSH Urine Color YELLOW Urine Appearance SLIGHTLY-CLOUDY Urine pH 5.0 Ur Specific [place] 1.014 Urine Protein NEGATIVE Urine Glucose (UA) >=500 H Urine Ketones NEGATIVE Urine Blood LARGE H Urine Nitrite NEGATIVE Ur Leukocyte Esterase MODERATE H Urine WBC (Auto) 3 Urine RBC (Auto) 10 09/18/19 09/18/19 09/18/19 06:27 06:27 06:27 WBC 12.0 H RBC 3.92 Hgb 12.2 Hct 37.1 MCV 95 MCH 31.0 MCHC 32.8 RDW 14.2 H Plt Count 277 Seg Neutrophils % Sodium 132.9 L Potassium 4.4 Chloride 103 Carbon Dioxide 23 Anion Gap 7 BUN 22 H Creatinine 1.18 Est GFR ( Amer) 58 L Glucose 186 H Calcium 8.9 Magnesium 1.7 Total Bilirubin AST Alkaline Phosphatase Total Protein Albumin Triglycerides 175 H Cholesterol 183.45 LDL Cholesterol Direct 104 H VLDL Cholesterol 35.0 H HDL Cholesterol 41 TSH 4.63 Urine Color Urine Appearance Urine pH Ur Specific [place] Urine Protein Urine Glucose (UA) Urine Ketones Urine Blood Urine Nitrite Ur Leukocyte Esterase Urine WBC (Auto) Urine RBC (Auto) 09/17/19 15:35 Troponin I < 0.012 Impressions: Abdomen/Pelvis CT 09/17/19 18:43 IMPRESSION: Left pannus soft tissue injury with nonspecific radiodense material seen at the defect site. Surrounding inflammatory changes without abscess. Chronic and incidental intra-abdominal findings as above. Assessment and Plan - Diagnosis (1) Cellulitis of left abdominal wall Is this a current diagnosis for this admission?: Yes Plan: 09/18/2019-and is receiving levofloxacin and linezolid. Consultation with Dr. Floyd was requested. Wound cultures blood cultures are pending. CT abdominal pelvis did not indicate of any abscess. (2) Obesity Qualifiers: Obesity type: unspecified obesity type Obesity classification: adult class 3 (BMI >= 40) Serious obesity comorbidity presence: with serious comorbidity Body mass index: BMI 40.0-44.9 Qualified Code(s): E66.01 - Morbid (severe) obesity due to excess calories; Z68.41 - Body mass index (BMI) 40.0-44.9, adult Is this a current diagnosis for this admission?: No Plan: 09/18/2019-BMI is more than 43 diet exercise weight loss lifestyle modifications discussed with the patient. (3) Poorly controlled diabetes mellitus Is this a current diagnosis for this admission?: Yes Plan: 09/18/2019-hemoglobin A1c is 11.8 latest blood sugar is 186. Diet exercise weight loss lifestyle modifications discussed with the patient and a dietary consult will be requested. (4) Acute kidney injury (nontraumatic) Is this a current diagnosis for this admission?: Yes Plan: 09/18/2019-came in with a serum creatinine 1.64 and it is improved to 1.18 with IV fluids. Plan is to continue the IV fluids at this time. (5) Hypertension Qualifiers: Hypertension type: essential hypertension Qualified Code(s): I10 - Essential (primary) hypertension Is this a current diagnosis for this admission?: No Plan: 09/18/2019-patient has a history of chronic essential hypertension blood pressure today is 108/70 low normal. Plan is to continue IV fluids at this time. (6) Hyponatremia Is this a current diagnosis for this admission?: Yes Plan: 09/18/2019-admission serum sodium is 130 improved to 132.9 today with IV fluids. Blood sugar is 186. Hyponatremia most likely secondary to uncontrolled diabetes mellitus. - Plan Summary Summary: Patient is admitted to observation status on the medical floor where she will receive routine supportive and symptomatic cares. She will be treated with oral Levaquin and Zyvox. An initial dose of intravenous insulin will be given to normalize her blood sugar. She will receive IV fluids using lactated Ringer's at 250 mL/h x 12 hours. Before meals and at bedtime Accu-Cheks will be performed and sliding scale insulin will be used for hyperglycemia with a hypoglycemic protocol in place. She will use morphine sulfate 2 to 4 mg IV every 2 hours as needed for pain. She will use Ativan 1 mg IV every 4 hours as needed for anxiety or restlessness. She will be placed on a cardiac and diabetic restricted diet. A CBC, metabolic profile, magnesium level, hemoglobin A1c, thyroid profile, BNP and lipid profile will be obtained in the morning. The patient's home medications will be resumed, as appropriate, once her medication list has been verified and reconciled.
[2019-09-18] MEDS: RINGERS SOLUTION,LACTATED 1,000 ML IV PRN ×2 (10:14→22:10)
[2019-09-18] MEDS: LINEZOLID 600 MG TABLET PO SCH ×2 (10:14→22:10)
[2019-09-18] MEDS: INSULIN REG, HUMAN 100 UNIT/ML 3 ML VIAL (PYX) SUBCUT SCH ×4 (10:16→22:11)
[2019-09-18] MEDS: DOCUSATE SODIUM 100 MG CAPSULE PO SCH ×2 (10:17→17:32)
[2019-09-18] MEDS: APIXABAN 5 MG TABLET PO SCH ×2 (10:18→17:32)
[2019-09-18] MEDS: NYSTATIN/TRIAMCIN OINTMENT 15 GM TP SCH ×3 (10:18→17:32)
--- NOTE | 2019-09-18 10:18 | PDOC CONSULTATION ---
Consultation Consult Date: 09/18/19 Attending physician:: CHAD BUENO Provider Consulted: ERLIN WADE Consult reason:: ABDOMINAL WALL ABSCESS History of Present Illness Admission Date/PCP: 09/17/19 19:40 RENALDO DAMON DO History of Present Illness: SHOSHANA BOWMAN is a 54 year old female SHOSHANA BOWMAN is a 54 year old female who presented to the emergency room with a 2-week history of "skin sores". She admits to the gradual development of 3 areas of "skin sores" over the last 2 weeks. The first area erupted on her right thigh with redness being present constantly and gradually spreading becoming more tender and eventually opening to drain pus. The second area began on her left abdominal pannus region 1 week ago and has gradually increased in redness and tenderness. The third area is in her jean-labial groin and has been gradually developing over the last 2 days. She denies associated or accompanying signs and symptoms. She admits prior similar episodes of lesser degree. She has not identified any aggravating or ameliorating factors for her "skin sores". In the emergency room she was found to have a draining abscess of the right thigh and a new abscess of the left abdominal pannus which was incised and drained with packing placed. Her groin was evaluated and no abscess or obvious cellulitis was found, however intertrigo was noted. Patient's white blood count was 13,000 and her blood sugar was 449. She was started on IV antibiotic therapy with clindamycin and treated with insulin. She was subsequently admitted observation status for further evaluation and treatmen Past Medical History Cardiac Medical History: Reports: Atrial Fibrillation, Congestive Heart Failure, Hyperlipidema, Hypertension Denies: Coronary Artery Disease, DVT, Myocardial Infarction, Pulmonary Embolism Pulmonary Medical History: Reports: Asthma, Bronchitis Denies: Chronic Obstructive Pulmonary Disease (COPD), Pneumonia EENT Medical History: Denies: Cataracts, Ears - Hearing aids Neurological Medical History: Reports: Migraine Denies: Seizures Endocrine Medical History: Reports: Diabetes Mellitus Type 2 - Poorly compliant with medications and diet, Hypothyroidism, Obesity Denies: Diabetes Mellitus Type 1, Hyperthyroidism Renal/ Medical History: Reports: Chronic Kidney Disease Denies: Nephrolithiasis Malignancy Medical History: Reports: None GI Medical History: Reports: Gastroesophageal Reflux Disease Denies: Cirrhosis, Crohn's Disease, Hepatitis, Peptic Ulcer Disease, Ulcerative Colitis Musculoskeltal Medical History: Reports: Arthritis Denies: Gout Skin Medical History: Denies: Eczema, Psoriasis Psychiatric Medical History: Reports: Depression, Schizoaffective Disorder Denies: Alcohol Dependency, Substance Abuse, Tobacco Dependency Traumatic Medical History: Reports: None Hematology: Denies: Anemia, Bleeding Tendencies Infectious Medical History: Reports: None Past Surgical History Past Surgical History: Reports: Cholecystectomy, Tubal Ligation Denies: Hysterectomy Social History Lives with: Spouse/Significant other Smoking Status: Former Smoker Electronic Cigarette use?: No Frequency of Alcohol Use: None Hx Recreational Drug Use: No Drugs: None Hx Prescription Drug Abuse: No - Advance Directive Resuscitation Status: Full Code Family History Family History: CAD, CVA, DM, Hyperlipidemia, Hypertension, Malignancy, Thyroid Disfunction, Other - Asthma Parental Family History Reviewed: No Children Family History Reviewed: NA Sibling(s) Family History Reviewed.: NA Medication/Allergy Home Medications: Alprazolam [Xanax] 1 mg PO TIDP PRN MDD 4 MG 03/18/17 Amitriptyline HCl [Elavil 25 mg Tablet] 50 mg PO QHS 03/18/17 Apixaban [Eliquis 5 mg Tablet] 5 mg PO Q12 03/18/17 Zolpidem Tartrate [Ambien] 10 mg PO QHS 03/18/17 Brexpiprazole [Rexulti] 2 mg PO QHS 02/12/18 Desvenlafaxine [Desvenlafaxine ER] 50 mg PO DAILY 02/12/18 Solifenacin Succinate [Vesicare] 5 mg PO DAILY 02/12/18 Fluticasone Propionate [Flovent Hfa] 1 puff IH Q12 06/19/19 Fluticasone/Salmeterol [Advair 250-50 Diskus 14 Dose/Diskus] 1 inh IH Q12 0 06/19/19 Glipizide [Glipizide Xl] 10 mg PO [id number] 06/19/19 Oxycodone HCl/Acetaminophen [Percocet 5-325 mg Tablet] 1 tab PO Q8HP PRN 06/19/19 Prazosin HCl [Minipress] 2 mg PO QHS 06/19/19 Sitagliptin Phosphate [Januvia 50 mg Tablet] 100 mg PO DAILY 06/19/19 Tizanidine HCl 4 mg PO Q8 06/19/19 Furosemide [Lasix 40 mg Tablet] 40 mg PO DAILY #30 tablet 06/28/19 Levothyroxine Sodium [Synthroid 0.15 mg Tablet] 0.15 mg PO DAILY #30 tablet 06/28/19 Magnesium Oxide [Mag-Ox 400 mg Tablet] 400 mg PO DAILY 15 Days tablet 06/28/19 Metoprolol Succinate [Toprol Xl 25 mg Tab.sr] 50 mg PO Q12 30 Days 06/28/19 Levofloxacin [Levaquin 750 mg Tablet] 750 mg PO DAILY #4 tablet 08/10/19 Dexamethasone [Decadron 4 Mg Tablet] 4 mg PO DAILY #3 tablet 09/01/19 Lidocaine [Lidoderm 5% (700 mg) Transdermal Patch] 1 patch TP DAILY #30 adh..patch 09/01/19 Allergies/Adverse Reactions: tramadol Allergy (Intermediate, Verified 03/13/19 17:06) AMS Penicillins Allergy (Mild, Verified 03/13/19 17:06) rash Sulfa (Sulfonamide Antibiotics) Allergy (Mild, Verified 03/13/19 17:06) rash aspirin Allergy (Verified 03/13/19 17:06) NO ASA Review of Systems Constitutional: PRESENT: as per HPI, fatigue Eyes: ABSENT: as per HPI, visual disturbances, other Ears: ABSENT: as per HPI, hearing changes, other Nose, Mouth, and Throat: ABSENT: as per HPI, headache(s), mouth pain, sore throat, vertigo, other Breasts: ABSENT: as per HPI, other Cardiovascular: ABSENT: as per HPI, chest pain, dyspnea on exertion, edema, ort hropnea, palpitations, other Respiratory: ABSENT: as per HPI, cough, dyspnea, hemoptysis, sputum, other Gastrointestinal: ABSENT: as per HPI, abdominal pain, bloating, coffee ground emesis, constipation, diarrhea, dysphagia, heartburn, hematemesis, hematochezia, melena, nausea, vomiting, other Genitourinary: ABSENT: as per HPI, difficulty urinating, dysuria, hematuria, nocturia, other Integumentary: PRESENT: wounds Neurological: ABSENT: as per HPI, abnormal gait, abnormal movements, abnormal speech, confusion, convulsions, dizziness, focal weakness, frequent falls, lack of coordination, memory loss, numbness, paresthesias, restless legs, syncope, tingling, tremor(s), vertigo, weakness, other Psychiatric: ABSENT: as per HPI, anxiety, depression, hallucinations, homidical ideation, suicidal ideation, other Endocrine: ABSENT: as per HPI, cold intolerance, flushing, heat intolerance, menstrual abnormalities, polydipsia, polyphagia, polyuria, other Hematologic/Lymphatic: ABSENT: as per HPI, easy bleeding, easy bruising, lymphadenopathy, other Allergic/Immunologic: ABSENT: as per HPI, seasonal rhinorrhea, other Physical Exam Vital Signs: Temp Pulse Resp BP Pulse Ox 98.4 F 60 17 82/51 L 91 L 09/18/19 08:00 09/18/19 08:00 09/18/19 08:00 09/18/19 08:00 09/18/19 08:00 Intake & Output 09/17/19 09/18/19 09/19/19 06:59 06:59 06:59 Intake Total 1120 Balance 1120 Weight 112.1 kg General appearance: PRESENT: disheveled Head exam: PRESENT: normocephalic Eye exam: PRESENT: EOMI Mouth exam: PRESENT: moist Teeth exam: PRESENT: poor dentation Neck exam: PRESENT: carotid bruit Respiratory exam: PRESENT: clear to auscultation denis Cardiovascular exam: PRESENT: RRR Breast: PRESENT: Normal GI/Abdominal exam: PRESENT: soft, other - MULTIPLE SKIN ABSCESS AND ABD PANNUS AND THIGH. Rectal exam: PRESENT: deferred Musculoskeletal exam: PRESENT: full ROM Neurological exam: PRESENT: alert, awake Skin exam: PRESENT: dry Results Laboratory Results: 09/18/19 06:27 09/18/19 06:27 09/17/19 09/17/19 09/17/19 15:35 15:35 16:29 WBC 13.3 H RBC 4.33 Hgb 13.4 Hct 41.9 MCV 97 MCH 31.0 MCHC 32.0 RDW 14.4 H Plt Count 352 Seg Neutrophils % 78.7 H Sodium 130.0 L Potassium 4.2 Chloride 95 L Carbon Dioxide 24 Anion Gap 11 BUN 30 H Creatinine 1.64 H Est GFR ( Amer) 40 L Glucose 449 H* Calcium 9.2 Magnesium Total Bilirubin 1.1 AST 23 Alkaline Phosphatase 167 H Total Protein 6.3 Albumin 3.6 Triglycerides Cholesterol LDL Cholesterol Direct VLDL Cholesterol HDL Cholesterol TSH Urine Color YELLOW Urine Appearance SLIGHTLY-CLOUDY Urine pH 5.0 Ur Specific [place] 1.014 Urine Protein NEGATIVE Urine Glucose (UA) >=500 H Urine Ketones NEGATIVE Urine Blood LARGE H Urine Nitrite NEGATIVE Ur Leukocyte Esterase MODERATE H Urine WBC (Auto) 3 Urine RBC (Auto) 10 09/18/19 09/18/19 09/18/19 06:27 06:27 06:27 WBC 12.0 H RBC 3.92 Hgb 12.2 Hct 37.1 MCV 95 MCH 31.0 MCHC 32.8 RDW 14.2 H Plt Count 277 Seg Neutrophils % Sodium 132.9 L Potassium 4.4 Chloride 103 Carbon Dioxide 23 Anion Gap 7 BUN 22 H Creatinine 1.18 Est GFR ( Amer) 58 L Glucose 186 H Calcium 8.9 Magnesium 1.7 Total Bilirubin AST Alkaline Phosphatase Total Protein Albumin Triglycerides 175 H Cholesterol 183.45 LDL Cholesterol Direct 104 H VLDL Cholesterol 35.0 H HDL Cholesterol 41 TSH 4.63 Urine Color Urine Appearance Urine pH Ur Specific [place] Urine Protein Urine Glucose (UA) Urine Ketones Urine Blood Urine Nitrite Ur Leukocyte Esterase Urine WBC (Auto) Urine RBC (Auto) 09/17/19 15:35 Troponin I < 0.012 Impressions: Abdomen/Pelvis CT 09/17/19 18:43 IMPRESSION: Left pannus soft tissue injury with nonspecific radiodense material seen at the defect site. Surrounding inflammatory changes without abscess. Chronic and incidental intra-abdominal findings as above. Assessment & Plan - Plan Summary Plan Summary: IMPRESSION, MULTIPLE SKIN ABSCESSES ABDOMINAL PANNUS, AND RIGHT THIGH PLAN ON DEBRIDEMENT IN OR
[2019-09-18] MEDS ORDERED: FENTANYL CITRATE INJ/PF 100 MCG/2 ML AMPUL ONE ×2 (15:01→17:22)
[2019-09-18] MEDS ORDERED: PROPOFOL INJ 200 MG/20 ML VIAL IV ONE (15:01)
[2019-09-18] MEDS ORDERED: ONDANSETRON HCL INJ/PF 4 MG/2 ML SDV ONE (15:01)
[2019-09-18] MEDS ORDERED: MIDAZOLAM 2 MG/2 ML INJ ONE (15:01)
[2019-09-18] MEDS ORDERED: DEXMEDETOMIDINE INJ 80 MCG/20 ML VIAL IV ONE (17:22)
--- NOTE | 2019-09-18 17:46 | Operative Report ---
Nonrecallable Operative Report DATE OF SURGERY: 09/18/19 PREOPERATIVE DIAGNOSIS: Left abdominal wall abscess and right thigh abscess POSTOPERATIVE DIAGNOSIS: Left abdominal wall abscess and right thigh abscess OPERATION: Excision of left abdominal wall abscess and right thigh abscess SURGEON: ERLIN WADE ANESTHESIA: LMAC TISSUE REMOVED OR ALTERED: Skin left abdominal wall right thigh COMPLICATIONS: None INTRAOPERATIVE FINDINGS: 25 cc PROCEDURE: Patient was brought to the operating room awake alert stable condition placed on the operative table supine position given IV sedation and local MAC anesthesia. After adequate prep and drape of the right thigh and the left abdominal wall site verification the procedure commenced. Elliptical incision was made around a 4 cm abscess on the left abdominal wall pannus dissection was carried down through subcutaneous tissue with Bovie cautery to we reached the deep subcutaneous fat and excised the abscess cavity in an elliptical fashion. The wound bed was clean and there was no spillage of pus however because of the surrounding edema I elected to leave the wound open I irrigated the depths of the wound down to the abdominal wall muscles with normal saline. And obtained good hemostasis. Attention was then turned to the right anterior medial thigh over the femoral triangle elliptical incision was made around the 2 cm abscess dissection was carried down through subtenons tissue with Bovie cautery and we excise the abscess. Again the wound edges were clean without evidence of drainage of pus and hemostasis was obtained with Bovie cautery both wounds were irrigated with normal saline suctioned dry they were packed with a Betadine soaked sponge. Sterile dressing was applied which completed the procedure estimated blood loss for the procedure was 25 cc sponge needle counts correct x2 the patient was then transferred back to recovery in stable condition no complications
[2019-09-18] MEDS ORDERED: DIPHENHYDRAMINE HCL 50 MG/ML VIAL IV PRN (17:57)
[2019-09-18] MEDS ORDERED: PROMETHAZINE HCL INJ 25 MG/1 ML VIAL IV PRN ×2 (17:57)
[2019-09-18] MEDS ORDERED: FENTANYL CITRATE INJ/PF 100 MCG/2 ML AMPUL IV PRN ×3 (17:57)
[2019-09-18] MEDS ORDERED: MEPERIDINE HCL/PF INJ 25 MG/1 ML DISP.SYRIN IV PRN (17:57)
[2019-09-18] MEDS ORDERED: MORPHINE SULFATE 10 MG/ML INJ IV PRN (17:57)
[2019-09-18] MEDS ORDERED: ONDANSETRON HCL INJ/PF 4 MG/2 ML SDV IV PRN (17:57)
[2019-09-18] MEDS ORDERED: OXYCODONE-ACETAMINOPHEN 5-325 MG TABLET PO PRN ×2 (17:57)
[2019-09-18] MEDS: MELATONIN 5 MG TABLET PO PRN (22:10)
[2019-09-18] MEDS: LEVOFLOXACIN 750 MG TABLET PO SCH (22:10)
[2019-09-18] MEDS: DOXAZOSIN MESYLATE 2 MG TABLET PO SCH (22:11)
[2019-09-19] MEDS: PANTOPRAZOLE SODIUM 40 MG TABLET.DR PO SCH (05:52)
[2019-09-19 06:36] LABS: ABSOLUTE BASOPHILS # (AUTO) 0.1 10^3/uL (0.0-0.2); ABSOLUTE EOSINOPHILS # (AUTO) 0.1 10^3/uL (0.0-0.6); ABSOLUTE LYMPHOCYTES (AUTO) 2.1 10^3/uL (0.5-4.7); ABSOLUTE MONOCYTES (AUTO) 0.5 10^3/uL (0.1-1.4); ABSOLUTE NEUT (AUTO) 7.7 10^3/uL (1.7-8.2); BASOPHILS % (AUTO) 0.7 % (0-2); EOSINOPHILS % (AUTO) 1.4 % (0-6); HEMATOCRIT 36.3 % (36.0-47.0); HEMOGLOBIN 11.7 g/dL (12.0-15.5); LYMPHOCYTES % (AUTO) 19.7 % (13-45); MEAN CORPUSCULAR HGB CONC 32.3 g/dL (32.0-36.0); MEAN CORPUSCULAR VOLUME 96 fl (80-97); MONOCYTES % (AUTO) 5.1 % (3-13); PLATELET COUNT 276 10^3/uL (150-450); RED BLOOD COUNT 3.78 10^6/uL (3.72-5.28); RED CELL DISTRIBUTION WIDTH 14.1 % (11.5-14.0); SEGMENTED NEUTROPHILS % (AUTO) 73.1 % (42-78); TOTAL CELLS COUNTED % (AUTO) 100 %; WHITE BLOOD COUNT 10.6 10^3/uL (4.0-10.5)
[2019-09-19 07:07] LABS: ALBUMIN 2.9 g/dL (3.5-5.0); ALKALINE PHOSPHATASE 118 U/L (38-126); ANION GAP 10 (5-19); ASPARTATE AMINO TRANSFERASE 20 U/L (14-36); BILIRUBIN,DIRECT 0.2 mg/dL (0.0-0.4); BILIRUBIN,TOTAL 0.9 mg/dL (0.2-1.3); BLOOD UREA NITROGEN 13 mg/dL (7-20); CALCIUM 9.1 mg/dL (8.4-10.2); CARBON DIOXIDE 21 mmol/L (22-30); CHLORIDE 103 mmol/L (98-107); GLUCOSE 123 mg/dL (75-110); POTASSIUM 4.6 mmol/L (3.6-5.0); TOTAL PROTEIN 5.4 g/dL (6.3-8.2)
[2019-09-19] MEDS: INSULIN REG, HUMAN 100 UNIT/ML 3 ML VIAL (PYX) SUBCUT SCH ×4 (07:34→21:51)
[2019-09-19 08:25] LABS: ALBUMIN 2.9 g/dL (3.5-5.0); ALKALINE PHOSPHATASE 125 U/L (38-126); ANION GAP 8 (5-19); ASPARTATE AMINO TRANSFERASE 23 U/L (14-36); BILIRUBIN,DIRECT 0.1 mg/dL (0.0-0.4); BILIRUBIN,TOTAL 0.8 mg/dL (0.2-1.3); BLOOD UREA NITROGEN 13 mg/dL (7-20); CALCIUM 9.2 mg/dL (8.4-10.2); CARBON DIOXIDE 24 mmol/L (22-30); CHLORIDE 102 mmol/L (98-107); GLUCOSE 147 mg/dL (75-110); POTASSIUM 4.8 mmol/L (3.6-5.0); TOTAL PROTEIN 5.7 g/dL (6.3-8.2)
[2019-09-19] MEDS: OXYCODONE-ACETAMINOPHEN 5-325 MG TABLET PO PRN (08:55)
[2019-09-19] MEDS ORDERED: (PENDING PHARMACY ID) (Brexpiprazole [Rexulti] 2 MG) PO SCH ×2 (09:00→22:00)
[2019-09-19] MEDS: METOPROLOL SUCCINATE 50 MG TAB.SR.24H PO SCH ×2 (09:55→21:50)
[2019-09-19] MEDS: VENLAFAXINE HCL 75 MG CAP.SR.24H PO SCH (09:56)
[2019-09-19] MEDS: FUROSEMIDE 40 MG TABLET PO SCH (09:56)
[2019-09-19] MEDS: APIXABAN 5 MG TABLET PO SCH ×2 (09:57→17:02)
[2019-09-19] MEDS: PREGABALIN 75 MG CAPSULE PO SCH ×2 (09:57→21:42)
[2019-09-19] MEDS: DOCUSATE SODIUM 100 MG CAPSULE PO SCH ×2 (09:57→17:02)
--- NOTE | 2019-09-19 09:57 | PDOC PROGRESS REPORT ---
Subjective Progress Note for:: 09/19/19 Subjective:: 54 year old female who presented to the emergency room with a 2-week history of "skin sores". She admits to the gradual development of 3 areas of "skin sores" over the last 2 weeks. The first area erupted on her right thigh with redness being present constantly and gradually spreading becoming more tender and eventually opening to drain pus. The second area began on her left abdominal pannus region 1 week ago and has gradually increased in redness and tenderness. The third area is in her jean-labial groin and has been gradually developing over the last 2 days. She denies associated or accompanying signs and symptoms. She admits prior similar episodes of lesser degree. She has not identified any aggravating or ameliorating factors for her "skin sores". In the emergency room she was found to have a draining abscess of the right thigh and a new abscess of the left abdominal pannus which was incised and drained with packing placed. Her groin was evaluated and no abscess or obvious cellulitis was found, however intertrigo was noted. Patient's white blood count was 13,000 and her blood sugar was 449. She was started on IV antibiotic therapy with clindamycin and treated with insulin. She was subsequently admitted observation status for further evaluation and treatment. 09/18/19-no acute events the last 24 hours. WBC count improved to 12,000. On examination for me looks like patient has abdominal wall abscess. Dr. Floyd is going to see the patient today for further recommendations. Plan is to continue the IV antibiotic therapy and waiting for the blood cultures and wound cultures at this time. 09/19/19-no acute events in the last 24 hours. Patient went for incision and drainage of the abdominal wall abscesses and thigh abscess. Wound cultures came back positive for gram-positive cocci in clusters presently on levofloxacin and linezolid. Reason For Visit: ACUTE KIDNEY INJURY, CELLULITIS WITH ABSCESS Physical Exam Vital Signs: Temp Pulse Resp BP Pulse Ox 97.9 F 56 L 16 100/51 L 93 09/19/19 08:00 09/19/19 08:00 09/19/19 08:00 09/19/19 08:00 09/19/19 08:00 Intake & Output 09/18/19 09/19/19 09/20/19 06:59 06:59 06:59 Intake Total 2120 3600 1000 Output Total 20 Balance 0 3580 1000 Weight 112.1 kg 112.1 kg General appearance: PRESENT: no acute distress, morbidly obese Head exam: PRESENT: atraumatic Eye exam: PRESENT: PERRLA Mouth exam: PRESENT: moist, tongue midline Teeth exam: PRESENT: poor dentation Neck exam: PRESENT: lymphadenopathy Respiratory exam: PRESENT: clear to auscultation denis. ABSENT: rales, rhonchi, wheezes Pulses: PRESENT: normal dorsalis pedis pul GI/Abdominal exam: PRESENT: normal bowel sounds, soft, tenderness, other - Dressing present over the left lower abdomen covering the incision site. ABSENT: distended, guarding, mass, organolmegaly, rebound Rectal exam: PRESENT: deferred Extremities exam: PRESENT: full ROM. ABSENT: calf tenderness, clubbing, pedal edema Neurological exam: PRESENT: alert, awake, oriented to person, oriented to place, oriented to time, oriented to situation, CN II-XII grossly intact. ABSENT: motor sensory deficit Psychiatric exam: PRESENT: appropriate affect, normal mood. ABSENT: homicidal ideation, suicidal ideation Results Laboratory Results: 09/19/19 05:00 09/19/19 07:43 09/19/19 09/19/19 09/19/19 05:00 05:00 07:43 WBC 10.6 H RBC 3.78 Hgb 11.7 L Hct 36.3 MCV 96 MCH 31.0 MCHC 32.3 RDW 14.1 H Plt Count 276 Seg Neutrophils % 73.1 Sodium 134.4 L 133.8 L Potassium 4.6 4.8 Chloride 103 102 Carbon Dioxide 21 L 24 Anion Gap 10 8 BUN 13 13 Creatinine 0.99 1.03 Est GFR ( Amer) > 60 > 60 Glucose 123 H 147 H Calcium 9.1 9.2 Magnesium 1.7 1.7 Total Bilirubin 0.9 0.8 AST 20 23 Alkaline Phosphatase 118 125 Total Protein 5.4 L 5.7 L Albumin 2.9 L 2.9 L 09/17/19 17:20 Blood Blood Culture (PCR) - Final 09/17/19 15:35 Troponin I < 0.012 Impressions: Abdomen/Pelvis CT 09/17/19 18:43 IMPRESSION: Left pannus soft tissue injury with nonspecific radiodense material seen at the defect site. Surrounding inflammatory changes without abscess. Chronic and incidental intra-abdominal findings as above. Assessment and Plan - Diagnosis (1) Cellulitis of left abdominal wall Is this a current diagnosis for this admission?: Yes Plan: 09/18/2019-and is receiving levofloxacin and linezolid. Consultation with Dr. Floyd was requested. Wound cultures blood cultures are pending. CT abdominal pelvis did not indicate of any abscess. 09/19/2019-patient has abdominal wall abscess incision and drainage was done by Dr. Flyod yesterday. Wound cultures came back positive for gram-positive cocci in clusters. (2) Obesity Qualifiers: Obesity type: unspecified obesity type Obesity classification: adult class 3 (BMI >= 40) Serious obesity comorbidity presence: with serious comorbidity Body mass index: BMI 40.0-44.9 Qualified Code(s): E66.01 - Morbid (severe) obesity due to excess calories; Z68.41 - Body mass index (BMI) 40.0-44.9, adult Is this a current diagnosis for this admission?: No Plan: 09/18/2019-BMI is more than 43 diet exercise weight loss lifestyle modifications discussed with the patient. (3) Poorly controlled diabetes mellitus Is this a current diagnosis for this admission?: Yes Plan: 09/18/2019-hemoglobin A1c is 11.8 latest blood sugar is 186. Diet exercise weight loss lifestyle modifications discussed with the patient and a dietary consult will be requested. 09/19/2019-latest blood sugar status around 150. Plan is to continue insulin sliding scale before meals and at bedtime. (4) Acute kidney injury (nontraumatic) Is this a current diagnosis for this admission?: Yes Plan: 09/18/2019-came in with a serum creatinine 1.64 and it is improved to 1.18 with IV fluids. Plan is to continue the IV fluids at this time. 09/19/19-patient came in with a serum creatinine of 1.64 improved to 0.99 today. He acute kidney injury is resolved. (5) Hypertension Qualifiers: Hypertension type: essential hypertension Qualified Code(s): I10 - Essential (primary) hypertension Is this a current diagnosis for this admission?: No Plan: 09/18/2019-patient has a history of chronic essential hypertension blood pressure today is 108/70 low normal. Plan is to continue IV fluids at this time. (6) Hyponatremia Is this a current diagnosis for this admission?: Yes Plan: 09/18/2019-admission serum sodium is 130 improved to 132.9 today with IV fluids. Blood sugar is 186. Hyponatremia most likely secondary to uncontrolled diabetes mellitus. 09/19/2019-serum sodium is 134 today is improving and hyponatremia is resolving. - Plan Summary Summary: Patient is admitted to observation status on the medical floor where she will receive routine supportive and symptomatic cares. She will be treated with oral Levaquin and Zyvox. An initial dose of intravenous insulin will be given to normalize her blood sugar. She will receive IV fluids using lactated Ringer's at 250 mL/h x 12 hours. Before meals and at bedtime Accu-Cheks will be per formed and sliding scale insulin will be used for hyperglycemia with a hypoglycemic protocol in place. She will use morphine sulfate 2 to 4 mg IV every 2 hours as needed for pain. She will use Ativan 1 mg IV every 4 hours as needed for anxiety or restlessness. She will be placed on a cardiac and diabetic restricted diet. A CBC, metabolic profile, magnesium level, hemoglobin A1c, thyroid profile, BNP and lipid profile will be obtained in the morning. The patient's home medications will be resumed, as appropriate, once her medication list has been verified and reconciled.
[2019-09-19] MEDS: LINEZOLID 600 MG TABLET PO SCH ×2 (09:58→21:45)
[2019-09-19] MEDS ORDERED: METOPROLOL SUCCINATE 25 MG TAB.SR.24H PO SCH (10:00)
[2019-09-19] MEDS ORDERED: (PENDING PHARMACY ID) (Prazosin Hcl [Minipress] 2 MG) PO SCH ×2 (10:00→22:00)
[2019-09-19] MEDS ORDERED: (PENDING PHARMACY ID) (Solifenacin Succinate [Vesicare] 10 MG) PO SCH (10:00)
[2019-09-19] MEDS ORDERED: (PENDING PHARMACY ID) (Pregabalin [Lyrica] 225 MG) PO SCH (10:00)
[2019-09-19] MEDS ORDERED: LISINOPRIL 5 MG TABLET PO SCH (10:00)
[2019-09-19] MEDS: NYSTATIN/TRIAMCIN OINTMENT 15 GM TP SCH ×3 (10:02→17:04)
[2019-09-19] MEDS: TOLTERODINE TARTRATE 1 MG TABLET PO SCH ×2 (10:02→21:45)
[2019-09-19] MEDS ORDERED: LIDOCAINE 1% INJ-PF (10 MG/ML) 30 ML SDV INJ ONE (12:30)
--- NOTE | 2019-09-19 13:16 | PDOC PROGRESS REPORT ---
Subjective Progress Note for:: 09/19/19 Reason For Visit: ACUTE KIDNEY INJURY, CELLULITIS WITH ABSCESS Patient essentially noncommunicative. Physical Exam Vital Signs: Temp Pulse Resp BP Pulse Ox 98.2 F 103 H 16 96/44 L 92 09/19/19 12:00 09/19/19 12:00 09/19/19 12:00 09/19/19 12:00 09/19/19 12:00 Intake & Output 09/18/19 09/19/19 09/20/19 06:59 06:59 06:59 Intake Total 2120 3600 1000 Output Total 20 Balance 2120 3580 1000 Weight 112.1 kg 112.1 kg General appearance: PRESENT: no acute distress GI/Abdominal exam: PRESENT: other - Abdominal wall packing in right inner thigh packing removed. No foul smell, active drainage. Wounds are clean. Wounds repacked very easily and well tolerated at bedside. Musculoskeletal exam: PRESENT: other - Left axilla with acute abscess spontaneously draining Results Laboratory Results: 09/19/19 05:00 09/19/19 07:43 09/19/19 09/19/19 09/19/19 05:00 05:00 07:43 WBC 10.6 H RBC 3.78 Hgb 11.7 L Hct 36.3 MCV 96 MCH 31.0 MCHC 32.3 RDW 14.1 H Plt Count 276 Seg Neutrophils % 73.1 Sodium 134.4 L 133.8 L Potassium 4.6 4.8 Chloride 103 102 Carbon Dioxide 21 L 24 Anion Gap 10 8 BUN 13 13 Creatinine 0.99 1.03 Est GFR ( Amer) > 60 > 60 Glucose 123 H 147 H Calcium 9.1 9.2 Magnesium 1.7 1.7 Total Bilirubin 0.9 0.8 AST 20 23 Alkaline Phosphatase 118 125 Total Protein 5.4 L 5.7 L Albumin 2.9 L 2.9 L 09/17/19 17:20 Blood Blood Culture (PCR) - Final 09/17/19 15:35 Troponin I < 0.012 Impressions: Abdomen/Pelvis CT 09/17/19 18:43 IMPRESSION: Left pannus soft tissue injury with nonspecific radiodense material seen at the defect site. Surrounding inflammatory changes without abscess. Chronic and incidental intra-abdominal findings as above. Assessment & Plan - Diagnosis (1) Cutaneous abscess of abdominal wall Is this a current diagnosis for this admission?: Yes Plan: Impression: Patient is 1 day status post tissue debridement of anterior abdominal wall and right inner thigh soft tissue infections, looking good, no foul smell, or drainage; septic source contained; growing gram-positive cocci on Zosyn and Levaquin; new left axillary abscess requiring I&D Recommendations: 1. We will perform I&D at bedside of left axillary abscess 2. Will initiate local wound care with nursing staff 3. We will follow-up on antimicrobial sensitivities. - Time Time Spent: 30 to 50 Minutes
[2019-09-19] MEDS: TIZANIDINE HCL 4 MG TABLET PO SCH ×2 (13:32→21:49)
[2019-09-19] MEDS ORDERED: NORMAL SALINE 1000 ML 1,000 ML IV ONE (16:05)
[2019-09-19] MEDS: NORMAL SALINE 1000 ML 1,000 ML IV PRN (20:46)
[2019-09-19] MEDS: AMITRIPTYLINE HCL 25 MG TABLET PO SCH (21:42)
[2019-09-19] MEDS: DIPHENHYDRAMINE HCL 25 MG CAPSULE PO SCH (21:43)
[2019-09-19] MEDS: ZOLPIDEM TARTRATE 5 MG TABLET PO SCH (21:43)
[2019-09-19] MEDS: DOXAZOSIN MESYLATE 2 MG TABLET PO SCH (21:44)
[2019-09-19] MEDS: LEVOFLOXACIN 750 MG TABLET PO SCH (21:49)
[2019-09-19] MEDS ORDERED: DOXAZOSIN MESYLATE 4 MG TABLET PO SCH (22:00)
[2019-09-19] MEDS ORDERED: (PENDING PHARMACY ID) (Zolpidem Tartrate [Ambien] 10 MG) PO SCH (22:00)
[2019-09-20] MEDS: PANTOPRAZOLE SODIUM 40 MG TABLET.DR PO SCH (05:22)
[2019-09-20] MEDS: OXYCODONE-ACETAMINOPHEN 5-325 MG TABLET PO PRN ×2 (05:22→16:12)
[2019-09-20] MEDS: TIZANIDINE HCL 4 MG TABLET PO SCH ×3 (05:22→21:34)
[2019-09-20 05:42] LABS: ABSOLUTE BASOPHILS # (AUTO) 0.1 10^3/uL (0.0-0.2); ABSOLUTE EOSINOPHILS # (AUTO) 0.2 10^3/uL (0.0-0.6); ABSOLUTE LYMPHOCYTES (AUTO) 2.8 10^3/uL (0.5-4.7); ABSOLUTE MONOCYTES (AUTO) 0.5 10^3/uL (0.1-1.4); ABSOLUTE NEUT (AUTO) 6.2 10^3/uL (1.7-8.2); BASOPHILS % (AUTO) 1.1 % (0-2); EOSINOPHILS % (AUTO) 2.2 % (0-6); HEMATOCRIT 33.3 % (36.0-47.0); HEMOGLOBIN 10.8 g/dL (12.0-15.5); LYMPHOCYTES % (AUTO) 28.5 % (13-45); MEAN CORPUSCULAR HEMOGLOBIN 31.3 pg (27.0-33.4); MEAN CORPUSCULAR HGB CONC 32.5 g/dL (32.0-36.0); MEAN CORPUSCULAR VOLUME 96 fl (80-97); MONOCYTES % (AUTO) 5.1 % (3-13); PLATELET COUNT 314 10^3/uL (150-450); RED BLOOD COUNT 3.47 10^6/uL (3.72-5.28); SEGMENTED NEUTROPHILS % (AUTO) 63.1 % (42-78); TOTAL CELLS COUNTED % (AUTO) 100 %; WHITE BLOOD COUNT 9.9 10^3/uL (4.0-10.5)
[2019-09-20 06:04] LABS: ALBUMIN 2.6 g/dL (3.5-5.0); ALKALINE PHOSPHATASE 107 U/L (38-126); ANION GAP 6 (5-19); ASPARTATE AMINO TRANSFERASE 16 U/L (14-36); BILIRUBIN,TOTAL 0.6 mg/dL (0.2-1.3); BLOOD UREA NITROGEN 10 mg/dL (7-20); CALCIUM 8.5 mg/dL (8.4-10.2); CARBON DIOXIDE 28 mmol/L (22-30); CHLORIDE 99 mmol/L (98-107); GLUCOSE 127 mg/dL (75-110); POTASSIUM 4.3 mmol/L (3.6-5.0); TOTAL PROTEIN 5.1 g/dL (6.3-8.2)
[2019-09-20] MEDS: NORMAL SALINE 1000 ML 1,000 ML IV PRN ×2 (06:45→18:36)
--- NOTE | 2019-09-20 07:22 | Operative Report ---
Operative Report DATE OF SURGERY: 09/20/19 PREOPERATIVE DIAGNOSIS: 1. Multiple left axillary and left hand abscesses. 2. Diabetes mellitus POSTOPERATIVE DIAGNOSIS: Same OPERATION: 1. Excisional debridement of left axillary abscess x2. 2. Excisional debridement of left wrist abscess SURGEON: FLORENCE COELHO ANESTHESIA: Local TISSUE REMOVED OR ALTERED: tissue INTRAOPERATIVE FINDINGS: See below PROCEDURE: The procedure performed at bedside in room 419. The left arm was abducted, left axilla shaved of hair, prepped with Betadine. Surgical timeout conducted. There were 2 abscesses 1 in the lateral aspect of the axilla and one in the medial aspect of the axilla. Both were anesthetized 1% plain lidocaine. Both were debrided with excisions of skin in an elliptical fashion approximately 1- 1/2 x 2 cm each. Subcutaneous tissue was debrided with curette and index finger. Wounds irrigated with peroxide and packed with portions of gauze. The identical procedure was performed over the dorsal aspect of the left wrist. This abscess was approximately 1 cm in diameter. It was excisionally excised, debrided with hemostats, irrigated and packed with gauze. 4 x 4's applied. Patient tolerated procedure well.
[2019-09-20] MEDS: INSULIN REG, HUMAN 100 UNIT/ML 3 ML VIAL (PYX) SUBCUT SCH ×4 (08:09→21:40)
[2019-09-20] MEDS: VENLAFAXINE HCL 75 MG CAP.SR.24H PO SCH (09:30)
[2019-09-20] MEDS: TOLTERODINE TARTRATE 1 MG TABLET PO SCH ×2 (09:31→21:39)
[2019-09-20] MEDS: DOCUSATE SODIUM 100 MG CAPSULE PO SCH ×2 (09:31→18:36)
[2019-09-20] MEDS: LINEZOLID 600 MG TABLET PO SCH ×2 (09:31→21:39)
[2019-09-20] MEDS: PREGABALIN 75 MG CAPSULE PO SCH ×2 (09:31→21:36)
[2019-09-20] MEDS: APIXABAN 5 MG TABLET PO SCH ×2 (09:32→18:35)
[2019-09-20] MEDS: FUROSEMIDE 40 MG TABLET PO SCH (09:32)
[2019-09-20] MEDS: NYSTATIN/TRIAMCIN OINTMENT 15 GM TP SCH ×3 (09:40→18:47)
[2019-09-20] MEDS: METOPROLOL SUCCINATE 50 MG TAB.SR.24H PO SCH ×2 (12:38→21:39)
--- NOTE | 2019-09-20 14:46 | PDOC PROGRESS REPORT ---
Subjective Progress Note for:: 09/20/19 Subjective:: No adverse events overnight. No new complaints. Vital signs been stable. She does not know very much about her diabetes management. She kept uncovering the bandage on her left arm from her incision and debridement yesterday and we had to keep reminding her to leave it alone. Reason For Visit: ACUTE KIDNEY INJURY, CELLULITIS WITH ABSCESS Physical Exam Vital Signs: Temp Pulse Resp BP Pulse Ox 97.4 F 64 19 94/45 L 96 09/20/19 11:50 09/20/19 11:50 09/20/19 11:50 09/20/19 11:50 09/20/19 11:50 Intake & Output 09/19/19 09/20/19 09/21/19 06:59 06:59 06:59 Intake Total 3600 3358 Output Total 20 850 Balance 3580 2508 Weight 112.1 kg 112.1 kg General appearance: PRESENT: no acute distress, cooperative, disheveled, morbidly obese Teeth exam: PRESENT: edentulous Respiratory exam: PRESENT: clear to auscultation denis, symmetrical, unlabored. ABSENT: accessory muscle use, chest wall tenderness, crackles, prolonged expiratory phas, rhonchi, tachypnea, wheezes Cardiovascular exam: PRESENT: RRR, +S1, +S2 Pulses: PRESENT: normal carotid pulses Vascular exam: PRESENT: normal capillary refill GI/Abdominal exam: PRESENT: normal bowel sounds, soft, other - Bandage over drained abscess on abdominal wall. ABSENT: distended, guarding, tenderness Extremities exam: PRESENT: other - Bandage over drained abscess on her right thigh and left forearm. ABSENT: clubbing, pedal edema Musculoskeletal exam: PRESENT: normal inspection. ABSENT: deformity Neurological exam: PRESENT: awake, oriented to person, oriented to place, oriented to situation - Somewhat Psychiatric exam: PRESENT: flat affect Results Laboratory Results: 09/20/19 05:09 09/20/19 05:09 09/20/19 09/20/19 05:09 05:09 WBC 9.9 RBC 3.47 L Hgb 10.8 L Hct 33.3 L MCV 96 MCH 31.3 MCHC 32.5 RDW 14.0 Plt Count 314 Seg Neutrophils % 63.1 Sodium 133.0 L Potassium 4.3 Chloride 99 Carbon Dioxide 28 Anion Gap 6 BUN 10 Creatinine 0.93 Est GFR ( Amer) > 60 Glucose 127 H Calcium 8.5 Magnesium 1.6 Total Bilirubin 0.6 AST 16 Alkaline Phosphatase 107 Total Protein 5.1 L Albumin 2.6 L 09/17/19 17:20 Blood Blood Culture (PCR) - Final 09/17/19 17:20 Blood Blood Culture - Final Micrococcus Species 09/17/19 17:08 Abdomen - Abscess Gram Stain - Final 09/17/19 17:08 Abdomen - Abscess Wound Culture - Final Mrsa (Meth Resis Staph Aureus) Group B Beta Streptococcus Prevotella Species 09/17/19 15:35 Troponin I < 0.012 Impressions: Abdomen/Pelvis CT 09/17/19 18:43 IMPRESSION: Left pannus soft tissue injury with nonspecific radiodense material seen at the defect site. Surrounding inflammatory changes without abscess. Chronic and incidental intra-abdominal findings as above. Assessment and Plan - Diagnosis (1) Abscess of right thigh Is this a current diagnosis for this admission?: Yes Plan: Status post incision and drainage, on Zyvox and Levaquin for now. (2) Acute kidney injury (nontraumatic) Is this a current diagnosis for this admission?: Yes Plan: Resolved (3) Cellulitis of left abdominal wall Is this a current diagnosis for this admission?: Yes Plan: On antibiotics as previously noted (4) Cutaneous abscess of abdominal wall Is this a current diagnosis for this admission?: Yes Plan: Status post incision and drainage, on Zyvox and Levaquin (5) Poorly controlled diabetes mellitus Is this a current diagnosis for this admission?: Yes Plan: Currently on a sliding scale and diabetic diet. Tried to emphasize the importance of keeping her blood sugar under control so she does not get these recurrent infections, but she displayed no outward evidence that she was very concerned about that particular piece of information. (6) Morbid obesity with BMI of 40.0-44.9, adult Is this a current diagnosis for this admission?: Yes Plan: Strongly encourage lifestyle modification (7) Schizoaffective disorder Qualifiers: Schizoaffective disorder type: unspecified Qualified Code(s): F25.9 - Schizoaffective disorder, unspecified Is this a current diagnosis for this admission?: Yes Plan: Home medications have been continued (8) Abscess of multiple sites Is this a current diagnosis for this admission?: Yes Plan: Specifically, her left forearm. These were incised and drained on 09/18. We are awaiting identification and susceptibilities from microbiology. Currently on Zyvox and Levaquin. - Plan Summary Summary: Patient is admitted to observation status on the medical floor where she will receive routine supportive and symptomatic cares. She will be treated with oral Levaquin and Zyvox. An initial dose of intravenous insulin will be given to normalize her blood sugar. She will receive IV fluids using lactated Ringer's at 250 mL/h x 12 hours. Before meals and at bedtime Accu-Cheks will be performed and sliding scale insulin will be used for hyperglycemia with a hypoglycemic protocol in place. She will use morphine sulfate 2 to 4 mg IV every 2 hours as needed for pain. She will use Ativan 1 mg IV every 4 hours as needed for anxiety or restlessness. She will be placed on a cardiac and diabetic restricted diet. A CBC, metabolic profile, magnesium level, hemoglobin A1c, thyroid profile, BNP and lipid profile will be obtained in the morning. The patient's home medications will be resumed, as appropriate, once her medica tion list has been verified and reconciled. - Time Time Spent with patient: 25-34 minutes
--- NOTE | 2019-09-20 15:07 | PDOC PROGRESS REPORT ---
Subjective Progress Note for:: 09/20/19 Reason For Visit: ACUTE KIDNEY INJURY, CELLULITIS WITH ABSCESS Physical Exam Vital Signs: Temp Pulse Resp BP Pulse Ox 97.4 F 64 19 94/45 L 96 09/20/19 11:50 09/20/19 11:50 09/20/19 11:50 09/20/19 11:50 09/20/19 11:50 Intake & Output 09/19/19 09/20/19 09/21/19 06:59 06:59 06:59 Intake Total 3600 3358 Output Total 20 850 Balance 3580 2508 Weight 112.1 kg 112.1 kg Results Laboratory Results: 09/20/19 05:09 09/20/19 05:09 09/20/19 09/20/19 05:09 05:09 WBC 9.9 RBC 3.47 L Hgb 10.8 L Hct 33.3 L MCV 96 MCH 31.3 MCHC 32.5 RDW 14.0 Plt Count 314 Seg Neutrophils % 63.1 Sodium 133.0 L Potassium 4.3 Chloride 99 Carbon Dioxide 28 Anion Gap 6 BUN 10 Creatinine 0.93 Est GFR ( Amer) > 60 Glucose 127 H Calcium 8.5 Magnesium 1.6 Total Bilirubin 0.6 AST 16 Alkaline Phosphatase 107 Total Protein 5.1 L Albumin 2.6 L 09/17/19 17:20 Blood Blood Culture (PCR) - Final 09/17/19 17:20 Blood Blood Culture - Final Micrococcus Species 09/17/19 17:08 Abdomen - Abscess Gram Stain - Final 09/17/19 17:08 Abdomen - Abscess Wound Culture - Final Mrsa (Meth Resis Staph Aureus) Group B Beta Streptococcus Prevotella Species 09/17/19 15:35 Troponin I < 0.012 Impressions: Abdomen/Pelvis CT 09/17/19 18:43 IMPRESSION: Left pannus soft tissue injury with nonspecific radiodense material seen at the defect site. Surrounding inflammatory changes without abscess. Chronic and incidental intra-abdominal findings as above. Assessment & Plan - Diagnosis (1) Abscess of multiple sites Is this a current diagnosis for this admission?: Yes - Plan Summary Plan Summary: This is a 54-year-old female status post incision and drainage of multiple abscesses. The patient is sleepy today, and does not want to converse. I have examined all of her abscess sites. They all appear clean, without active purulence or necrosis. I will order dressing changes (damp to dry) twice daily. The patient should shower at least once per day with soap and water. The patient will not require further debridements. The patient is okay for discharge from a surgical standpoint. Plan for social media executive consult to arrange home dressing changes. Surgery will sign off at this time. Please renotify with any questions or concerns.
[2019-09-20] MEDS: AMITRIPTYLINE HCL 25 MG TABLET PO SCH (21:37)
[2019-09-20] MEDS: DIPHENHYDRAMINE HCL 25 MG CAPSULE PO SCH (21:38)
[2019-09-20] MEDS: DOXAZOSIN MESYLATE 2 MG TABLET PO SCH (21:38)
[2019-09-20] MEDS: LEVOFLOXACIN 750 MG TABLET PO SCH (21:40)
[2019-09-20] MEDS: ZOLPIDEM TARTRATE 5 MG TABLET PO SCH (21:40)
[2019-09-21] MEDS: OXYCODONE-ACETAMINOPHEN 5-325 MG TABLET PO PRN (00:01)
[2019-09-21] MEDS: NORMAL SALINE 1000 ML 1,000 ML IV PRN (04:50)
[2019-09-21] MEDS: PANTOPRAZOLE SODIUM 40 MG TABLET.DR PO SCH (05:00)
[2019-09-21] MEDS: TIZANIDINE HCL 4 MG TABLET PO SCH (05:00)
[2019-09-21] MEDS: INSULIN REG, HUMAN 100 UNIT/ML 3 ML VIAL (PYX) SUBCUT SCH ×2 (09:35→12:08)
[2019-09-21] MEDS: VENLAFAXINE HCL 75 MG CAP.SR.24H PO SCH (09:40)
[2019-09-21] MEDS: LINEZOLID 600 MG TABLET PO SCH (09:40)
[2019-09-21] MEDS: TOLTERODINE TARTRATE 1 MG TABLET PO SCH (09:40)
[2019-09-21] MEDS: PREGABALIN 75 MG CAPSULE PO SCH (09:40)
[2019-09-21] MEDS: METOPROLOL SUCCINATE 50 MG TAB.SR.24H PO SCH (09:41)
[2019-09-21] MEDS: DOCUSATE SODIUM 100 MG CAPSULE PO SCH (09:41)
[2019-09-21] MEDS: APIXABAN 5 MG TABLET PO SCH (09:44)
[2019-09-21] MEDS: FUROSEMIDE 40 MG TABLET PO SCH (09:45)
[2019-09-21] MEDS: NYSTATIN/TRIAMCIN OINTMENT 15 GM TP SCH (09:51)
[2019-09-21 13:47] VITALS: BP 92/59
--- NOTE | 2019-09-21 18:14 | PDOC DISCHARGE SUMMARY ---
Impression - Admit/DC Date/PCP Admission Date/Primary Care Provider: 09/18/19 13:21 RENALDO DAMON, Discharge Date: 09/21/19 - Discharge Diagnosis (1) Abscess of right thigh Is this a current diagnosis for this admission?: Yes (2) Acute kidney injury (nontraumatic) Is this a current diagnosis for this admission?: Yes (3) Cellulitis of left abdominal wall Is this a current diagnosis for this admission?: Yes (4) Cutaneous abscess of abdominal wall Is this a current diagnosis for this admission?: Yes (5) Poorly controlled diabetes mellitus Is this a current diagnosis for this admission?: Yes (6) Morbid obesity with BMI of 40.0-44.9, adult Is this a current diagnosis for this admission?: Yes (7) Schizoaffective disorder Is this a current diagnosis for this admission?: Yes (8) Abscess of multiple sites Is this a current diagnosis for this admission?: Yes - Assessment Summary: Patient is admitted to observation status on the medical floor where she will receive routine supportive and symptomatic cares. She will be treated with oral Levaquin and Zyvox. An initial dose of intravenous insulin will be given to normalize her blood sugar. She will receive IV fluids using lactated Ringer's at 250 mL/h x 12 hours. Before meals and at bedtime Accu-Cheks will be pe rformed and sliding scale insulin will be used for hyperglycemia with a hypoglycemic protocol in place. She will use morphine sulfate 2 to 4 mg IV every 2 hours as needed for pain. She will use Ativan 1 mg IV every 4 hours as needed for anxiety or restlessness. She will be placed on a cardiac and diabetic restricted diet. A CBC, metabolic profile, magnesium level, hemoglobin A1c, thyroid profile, BNP and lipid profile will be obtained in the morning. The patient's home medications will be resumed, as appropriate, once her medication list has been verified and reconciled. - Additional Information Resuscitation Status: Full Code Discharge Diet: Cardiac, Diabetic Discharge Activity: Other Referrals: FLORENCE COELHO MD [ACTIVE STAFF] - 09/27/19 8:15 am (7-10 days) Prescriptions: Metronidazole [Flagyl 500 mg Tablet] 500 mg PO Q6H #40 tablet Linezolid [Zyvox 600 mg Tablet] 600 mg PO Q12 #10 tablet Home Medications: Apixaban [Eliquis 5 mg Tablet] 5 mg PO Q12 03/18/17 Zolpidem Tartrate [Ambien] 10 mg PO QHS 03/18/17 Brexpiprazole [Rexulti] 2 mg PO QHS 02/12/18 Solifenacin Succinate [Vesicare] 10 mg PO DAILY 02/12/18 Oxycodone HCl/Acetaminophen [Percocet 5-325 mg Tablet] 1 tab PO Q8HP PRN 06/19/19 Prazosin HCl [Minipress] 2 mg PO QHS 06/19/19 Tizanidine HCl 6 mg PO Q8 06/19/19 Metoprolol Succinate [Toprol Xl 25 mg Tab.sr] 50 mg PO Q12 30 Days 06/28/19 Diphenhydramine HCl [Benadryl] 50 mg PO QHS 09/18/19 Furosemide [Lasix 40 mg Tablet] 20 mg PO DAILY 09/18/19 Lisinopril [Prinivil 5 mg Tablet] 5 mg PO DAILY 09/18/19 Pregabalin [Lyrica] 225 mg PO Q12 09/18/19 Acetaminophen [Tylenol 325 mg Tablet] 650 mg PO Q4HP PRN tablet 09/21/19 Linezolid [Zyvox 600 mg Tablet] 600 mg PO Q12 #10 tablet 09/21/19 Metronidazole [Flagyl 500 mg Tablet] 500 mg PO Q6H #40 tablet 09/21/19 History of Present Illiness History of Present Illness: SHOSHANA BOWMAN is a 54 year old female who presented to the emergency room with a 2-week history of "skin sores". She admits to the gradual development of 3 areas of "skin sores" over the last 2 weeks. The first area erupted on her right thigh with redness being present constantly and gradually spreading becoming more tender and eventually opening to drain pus. The second area began on her left abdominal pannus region 1 week ago and has gradually increased in redness and tenderness. The third area is in her jean-labial groin and has been gradually developing over the last 2 days. She denies associated or accompanying signs and symptoms. She admits prior similar episodes of lesser degree. She has not identified any aggravating or ameliorating factors for her "skin sores". In the emergency room she was found to have a draining abscess of the right thigh and a new abscess of the left abdominal pannus which was incised and drained with packing placed. Her groin was evaluated and no abscess or obvious cellulitis was found, however intertrigo was noted. Patient's white blood count was 13,000 and her blood sugar was 449. She was started on IV antibiotic therapy with clindamycin and treated with insulin. She was subsequently admitted observation status for further evaluation and treatment. Hospital Course Hospital Course: She had multiple abscess pockets debrided. She had one on the right thigh, one on the left side of her abdominal pannus, and 2 on her left forearm. The best specimen for culture was in the abdominal wall abscess. It grew out 3 organisms: MRSA, group B streptococcus, and Prevotella. She had empirically been on Zyvox and Levaquin. Based on the culture, we decided to send her on oral Zyvox and Flagyl. The wounds did not require further packing, and surgery recommended wet-to-dry dressings twice a day. It was not on her home medication list, but she said that she has insulin at home, but does not always use it. Her blood sugars were fairly easily controlled with just a sliding scale. She was counseled very strongly regarding the importance of conforming to her diabetic regimen. She has follow-up arranged with general surgery in 7 to 10 days. Her labs and examination were reassuring and she was discharged in stable condition. Physical Exam Vital Signs: Temp Pulse Resp BP Pulse Ox 97.9 F 80 19 92/59 L 94 09/21/19 13:46 09/21/19 13:46 09/21/19 13:46 09/21/19 13:46 09/21/19 13:46 Intake & Output 09/20/19 09/21/19 09/22/19 06:59 06:59 06:59 Intake Total 3358 3248 Output Total 850 Balance 2508 3248 Weight 112.1 kg 109.5 kg General appearance: PRESENT: no acute distress, cooperative, disheveled, morbidly obese Teeth exam: PRESENT: edentulous Respiratory exam: PRESENT: clear to auscultation denis, symmetrical, unlabored. ABSENT: accessory muscle use, chest wall tenderness, crackles, prolonged expiratory phas, rhonchi, tachypnea, wheezes Cardiovascular exam: PRESENT: RRR, +S1, +S2 Pulses: PRESENT: normal carotid pulses Vascular exam: PRESENT: normal capillary refill GI/Abdominal exam: PRESENT: normal bowel sounds, soft, other - Bandage over drained abscess on abdominal wall. ABSENT: distended, guarding, tenderness Extremities exam: PRESENT: other - Bandage over drained abscess on her right thigh and left forearm. ABSENT: clubbing, pedal edema Musculoskeletal exam: PRESENT: normal inspection. ABSENT: deformity Neurological exam: PRESENT: awake, oriented to person, oriented to place, oriented to situation - Somewhat Psychiatric exam: PRESENT: flat affect Results Laboratory Results: WBC 9.9 10^3/uL (4.0-10.5) 09/20/19 05:09 RBC 3.47 10^6/uL (3.72-5.28) L 09/20/19 05:09 Hgb 10.8 g/dL (12.0-15.5) L 09/20/19 05:09 Hct 33.3 % (36.0-47.0) L 09/20/19 05:09 MCV 96 fl (80-97) 09/20/19 05:09 MCH 31.3 pg (27.0-33.4) 09/20/19 05:09 MCHC 32.5 g/dL (32.0-36.0) 09/20/19 05:09 RDW 14.0 % (11.5-14.0) 09/20/19 05:09 Plt Count 314 10^3/uL (150-450) 09/20/19 05:09 Lymph % (Auto) 28.5 % (13-45) 09/20/19 05:09 [place] % (Auto) 5.1 % (3-13) 09/20/19 05:09 Eos % (Auto) 2.2 % (0-6) 09/20/19 05:09 Baso % (Auto) 1.1 % (0-2) 09/20/19 05:09 Absolute Neuts (auto) 6.2 10^3/uL (1.7-8.2) 09/20/19 05:09 Absolute Lymphs (auto) 2.8 10^3/uL (0.5-4.7) 09/20/19 05:09 Absolute Monos (auto) 0.5 10^3/uL (0.1-1.4) 09/20/19 05:09 Absolute Eos (auto) 0.2 10^3/uL (0.0-0.6) 09/20/19 05:09 Absolute Basos (auto) 0.1 10^3/uL (0.0-0.2) 09/20/19 05:09 Seg Neutrophils % 63.1 % (42-78) 09/20/19 05:09 Sodium 133.0 mmol/L (137-145) L 09/20/19 05:09 Potassium 4.3 mmol/L (3.6-5.0) 09/20/19 05:09 Chloride 99 mmol/L (98-107) 09/20/19 05:09 Carbon Dioxide 28 mmol/L (22-30) 09/20/19 05:09 Anion Gap 6 (5-19) 09/20/19 05:09 BUN 10 mg/dL (7-20) 09/20/19 05:09 Creatinine 0.93 mg/dL (0.52-1.25) 09/20/19 05:09 Est GFR ( Amer) > 60 (>60) 09/20/19 05:09 Est GFR (MDRD) Non-Af > 60 (>60) 09/20/19 05:09 Glucose 127 mg/dL (75-110) H 09/20/19 05:09 POC Glucose 187 mg/dL (70-110) H 09/21/19 11:33 Hemoglobin A1c % 11.8 % (4.7-6.0) H 09/18/19 06:27 Calcium 8.5 mg/dL (8.4-10.2) 09/20/19 05:09 Magnesium 1.6 mg/dL (1.6-2.3) 09/20/19 05:09 Total Bilirubin 0.6 mg/dL (0.2-1.3) 09/20/19 05:09 Direct Bilirubin 0.0 mg/dL (0.0-0.4) 09/20/19 05:09 Neonat Total Bilirubin Not Reportable 09/20/19 05:09 Neonat Direct Bilirubin Not Reportable 09/20/19 05:09 Neonat Indirect Bili Not Reportable 09/20/19 05:09 AST 16 U/L (14-36) 09/20/19 05:09 ALT 8 U/L (<35) 09/20/19 05:09 Alkaline Phosphatase 107 U/L (38-126) 09/20/19 05:09 Troponin I < 0.012 ng/mL 09/17/19 15:35 Total Protein 5.1 g/dL (6.3-8.2) L 09/20/19 05:09 Albumin 2.6 g/dL (3.5-5.0) L 09/20/19 05:09 Triglycerides 175 mg/dL (<150) H 09/18/19 06:27 Cholesterol 183.45 mg/dL (0-200) 09/18/19 06:27 LDL Cholesterol Direct 104 mg/dL (<100) H 09/18/19 06:27 VLDL Cholesterol 35.0 mg/dL (10-31) H 09/18/19 06:27 HDL Cholesterol 41 mg/dL (>40) 09/18/19 06:27 TSH 4.63 uIU/mL (0.47-4.68) 09/18/19 06:27 Urine Color YELLOW 09/17/19 16:29 Urine Appearance SLIGHTLY-CLOUDY 09/17/19 16:29 Urine pH 5.0 (5.0-9.0) 09/17/19 16:29 Ur Specific [place] 1.014 09/17/19 16:29 Urine Protein NEGATIVE mg/dL (NEGATIVE) 09/17/19 16:29 Urine Glucose (UA) >=500 mg/dL (NEGATIVE) H 09/17/19 16:29 Urine Ketones NEGATIVE mg/dL (NEGATIVE) 09/17/19 16:29 Urine Blood LARGE (NEGATIVE) H 09/17/19 16:29 Urine Nitrite NEGATIVE (NEGATIVE) 09/17/19 16:29 Urine Bilirubin NEGATIVE (NEGATIVE) 09/17/19 16:29 Urine Urobilinogen NEGATIVE mg/dL (<2.0) 09/17/19 16:29 Ur Leukocyte Esterase MODERATE (NEGATIVE) H 09/17/19 16:29 Urine WBC (Auto) 3 /HPF 09/17/19 16:29 Urine RBC (Auto) 10 /HPF 09/17/19 16:29 Urine Bacteria (Auto) TRACE /HPF 09/17/19 16:29 Squamous Epi Cells Auto 4 /HPF 09/17/19 16:29 Urine Mucus (Auto) RARE /LPF 09/17/19 16:29 Urine Ascorbic Acid NEGATIVE (NEGATIVE) 09/17/19 16:29 SARS-CoV-2 (PCR) NEGATIVE (NEGATIVE) 09/18/19 10:30 09/17/19 15:35 Troponin I < 0.012 Impressions: Abdomen/Pelvis CT 09/17/19 18:43 IMPRESSION: Left pannus soft tissue injury with nonspecific radiodense material seen at the defect site. Surrounding inflammatory changes without abscess. Chronic and incidental intra-abdominal findings as above. Plan Time Spent: Greater than 30 Minutes Stroke Is this a Stroke Patient?: No Acute Heart Failure - Is this a Heart Failure Patient?: No
== END 2019-09-21 14:50 | disposition home or self-care (01) | DRG 571 ==
LOC: ER 15:07 → EH 19:40 → 4W 20:50 → OBSVTOIN 09-18 13:21
PROVIDERS: ADMIT Emergency Medicine; ATTEND Family Medicine
PROC: 0JBF0ZZ Excision of Left Upper Arm Subcutaneous Tissue and Fascia, Open Approach (ICD-10-PCS; 2019-09-18)
PROC: 0KDL0ZZ Extraction of Left Abdomen Muscle, Open Approach (ICD-10-PCS; 2019-09-18)
PROC: 0JBL0ZZ Excision of Right Upper Leg Subcutaneous Tissue and Fascia, Open Approach (ICD-10-PCS; principal; 2019-09-18 16:30)
PROC: 0HBDXZZ Excision of Right Lower Arm Skin, External Approach (ICD-10-PCS; 2019-09-20)
DX: L02.211 Cutaneous abscess of abdominal wall (principal); L02.414 Cutaneous abscess of left upper limb; L02.415 Cutaneous abscess of right lower limb; N17.9 Acute kidney failure, unspecified; Z68.41 Body mass index [BMI] 40.0-44.9, adult; E87.1 Hypo-osmolality and hyponatremia; L02.412 Cutaneous abscess of left axilla; N39.0 Urinary tract infection, site not specified; L30.4 Erythema intertrigo; L02.214 Cutaneous abscess of groin; E11.65 Type 2 diabetes mellitus with hyperglycemia; D72.829 Elevated white blood cell count, unspecified; E66.01 Morbid (severe) obesity due to excess calories; F25.9 Schizoaffective disorder, unspecified; J45.909 Unspecified asthma, uncomplicated; K21.9 Gastro-esophageal reflux disease without esophagitis; Z20.828 Contact with and (suspected) exposure to other viral communicable diseases; L03.311 Cellulitis of abdominal wall; B95.62 Methicillin resistant Staphylococcus aureus infection as the cause of diseases classified elsewhere; B95.1 Streptococcus, group B, as the cause of diseases classified elsewhere; B96.89 Other specified bacterial agents as the cause of diseases classified elsewhere; I48.91 Unspecified atrial fibrillation; E78.5 Hyperlipidemia, unspecified; I11.0 Hypertensive heart disease with heart failure; I50.9 Heart failure, unspecified; M19.90 Unspecified osteoarthritis, unspecified site; Z79.01 Long term (current) use of anticoagulants; Z79.899 Other long term (current) drug therapy; Z91.19 Patient's noncompliance with other medical treatment and regimen; Z88.0 Allergy status to penicillin; Z88.2 Allergy status to sulfonamides; Z88.8 Allergy status to other drugs, medicaments and biological substances; Z90.49 Acquired absence of other specified parts of digestive tract; Z82.3 Family history of stroke; Z83.3 Family history of diabetes mellitus; Z82.49 Family history of ischemic heart disease and other diseases of the circulatory system
CPT/HCPCS: 36415; 400; 74176; 80048; 80053; 80061; 81001; 82962; 83036; 83735; 84443; 84484; 85025; 85027; 87040; 87070; 87075; 87077; 87150; 87186; 87205; 87635; 93005; 93010; 96361; 96365; 99140; 99284; C9803; G0378; J1815; J2060; J2250; J2270; J2405; J2704; J3010; J3490; J7030; J7120

== ENCOUNTER 2019-10-22 16:25 | Emergency (ER) | payer MEDICAID ==
--- NOTE | 2019-10-22 16:55 | ER Document Report ---
ED Medical Screen (RME) - General Chief Complaint: Foot Injury Stated Complaint: LEFT FOOT INJURY, SORES ON SKIN Time Seen by Provider: 10/22/19 16:47 Primary Care Provider: RENALDO DAMON DO [Primary Care Provider] - Follow up as needed Mode of Arrival: Ambulatory Information source: Patient Notes: Patient is a 54-year-old female comes emergency room with multiple complaints. First patient states she dropped several cans of soup on her left foot. She is complaining of left foot pain and difficulty ambulating. Her next complaint is multiple abscesses she has a history of them in the past and these have been here for the past 2 to 3 days. She has one on the right side of her face and multiple under her left axilla. She states that they hurt. Patient is a well-nourished well-developed morbidly obese 54-year-old female was in no apparent distress on physical exam today but does appear somewhat uncomfortable. Cardiac: Regular rate and rhythm no murmurs. Lungs: Bilateral breath sounds increased clear to auscultation. Skin examination patient's area concern is her left axilla as well as her right cheek. On patient's right cheek she has approximately a 1 cm fluctuant mass that is warm to touch with a center pustule. Other area of concern is her left axilla. Patient has some areas of scarring under the left axilla but appears that she has 2 prominent fluctuant areas under that axilla. 1 is approximately 4 centimeters long by 1 and half centimeters wide and depth is unknown. The next one is slightly smaller from palpation. Lower extremities: Examination patient's left foot shows she has an area of redness in the middle of her metatarsal area and some tenderness at the proximal end of the metatarsals. There is no overt ecchymosis or swelling noted at this time but moderate moderate tenderness in those areas to palpate. I have greeted and performed a rapid initial assessment of this patient. A comprehensive ED assessment and evaluation of the patient, analysis of test results and completion of the medical decision making process will be conducted by additional ED providers. Dictation of this chart was performed using voice recognition software; therefore, there may be some unintended grammatical errors. TRAVEL OUTSIDE OF THE [place] IN LAST 30 DAYS: No - Related Data Allergies/Adverse Reactions: tramadol Allergy (Intermediate, Verified 10/22/19 16:45) AMS Penicillins Allergy (Mild, Verified 10/22/19 16:45) rash Sulfa (Sulfonamide Antibiotics) Allergy (Mild, Verified 10/22/19 16:45) rash aspirin Allergy (Verified 10/22/19 16:45) NO ASA Past Medical History - Past Medical History Cardiac Medical History: Reports: Hx Atrial Fibrillation, Hx Congestive Heart Failure, Hx Hypercholesterolemia, Hx Hypertension Denies: Hx Coronary Artery Disease, Hx DVT, Hx Heart Attack, Hx Pulmonary Embolism Pulmonary Medical History: Reports: Hx Asthma, Hx Bronchitis Denies: Hx COPD, Hx Pneumonia Neurological Medical History: Reports: Hx Migraine. Denies: Hx Cerebrovascular Accident, Hx Seizures Endocrine Medical History: Reports: Hx Diabetes Mellitus Type 2 - Poorly compliant with medications and diet, Hx Hypothyroidism. Denies: Hx Diabetes Mellitus Type 1, Hx Hyperthyroidism Renal/ Medical History: Denies: Hx Peritoneal Dialysis GI Medical History: Reports: Hx Gastritis, Hx Gastroesophageal Reflux Disease. Denies: Hx Cirrhosis, Hx Crohn's Disease, Hx Hepatitis, Hx Ulcerative Colitis Musculoskeltal Medical History: Reports Hx Arthritis, Denies Hx Gout, Reports Hx Musculoskeletal Trauma Skin Medical History: Denies Hx Eczema, Denies Hx Psoriasis Psychiatric Medical History: Reports: Hx Anxiety, Hx Depression, Hx Schizoaffective Disorder, Hx Schizophrenia - schizo affective Infectious Medical History: Denies: Hx Hepatitis Past Surgical History: Reports: Hx Cholecystectomy, Hx Tubal Ligation. Denies: Hx Hysterectomy - Immunizations Immunizations up to date: Yes Hx Diphtheria, Pertussis, Tetanus Vaccination: Yes - 2012 Physical Exam - Vital signs Vitals: Temp Pulse BP Pulse Ox 98.9 F 80 123/62 97 10/22/19 16:45 10/22/19 16:45 10/22/19 16:45 10/22/19 16:45 Course - Vital Signs Vital signs: Temp Pulse Resp BP Pulse Ox 98.9 F 80 123/62 97 10/22/19 16:45 10/22/19 16:45 10/22/19 16:45 10/22/19 16:45 Doctor's Discharge - Discharge Referrals: RENALDO DAMON DO [Primary Care Provider] - Follow up as needed
--- NOTE | 2019-10-22 17:33 | RADIOLOGY REPORT (SQ) ---
EXAM DESCRIPTION: FOOT LEFT COMPLETE IMAGES COMPLETED DATE/TIME: 10/22/2019 4:18 pm REASON FOR STUDY: Blunt trauma . Dropped a can on foot. COMPARISON: None. NUMBER OF VIEWS: Three views. TECHNIQUE: AP, lateral and oblique radiographic images acquired of the left foot. LIMITATIONS: None. FINDINGS: MINERALIZATION: Normal. BONES: No acute fracture or dislocation. No worrisome bone lesions. JOINTS: No effusions. SOFT TISSUES: No soft tissue swelling. No foreign body. OTHER: No other significant finding. IMPRESSION: No radiographic abnormality of the left foot. TECHNICAL DOCUMENTATION: JOB ID: [id number] 2010 [employer]- All Rights Reserved Reading location - IP/workstation name: [email or web address]
[2019-10-22 17:59] LABS: ABSOLUTE BASOPHILS # (AUTO) 0.1 10^3/uL (0.0-0.2); ABSOLUTE EOSINOPHILS # (AUTO) 0.1 10^3/uL (0.0-0.6); ABSOLUTE LYMPHOCYTES (AUTO) 2.5 10^3/uL (0.5-4.7); ABSOLUTE MONOCYTES (AUTO) 0.4 10^3/uL (0.1-1.4); ABSOLUTE NEUT (AUTO) 6.8 10^3/uL (1.7-8.2); EOSINOPHILS % (AUTO) 1.2 % (0-6); HEMATOCRIT 39.9 % (36.0-47.0); MEAN CORPUSCULAR HEMOGLOBIN 31.3 pg (27.0-33.4); MEAN CORPUSCULAR HGB CONC 32.6 g/dL (32.0-36.0); MEAN CORPUSCULAR VOLUME 96 fl (80-97); MONOCYTES % (AUTO) 4.1 % (3-13); PLATELET COUNT 353 10^3/uL (150-450); RED BLOOD COUNT 4.16 10^6/uL (3.72-5.28); RED CELL DISTRIBUTION WIDTH 15.1 % (11.5-14.0); SEGMENTED NEUTROPHILS % (AUTO) 68.7 % (42-78); TOTAL CELLS COUNTED % (AUTO) 100 %; WHITE BLOOD COUNT 9.8 10^3/uL (4.0-10.5)
[2019-10-22] MEDS ORDERED: LIDOCAINE 1% INJ-PF (10 MG/ML) 30 ML SDV INJ ONE (19:09)
[2019-10-22] MEDS ORDERED: CEFTRIAXONE INJ 1000 MG VIAL IM ONE (19:09)
[2019-10-23] MEDS ORDERED: LIDOCAINE 1% INJ-PF (10 MG/ML) 30 ML SDV ONE (01:21)
[2019-10-23] MEDS ORDERED: CEFTRIAXONE INJ 1000 MG VIAL ONE (01:21)
[2019-10-23] MEDS ORDERED: CLINDAMYCIN HCL 150 MG CAPSULE PO ONE (01:44)
[2019-10-23] MEDS ORDERED: HYDROCODONE/ACETAMINOPHEN 5-325 MG (6 TAB/ER DISP) PO PRN (01:45)
[2019-10-23] MEDS ORDERED: HYDROCODONE/ACETAMINOPHEN 5-325 MG TABLET PO ONE (01:45)
--- NOTE | 2019-10-23 02:05 | ER Document Report ---
Entered by PAOLA KINGSLEY SCRIBE 10/23/19 0125 Acting as scribe for:BYRON PAGE IV, MD ED General - General Chief Complaint: Abscess Stated Complaint: LEFT FOOT INJURY, SORES ON SKIN Time Seen by Provider: 10/22/19 16:47 Primary Care Provider: JACOBY DIXON MD [ACTIVE STAFF] - 10/24/19 (call to arrange follow up appointment) RENALDO DAMON DO [Primary Care Provider] - Follow up as needed Mode of Arrival: Wheelchair Information source: Patient Notes: This 54 year old female patient presents to the ED today with complaints of abs cess to her right cheek and left axilla that developed about x2-3 days ago. Patient notes a history of abscesses in the past that have needed surgical intervention. She also reports left foot pain after she dropped a can on it yesterday. Denies any other complaints. TRAVEL OUTSIDE OF THE [place] IN LAST 30 DAYS: No - Related Data Allergies/Adverse Reactions: tramadol Allergy (Intermediate, Verified 10/22/19 16:45) AMS Penicillins Allergy (Mild, Verified 10/22/19 16:45) rash Sulfa (Sulfonamide Antibiotics) Allergy (Mild, Verified 10/22/19 16:45) rash aspirin Allergy (Verified 10/22/19 16:45) NO ASA Past Medical History - General Information source: Patient - Social History Smoking Status: Former Smoker Cigarette use (# per day): No Chew tobacco use (# tins/day): No Smoking Education Provided: No Frequency of alcohol use: None Drug Abuse: None Family History: Reviewed & Not Pertinent, CAD, CVA, DM, Hyperlipidemia, Hypertension, Malignancy, Thyroid Disfunction, Other - Asthma Patient has suicidal ideation: No Patient has homicidal ideation: No - Past Medical History Cardiac Medical History: Reports: Hx Atrial Fibrillation, Hx Congestive Heart Failure, Hx Hypercholesterolemia, Hx Hypertension Pulmonary Medical History: Reports: Hx Asthma, Hx Bronchitis Neurological Medical History: Reports: Hx Migraine Endocrine Medical History: Reports: Hx Diabetes Mellitus Type 2 - Poorly compliant with medications and diet, Hx Hypothyroidism GI Medical History: Reports: Hx Gastritis, Hx Gastroesophageal Reflux Disease Musculoskeletal Medical History: Reports Hx Arthritis, Reports Hx Musculoskeletal Trauma Psychiatric Medical History: Reports: Hx Anxiety, Hx Depression, Hx Schizoaffective Disorder, Hx Schizophrenia - schizo affective Past Surgical History: Reports: Hx Cholecystectomy, Hx Tubal Ligation - Immunizations Immunizations up to date: Yes Hx Diphtheria, Pertussis, Tetanus Vaccination: Yes - 2012 Review of Systems - Review of Systems Constitutional: No symptoms reported EENT: No symptoms reported Cardiovascular: No symptoms reported Respiratory: No symptoms reported Gastrointestinal: No symptoms reported Genitourinary: No symptoms reported Female Genitourinary: No symptoms reported Musculoskeletal: See HPI Skin: See HPI Hematologic/Lymphatic: No symptoms reported Neurological/Psychological: No symptoms reported -: Yes All other systems reviewed and negative Physical Exam - Vital signs Vitals: Temp Pulse BP Pulse Ox 98.9 F 80 123/62 97 10/22/19 16:45 10/22/19 16:45 10/22/19 16:45 10/22/19 16:45 Interpretation: Normal - General General appearance: Alert In distress: None - HEENT Head: Normocephalic, Atraumatic Eyes: Normal Pupils: PERRL - Respiratory Respiratory status: No respiratory distress Chest status: Nontender Breath sounds: Normal Chest palpation: Normal - Cardiovascular Rhythm: Regular Heart sounds: Normal auscultation Murmur: No Friction rub: No Gallop: None auscultated - Abdominal Inspection: Normal Distension: No distension Bowel sounds: Normal Tenderness: Nontender - Abdomen soft Organomegaly: No organomegaly - Back Back: Normal, Nontender - Extremities General upper extremity: Normal inspection Foot: Abrasion - small, left foot, Ecchymosis - left foot - Neurological Neuro grossly intact: Yes Orientation: AAOx4 [place] Coma Scale Eye Opening: Spontaneous [place] Coma Scale Verbal: Oriented [place] Coma Scale Motor: Obeys Commands [place] Coma Scale Total: 15 - Psychological Associated symptoms: Normal affect, Normal mood - Skin Skin irregularity: other - Couple areas of chronic skin changes associated with hidradenitis suppurativa. 1 abscess noted in the left axilla is spontaneously draining. Pustule noted to right cheek that appears to be excoriated; there is a small amount of pointing that appears to be amenable to warm compresses Course - Re-evaluation Re-evalutation: 10/23/19 01:45 Results of ED MSE discussed with patient. Diagnoses, plan of care discussed with patient as well as follow-up. All questions were answered prior to discharge. Emergency signs and symptoms, reasons to return to the emergency department discussed with patient. - Vital Signs Vital signs: Temp Pulse Resp BP Pulse Ox 98.9 F 80 123/62 97 10/22/19 16:45 10/22/19 16:45 10/22/19 16:45 10/22/19 16:45 - Laboratory Result Diagrams: 10/22/19 17:45 Laboratory results interpreted by me: 10/22/19 17:45 RDW 15.1 H - Diagnostic Test Radiology reviewed: Reports reviewed Discharge - Discharge Clinical Impression: Contusion of left foot, initial encounter, Hidradenitis axillaris Disposition: HOME, SELF-CARE Instructions: Oral Narcotic Medication ([facility]) Additional Instructions: Return to the Emergency Department without delay if any worse. HOME CARE INSTRUCTIONS & INFORMATION: Thank you for choosing us for your medical needs. We hope you're satisfied with the care you received. After you leave, you must properly care for your problem and, at the same time, observe its progress. Any condition can change. Some illnesses can change rapidly over hours or days. If your condition worsens, return to the Emergency Department or see your physician promptly. ABOUT YOUR X-RAYS AND EKG'S: If you had an EKG or X-rays taken, they have been read by the Emergency Physician. The X-rays and EKG's will also be read by a Radiologist or Ethologist within 24 hours. If discrepancies are noted, you will be notified by telephone. Please be certain the ED has a correct telephone number & address where you can be reached. Also, realize that some fractures or abnormalities do not show up on initial X-rays. If your symptoms continue, see your physician. ABOUT YOUR LABORATORY TEST: If you had laboratory tests, the results have been reviewed by the Emergency Physician. Some test results (for example cultures) may not be available for several days. You will be contacted if any test result shows you need additional treatment. Please be certain the ED has a correct telephone number and address where you can be reached. ABOUT YOUR MEDICATIONS: You will receive instructions on how to take your medicine on the prescription label you receive. Additional information may be provided by the Pharmacy. If you have questions afterwards, call the ED for clarification or further instructions. Some prescribed medications may cause drowsiness. Do not perform tasks such as driving a car or operating machinery without consulting your Pharmacist. If you feel you need a refill of pain medication, your condition will need re-evaluation. Please do not call for a refill of any medication. ABOUT YOUR SIGNATURE: Signature of this document acknowledges to followin. Understanding that you received emergency treatment and that you may be released before al medical problems are known or treated. Please be certain the ED has a correct phone number & address where you can be reached. 2. Acknowledgement that you will arrange for follow-up care as recommended. 3. Authorization for the Emergency Physician to provide information to your follow-up Physician in order to maximize your care. AT ANY TIME, IF YOUR SYMPTOMS CHANGE SIGNIFICANTLY OR WORSEN OR YOU DEVELOP NEW SYMPTOMS, RETURN TO THE EMERGENCY DEPARTMENT IMMEDIATELY FOR RE-EVALUATION. OUR GOAL IS TO PROVIDE EXCELLENT MEDICAL CARE! WE HOPE THAT WE HAVE MET YOUR EXPECTATIONS DURING YOUR EMERGENCY DEPARTMENT VISIT AND THAT YOU FEEL YOU HAVE RECEIVED EXCELLENT CARE! Contusion Your injury has resulted in a contusion -- a crushing of the deep tissues. No injury to important structures was detected during the physician's exam. Contusions vary in the amount of pain they cause, and in the length of time required for healing. Typically, the area will become bruised, and will remain painful to touch for two or three weeks. However, most patients are back to working and playing within a few days. After the initial period of rest and cold-packs, your symptoms (together with the doctor's recommendations) will determine how rapidly you can get back to full activity. Usually this means "do what feels okay, but don't do things that hurt." If re-examination was recommended, it's important to follow up as instructed. Call the doctor or return any time if pain increases, if swelling becomes severe, if you develop numbness or weakness in an injured extremity, or if any other alarming symptoms occur. Prescriptions: Hydrocodone/Acetaminophen [[place] 5-325 mg Tablet] 1 tab PO Q6HP PRN #12 tablet PRN Reason: pain Clindamycin HCl [Cleocin 150 mg Capsule] 450 mg PO TID 10 Days #90 capsule Referrals: RENALDO DAMON DO [Primary Care Provider] - Follow up as needed JACOBY DIXON MD [ACTIVE STAFF] - 10/24/19 (call to arrange follow up appointment) I personally performed the services described in the documentation, reviewed and edited the documentation which was dictated to the scribe in my presence, and it accurately records my words and actions.
[2019-10-23 02:57] VITALS: BP 120/64
== END 2019-10-23 02:30 | disposition home or self-care (01) ==
LOC: ER 16:25
DX: L73.2 Hidradenitis suppurativa (principal); S90.32XA Contusion of left foot, initial encounter; W20.8XXA Other cause of strike by thrown, projected or falling object, initial encounter; L02.01 Cutaneous abscess of face; L02.412 Cutaneous abscess of left axilla; I48.91 Unspecified atrial fibrillation; I50.9 Heart failure, unspecified; I11.0 Hypertensive heart disease with heart failure; E11.9 Type 2 diabetes mellitus without complications; Z88.2 Allergy status to sulfonamides; Z88.0 Allergy status to penicillin; Z88.6 Allergy status to analgesic agent; Z79.84 Long term (current) use of oral hypoglycemic drugs
CPT/HCPCS: 99283; 36415; 85025; 73630; J3490

== ENCOUNTER 2019-11-29 14:07 | Inpatient (IN) | payer MEDICAID ==
[2019-11-29] MEDS ORDERED: IPRATROPIUM/ALBUTEROL 0.5-2.5 MG/3 ML AMPUL NEB ONE (15:28)
[2019-11-29] MEDS ORDERED: RINGERS LACTATED IV ONE (15:39)
--- NOTE | 2019-11-29 15:55 | ER Document Report ---
ED Fever - General Chief Complaint: Fever Stated Complaint: FEVER Time Seen by Provider: 11/29/19 15:02 Primary Care Provider: RENALDO DAMON DO [Primary Care Provider] - Follow up as needed Information source: Patient TRAVEL OUTSIDE OF THE [place] IN LAST 30 DAYS: No - HPI Patient complains to provider of: Fever Onset: Just prior to arrival Onset/Duration: Gradual Quality of pain: Achy Context: Diarrhea. denies: Cough Associated symptoms: Diarrhea, Fever, Headache, Shortness of breath. denies: Chest pain, Earache, Vomiting, Rhinnorhea, Sore throat Similar symptoms previously: No Recently seen / treated by doctor: No Notes: Patient is a 54-year-old female who presents with a fever. She was at a routine ENT appointment today and began to feel lightheaded. Found to have a temperature of 102F and given Tylenol by EMS. She was hypoxic for EMS and placed on 2 L nasal cannula with improvement. Denies cough but has been short of breath since yesterday. She had diarrhea yesterday. Denies any significant abdominal pain. No ENT symptoms but has had a headache which is not new for her. She denies sick contacts or known exposure to Covid 19. No significant appetite changes. No chest pain. - Related Data Allergies/Adverse Reactions: tramadol Allergy (Intermediate, Verified 11/29/19 15:10) AMS Penicillins Allergy (Mild, Verified 11/29/19 15:10) rash Sulfa (Sulfonamide Antibiotics) Allergy (Mild, Verified 11/29/19 15:10) rash aspirin Allergy (Verified 11/29/19 15:10) NO ASA Past Medical History - Social History Smoking Status: Never Smoker Family History: Reviewed & Not Pertinent, CAD, CVA, DM, Hyperlipidemia, Hypertension, Malignancy, Thyroid Disfunction, Other - Asthma - Past Medical History Cardiac Medical History: Reports: Hx Atrial Fibrillation, Hx Congestive Heart Failure, Hx Hypercholesterolemia, Hx Hypertension Denies: Hx Coronary Artery Disease, Hx DVT, Hx Heart Attack, Hx Pulmonary Embolism Pulmonary Medical History: Reports: Hx Asthma, Hx Bronchitis Denies: Hx COPD, Hx Pneumonia Neurological Medical History: Reports: Hx Migraine. Denies: Hx Cerebrovascular Accident, Hx Seizures Endocrine Medical History: Reports: Hx Diabetes Mellitus Type 2 - Poorly compli ant with medications and diet, Hx Hypothyroidism. Denies: Hx Diabetes Mellitus Type 1, Hx Hyperthyroidism Renal/ Medical History: Denies: Hx Peritoneal Dialysis GI Medical History: Reports: Hx Gastritis, Hx Gastroesophageal Reflux Disease. Denies: Hx Cirrhosis, Hx Crohn's Disease, Hx Hepatitis, Hx Ulcerative Colitis Musculoskeletal Medical History: Reports Hx Arthritis, Denies Hx Gout, Reports Hx Musculoskeletal Trauma Skin Medical History: Denies Hx Eczema, Denies Hx Psoriasis Psychiatric Medical History: Reports: Hx Anxiety, Hx Depression, Hx Schizoaffective Disorder, Hx Schizophrenia - schizo affective Infectious Medical History: Denies: Hx Hepatitis Past Surgical History: Reports: Hx Cholecystectomy, Hx Tubal Ligation. Denies: Hx Hysterectomy - Immunizations Immunizations up to date: Yes Hx Diphtheria, Pertussis, Tetanus Vaccination: Yes - 2012 Review of Systems - Review of Systems Constitutional: Fever, Malaise EENT: denies: Ear pain, Nose congestion, Nose discharge, Mouth pain Cardiovascular: Lightheaded. denies: Chest pain Respiratory: Hurts to breathe, Short of breath, Wheezing. denies: Cough Gastrointestinal: Diarrhea. denies: Abdominal pain, Vomiting, Poor appetite Genitourinary: denies: Dysuria Female Genitourinary: No symptoms reported Musculoskeletal: denies: Neck pain Skin: No symptoms reported. denies: Lesions Hematologic/Lymphatic: No symptoms reported Neurological/Psychological: No symptoms reported Physical Exam - Vital signs Vitals: Resp Pulse Ox 13 95 11/29/19 14:07 11/29/19 14:07 Interpretation: Hypoxic, Tachypneic, Febrile - General General appearance: Appears well In distress: Mild - HEENT Head: Normocephalic, Atraumatic Eyes: Normal Ears: Normal - Respiratory Respiratory status: Respiratory distress Chest status: Nontender Breath sounds: Decreased air movement, Other - Diminished lung sounds bilaterally - Cardiovascular Rhythm: Regular Heart sounds: Normal auscultation - Abdominal Inspection: Normal, Obese. No: Wounds Distension: No distension Tenderness: Nontender - Extremities General upper extremity: Normal inspection General lower extremity: Normal inspection - Neurological Neuro grossly intact: Yes Cognition: Normal Orientation: AAOx4 - Psychological Associated symptoms: Normal affect, Normal mood - Skin Skin Temperature: Warm Skin Moisture: Dry Course - Re-evaluation Re-evalutation: 11/29/19 16:08 Nurse reports patient's O2 dropped to 85 when ambulating off oxygen. 2L nasal cannula placed again and patient improved. 11/29/19 17:31 Patient continues to feel short of breath, minimal relief with duonebs. Covid testing sent. She states she has pain with deep breathing and is compliant with her apixaban for atrial fibrillation. I will obtain a CTA of her chest to evaluate for PE as she is hypoxic and has pleuritic chest pain. Patient will need to be admitted for hypoxia and further management as she is requiring 2L nasal cannula and is normally on room air. Given 500ml fluid by EMS and 1L in the Ed. Patient's urinalysis has trace bacteria, moderate leukocyte esterase, and WBC. From record review, she has had a UTI in the past susceptible to Rocephin. I will treat as she did have fever today and later admitted to increased urinary frequency. Will await urine cultures. Patient will need to be admitted as she has acute respiratory failure requiring supplemental O2 with nasal cannula. Covid swab and blood work was obtained as this is a possible cause of her shortness of breath. CTA is pending to rule out PE and further assess for any pneumonia. I discussed results with the patient and she is very agreeable to plan for admission. Patient will be signed out to my colleague at the end of my shift while pending CT scan. 11/29/19 18:57 11/29/19 19:01 11/29/19 19:21 11/29/19 19:23 - Vital Signs Vital signs: Temp Pulse Resp BP Pulse Ox 98.4 F 83 28 H 131/68 H 94 11/29/19 17:00 11/29/19 14:57 11/29/19 19:07 11/29/19 18:54 11/29/19 19:07 - Laboratory Result Diagrams: 11/29/19 14:47 11/29/19 14:47 Laboratory results interpreted by me: 11/29/19 11/29/19 11/29/19 14:47 14:47 14:47 RDW 15.0 H PT 18.0 H D-Dimer Sodium 134.7 L Est GFR ( Amer) 56 L Est GFR (MDRD) Non-Af 46 L Glucose 215 H Calcium 8.3 L C-Reactive Protein Total Protein 6.2 L Urine Glucose (UA) Urine Ketones Urine Blood Leukocyte Esterase Rfl 11/29/19 11/29/19 11/29/19 14:47 14:47 14:47 RDW PT D-Dimer 0.97 H Sodium Est GFR ( Amer) Est GFR (MDRD) Non-Af Glucose Calcium C-Reactive Protein 224.1 H Total Protein Urine Glucose (UA) >=500 H Urine Ketones TRACE H Urine Blood SMALL H Leukocyte Esterase Rfl MODERATE H - Diagnostic Test Radiology reviewed: Image reviewed, Reports reviewed - EKG Interpretation by Me EKG shows normal: Sinus rhythm Rate: Normal Rhythm: NSR When compared to previous EKG there are: No significant change Additional EKG results interpreted by me: 11/29/19 16:11 Sinus rhythm at a rate of 81. QTC 437. No acute ST changes. No significant change from previous EKG. Discharge - Discharge Clinical Impression: Hypoxia, Acute respiratory failure with hypoxia Fever Qualifiers: Fever type: unspecified Qualified Code(s): R50.9 - Fever, unspecified Condition: Fair Disposition: OTHER Referrals: RENALDO DAMON DO [Primary Care Provider] - Follow up as needed
[2019-11-29 16:17] LABS: ABSOLUTE LYMPHOCYTES (AUTO) 1.6 10^3/uL (0.5-4.7); ABSOLUTE MONOCYTES (AUTO) 0.4 10^3/uL (0.1-1.4); ABSOLUTE NEUT (AUTO) 6.2 10^3/uL (1.7-8.2); BASOPHILS % (AUTO) 0.3 % (0-2); EOSINOPHILS % (AUTO) 0.1 % (0-6); HEMATOCRIT 39.3 % (36.0-47.0); HEMOGLOBIN 12.7 g/dL (12.0-15.5); INTERNATIONAL RATION (INR) 1.47; LYMPHOCYTES % (AUTO) 19.1 % (13-45); MEAN CORPUSCULAR HEMOGLOBIN 30.2 pg (27.0-33.4); MEAN CORPUSCULAR HGB CONC 32.4 g/dL (32.0-36.0); MEAN CORPUSCULAR VOLUME 93 fl (80-97); MONOCYTES % (AUTO) 4.9 % (3-13); PLATELET COUNT 327 10^3/uL (150-450); RED BLOOD COUNT 4.21 10^6/uL (3.72-5.28); SEGMENTED NEUTROPHILS % (AUTO) 75.6 % (42-78); TOTAL CELLS COUNTED % (AUTO) 100 %; WHITE BLOOD COUNT 8.2 10^3/uL (4.0-10.5)
[2019-11-29 16:21] LABS: ALBUMIN 3.5 g/dL (3.5-5.0); ALKALINE PHOSPHATASE 122 U/L (38-126); ANION GAP 9 (5-19); ASPARTATE AMINO TRANSFERASE 25 U/L (14-36); BILIRUBIN,DIRECT 0.3 mg/dL (0.0-0.4); BILIRUBIN,TOTAL 0.7 mg/dL (0.2-1.3); BLOOD UREA NITROGEN 10 mg/dL (7-20); CALCIUM 8.3 mg/dL (8.4-10.2); CARBON DIOXIDE 26 mmol/L (22-30); CHLORIDE 100 mmol/L (98-107); GLUCOSE 215 mg/dL (75-110); TOTAL PROTEIN 6.2 g/dL (6.3-8.2)
--- NOTE | 2019-11-29 16:24 | RADIOLOGY REPORT (SQ) ---
EXAM DESCRIPTION: CHEST SINGLE VIEW IMAGES COMPLETED DATE/TIME: 11/29/2019 4:15 pm REASON FOR STUDY: cough, shortness of breath COMPARISON: 08/09/2019. NUMBER OF VIEWS: One view. TECHNIQUE: Single frontal radiographic view of the chest acquired. LIMITATIONS: None. FINDINGS: LUNGS AND PLEURA: No opacities, masses or pneumothorax. No pleural effusion. MEDIASTINUM AND HILAR STRUCTURES: No masses. Contour normal. HEART AND VASCULAR STRUCTURES: Heart enlarged without failure. Normal vasculature. BONES: No acute findings. HARDWARE: None in the chest. OTHER: No other significant finding. IMPRESSION: HEART ENLARGED WITHOUT FAILURE. NO OTHER SIGNIFICANT RADIOGRAPHIC FINDING IN THE CHEST. TECHNICAL DOCUMENTATION: JOB ID: [id number] 2010 [employer]- All Rights Reserved Reading location - IP/workstation name: [email or web address]
[2019-11-29] MEDS ORDERED: RINGERS SOLUTION,LACTATED 1,000 ML IV ONE (16:44)
[2019-11-29 16:49] LABS: APPEARANCE,URINE SLIGHTLY-CLOUDY; BILIRUBIN,URINE NEGATIVE (NEGATIVE); GLUCOSE, URINE >=500 mg/dL (NEGATIVE); KETONES,URINE TRACE mg/dL (NEGATIVE); PROTEIN,URINE NEGATIVE (NEGATIVE); URINE SPECIFIC GRAVITY 1.009; UROBILINOGEN,URINE NEGATIVE mg/dL (<2.0)
[2019-11-29 16:50] LABS: COLOR,URINE YELLOW
[2019-11-29] MEDS ORDERED: CEFTRIAXONE 1 GM/D5W RTU 1 GM/50 ML RTUPB IV ONE (18:13)
--- NOTE | 2019-11-29 18:35 | EKG REPORT ---
SEVERITY:- BORDERLINE ECG - SINUS RHYTHM BORDERLINE T ABNORMALITIES, DIFFUSE LEADS : Confirmed by: Jeramie Quevedo MD 29-Nov-2019 18:35:23
[2019-11-29 18:58] LABS: C-REACTIVE PROTEIN 224.1 mg/L (<10.0)
[2019-11-29] MEDS ORDERED: MORPHINE SULFATE 10 MG/ML INJ IV ONE (19:13)
[2019-11-29 19:20] LABS: FERRITIN 93.3 ng/mL (11.1-264.0)
--- NOTE | 2019-11-29 21:02 | RADIOLOGY REPORT (SQ) ---
CT CHEST ANGIOGRAPHY WITHOUT THEN WITH IV CONTRAST HISTORY: Hypoxia. Chest pain. Fever. COMPARISON: 06/18/2019 TECHNIQUE: CT angiogram of the chest with IV contrast. 3-D MIP images were obtained in coronal and sagittal reconstructions. This exam was performed according to our departmental dose-optimization program, which includes automated exposure control, adjustment of the mA and/or kV according to patient size and/or use of iterative reconstruction technique. FINDINGS: No filling defects are seen in the pulmonary trunk or the left and right main pulmonary artery. There is limited evaluation of the segmental branches due to motion artifact. There are multiple patchy groundglass opacities scattered throughout both lungs in a predominantly peripheral distribution. No pleural effusions or pneumothorax. Normal heart size without pericardial effusion. No mediastinal adenopathy is seen. The visualized portions of the upper abdomen are unremarkable. The bony thorax is intact. IMPRESSION: 1. No central pulmonary embolism. 2. Commonly reported imaging features of (COVID-19 or viral) pneumonia are present. Other processes such as influenza pneumonia and organizing pneumonia, as can be seen with drug toxicity and connective tissue disease, can cause a similar imaging pattern. [PneTyp]
[2019-11-29] MEDS ORDERED: AMITRIPTYLINE HCL 50 MG TABLET PO ONE (21:24)
--- NOTE | 2019-11-29 21:32 | ER Document Report ---
Doctor's Note Notes: 11/29/19 21:31 CTA suggestive of COVID, neg PE. Discussed with Dr Velásquez for admission.
[2019-11-29] MEDS ORDERED: GUAIFENESIN SYRP 200 MG/10 ML UDC PO PRN (22:39)
[2019-11-29] MEDS ORDERED: LEVALBUTEROL HCL NEB 0.63 MG/3 ML AMPUL NEB PRN (22:39)
[2019-11-29] MEDS ORDERED: METOPROLOL TARTRATE PF/INJ 5 MG/5 ML SDV IV PRN (22:47)
[2019-11-29] MEDS ORDERED: MAGNESIUM HYDROXIDE SUSP 30 ML UDCUP PO PRN (22:47)
[2019-11-29] MEDS ORDERED: DEXTROSE 40% GEL 15 GM TUBE PO PRN ×2 (22:47)
[2019-11-29] MEDS ORDERED: MAG HYDROX/AL HYDROX/SIMETH SUSP 30 ML UDCUP PO PRN (22:47)
[2019-11-29] MEDS ORDERED: DEXTROSE 50%-WATER 25 GM/50 ML DISP.SYRIN IV PRN ×2 (22:47)
[2019-11-29] MEDS ORDERED: GLUCAGON,HUMAN RECOMB 1 MG INJ IM PRN (22:47)
[2019-11-29] MEDS ORDERED: MORPHINE SULFATE 10 MG/ML INJ IV PRN (22:47)
[2019-11-29] MEDS ORDERED: DEXAMETHASONE SOD PHOS INJ 10 MG/1 ML VIAL IV ONE (22:48)
[2019-11-29] MEDS ORDERED: AZITHROMYCIN 500 MG in DEXTROSE 5%-WATER 250 ML IV ONE (23:00)
[2019-11-29] MEDS ORDERED: APIXABAN 5 MG TABLET PO ONE (23:15)
[2019-11-29] MEDS ORDERED: FAMOTIDINE 20 MG TABLET PO ONE (23:15)
[2019-11-29] MEDS ORDERED: AZITHROMYCIN INJ 500 MG VIAL IV ONE (23:22)
[2019-11-29] MEDS: RINGERS SOLUTION,LACTATED 1,000 ML IV PRN (23:58)
[2019-11-30] MEDS ORDERED: MORPHINE SULFATE 10 MG/ML INJ IV PRN ×3 (00:06→00:07)
--- NOTE | 2019-11-30 01:41 | PDOC H&P ---
History of Present Illness Admission Date/PCP: 11/29/19 21:43 RENALDO DAMON DO Patient complains of: Fever History of Present Illness: SHOSHANA BOWMAN is a 54 year old female who presented to the emergency room with an acute fever. She admits feeling lightheaded at her ear nose and throat physi leonid's office causing the office staff to take her vital signs. She was found to have a temperature of 102 F and EMS was summoned to bring her to the hospital. She admits accompanying mild dyspnea and general malaise gradually worsening over the last 24 hours. She admits an associated single episode of diarrhea yesterday. She denies other associated or accompanying signs and symptoms. She admits prior similar episodes. She has not identified any aggravating or ameliorating factors for her fever. In the emergency room she was found to be hypoxic requiring supplemental oxygen to maintain an adequate oxygen saturation and a CTA of the chest demonstrated multifocal bilateral pneumonia concerning for COVID-19. Additionally she was noted to have a positive CRP and a positive d-dimer. A COVID-19 nasal swab screening was obtained and the patient was admitted under investigation for further evaluation and treatment. Past Medical History Cardiac Medical History: Reports: Atrial Fibrillation, Congestive Heart Failure, Hyperlipidema, Hypertension Denies: Coronary Artery Disease, DVT, Myocardial Infarction, Pulmonary Embolism Pulmonary Medical History: Reports: Asthma, Bronchitis Denies: Chronic Obstructive Pulmonary Disease (COPD), Pneumonia EENT Medical History: Denies: Cataracts, Ears - Hearing aids Neurological Medical History: Reports: Migraine Denies: Hemorrhagic CVA, Ischemic CVA, Seizures Endocrine Medical History: Reports: Diabetes Mellitus Type 2 - Poorly compliant with medications and diet, Hypothyroidism Denies: Diabetes Mellitus Type 1, Hyperthyroidism Renal/ Medical History: Denies: Chronic Kidney Disease, Nephrolithiasis Malignancy Medical History: Reports: None GI Medical History: Reports: Gastroesophageal Reflux Disease Denies: Cirrhosis, Crohn's Disease, Hepatitis, Peptic Ulcer Disease, Ulcerative Colitis Musculoskeltal Medical History: Reports: Arthritis Denies: Gout Skin Medical History: Denies: Eczema, Psoriasis Psychiatric Medical History: Reports: Depression, Schizoaffective Disorder Denies: Alcohol Dependency, Substance Abuse, Tobacco Dependency Traumatic Medical History: Reports: None Hematology: Denies: Anemia, Bleeding Tendencies Infectious Medical History: Reports: None Past Surgical History Past Surgical History: Reports: Cholecystectomy, Tubal Ligation Social History Information Source: Patient Lives with: Alone Smoking Status: Former Smoker Electronic Cigarette use?: No Frequency of Alcohol Use: None Hx Recreational Drug Use: No Drugs: None Hx Prescription Drug Abuse: No - Advance Directive Resuscitation Status: Full Code Surrogate healthcare decision maker:: Patient declines to provide a surrogate decision-maker at this time. Family History Family History: CAD, CVA, DM, Hyperlipidemia, Hypertension, Malignancy, Thyroid Disfunction, Other - Asthma Parental Family History Reviewed: Yes Children Family History Reviewed: No Sibling(s) Family History Reviewed.: Yes Medication/Allergy Home Medications: Apixaban [Eliquis 5 mg Tablet] 5 mg PO Q12 03/18/17 Zolpidem Tartrate [Ambien] 10 mg PO QHS 03/18/17 Brexpiprazole [Rexulti] 2 mg PO QHS 02/12/18 Solifenacin Succinate [Vesicare] 10 mg PO DAILY 02/12/18 Oxycodone HCl/Acetaminophen [Percocet 5-325 mg Tablet] 1 tab PO Q8HP PRN 06/19/19 Prazosin HCl [Minipress] 2 mg PO QHS 06/19/19 Tizanidine HCl 6 mg PO Q8 06/19/19 Metoprolol Succinate [Toprol Xl 25 mg Tab.sr] 50 mg PO Q12 30 Days 06/28/19 Diphenhydramine HCl [Benadryl] 50 mg PO QHS 09/18/19 Furosemide [Lasix 40 mg Tablet] 20 mg PO DAILY 09/18/19 Lisinopril [Prinivil 5 mg Tablet] 5 mg PO DAILY 09/18/19 Pregabalin [Lyrica] 225 mg PO Q12 09/18/19 Acetaminophen [Tylenol 325 mg Tablet] 650 mg PO Q4HP PRN tablet 09/21/19 Linezolid [Zyvox 600 mg Tablet] 600 mg PO Q12 #10 tablet 09/21/19 Metronidazole [Flagyl 500 mg Tablet] 500 mg PO Q6H #40 tablet 09/21/19 Clindamycin HCl [Cleocin 150 mg Capsule] 450 mg PO TID 10 Days #90 capsule 10/23/19 Hydrocodone/Acetaminophen [[place] 5-325 mg Tablet] 1 tab PO Q6HP PRN #12 tablet 10/23/19 Allergies/Adverse Reactions: tramadol Allergy (Intermediate, Verified 11/29/19 15:10) AMS Penicillins Allergy (Mild, Verified 11/29/19 15:10) rash Sulfa (Sulfonamide Antibiotics) Allergy (Mild, Verified 11/29/19 15:10) rash aspirin Allergy (Verified 11/29/19 15:10) NO ASA Review of Systems Constitutional: PRESENT: as per HPI, fever(s), other - Malaise. ABSENT: chills Eyes: ABSENT: visual disturbances, other - Eye pain Ears: ABSENT: hearing changes, other - Ear pain Nose, Mouth, and Throat: PRESENT: headache(s) - Frequent. ABSENT: sore throat Cardiovascular: PRESENT: as per HPI, other - Lightheadedness. ABSENT: chest pain, palpitations Respiratory: PRESENT: as per HPI, dyspnea. ABSENT: cough Gastrointestinal: PRESENT: as per HPI, diarrhea. ABSENT: abdominal pain, const ipation, nausea, vomiting Genitourinary: ABSENT: dysuria, hematuria Musculoskeletal: ABSENT: back pain, joint swelling Integumentary: ABSENT: pruritus, rash Neurological: ABSENT: confusion, convulsions, focal weakness, memory loss, syncope Psychiatric: ABSENT: anxiety, depression Endocrine: ABSENT: cold intolerance, heat intolerance Hematologic/Lymphatic: ABSENT: easy bleeding, easy bruising Allergic/Immunologic: ABSENT: seasonal rhinorrhea Physical Exam Vital Signs: Temp Pulse Resp BP Pulse Ox 98.4 F 83 25 H 127/79 H 100 11/29/19 21:15 11/29/19 14:57 11/29/19 21:03 11/29/19 21:03 11/29/19 21:03 Intake & Output 11/27/19 11/28/19 11/29/19 23:59 23:59 23:59 Intake Total 1520 Balance 1520 Weight 108.862 kg General appearance: PRESENT: no acute distress, cooperative, morbidly obese Head exam: PRESENT: atraumatic, normocephalic Eye exam: PRESENT: conjunctiva pink. ABSENT: conjunctival injection, scleral icterus Ear exam: PRESENT: normal external ear exam. ABSENT: bleeding, drainage Mouth exam: PRESENT: dry mucosa, neck supple Neck exam: ABSENT: thyromegaly, tracheal deviation Respiratory exam: PRESENT: clear to auscultation denis, symmetrical, tachypnea. ABSENT: rales, rhonchi Cardiovascular exam: PRESENT: RRR. ABSENT: clicks, gallop, rubs Pulses: PRESENT: normal radial pulses, normal dorsalis pedis pul Vascular exam: PRESENT: normal capillary refill. ABSENT: pallor GI/Abdominal exam: PRESENT: normal bowel sounds, soft Rectal exam: PRESENT: deferred Extremities exam: ABSENT: joint swelling, pedal edema Musculoskeletal exam: ABSENT: deformity, dislocation Neurological exam: PRESENT: alert, oriented to person, oriented to place, oriented to time, oriented to situation, CN II-XII grossly intact. ABSENT: motor sensory deficit Psychiatric exam: PRESENT: appropriate affect, normal mood Skin exam: PRESENT: dry, intact, warm. ABSENT: jaundice, rash, urticaria Results Laboratory Results: 11/29/19 14:47 11/29/19 14:47 11/29/19 11/29/19 11/29/19 14:47 14:47 14:47 WBC 8.2 RBC 4.21 Hgb 12.7 Hct 39.3 MCV 93 MCH 30.2 MCHC 32.4 RDW 15.0 H Plt Count 327 Seg Neutrophils % 75.6 Sodium 134.7 L Potassium 4.0 Chloride 100 Carbon Dioxide 26 Anion Gap 9 BUN 10 Creatinine 1.21 Est GFR ( Amer) 56 L Glucose 215 H Lactic Acid Calcium 8.3 L Ferritin Total Bilirubin 0.7 AST 25 Alkaline Phosphatase 122 C-Reactive Protein Total Protein 6.2 L Albumin 3.5 Lipase 39.0 Serum HCG, Qual NEGATIVE Urine Color Urine Appearance Urine pH Ur Specific [place] Urine Protein Urine Glucose (UA) Urine Ketones Urine Blood Urine RBC (Auto) 11/29/19 11/29/19 11/29/19 14:47 14:47 15:43 WBC RBC Hgb Hct MCV MCH MCHC RDW Plt Count Seg Neutrophils % Sodium Potassium Chloride Carbon Dioxide Anion Gap BUN Creatinine Est GFR ( Amer) Glucose Lactic Acid 1.0 Calcium Ferritin 93.30 Total Bilirubin AST Alkaline Phosphatase C-Reactive Protein 224.1 H Total Protein Albumin Lipase Serum HCG, Qual Urine Color YELLOW Urine Appearance SLIGHTLY-CLOUDY Urine pH 5.0 Ur Specific [place] 1.009 Urine Protein NEGATIVE Urine Glucose (UA) >=500 H Urine Ketones TRACE H Urine Blood SMALL H Urine RBC (Auto) 1 11/29/19 17:50 WBC RBC Hgb Hct MCV MCH MCHC RDW Plt Count Seg Neutrophils % Sodium Potassium Chloride Carbon Dioxide Anion Gap BUN Creatinine Est GFR ( Amer) Glucose Lactic Acid 0.9 Calcium Ferritin Total Bilirubin AST Alkaline Phosphatase C-Reactive Protein Total Protein Albumin Lipase Serum HCG, Qual Urine Color Urine Appearance Urine pH Ur Specific [place] Urine Protein Urine Glucose (UA) Urine Ketones Urine Blood Urine RBC (Auto) 11/29/19 14:47 Troponin I < 0.012 Impressions: Chest X-Ray 11/29/19 15:25 IMPRESSION: HEART ENLARGED WITHOUT FAILURE. NO OTHER SIGNIFICANT RADIOGRAPHIC FINDING IN THE CHEST. Chest/Abdomen CTA 11/29/19 16:59 IMPRESSION: 1. No central pulmonary embolism. 2. Commonly reported imaging features of (COVID-19 or viral) pneumonia are present. Other processes such as influenza pneumonia and organizing pneumonia, as can be seen with drug toxicity and connective tissue disease, can cause a similar imaging pattern. [PneTyp] Assessment and Plan - Diagnosis (1) Community acquired pneumonia, bilateral Is this a current diagnosis for this admission?: Yes (2) Suspected COVID-19 virus infection Is this a current diagnosis for this admission?: Yes (3) Acute respiratory failure with hypoxia Is this a current diagnosis for this admission?: Yes (4) Acute kidney injury (nontraumatic) Is this a current diagnosis for this admission?: Yes (5) Hyponatremia Is this a current diagnosis for this admission?: Yes (6) Fever Qualifiers: Fever type: unspecified Qualified Code(s): R50.9 - Fever, unspecified Is this a current diagnosis for this admission?: Yes (7) Chronic diastolic congestive heart failure Is this a current diagnosis for this admission?: Yes (8) Hypothyroidism Qualifiers: Hypothyroidism type: unspecified Qualified Code(s): E03.9 - Hypothyroidism, unspecified Is this a current diagnosis for this admission?: Yes (9) Paroxysmal atrial fibrillation Is this a current diagnosis for this admission?: Yes (10) Hypertension Qualifiers: Hypertension type: essential hypertension Qualified Code(s): I10 - Essential (primary) hypertension Is this a current diagnosis for this admission?: Yes (11) Diabetes mellitus type 2 in obese Is this a current diagnosis for this admission?: Yes (12) Morbid obesity with BMI of 40.0-44.9, adult Is this a current diagnosis for this admission?: Yes - Plan Summary Summary: Patient will be admitted to the medical floor where she will receive routine supportive and symptomatic cares. She will be treated with IV antibiotics utilizing Rocephin and azithromycin. She will receive supplemental oxygen via nasal cannula in order to maintain an adequate oxygen saturation. She will receive her usual inhaler medications for her chronic COPD/asthma. She will receive IV dexamethasone 10 mg initially followed by 6 mg/day. She will receive IV fluids with lactated Ringer's solution at 250 mL/h initially. She will receive morphine sulfate 2 to 4 mg IV every 2 hours as needed for pain. She will receive Ativan 1 mg IV every 4 hours as needed for anxiety or restlessness. Before meals and at bedtime Accu-Cheks will be performed with sliding scale insulin for hyperglycemia and a hypoglycemic protocol in place. Patient's usual home medications will be resumed, as appropriate, as soon as her medication list has been verified and reconciled. She will receive a diabetic, cardiac and prerenal restricted diet. - Time Time Spent with patient: Less than 15 minutes Medications reviewed and adjusted accordingly: Yes Anticipated Discharge Disposition: Home with Home Health Anticipated Discharge Timeframe: Undetermined - Inpatient Certification Based on my medical assessment, after consideration of the patient's comorbidities, presenting symptoms, or acuity I expect that the services needed warrant INPATIENT care.: Yes I certify that my determination is in accordance with my understanding of Medicare's requirements for reasonable and necessary INPATIENT services [42 CFR 412.3e].: Yes Medical Necessity: Significant Comorbidiites Make Outpatient Treatment Too Risky, Need Close Monitoring Due to Risk of Patient Decompensation, Need For IV Fluids, Need for IV Antibiotics, Risk of Complication if Not Cared For in Hospital, Risk of Diagnosis Which Will Require Inpatient Eval/Care/Monitoring
[2019-11-30] MEDS: RINGERS SOLUTION,LACTATED 1,000 ML IV PRN ×4 (04:17→20:04)
[2019-11-30] MEDS: DEXAMETHASONE SOD PHOSPHATE INJ 4 MG/1 ML VIAL IV SCH ×3 (05:49→21:25)
[2019-11-30 07:02] LABS: HEMATOCRIT 36.8 % (36.0-47.0); HEMOGLOBIN 12.2 g/dL (12.0-15.5); MEAN CORPUSCULAR HEMOGLOBIN 31.4 pg (27.0-33.4); MEAN CORPUSCULAR HGB CONC 33.3 g/dL (32.0-36.0); MEAN CORPUSCULAR VOLUME 94 fl (80-97); PLATELET COUNT 314 10^3/uL (150-450); RED CELL DISTRIBUTION WIDTH 15.1 % (11.5-14.0); WHITE BLOOD COUNT 8.6 10^3/uL (4.0-10.5)
[2019-11-30 07:30] LABS: ALBUMIN 3.4 g/dL (3.5-5.0); ALKALINE PHOSPHATASE 115 U/L (38-126); ANION GAP 12 (5-19); ASPARTATE AMINO TRANSFERASE 25 U/L (14-36); BILIRUBIN,DIRECT 0.5 mg/dL (0.0-0.4); BILIRUBIN,TOTAL 0.6 mg/dL (0.2-1.3); BLOOD UREA NITROGEN 9 mg/dL (7-20); CARBON DIOXIDE 24 mmol/L (22-30); CHLORIDE 99 mmol/L (98-107); GLUCOSE 161 mg/dL (75-110); POTASSIUM 4.6 mmol/L (3.6-5.0); TOTAL PROTEIN 5.7 g/dL (6.3-8.2)
[2019-11-30] MEDS ORDERED: ONDANSETRON HCL INJ/PF 4 MG/2 ML SDV IV ONE (07:40)
[2019-11-30] MEDS: INSULIN REG, HUMAN 100 UNIT/ML 3 ML VIAL (PYX) SUBCUT SCH ×5 (08:16→21:25)
[2019-11-30] MEDS: APIXABAN 5 MG TABLET PO SCH ×2 (10:09→18:42)
[2019-11-30] MEDS: DOCUSATE SODIUM 100 MG CAPSULE PO SCH ×2 (10:09→18:42)
[2019-11-30] MEDS: FAMOTIDINE 20 MG TABLET PO SCH ×2 (10:09→21:24)
[2019-11-30] MEDS: LORAZEPAM INJ 2 MG/1 ML VIAL IV PRN (16:27)
[2019-11-30] MEDS: CEFTRIAXONE 1 GM/D5W RTU 1 GM/50 ML RTUPB IV SCH (18:42)
[2019-11-30] MEDS ORDERED: OXYCODONE-ACETAMINOPHEN 5-325 MG TABLET PO PRN (19:15)
[2019-11-30] MEDS ORDERED: FUROSEMIDE 20 MG TABLET PO ONE (19:19)
--- NOTE | 2019-11-30 19:20 | PDOC PROGRESS REPORT ---
Subjective Progress Note for:: 11/30/19 Subjective:: sobbing today. Reason For Visit: COMMUNITY ACQUIRED BILATERAL MULTIFOCAL PNEUMONIA, Physical Exam Vital Signs: Temp Pulse Resp BP Pulse Ox 98.2 F 83 24 H 128/90 H 93 11/30/19 17:02 11/29/19 14:57 11/30/19 17:01 11/30/19 17:01 11/30/19 17:01 Intake & Output 11/29/19 11/30/19 12/01/19 06:59 06:59 06:59 Intake Total 2770 3200 Output Total 1600 Balance 2770 1600 Weight 108.862 kg 110.7 kg Respiratory exam: PRESENT: rales - right base Cardiovascular exam: PRESENT: RRR, +S1, +S2 Results Laboratory Results: 11/30/19 06:33 11/30/19 06:33 11/29/19 11/29/19 11/30/19 14:47 21:36 06:33 WBC 8.6 RBC 3.90 Hgb 12.2 Hct 36.8 MCV 94 MCH 31.4 MCHC 33.3 RDW 15.1 H Plt Count 314 Sodium Potassium Chloride Carbon Dioxide Anion Gap BUN Creatinine Est GFR ( Amer) Glucose Lactic Acid 0.9 Calcium Ferritin 93.30 Total Bilirubin AST Alkaline Phosphatase Total Protein Albumin 11/30/19 06:33 WBC RBC Hgb Hct MCV MCH MCHC RDW Plt Count Sodium 135.4 L Potassium 4.6 Chloride 99 Carbon Dioxide 24 Anion Gap 12 BUN 9 Creatinine 0.88 Est GFR ( Amer) > 60 Glucose 161 H Lactic Acid Calcium 8.0 L Ferritin Total Bilirubin 0.6 AST 25 Alkaline Phosphatase 115 Total Protein 5.7 L Albumin 3.4 L 11/29/19 14:47 Clean Catch Midstream Urine Culture - Final Group G Beta Streptococcus 11/29/19 14:47 Troponin I < 0.012 Impressions: Chest X-Ray 11/29/19 15:25 IMPRESSION: HEART ENLARGED WITHOUT FAILURE. NO OTHER SIGNIFICANT RADIOGRAPHIC FINDING IN THE CHEST. Chest/Abdomen CTA 11/29/19 16:59 IMPRESSION: 1. No central pulmonary embolism. 2. Commonly reported imaging features of (COVID-19 or viral) pneumonia are present. Other processes such as influenza pneumonia and organizing pneumonia, as can be seen with drug toxicity and connective tissue disease, can cause a similar imaging pattern. [PneTyp] Assessment and Plan - Diagnosis (1) Acute respiratory failure with hypoxia Is this a current diagnosis for this admission?: Yes Plan: Still requiring oxygen supplementation. Goal is to maintain saturation greater than 90%. (2) Community acquired pneumonia, bilateral Is this a current diagnosis for this admission?: Yes Plan: Based on CT scan. She is afebrile today. White count has always been normal. Requiring supplemental oxygen. Currently on antibiotic therapy. Await COVID serology. (3) Suspected COVID-19 virus infection Is this a current diagnosis for this admission?: Yes Plan: Based on presentation, COVID suspicion is high. Continue current treatment regimen and await results of COVID testing (4) UTI (urinary tract infection) Qualifiers: Urinary tract infection type: site unspecified Hematuria presence: without hematuria Qualified Code(s): N39.0 - Urinary tract infection, site not specified Is this a current diagnosis for this admission?: Yes Plan: Beta-hemolytic strep identified. The patient is allergic to penicillin but the ceftriaxone should be effective. (5) Hyponatremia Is this a current diagnosis for this admission?: Yes Plan: Very mild. Could be consistent with her chronic diastolic heart failure. Will monitor with laboratory studies (6) Chronic diastolic congestive heart failure Is this a current diagnosis for this admission?: Yes Plan: No evidence of acute failure. Continue home medication regimen and monitor intake and output (7) Fever Qualifiers: Fever type: unspecified Qualified Code(s): R50.9 - Fever, unspecified Is this a current diagnosis for this admission?: Yes Plan: Afebrile today (8) Paroxysmal atrial fibrillation Is this a current diagnosis for this admission?: Yes Plan: Good rate control. Continue anticoagulation and beta-cesar (9) Hyperglycemia due to diabetes mellitus Is this a current diagnosis for this admission?: Yes (10) Hypertension Qualifiers: Hypertension type: essential hypertension Qualified Code(s): I10 - Essential (primary) hypertension Is this a current diagnosis for this admission?: Yes Plan: Mild elevation of blood pressure. Continue current regimen. We will adjust medications based on vital signs (11) Morbid obesity with BMI of 40.0-44.9, adult Is this a current diagnosis for this admission?: Yes Plan: BMI is 43. It would help significantly with weight loss. Initial efforts should be with strict diet management and then incorporate exercise (12) Schizoaffective disorder Qualifiers: Schizoaffective disorder type: unspecified Qualified Code(s): F25.9 - Schizoaffective disorder, unspecified Is this a current diagnosis for this admission?: Yes Plan: Continue antipsychotic and antidepressant medications - Plan Summary Summary: Patient will be admitted to the medical floor where she will receive routine supportive and symptomatic cares. She will be treated with IV antibiotics utilizing Rocephin and azithromycin. She will receive supplemental oxygen via nasal cannula in order to maintain an adequate oxygen saturation. She will re ceive her usual inhaler medications for her chronic COPD/asthma. She will receive IV dexamethasone 10 mg initially followed by 6 mg/day. She will receive IV fluids with lactated Ringer's solution at 250 mL/h initially. She will receive morphine sulfate 2 to 4 mg IV every 2 hours as needed for pain. She will receive Ativan 1 mg IV every 4 hours as needed for anxiety or restlessness. Before meals and at bedtime Accu-Cheks will be performed with sliding scale insulin for hyperglycemia and a hypoglycemic protocol in place. Patient's usual home medications will be resumed, as appropriate, as soon as her medication list has been verified and reconciled. She will receive a diabetic, cardiac and prerenal restricted diet. - Time Time Spent with patient: 15-24 minutes Medications reviewed and adjusted accordingly: Yes Anticipated Discharge Disposition: Home with Home Health Anticipated Discharge Timeframe: within 72 hours
[2019-11-30] MEDS ORDERED: AZITHROMYCIN INJ 500 MG VIAL IV ONE (21:09)
[2019-11-30] MEDS: TIZANIDINE HCL 4 MG TABLET PO SCH (21:23)
[2019-11-30] MEDS: DIPHENHYDRAMINE HCL 50 MG CAPSULE PO SCH (21:24)
[2019-11-30] MEDS: AMITRIPTYLINE HCL 25 MG TABLET PO SCH (21:24)
[2019-11-30] MEDS: METOPROLOL SUCCINATE 25 MG TAB.SR.24H PO SCH (21:28)
[2019-11-30] MEDS: AZITHROMYCIN 500 MG in DEXTROSE 5%-WATER 250 ML IV SCH (21:34)
[2019-11-30] MEDS: ALPRAZOLAM 0.5 MG TABLET PO SCH (21:56)
[2019-11-30] MEDS ORDERED: (PENDING PHARMACY ID) (Pregabalin [Lyrica] 225 MG) PO SCH (22:00)
[2019-11-30] MEDS ORDERED: (PENDING PHARMACY ID) (Brexpiprazole [Rexulti] 2 MG) PO SCH (22:00)
[2019-11-30] MEDS: PREGABALIN 75 MG CAPSULE PO SCH (23:14)
[2019-12-01] MEDS: DEXAMETHASONE SOD PHOSPHATE INJ 4 MG/1 ML VIAL IV SCH ×3 (05:20→23:00)
[2019-12-01] MEDS: TIZANIDINE HCL 4 MG TABLET PO SCH ×2 (05:20→13:11)
[2019-12-01] MEDS: ALPRAZOLAM 0.5 MG TABLET PO SCH ×2 (05:29→13:12)
[2019-12-01] MEDS: ACETAMINOPHEN 325 MG TABLET PO PRN ×2 (05:58→20:12)
[2019-12-01] MEDS: RINGERS SOLUTION,LACTATED 1,000 ML IV PRN (08:22)
[2019-12-01] MEDS: INSULIN REG, HUMAN 100 UNIT/ML 3 ML VIAL (PYX) SUBCUT SCH ×4 (08:22→23:00)
[2019-12-01] MEDS ORDERED: GLIPIZIDE XL 5 MG TAB.ER.24 PO SCH (10:00)
[2019-12-01] MEDS ORDERED: FLOVENT 220 MCG IH SCH (10:00)
[2019-12-01] MEDS: DOCUSATE SODIUM 100 MG CAPSULE PO SCH ×2 (10:39→18:10)
[2019-12-01] MEDS: APIXABAN 5 MG TABLET PO SCH (11:11)
[2019-12-01] MEDS: METOPROLOL SUCCINATE 25 MG TAB.SR.24H PO SCH ×2 (11:11→22:59)
[2019-12-01] MEDS: FAMOTIDINE 20 MG TABLET PO SCH ×2 (11:11→22:59)
[2019-12-01] MEDS: LISINOPRIL 5 MG TABLET PO SCH (11:11)
[2019-12-01] MEDS: PREGABALIN 75 MG CAPSULE PO SCH ×2 (11:11→23:00)
[2019-12-01] MEDS ORDERED: DILTIAZEM HCL 60 MG TABLET PO ONE (12:26)
[2019-12-01] MEDS ORDERED: MORPHINE SULFATE 10 MG/ML INJ IV PRN (16:54)
[2019-12-01] MEDS ORDERED: ALBUTEROL SULFATE HFA (90 MCG/PUFF) 8 GM MDI IH PRN (16:57)
[2019-12-01] MEDS ORDERED: TIZANIDINE HCL 4 MG TABLET PO PRN (17:01)
--- NOTE | 2019-12-01 17:11 | PDOC PROGRESS REPORT ---
Subjective Progress Note for:: 12/01/19 Subjective:: Patient appears much more ill than yesterday. Doing poorly after transfer from the emergency department. Oxygen saturations dropped into the 70% range. She is tachypneic. She is extremely anxious. Reason For Visit: COMMUNITY ACQUIRED BILATERAL MULTIFOCAL PNEUMONIA, Physical Exam Vital Signs: Temp Pulse Resp BP Pulse Ox 98.2 F 85 25 H 148/72 H 93 12/01/19 10:35 12/01/19 10:35 12/01/19 10:35 12/01/19 10:35 12/01/19 10:35 Intake & Output 11/30/19 12/01/19 12/02/19 06:59 06:59 06:59 Intake Total 2770 4277 1473 Output Total 2350 Balance 2770 1927 1473 Weight 108.862 kg 110.7 kg General appearance: PRESENT: morbidly obese, severe distress Head exam: PRESENT: atraumatic, normocephalic Respiratory exam: PRESENT: symmetrical, tachypnea, wheezes - Audible at the bedside Cardiovascular exam: PRESENT: +S1, +S2, tachycardia GI/Abdominal exam: PRESENT: diminished bowel sounds, soft. ABSENT: tenderness Rectal exam: PRESENT: deferred Gentrourinary exam: ABSENT: indwelling catheter Musculoskeletal exam: ABSENT: deformity, dislocation Neurological exam: PRESENT: altered - Somewhat confused due to the acute illness and hypoxia, awake, other - Difficult to completely assess at this time Psychiatric exam: PRESENT: agitated - Trying to set up as it is very hard to breathe Results Laboratory Results: 11/30/19 06:33 11/30/19 06:33 11/29/19 14:47 Troponin I < 0.012 Impressions: Chest X-Ray 11/29/19 15:25 IMPRESSION: HEART ENLARGED WITHOUT FAILURE. NO OTHER SIGNIFICANT RADIOGRAPHIC FINDING IN THE CHEST. Chest/Abdomen CTA 11/29/19 16:59 IMPRESSION: 1. No central pulmonary embolism. 2. Commonly reported imaging features of (COVID-19 or viral) pneumonia are present. Other processes such as influenza pneumonia and organizing pneumonia, as can be seen with drug toxicity and connective tissue disease, can cause a similar imaging pattern. [PneTyp] Assessment and Plan - Diagnosis (1) Pneumonia due to SARS-associated coronavirus Is this a current diagnosis for this admission?: Yes Plan: The patient has declined from yesterday. She is extremely wheezy and short of breath. She was positive for coronavirus. She is decompensating. We will increase oxygen supplement and monitor closely. Remdesivir added today. (2) Acute respiratory failure with hypoxia Is this a current diagnosis for this admission?: Yes Plan: Secondary to coronavirus pneumonia. Continue oxygen supplementation. (3) Community acquired pneumonia, bilateral Is this a current diagnosis for this admission?: Yes Plan: Patient tested positive for babin virus. Continue current medications (4) UTI (urinary tract infection) Qualifiers: Urinary tract infection type: site unspecified Hematuria presence: without hematuria Qualified Code(s): N39.0 - Urinary tract infection, site not specified Is this a current diagnosis for this admission?: Yes Plan: Group G strep. Covered by current antibiotic regimen. (5) Hyponatremia Is this a current diagnosis for this admission?: Yes Plan: Serum sodium is 135. Recheck tomorrow. (6) Chronic diastolic congestive heart failure Is this a current diagnosis for this admission?: Yes Plan: The patient did receive a form of IV fluid. I have currently put that on hold and will start Lasix 20 mg daily to avoid volume overload (7) Fever Qualifiers: Fever type: unspecified Qualified Code(s): R50.9 - Fever, unspecified Is this a current diagnosis for this admission?: Yes Plan: Has been afebrile for 48 hours but this morning spiked a temperature to 102.3. Acetaminophen as needed. (8) Paroxysmal atrial fibrillation Is this a current diagnosis for this admission?: Yes Plan: Continue metoprolol. Lovenox therapy initiated and the apixaban will be held (9) Hyperglycemia due to diabetes mellitus Is this a current diagnosis for this admission?: Yes Plan: We will utilize sliding scale coverage with Accu-Cheks before meals and at bedtime. She is on multiple medications previously. Will monitor closely and adjust medications based on her Accu-Cheks (10) Hypertension Qualifiers: Hypertension type: essential hypertension Qualified Code(s): I10 - Essential (primary) hypertension Is this a current diagnosis for this admission?: Yes Plan: On multiple medications. May need to adjust the treatment plan based on her ability to swallow. IV medications will be available as well. (11) Morbid obesity with BMI of 40.0-44.9, adult Is this a current diagnosis for this admission?: Yes Plan: Unfortunately a very significant comorbidity with her current respiratory state (12) Schizoaffective disorder Qualifiers: Schizoaffective disorder type: unspecified Qualified Code(s): F25.9 - Schizoaffective disorder, unspecified Is this a current diagnosis for this admission?: Yes Plan: We will try to continue her normal medication regimen. Her daughter did drop off her medications and this will benefit the patient for anything not on the formulary. - Plan Summary Summary: Patient will be admitted to the medical floor where she will receive routine supportive and symptomatic cares. She will be treated with IV antibiotics utilizing Rocephin and azithromycin. She will receive supplemental oxygen via nasal cannula in order to maintain an adequate oxygen saturation. She will receive her usual inhaler medications for her chronic COPD/asthma. She will receive IV dexamethasone 10 mg initially followed by 6 mg/day. She will receive IV fluids with lactated Ringer's solution at 250 mL/h initially. She will receive morphine sulfate 2 to 4 mg IV every 2 hours as needed for pain. She will receive Ativan 1 mg IV every 4 hours as needed for anxiety or restlessness. Before meals and at bedtime Accu-Cheks will be performed with sliding scale insulin for hyperglycemia and a hypoglycemic protocol in place. Patient's usual home medications will be resumed, as appropriate, as soon as her medication list has been verified and reconciled. She will receive a diabetic, cardiac and prerenal restricted diet. - Time Time Spent with patient: 25-34 minutes Medications reviewed and adjusted accordingly: Yes Anticipated Discharge Disposition: Unknown Anticipated Discharge Timeframe: Unknown
[2019-12-01] MEDS ORDERED: REMDESIVIR (EUA) 200 MG in NORMAL SALINE 250 ML IV ONE (18:00)
[2019-12-01] MEDS ORDERED: PREGABALIN 75 MG CAPSULE PO SCH (18:00)
[2019-12-01] MEDS: CEFTRIAXONE 1 GM/D5W RTU 1 GM/50 ML RTUPB IV SCH (18:07)
[2019-12-01] MEDS: ASCORBIC ACID 500 MG TABLET PO SCH (18:09)
[2019-12-01] MEDS: NYSTATIN CREAM 15 GM TP SCH (20:13)
[2019-12-01] MEDS ORDERED: DILTIAZEM HCL 120 MG CAP.SR.24H PO SCH (22:00)
[2019-12-01] MEDS: DIPHENHYDRAMINE HCL 50 MG CAPSULE PO SCH (22:59)
[2019-12-01] MEDS: ENOXAPARIN SODIUM INJ 120 MG/0.8 ML DISP.SYRIN SUBCUT SCH (23:00)
[2019-12-01] MEDS: AZITHROMYCIN 500 MG in DEXTROSE 5%-WATER 250 ML IV SCH (23:01)
[2019-12-01] MEDS: AMITRIPTYLINE HCL 25 MG TABLET PO SCH (23:01)
[2019-12-01] MEDS: FUROSEMIDE INJ/PF 20 MG/2 ML SDV IV SCH (23:02)
[2019-12-02] MEDS: DEXAMETHASONE SOD PHOSPHATE INJ 4 MG/1 ML VIAL IV SCH ×3 (05:10→21:22)
[2019-12-02 07:00] LABS: HEMATOCRIT 37.2 % (36.0-47.0); HEMOGLOBIN 11.9 g/dL (12.0-15.5); MEAN CORPUSCULAR HEMOGLOBIN 29.7 pg (27.0-33.4); MEAN CORPUSCULAR VOLUME 93 fl (80-97); PLATELET COUNT 338 10^3/uL (150-450); RED BLOOD COUNT 4.01 10^6/uL (3.72-5.28); RED CELL DISTRIBUTION WIDTH 15.1 % (11.5-14.0); WHITE BLOOD COUNT 15.3 10^3/uL (4.0-10.5)
[2019-12-02 07:09] LABS: ALBUMIN 3.3 g/dL (3.5-5.0); ALKALINE PHOSPHATASE 117 U/L (38-126); ANION GAP 10 (5-19); ASPARTATE AMINO TRANSFERASE 30 U/L (14-36); BILIRUBIN,DIRECT 0.4 mg/dL (0.0-0.4); BILIRUBIN,TOTAL 0.6 mg/dL (0.2-1.3); BLOOD UREA NITROGEN 18 mg/dL (7-20); CALCIUM 8.8 mg/dL (8.4-10.2); CARBON DIOXIDE 27 mmol/L (22-30); CHLORIDE 96 mmol/L (98-107); GLUCOSE 204 mg/dL (75-110); POTASSIUM 4.6 mmol/L (3.6-5.0)
[2019-12-02] MEDS: INSULIN REG, HUMAN 100 UNIT/ML 3 ML VIAL (PYX) SUBCUT SCH ×4 (08:38→21:21)
[2019-12-02] MEDS: FUROSEMIDE INJ/PF 20 MG/2 ML SDV IV SCH (09:46)
[2019-12-02] MEDS: FAMOTIDINE 20 MG TABLET PO SCH ×2 (09:46→21:22)
[2019-12-02] MEDS: PREGABALIN 75 MG CAPSULE PO SCH ×2 (09:46→21:22)
[2019-12-02] MEDS: LORAZEPAM INJ 2 MG/1 ML VIAL IV PRN (09:46)
[2019-12-02] MEDS: ASCORBIC ACID 500 MG TABLET PO SCH ×2 (09:46→17:00)
[2019-12-02] MEDS: LISINOPRIL 5 MG TABLET PO SCH (09:46)
[2019-12-02] MEDS: METOPROLOL SUCCINATE 25 MG TAB.SR.24H PO SCH ×2 (09:47→21:24)
[2019-12-02] MEDS: DOCUSATE SODIUM 100 MG CAPSULE PO SCH ×2 (09:47→18:25)
[2019-12-02] MEDS: CHOLECALCIFEROL (D3) 1,000 UNIT (25 MCG) TABLET PO SCH (09:47)
[2019-12-02] MEDS: ENOXAPARIN SODIUM INJ 120 MG/0.8 ML DISP.SYRIN SUBCUT SCH ×2 (09:48→21:21)
[2019-12-02] MEDS: NYSTATIN CREAM 15 GM TP SCH ×3 (09:50→17:00)
--- NOTE | 2019-12-02 16:29 | PDOC PROGRESS REPORT ---
Subjective Progress Note for:: 12/02/19 Subjective:: Resting in the chair. Still on nasal cannula but off of the nonrebreather mask. States that she feels comfortable and wants to go home. Reason For Visit: COMMUNITY ACQUIRED BILATERAL MULTIFOCAL PNEUMONIA, Physical Exam Vital Signs: Temp Pulse Resp BP Pulse Ox 98.9 F 89 22 H 111/73 100 12/02/19 13:20 12/02/19 14:00 12/02/19 13:20 12/02/19 13:20 12/02/19 13:20 Intake & Output 12/01/19 12/02/19 12/03/19 06:59 06:59 06:59 Intake Total 4277 2273 237 Output Total 2350 1400 300 Balance 1927 873 -63 Weight 110.7 kg 111.2 kg General appearance: PRESENT: cooperative, mild distress, morbidly obese Head exam: PRESENT: atraumatic, normocephalic Teeth exam: PRESENT: edentulous Respiratory exam: PRESENT: rales - Bilateral, symmetrical, other - Very limited inspiratory phase. ABSENT: rhonchi, tachypnea, wheezes Cardiovascular exam: PRESENT: RRR, +S1, +S2. ABSENT: bradycardia, diastolic murmur, irregular rhythm, systolic murmur, tachycardia GI/Abdominal exam: PRESENT: normal bowel sounds, soft, other - Protuberant abdomen. ABSENT: tenderness Rectal exam: PRESENT: deferred Gentrourinary exam: ABSENT: indwelling catheter Extremities exam: PRESENT: pedal edema, +1 edema Musculoskeletal exam: PRESENT: normal inspection. ABSENT: deformity, dislocation Neurological exam: PRESENT: alert, awake, oriented to person, oriented to place, oriented to situation Psychiatric exam: PRESENT: unusual affect - Patient appears to have some developmental delay. She kept her eyes closed during the entire encounter. She asked if she was going home multiple times despite answering the question each time. Focused psych exam: ABSENT: delusional, paranoid, restlessness Skin exam: PRESENT: dry, warm. ABSENT: rash Results Laboratory Results: 12/02/19 06:12 12/02/19 06:12 12/02/19 12/02/19 06:12 06:12 WBC 15.3 H RBC 4.01 Hgb 11.9 L Hct 37.2 MCV 93 MCH 29.7 MCHC 32.0 RDW 15.1 H Plt Count 338 Sodium 132.7 L Potassium 4.6 Chloride 96 L Carbon Dioxide 27 Anion Gap 10 BUN 18 Creatinine 1.04 Est GFR ( Amer) > 60 Glucose 204 H Calcium 8.8 Magnesium 2.0 Total Bilirubin 0.6 AST 30 Alkaline Phosphatase 117 C-Reactive Protein 253.0 H Total Protein 6.0 L Albumin 3.3 L 11/29/19 14:47 Troponin I < 0.012 Impressions: Chest X-Ray 11/29/19 15:25 IMPRESSION: HEART ENLARGED WITHOUT FAILURE. NO OTHER SIGNIFICANT RADIOGRAPHIC FINDING IN THE CHEST. Chest/Abdomen CTA 11/29/19 16:59 IMPRESSION: 1. No central pulmonary embolism. 2. Commonly reported imaging features of (COVID-19 or viral) pneumonia are present. Other processes such as influenza pneumonia and organizing pneumonia, as can be seen with drug toxicity and connective tissue disease, can cause a similar imaging pattern. [PneTyp] Assessment and Plan - Diagnosis (1) Pneumonia due to SARS-associated coronavirus Is this a current diagnosis for this admission?: Yes Plan: Continue azithromycin as well as remdisivir. Continue supplements as well as oxygen supplementation. (2) Acute respiratory failure with hypoxia Is this a current diagnosis for this admission?: Yes Plan: Still requires 4 L nasal cannula. Goal would be to maintain saturations between 90 and 94% (3) UTI (urinary tract infection) Qualifiers: Urinary tract infection type: site unspecified Hematuria presence: without hematuria Qualified Code(s): N39.0 - Urinary tract infection, site not specified Is this a current diagnosis for this admission?: Yes Plan: Group G strep covered by Rocephin (4) Hyponatremia Is this a current diagnosis for this admission?: Yes Plan: Sodium slightly lower than yesterday. Continue to monitor. (5) Chronic diastolic congestive heart failure Is this a current diagnosis for this admission?: Yes Plan: Monitor fluids with intake and output. This will be very difficult without a Mendoza catheter. The patient kept pulling it out. (6) Fever Qualifiers: Fever type: unspecified Qualified Code(s): R50.9 - Fever, unspecified Is this a current diagnosis for this admission?: Yes Plan: Afebrile today continue to monitor (7) Paroxysmal atrial fibrillation Is this a current diagnosis for this admission?: Yes Plan: Continue current medications and monitor on telemetry (8) Hyperglycemia due to diabetes mellitus Is this a current diagnosis for this admission?: Yes Plan: Continue Accu-Cheks and sliding scale coverage (9) Hypertension Qualifiers: Hypertension type: essential hypertension Qualified Code(s): I10 - Essential (primary) hypertension Is this a current diagnosis for this admission?: Yes Plan: Continue current medications. Monitor for drops in blood pressure. (10) Morbid obesity with BMI of 40.0-44.9, adult Is this a current diagnosis for this admission?: Yes Plan: Unfortunately a very significant comorbidity with her current respiratory state (11) Schizoaffective disorder Qualifiers: Schizoaffective disorder type: unspecified Qualified Code(s): F25.9 - Schizoaffective disorder, unspecified Is this a current diagnosis for this admission?: Yes Plan: Review medications brought in by the patient's daughter. Try to keep her on her normal regimen. (12) Community acquired pneumonia, bilateral Is this a current diagnosis for this admission?: Yes Plan: Her pneumonia is caused by COVID virus - Plan Summary Summary: Patient will be admitted to the medical floor where she will receive routine supportive and symptomatic cares. She will be treated with IV antibiotics utilizing Rocephin and azithromycin. She will receive supplemental oxygen via nasal cannula in order to maintain an adequate oxygen saturation. She will receive her usual inhaler medications for her chronic COPD/asthma. She will receive IV dexamethasone 10 mg initially followed by 6 mg/day. She will receive IV fluids with lactated Ringer's solution at 250 mL/h initially. She will receive morphine sulfate 2 to 4 mg IV every 2 hours as needed for pain. She will receive Ativan 1 mg IV every 4 hours as needed for anxiety or restlessness. Before meals and at bedtime Accu-Cheks will be performed with sliding scale insulin for hyperglycemia and a hypoglycemic protocol in place. Patient's usual home medications will be resumed, as appropriate, as soon as her medication list has been verified and reconciled. She will receive a diabetic, cardiac and prerenal restricted diet. - Time Time Spent with patient: 15-24 minutes Medications reviewed and adjusted accordingly: Yes Anticipated Discharge Disposition: Home with Home Health Anticipated Discharge Timeframe: Unknown
[2019-12-02] MEDS: CEFTRIAXONE 1 GM/D5W RTU 1 GM/50 ML RTUPB IV SCH (17:00)
[2019-12-02] MEDS: AZITHROMYCIN 500 MG in DEXTROSE 5%-WATER 250 ML IV SCH (21:22)
[2019-12-02] MEDS: AMITRIPTYLINE HCL 25 MG TABLET PO SCH (21:24)
[2019-12-02] MEDS: DIPHENHYDRAMINE HCL 50 MG CAPSULE PO SCH (21:24)
[2019-12-03] MEDS: REMDESIVIR (EUA) 100 MG in NORMAL SALINE 250 ML IV SCH ×2 (00:27→22:39)
[2019-12-03] MEDS: DEXAMETHASONE SOD PHOSPHATE INJ 4 MG/1 ML VIAL IV SCH ×3 (05:09→21:10)
[2019-12-03 06:53] LABS: HEMATOCRIT 35.4 % (36.0-47.0); HEMOGLOBIN 11.6 g/dL (12.0-15.5); MEAN CORPUSCULAR HEMOGLOBIN 30.4 pg (27.0-33.4); MEAN CORPUSCULAR HGB CONC 32.8 g/dL (32.0-36.0); MEAN CORPUSCULAR VOLUME 93 fl (80-97); PLATELET COUNT 354 10^3/uL (150-450); RED BLOOD COUNT 3.82 10^6/uL (3.72-5.28); RED CELL DISTRIBUTION WIDTH 15.5 % (11.5-14.0); WHITE BLOOD COUNT 11.3 10^3/uL (4.0-10.5)
[2019-12-03 07:14] LABS: ALKALINE PHOSPHATASE 96 U/L (38-126); ANION GAP 11 (5-19); ASPARTATE AMINO TRANSFERASE 27 U/L (14-36); BILIRUBIN,DIRECT 0.4 mg/dL (0.0-0.4); BILIRUBIN,TOTAL 0.5 mg/dL (0.2-1.3); BLOOD UREA NITROGEN 17 mg/dL (7-20); CALCIUM 8.7 mg/dL (8.4-10.2); CARBON DIOXIDE 28 mmol/L (22-30); CHLORIDE 96 mmol/L (98-107); GLUCOSE 223 mg/dL (75-110); POTASSIUM 4.3 mmol/L (3.6-5.0); TOTAL PROTEIN 5.7 g/dL (6.3-8.2)
[2019-12-03] MEDS: METOPROLOL SUCCINATE 25 MG TAB.SR.24H PO SCH ×2 (09:37→21:11)
[2019-12-03] MEDS: DOCUSATE SODIUM 100 MG CAPSULE PO SCH ×2 (09:37→17:40)
[2019-12-03] MEDS: LISINOPRIL 5 MG TABLET PO SCH (09:37)
[2019-12-03] MEDS: PREGABALIN 75 MG CAPSULE PO SCH ×2 (09:37→21:11)
[2019-12-03] MEDS: CHOLECALCIFEROL (D3) 1,000 UNIT (25 MCG) TABLET PO SCH (09:37)
[2019-12-03] MEDS: FAMOTIDINE 20 MG TABLET PO SCH ×2 (09:37→21:11)
[2019-12-03] MEDS: ASCORBIC ACID 500 MG TABLET PO SCH ×2 (09:37→17:40)
[2019-12-03] MEDS: FUROSEMIDE INJ/PF 20 MG/2 ML SDV IV SCH (09:37)
[2019-12-03] MEDS: ENOXAPARIN SODIUM INJ 120 MG/0.8 ML DISP.SYRIN SUBCUT SCH ×2 (09:38→21:10)
[2019-12-03] MEDS: INSULIN REG, HUMAN 100 UNIT/ML 3 ML VIAL (PYX) SUBCUT SCH ×4 (09:42→21:10)
[2019-12-03] MEDS: NYSTATIN CREAM 15 GM TP SCH ×2 (12:57→17:42)
--- NOTE | 2019-12-03 14:34 | PDOC PROGRESS REPORT ---
Subjective Progress Note for:: 12/03/19 Subjective:: The patient is resting in bed. She is more comfortable than yesterday. He states that she did not sleep well last night. She remains on 5 to 6 L nasal cannula. Nurse also reports that the patient complained of just feeling achy all over earlier. Reason For Visit: COMMUNITY ACQUIRED BILATERAL MULTIFOCAL PNEUMONIA, Physical Exam Vital Signs: Temp Pulse Resp BP Pulse Ox 97.8 F 58 L 20 141/73 H 92 12/03/19 11:23 12/03/19 13:50 12/03/19 11:23 12/03/19 11:23 12/03/19 11:23 Intake & Output 12/02/19 12/03/19 12/04/19 06:59 06:59 06:59 Intake Total 2273 1037 120 Output Total 1400 700 Balance 873 337 120 Weight 111.2 kg 109.6 kg General appearance: PRESENT: no acute distress, cooperative, morbidly obese, well-developed Head exam: PRESENT: atraumatic, normocephalic Eye exam: PRESENT: other - Barely opens her eyes during the discussion Ear exam: PRESENT: normal external ear exam. ABSENT: bleeding, drainage Respiratory exam: PRESENT: rales - Faint, symmetrical, unlabored, other - Still somewhat limited inspiratory phase.. ABSENT: rhonchi, tachypnea, wheezes Cardiovascular exam: PRESENT: RRR, +S1, +S2. ABSENT: bradycardia, diastolic murmur, irregular rhythm, systolic murmur, tachycardia GI/Abdominal exam: PRESENT: normal bowel sounds, soft. ABSENT: tenderness Rectal exam: PRESENT: deferred Gentrourinary exam: ABSENT: indwelling catheter Extremities exam: ABSENT: pedal edema Musculoskeletal exam: PRESENT: ambulatory - Still very weak with ambulation, normal inspection. ABSENT: deformity, dislocation Neurological exam: PRESENT: awake, oriented to person, oriented to place, oriented to situation. ABSENT: alert - Still somewhat sleepy Psychiatric exam: PRESENT: unusual affect. ABSENT: agitated, anxious Focused psych exam: ABSENT: delusional, paranoid, restlessness Skin exam: PRESENT: dry, warm. ABSENT: rash Results Laboratory Results: 12/03/19 06:40 12/03/19 06:40 12/03/19 12/03/19 06:40 06:40 WBC 11.3 H RBC 3.82 Hgb 11.6 L Hct 35.4 L MCV 93 MCH 30.4 MCHC 32.8 RDW 15.5 H Plt Count 354 Sodium 135.0 L Potassium 4.3 Chloride 96 L Carbon Dioxide 28 Anion Gap 11 BUN 17 Creatinine 0.83 Est GFR ( Amer) > 60 Glucose 223 H Calcium 8.7 Magnesium 2.0 Total Bilirubin 0.5 AST 27 Alkaline Phosphatase 96 C-Reactive Protein 229.0 H Total Protein 5.7 L Albumin 3.0 L 11/29/19 14:47 Troponin I < 0.012 Impressions: Chest X-Ray 11/29/19 15:25 IMPRESSION: HEART ENLARGED WITHOUT FAILURE. NO OTHER SIGNIFICANT RADIOGRAPHIC FINDING IN THE CHEST. Chest/Abdomen CTA 11/29/19 16:59 IMPRESSION: 1. No central pulmonary embolism. 2. Commonly reported imaging features of (COVID-19 or viral) pneumonia are present. Other processes such as influenza pneumonia and organizing pneumonia, as can be seen with drug toxicity and connective tissue disease, can cause a similar imaging pattern. [PneTyp] Assessment and Plan - Diagnosis (1) Pneumonia due to SARS-associated coronavirus Is this a current diagnosis for this admission?: Yes Plan: Still with high oxygen needs. Breathing comfortably. No wheezes today. Still asking when she is going home but was more receptive to the discussion today. Continue current antibiotic/antiviral regimen. (2) Acute respiratory failure with hypoxia Is this a current diagnosis for this admission?: Yes Plan: Treatment for COVID pneumonia as above. Slowly taper oxygen to room air. (3) UTI (urinary tract infection) Qualifiers: Urinary tract infection type: site unspecified Hematuria presence: without hematuria Qualified Code(s): N39.0 - Urinary tract infection, site not specified Is this a current diagnosis for this admission?: Yes Plan: Will be adequately treated with ceftriaxone (4) Hyponatremia Is this a current diagnosis for this admission?: Yes Plan: Still with very mild low sodium. Continue to monitor at this time. (5) Chronic diastolic congestive heart failure Is this a current diagnosis for this admission?: Yes Plan: Still with net positive fluid balance however we are unable to have accurate intake and output as the patient will have incontinence. Continue to monitor the patient clinically. The patient is already on a low dose of furosemide. (6) Fever Qualifiers: Fever type: unspecified Qualified Code(s): R50.9 - Fever, unspecified Is this a current diagnosis for this admission?: Yes Plan: Secondary to cover pneumonia Afebrile for 2 days now. Continue current treatment plan. (7) Paroxysmal atrial fibrillation Is this a current diagnosis for this admission?: Yes Plan: Borderline bradycardic on metoprolol. Currently anticoagulated with therapeutic dose Lovenox. Will return to oral anticoagulation once d-dimer is less than 1.0. (8) Hyperglycemia due to diabetes mellitus Is this a current diagnosis for this admission?: Yes Plan: We will add low-dose Lantus at night to see if we can even out her Accu-Cheks. She is on extended release glipizide at home as well as other oral medications. The elevated sugars also are response to the IV dexamethasone. We will continue to monitor Accu-Cheks and utilize sliding scale with the new dose of Lantus. (9) Hypertension Qualifiers: Hypertension type: essential hypertension Qualified Code(s): I10 - Essential (primary) hypertension Is this a current diagnosis for this admission?: Yes Plan: Slightly elevated blood pressures. We will continue the current regimen at this time. As she is been on lisinopril prior to being infected with COVID we may increase the lisinopril dose very slightly. (10) Morbid obesity with BMI of 40.0-44.9, adult Is this a current diagnosis for this admission?: Yes Plan: 1 she recovers she should consider diet and exercise. (11) Schizoaffective disorder Qualifiers: Schizoaffective disorder type: unspecified Qualified Code(s): F25.9 - Schizoaffective disorder, unspecified Is this a current diagnosis for this admission?: Yes Plan: Now that her daughter has dropped off her medications I have asked pharmacy to review and continue medications that we do not have on formulary. (12) Community acquired pneumonia, bilateral Is this a current diagnosis for this admission?: Yes Plan: Her pneumonia is caused by COVID virus - Plan Summary Summary: Patient will be admitted to the medical floor where she will receive routine supportive and symptomatic cares. She will be treated with IV antibiotics utilizing Rocephin and azithromycin. She will receive supplemental oxygen via nasal cannula in order to maintain an adequate oxygen saturation. She will receive her usual inhaler medications for her chronic COPD/asthma. She will receive IV dexamethasone 10 mg initially followed by 6 mg/day. She will receive IV fluids with lactated Ringer's solution at 250 mL/h initially. She will receive morphine sulfate 2 to 4 mg IV every 2 hours as needed for pain. She will receive Ativan 1 mg IV every 4 hours as needed for anxiety or restlessness. Before meals and at bedtime Accu-Cheks will be performed with sliding scale insulin for hyperglycemia and a hypoglycemic protocol in place. Patient's usual home medications will be resumed, as appropriate, as soon as her medication list has been verified and reconciled. She will receive a diabetic, cardiac and prerenal restricted diet. - Time Time Spent with patient: 15-24 minutes Medications reviewed and adjusted accordingly: Yes Anticipated Discharge Disposition: Unsure. Possibly home health versus skilled facility Anticipated Discharge Timeframe: Unknown
[2019-12-03] MEDS ORDERED: PHARMACY COMMUNICATION ORDER MC NR (14:45)
[2019-12-03] MEDS ORDERED: ARIPIPRAZOLE 5 MG TABLET PO SCH (16:15)
[2019-12-03] MEDS: VENLAFAXINE HCL 75 MG CAP.SR.24H PO SCH (16:22)
[2019-12-03] MEDS: CEFTRIAXONE 1 GM/D5W RTU 1 GM/50 ML RTUPB IV SCH (17:41)
[2019-12-03] MEDS: AZITHROMYCIN 500 MG in DEXTROSE 5%-WATER 250 ML IV SCH (21:09)
[2019-12-03] MEDS: INSULIN GLARGINE,HUM.REC.ANLOG 1,000 UNIT/10 ML VIAL SUBCUT SCH (21:11)
[2019-12-03] MEDS: AMITRIPTYLINE HCL 25 MG TABLET PO SCH (21:12)
[2019-12-03] MEDS: DIPHENHYDRAMINE HCL 50 MG CAPSULE PO SCH (21:12)
[2019-12-03] MEDS: ARIPIPRAZOLE 5 MG TABLET PO SCH (21:12)
[2019-12-03] MEDS: MELATONIN 5 MG TABLET PO PRN (23:09)
[2019-12-04 05:18] LABS: ABSOLUTE LYMPHOCYTES (AUTO) 0.9 10^3/uL (0.5-4.7); ABSOLUTE MONOCYTES (AUTO) 0.4 10^3/uL (0.1-1.4); ABSOLUTE NEUT (AUTO) 6.4 10^3/uL (1.7-8.2); BASOPHILS % (AUTO) 0.3 % (0-2); HEMATOCRIT 35.1 % (36.0-47.0); HEMOGLOBIN 11.7 g/dL (12.0-15.5); LYMPHOCYTES % (AUTO) 11.7 % (13-45); MEAN CORPUSCULAR HGB CONC 33.5 g/dL (32.0-36.0); MEAN CORPUSCULAR VOLUME 93 fl (80-97); PLATELET COUNT 352 10^3/uL (150-450); RED BLOOD COUNT 3.79 10^6/uL (3.72-5.28); RED CELL DISTRIBUTION WIDTH 15.2 % (11.5-14.0); TOTAL CELLS COUNTED % (AUTO) 100 %; WHITE BLOOD COUNT 7.7 10^3/uL (4.0-10.5)
[2019-12-04] MEDS: DEXAMETHASONE SOD PHOSPHATE INJ 4 MG/1 ML VIAL IV SCH ×3 (06:03→21:35)
[2019-12-04 06:25] LABS: ANION GAP 10 (5-19); BLOOD UREA NITROGEN 18 mg/dL (7-20); CALCIUM 8.7 mg/dL (8.4-10.2); CARBON DIOXIDE 31 mmol/L (22-30); CHLORIDE 93 mmol/L (98-107); GLUCOSE 296 mg/dL (75-110); POTASSIUM 4.2 mmol/L (3.6-5.0)
[2019-12-04 06:46] LABS: C-REACTIVE PROTEIN 163.1 mg/L (<10.0)
[2019-12-04] MEDS: INSULIN REG, HUMAN 100 UNIT/ML 3 ML VIAL (PYX) SUBCUT SCH ×4 (08:20→21:38)
[2019-12-04] MEDS: DOCUSATE SODIUM 100 MG CAPSULE PO SCH ×2 (10:50→17:50)
[2019-12-04] MEDS: VENLAFAXINE HCL 75 MG CAP.SR.24H PO SCH (10:50)
[2019-12-04] MEDS: FUROSEMIDE INJ/PF 20 MG/2 ML SDV IV SCH (10:51)
[2019-12-04] MEDS: ENOXAPARIN SODIUM INJ 120 MG/0.8 ML DISP.SYRIN SUBCUT SCH ×2 (10:51→21:35)
[2019-12-04] MEDS: ASCORBIC ACID 500 MG TABLET PO SCH ×2 (10:52→17:50)
[2019-12-04] MEDS: METOPROLOL SUCCINATE 25 MG TAB.SR.24H PO SCH ×2 (10:52→21:36)
[2019-12-04] MEDS: LISINOPRIL 5 MG TABLET PO SCH (10:52)
[2019-12-04] MEDS: FAMOTIDINE 20 MG TABLET PO SCH ×2 (10:52→21:38)
[2019-12-04] MEDS: PREGABALIN 75 MG CAPSULE PO SCH ×2 (10:52→21:36)
[2019-12-04] MEDS: CHOLECALCIFEROL (D3) 1,000 UNIT (25 MCG) TABLET PO SCH (10:53)
[2019-12-04] MEDS: NYSTATIN CREAM 15 GM TP SCH ×2 (11:54→17:51)
--- NOTE | 2019-12-04 14:59 | PDOC PROGRESS REPORT ---
Subjective Progress Note for:: 12/04/19 Subjective:: Resting in bed. She continues to shake her leg as she is anxious. She appears more comfortable than yesterday. Reason For Visit: COMMUNITY ACQUIRED BILATERAL MULTIFOCAL PNEUMONIA, Physical Exam Vital Signs: Temp Pulse Resp BP Pulse Ox 97.5 F 62 17 110/54 L 93 12/04/19 11:45 12/04/19 14:00 12/04/19 08:16 12/04/19 11:45 12/04/19 11:45 Intake & Output 12/03/19 12/04/19 12/05/19 06:59 06:59 06:59 Intake Total 1037 1040 Output Total 700 Balance 337 1040 Weight 109.6 kg 107.7 kg General appearance: PRESENT: cooperative, mild distress, well-developed Head exam: PRESENT: atraumatic, normocephalic Mouth exam: PRESENT: moist, tongue midline Respiratory exam: PRESENT: rales, symmetrical, unlabored. ABSENT: rhonchi, tachypnea, wheezes Cardiovascular exam: PRESENT: RRR, +S1, +S2. ABSENT: bradycardia, diastolic murmur, irregular rhythm, systolic murmur, tachycardia GI/Abdominal exam: PRESENT: normal bowel sounds, soft. ABSENT: distended, guarding, tenderness Rectal exam: PRESENT: deferred Gentrourinary exam: ABSENT: indwelling catheter Extremities exam: ABSENT: pedal edema Neurological exam: PRESENT: alert, awake, oriented to person, oriented to place, oriented to time, oriented to situation, CN II-XII grossly intact, other - very fidgity. ABSENT: altered Psychiatric exam: PRESENT: appropriate affect. ABSENT: agitated, anxious, unusual affect Focused psych exam: ABSENT: delusional, paranoid, restlessness Results Laboratory Results: 12/04/19 04:39 12/04/19 04:39 12/04/19 12/04/19 04:39 04:39 WBC 7.7 RBC 3.79 Hgb 11.7 L Hct 35.1 L MCV 93 MCH 31.0 MCHC 33.5 RDW 15.2 H Plt Count 352 Seg Neutrophils % 83.0 H Sodium 133.7 L Potassium 4.2 Chloride 93 L Carbon Dioxide 31 H Anion Gap 10 BUN 18 Creatinine 0.77 Est GFR ( Amer) > 60 Glucose 296 H Calcium 8.7 Magnesium 2.1 C-Reactive Protein 163.1 H 11/29/19 14:47 Troponin I < 0.012 Impressions: Chest X-Ray 11/29/19 15:25 IMPRESSION: HEART ENLARGED WITHOUT FAILURE. NO OTHER SIGNIFICANT RADIOGRAPHIC FINDING IN THE CHEST. Chest/Abdomen CTA 11/29/19 16:59 IMPRESSION: 1. No central pulmonary embolism. 2. Commonly reported imaging features of (COVID-19 or viral) pneumonia are present. Other processes such as influenza pneumonia and organizing pneumonia, as can be seen with drug toxicity and connective tissue disease, can cause a similar imaging pattern. [PneTyp] Assessment and Plan - Diagnosis (1) Pneumonia due to SARS-associated coronavirus Is this a current diagnosis for this admission?: Yes Plan: stable on nasal canula (2) Acute respiratory failure with hypoxia Is this a current diagnosis for this admission?: Yes Plan: still attempting to wean from oxygen (3) UTI (urinary tract infection) Qualifiers: Urinary tract infection type: site unspecified Hematuria presence: without hematuria Qualified Code(s): N39.0 - Urinary tract infection, site not specified Is this a current diagnosis for this admission?: Yes Plan: Strep group G resolved with antibiotics (4) Hyponatremia Is this a current diagnosis for this admission?: Yes Plan: sodium still just below the lower limit normal. Continue to monitor (5) Chronic diastolic congestive heart failure Is this a current diagnosis for this admission?: Yes Plan: Stable. Continue current regimen (6) Fever Qualifiers: Fever type: unspecified Qualified Code(s): R50.9 - Fever, unspecified Is this a current diagnosis for this admission?: Yes Plan: afebrile since 12/02/19 (7) Paroxysmal atrial fibrillation Is this a current diagnosis for this admission?: Yes Plan: heart rate well controlled. Continue current meds (8) Hyperglycemia due to diabetes mellitus Is this a current diagnosis for this admission?: Yes Plan: accuchecks still variable and elevated. Increase lantus (9) Hypertension Qualifiers: Hypertension type: essential hypertension Qualified Code(s): I10 - Essential (primary) hypertension Is this a current diagnosis for this admission?: Yes Plan: no changes. Continue current regimen (10) Morbid obesity with BMI of 40.0-44.9, adult Is this a current diagnosis for this admission?: Yes Plan: 1 she recovers she should consider diet and exercise. (11) Schizoaffective disorder Qualifiers: Schizoaffective disorder type: unspecified Qualified Code(s): F25.9 - Schizoaffective disorder, unspecified Is this a current diagnosis for this admission?: Yes Plan: Now that her daughter has dropped off her medications I have asked pharmacy to review and continue medications that we do not have on formulary. (12) Community acquired pneumonia, bilateral Is this a current diagnosis for this admission?: Yes Plan: Her pneumonia is caused by COVID virus - Plan Summary Summary: Patient will be admitted to the medical floor where she will receive routine supportive and symptomatic cares. She will be treated with IV antibiotics utilizing Rocephin and azithromycin. She will receive supplemental oxygen via nasal cannula in order to maintain an adequate oxygen saturation. She will receive her usual inhaler medications for her chronic COPD/asthma. She will receive IV dexamethasone 10 mg initially followed by 6 mg/day. She will receive IV fluids with lactated Ringer's solution at 250 mL/h initially. She will receive morphine sulfate 2 to 4 mg IV every 2 hours as needed for pain. She will receive Ativan 1 mg IV every 4 hours as needed for anxiety or restlessness. Before meals and at bedtime Accu-Cheks will be performed with sliding scale insulin for hyperglycemia and a hypoglycemic protocol in place. Patient's usual home medications will be resumed, as appropriate, as soon as her medication list has been verified and reconciled. She will receive a diabetic, cardiac and prerenal restricted diet. - Time Time Spent with patient: 15-24 minutes Medications reviewed and adjusted accordingly: Yes Anticipated Discharge Disposition: Home with Home Health Anticipated Discharge Timeframe: 4-5 days
[2019-12-04] MEDS: CEFTRIAXONE 1 GM/D5W RTU 1 GM/50 ML RTUPB IV SCH (17:50)
[2019-12-04] MEDS: ARIPIPRAZOLE 5 MG TABLET PO SCH (21:35)
[2019-12-04] MEDS: INSULIN GLARGINE,HUM.REC.ANLOG 1,000 UNIT/10 ML VIAL SUBCUT SCH (21:38)
[2019-12-04] MEDS: DIPHENHYDRAMINE HCL 50 MG CAPSULE PO SCH (21:39)
[2019-12-04] MEDS: AMITRIPTYLINE HCL 25 MG TABLET PO SCH (21:39)
[2019-12-04] MEDS: AZITHROMYCIN 500 MG in DEXTROSE 5%-WATER 250 ML IV SCH (21:40)
[2019-12-04] MEDS: MELATONIN 5 MG TABLET PO PRN (21:45)
[2019-12-04] MEDS: REMDESIVIR (EUA) 100 MG in NORMAL SALINE 250 ML IV SCH (23:07)
[2019-12-05] MEDS: DEXAMETHASONE SOD PHOSPHATE INJ 4 MG/1 ML VIAL IV SCH ×3 (05:34→21:14)
[2019-12-05 09:45] LABS: HEMATOCRIT 39.1 % (36.0-47.0); HEMOGLOBIN 12.8 g/dL (12.0-15.5); MEAN CORPUSCULAR HEMOGLOBIN 30.2 pg (27.0-33.4); MEAN CORPUSCULAR HGB CONC 32.7 g/dL (32.0-36.0); MEAN CORPUSCULAR VOLUME 92 fl (80-97); PLATELET COUNT 439 10^3/uL (150-450); RED BLOOD COUNT 4.24 10^6/uL (3.72-5.28)
[2019-12-05] MEDS: VENLAFAXINE HCL 75 MG CAP.SR.24H PO SCH (10:00)
[2019-12-05] MEDS: METOPROLOL SUCCINATE 25 MG TAB.SR.24H PO SCH ×2 (10:27→21:14)
[2019-12-05] MEDS: LISINOPRIL 5 MG TABLET PO SCH (10:27)
[2019-12-05] MEDS: FAMOTIDINE 20 MG TABLET PO SCH ×2 (10:27→22:41)
[2019-12-05] MEDS: INSULIN REG, HUMAN 100 UNIT/ML 3 ML VIAL (PYX) SUBCUT SCH ×4 (10:27→22:34)
[2019-12-05] MEDS: ASCORBIC ACID 500 MG TABLET PO SCH ×2 (10:28→17:07)
[2019-12-05] MEDS: ENOXAPARIN SODIUM INJ 120 MG/0.8 ML DISP.SYRIN SUBCUT SCH ×2 (10:28→21:15)
[2019-12-05] MEDS: FUROSEMIDE INJ/PF 20 MG/2 ML SDV IV SCH (10:28)
[2019-12-05] MEDS: PREGABALIN 75 MG CAPSULE PO SCH ×2 (10:28→21:14)
[2019-12-05] MEDS: DOCUSATE SODIUM 100 MG CAPSULE PO SCH ×2 (12:04→17:00)
[2019-12-05] MEDS: CHOLECALCIFEROL (D3) 1,000 UNIT (25 MCG) TABLET PO SCH (12:05)
[2019-12-05] MEDS: NYSTATIN CREAM 15 GM TP SCH ×2 (12:05→17:08)
[2019-12-05] MEDS: CEFTRIAXONE 1 GM/D5W RTU 1 GM/50 ML RTUPB IV SCH (17:08)
[2019-12-05] MEDS: AMITRIPTYLINE HCL 25 MG TABLET PO SCH (21:14)
[2019-12-05] MEDS: ARIPIPRAZOLE 5 MG TABLET PO SCH (21:14)
[2019-12-05] MEDS: REMDESIVIR (EUA) 100 MG in NORMAL SALINE 250 ML IV SCH (21:15)
[2019-12-05] MEDS: DIPHENHYDRAMINE HCL 50 MG CAPSULE PO SCH (21:15)
[2019-12-05] MEDS: MELATONIN 5 MG TABLET PO PRN (22:33)
[2019-12-05] MEDS: AZITHROMYCIN 500 MG in DEXTROSE 5%-WATER 250 ML IV SCH (22:33)
[2019-12-05] MEDS: INSULIN GLARGINE,HUM.REC.ANLOG 1,000 UNIT/10 ML VIAL SUBCUT SCH (22:34)
[2019-12-05] MEDS: ACETAMINOPHEN 325 MG TABLET PO PRN (22:39)
--- NOTE | 2019-12-05 23:18 | PDOC PROGRESS REPORT ---
Subjective Progress Note for:: 12/05/19 Reason For Visit: COMMUNITY ACQUIRED BILATERAL MULTIFOCAL PNEUMONIA, Physical Exam Vital Signs: Temp Pulse Resp BP Pulse Ox 98.5 F 57 L 15 128/43 H 93 12/05/19 21:32 12/05/19 21:32 12/05/19 16:47 12/05/19 21:32 12/05/19 21:32 Intake & Output 12/04/19 12/05/19 12/06/19 06:59 06:59 06:59 Intake Total 1040 2204 780 Balance 1040 2204 780 Weight 107.7 kg 106.1 kg Results Laboratory Results: 12/05/19 09:31 12/04/19 04:39 12/05/19 09:31 WBC 6.0 RBC 4.24 Hgb 12.8 Hct 39.1 MCV 92 MCH 30.2 MCHC 32.7 RDW 15.0 H Plt Count 439 11/29/19 14:47 Troponin I < 0.012 Impressions: Chest X-Ray 11/29/19 15:25 IMPRESSION: HEART ENLARGED WITHOUT FAILURE. NO OTHER SIGNIFICANT RADIOGRAPHIC FINDING IN THE CHEST. Chest/Abdomen CTA 11/29/19 16:59 IMPRESSION: 1. No central pulmonary embolism. 2. Commonly reported imaging features of (COVID-19 or viral) pneumonia are present. Other processes such as influenza pneumonia and organizing pneumonia, as can be seen with drug toxicity and connective tissue disease, can cause a similar imaging pattern. [PneTyp] Assessment and Plan - Diagnosis (1) Pneumonia due to SARS-associated coronavirus Is this a current diagnosis for this admission?: Yes Plan: actually beginning to feel better but still not ready for home (2) Acute respiratory failure with hypoxia Is this a current diagnosis for this admission?: Yes Plan: Still requires 5 LPM NC (3) Hyponatremia Is this a current diagnosis for this admission?: Yes Plan: re-check chemistries in AM (4) Chronic diastolic congestive heart failure Is this a current diagnosis for this admission?: Yes Plan: stable. No changes (5) Fever Qualifiers: Fever type: unspecified Qualified Code(s): R50.9 - Fever, unspecified Is this a current diagnosis for this admission?: Yes Plan: afebrile since 12/02/19 (6) Paroxysmal atrial fibrillation Is this a current diagnosis for this admission?: Yes Plan: heart rate well controlled. Continue current meds (7) Hyperglycemia due to diabetes mellitus Is this a current diagnosis for this admission?: Yes Plan: accuchecks still variable and elevated. Increase lantus (8) Hypertension Qualifiers: Hypertension type: essential hypertension Qualified Code(s): I10 - Essential (primary) hypertension Is this a current diagnosis for this admission?: Yes Plan: Good blood pressure control. No changes (9) Morbid obesity with BMI of 40.0-44.9, adult Is this a current diagnosis for this admission?: Yes Plan: 1 she recovers she should consider diet and exercise. (10) Schizoaffective disorder Qualifiers: Schizoaffective disorder type: unspecified Qualified Code(s): F25.9 - Schizoaffective disorder, unspecified Is this a current diagnosis for this admission?: Yes Plan: Now that her daughter has dropped off her medications I have asked pharmacy to review and continue medications that we do not have on formulary. (11) Community acquired pneumonia, bilateral Is this a current diagnosis for this admission?: Yes Plan: Her pneumonia is caused by COVID virus (12) UTI (urinary tract infection) Qualifiers: Urinary tract infection type: site unspecified Hematuria presence: without hematuria Qualified Code(s): N39.0 - Urinary tract infection, site not specified Is this a current diagnosis for this admission?: Yes Plan: resolved - Plan Summary Summary: Patient will be admitted to the medical floor where she will receive routine supportive and symptomatic cares. She will be treated with IV antibiotics utilizing Rocephin and azithromycin. She will receive supplemental oxygen via nasal cannula in order to maintain an adequate oxygen saturation. She will receive her usual inhaler medications for her chronic COPD/asthma. She will receive IV dexamethasone 10 mg initially followed by 6 mg/day. She will receive IV fluids with lactated Ringer's solution at 250 mL/h initially. She will receive morphine sulfate 2 to 4 mg IV every 2 hours as needed for pain. She will receive Ativan 1 mg IV every 4 hours as needed for anxiety or restlessness. Before meals and at bedtime Accu-Cheks will be performed with sliding scale insulin for hyperglycemia and a hypoglycemic protocol in place. Patient's usual home medications will be resumed, as appropriate, as soon as her medication list has been verified and reconciled. She will receive a diabetic, cardiac and prerenal restricted diet. - Time Time Spent with patient: 15-24 minutes Medications reviewed and adjusted accordingly: Yes Anticipated Discharge Disposition: Home with Home Health Anticipated Discharge Timeframe: unknown
[2019-12-06] MEDS: DEXAMETHASONE SOD PHOSPHATE INJ 4 MG/1 ML VIAL IV SCH ×3 (05:24→21:24)
[2019-12-06 05:52] LABS: APPEARANCE,URINE CLEAR; BILIRUBIN,URINE NEGATIVE (NEGATIVE); COLOR,URINE YELLOW; GLUCOSE, URINE NEGATIVE (NEGATIVE); KETONES,URINE NEGATIVE (NEGATIVE); LEUKOCYTE ESTERASE,URINE TRACE (NEGATIVE); NITRITE,URINE NEGATIVE (NEGATIVE); PROTEIN,URINE 30 mg/dL (NEGATIVE); URINE SPECIFIC GRAVITY 1.028; UROBILINOGEN,URINE NEGATIVE mg/dL (<2.0)
[2019-12-06 06:28] LABS: ABSOLUTE LYMPHOCYTES (AUTO) 1.9 10^3/uL (0.5-4.7); ABSOLUTE MONOCYTES (AUTO) 0.6 10^3/uL (0.1-1.4); ABSOLUTE NEUT (AUTO) 4.7 10^3/uL (1.7-8.2); BASOPHILS % (AUTO) 0.4 % (0-2); EOSINOPHILS % (AUTO) 0.5 % (0-6); HEMATOCRIT 39.9 % (36.0-47.0); HEMOGLOBIN 13.2 g/dL (12.0-15.5); LYMPHOCYTES % (AUTO) 26.6 % (13-45); MEAN CORPUSCULAR HEMOGLOBIN 30.3 pg (27.0-33.4); MEAN CORPUSCULAR HGB CONC 33.2 g/dL (32.0-36.0); MEAN CORPUSCULAR VOLUME 91 fl (80-97); MONOCYTES % (AUTO) 7.9 % (3-13); PLATELET COUNT 475 10^3/uL (150-450); RED BLOOD COUNT 4.36 10^6/uL (3.72-5.28); RED CELL DISTRIBUTION WIDTH 14.8 % (11.5-14.0); SEGMENTED NEUTROPHILS % (AUTO) 64.6 % (42-78); TOTAL CELLS COUNTED % (AUTO) 100 %; WHITE BLOOD COUNT 7.2 10^3/uL (4.0-10.5)
[2019-12-06 06:46] LABS: ANION GAP 8 (5-19); BLOOD UREA NITROGEN 18 mg/dL (7-20); CALCIUM 8.9 mg/dL (8.4-10.2); CARBON DIOXIDE 34 mmol/L (22-30); CHLORIDE 93 mmol/L (98-107); GLUCOSE 276 mg/dL (75-110); POTASSIUM 4.1 mmol/L (3.6-5.0)
[2019-12-06] MEDS: LISINOPRIL 5 MG TABLET PO SCH (10:30)
[2019-12-06] MEDS: METOPROLOL SUCCINATE 25 MG TAB.SR.24H PO SCH (10:31)
[2019-12-06] MEDS: PREGABALIN 75 MG CAPSULE PO SCH ×2 (10:38→21:24)
[2019-12-06] MEDS: ASCORBIC ACID 500 MG TABLET PO SCH ×2 (10:38→17:11)
[2019-12-06] MEDS: VENLAFAXINE HCL 75 MG CAP.SR.24H PO SCH (10:38)
[2019-12-06] MEDS: FAMOTIDINE 20 MG TABLET PO SCH ×2 (10:38→21:25)
[2019-12-06] MEDS: CHOLECALCIFEROL (D3) 1,000 UNIT (25 MCG) TABLET PO SCH (10:38)
[2019-12-06] MEDS: ENOXAPARIN SODIUM INJ 120 MG/0.8 ML DISP.SYRIN SUBCUT SCH (10:39)
[2019-12-06] MEDS: INSULIN REG, HUMAN 100 UNIT/ML 3 ML VIAL (PYX) SUBCUT SCH ×4 (10:40→22:03)
[2019-12-06] MEDS: FUROSEMIDE INJ/PF 20 MG/2 ML SDV IV SCH (10:40)
[2019-12-06] MEDS: DOCUSATE SODIUM 100 MG CAPSULE PO SCH (10:40)
[2019-12-06] MEDS: NYSTATIN CREAM 15 GM TP SCH ×2 (10:41→17:12)
[2019-12-06] MEDS: FLUTICASONE PROPIONATE HFA 110 MCG/PUFF 12 GM MDI IH SCH ×2 (10:44→21:30)
--- NOTE | 2019-12-06 13:06 | PDOC PROGRESS REPORT ---
Subjective Progress Note for:: 12/06/19 Subjective:: Feeling well overall, although she remains hypoxic requiring 5-6 L O2 via NC. Reason For Visit: COVID 19 PNEUMONIA Physical Exam Vital Signs: Temp Pulse Resp BP Pulse Ox 97.8 F 55 L 19 109/52 L 95 12/06/19 08:40 12/06/19 08:40 12/06/19 08:40 12/06/19 08:40 12/06/19 08:40 Intake & Output 12/05/19 12/06/19 12/07/19 06:59 06:59 06:59 Intake Total 2204 1500 Balance 2204 1500 Weight 106.1 kg 105.8 kg General appearance: PRESENT: no acute distress, morbidly obese Eye exam: PRESENT: EOMI Mouth exam: PRESENT: neck supple Throat exam: ABSENT: post pharyngeal erythema Neck exam: ABSENT: JVD Respiratory exam: PRESENT: rhonchi. ABSENT: accessory muscle use, crackles, tachypnea Cardiovascular exam: PRESENT: irregular rhythm. ABSENT: tachycardia GI/Abdominal exam: PRESENT: normal bowel sounds. ABSENT: tenderness Rectal exam: PRESENT: deferred Extremities exam: ABSENT: calf tenderness, pedal edema Neurological exam: PRESENT: alert Psychiatric exam: PRESENT: flat affect Results Laboratory Results: 12/06/19 05:45 12/06/19 05:45 12/06/19 12/06/19 12/06/19 05:29 05:45 05:45 WBC 7.2 RBC 4.36 Hgb 13.2 Hct 39.9 MCV 91 MCH 30.3 MCHC 33.2 RDW 14.8 H Plt Count 475 H Seg Neutrophils % 64.6 Sodium 134.6 L Potassium 4.1 Chloride 93 L Carbon Dioxide 34 H Anion Gap 8 BUN 18 Creatinine 0.81 Est GFR ( Amer) > 60 Glucose 276 H Calcium 8.9 Magnesium 2.0 Urine Color YELLOW Urine Appearance CLEAR Urine pH 5.0 Ur Specific Hominy 1.028 Urine Protein 30 H Urine Glucose (UA) NEGATIVE Urine Ketones NEGATIVE Urine Blood NEGATIVE Urine Nitrite NEGATIVE Ur Leukocyte Esterase TRACE H Urine WBC (Auto) 3 Urine RBC (Auto) 4 11/29/19 14:47 Troponin I < 0.012 Impressions: Chest X-Ray 11/29/19 15:25 IMPRESSION: HEART ENLARGED WITHOUT FAILURE. NO OTHER SIGNIFICANT RADIOGRAPHIC FINDING IN THE CHEST. Chest/Abdomen CTA 11/29/19 16:59 IMPRESSION: 1. No central pulmonary embolism. 2. Commonly reported imaging features of (COVID-19 or viral) pneumonia are present. Other processes such as influenza pneumonia and organizing pneumonia, as can be seen with drug toxicity and connective tissue disease, can cause a similar imaging pattern. [PneTyp] Assessment and Plan - Plan Summary Summary: COVID 19 Pneumonia Acute respiratory failure with hypoxia - Still requires 5-6 O2 via NC - continue dexamethasone - DC antibiotics - afebrile since 12/02/19 Acute on Chronic diastolic congestive heart failure Hyponatremia: mild, may have been due to volume overload on admission, and may now be due to over-diuresis at this point - DC Lasix - will re-check BMP in AM Paroxysmal atrial fibrillation - heart rate well controlled - continue home Eliquis and metoprolol Hyperglycemia due to diabetes mellitus type 2 - accuchecks still variable and elevated Morbid obesity with BMI of 40.0-44.9, adult - encourage diet and exercise, may benefit from bariatric surgery referral in future Schizoaffective disorder - restart home medications Acute lower UTI (urinary tract infection) without hematuria - resolved with IV antibiotics - Time Time Spent with patient: 35 or more minutes Medications reviewed and adjusted accordingly: Yes Anticipated Discharge Disposition: Home, Self Care Anticipated Discharge Timeframe: within 72 hours
[2019-12-06] MEDS: METOPROLOL SUCCINATE 50 MG TAB.SR.24H PO SCH ×2 (17:12→21:31)
[2019-12-06] MEDS: DOXAZOSIN MESYLATE 2 MG TABLET PO SCH (21:24)
[2019-12-06] MEDS: APIXABAN 5 MG TABLET PO SCH (21:24)
[2019-12-06] MEDS: ARIPIPRAZOLE 5 MG TABLET PO SCH (21:25)
[2019-12-06] MEDS: TOLTERODINE TARTRATE 1 MG TABLET PO SCH (21:25)
[2019-12-06] MEDS: ZOLPIDEM TARTRATE 5 MG TABLET PO SCH (21:25)
[2019-12-06] MEDS: DIPHENHYDRAMINE HCL 50 MG CAPSULE PO SCH (21:29)
[2019-12-06] MEDS: MELATONIN 5 MG TABLET PO PRN (21:46)
[2019-12-06] MEDS ORDERED: (PENDING PHARMACY ID) (Prazosin Hcl [Minipress] 2 MG) PO SCH (22:00)
[2019-12-06] MEDS ORDERED: (PENDING PHARMACY ID) (Zolpidem Tartrate [Ambien] 10 MG) PO SCH (22:00)
[2019-12-06] MEDS: INSULIN GLARGINE,HUM.REC.ANLOG 1,000 UNIT/10 ML VIAL SUBCUT SCH (22:03)
[2019-12-07] MEDS: DEXAMETHASONE SOD PHOSPHATE INJ 4 MG/1 ML VIAL IV SCH ×3 (05:06→21:52)
[2019-12-07 06:20] LABS: ANION GAP 7 (5-19); BLOOD UREA NITROGEN 19 mg/dL (7-20); CALCIUM 8.4 mg/dL (8.4-10.2); CARBON DIOXIDE 36 mmol/L (22-30); CHLORIDE 89 mmol/L (98-107); GLUCOSE 317 mg/dL (75-110)
[2019-12-07 07:26] LABS: HEMATOCRIT 38.8 % (36.0-47.0); HEMOGLOBIN 12.8 g/dL (12.0-15.5); MEAN CORPUSCULAR HEMOGLOBIN 30.4 pg (27.0-33.4); MEAN CORPUSCULAR HGB CONC 33.1 g/dL (32.0-36.0); MEAN CORPUSCULAR VOLUME 92 fl (80-97); PLATELET COUNT 425 10^3/uL (150-450); RED BLOOD COUNT 4.22 10^6/uL (3.72-5.28); RED CELL DISTRIBUTION WIDTH 14.7 % (11.5-14.0); WHITE BLOOD COUNT 5.9 10^3/uL (4.0-10.5)
[2019-12-07] MEDS: FENOFIBRATE NANOCRYSTALLIZED 145 MG TABLET PO SCH (08:18)
[2019-12-07] MEDS: INSULIN REG, HUMAN 100 UNIT/ML 3 ML VIAL (PYX) SUBCUT SCH ×4 (08:18→22:04)
[2019-12-07] MEDS ORDERED: METOPROLOL TARTRATE PF/INJ 5 MG/5 ML SDV IV ONE (09:31)
--- NOTE | 2019-12-07 09:42 | EKG REPORT ---
SEVERITY:- ABNORMAL ECG - A-FLUTTER W/ VARIED AV BLOCK, A-RATE 333 : Confirmed by: Arturo Pascual MD 07-Dec-2019 09:41:15
[2019-12-07] MEDS: VENLAFAXINE HCL 75 MG CAP.SR.24H PO SCH (10:00)
[2019-12-07] MEDS ORDERED: (PENDING PHARMACY ID) (Solifenacin Succinate [Vesicare] 10 MG) PO SCH (10:00)
[2019-12-07] MEDS: PREGABALIN 75 MG CAPSULE PO SCH ×2 (10:00→21:52)
[2019-12-07] MEDS: APIXABAN 5 MG TABLET PO SCH ×2 (10:01→21:54)
[2019-12-07] MEDS: TOLTERODINE TARTRATE 1 MG TABLET PO SCH ×2 (10:01→21:53)
[2019-12-07] MEDS: ASCORBIC ACID 500 MG TABLET PO SCH ×2 (10:01→17:24)
[2019-12-07] MEDS: FAMOTIDINE 20 MG TABLET PO SCH ×2 (10:01→21:54)
[2019-12-07] MEDS: LISINOPRIL 5 MG TABLET PO SCH (10:01)
[2019-12-07] MEDS: CHOLECALCIFEROL (D3) 1,000 UNIT (25 MCG) TABLET PO SCH (10:02)
[2019-12-07] MEDS: METOPROLOL SUCCINATE 50 MG TAB.SR.24H PO SCH ×2 (10:03→21:54)
[2019-12-07] MEDS: NYSTATIN CREAM 15 GM TP SCH ×2 (10:04→17:53)
[2019-12-07] MEDS: FLUTICASONE PROPIONATE HFA 110 MCG/PUFF 12 GM MDI IH SCH (10:05)
[2019-12-07] MEDS ORDERED: DILTIAZEM HCL/D5W 125 MG/125 ML RTUINJ IV PRN (11:23)
[2019-12-07] MEDS ORDERED: DEXTROSE 5%-WATER 500 ML with AMIODARONE HCL 900 MG IV PRN ×2 (12:28)
[2019-12-07] MEDS ORDERED: NORMAL SALINE 1000 ML 500 ML IV ONE (12:36)
[2019-12-07] MEDS ORDERED: DIGOXIN INJ 0.5 MG/2 ML AMPULE IV ONE (12:45)
[2019-12-07] MEDS ORDERED: DILTIAZEM HCL INJ 25 MG/5 ML VIAL IV ONE (12:45)
--- NOTE | 2019-12-07 14:03 | PDOC CONSULTATION ---
Consultation Consult Date: 12/07/19 Provider Consulted: ZEFERINO WOLFE Consult reason:: Atrial flutter History of Present Illness Admission Date/PCP: 11/29/19 21:43 RENALDO DAMON DO Patient complains of: Fatigue History of Present Illness: SHOSHANA BOWMAN is a 54 year old female 54-year-old lady who has been admitted with COVID pneumonia. Prior problems include paroxysmal atrial fibrillation, congestive heart failure, dyslipidemia, hypertension. Patient is on long-term systemic anticoagulation. Cardiology input has been requested on account of atrial flutter with difficult rate control. At the time of my evaluation patient reports no symptoms and feels significantly better from when she was admitted. She does not report chest pain, dyspnea, palpitations or fatigue. Review of systems was obtained and is negative as were mentioned in the HPI. No familial illnesses reported to me back. Past Medical History Cardiac Medical History: Reports: Atrial Fibrillation, Congestive Heart Failure, Hyperlipidema, Hypertension Denies: Coronary Artery Disease, DVT, Myocardial Infarction, Pulmonary Embolism Pulmonary Medical History: Reports: Asthma, Bronchitis Denies: Chronic Obstructive Pulmonary Disease (COPD), Pneumonia EENT Medical History: Denies: Cataracts, Ears - Hearing aids Neurological Medical History: Reports: Migraine Denies: Hemorrhagic CVA, Ischemic CVA, Seizures Endocrine Medical History: Reports: Diabetes Mellitus Type 2 - Poorly compliant with medications and diet, Hypothyroidism Denies: Diabetes Mellitus Type 1, Hyperthyroidism Renal/ Medical History: Denies: Chronic Kidney Disease, Nephrolithiasis Malignancy Medical History: Reports: None GI Medical History: Reports: Gastroesophageal Reflux Disease Denies: Cirrhosis, Crohn's Disease, Hepatitis, Peptic Ulcer Disease, Ulcerative Colitis Musculoskeltal Medical History: Reports: Arthritis Denies: Gout Skin Medical History: Denies: Eczema, Psoriasis Psychiatric Medical History: Reports: Schizoaffective Disorder Denies: Alcohol Dependency, Depression, Substance Abuse, Tobacco Dependency Traumatic Medical History: Reports: None Hematology: Denies: Anemia, Bleeding Tendencies Infectious Medical History: Reports: None Past Surgical History Past Surgical History: Reports: Cholecystectomy, Tubal Ligation Denies: Hysterectomy Social History Lives with: Alone Smoking Status: Former Smoker Electronic Cigarette use?: No Frequency of Alcohol Use: None Hx Recreational Drug Use: No Drugs: None Hx Prescription Drug Abuse: No - Advance Directive Resuscitation Status: Full Code Family History Family History: CAD, CVA, DM, Hyperlipidemia, Hypertension, Malignancy, Thyroid Disfunction, Other - Asthma Parental Family History Reviewed: Yes - No familial illnesses Children Family History Reviewed: NA Sibling(s) Family History Reviewed.: NA Medication/Allergy Home Medications: Apixaban [Eliquis 5 mg Tablet] 5 mg PO Q12 03/18/17 Zolpidem Tartrate [Ambien] 10 mg PO QHS 03/18/17 Brexpiprazole [Rexulti] 2 mg PO QHS 02/12/18 Solifenacin Succinate [Vesicare] 10 mg PO DAILY 02/12/18 Oxycodone HCl/Acetaminophen [Percocet 5-325 mg Tablet] 1 tab PO Q8HP PRN 06/19/19 Prazosin HCl [Minipress] 2 mg PO QHS 06/19/19 Tizanidine HCl 6 mg PO Q8 06/19/19 Metoprolol Succinate [Toprol Xl 25 mg Tab.sr] 50 mg PO Q12 30 Days 06/28/19 Lisinopril [Prinivil 5 mg Tablet] 5 mg PO DAILY 09/18/19 Pregabalin [Lyrica] 225 mg PO Q12 09/18/19 Alprazolam [Xanax] 1 mg PO TID 11/30/19 Amitriptyline HCl [Elavil 25 mg Tablet] 50 mg PO QHS 11/30/19 Desvenlafaxine [Desvenlafaxine ER] 100 mg PO DAILY 11/30/19 Empagliflozin/Linagliptin [Glyxambi 25 mg-5 mg Tablet] 1 each PO QAM 11/30/19 Fenofibrate Nanocrystallized [Fenofibrate] 145 mg PO DAILY 11/30/19 Flovent Hfa 220mcg 1 puff IH BID 11/30/19 Glipizide [Glipizide Xl] 10 mg PO DAILY 11/30/19 Metoprolol Succinate [Toprol Xl 50 mg Tab.sr] 50 mg PO BID 11/30/19 Moxifloxacin HCl [Vigamox 0.5% Oph Soln 3 ml] 1 drop OP TID 11/30/19 Mupirocin [Bactroban 2% Ointment 22 gm] 1 applic NASL BID 11/30/19 Allergies/Adverse Reactions: tramadol Allergy (Intermediate, Verified 11/29/19 15:10) AMS Penicillins Allergy (Mild, Verified 11/29/19 15:10) rash Sulfa (Sulfonamide Antibiotics) Allergy (Mild, Verified 11/29/19 15:10) rash aspirin Allergy (Verified 11/29/19 15:10) NO ASA Review of Systems All systems: reviewed and no additional remarkable complaints except as stated - Fatigue Constitutional: PRESENT: as per HPI Eyes: PRESENT: as per HPI Ears: PRESENT: as per HPI Nose, Mouth, and Throat: PRESENT: as per HPI Breasts: PRESENT: as per HPI Cardiovascular: PRESENT: as per HPI Respiratory: PRESENT: as per HPI, dyspnea Physical Exam Vital Signs: Temp Pulse Resp BP Pulse Ox 97.6 F 86 16 90/62 L 99 12/07/19 08:38 12/07/19 11:14 12/07/19 11:14 12/07/19 11:14 12/07/19 11:14 Intake & Output 12/06/19 12/07/19 12/08/19 06:59 06:59 06:59 Intake Total 1500 720 Balance 1500 720 Weight 105.8 kg 105.8 kg General appearance: PRESENT: no acute distress, cooperative, obese, well- developed, well-nourished Head exam: PRESENT: atraumatic, normocephalic Eye exam: PRESENT: conjunctiva pink, EOMI Mouth exam: PRESENT: moist Respiratory exam: PRESENT: crackles, decreased breath sounds, symmetrical, unlabored Cardiovascular exam: PRESENT: irregular rhythm, +S1, +S2 Pulses: PRESENT: normal radial pulses GI/Abdominal exam: PRESENT: soft Rectal exam: PRESENT: deferred Neurological exam: PRESENT: alert, awake, oriented to person, oriented to place, oriented to time, oriented to situation Psychiatric exam: PRESENT: appropriate affect Skin exam: PRESENT: dry, intact, normal color Results Laboratory Results: 12/07/19 04:29 12/07/19 04:29 12/07/19 12/07/19 04:29 04:29 WBC 5.9 RBC 4.22 Hgb 12.8 Hct 38.8 MCV 92 MCH 30.4 MCHC 33.1 RDW 14.7 H Plt Count 425 Sodium 131.7 L Potassium 4.0 Chloride 89 L Carbon Dioxide 36 H Anion Gap 7 BUN 19 Creatinine 0.73 Est GFR ( Amer) > 60 Glucose 317 H Calcium 8.4 11/29/19 14:47 Troponin I < 0.012 EKG Comments: Transthoracic echocardiogram 04/28/2017 Left ventricular ejection fraction is preserved. No mitral stenosis no mitral regurgitation Mild aortic valve sclerosis with no aortic stenosis. Twelve-lead EKG 11/29/2019 Sinus rhythm, 81 bpm Twelve-lead EKG 12/07/2019 Probable atrial flutter with variable ventricular conduction. Ventricular rate is 151 bpm COVID-19 detected 11/29/2019 chest abdomen CTA No central pulmonary embolus Features of COVID-19 pneumonia Impressions: Chest X-Ray 11/29/19 15:25 IMPRESSION: HEART ENLARGED WITHOUT FAILURE. NO OTHER SIGNIFICANT RADIOGRAPHIC FINDING IN THE CHEST. Chest/Abdomen CTA 11/29/19 16:59 IMPRESSION: 1. No central pulmonary embolism. 2. Commonly reported imaging features of (COVID-19 or viral) pneumonia are present. Other processes such as influenza pneumonia and organizing pneumonia, as can be seen with drug toxicity and connective tissue disease, can cause a similar imaging pattern. [PneTyp] Assessment & Plan - Diagnosis (1) Community acquired pneumonia, bilateral Is this a current diagnosis for this admission?: Yes Plan: Supportive care (2) Atrial fibrillation with RVR Is this a current diagnosis for this admission?: Yes Plan: Patient is known to have paroxysmal atrial fibrillation. In the context of ongoing viral pneumonia her rate is much increased and is been difficult to control Would prefer the use of intravenous beta-cesar in small aliquots to decrease the ventricular rate since her baseline blood pressure is low normal. If in a bind since patient is fully anticoagulated it will not be unreasonable to use intravenous amiodarone for short duration. Another option would be to use intravenous digoxin to slow down the ventricular rate Would not be slater to pursue aggressive measures to restore normal rhythm with ongoing COVID-19 viral pneumonic process. Continue systemic anticoagulation without interruption
[2019-12-07] MEDS: METOPROLOL TARTRATE PF/INJ 5 MG/5 ML SDV IV SCH ×3 (14:28→21:52)
--- NOTE | 2019-12-07 15:01 | PDOC PROGRESS REPORT ---
Subjective Progress Note for:: 12/07/19 Subjective:: This morning, she developed atrial flutter with heart rate in 150s. She remains asymptomatic and is feeling actually well overall. Reason For Visit: COMMUNITY ACQUIRED BILATERAL MULTIFOCAL PNEUMONIA, ATRIAL FLUTTER Physical Exam Vital Signs: Temp Pulse Resp BP Pulse Ox 97.7 F 117 H 18 107/52 L 96 12/07/19 13:47 12/07/19 13:47 12/07/19 13:47 12/07/19 13:47 12/07/19 13:47 Intake & Output 12/06/19 12/07/19 12/08/19 06:59 06:59 06:59 Intake Total 1500 720 Balance 1500 720 Weight 105.8 kg 105.8 kg Additional comments: General: morbidly obese Head: normocephalic, atraumatic Eyes: anicteric sclera ENT: moist mucus membranes, no oropharyngeal erythema/exudate Neck: no lymphadenopathy, no JVD Lungs: no increased WOB, no crackles Heart: tachycardia, regular Abdomen: normoactive bowel sounds, soft, non-tender, non-distended : no CVA tenderness, no suprapubic tenderness Extremities: warm and well perfused, +pedal edema Neuro: A&O Skin: no rash Results Laboratory Results: 12/07/19 04:29 12/07/19 04:29 12/07/19 12/07/19 04:29 04:29 WBC 5.9 RBC 4.22 Hgb 12.8 Hct 38.8 MCV 92 MCH 30.4 MCHC 33.1 RDW 14.7 H Plt Count 425 Sodium 131.7 L Potassium 4.0 Chloride 89 L Carbon Dioxide 36 H Anion Gap 7 BUN 19 Creatinine 0.73 Est GFR ( Amer) > 60 Glucose 317 H Calcium 8.4 11/29/19 14:47 Troponin I < 0.012 Impressions: Chest X-Ray 11/29/19 15:25 IMPRESSION: HEART ENLARGED WITHOUT FAILURE. NO OTHER SIGNIFICANT RADIOGRAPHIC FINDING IN THE CHEST. Chest/Abdomen CTA 11/29/19 16:59 IMPRESSION: 1. No central pulmonary embolism. 2. Commonly reported imaging features of (COVID-19 or viral) pneumonia are present. Other processes such as influenza pneumonia and organizing pneumonia, as can be seen with drug toxicity and connective tissue disease, can cause a similar imaging pattern. [PneTyp] Assessment and Plan - Plan Summary Summary: COVID 19 Pneumonia Acute respiratory failure with hypoxia - Still requires 5-6 O2 via NC - continue dexamethasone - afebrile since 12/02/19 Atrial Flutter with RVR: new diagnosis, confirmed by EKG - cardiology consulted - can not tolerate amio or dilt due to hypotension - continue metoprolol 50 BID and add metoprolol 5 mg IV Q6H - start digoxin 0.25 mg IV Q6H x4 doses for rate control, and then maintenance dose of 0.25 mg PO daily (check daily levels until at steady state) - give 500 mL NS bolus, recheck VS and if BP is fluid responsive, will give additional dose of NS 500 mL IV Acute on Chronic diastolic congestive heart failure: resolved with diuresis, she has now developed contraction alkalosis, HOLD Lasix - re-check BMP in AM Paroxysmal atrial fibrillation - continue home Eliquis and metoprolol Hyperglycemia due to diabetes mellitus type 2 - accuchecks still variable and elevated Morbid obesity with BMI of 40.0-44.9, adult - encourage diet and exercise, may benefit from bariatric surgery referral in future Schizoaffective disorder - restart home medications Acute lower UTI (urinary tract infection) without hematuria - resolved with IV antibiotics - Time Time Spent with patient: 35 or more minutes Anticipated Discharge Disposition: Home, Self Care Anticipated Discharge Timeframe: within 72 hours
[2019-12-07] MEDS: DIGOXIN INJ 0.5 MG/2 ML AMPULE IV SCH ×2 (16:13→21:51)
[2019-12-07] MEDS: ARIPIPRAZOLE 5 MG TABLET PO SCH (21:54)
[2019-12-07] MEDS: ZOLPIDEM TARTRATE 5 MG TABLET PO SCH (21:54)
[2019-12-07] MEDS: INSULIN GLARGINE,HUM.REC.ANLOG 1,000 UNIT/10 ML VIAL SUBCUT SCH (21:58)
[2019-12-07] MEDS: DIPHENHYDRAMINE HCL 50 MG CAPSULE PO SCH (22:00)
[2019-12-07] MEDS: DOXAZOSIN MESYLATE 2 MG TABLET PO SCH (22:00)
[2019-12-07] MEDS: MELATONIN 5 MG TABLET PO PRN (23:31)
[2019-12-08] MEDS ORDERED: NORMAL SALINE 1000 ML 1,000 ML IV ONE (00:15)
[2019-12-08] MEDS: METOPROLOL TARTRATE PF/INJ 5 MG/5 ML SDV IV SCH ×2 (04:38→06:25)
[2019-12-08] MEDS: DIGOXIN INJ 0.5 MG/2 ML AMPULE IV SCH ×2 (05:07→08:37)
[2019-12-08 05:45] LABS: ANION GAP 6 (5-19); BLOOD UREA NITROGEN 20 mg/dL (7-20); CALCIUM 8.4 mg/dL (8.4-10.2); CARBON DIOXIDE 33 mmol/L (22-30); CHLORIDE 95 mmol/L (98-107); DIGOXIN 1.03 ng/mL (0.8-2.0); GLUCOSE 223 mg/dL (75-110)
[2019-12-08] MEDS: DEXAMETHASONE SOD PHOSPHATE INJ 4 MG/1 ML VIAL IV SCH ×3 (06:24→21:58)
[2019-12-08] MEDS: FLUTICASONE PROPIONATE HFA 110 MCG/PUFF 12 GM MDI IH SCH ×3 (08:16→22:08)
[2019-12-08] MEDS: TOLTERODINE TARTRATE 1 MG TABLET PO SCH ×2 (09:18→21:54)
[2019-12-08] MEDS: ASCORBIC ACID 500 MG TABLET PO SCH ×2 (09:18→17:22)
[2019-12-08] MEDS: VENLAFAXINE HCL 75 MG CAP.SR.24H PO SCH (09:18)
[2019-12-08] MEDS: APIXABAN 5 MG TABLET PO SCH ×2 (09:18→21:59)
[2019-12-08] MEDS: INSULIN REG, HUMAN 100 UNIT/ML 3 ML VIAL (PYX) SUBCUT SCH ×4 (09:18→22:10)
[2019-12-08] MEDS: FENOFIBRATE NANOCRYSTALLIZED 145 MG TABLET PO SCH (09:18)
[2019-12-08] MEDS: PREGABALIN 75 MG CAPSULE PO SCH ×2 (09:19→21:57)
[2019-12-08] MEDS: NYSTATIN CREAM 15 GM TP SCH (09:19)
[2019-12-08] MEDS: CHOLECALCIFEROL (D3) 1,000 UNIT (25 MCG) TABLET PO SCH (09:19)
[2019-12-08] MEDS: METOPROLOL SUCCINATE 50 MG TAB.SR.24H PO SCH ×2 (09:19→21:56)
[2019-12-08] MEDS: FAMOTIDINE 20 MG TABLET PO SCH ×2 (09:19→21:55)
--- NOTE | 2019-12-08 11:55 | PDOC PROGRESS REPORT ---
Subjective Progress Note for:: 12/08/19 Subjective:: She feels better overall today. Denies chest pain/pressure, palpitations. HR is now controlled. Glucose remains uncontrolled. Reason For Visit: COMMUNITY ACQUIRED BILATERAL MULTIFOCAL PNEUMONIA, ATRIAL FLUTTER Physical Exam Vital Signs: Temp Pulse Resp BP Pulse Ox 97.3 F 72 26 H 119/76 94 12/08/19 08:12 12/08/19 08:12 12/08/19 08:12 12/08/19 08:12 12/08/19 08:12 Intake & Output 12/07/19 12/08/19 12/09/19 06:59 06:59 06:59 Intake Total 074 526 4436 Balance 519 094 3439 Weight 105.8 kg 106 kg General appearance: PRESENT: no acute distress Mouth exam: PRESENT: dry mucosa Neck exam: ABSENT: JVD Respiratory exam: PRESENT: rhonchi, unlabored. ABSENT: accessory muscle use, crackles, wheezes Cardiovascular exam: PRESENT: irregular rhythm GI/Abdominal exam: PRESENT: soft. ABSENT: distended, tenderness Extremities exam: ABSENT: pedal edema, +1 edema Neurological exam: PRESENT: alert, awake, oriented to person, oriented to place, oriented to time, oriented to situation Psychiatric exam: PRESENT: flat affect Skin exam: ABSENT: rash Results Laboratory Results: 12/07/19 04:29 12/08/19 04:45 12/08/19 04:45 Sodium 134.2 L Potassium 4.0 Chloride 95 L Carbon Dioxide 33 H Anion Gap 6 BUN 20 Creatinine 0.80 Est GFR ( Amer) > 60 Glucose 223 H Calcium 8.4 11/29/19 14:47 Troponin I < 0.012 Impressions: Chest X-Ray 11/29/19 15:25 IMPRESSION: HEART ENLARGED WITHOUT FAILURE. NO OTHER SIGNIFICANT RADIOGRAPHIC FINDING IN THE CHEST. Chest/Abdomen CTA 11/29/19 16:59 IMPRESSION: 1. No central pulmonary embolism. 2. Commonly reported imaging features of (COVID-19 or viral) pneumonia are present. Other processes such as influenza pneumonia and organizing pneumonia, as can be seen with drug toxicity and connective tissue disease, can cause a similar imaging pattern. [PneTyp] Assessment and Plan - Plan Summary Summary: COVID 19 Pneumonia Acute respiratory failure with hypoxia - Still requires 4-5 LPM O2 via NC - continue dexamethasone (D9/10) - afebrile since 12/02/19 Atrial Flutter with RVR: new diagnosis on 12/06, confirmed by EKG. Resolved with addition of digoxin IV and she is back in atrial fibrillation. - cardiology consulted - can not tolerate amio or dilt due to hypotension - continue metoprolol 50 mg BID - telemetry Acute on Chronic diastolic congestive heart failure: resolved with diuresis, she has now developed contraction alkalosis, HOLD Lasix - re-check BMP in AM - encourage oral intake Paroxysmal atrial fibrillation: rate controlled - continue home Eliquis and metoprolol Hyperglycemia due to diabetes mellitus type 2 - accuchecks still variable and elevated - continue Lantus 10 U daily - start mealtime insulin at 3 U TID AC - continue SSI ACHS Morbid obesity with BMI of 40.0-44.9, adult - encourage diet and exercise, may benefit from bariatric surgery referral in future Schizoaffective disorder - continue home medications Acute lower UTI (urinary tract infection) without hematuria - resolved with IV antibiotics - Time Time Spent with patient: 35 or more minutes Anticipated Discharge Disposition: Home, Self Care Anticipated Discharge Timeframe: within 72 hours
--- NOTE | 2019-12-08 12:47 | EKG REPORT ---
SEVERITY:- ABNORMAL ECG - ATRIAL FIBRILLATION, V-RATE 70-150 NONSPECIFIC T ABNORMALITIES, LATERAL LEADS : Confirmed by: Arturo Pascual MD 08-Dec-2019 12:46:41
--- NOTE | 2019-12-08 14:23 | Progress Note ---
Provider Note Provider Note: Did telemetry reviewed Atrial fibrillation with controlled ventricular response at the moment Would not recommend escalation of therapy Would prefer persisting with beta-cesar If rapid rate and just use can consider addition of oral digoxin to her therapeutic regimen Continue systemic anticoagulation I suspect arrhythmia was exacerbated on account of COVID pneumonia and now that she is improving this may subside.
[2019-12-08] MEDS ORDERED: INSULIN LISPRO 100 UNIT/ML 3 ML VIAL SUBCUT SCH (16:00)
[2019-12-08] MEDS ORDERED: INSULIN GLARGINE,HUM.REC.ANLOG 1,000 UNIT/10 ML VIAL (PYX) SUBCUT ONE (21:50)
[2019-12-08] MEDS: ZOLPIDEM TARTRATE 5 MG TABLET PO SCH (21:56)
[2019-12-08] MEDS: ARIPIPRAZOLE 5 MG TABLET PO SCH (21:56)
[2019-12-08] MEDS: DIPHENHYDRAMINE HCL 50 MG CAPSULE PO SCH (21:57)
[2019-12-08] MEDS: DOXAZOSIN MESYLATE 2 MG TABLET PO SCH (21:58)
[2019-12-08] MEDS: INSULIN GLARGINE,HUM.REC.ANLOG 1,000 UNIT/10 ML VIAL SUBCUT SCH (22:10)
[2019-12-08] MEDS: MELATONIN 5 MG TABLET PO PRN (22:24)
[2019-12-09] MEDS: DEXAMETHASONE SOD PHOSPHATE INJ 4 MG/1 ML VIAL IV SCH ×2 (05:49→13:32)
[2019-12-09 06:07] LABS: BLOOD UREA NITROGEN 23 mg/dL (7-20); CALCIUM 8.7 mg/dL (8.4-10.2); CARBON DIOXIDE 32 mmol/L (22-30); GLUCOSE 272 mg/dL (75-110); POTASSIUM 4.3 mmol/L (3.6-5.0)
[2019-12-09 06:18] LABS: CHLORIDE 98 mmol/L (98-107)
[2019-12-09 06:21] LABS: ANION GAP 4 (5-19)
[2019-12-09 06:43] LABS: HEMATOCRIT 42.6 % (36.0-47.0); HEMOGLOBIN 13.9 g/dL (12.0-15.5); MEAN CORPUSCULAR HEMOGLOBIN 29.9 pg (27.0-33.4); MEAN CORPUSCULAR HGB CONC 32.5 g/dL (32.0-36.0); MEAN CORPUSCULAR VOLUME 92 fl (80-97); PLATELET COUNT 390 10^3/uL (150-450); RED BLOOD COUNT 4.63 10^6/uL (3.72-5.28); RED CELL DISTRIBUTION WIDTH 15.2 % (11.5-14.0); WHITE BLOOD COUNT 7.8 10^3/uL (4.0-10.5)
[2019-12-09] MEDS: INSULIN REG, HUMAN 100 UNIT/ML 3 ML VIAL (PYX) SUBCUT SCH ×3 (10:18→21:23)
[2019-12-09] MEDS: INSULIN LISPRO 100 UNIT/ML 3 ML VIAL SUBCUT SCH ×3 (10:18→17:26)
[2019-12-09] MEDS: FLUTICASONE PROPIONATE HFA 110 MCG/PUFF 12 GM MDI IH SCH ×2 (10:19→21:40)
[2019-12-09] MEDS: METOPROLOL SUCCINATE 50 MG TAB.SR.24H PO SCH ×2 (10:19→21:14)
[2019-12-09] MEDS: VENLAFAXINE HCL 75 MG CAP.SR.24H PO SCH (10:19)
[2019-12-09] MEDS: PREGABALIN 75 MG CAPSULE PO SCH ×2 (10:19→21:15)
[2019-12-09] MEDS: APIXABAN 5 MG TABLET PO SCH ×2 (10:19→21:14)
[2019-12-09] MEDS: FAMOTIDINE 20 MG TABLET PO SCH ×2 (10:19→21:15)
[2019-12-09] MEDS: ASCORBIC ACID 500 MG TABLET PO SCH ×2 (10:19→17:26)
[2019-12-09] MEDS: TOLTERODINE TARTRATE 1 MG TABLET PO SCH ×2 (10:19→21:15)
[2019-12-09] MEDS: CHOLECALCIFEROL (D3) 1,000 UNIT (25 MCG) TABLET PO SCH (10:19)
[2019-12-09] MEDS: FENOFIBRATE NANOCRYSTALLIZED 145 MG TABLET PO SCH (10:19)
[2019-12-09] MEDS: DIGOXIN 0.25 MG TABLET PO SCH (18:14)
[2019-12-09] MEDS ORDERED: METOPROLOL TARTRATE PF/INJ 5 MG/5 ML SDV IV ONE (18:30)
--- NOTE | 2019-12-09 19:41 | PDOC PROGRESS REPORT ---
Subjective Progress Note for:: 12/09/19 Subjective:: feeling well overall, notes that breathing is better and she is requiring less O2 Reason For Visit: COMMUNITY ACQUIRED BILATERAL MULTIFOCAL PNEUMONIA, Physical Exam Vital Signs: Temp Pulse Resp BP Pulse Ox 97.7 F 110 H 18 133/92 H 93 12/09/19 16:35 12/09/19 16:35 12/09/19 16:35 12/09/19 16:35 12/09/19 16:35 Intake & Output 12/08/19 12/09/19 12/10/19 06:59 06:59 06:59 Intake Total 737 1480 480 Balance 737 1480 480 Weight 102.1 kg General appearance: PRESENT: no acute distress Mouth exam: PRESENT: moist Neck exam: ABSENT: JVD Respiratory exam: PRESENT: clear to auscultation denis, unlabored Cardiovascular exam: PRESENT: irregular rhythm, tachycardia GI/Abdominal exam: PRESENT: normal bowel sounds, soft. ABSENT: tenderness Neurological exam: PRESENT: alert, awake, oriented to person, oriented to place, oriented to time, oriented to situation Psychiatric exam: PRESENT: flat affect Results Laboratory Results: 12/09/19 05:11 12/09/19 05:11 12/09/19 12/09/19 05:11 05:11 WBC 7.8 RBC 4.63 Hgb 13.9 Hct 42.6 MCV 92 MCH 29.9 MCHC 32.5 RDW 15.2 H Plt Count 390 Sodium 133.8 L Potassium 4.3 Chloride 98 Carbon Dioxide 32 H Anion Gap 4 L BUN 23 H Creatinine 0.79 Est GFR ( Amer) > 60 Glucose 272 H Calcium 8.7 11/29/19 14:47 Troponin I < 0.012 Impressions: Chest X-Ray 11/29/19 15:25 IMPRESSION: HEART ENLARGED WITHOUT FAILURE. NO OTHER SIGNIFICANT RADIOGRAPHIC FINDING IN THE CHEST. Chest/Abdomen CTA 11/29/19 16:59 IMPRESSION: 1. No central pulmonary embolism. 2. Commonly reported imaging features of (COVID-19 or viral) pneumonia are present. Other processes such as influenza pneumonia and organizing pneumonia, as can be seen with drug toxicity and connective tissue disease, can cause a similar imaging pattern. [PneTyp] Assessment and Plan - Plan Summary Summary: COVID 19 Pneumonia Acute respiratory failure with hypoxia - wean off O2 as tolerated - continue dexamethasone (D9/10) - afebrile since 12/02/19 Atrial Flutter with RVR: new diagnosis on 12/06, confirmed by EKG. Resolved with addition of digoxin IV and she is back in atrial fibrillation. - cardiology consulted - can not tolerate amio or dilt due to hypotension - continue metoprolol 50 mg BID - telemetry Paroxysmal atrial fibrillation with RVR: tachycardia to 115 bpm today on telemetry. EKG shows A fib. - continue home Eliquis and metoprolol - restart IV metoprolol - start oral digoxin therapy Acute on Chronic diastolic congestive heart failure: resolved with diuresis, she has now developed contraction alkalosis, HOLD Lasix - re-check BMP in AM - encourage oral intake Hyperglycemia due to diabetes mellitus type 2 - accuchecks still variable and elevated - continue Lantus 10 U daily - start mealtime insulin at 3 U TID AC - continue SSI ACHS Morbid obesity with BMI of 40.0-44.9, adult - encourage diet and exercise, may benefit from bariatric surgery referral in future Schizoaffective disorder - continue home medications Acute lower UTI (urinary tract infection) without hematuria - resolved with IV antibiotics - Time Time Spent with patient: 35 or more minutes Anticipated Discharge Disposition: Home, Self Care Anticipated Discharge Timeframe: within 48 hours
[2019-12-09] MEDS: ARIPIPRAZOLE 5 MG TABLET PO SCH (21:14)
[2019-12-09] MEDS: ZOLPIDEM TARTRATE 5 MG TABLET PO SCH (21:14)
[2019-12-09] MEDS: DIPHENHYDRAMINE HCL 50 MG CAPSULE PO SCH (21:15)
[2019-12-09] MEDS: DOXAZOSIN MESYLATE 2 MG TABLET PO SCH (21:15)
[2019-12-09] MEDS: INSULIN GLARGINE,HUM.REC.ANLOG 1,000 UNIT/10 ML VIAL SUBCUT SCH (21:31)
[2019-12-09] MEDS: MELATONIN 5 MG TABLET PO PRN (21:42)
[2019-12-10] MEDS: DIGOXIN 0.25 MG TABLET PO SCH (06:00)
[2019-12-10 06:59] LABS: ANION GAP 5 (5-19); BLOOD UREA NITROGEN 21 mg/dL (7-20); CALCIUM 8.8 mg/dL (8.4-10.2); CARBON DIOXIDE 31 mmol/L (22-30); CHLORIDE 100 mmol/L (98-107); GLUCOSE 208 mg/dL (75-110); POTASSIUM 4.6 mmol/L (3.6-5.0)
[2019-12-10] MEDS: FENOFIBRATE NANOCRYSTALLIZED 145 MG TABLET PO SCH (08:19)
[2019-12-10] MEDS: INSULIN LISPRO 100 UNIT/ML 3 ML VIAL SUBCUT SCH ×2 (08:19→12:41)
[2019-12-10] MEDS: INSULIN REG, HUMAN 100 UNIT/ML 3 ML VIAL (PYX) SUBCUT SCH ×2 (08:20→12:17)
[2019-12-10] MEDS: CHOLECALCIFEROL (D3) 1,000 UNIT (25 MCG) TABLET PO SCH (09:35)
[2019-12-10] MEDS: APIXABAN 5 MG TABLET PO SCH (09:35)
[2019-12-10] MEDS: ASCORBIC ACID 500 MG TABLET PO SCH (09:35)
[2019-12-10] MEDS: FAMOTIDINE 20 MG TABLET PO SCH (09:36)
[2019-12-10] MEDS: METOPROLOL SUCCINATE 50 MG TAB.SR.24H PO SCH (09:36)
[2019-12-10] MEDS: VENLAFAXINE HCL 75 MG CAP.SR.24H PO SCH (09:36)
[2019-12-10] MEDS: TOLTERODINE TARTRATE 1 MG TABLET PO SCH (09:36)
[2019-12-10] MEDS: PREGABALIN 75 MG CAPSULE PO SCH (09:36)
[2019-12-10] MEDS: FLUTICASONE PROPIONATE HFA 110 MCG/PUFF 12 GM MDI IH SCH (12:17)
--- NOTE | 2019-12-10 13:20 | PDOC DISCHARGE SUMMARY ---
Impression - Admit/DC Date/PCP Admission Date/Primary Care Provider: 11/29/19 21:43 RENALDO DAMON DO Discharge Date: 12/10/19 - Discharge Diagnosis (1) Acute respiratory failure with hypoxia Is this a current diagnosis for this admission?: Yes (2) Hyperglycemia due to diabetes mellitus Is this a current diagnosis for this admission?: Yes (3) Pneumonia due to SARS-associated coronavirus Is this a current diagnosis for this admission?: Yes (4) Acute kidney injury Is this a current diagnosis for this admission?: Yes (5) Atrial fibrillation with RVR Is this a current diagnosis for this admission?: Yes (6) Diabetes mellitus type 2 in obese Is this a current diagnosis for this admission?: Yes (7) Leukocytosis, unspecified Is this a current diagnosis for this admission?: Yes (8) Morbid obesity with BMI of 40.0-44.9, adult Is this a current diagnosis for this admission?: Yes (9) UTI (urinary tract infection) Is this a current diagnosis for this admission?: Yes - Assessment Summary: Acute respiratory failure with hypoxia due to COVID 19 Pneumonia: she was successfully weaned off O2 after treatment with dexamethasone x10 days. She had a normal ambulatory oxygen saturation on the day of discharge. Atrial Fibrillation and Flutter with RVR: she has a chronic history of A fib, and received a new diagnosis of A flutter on 12/06, confirmed by EKG. Cardiology was consulted. A flutter resolved with addition of digoxin and she is back in atrial fibrillation and now rate controlled. Her home metoprolol and Eliquis were continued. She may be able to come off of the digoxin in 1 month or so, aft er complete resolution of Covid infection. Per cardiology, arrhythmia is a common complication of Covid pneumonia and frequently new arrhythmias which develop acutely resolve with resolution of the infection and its symptoms. Acute on Chronic diastolic congestive heart failure: resolved with diuresis while inpatient. Morbid obesity with BMI of 40.0-44.9, adult: complicated by development of DM2. Encourage diet and exercise, and may benefit from bariatric surgery referral in future. Acute lower UTI (urinary tract infection) without hematuria: resolved with IV antibiotics. - Additional Information Resuscitation Status: Full Code Discharge Diet: Cardiac, Diabetic Discharge Activity: Activity As Tolerated Referrals: RENALDO DAMON DO [Primary Care Provider] - Follow up as needed Prescriptions: Digoxin 125 mcg PO DAILY #30 tablet Home Medications: Apixaban [Eliquis 5 mg Tablet] 5 mg PO Q12 03/18/17 Zolpidem Tartrate [Ambien] 10 mg PO QHS 03/18/17 Brexpiprazole [Rexulti] 2 mg PO QHS 02/12/18 Solifenacin Succinate [Vesicare] 10 mg PO DAILY 02/12/18 Oxycodone HCl/Acetaminophen [Percocet 5-325 mg Tablet] 1 tab PO Q8HP PRN 06/19/19 Prazosin HCl [Minipress] 2 mg PO QHS 06/19/19 Tizanidine HCl 6 mg PO Q8 06/19/19 Metoprolol Succinate [Toprol Xl 25 mg Tab.sr] 50 mg PO Q12 30 Days 06/28/19 Lisinopril [Prinivil 5 mg Tablet] 5 mg PO DAILY 09/18/19 Pregabalin [Lyrica] 225 mg PO Q12 09/18/19 Alprazolam [Xanax] 1 mg PO TID 11/30/19 Amitriptyline HCl [Elavil 25 mg Tablet] 50 mg PO QHS 11/30/19 Desvenlafaxine [Desvenlafaxine ER] 100 mg PO DAILY 11/30/19 Empagliflozin/Linagliptin [Glyxambi 25 mg-5 mg Tablet] 1 each PO QAM 11/30/19 Fenofibrate Nanocrystallized [Fenofibrate] 145 mg PO DAILY 11/30/19 Flovent Hfa 220mcg 1 puff IH BID 11/30/19 Glipizide [Glipizide Xl] 10 mg PO DAILY 11/30/19 Metoprolol Succinate [Toprol Xl 50 mg Tab.sr] 50 mg PO BID 11/30/19 Moxifloxacin HCl [Vigamox 0.5% Oph Soln 3 ml] 1 drop OP TID 11/30/19 Mupirocin [Bactroban 2% Ointment 22 gm] 1 applic NASL BID 11/30/19 Digoxin 125 mcg PO DAILY #30 tablet 12/10/19 History of Present Illiness History of Present Illness: SHOSHANA BOWMAN is a 54 year old female Physical Exam Vital Signs: Temp Pulse Resp BP Pulse Ox 97.4 F 73 20 127/80 H 94 12/10/19 11:45 12/10/19 11:45 12/10/19 11:45 12/10/19 11:45 12/10/19 11:45 Intake & Output 12/09/19 12/10/19 12/11/19 06:59 06:59 06:59 Intake Total 1480 480 Balance 1480 480 Weight 102.1 kg 104.3 kg Results Laboratory Results: WBC 7.8 10^3/uL (4.0-10.5) 12/09/19 05:11 RBC 4.63 10^6/uL (3.72-5.28) 12/09/19 05:11 Hgb 13.9 g/dL (12.0-15.5) 12/09/19 05:11 Hct 42.6 % (36.0-47.0) 12/09/19 05:11 MCV 92 fl (80-97) 12/09/19 05:11 MCH 29.9 pg (27.0-33.4) 12/09/19 05:11 MCHC 32.5 g/dL (32.0-36.0) 12/09/19 05:11 RDW 15.2 % (11.5-14.0) H 12/09/19 05:11 Plt Count 390 10^3/uL (150-450) 12/09/19 05:11 Lymph % (Auto) 26.6 % (13-45) 12/06/19 05:45 [place] % (Auto) 7.9 % (3-13) 12/06/19 05:45 Eos % (Auto) 0.5 % (0-6) 12/06/19 05:45 Baso % (Auto) 0.4 % (0-2) 12/06/19 05:45 Absolute Neuts (auto) 4.7 10^3/uL (1.7-8.2) 12/06/19 05:45 Absolute Lymphs (auto) 1.9 10^3/uL (0.5-4.7) 12/06/19 05:45 Absolute Monos (auto) 0.6 10^3/uL (0.1-1.4) 12/06/19 05:45 Absolute Eos (auto) 0.0 10^3/uL (0.0-0.6) 12/06/19 05:45 Absolute Basos (auto) 0.0 10^3/uL (0.0-0.2) 12/06/19 05:45 Seg Neutrophils % 64.6 % (42-78) 12/06/19 05:45 PT 18.0 SEC (11.4-15.4) H 11/29/19 14:47 INR 1.47 11/29/19 14:47 D-Dimer 1.14 ug/mL (0.00-0.50) H 12/04/19 04:39 Sodium 135.5 mmol/L (137-145) L 12/10/19 06:00 Potassium 4.6 mmol/L (3.6-5.0) 12/10/19 06:00 Chloride 100 mmol/L (98-107) 12/10/19 06:00 Carbon Dioxide 31 mmol/L (22-30) H 12/10/19 06:00 Anion Gap 5 (5-19) 12/10/19 06:00 BUN 21 mg/dL (7-20) H 12/10/19 06:00 Creatinine 0.78 mg/dL (0.52-1.25) 12/10/19 06:00 Est GFR ( Amer) > 60 (>60) 12/10/19 06:00 Est GFR (MDRD) Non-Af > 60 (>60) 12/10/19 06:00 Glucose 208 mg/dL (75-110) H 12/10/19 06:00 POC Glucose 125 mg/dL (70-110) H 12/10/19 11:45 Hemoglobin A1c % 8.9 % (4.7-6.0) H 11/30/19 06:33 Lactic Acid 0.9 mmol/L (0.7-2.1) 11/29/19 21:36 Calcium 8.8 mg/dL (8.4-10.2) 12/10/19 06:00 Magnesium 2.0 mg/dL (1.6-2.3) 12/06/19 05:45 Ferritin 93.30 ng/mL (11.1-264.0) 11/29/19 14:47 Total Bilirubin 0.5 mg/dL (0.2-1.3) 12/03/19 06:40 Direct Bilirubin 0.4 mg/dL (0.0-0.4) 12/03/19 06:40 Neonat Total Bilirubin Not Reportable 12/03/19 06:40 Neonat Direct Bilirubin Not Reportable 12/03/19 06:40 Neonat Indirect Bili Not Reportable 12/03/19 06:40 AST 27 U/L (14-36) 12/03/19 06:40 ALT 17 U/L (<35) 12/03/19 06:40 Alkaline Phosphatase 96 U/L (38-126) 12/03/19 06:40 Troponin I < 0.012 ng/mL 11/29/19 14:47 C-Reactive Protein 163.1 mg/L (<10.0) H 12/04/19 04:39 Total Protein 5.7 g/dL (6.3-8.2) L 12/03/19 06:40 Albumin 3.0 g/dL (3.5-5.0) L 12/03/19 06:40 Lipase 39.0 U/L (23-300) 11/29/19 14:47 Serum HCG, Qual NEGATIVE (NEGATIVE) 11/29/19 14:47 Urine Color YELLOW 12/06/19 05:29 Urine Appearance CLEAR 12/06/19 05:29 Urine pH 5.0 (5.0-9.0) 12/06/19 05:29 Ur Specific [place] 1.028 12/06/19 05:29 Urine Protein 30 mg/dL (NEGATIVE) H 12/06/19 05:29 Urine Glucose (UA) NEGATIVE mg/dL (NEGATIVE) 12/06/19 05:29 Urine Ketones NEGATIVE mg/dL (NEGATIVE) 12/06/19 05:29 Urine Blood NEGATIVE (NEGATIVE) 12/06/19 05:29 Urine Nitrite NEGATIVE (NEGATIVE) 12/06/19 05:29 Urine Nitrite (Reflex) NEGATIVE (NEGATIVE) 11/29/19 14:47 Urine Bilirubin NEGATIVE (NEGATIVE) 12/06/19 05:29 Urine Urobilinogen NEGATIVE mg/dL (<2.0) 12/06/19 05:29 Ur Leukocyte Esterase TRACE (NEGATIVE) H 12/06/19 05:29 Leukocyte Esterase Rfl MODERATE (NEGATIVE) H 11/29/19 14:47 Urine WBC (Auto) 3 /HPF 12/06/19 05:29 Urine RBC (Auto) 4 /HPF 12/06/19 05:29 Urine Bacteria (Auto) TRACE /HPF 12/06/19 05:29 Urine WBC (Reflex) 16 /HPF 11/29/19 14:47 Squamous Epi Cells Auto 4 /HPF 12/06/19 05:29 Urine Mucus (Auto) RARE /LPF 12/06/19 05:29 Urine Yeast (Budding) PRESENT /HPF 11/29/19 14:47 Urine Ascorbic Acid 40 (NEGATIVE) H 12/06/19 05:29 Digoxin 1.03 ng/mL (0.8-2.0) 12/08/19 04:45 COVID-19 Source NASOPHARYNGEAL 11/29/19 16:30 COVID-19 (DANYA) DETECTED H 11/29/19 16:30 11/29/19 14:47 Troponin I < 0.012 Impressions: Chest X-Ray 11/29/19 15:25 IMPRESSION: HEART ENLARGED WITHOUT FAILURE. NO OTHER SIGNIFICANT RADIOGRAPHIC FINDING IN THE CHEST. Chest/Abdomen CTA 11/29/19 16:59 IMPRESSION: 1. No central pulmonary embolism. 2. Commonly reported imaging features of (COVID-19 or viral) pneumonia are present. Other processes such as influenza pneumonia and organizing pneumonia, as can be seen with drug toxicity and connective tissue disease, can cause a similar imaging pattern. [PneTyp] Stroke Is this a Stroke Patient?: No Acute Heart Failure Is this a Heart Failure Patient?: Yes Documentation of LVEF assessment?: Yes LVEF: LVEF Greater Than 40% Anticoagulant Therapy: Yes
[2019-12-10 13:42] VITALS: BP 122/92
--- NOTE | 2019-12-12 02:46 | EKG REPORT ---
SEVERITY:- ABNORMAL ECG - ATRIAL FIBRILLATION, V-RATE 79-155 NONSPECIFIC REPOL ABNORMALITY, DIFFUSE LEADS : Confirmed by: Arturo Pascual MD 12-Dec-2019 02:46:13
== END 2019-12-10 14:21 | disposition home or self-care (01) | DRG 177 ==
LOC: ER 14:07 → EH 21:43 → 3W 12-01 16:00 → 3N 12-01 17:54
PROVIDERS: ADMIT Emergency Medicine; ATTEND Hospitalist
PROC: XW033E5 Introduction of Remdesivir Anti-infective into Peripheral Vein, Percutaneous Approach, New Technology Group 5 (ICD-10-PCS; principal; 2019-12-02)
DX: U07.1 COVID-19 (principal); J12.89 Other viral pneumonia; J96.01 Acute respiratory failure with hypoxia; I50.33 Acute on chronic diastolic (congestive) heart failure; N17.9 Acute kidney failure, unspecified; E87.1 Hypo-osmolality and hyponatremia; Z68.41 Body mass index [BMI] 40.0-44.9, adult; N39.0 Urinary tract infection, site not specified; I48.92 Unspecified atrial flutter; I48.0 Paroxysmal atrial fibrillation; E11.65 Type 2 diabetes mellitus with hyperglycemia; J44.9 Chronic obstructive pulmonary disease, unspecified; I11.0 Hypertensive heart disease with heart failure; K21.9 Gastro-esophageal reflux disease without esophagitis; F32.9 Major depressive disorder, single episode, unspecified; F41.9 Anxiety disorder, unspecified; E66.01 Morbid (severe) obesity due to excess calories; Z88.0 Allergy status to penicillin; Z88.8 Allergy status to other drugs, medicaments and biological substances; Z88.2 Allergy status to sulfonamides; Z88.6 Allergy status to analgesic agent; Z82.49 Family history of ischemic heart disease and other diseases of the circulatory system; Z90.49 Acquired absence of other specified parts of digestive tract; F25.9 Schizoaffective disorder, unspecified; Z79.01 Long term (current) use of anticoagulants; Z79.899 Other long term (current) drug therapy; B95.4 Other streptococcus as the cause of diseases classified elsewhere; Z87.891 Personal history of nicotine dependence; Z79.84 Long term (current) use of oral hypoglycemic drugs; Z82.3 Family history of stroke; Z83.3 Family history of diabetes mellitus
CPT/HCPCS: 36415; 71045; 71275; 80048; 80053; 80162; 81001; 82728; 82962; 83036; 83605; 83690; 83735; 84484; 84703; 85025; 85027; 85379; 85610; 86140; 87040; 87086; 87088; 87635; 93005; 93010; 94640; 96361; 96365; 96375; 99285; C9803; J0456; J0696; J1100; J1160; J1650; J1815; J1940; J2060; J2270; J3490; J7030; J7050; J7060; J7120